=== PATIENT | female | born 1940 | race Caucasian/White ===

== ENCOUNTER 2019-05-20 17:51 | Inpatient (IN) | payer MEDICARE, BC, OTHER ==
--- NOTE | 2019-05-20 18:26 | ED ---
General Adult HPI - General Chief complaint: Arrhythmia/Palpitations Stated complaint: low heart rate Time Seen by Provider: 05/20/19 17:59 Source: EMS Mode of arrival: EMS Limitations: no limitations - History of Present Illness Initial comments: Dictation was produced using [employer] dictation software. please excuse any grammatical, word or spelling errors. Chief Complaint: 78-year-old female presents via transfer from [facility] for bradycardia and EKG and pelvis. History of Present Illness: she was initially seen at [facility] for worsening generalized weakness. Patient was initially evaluated [facility] by ER physician there. She is brought in by EMS from [facility] for worsening weakness. Upon EMS evaluation patient was found have bradycardia in the 40s. She was also found to have low blood pressure. She is given atropine by EMS with improvement of the bradycardia. [facility] physician noted that patient had abnormal EKG. [facility] physician noted that there were abnormal changes found in the lateral precordial leads. She was not started on heparin. Patient denies any chest pain or shortness of breath. Really, she complains of weakness. [facility] physician did discuss EKG with me however she was held at [facility] until results from the labs were completed. She was noted to have findings of acute kidney injury. She did have an elevated troponin measured at 0.05 The ROS documented in this emergency department record has been reviewed and confirmed by me. Those systems with pertinent positive or negative responses have been documented in the HPI. All other systems are other negative and/or noncontributory. PHYSICAL EXAM: General Impression: Alert and oriented x3, not in acute distress HEENT: Normocephalic atraumatic, extra-ocular movements intact, pupils equal and reactive to light bilaterally, mucous membranes moist. Cardiovascular: Heart regular rate and rhythm, S1&S2 audible, no murmurs, rubs or gallops Chest: Lungs clear to auscultation bilaterally, no rhonchi, no wheeze, no rales Abdomen: Bowel sounds present, abdomen soft, non-tender, non-distended, no organomegaly Musculoskeletal: Pulses present and equal in all extremities, no peripheral edema Motor: no focal deficits noted Neurological: CN II-XII grossly intact, no focal motor or sensory deficits noted Skin: Intact with no visualized rashes Psych: Normal affect and mood ED course:78-year-old female presents with generalized weakness. She was seen and evaluated [facility]. She did have a normal low hypomagnesemia. She is normotensive with a heart rate in the 40s. She was sent to our facility for cardiology consultation. Her coffee taster is Dr. Carter. She was given aspirin at [facility]. Patient is hemodynamically stable at this time. She is evaluated at bedside found not to be in any acute distress. Vitals are stable. EKG was obtained. No concerns for ST segment elevation DE at this time. She denies any ACS symptoms. No chest pain shortness of breath.Discussed patient case with Dr. Carter was operations project manager for cardiology. He is very familiar with patient. He will be reviewing patient's EKG.Dr. 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 There doesn't appear to be any significant increase compared to troponin ordered at [facility]. Patient be admitted with cardiology in consultation for bradycardia. Nephrology beating be consulted for acute kidney injury. EKG interpretation: Ventricular rate 45, sinus. Cardiac, CO interval 152, care is 146, QTC 496. No CO prolongation, no QTC prolongation, no ST or T-wave changes noted. - Related Data Home Medications Medication Instructions Recorded Confirmed Cyanocobalamin [Vitamin B-12] 500 mcg PO DAILY 04/23/14 05/20/19 Pravastatin Sodium [Pravachol] 20 mg PO HS 04/23/14 05/20/19 ALPRAZolam [Xanax] 0.25 mg PO BID PRN 05/20/19 05/20/19 Acetaminophen Tab [Tylenol] 650 mg PO Q6H PRN 05/20/19 05/20/19 Albuterol Nebulized [Ventolin 2.5 mg INHALATION RT-Q4H PRN 05/20/19 05/20/19 Nebulized] Amiodarone [Cordarone] 200 mg PO DAILY 05/20/19 05/20/19 Apixaban [Eliquis] 5 mg PO BID 05/20/19 05/20/19 Budesonide 1 mg INHALATION RT-BID 05/20/19 05/20/19 Divalproex Sodium [Depakote 500 mg PO DAILY 05/20/19 05/20/19 Sprinkle] Famotidine [Pepcid] 20 mg PO DAILY 05/20/19 05/20/19 Ferrous Sulfate [Feosol] 325 mg PO BID 05/20/19 05/20/19 Furosemide [Lasix] 20 mg PO BID 05/20/19 05/20/19 Insulin Lispro [humaLOG Kwikpen] 5 unit SQ AC-TID 05/20/19 05/20/19 Levothyroxine Sodium 112 mcg PO DAILY 05/20/19 05/20/19 Lisinopril [Prinivil] 5 mg PO DAILY 05/20/19 05/20/19 Magnesium Oxide 400 mg PO DAILY 05/20/19 05/20/19 Melatonin 10 mg PO HS 05/20/19 05/20/19 Metoprolol Tartrate [Lopressor] 25 mg PO BID 05/20/19 05/20/19 Midodrine [ProAmatine] 5 mg PO TID 05/20/19 05/20/19 [place]-3 Fatty Acids/Fish Oil [Fish 1 cap PO DAILY 05/20/19 05/20/19 Oil 1,000 mg Softgel] Sennosides [Senna] 8.6 mg PO BID 05/20/19 05/20/19 Sertraline [Zoloft] 50 mg PO DAILY 05/20/19 05/20/19 Sucralfate [Carafate] 1 gm PO ACHS 05/20/19 05/20/19 Previous Rx's Medication Instructions Recorded Insulin Glargine [Lantus] 20 unit SQ HS 30 Days vial 04/25/14 Allergies Allergy/AdvReac Type Severity Reaction Status Date / Time doxycycline calcium Allergy Anaphylaxis Verified 05/20/19 18:49 [From Vibramycin] doxycycline hyclate Allergy Anaphylaxis Verified 05/20/19 18:49 [From Vibramycin] doxycycline monohydrate Allergy Anaphylaxis Verified 05/20/19 18:49 [From Vibramycin] Iodinated Contrast- Oral and Allergy Anaphylaxis Verified 05/20/19 18:49 IV Dye [Iodinated Contrast Media - IV Dye] Review of Systems ROS Statement: Those systems with pertinent positive or pertinent negative responses have been documented in the HPI. ROS Other: All systems not noted in ROS Statement are negative. Past Medical History Past Medical History: Heart Failure, CVA/TIA, Diabetes Mellitus, Hypertension, Renal Disease Additional Past Medical History / Comment(s): TIAs 4 with previous TIA 18 months ago. Motor seizures left leg anemic, irregular heart beat History of Any Multi-Drug Resistant Organisms: None Reported Past Surgical History: Appendectomy, Hysterectomy, Orthopedic Surgery Additional Past Surgical History / Comment(s): left knee arthroscopy, cyst removal (pilonidal cyst) Past Anesthesia/Blood Transfusion Reactions: No Reported Reaction Past Psychological History: Anxiety Smoking Status: Never smoker Past Alcohol Use History: None Reported Past Drug Use History: None Reported - Past Family History Father Family Medical History: Congestive Heart Failure (CHF) Mother Family Medical History: Congestive Heart Failure (CHF) Sister(s) Family Medical History: Cancer (Breast cancer) Son(s) Family Medical History: Hypertension General Exam Limitations: no limitations Course Vital Signs 05/20/19 17:58 Temperature 97.6 F Pulse Rate 45 L Respiratory 16 Rate Blood Pressure 144/73 O2 Sat by Pulse 100 Oximetry Medical Decision Making - Lab Data Lab Results 05/20/19 Range/Units 18:36 Troponin I 0.045 H* (0.000-0.034) ng/mL Disposition Clinical Impression: Bradycardia, FREYA (acute kidney injury) Disposition: ADMITTED IP TO THIS [facility] Condition: Fair Referrals: Eleazar Mills MD [Primary Care Provider] - 1-2 days Decision Time: 19:44
[2019-05-20] MEDS ORDERED: HEPARIN SODIUM,PORCINE 5,000 UNIT/ML 1 ML VIAL IV ONE (18:36)
[2019-05-20] MEDS ORDERED: HEPARIN SODIUM,PORCINE 5,000 UNIT/ML 1 ML VIAL IV PRN (18:36)
[2019-05-20] MEDS ORDERED: HEPARIN SOD,PORK IN 0.45% NACL 25,000 UNIT in 0.45% NACL 1 250ML.BAG IV SCH (18:45)
[2019-05-20] MEDS ORDERED: SODIUM CHLORIDE 0.9% 1,000 ML IV SCH (19:45)
[2019-05-20] MEDS ORDERED: ACETAMINOPHEN TAB 325 MG TAB PO PRN ×2 (19:45→22:05)
[2019-05-20] MEDS ORDERED: NALOXONE 0.4 MG/ML 1 ML VIAL IV PRN (19:45)
[2019-05-20] MEDS ORDERED: ONDANSETRON 4 MG/2 ML VIAL IVP PRN (19:45)
[2019-05-20 21:22] LABS: Glucose,Whole Blood 156 mg/dL (75-99)
[2019-05-20] MEDS ORDERED: ALPRAZolam 0.25 MG TAB PO PRN (22:05)
[2019-05-20] MEDS: FERROUS SULFATE 325 MG TAB PO SCH (22:35)
[2019-05-20] MEDS: INSULIN DETEMIR (LEVEMIR) 100 UNIT/ML SYR SQ SCH (22:35)
[2019-05-20] MEDS: APIXABAN 5 MG TAB PO SCH (22:35)
[2019-05-21 06:16] LABS: Glucose,Whole Blood 131 mg/dL (75-99)
[2019-05-21] MEDS: SUCRALFATE 1 GM TAB PO SCH ×4 (06:33→20:29)
[2019-05-21] MEDS: INSULIN ASPART (NovoLOG) 100 UNIT/ML VIAL SQ SCH ×4 (06:33→21:00)
[2019-05-21] MEDS: LEVOTHYROXINE 112 MCG TAB PO SCH (06:33)
[2019-05-21 06:44] LABS: Anisocytosis Slight; Basophils % (A) 1 %; Eosinophils # (A) 0.3 k/uL (0-0.7); Eosinophils % (A) 4 %; HGB 9.6 gm/dL (11.4-16.0); Hypochromasia Slight; Lymphocytes # (A) 1.2 k/uL (1.0-4.8); Lymphocytes % (A) 18 %; MCH 28.2 pg (25.0-35.0); Mean Platelet Volume 6.9; Monocytes # (A) 0.6 k/uL (0-1.0); Monocytes % (A) 9 %; Neutrophils # (A) 4.2 k/uL (1.3-7.7); Neutrophils % (A) 66 %; Platelet Count 177 k/uL (150-450); RBC 3.41 m/uL (3.80-5.40); RDW 17.5 % (11.5-15.5); WBC 6.4 k/uL (3.8-10.6)
[2019-05-21 07:27] LABS: Calcium 9.6 mg/dL (8.4-10.2); Potassium 4.3 mmol/L (3.5-5.1)
[2019-05-21] MEDS: BUDESONIDE 1 MG/2 ML NEBU INHALATION SCH ×2 (08:53→19:57)
[2019-05-21] MEDS ORDERED: LISINOPRIL 5 MG TAB PO SCH (09:00)
[2019-05-21] MEDS ORDERED: NON FORMULARY DRUG (Omega-3 Fatty Acids/Fish Oil [Fish Oil 1,000 Mg Softgel] 1 CAP) PO SCH (09:00)
[2019-05-21] MEDS ORDERED: FUROSEMIDE 20 MG TAB PO SCH (09:00)
[2019-05-21] MEDS ORDERED: AMIODARONE 200 MG TAB PO SCH (09:00)
[2019-05-21] MEDS: DIVALPROEX SPRINKLE 125 MG CAP.SPRINK PO SCH (09:08)
[2019-05-21] MEDS: FAMOTIDINE 20 MG TAB PO SCH (09:08)
[2019-05-21] MEDS: FERROUS SULFATE 325 MG TAB PO SCH ×2 (09:08→20:29)
[2019-05-21] MEDS: APIXABAN 5 MG TAB PO SCH ×2 (09:08→20:29)
[2019-05-21] MEDS: SENNOSIDES 8.6 MG TAB PO SCH ×2 (09:08→20:29)
[2019-05-21] MEDS: SERTRALINE 50 MG TAB PO SCH (09:08)
[2019-05-21] MEDS: CYANOCOBALAMIN 500 MCG TAB PO SCH (09:08)
[2019-05-21] MEDS: MIDODRINE 5 MG TAB PO SCH ×3 (09:08→16:44)
--- NOTE | 2019-05-21 09:58 | P.HPIM ---
History of Present Illness H&P Date: 05/21/19 Chief Complaint: Generalized weakness This is 78 years old female who was discharged from intermediate to her daughter's home recently continued to have weakness at home after she had some improvement at the intermediate patient felt weak and lethargic and went to [facility] where she was bradycardic in the low 40s and patient was sent to [facility] for further evaluation by cardiology. EKG showed bradycardia seems to be sinus without significant AV block patient was found to have acute kidney injury and slight elevation in troponin and admitted for further evaluation. Patient daughter and grandson at the bedside who stated that she's been declining slowly and gradually but patient is alert and oriented 3 able to provide detailed information and stated that she was taking her Lasix everyday along with her cardiac medication including Lopressor and amiodarone and Lessina Prell. Patient on admission stated that her symptoms improved after stopping medication and has more energy today. Patient denied recent fever chills nausea vomiting abdominal pain dizziness lightheadedness or blurry vision stated that oral intake has been minimum since patient was sent to a intermediate. Patient is denying tobacco alcohol or drug abuse Review of Systems All 14 systems reviewed and negative except as above Past Medical History Past Medical History: Heart Failure, CVA/TIA, Diabetes Mellitus, Hypertension, Renal Disease Additional Past Medical History / Comment(s): TIAs 4 with previous TIA 18 months ago. Motor seizures left leg anemic, irregular heart beat; murmur History of Any Multi-Drug Resistant Organisms: None Reported Past Surgical History: Appendectomy, Hysterectomy, Orthopedic Surgery Additional Past Surgical History / Comment(s): left knee arthroscopy, cyst rem oval (pilonidal cyst) Past Anesthesia/Blood Transfusion Reactions: No Reported Reaction Smoking Status: Never smoker - Past Family History Father Family Medical History: Congestive Heart Failure (CHF) Mother Family Medical History: Congestive Heart Failure (CHF) Sister(s) Family Medical History: Cancer Additional Family Medical History / Comment(s): breast CA Son(s) Family Medical History: Hypertension Medications and Allergies Home Medications Medication Instructions Recorded Confirmed Type Cyanocobalamin [Vitamin B-12] 500 mcg PO DAILY 04/23/14 05/20/19 History Pravastatin Sodium [Pravachol] 20 mg PO HS 04/23/14 05/20/19 History ALPRAZolam [Xanax] 0.25 mg PO BID PRN 05/20/19 05/20/19 History Acetaminophen Tab [Tylenol] 650 mg PO Q6H PRN 05/20/19 05/20/19 History Albuterol Nebulized [Ventolin 2.5 mg INHALATION RT-Q4H PRN 05/20/19 05/20/19 History Nebulized] Amiodarone [Cordarone] 200 mg PO DAILY 05/20/19 05/20/19 History Apixaban [Eliquis] 5 mg PO BID 05/20/19 05/20/19 History Budesonide 1 mg INHALATION RT-BID 05/20/19 05/20/19 History Divalproex Sodium [Depakote 500 mg PO DAILY 05/20/19 05/20/19 History Sprinkle] Famotidine [Pepcid] 20 mg PO DAILY 05/20/19 05/20/19 History Ferrous Sulfate [Feosol] 325 mg PO BID 05/20/19 05/20/19 History Furosemide [Lasix] 20 mg PO BID 05/20/19 05/20/19 History Insulin Glargine [Lantus] 12 unit SQ HS 05/20/19 05/20/19 History Insulin Lispro [humaLOG Kwikpen] 5 unit SQ AC-TID 05/20/19 05/20/19 History Levothyroxine Sodium 112 mcg PO DAILY 05/20/19 05/20/19 History Lisinopril [Prinivil] 5 mg PO DAILY 05/20/19 05/20/19 History Magnesium Oxide 400 mg PO DAILY 05/20/19 05/20/19 History Melatonin 10 mg PO HS 05/20/19 05/20/19 History Metoprolol Tartrate [Lopressor] 25 mg PO BID 05/20/19 05/20/19 History Midodrine [ProAmatine] 5 mg PO TID 05/20/19 05/20/19 History [place]-3 Fatty Acids/Fish Oil [Fish 1 cap PO DAILY 05/20/19 05/20/19 History Oil 1,000 mg Softgel] Sennosides [Senna] 8.6 mg PO BID 05/20/19 05/20/19 History Sertraline [Zoloft] 50 mg PO DAILY 05/20/19 05/20/19 History Sucralfate [Carafate] 1 gm PO ACHS 05/20/19 05/20/19 History Allergies Allergy/AdvReac Type Severity Reaction Status Date / Time doxycycline calcium Allergy Anaphylaxis Verified 05/20/19 18:49 [From Vibramycin] doxycycline hyclate Allergy Anaphylaxis Verified 05/20/19 18:49 [From Vibramycin] doxycycline monohydrate Allergy Anaphylaxis Verified 05/20/19 18:49 [From Vibramycin] Iodinated Contrast- Oral and Allergy Anaphylaxis Verified 05/20/19 18:49 IV Dye [Iodinated Contrast Media - IV Dye] Physical Exam Vitals: Vital Signs Temp Pulse Pulse Resp BP BP BP 05/21/19 09:06 56 L 05/21/19 08:57 54 L 05/21/19 08:00 98.1 F 56 L 20 98/43 05/21/19 03:45 98.2 F 48 L 17 115/55 05/21/19 03:16 51 L 17 05/20/19 23:54 51 L 17 103/59 05/20/19 21:17 98.5 F 45 L 17 145/54 05/20/19 17:58 97.6 F 45 L 16 144/73 Pulse Ox 05/21/19 09:06 05/21/19 08:57 05/21/19 08:00 100 05/21/19 03:45 98 05/21/19 03:16 05/20/19 23:54 100 05/20/19 21:17 100 05/20/19 17:58 100 Intake and Output 05/20/19 05/21/19 05/21/19 22:59 06:59 14:59 Intake Total 420 200 Balance 420 200 Intake: Amount of Fluid Infused ( 20 ml) Oral 400 200 Other: Voiding Method Bedside Commode # Voids 3 1 Weight 58.06 kg 59 kg Gen.: in stated age, no acute distress, dehydrated Heart: Normal S1-S2 Lungs: Clear to auscultation bilaterally Abdomen: Soft, no tenderness, positive bowel sounds in all 4 quadrant no guarding or rebound Skin: No new rash Psych: Alert and oriented 3 Neuro: No focal deficit Lower extremity without edema Results CBC & Chem 7: 05/21/19 05:48 05/21/19 05:48 Labs: Abnormal Lab Results - Last 24 Hours (Table) 05/20/19 05/20/19 05/21/19 Range/Units 18:36 21:19 05:48 RBC 3.41 L (3.80-5.40) m/uL Hgb 9.6 L (11.4-16.0) gm/dL Hct 31.0 L (34.0-46.0) % RDW 17.5 H (11.5-15.5) % Carbon Dioxide (22-30) mmol/L BUN (7-17) mg/dL Creatinine (0.52-1.04) mg/dL Glucose (74-99) mg/dL POC Glucose (mg/dL) 156 H (75-99) mg/dL Troponin I 0.045 H* (0.000-0.034) ng/mL 05/21/19 05/21/19 05/21/19 Range/Units 05:48 05:48 06:15 RBC (3.80-5.40) m/uL Hgb (11.4-16.0) gm/dL Hct (34.0-46.0) % RDW (11.5-15.5) % Carbon Dioxide 31 H (22-30) mmol/L BUN 70 H (7-17) mg/dL Creatinine 2.50 H (0.52-1.04) mg/dL Glucose 124 H (74-99) mg/dL POC Glucose (mg/dL) 131 H (75-99) mg/dL Troponin I 0.037 H* (0.000-0.034) ng/mL Thrombosis Risk Factor Assmnt - Choose All That Apply Any of the Below Risk Factors Present?: No Each Risk Factor Represents 3 Points: Age 75 years or older Thrombosis Risk Factor Assessment Total Risk Factor Score: 3 Thrombosis Risk Factor Assessment Level: Moderate Risk Assessment and Plan Assessment: 1. Generalized weakness. 2. Acute kidney injury likely secondary to Lasix and dehydration. 3. Bradycardia. 4. History of atrial fibrillation. 5. Debility and deconditioning. 6. Slight elevation in troponin likely related to acute kidney injury and demand mismatch ischemia. 7. Chronic respiratory failure home oxygen dependent for the last 2 month. 8. Insomnia. 9. Polypharmacy. 10. Chronic nausea. 11. Anxiety and depression. 12. Diabetes mellitus type 2 insulin-dependent Plan discussed with patient and her family at the bedside where I would like to give patient's normal saline at 100 mL/h for 24 hours repeat her electrolytes in the morning and magnesium I would like also to hold any nephrotoxic medication including Lasix and lisinopril. For her bradycardia her heart rate that has improved since yesterday after I held amiodarone and Lopressor I would like to have cardiology evaluated the patient's for necessity of her treatment continue with factor X inhibitors as anticoagulation and heart rate currently seems to be controlled. We'll resume her home medication and insulin sliding scale along with her long-acting insulin. Patient will need evaluation from physical therapy prior to discharge and during the hospital stay
[2019-05-21] MEDS: SODIUM CHLORIDE 0.9% 1,000 ML IV SCH ×2 (10:28→20:28)
[2019-05-21 12:02] LABS: Glucose,Whole Blood 155 mg/dL (75-99)
[2019-05-21] MEDS: MAGNESIUM OXIDE 400 MG TAB PO SCH (13:39)
--- NOTE | 2019-05-21 15:08 | P.CRDCN ---
History of Present Illness History of present illness: This is Lidia Contreras PA-C dictating a consult on this patient The patient was interviewed and examined by me IMPRESSION / ASSESSMENT: Symptomatic sinus bradycardia, likely underlying sick sinus syndrome exacerbated by drug therapy with amiodarone and metoprolol, improving Borderline elevated troponin, trending down, most likely secondary to worsening renal function possibly exacerbated by bradycardia Paroxysmal atrial fibrillation, on anticoagulation acute kidney injury PLAN: Continue holding metoprolol and amiodarone Lasix and lisinopril are on hold now, agree Continue anticoagulation with Eliquis Check TSH and mag HPI Patient is a 78-year-old female with a past medical history of paroxysmal atrial fibrillation who intially presented to [facility] ED with complaints of weakness. She states she has leg weakness at baseline uses a walker but over the last few days and has gotten worse. She also endorses worsening shortness of breath on exertion. Denies chest pain or palpitations, lightheadedness, dizziness, syncope. She was transferred to after being found to have an abnormal EKG. EKG upon admission to [facility] showed sinus bradycardia with a right bundle branch block, biphasic T waves anteriorly, prolonged QT interval. She was also found to have an acute kidney injury with elevated creatinine of 2.5 and BUN 70 as well as elevated troponin at 0.045. Her metoprolol and amiodarone were held. She is seen and examined resting in bed, feeling better, denies any dizziness, shortness of breath, chest pain, palpitations. ROS: No fevers, chills or rigors, no cough, phlegm or expectoration, no nausea, vomiting or diarrhea, no hematuria, dysuria, no strokes or seizures, no skin lesions. EXAMINATION: Temperature 98.1F, pulse 56, blood pressure 98/43, oxygen saturation 100% on 3 L nasal cannula On exam patient is resting comfortably in bed, in no acute distress Breath sounds mildly diminished but clear bilaterally Heart is bradycardic and regular, systolic murmur appreciated No elevated JVD No lower extremity edema REVIEW OF LABS, ECG & MEDICAL DATA Initial EKG showed sinus bradycardia with a right bundle branch block, biphasic T waves anteriorly, prolonged QT interval, she has had deep T wave inversions in the precordial leads on EKGs in prior hospitalizatons Telemetry revealed sinus bradycardia WBC 6.4, hemoglobin 9.6, potassium 4.3, BUN 70, creatinine 2.5, troponin 0.037 from 0.045 Past Medical History Past Medical History: Heart Failure, CVA/TIA, Diabetes Mellitus, Hypertension, Renal Disease Additional Past Medical History / Comment(s): TIAs 4 with previous TIA 18 months ago. Motor seizures left leg anemic, irregular heart beat; murmur History of Any Multi-Drug Resistant Organisms: None Reported Past Surgical History: Appendectomy, Hysterectomy, Orthopedic Surgery Additional Past Surgical History / Comment(s): left knee arthroscopy, cyst removal (pilonidal cyst) Past Anesthesia/Blood Transfusion Reactions: No Reported Reaction Smoking Status: Never smoker - Past Family History Father Family Medical History: Congestive Heart Failure (CHF) Mother Family Medical History: Congestive Heart Failure (CHF) Sister(s) Family Medical History: Cancer Additional Family Medical History / Comment(s): breast CA Son(s) Family Medical History: Hypertension Medications and Allergies Home Medications Medication Instructions Recorded Confirmed Type Cyanocobalamin [Vitamin B-12] 500 mcg PO DAILY 04/23/14 05/20/19 History Pravastatin Sodium [Pravachol] 20 mg PO HS 04/23/14 05/20/19 History ALPRAZolam [Xanax] 0.25 mg PO BID PRN 05/20/19 05/20/19 History Acetaminophen Tab [Tylenol] 650 mg PO Q6H PRN 05/20/19 05/20/19 History Albuterol Nebulized [Ventolin 2.5 mg INHALATION RT-Q4H PRN 05/20/19 05/20/19 History Nebulized] Amiodarone [Cordarone] 200 mg PO DAILY 05/20/19 05/20/19 History Apixaban [Eliquis] 5 mg PO BID 05/20/19 05/20/19 History Budesonide 1 mg INHALATION RT-BID 05/20/19 05/20/19 History Divalproex Sodium [Depakote 500 mg PO DAILY 05/20/19 05/20/19 History Sprinkle] Famotidine [Pepcid] 20 mg PO DAILY 05/20/19 05/20/19 History Ferrous Sulfate [Feosol] 325 mg PO BID 05/20/19 05/20/19 History Furosemide [Lasix] 20 mg PO BID 05/20/19 05/20/19 History Insulin Glargine [Lantus] 12 unit SQ HS 05/20/19 05/20/19 History Insulin Lispro [humaLOG Kwikpen] 5 unit SQ AC-TID 05/20/19 05/20/19 History Levothyroxine Sodium 112 mcg PO DAILY 05/20/19 05/20/19 History Lisinopril [Prinivil] 5 mg PO DAILY 05/20/19 05/20/19 History Magnesium Oxide 400 mg PO DAILY 05/20/19 05/20/19 History Melatonin 10 mg PO HS 05/20/19 05/20/19 History Metoprolol Tartrate [Lopressor] 25 mg PO BID 05/20/19 05/20/19 History Midodrine [ProAmatine] 5 mg PO TID 05/20/19 05/20/19 History [place]-3 Fatty Acids/Fish Oil [Fish 1 cap PO DAILY 05/20/19 05/20/19 History Oil 1,000 mg Softgel] Sennosides [Senna] 8.6 mg PO BID 05/20/19 05/20/19 History Sertraline [Zoloft] 50 mg PO DAILY 05/20/19 05/20/19 History Sucralfate [Carafate] 1 gm PO ACHS 05/20/19 05/20/19 History Allergies Allergy/AdvReac Type Severity Reaction Status Date / Time doxycycline calcium Allergy Anaphylaxis Verified 05/20/19 18:49 [From Vibramycin] doxycycline hyclate Allergy Anaphylaxis Verified 05/20/19 18:49 [From Vibramycin] doxycycline monohydrate Allergy Anaphylaxis Verified 05/20/19 18:49 [From Vibramycin] Iodinated Contrast- Oral and Allergy Anaphylaxis Verified 05/20/19 18:49 IV Dye [Iodinated Contrast Media - IV Dye] Physical Exam Vitals: Vital Signs Temp Pulse Pulse Resp BP BP BP 05/21/19 09:06 56 L 05/21/19 08:57 54 L 05/21/19 08:00 98.1 F 56 L 20 98/43 05/21/19 03:45 98.2 F 48 L 17 115/55 05/21/19 03:16 51 L 17 05/20/19 23:54 51 L 17 103/59 05/20/19 21:17 98.5 F 45 L 17 145/54 05/20/19 17:58 97.6 F 45 L 16 144/73 Pulse Ox 05/21/19 09:06 05/21/19 08:57 05/21/19 08:00 100 05/21/19 03:45 98 05/21/19 03:16 05/20/19 23:54 100 05/20/19 21:17 100 05/20/19 17:58 100 Intake and Output 05/20/19 05/21/19 05/21/19 22:59 06:59 14:59 Intake Total 420 200 120 Balance 420 200 120 Intake: Amount of Fluid Infused ( 20 ml) Oral 400 200 120 Other: Voiding Method Bedside Commode # Voids 3 1 Weight 58.06 kg 59 kg Results 05/21/19 05:48 05/21/19 05:48 Cardiac Enzymes 05/20/19 05/21/19 Range/Units 18:36 05:48 Troponin I 0.045 H* 0.037 H* (0.000-0.034) ng/mL CBC 05/21/19 Range/Units 05:48 WBC 6.4 (3.8-10.6) k/uL RBC 3.41 L (3.80-5.40) m/uL Hgb 9.6 L (11.4-16.0) gm/dL Hct 31.0 L (34.0-46.0) % Plt Count 177 (150-450) k/uL Comprehensive Metabolic Panel 05/21/19 Range/Units 05:48 Sodium 141 (137-145) mmol/L Potassium 4.3 (3.5-5.1) mmol/L Chloride 102 (98-107) mmol/L Carbon Dioxide 31 H (22-30) mmol/L BUN 70 H (7-17) mg/dL Creatinine 2.50 H (0.52-1.04) mg/dL Glucose 124 H (74-99) mg/dL Calcium 9.6 (8.4-10.2) mg/dL Current Medications Generic Name Dose Route Start Last Admin Trade Name Freq PRN Reason Stop Dose Admin Acetaminophen 650 mg 05/20/19 19:45 Tylenol Tab PO Q6HR PRN Mild Pain or Fever > 100.5 Acetaminophen 650 mg 05/20/19 22:05 Tylenol Tab PO Q6H PRN Pain Albuterol Sulfate 2.5 mg 05/20/19 22:05 Ventolin Nebulized INHALATION RT-Q4H PRN Shortness Of Breath Alprazolam 0.25 mg 05/20/19 22:05 Xanax PO BID PRN Anxiety Apixaban 5 mg 05/20/19 22:30 05/21/19 09:08 Eliquis PO 5 mg BID JC Administration Budesonide 1 mg 05/21/19 08:00 05/21/19 08:53 Pulmicort INHALATION 1 mg RT-BID JC Administration Cyanocobalamin 500 mcg 05/21/19 09:00 05/21/19 09:08 Vitamin B-12 PO 500 mcg DAILY JC Administration Divalproex Sodium 500 mg 05/21/19 09:00 05/21/19 09:08 Depakote Sprinkle PO 500 mg DAILY JC Administration Famotidine 20 mg 05/21/19 09:00 05/21/19 09:08 Pepcid PO 20 mg DAILY JC Administration Ferrous Sulfate 325 mg 05/20/19 22:15 05/21/19 09:08 Feosol PO 325 mg BID JC Administration Sodium Chloride 1,000 mls @ 100 mls/hr 05/21/19 09:30 05/21/19 10:28 Saline 0.9% IV 100 mls/hr .Q10H JC Administration Insulin Aspart 0 unit 05/21/19 07:30 05/21/19 12:43 Novolog SQ 1 unit ACHS JC Administration Protocol Insulin Detemir 12 unit 05/20/19 22:30 05/20/19 22:35 Levemir SQ 12 unit HS JC Administration Levothyroxine Sodium 112 mcg 05/21/19 06:30 05/21/19 06:33 Synthroid PO 112 mcg DAILY@0630 JC Administration Magnesium Oxide 400 mg 05/21/19 09:00 Mag-Ox PO DAILY JC Melatonin 10 mg 05/21/19 21:00 Melatonin PO HS JC Midodrine 5 mg 05/21/19 09:00 05/21/19 09:08 Proamatine PO 5 mg TID@0900,1300,1700 JC Administration Naloxone HCl 0.2 mg 05/20/19 19:45 Narcan IV Q2M PRN Opioid Reversal Ondansetron HCl 4 mg 05/20/19 19:45 Zofran IVP Q8HR PRN Nausea And Vomiting Pravastatin Sodium 20 mg 05/21/19 21:00 Pravachol PO HS JC Senna 8.6 mg 05/21/19 09:00 05/21/19 09:08 Senokot PO 8.6 mg BID JC Administration Sertraline HCl 50 mg 05/21/19 09:00 05/21/19 09:08 Zoloft PO 50 mg DAILY JC Administration Sucralfate 1 gm 05/21/19 07:30 05/21/19 06:33 Carafate PO 1 gm ACHS JC Administration Intake and Output 05/20/19 05/21/19 05/21/19 22:59 06:59 14:59 Intake Total 420 200 120 Balance 420 200 120 Intake: Amount of Fluid Infused ( 20 ml) Oral 400 200 120 Other: Voiding Method Bedside Commode # Voids 3 1 Weight 58.06 kg 59 kg 05/21/19 05:48 05/21/19 05:48
[2019-05-21 16:59] LABS: Glucose,Whole Blood 113 mg/dL (75-99)
[2019-05-21] MEDS: PRAVASTATIN SODIUM 20 MG TAB PO SCH (20:29)
[2019-05-21] MEDS: MELATONIN 5 MG TABLET PO SCH (20:29)
[2019-05-21 20:54] LABS: Glucose,Whole Blood 149 mg/dL (75-99)
[2019-05-21] MEDS: INSULIN DETEMIR (LEVEMIR) 100 UNIT/ML SYR SQ SCH (20:59)
[2019-05-22] MEDS: SODIUM CHLORIDE 0.9% 1,000 ML IV SCH (05:25)
[2019-05-22 06:12] LABS: Glucose,Whole Blood 108 mg/dL (75-99)
[2019-05-22] MEDS: INSULIN ASPART (NovoLOG) 100 UNIT/ML VIAL SQ SCH ×4 (06:14→21:06)
[2019-05-22] MEDS: SUCRALFATE 1 GM TAB PO SCH ×4 (06:18→20:30)
[2019-05-22] MEDS: LEVOTHYROXINE 112 MCG TAB PO SCH (06:18)
[2019-05-22 07:05] LABS: ALT <6 U/L (9-52); AST 13 U/L (14-36); African American GFR (CKD) 33 (>60 ml/min/1.73 sqM); Albumin 3.3 g/dL (3.5-5.0); Alkaline Phosphatase 47 U/L (38-126); Anion Gap 10 mmol/L; Blood Urea Nitrogen 58 mg/dL (7-17); Calcium 9.3 mg/dL (8.4-10.2); Carbon Dioxide 24 mmol/L (22-30); Chloride 109 mmol/L (98-107); Glucose 107 mg/dL (74-99); Non-African American GFR(CKD) 28 (>60 ml/min/1.73 sqM); Potassium 4.5 mmol/L (3.5-5.1); Sodium 143 mmol/L (137-145); Total Bilirubin 0.2 mg/dL (0.2-1.3); Total Protein 5.9 g/dL (6.3-8.2)
--- NOTE | 2019-05-22 07:53 | P.NPCON ---
History of Present Illness - Reason for Consult Consult date: 05/22/19 acute renal failure - Chief Complaint Acute kidney injury and chronic kidney disease - History of Present Illness This is a 78-year-old female known to us with chronic kidney disease, was admitted because of bradycardia. On admission her troponin was slightly elevated at 0.045. Creatinine went up to 5 from a baseline of 1.7 She has been in a usp for the last 6 months because of difficulty in walking. Recently went home to live with her daughter. She became weak there and therefore was seen in the emergency room at [facility] found to be bradycardic and transferred here to [facility]. Overnight she was given IV fluids. Her admission creatinine was above her baseline. Creatinine was 2.5 and is down to 1.7 which is approximately her baseline. She does have shortness of breath on walking. Occasionally feels dizzy. No cough no fever no chills. No chest pain. No nausea vomiting or diarrhea. No changes in medications. Not taking any nonsteroidals or antibiotics recently Her chronic kidney disease secondary to nephrosclerosis, chronic kidney disease stage III. She is known with type 2 diabetes hyperlipidemia seizure disorder hypothyroidism and known with any Past surgical history hysterectomy appendectomy. At home she was on Lasix 20 mg twice a day, lisinopril 5 mg. Past Medical History Past Medical History: Heart Failure, CVA/TIA, Diabetes Mellitus, Hypertension, Renal Disease Additional Past Medical History / Comment(s): TIAs 4 with previous TIA 18 months ago. Motor seizures left leg anemic, irregular heart beat; murmur History of Any Multi-Drug Resistant Organisms: None Reported Past Surgical History: Appendectomy, Hysterectomy, Orthopedic Surgery Additional Past Surgical History / Comment(s): left knee arthroscopy, cyst removal (pilonidal cyst) Past Anesthesia/Blood Transfusion Reactions: No Reported Reaction Smoking Status: Never smoker - Past Family History Father Family Medical History: Congestive Heart Failure (CHF) Mother Family Medical History: Congestive Heart Failure (CHF) Sister(s) Family Medical History: Cancer Additional Family Medical History / Comment(s): breast CA Son(s) Family Medical History: Hypertension Medications and Allergies Home Medications Medication Instructions Recorded Confirmed Type Cyanocobalamin [Vitamin B-12] 500 mcg PO DAILY 04/23/14 05/20/19 History Pravastatin Sodium [Pravachol] 20 mg PO HS 04/23/14 05/20/19 History ALPRAZolam [Xanax] 0.25 mg PO BID PRN 05/20/19 05/20/19 History Acetaminophen Tab [Tylenol] 650 mg PO Q6H PRN 05/20/19 05/20/19 History Albuterol Nebulized [Ventolin 2.5 mg INHALATION RT-Q4H PRN 05/20/19 05/20/19 History Nebulized] Amiodarone [Cordarone] 200 mg PO DAILY 05/20/19 05/20/19 History Apixaban [Eliquis] 5 mg PO BID 05/20/19 05/20/19 History Budesonide 1 mg INHALATION RT-BID 05/20/19 05/20/19 History Divalproex Sodium [Depakote 500 mg PO DAILY 05/20/19 05/20/19 History Sprinkle] Famotidine [Pepcid] 20 mg PO DAILY 05/20/19 05/20/19 History Ferrous Sulfate [Feosol] 325 mg PO BID 05/20/19 05/20/19 History Furosemide [Lasix] 20 mg PO BID 05/20/19 05/20/19 History Insulin Glargine [Lantus] 12 unit SQ HS 05/20/19 05/20/19 History Insulin Lispro [humaLOG Kwikpen] 5 unit SQ AC-TID 05/20/19 05/20/19 History Levothyroxine Sodium 112 mcg PO DAILY 05/20/19 05/20/19 History Lisinopril [Prinivil] 5 mg PO DAILY 05/20/19 05/20/19 History Magnesium Oxide 400 mg PO DAILY 05/20/19 05/20/19 History Melatonin 10 mg PO HS 05/20/19 05/20/19 History Metoprolol Tartrate [Lopressor] 25 mg PO BID 05/20/19 05/20/19 History Midodrine [ProAmatine] 5 mg PO TID 05/20/19 05/20/19 History [place]-3 Fatty Acids/Fish Oil [Fish 1 cap PO DAILY 05/20/19 05/20/19 History Oil 1,000 mg Softgel] Sennosides [Senna] 8.6 mg PO BID 05/20/19 05/20/19 History Sertraline [Zoloft] 50 mg PO DAILY 05/20/19 05/20/19 History Sucralfate [Carafate] 1 gm PO ACHS 05/20/19 05/20/19 History Allergies Allergy/AdvReac Type Severity Reaction Status Date / Time doxycycline calcium Allergy Anaphylaxis Verified 05/20/19 18:49 [From Vibramycin] doxycycline hyclate Allergy Anaphylaxis Verified 05/20/19 18:49 [From Vibramycin] doxycycline monohydrate Allergy Anaphylaxis Verified 05/20/19 18:49 [From Vibramycin] Iodinated Contrast- Oral and Allergy Anaphylaxis Verified 05/20/19 18:49 IV Dye [Iodinated Contrast Media - IV Dye] Physical Exam Vitals: Vital Signs Temp Pulse Pulse Resp BP Pulse Ox 05/22/19 03:29 55 L 17 05/22/19 03:28 97.8 F 55 L 17 148/55 97 05/22/19 00:00 98 F 62 20 142/62 100 05/21/19 20:06 56 L 05/21/19 20:00 98.2 F 50 L 20 152/57 100 05/21/19 19:57 53 L 22 98 05/21/19 15:53 97.7 F 52 L 24 131/61 100 05/21/19 12:00 98.1 F 55 L 20 135/65 100 05/21/19 09:06 56 L 05/21/19 08:57 54 L 05/21/19 08:00 98.1 F 56 L 20 98/43 100 Intake and Output 05/21/19 05/22/19 05/22/19 22:59 06:59 14:59 Intake Total 222 1800 Output Total 500 4 Balance -278 1796 Intake: Intake, IV Titration 1200 Amount Sodium Chloride 0.9% 1, 1200 000 ml @ 100 mls/hr IV . Q10H [facility] Rx#:[id number] Oral 222 600 Output: Urine 500 Stool 4 Other: Voiding Method Bedside Commode Bedside Commode # Voids 3 Weight 57.2 kg On examination she is awake alert oriented comfortable HEENT exam no JVP neck is supple no facial asymmetry Lungs exams auscultation good air entry bilaterally. Heart sounds are unremarkable for any murmur rub gallop Abdomen is soft nontender no organomegaly ascites masses Extremity exam reveals trace edema Neurologically awake alert oriented has generalized weakness. Results - Lab Results Most recent lab results Calcium 9.3 mg/dL (8.4-10.2) 05/22/19 05:47 Magnesium 2.0 mg/dL (1.6-2.3) 05/22/19 05:47 05/21/19 05:48 05/22/19 05:47 Assessment and Plan Assessment: Impression 1. Acute kidney injury from prerenal. She was on diuretics and lisinopril., Additionally bradycardia might have caused an element of prerenal state. Creatinine improved from 2.5-1.7 which is her baseline 2. Chronic kidney disease stage III baseline creatinine 1.7, GFR is 28 mL per minute, but as an outpatient she is in the 35-49 range 3. Bradycardia secondary to medications. 4. Diabetes mellitus with no proteinuria. 5. Anemia of chronic kidney disease, hemoglobin is 9.6 nearly at target. 6. Mild degree of metabolic alkalosis on admission, bicarb of 31. Etiology is diuresis improved with normal saline with a bicarb of 24. Recommendation 1. Discontinue IV fluids. 2. Check iron saturation. 3. Resume lisinopril 5 mg a day 4. Monitor labs, blood pressure and heart rate Thank you for this consultation we'll continue to follow
[2019-05-22] MEDS: SERTRALINE 50 MG TAB PO SCH (08:38)
[2019-05-22] MEDS: MIDODRINE 5 MG TAB PO SCH ×2 (08:38→22:51)
[2019-05-22] MEDS: DIVALPROEX SPRINKLE 125 MG CAP.SPRINK PO SCH (08:38)
[2019-05-22] MEDS: SENNOSIDES 8.6 MG TAB PO SCH ×2 (08:38→20:30)
[2019-05-22] MEDS: APIXABAN 5 MG TAB PO SCH ×2 (08:38→20:30)
[2019-05-22] MEDS: FAMOTIDINE 20 MG TAB PO SCH (08:38)
[2019-05-22] MEDS: MAGNESIUM OXIDE 400 MG TAB PO SCH (08:38)
[2019-05-22] MEDS: LISINOPRIL 5 MG TAB PO SCH (08:38)
[2019-05-22] MEDS: CYANOCOBALAMIN 500 MCG TAB PO SCH (08:38)
[2019-05-22] MEDS: FERROUS SULFATE 325 MG TAB PO SCH ×2 (08:39→20:30)
[2019-05-22] MEDS: BUDESONIDE 1 MG/2 ML NEBU INHALATION SCH ×2 (08:52→20:13)
--- NOTE | 2019-05-22 11:04 | P.PN ---
Subjective Progress Note Date: 05/22/19 Principal diagnosis: Bradycardia Patient stated that she is at least 50% improved since admission denying any dizziness lightheadedness or blurry vision. Patient is tolerating diet without difficulty and stated that fluid infusion made her feel much better Objective - Vital Signs Vital signs: Vital Signs Temp 98.4 F 05/22/19 08:00 Pulse 96 05/22/19 09:04 Resp 28 H 05/22/19 08:00 BP 150/69 05/22/19 08:00 Pulse Ox 98 05/22/19 08:54 Intake & Output 05/21/19 05/22/19 05/22/19 18:59 06:59 18:59 Intake Total 342 1800 100 Output Total 500 4 200 Balance -158 1796 -100 Weight 57.2 kg Intake: Intake, IV Titration 1200 Amount Sodium Chloride 0.9% 1, 1200 000 ml @ 100 mls/hr IV . Q10H [facility] Rx#:[id number] Oral 342 600 100 Output: Urine 500 200 Stool 4 Other: Voiding Method Bedside Commode Bedside Commode Bedside Commode # Voids 3 # Bowel Movements 1 - Exam Gen.: in stated age, no acute distress Heart: Normal S1-S2 Lungs: Clear to auscultation bilaterally Abdomen: Soft, no tenderness, positive bowel sounds in all 4 quadrant no guarding or rebound Skin: No new rash Psych: Alert and oriented 3 Neuro: No focal deficit - Labs CBC & Chem 7: 05/21/19 05:48 05/22/19 05:47 Labs: Abnormal Lab Results - Last 24 Hours (Table) 05/21/19 05/21/19 05/21/19 Range/Units 11:58 16:58 20:52 Chloride (98-107) mmol/L BUN (7-17) mg/dL Creatinine (0.52-1.04) mg/dL Glucose (74-99) mg/dL POC Glucose (mg/dL) 155 H 113 H 149 H (75-99) mg/dL AST (14-36) U/L ALT (9-52) U/L Total Protein (6.3-8.2) g/dL Albumin (3.5-5.0) g/dL 05/22/19 05/22/19 Range/Units 05:47 06:11 Chloride 109 H (98-107) mmol/L BUN 58 H (7-17) mg/dL Creatinine 1.72 H (0.52-1.04) mg/dL Glucose 107 H (74-99) mg/dL POC Glucose (mg/dL) 108 H (75-99) mg/dL AST 13 L (14-36) U/L ALT <6 L (9-52) U/L Total Protein 5.9 L (6.3-8.2) g/dL Albumin 3.3 L (3.5-5.0) g/dL Assessment and Plan Assessment: 1. Generalized weakness. 2. Acute kidney injury likely secondary to Lasix and dehydration. 3. Bradycardia. 4. History of atrial fibrillation. 5. Debility and deconditioning. 6. Slight elevation in troponin likely related to acute kidney injury and demand mismatch ischemia. 7. Chronic respiratory failure home oxygen dependent for the last 2 month. 8. Insomnia. 9. Polypharmacy. 10. Chronic nausea. 11. Anxiety and depression. 12. Diabetes mellitus type 2 insulin-dependent Plan discussed with patient and her family at the bedside where I would like to give patient's normal saline at 100 mL/h for 24 hours repeat her electrolytes in the morning and magnesium I would like also to hold any nephrotoxic medication including Lasix and lisinopril. For her bradycardia her heart rate that has improved since yesterday after I held amiodarone and Lopressor I would like to have cardiology evaluated the patient's for necessity of her treatment continue with factor X inhibitors as anticoagulation and heart rate currently seems to be controlled. We'll resume her home medication and insulin sliding scale along with her long-acting insulin. Patient will need evaluation from physical therapy prior to discharge and during the hospital stay Discussed with nursing staff to wean off oxygen as tolerated as patient saturati on is 100% on 2 L nasal cannula and parameters should be no oxygen unless she is below 89%. I would like to discontinue IV fluid, encourage oral intake, repeat kidney function in the morning as currently creatinine is back at baseline around 1.7. Follow up with nephrology recommendation. Cardiology recommendation. Continue holding amiodarone and beta ty as her heart rate is becoming higher and patient is becoming asymptomatic and patient is not candidate for pacemaker at this point and may consider close follow-up with cardiology outpatient for determination of her cardiac medication
[2019-05-22 11:56] LABS: Glucose,Whole Blood 174 mg/dL (75-99)
--- NOTE | 2019-05-22 12:32 | P.PN ---
Subjective Patient is resting comfortably in bed. No dizziness lightheadedness chest discomfort. Heart rates have improved after stopping amiodarone and metoprolol she remained in sinus rhythm No dizziness lightheadedness chest discomfort no orthopnea PND does not appear short of breath Labs are reviewed sodium 143 potassium 4.5 BUN 58 creatinine 1.7 On examination she is afebrile 98.3F pulse rate in the 50s respirations normal Blood pressure 150-68 mmHg That sounds are reduced bilaterally with no rhonchi no crackles Heart sounds are regular no murmurs Abdomen soft Extended is warm Impression History of paroxysmal atrial fibrillation on amiodarone and beta blockers Sick Sinus Syndrome Sinus bradycardia upon admission with prolonged QT interval Improvement in heart rates after stopping amiodarone and beta blockers TSH is 0.9 Elevated blood pressure secondary to midodrine use Suggest Please consider stopping midodrine now Continue anticoagulation with ELIQUIS 5 g twice daily Avoid amiodarone If she continues to have paroxysms of atrial fibrillation then she would need permanent pacing for management of tachybradycardia syndrome, at that point At this point I'm not recommending permanent pacing Objective - Vital Signs Vital signs: Vital Signs Temp 98.3 F 05/22/19 11:27 Pulse 55 L 05/22/19 11:27 Resp 20 05/22/19 11:27 BP 152/68 05/22/19 11:27 Pulse Ox 88 L 05/22/19 11:27 Intake & Output 05/21/19 05/22/19 05/22/19 18:59 06:59 18:59 Intake Total 342 1800 100 Output Total 500 4 200 Balance -158 1796 -100 Weight 57.2 kg Intake: Intake, IV Titration 1200 Amount Sodium Chloride 0.9% 1, 1200 000 ml @ 100 mls/hr IV . Q10H [facility] Rx#:[id number] Oral 342 600 100 Output: Urine 500 200 Stool 4 Other: Voiding Method Bedside Commode Bedside Commode Bedside Commode # Voids 3 1 # Bowel Movements 1 - Labs CBC & Chem 7: 05/21/19 05:48 05/22/19 05:47 Labs: Abnormal Lab Results - Last 24 Hours (Table) 05/21/19 05/21/19 05/22/19 Range/Units 16:58 20:52 05:47 Chloride 109 H (98-107) mmol/L BUN 58 H (7-17) mg/dL Creatinine 1.72 H (0.52-1.04) mg/dL Glucose 107 H (74-99) mg/dL POC Glucose (mg/dL) 113 H 149 H (75-99) mg/dL AST 13 L (14-36) U/L ALT <6 L (9-52) U/L Total Protein 5.9 L (6.3-8.2) g/dL Albumin 3.3 L (3.5-5.0) g/dL 05/22/19 05/22/19 Range/Units 06:11 11:34 Chloride (98-107) mmol/L BUN (7-17) mg/dL Creatinine (0.52-1.04) mg/dL Glucose (74-99) mg/dL POC Glucose (mg/dL) 108 H 174 H (75-99) mg/dL AST (14-36) U/L ALT (9-52) U/L Total Protein (6.3-8.2) g/dL Albumin (3.5-5.0) g/dL
[2019-05-22 16:57] LABS: Glucose,Whole Blood 169 mg/dL (75-99)
[2019-05-22] MEDS: ALBUTEROL NEBULIZED 2.5 MG/3 ML INHALATION PRN (20:13)
[2019-05-22 20:29] LABS: Glucose,Whole Blood 168 mg/dL (75-99)
[2019-05-22] MEDS: PRAVASTATIN SODIUM 20 MG TAB PO SCH (20:30)
[2019-05-22] MEDS: MELATONIN 5 MG TABLET PO SCH (20:30)
[2019-05-22] MEDS: INSULIN DETEMIR (LEVEMIR) 100 UNIT/ML SYR SQ SCH (21:06)
[2019-05-23 06:35] LABS: Glucose,Whole Blood 112 mg/dL (75-99)
[2019-05-23] MEDS: INSULIN ASPART (NovoLOG) 100 UNIT/ML VIAL SQ SCH ×4 (06:36→20:48)
[2019-05-23] MEDS: SUCRALFATE 1 GM TAB PO SCH ×4 (06:51→20:38)
[2019-05-23] MEDS: LEVOTHYROXINE 112 MCG TAB PO SCH (06:51)
[2019-05-23 07:48] LABS: Calcium 9.8 mg/dL (8.4-10.2); Potassium 4.5 mmol/L (3.5-5.1)
[2019-05-23] MEDS: BUDESONIDE 1 MG/2 ML NEBU INHALATION SCH ×2 (07:57→19:29)
[2019-05-23] MEDS: ALBUTEROL NEBULIZED 2.5 MG/3 ML INHALATION PRN (07:57)
[2019-05-23 08:26] LABS: Anisocytosis Slight; Basophils % (A) 1 %; Eosinophils # (A) 0.2 k/uL (0-0.7); Eosinophils % (A) 3 %; Hypochromasia Marked; Lymphocytes # (A) 0.8 k/uL (1.0-4.8); Lymphocytes % (A) 13 %; MCH 28.7 pg (25.0-35.0); MCHC 31.1 g/dL (31.0-37.0); MCV 92.3 fL (80.0-100.0); Mean Platelet Volume 7.5; Monocytes # (A) 0.5 k/uL (0-1.0); Monocytes % (A) 9 %; Neutrophils # (A) 4.2 k/uL (1.3-7.7); Neutrophils % (A) 73 %; Platelet Count 151 k/uL (150-450); RBC 3.14 m/uL (3.80-5.40); RDW 16.7 % (11.5-15.5); WBC 5.8 k/uL (3.8-10.6)
[2019-05-23] MEDS: CYANOCOBALAMIN 500 MCG TAB PO SCH (10:34)
[2019-05-23] MEDS: APIXABAN 5 MG TAB PO SCH ×2 (10:34→20:38)
[2019-05-23] MEDS: FAMOTIDINE 20 MG TAB PO SCH (10:35)
[2019-05-23] MEDS: MAGNESIUM OXIDE 400 MG TAB PO SCH (10:35)
[2019-05-23] MEDS: FERROUS SULFATE 325 MG TAB PO SCH ×2 (10:35→20:38)
[2019-05-23] MEDS: LISINOPRIL 5 MG TAB PO SCH (10:35)
[2019-05-23] MEDS: SENNOSIDES 8.6 MG TAB PO SCH ×2 (10:36→20:38)
[2019-05-23] MEDS: DIVALPROEX SPRINKLE 125 MG CAP.SPRINK PO SCH (10:36)
[2019-05-23] MEDS: SERTRALINE 50 MG TAB PO SCH (10:36)
--- NOTE | 2019-05-23 10:52 | XR ---
EXAMINATION TYPE: XR chest 1V portable DATE OF EXAM: 05/23/2019 COMPARISON: 05/20/2019 HISTORY: Shortness of breath TECHNIQUE: Single frontal view of the chest is obtained. FINDINGS: Rib deformities are noted and there is a approximate 5-10% left apical pneumothorax. Bilat eral consolidation and pleural effusion with interstitial pattern. Heart enlarged and stable. Atheros clerotic change aorta. Report called to the patient's nurse. IMPRESSION: 1. Small left apical pneumothorax measuring 5-10%. 2. Bilateral infiltrate and pleural effusion correlate for mild CHF.
[2019-05-23 12:08] LABS: Glucose,Whole Blood 162 mg/dL (75-99)
--- NOTE | 2019-05-23 12:17 | PN ---
PROGRESS NOTE The patient is seen for followup for acute kidney injury. Her renal function has improved. Creatinine is down from 2.5 to 1.28 today. The patient is currently not on any IV fluids. She is maintained on small dose of NICOLA inhibitors, which she is tolerating well. No Lasix on board as well. PHYSICAL EXAMINATION: On examination, blood pressure is 135/63, heart rate 63 per minute. She is afebrile. EXAMINATION OF THE HEART: S1, S2. EXAMINATION OF THE LUNGS: Bilateral breath sounds are heard. Abdomen is soft, nontender. Examination of the lower extremities shows no significant edema. LABS: Labs show hemoglobin 9.0, sodium 140, potassium 4.5, BUN 39, serum creatinine 1.28. ASSESSMENT: 1. Acute kidney injury, prerenal, improved with holding diuretics. Patient was also bradycardic. 2. Chronic kidney disease stage 3, baseline creatinine 1.7 secondary to nephrosclerosis. 3. Type 2 diabetes. 4. Bradycardia, medication related, currently improving. 5. Anemia of chronic disease. PLAN: Continue off of IV fluids. Continue with the NICOLA inhibitors and repeat labs in a.m.. MMODL / IJN: [id number] /
[2019-05-23 12:57] LABS: Iron Saturation 14.97 (12.00-45.00)
--- NOTE | 2019-05-23 14:34 | P.PN ---
Subjective Progress Note Date: 05/23/19 This is 78 years old female who was [facility] to her daughter's home recently continued to have weakness at home after she had some improvement at the penitentiary patient felt weak and lethargic and went to [facility] where she was bradycardic in the low 40s and patient was sent to [facility] for further evaluation by cardiology. EKG showed bradycardia seems to be sinus without significant AV block patient was found to have acute kidney injury and slight elevation in troponin and admitted for further evaluation. Patient daughter and grandson at the bedside who stated that she's been declining slowly and gradually but patient is alert and oriented 3 able to provide detailed information and stated that she was taking her Lasix everyday along with her cardiac medication including Lopressor and amiodarone and Lessina Prell. Patient on admission stated that her symptoms improved after stopping medication and has more energy today. Patient denied recent fever chills nausea vomiting abdominal pain dizziness lightheadedness or blurry vision stated that oral intake has been minimum since patient was sent to a penitentiary. Patient is denying tobacco alcohol or drug abuse 05/22: Patient stated that she is at least 50% improved since admission denying any dizziness lightheadedness or blurry vision. Patient is tolerating diet without difficulty and stated that fluid infusion made her feel much better 05/23: Patient denies any new complaints. She had a chest x-ray this morning that showed a 10% left pneumothorax and consult added for Dr. Kelley. Cardiology has recommended avoiding amiodarone, continue eliquis 5 g twice daily and stop midodrine. Objective - Vital Signs Vital signs: Vital Signs Temp 98.9 F 05/23/19 03:47 Pulse 92 05/23/19 08:07 Resp 20 05/23/19 03:49 BP 135/63 05/23/19 03:47 Pulse Ox 98 05/23/19 03:47 Intake & Output 05/22/19 05/23/19 05/23/19 18:59 06:59 18:59 Intake Total 220 800 120 Output Total 300 501 Balance -80 800 -381 Weight 57.9 kg Intake: Oral 220 800 120 Output: Urine 300 500 Stool 1 Other: Voiding Method Bedside Commode Bedside Commode # Voids 1 2 # Bowel Movements 1 - Exam Review Of Systems: Constitutional: No fever, no chills, no night sweats. No weight change. Reports weakness EENT: No headache. No blurred vision or double vision, no loss of vision. No loss of Hearing, no ringing in the ears, no dizziness. No nasal drainage or congestion. No epistaxis. No sore throat. Lungs: No shortness of breath, cough, no sputum production. No wheezing. Cardiovascular: No chest pain, no lower extremity edema. No palpitations. No paroxysmal nocturnal dyspnea. No orthopnea. No lightheadedness or dizziness. No syncopal episodes. Abdominal: No abdominal pain. No nausea, vomiting. No diarrhea. No constipation. No bloody or tarry stools.. No loss of appetite. Genitourinary: No dysuria, increased frequency, urgency. No urinary retention. Musculoskeletal: No myalgias. No muscle weakness, no gait dysfunction, no frequent falls. No back pain. No neck pain. Integumentary: No wounds, no lesions. No rash or pruritus. No unusual bruising. No change in hair or nails. Neurologic: No aphasia. No facial droop. No change in mentation. No head injury. No headache. No paralysis. No paresthesia. Psychiatric: No depression. No anxiety. No mood swings. Endocrine: No abnormal blood sugars. No weight change. No excessive sweating or thirst. No cold intolerance. Gen: This is a 78-year-old female. She is resting in bed appears to be comfortable and in no acute distress. No respiratory distress noted. HEENT: Head is atraumatic, normocephalic. Pupils equal, round. Sclerae is anicteric. NECK: Supple. No JVD. No lymphadenopathy. No thyromegaly. LUNGS: Clear to auscultation. No wheezes or rhonchi. No intercostal retractions. HEART: Regular rate and rhythm. No murmur. ABDOMEN: Soft. Bowel sounds are present. No masses. No tenderness. EXTREMITIES: No pedal edema. No calf tenderness. NEUROLOGICAL: Patient is awake, alert and oriented x3. Cranial nerves 2 through 12 are grossly intact. - Labs CBC & Chem 7: 05/23/19 06:46 05/23/19 06:46 Labs: Abnormal Lab Results - Last 24 Hours (Table) 05/22/19 05/22/19 05/23/19 Range/Units 16:53 20:24 06:34 RBC (3.80-5.40) m/uL Hgb (11.4-16.0) gm/dL Hct (34.0-46.0) % RDW (11.5-15.5) % Lymphocytes # (1.0-4.8) k/uL Chloride (98-107) mmol/L BUN (7-17) mg/dL Creatinine (0.52-1.04) mg/dL Glucose (74-99) mg/dL POC Glucose (mg/dL) 169 H 168 H 112 H (75-99) mg/dL 05/23/19 05/23/19 05/23/19 Range/Units 06:46 06:46 11:46 RBC 3.14 L (3.80-5.40) m/uL Hgb 9.0 L (11.4-16.0) gm/dL Hct 29.0 L (34.0-46.0) % RDW 16.7 H (11.5-15.5) % Lymphocytes # 0.8 L (1.0-4.8) k/uL Chloride 109 H (98-107) mmol/L BUN 39 H (7-17) mg/dL Creatinine 1.28 H (0.52-1.04) mg/dL Glucose 104 H (74-99) mg/dL POC Glucose (mg/dL) 162 H (75-99) mg/dL Assessment and Plan Plan: 1. Generalized weakness. 2. Acute kidney injury with chronic kidney disease stage III likely secondary to Lasix and dehydration. Patient is now off IV fluids. Continue NICOLA inhibitor and repeat lab work in the morning. Nephrology consult appreciated. 3. Bradycardia. Cardiology has recommended holding amiodarone, midodrine 4. History of atrial fibrillation. Continue eliquis 5 mg twice daily. 5. Debility and deconditioning. 6. Slight elevation in troponin likely related to acute kidney injury and demand mismatch ischemia. 7. Chronic hypoxic respiratory failure home oxygen dependent for the last 2 month. 8. Insomnia. 9. Polypharmacy. 10. Chronic nausea. 11. Generalized anxiety disorder and recurrent depression. 12. Diabetes mellitus type 2 insulin-dependent 13. 10% left pneumothorax. Consult with Dr. Kelley. 14. Hypertension. Lisinopril 5 mg daily. Discharge plan: To be determined Impression and plan of care have been directed as dictated by the signing ph ysician. Nubia Caruso nurse practitioner acting as scribe for signing physician.
--- NOTE | 2019-05-23 14:36 | P.PN ---
Subjective Progress Note Date: 05/23/19 This is a pleasant 78-year-old female seen and examined this morning, denies any dizziness or lightheadedness. Heart rate remaining in the 60s today. Blood pressure 134/60. White blood cell count 5.8, hemoglobin 9.0, platelet count 151. Sodium 140, potassium or 4.5, BUN 39 and creatinine 1.2. Objective - Vital Signs Vital signs: Vital Signs Temp 98.9 F 05/23/19 03:47 Pulse 92 05/23/19 08:07 Resp 20 05/23/19 03:49 BP 135/63 05/23/19 03:47 Pulse Ox 98 05/23/19 03:47 Intake & Output 05/22/19 05/23/19 05/23/19 18:59 06:59 18:59 Intake Total 220 800 240 Output Total 300 501 Balance -80 800 -261 Weight 57.9 kg Intake: Oral 220 800 240 Output: Urine 300 500 Stool 1 Other: Voiding Method Bedside Commode Bedside Commode # Voids 1 2 1 # Bowel Movements 1 - Exam PHYSICAL EXAMINATION: GENERAL: 78-year-old female in no acute distress at the time of my examination HEENT: Head is atraumatic, normocephalic. Pupils equal, round. Sclera anicteric. Conjunctiva are clear. Mucous membranes of the mouth are moist. Neck is supple. There is no elevated jugular venous pressure. No carotid brui t is heard. HEART EXAMINATION: Heart S1-S2 no murmur or gallop is heard CHEST EXAMINATION: Lungs reveal diminished air entry bilaterally. ABDOMEN: Soft, nontender. Bowel sounds are heard. No organomegaly noted. EXTREMITIES: 2+ peripheral pulses with no evidence of peripheral edema and no calf tenderness noted. NEUROLOGIC patient is awake, alert and oriented 3. . - Labs CBC & Chem 7: 05/23/19 06:46 05/23/19 06:46 Labs: Abnormal Lab Results - Last 24 Hours (Table) 05/22/19 05/22/19 05/23/19 Range/Units 16:53 20:24 06:34 RBC (3.80-5.40) m/uL Hgb (11.4-16.0) gm/dL Hct (34.0-46.0) % RDW (11.5-15.5) % Lymphocytes # (1.0-4.8) k/uL Chloride (98-107) mmol/L BUN (7-17) mg/dL Creatinine (0.52-1.04) mg/dL Glucose (74-99) mg/dL POC Glucose (mg/dL) 169 H 168 H 112 H (75-99) mg/dL 05/23/19 05/23/19 05/23/19 Range/Units 06:46 06:46 11:46 RBC 3.14 L (3.80-5.40) m/uL Hgb 9.0 L (11.4-16.0) gm/dL Hct 29.0 L (34.0-46.0) % RDW 16.7 H (11.5-15.5) % Lymphocytes # 0.8 L (1.0-4.8) k/uL Chloride 109 H (98-107) mmol/L BUN 39 H (7-17) mg/dL Creatinine 1.28 H (0.52-1.04) mg/dL Glucose 104 H (74-99) mg/dL POC Glucose (mg/dL) 162 H (75-99) mg/dL Assessment and Plan Plan: Assessment and plan #1 sinus bradycardia on admission #2 paroxysmal atrial fibrillation #3 sick sinus syndrome #4 hypertension Plan From cardiology's perspective, we'll continue current medications. If patient has paroxysms of atrial fibrillation she may require permanent pacemaker for tachybradycardia syndrome, at this pint pacemaker was not recommended. We will continue with current medications. DNP note has been reviewed, I agree with a documented findings and plan of care. Patient was seen and examined.
[2019-05-23 16:48] LABS: Glucose,Whole Blood 158 mg/dL (75-99)
--- NOTE | 2019-05-23 20:11 | CONS ---
CONSULTATION PULMONARY/CRITICAL CARE CONSULTATION: DATE OF CONSULTATION: 05/23/2019 This is a patient who apparently was transferred from [facility] for bradycardia and EKG changes. The patient was initially seen at [facility] for worsening generalized weakness. She was evaluated by the ER physicians there. She was apparently brought in to the emergency room by EMS from a halfway. At that time, she had profound weakness. She was also found to have bradycardia in the 40s and apparently was told by Cardiology that she might need a pacemaker. Anyway, she was also discovered to have a very low blood pressure at that time. We were consulted for a chest x-ray which showed a very small left-sided apical pneumothorax of about 8% to 10%. She did admit to falling. She maybe did fall on the left chest area. Interestingly, she denies any pain in the left chest area. I even palpated the left chest both anteriorly, laterally and posteriorly and she did not seem to have any issues of pain. Nonetheless, the small left apical pneumothorax could have developed or occurred when she fell on the left side. The patient was admitted here with bradycardia, weakness and a mildly elevated troponin level. Again, I was consulted for the left apical pneumothorax. Specifically, she denied any shortness of breath, difficulty breathing, coughing, wheezing, phlegm production, chest pain, chest discomfort or anything like that. HOME MEDICATIONS: Her home medications included: 1. Vitamin B12. 2. Pravachol. 3. Xanax. 4. Tylenol. 5. Ventolin updrafts. 6. Cordarone. 7. Eliquis. 8. Pulmicort updrafts. 9. Depakote. 10.Pepcid. 11.Iron sulfate. 12.Lasix. 13.Insulin. 14.Levothyroxine. 15.Lisinopril. 16.Magnesium oxide. 17.Melatonin. 18.Lopressor. 19.Midodrine. 20.Fish oil. 21.Senna. 22.Zoloft. 23.Carafate. ALLERGIES: ALLERGIES include: 1. DOXYCYCLINE. 2. IVP DYE. PAST MEDICAL HISTORY: Her past medical history is apparently positive for: 1. CHF. 2. CVA. 3. Diabetes. 4. Hypertension. 5. TIA. 6. Irregular heartbeat. 7. Anemia. 8. Some other minor medical problems. SURGICAL HISTORY: Surgical history includes: 1. Left knee arthroscopy. 2. Pilonidal cyst removal. 3. Some other minor procedures. SOCIAL HISTORY: Positive for never smoking. She denies any alcohol use or illicit drug use. 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 FAMILY HISTORY: Positive for CHF in her father, heart failure in her mother, breast cancer in her sister and a son with hypertension. The rest of the history is not too clear. REVIEW OF SYSTEMS: CONSTITUTIONAL: Weakness. NEUROLOGIC: Negative. HEENT: Negative. CARDIOVASCULAR: Bradycardia. PULMONARY: Negative. GI: Negative. : Negative. RHEUMATOLOGIC: Negative. IMMUNOLOGIC: Negative. ENDOCRINOLOGIC: Negative. DERMATOLOGIC: Negative. PHYSICAL EXAMINATION: VITAL SIGNS: Current vital signs are reviewed. Temperature is 98.9, heart rate 90, respiratory rate 20, blood pressure 135/63, mean 87, two-liter saturation 98%. GENERAL: Appears in no acute distress. HEENT EXAMINATION: Grossly unremarkable. Mucous membranes are moist. Nasal oxygen noted. NECK: Supple. Full range of motion. No adenopathy or thyromegaly. Neck veins are flat. CARDIOVASCULAR: Cardiovascular examination reveals regular rhythm and rate. S1, S2 normal. No S3, S4 or murmur. Heart rate about 60 beats per minute. LUNGS: Lungs reveal clear breath sounds. No wheezes or rhonchi. No crackles. Breath sounds equal bilaterally. ABDOMEN: Soft. Bowel sounds are heard. EXTREMITIES: Intact. No cyanosis, clubbing or edema. SKIN: Without rash. NEUROLOGIC: Neurologic examination is brief but nonfocal. A chest x-ray shows a very tiny left apical pneumothorax. LABS: Reviewed. White count 5.8, hemoglobin 9, hematocrit 29.0, platelet count 151,000. Sodium and potassium were normal. Chloride 109. CO2 23. Anion gap is 8. BUN and creatinine were 39 and 1.28. Troponins were 0.045, 0.037. TSH is 0.914. Again, the chest x-ray shows a very small left apical pneumothorax. There may be some mild changes of CHF. Chest x-ray on admission showed a heart rate of 45 and rhythm consistent with sinus bradycardia. Medications are reviewed. ASSESSMENT: 1. Small left apical pneumothorax, of unclear significance. Not sure how it developed. Nothing to do at this point with it other than observe it with serial chest x-rays. 2. Bradycardia and weakness, currently being evaluated by Cardiology. 3. History of hyperlipidemia. 4. History of hypothyroidism. 5. History of hypertension. 6. History of cerebrovascular accident. 7. History of heart failure. 8. History of diabetes mellitus. 9. History of irregular heartbeat. 10.History of anemia. PLAN: I would repeat a portable daily chest x-ray just to make sure the patient's pneumothorax does not worsen. She clinically is very stable. No intervention is needed at this time. Will continue to see her as needed. MMODL / IJN: [id number] /
[2019-05-23] MEDS: PRAVASTATIN SODIUM 20 MG TAB PO SCH (20:38)
[2019-05-23] MEDS: MELATONIN 5 MG TABLET PO SCH (20:38)
[2019-05-23 20:40] LABS: Glucose,Whole Blood 206 mg/dL (75-99)
[2019-05-23] MEDS: INSULIN DETEMIR (LEVEMIR) 100 UNIT/ML SYR SQ SCH (20:48)
[2019-05-24] MEDS: SUCRALFATE 1 GM TAB PO SCH ×4 (06:13→20:38)
[2019-05-24] MEDS: LEVOTHYROXINE 112 MCG TAB PO SCH (06:13)
[2019-05-24 06:17] LABS: Glucose,Whole Blood 113 mg/dL (75-99)
[2019-05-24] MEDS: INSULIN ASPART (NovoLOG) 100 UNIT/ML VIAL SQ SCH ×4 (06:17→21:38)
[2019-05-24 06:43] LABS: Anisocytosis Slight; Basophils # (A) 0.1 k/uL (0-0.2); Basophils % (A) 1 %; Eosinophils # (A) 0.3 k/uL (0-0.7); Eosinophils % (A) 3 %; HGB 10.2 gm/dL (11.4-16.0); Hypochromasia Slight; Lymphocytes # (A) 1.5 k/uL (1.0-4.8); Lymphocytes % (A) 17 %; MCH 28.6 pg (25.0-35.0); MCV 92.2 fL (80.0-100.0); Mean Platelet Volume 7.1; Monocytes # (A) 0.8 k/uL (0-1.0); Monocytes % (A) 8 %; Neutrophils # (A) 6.3 k/uL (1.3-7.7); Neutrophils % (A) 69 %; Platelet Count 178 k/uL (150-450); RBC 3.58 m/uL (3.80-5.40); RDW 17.5 % (11.5-15.5); WBC 9.1 k/uL (3.8-10.6)
[2019-05-24 07:07] LABS: Calcium 10.4 mg/dL (8.4-10.2); Potassium 4.6 mmol/L (3.5-5.1)
[2019-05-24] MEDS: BUDESONIDE 1 MG/2 ML NEBU INHALATION SCH ×2 (07:34→20:03)
[2019-05-24] MEDS: ALBUTEROL NEBULIZED 2.5 MG/3 ML INHALATION PRN ×2 (07:34→20:03)
[2019-05-24] MEDS: FERROUS SULFATE 325 MG TAB PO SCH ×2 (08:25→20:38)
[2019-05-24] MEDS: FAMOTIDINE 20 MG TAB PO SCH (08:25)
[2019-05-24] MEDS: APIXABAN 5 MG TAB PO SCH ×2 (08:25→20:38)
[2019-05-24] MEDS: CYANOCOBALAMIN 500 MCG TAB PO SCH (08:25)
[2019-05-24] MEDS: SERTRALINE 50 MG TAB PO SCH (08:26)
[2019-05-24] MEDS: LISINOPRIL 5 MG TAB PO SCH (08:26)
[2019-05-24] MEDS: MAGNESIUM OXIDE 400 MG TAB PO SCH (08:26)
[2019-05-24] MEDS: SENNOSIDES 8.6 MG TAB PO SCH ×2 (08:26→20:40)
[2019-05-24] MEDS: DIVALPROEX SPRINKLE 125 MG CAP.SPRINK PO SCH (08:27)
--- NOTE | 2019-05-24 11:07 | XR ---
EXAMINATION TYPE: XR chest 1V portable DATE OF EXAM: 05/24/2019 COMPARISON: Prior chest x-ray 05/23/2019 HISTORY: Hypotension, pneumothorax TECHNIQUE: Single frontal view of the chest is obtained. FINDINGS: Left-sided pneumothorax has decreased somewhat in size. Anterior pleural line is also susp ected medially along the mediastinum. Bibasilar increased density persists. Heart size is likely stab le, rotation may accentuate the size appearance. Aorta is dense. IMPRESSION: Pneumothorax has improved somewhat in the interval. There are likely basilar effusions a nd associated atelectasis, correlate to exclude pneumonia.
[2019-05-24 11:54] LABS: Glucose,Whole Blood 196 mg/dL (75-99)
[2019-05-24] MEDS ORDERED: FUROSEMIDE 10 MG/ML 4 ML VIAL IV STA (12:14)
--- NOTE | 2019-05-24 12:14 | P.PN ---
Subjective Progress Note Date: 05/24/19 Principal diagnosis: Small left apical pneumothorax. This is a very pleasant 78-year-old female patient who was transferred here from [facility] for bradycardia and EKG changes along with weakness. She was bradycardic in the 40s. Cardiology is following her. She did have a chest x-ray that revealed a very small left-sided apical pneumothorax about 8- 10% and we're consulted for the same. She is seen again today in follow-up on the selective care unit. She is currently awake and alert in no acute distress. She is maintaining good O2 saturations in the high 90s on 2 L/m per nasal cannula. She's afebrile. Hemodynamically stable. Based chest x-ray shows improvement in the small left-sided apical pneumothorax. Basilar densities persist. White count 9.1. Hemoglobin 10.2. Creatinine 1.30. Objective - Vital Signs Vital signs: Vital Signs Temp 98.7 F 05/24/19 08:10 Pulse 83 05/24/19 08:10 Resp 16 05/24/19 08:10 BP 122/57 05/24/19 08:10 Pulse Ox 98 05/24/19 08:10 Intake & Output 05/23/19 05/24/19 05/24/19 18:59 06:59 18:59 Intake Total 480 800 120 Output Total 504 1 Balance -24 800 119 Weight 57.6 kg Intake: Oral 480 800 120 Output: Urine 500 Stool 4 1 Other: Voiding Method Bedside Commode Bedside Commode Bedside Commode # Voids 1 3 # Bowel Movements 0 - Exam GENERAL EXAM: Alert, comfortable in no apparent distress. On 2 L nasal cannula. HEAD: Normocephalic. EYES: Normal reaction of pupils, equal size. NOSE: Clear with pink turbinates. THROAT: No erythema or exudates. NECK: No masses, no JVD. CHEST: No chest wall deformity. LUNGS: Equal air entry with faint crackles in the posterior bases. CVS: S1 and S2 normal with no audible murmur, regular rhythm. ABDOMEN: No hepatosplenomegaly, normal bowel sounds, no guarding or rigidity. SPINE: No scoliosis or deformity SKIN: No rashes CENTRAL NERVOUS SYSTEM: No focal deficits, tone is normal in all 4 extremities. EXTREMITIES: There is no peripheral edema. No clubbing, no cyanosis. Peripheral pulses are intact. - Labs CBC & Chem 7: 05/24/19 06:15 05/24/19 06:15 Labs: Abnormal Lab Results - Last 24 Hours (Table) 05/23/19 05/23/19 05/23/19 Range/Units 11:46 16:40 20:39 RBC (3.80-5.40) m/uL Hgb (11.4-16.0) gm/dL Hct (34.0-46.0) % RDW (11.5-15.5) % BUN (7-17) mg/dL Creatinine (0.52-1.04) mg/dL Glucose (74-99) mg/dL POC Glucose (mg/dL) 162 H 158 H 206 H (75-99) mg/dL Calcium (8.4-10.2) mg/dL 05/24/19 05/24/19 05/24/19 Range/Units 06:15 06:15 06:16 RBC 3.58 L (3.80-5.40) m/uL Hgb 10.2 L (11.4-16.0) gm/dL Hct 33.0 L (34.0-46.0) % RDW 17.5 H (11.5-15.5) % BUN 31 H (7-17) mg/dL Creatinine 1.30 H (0.52-1.04) mg/dL Glucose 101 H (74-99) mg/dL POC Glucose (mg/dL) 113 H (75-99) mg/dL Calcium 10.4 H (8.4-10.2) mg/dL 05/24/19 Range/Units 11:41 RBC (3.80-5.40) m/uL Hgb (11.4-16.0) gm/dL Hct (34.0-46.0) % RDW (11.5-15.5) % BUN (7-17) mg/dL Creatinine (0.52-1.04) mg/dL Glucose (74-99) mg/dL POC Glucose (mg/dL) 196 H (75-99) mg/dL Calcium (8.4-10.2) mg/dL Assessment and Plan Assessment: Impression: #1 Bradycardia and weakness. #2 Small left apical pneumothorax, improved on today's chest x-ray was some bilateral atelectasis/fluid overload #3 Hypertension. #4 Hyperlipidemia. #5 Hypothyroidism. #6 History of CVA. #7 History of congestive heart failure. #8 Diabetes mellitus. #9 Anemia. Plan: The patient was seen and evaluated by Dr. Kelley. Chest x-ray and labs reviewed. Possibly some fluid volume overload. Improvement in the small left apical pneumothorax. We'll continue with observation and follow-up chest x-rays. We'll continue to follow and make further recommendations based on her clinical status. I, the cosigning physician, performed a history & physical examination of the patient. Lungs sounds with faint crackles in the posterior bases. Maintaining good O2 saturations in the 90s on 2 L/m per nasal cannula. I discussed the as sessment and plan of care with my nurse practitioner, Nataly Reveles. I attest to the above note as dictated by her.
--- NOTE | 2019-05-24 13:15 | P.PN ---
Subjective Patient is seen in follow-up for acute kidney injury on chronic kidney disease. Patient has chronic kidney disease stage III with baseline creatinine in the range of 1.3-2 outpatient. GFR is currently at baseline. Heart rate is stable. Denies chest pain or shortness of breath. Urine output is good. Vital signs are stable. General: The patient appeared well nourished and normally developed. HEENT: Head exam is unremarkable. Neck is without jugular venous distension. LUNGS: Lungs are clear to auscultation and percussion. Breath sounds decreased. HEART: Rate and Rhythm are regular. First and second heart sounds normal. No murmurs, rubs or gallops. ABDOMEN: Abdominal exam reveals normal bowel sounds. Non-tender and non- distended. No evidence of peritonitis. EXTREMITITES: No clubbing, cyanosis, or edema. Objective - Vital Signs Vital signs: Vital Signs Temp 98.8 F 05/24/19 12:05 Pulse 75 05/24/19 12:05 Resp 16 05/24/19 12:05 BP 117/63 05/24/19 12:05 Pulse Ox 95 05/24/19 12:05 Intake & Output 05/23/19 05/24/19 05/24/19 18:59 06:59 18:59 Intake Total 480 800 360 Output Total 504 2 Balance -24 800 358 Weight 57.6 kg Intake: Oral 480 800 360 Output: Urine 500 Stool 4 2 Other: Voiding Method Bedside Commode Bedside Commode Bedside Commode # Voids 1 3 1 # Bowel Movements 0 1 - Labs CBC & Chem 7: 05/24/19 06:15 05/24/19 06:15 Labs: Abnormal Lab Results - Last 24 Hours (Table) 05/23/19 05/23/19 05/24/19 Range/Units 16:40 20:39 06:15 RBC 3.58 L (3.80-5.40) m/uL Hgb 10.2 L (11.4-16.0) gm/dL Hct 33.0 L (34.0-46.0) % RDW 17.5 H (11.5-15.5) % BUN (7-17) mg/dL Creatinine (0.52-1.04) mg/dL Glucose (74-99) mg/dL POC Glucose (mg/dL) 158 H 206 H (75-99) mg/dL Calcium (8.4-10.2) mg/dL 05/24/19 05/24/19 05/24/19 Range/Units 06:15 06:16 11:41 RBC (3.80-5.40) m/uL Hgb (11.4-16.0) gm/dL Hct (34.0-46.0) % RDW (11.5-15.5) % BUN 31 H (7-17) mg/dL Creatinine 1.30 H (0.52-1.04) mg/dL Glucose 101 H (74-99) mg/dL POC Glucose (mg/dL) 113 H 196 H (75-99) mg/dL Calcium 10.4 H (8.4-10.2) mg/dL Assessment and Plan Plan: Assessment: 1. Acute kidney injury mostly prerenal secondary to bradycardia. Resolved. 2. Chronic kidney disease stage III with baseline creatinine in the range of 1.3-2 outpatient. Etiology is diabetic kidney disease and nephrosclerosis. 3. 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 Outpatient workup has been negative. She could not afford Sensipar. She is maintained on Lasix outpatient. 4. Bradycardia tench related to medications. Resolved. Cardiology following. 5. Diabetes mellitus. 6. Hypertension with chronic kidney disease. Controlled. Plan: Patient received Lasix 40 mg IV this morning. Can resume 20 mg orally twice daily Lasix upon discharge. Follow-up outpatient in the next 1-2 weeks.
--- NOTE | 2019-05-24 14:58 | P.PN ---
Subjective Progress Note Date: 05/24/19 This is a pleasant 78-year-old female seen and examined this morning, denies any dizziness or lightheadedness. Heart rate remaining in the 60s today. Blood pressure 134/60. White blood cell count 5.8, hemoglobin 9.0, platelet count 151. Sodium 140, potassium or 4.5, BUN 39 and creatinine 1.2. 05/24/2019 She was seen and examined this morning sitting up in the chair at bedside, she had just been up ambulating with physical therapy and her heart rate was up in the 1 teens low 120 range. In the afternoon she was reevaluated her heart rate at that time was in the 80 range. She has had no documented orthostatic. Her blood pressure 150/70, 98% on 2 L of oxygen. White blood cell count 7.7, hemoglobin 9.2, platelet count 216, sodium 140, potassium 4.5, BUN 22 and creatinine 0.9. Objective - Vital Signs Vital signs: Vital Signs Temp 98.8 F 05/24/19 12:05 Pulse 75 05/24/19 12:05 Resp 16 05/24/19 12:05 BP 117/63 05/24/19 12:05 Pulse Ox 95 05/24/19 12:05 Intake & Output 05/23/19 05/24/19 05/24/19 18:59 06:59 18:59 Intake Total 480 800 360 Output Total 504 2 Balance -24 800 358 Weight 57.6 kg Intake: Oral 480 800 360 Output: Urine 500 Stool 4 2 Other: Voiding Method Bedside Commode Bedside Commode Bedside Commode # Voids 1 3 1 # Bowel Movements 0 1 - Exam PHYSICAL EXAMINATION: GENERAL: 78-year-old female in no acute distress at the time of my examination HEENT: Head is atraumatic, normocephalic. Pupils equal, round. Sclera anicteric. Conjunctiva are clear. Mucous membranes of the mouth are moist. Neck is supple. There is no elevated jugular venous pressure. No carotid bruit is heard. HEART EXAMINATION: Heart S1-S2 no murmur or gallop is heard CHEST EXAMINATION: Lungs reveal diminished air entry bilaterally. ABDOMEN: Soft, nontender. Bowel sounds are heard. No organomegaly noted. EXTREMITIES: 2+ peripheral pulses with no evidence of peripheral edema and no calf tenderness noted. NEUROLOGIC patient is awake, alert and oriented 3. . - Labs CBC & Chem 7: 05/24/19 06:15 05/24/19 06:15 Labs: Abnormal Lab Results - Last 24 Hours (Table) 05/23/19 05/23/19 05/24/19 Range/Units 16:40 20:39 06:15 RBC 3.58 L (3.80-5.40) m/uL Hgb 10.2 L (11.4-16.0) gm/dL Hct 33.0 L (34.0-46.0) % RDW 17.5 H (11.5-15.5) % BUN (7-17) mg/dL Creatinine (0.52-1.04) mg/dL Glucose (74-99) mg/dL POC Glucose (mg/dL) 158 H 206 H (75-99) mg/dL Calcium (8.4-10.2) mg/dL 05/24/19 05/24/19 05/24/19 Range/Units 06:15 06:16 11:41 RBC (3.80-5.40) m/uL Hgb (11.4-16.0) gm/dL Hct (34.0-46.0) % RDW (11.5-15.5) % BUN 31 H (7-17) mg/dL Creatinine 1.30 H (0.52-1.04) mg/dL Glucose 101 H (74-99) mg/dL POC Glucose (mg/dL) 113 H 196 H (75-99) mg/dL Calcium 10.4 H (8.4-10.2) mg/dL Assessment and Plan Plan: Assessment and plan #1 sinus bradycardia on admission #2 paroxysmal atrial fibrillation #3 sick sinus syndrome #4 hypertension Plan From cardiology's perspective, we'll continue current medications. Repeat EKG this afternoon. DNP note has been reviewed, I agree with a documented findings and plan of care. Patient was seen and examined.
--- NOTE | 2019-05-24 15:18 | P.PN ---
Subjective Progress Note Date: 05/24/19 This is 78 years old female who was discharged from group home to her daughter's home recently continued to have weakness at home after she had some improvement at the group home patient felt weak and lethargic and went to [facility] where she was bradycardic in the low 40s and patient was sent to [facility] for further evaluation by cardiology. EKG showed bradycardia seems to be sinus without significant AV block patient was found to have acute kidney injury and slight elevation in troponin and admitted for further evaluation. Patient daughter and grandson at the bedside who stated that she's been declining slowly and gradually but patient is alert and oriented 3 able to provide detailed information and stated that she was taking her Lasix everyday along with her cardiac medication including Lopressor and amiodarone and Lessina Prell. Patient on admission stated that her symptoms improved after stopping medication and has more energy today. Patient denied recent fever chills nausea vomiting abdominal pain dizziness lightheadedness or blurry vision stated that oral intake has been minimum since patient was sent to a group home. Patient is denying tobacco alcohol or drug abuse 05/22: Patient stated that she is at least 50% improved since admission denying any dizziness lightheadedness or blurry vision. Patient is tolerating diet without difficulty and stated that fluid infusion made her feel much better 05/23: Patient denies any new complaints. She had a chest x-ray this morning that showed a 10% left pneumothorax and consult added for Dr. Kelley. Cardiology has recommended avoiding amiodarone, continue eliquis 5 g twice daily and stop midodrine. 05/24: Repeat chest x-ray shows pneumothorax has improved somewhat in the interval. Likely basilar effusions and associated atelectasis. Correlate to exclude pneumonia. Pulmonary medicine has ordered 1 dose of IV Lasix [address] Bowen is recommending continuing Lasix 20 mg orally twice daily upon discharge. With follow-up in one to 2 weeks. Cardiology is planning to continue current medications and repeat EKG this afternoon. Repeat lab work reveals BUN of 31, creatinine 1.3, hemoglobin 10.2. Capillary blood glucose running between 113 and 206. Calcium 10.4. Physical therapy has recommended either home with homecare or subacute rehab. Case management has made arrangements for [facility] care. Objective - Vital Signs Vital signs: Vital Signs Temp 98.8 F 05/24/19 12:05 Pulse 75 05/24/19 12:05 Resp 16 05/24/19 12:05 BP 117/63 05/24/19 12:05 Pulse Ox 95 05/24/19 12:05 Intake & Output 05/23/19 05/24/19 05/24/19 18:59 06:59 18:59 Intake Total 480 800 360 Output Total 504 2 Balance -24 800 358 Weight 57.6 kg Intake: Oral 480 800 360 Output: Urine 500 Stool 4 2 Other: Voiding Method Bedside Commode Bedside Commode Bedside Commode # Voids 1 3 1 # Bowel Movements 0 1 - Exam Review Of Systems: Constitutional: No fever, no chills, no night sweats. No weight change. Reports weakness EENT: No headache. No blurred vision or double vision, no loss of vision. No loss of Hearing, no ringing in the ears, no dizziness. No nasal drainage or congestion. No epistaxis. No sore throat. Lungs: No shortness of breath, cough, no sputum production. No wheezing. Cardiovascular: No chest pain, no lower extremity edema. No palpitations. No paroxysmal nocturnal dyspnea. No orthopnea. No lightheadedness or dizziness. No syncopal episodes. Abdominal: No abdominal pain. No nausea, vomiting. No diarrhea. No constipation. No bloody or tarry stools.. No loss of appetite. Genitourinary: No dysuria, increased frequency, urgency. No urinary retention. Musculoskeletal: No myalgias. No muscle weakness, no gait dysfunction, no frequent falls. No back pain. Integumentary: No wounds, no lesions. No rash or pruritus. No unusual bruising. No change in hair or nails. Neurologic: No aphasia. No facial droop. No change in mentation. No head injury. No headache. No paralysis. No paresthesia. Psychiatric: No depression. No anxiety. Endocrine: No abnormal blood sugars. No weight change. No excessive sweating or thirst. No cold intolerance. Gen: This is a 78-year-old female. She is resting in chair appears to be comfortable and in no acute distress. HEENT: Head is atraumatic, normocephalic. Pupils equal, round. Sclerae is anicteric. NECK: Supple. No JVD. No lymphadenopathy. No thyromegaly. LUNGS: Clear to auscultation. No wheezes or rhonchi. No intercostal retractions. HEART: Regular rate and rhythm. No murmur. ABDOMEN: Soft. Bowel sounds are present. No masses. No tenderness. EXTREMITIES: No pedal edema. No calf tenderness. NEUROLOGICAL: Patient is awake, alert and oriented x3. Cranial nerves 2 through 12 are grossly intact. - Labs CBC & Chem 7: 05/24/19 06:15 05/24/19 06:15 Labs: Abnormal Lab Results - Last 24 Hours (Table) 05/23/19 05/23/19 05/24/19 Range/Units 16:40 20:39 06:15 RBC 3.58 L (3.80-5.40) m/uL Hgb 10.2 L (11.4-16.0) gm/dL Hct 33.0 L (34.0-46.0) % RDW 17.5 H (11.5-15.5) % BUN (7-17) mg/dL Creatinine (0.52-1.04) mg/dL Glucose (74-99) mg/dL POC Glucose (mg/dL) 158 H 206 H (75-99) mg/dL Calcium (8.4-10.2) mg/dL 05/24/19 05/24/19 05/24/19 Range/Units 06:15 06:16 11:41 RBC (3.80-5.40) m/uL Hgb (11.4-16.0) gm/dL Hct (34.0-46.0) % RDW (11.5-15.5) % BUN 31 H (7-17) mg/dL Creatinine 1.30 H (0.52-1.04) mg/dL Glucose 101 H (74-99) mg/dL POC Glucose (mg/dL) 113 H 196 H (75-99) mg/dL Calcium 10.4 H (8.4-10.2) mg/dL Assessment and Plan Plan: 1. Generalized weakness. 2. Acute kidney injury with chronic kidney disease stage III likely secondary to Lasix and dehydration. Patient is now off IV fluids. Continue NICOLA inhibitor and repeat lab work in the morning. Nephrology consult appreciated. 3. Bradycardia. Cardiology has recommended holding amiodarone, midodrine. Cardiology consult appreciated. 4. History of atrial fibrillation. Continue eliquis 5 mg twice daily. 5. Debility and deconditioning. 6. Slight elevation in troponin likely related to acute kidney injury and demand mismatch ischemia. 7. Chronic hypoxic respiratory failure home oxygen dependent for the last 2 month. 8. Insomnia. 9. Polypharmacy. 10. Chronic nausea. 11. Generalized anxiety disorder and recurrent depression. 12. Diabetes mellitus type 2 insulin-dependent 13. 10% left pneumothorax. Consult with Dr. Kelley. 14. Hypertension. Lisinopril 5 mg daily. 15. Chronic hypercalcemia. Continue Lasix 20 mg orally twice daily per Dr. Bowen. Discharge plan: Home tomorrow with [facility] Impression and plan of care have been directed as dictated by the signing physician. Nubia Caruso nurse practitioner acting as scribe for signing physician.
[2019-05-24 16:48] LABS: Glucose,Whole Blood 168 mg/dL (75-99)
[2019-05-24] MEDS: MELATONIN 5 MG TABLET PO SCH (20:38)
[2019-05-24] MEDS: PRAVASTATIN SODIUM 20 MG TAB PO SCH (20:38)
[2019-05-24 21:37] LABS: Glucose,Whole Blood 157 mg/dL (75-99)
[2019-05-24] MEDS: INSULIN DETEMIR (LEVEMIR) 100 UNIT/ML SYR SQ SCH (21:38)
[2019-05-25] MEDS: LEVOTHYROXINE 112 MCG TAB PO SCH (06:15)
[2019-05-25] MEDS: SUCRALFATE 1 GM TAB PO SCH ×3 (06:54→15:49)
[2019-05-25 06:59] LABS: Glucose,Whole Blood 107 mg/dL (75-99)
[2019-05-25] MEDS: INSULIN ASPART (NovoLOG) 100 UNIT/ML VIAL SQ SCH ×2 (07:00→12:08)
[2019-05-25 07:51] LABS: Calcium 9.9 mg/dL (8.4-10.2); Magnesium 1.9 mg/dL (1.6-2.3); Potassium 4.8 mmol/L (3.5-5.1)
[2019-05-25] MEDS: BUDESONIDE 1 MG/2 ML NEBU INHALATION SCH (07:58)
[2019-05-25 08:07] LABS: Anisocytosis Slight; Basophils % (A) 1 %; Eosinophils # (A) 0.3 k/uL (0-0.7); Eosinophils % (A) 5 %; HCT 27.9 % (34.0-46.0); Hypochromasia Slight; Lymphocytes % (A) 16 %; MCH 28.9 pg (25.0-35.0); MCHC 31.1 g/dL (31.0-37.0); MCV 92.7 fL (80.0-100.0); Mean Platelet Volume 7.4; Monocytes # (A) 0.5 k/uL (0-1.0); Monocytes % (A) 8 %; Neutrophils # (A) 4.1 k/uL (1.3-7.7); Neutrophils % (A) 68 %; Platelet Count 148 k/uL (150-450); RBC 3.01 m/uL (3.80-5.40); RDW 17.5 % (11.5-15.5); WBC 6.1 k/uL (3.8-10.6)
[2019-05-25 08:17] LABS: HGB 8.7 gm/dL (11.4-16.0)
[2019-05-25] MEDS: MAGNESIUM OXIDE 400 MG TAB PO SCH (09:23)
[2019-05-25] MEDS: SERTRALINE 50 MG TAB PO SCH (09:23)
[2019-05-25] MEDS: LISINOPRIL 5 MG TAB PO SCH (09:23)
[2019-05-25] MEDS: FAMOTIDINE 20 MG TAB PO SCH (09:23)
[2019-05-25] MEDS: DIVALPROEX SPRINKLE 125 MG CAP.SPRINK PO SCH (09:23)
[2019-05-25] MEDS: APIXABAN 5 MG TAB PO SCH (09:23)
[2019-05-25] MEDS: SENNOSIDES 8.6 MG TAB PO SCH (09:23)
[2019-05-25] MEDS: CYANOCOBALAMIN 500 MCG TAB PO SCH (09:23)
[2019-05-25] MEDS: FERROUS SULFATE 325 MG TAB PO SCH (09:23)
[2019-05-25 10:59] VITALS: RESP 18
[2019-05-25 11:57] LABS: Glucose,Whole Blood 158 mg/dL (75-99)
[2019-05-25 12:54] VITALS: BP 136/60; PULSE 65; TEMP 98.1
--- NOTE | 2019-05-25 13:48 | P.PN ---
Subjective Patient is seen in follow-up for acute kidney injury on chronic kidney disease. Patient has chronic kidney disease stage III with baseline creatinine in the range of 1.3-2 outpatient. GFR is currently at baseline. Heart rate is stable. Denies chest pain or shortness of breath. Urine output is good. Vital signs are stable. General: The patient appeared well nourished and normally developed. HEENT: Head exam is unremarkable. Neck is without jugular venous distension. LUNGS: Lungs are clear to auscultation and percussion. Breath sounds decreased. HEART: Rate and Rhythm are regular. First and second heart sounds normal. No murmurs, rubs or gallops. ABDOMEN: Abdominal exam reveals normal bowel sounds. Non-tender and non- distended. No evidence of peritonitis. EXTREMITITES: No clubbing, cyanosis, or edema. Objective - Vital Signs Vital signs: Vital Signs Temp 98.1 F 05/25/19 11:50 Pulse 65 05/25/19 11:50 Resp 18 05/25/19 11:50 BP 136/60 05/25/19 11:50 Pulse Ox 100 05/25/19 11:50 Intake & Output 05/24/19 05/25/19 05/25/19 18:59 06:59 18:59 Intake Total 600 800 480 Output Total 3 450 Balance 597 800 30 Weight 57.6 kg Intake: Oral 600 800 480 Output: Urine 450 Stool 3 Other: Voiding Method Bedside Commode Bedside Commode # Voids 2 2 1 # Bowel Movements 1 - Labs CBC & Chem 7: 05/25/19 06:39 05/25/19 06:39 Labs: Abnormal Lab Results - Last 24 Hours (Table) 05/24/19 05/24/19 05/25/19 Range/Units 16:45 21:35 06:39 RBC (3.80-5.40) m/uL Hgb (11.4-16.0) gm/dL Hct (34.0-46.0) % RDW (11.5-15.5) % Plt Count (150-450) k/uL BUN 38 H (7-17) mg/dL Creatinine 1.54 H (0.52-1.04) mg/dL Glucose 106 H (74-99) mg/dL POC Glucose (mg/dL) 168 H 157 H (75-99) mg/dL 05/25/19 05/25/19 05/25/19 Range/Units 06:39 06:58 11:55 RBC 3.01 L (3.80-5.40) m/uL Hgb 8.7 L D (11.4-16.0) gm/dL Hct 27.9 L (34.0-46.0) % RDW 17.5 H (11.5-15.5) % Plt Count 148 L (150-450) k/uL BUN (7-17) mg/dL Creatinine (0.52-1.04) mg/dL Glucose (74-99) mg/dL POC Glucose (mg/dL) 107 H 158 H (75-99) mg/dL Assessment and Plan Plan: Assessment: 1. Acute kidney injury mostly prerenal secondary to bradycardia. Resolved. 2. Chronic kidney disease stage III with baseline creatinine in the range of 1.3-2 outpatient. Etiology is diabetic kidney disease and nephrosclerosis. 3. 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 Outpatient workup has been negative. She could not afford Sensipar. She is maintained on Lasix outpatient. Better. 4. Bradycardia tench related to medications. Resolved. Cardiology following. 5. Diabetes mellitus. 6. Hypertension with chronic kidney disease. Controlled. Plan: Resume 20 mg orally twice daily Lasix. Follow-up outpatient in the next 1-2 weeks.
--- NOTE | 2019-05-25 13:57 | P.DS ---
Providers Date of admission: 05/20/19 19:45 Expected date of discharge: 05/25/19 Attending physician: Nadira Gallardo MD Consults: 05/20/19 19:46 Consult Physician Routine Consulting Provider: Zeny Caraballo Consult Reason/Comments: sugey Do you want consulting provider notified?: Yes 05/20/19 19:49 Consult Physician Routine Consulting Provider: Sánchez Rae Consult Reason/Comments: bradycardia, ekg changes Do you want consulting provider notified?: Yes 05/23/19 12:33 Consult Physician Routine Consulting Provider: Jose Kelley Consult Reason/Comments: small apical pneumo Do you want consulting provider notified?: Yes Primary care physician: [facility] Course: This is 78 years old female who was discharged from [facility] to her daughter's home recently continued to have weakness at home after she had some improvement at the [facility] patient felt weak and lethargic and went to [facility] where she was bradycardic in the low 40s and patient was sent to [facility] for further evaluation by cardiology. EKG showed bradycardia seems to be sinus without significant AV block patient was found to have acute kidney injury and slight elevation in troponin and admitted for further evaluation. Patient daughter and grandson at the bedside who stated that she's been declining slowly and gradually but patient is alert and oriented 3 able to provide detailed information and stated that she was taking her Lasix everyday along with her cardiac medication including Lopressor and amiodarone and Lessina Prell. Patient on admission stated that her symptoms improved after stopping medication and has more energy today. Patient denied recent fever chills nausea vomiting abdominal pain dizziness lightheadedness or blurry vision stated that oral intake has been minimum since patient was sent to a [facility]. Patient is denying tobacco alcohol or drug abuse 05/22: Patient stated that she is at least 50% improved since admission denying any dizziness lightheadedness or blurry vision. Patient is tolerating diet without difficulty and stated that fluid infusion made her feel much better 05/23: Patient denies any new complaints. She had a chest x-ray this morning that showed a 10% left pneumothorax and consult added for Dr. Kelley. Cardiology has recommended avoiding amiodarone, continue eliquis 5 g twice daily and stop midodrine. 05/24: Repeat chest x-ray shows pneumothorax has improved somewhat in the interval. Likely basilar effusions and associated atelectasis. Correlate to exclude pneumonia. Pulmonary medicine has ordered 1 dose of IV Lasix [address] Bowen is recommending continuing Lasix 20 mg orally twice daily upon discharge. With follow-up in one to 2 weeks. Cardiology is planning to continue current medications and repeat EKG this afternoon. Repeat lab work reveals BUN of 31, creatinine 1.3, hemoglobin 10.2. Capillary blood glucose running between 113 and 206. Calcium 10.4. Physical therapy has recommended either home with homecare or subacute rehab. Case management has made arrangements for [facility] care. 05/25: Patient has been afebrile, blood pressure 136/60, pulse ox 90% on 3 L nasal cannula, heart rate 65. insulation power unit tender has been a sinus rhythm. Repeat lab work reveals a CBC 6.1, hemoglobin 8.7, platelet count 148. BUN 38 and cr eatinine 1.54. Currently blood glucose running between 117 158. Case management and social services coordinator following for discharge planning. Sister is not able to help her at discharge and we are now looking at subacute rehab. Patient would like to go to [facility]. If bed is available arrangements can be completed, patient will be discharged to [facility] today in stable condition. Discharge diagnoses: 1. Generalized weakness. 2. Acute kidney injury with chronic kidney disease stage III likely secondary to Lasix and dehydration. 3. Bradycardia. 4. History of atrial fibrillation. Continue eliquis 5 mg twice daily. 5. Debility and deconditioning. 6. Slight elevation in troponin likely related to acute kidney injury and demand mismatch ischemia. 7. Chronic hypoxic respiratory failure home oxygen dependent for the last 2 month. 8. Insomnia. 9. Polypharmacy. 10. Chronic nausea. 11. Generalized anxiety disorder and recurrent depression. 12. Diabetes mellitus type 2 insulin-dependent 13. 10% left pneumothorax. 14. Hypertension. 15. Chronic hypercalcemia. Discharge plan: [facility] under the care of Dr. Mills Impression and plan of care have been directed as dictated by the signing physician. Nubia Carsuo nurse practitioner acting as scribe for signing physician. Patient Condition at Discharge: Good Plan - Discharge Summary Discharge Rx Participant: No New Discharge Prescriptions: Continue Cyanocobalamin [Vitamin B-12] 500 mcg PO DAILY Pravastatin Sodium [Pravachol] 20 mg PO HS Apixaban [Eliquis] 5 mg PO BID Budesonide 1 mg INHALATION RT-BID Divalproex Sodium [Depakote Sprinkle] 500 mg PO DAILY Famotidine [Pepcid] 20 mg PO DAILY Ferrous Sulfate [Iron (65 MG Elemental)] 325 mg PO BID Levothyroxine Sodium 112 mcg PO DAILY Lisinopril [Prinivil] 5 mg PO DAILY Magnesium Oxide 400 mg PO DAILY Melatonin 10 mg PO HS Sennosides [Senna] 8.6 mg PO BID Sertraline [Zoloft] 50 mg PO DAILY Sucralfate [Carafate] 1 gm PO ACHS Albuterol Nebulized [Ventolin Nebulized] 2.5 mg INHALATION RT-Q4H PRN PRN Reason: Shortness Of Breath Acetaminophen Tab [Tylenol] 650 mg PO Q6H PRN PRN Reason: Pain Furosemide [Lasix] 20 mg PO BID Insulin Glargine [Lantus] 12 unit SQ HS Insulin Lispro [humaLOG Kwikpen] 5 unit SQ AC-TID #0 ALPRAZolam [Xanax] 0.25 mg PO BID PRN #6 tab PRN Reason: Anxiety Discontinued Amiodarone [Cordarone] 200 mg PO DAILY Metoprolol Tartrate [Lopressor] 25 mg PO BID Midodrine [ProAmatine] 5 mg PO TID [place]-3 Fatty Acids/Fish Oil [Fish Oil 1,000 mg Softgel] 1 cap PO DAILY Discharge Medication List Cyanocobalamin [Vitamin B-12] 500 mcg PO DAILY 04/23/14 [History] Pravastatin Sodium [Pravachol] 20 mg PO HS 04/23/14 [History] Acetaminophen Tab [Tylenol] 650 mg PO Q6H PRN 05/20/19 [History] Albuterol Nebulized [Ventolin Nebulized] 2.5 mg INHALATION RT-Q4H PRN 05/20/19 [History] Apixaban [Eliquis] 5 mg PO BID 05/20/19 [History] Budesonide 1 mg INHALATION RT-BID 05/20/19 [History] Divalproex Sodium [Depakote Sprinkle] 500 mg PO DAILY 05/20/19 [History] Famotidine [Pepcid] 20 mg PO DAILY 05/20/19 [History] Ferrous Sulfate [Iron (65 MG Elemental)] 325 mg PO BID 05/20/19 [History] Furosemide [Lasix] 20 mg PO BID 05/20/19 [History] Insulin Glargine [Lantus] 12 unit SQ HS 05/20/19 [History] Levothyroxine Sodium 112 mcg PO DAILY 05/20/19 [History] Lisinopril [Prinivil] 5 mg PO DAILY 05/20/19 [History] Magnesium Oxide 400 mg PO DAILY 05/20/19 [History] Melatonin 10 mg PO HS 05/20/19 [History] Sennosides [Senna] 8.6 mg PO BID 05/20/19 [History] Sertraline [Zoloft] 50 mg PO DAILY 05/20/19 [History] Sucralfate [Carafate] 1 gm PO ACHS 05/20/19 [History] ALPRAZolam [Xanax] 0.25 mg PO BID PRN #6 tab 05/25/19 [Rx] Insulin Lispro [humaLOG Kwikpen] 5 unit SQ AC-TID #0 05/25/19 [Rx] Follow up Appointment(s)/Referral(s): Eleazar Mills MD [Primary Care Provider] - 1 Week (Please call to schedule this appointment yourself per office policy) [facility], [NON-STAFF] - Chema Bowen DO [STAFF PHYSICIAN] - 08/15/19 9:40 am ([place] location -previously scheduled appointment. Nothing sooner at [facility]) Discharge Disposition: HOME WITH HOME HEALTH SERVICES
--- NOTE | 2019-05-25 15:06 | P.PN ---
Subjective Progress Note Date: 05/25/19 This is a pleasant 78-year-old female seen and examined this morning, denies any dizziness or lightheadedness. Heart rate remaining in the 60s today. Blood pressure 134/60. White blood cell count 5.8, hemoglobin 9.0, platelet count 151. Sodium 140, potassium or 4.5, BUN 39 and creatinine 1.2. 05/24/2019 She was seen and examined this morning sitting up in the chair at bedside, she had just been up ambulating with physical therapy and her heart rate was up in the 1 teens low 120 range. In the afternoon she was reevaluated her heart rate at that time was in the 80 range. She has had no documented orthostatic. Her blood pressure 150/70, 98% on 2 L of oxygen. White blood cell count 7.7, hemoglobin 9.2, platelet count 216, sodium 140, potassium 4.5, BUN 22 and creatinine 0.9. 05/25/2019 Patient was seen and examined this morning, feels well, heart rate remaining today in the 70s, normal sinus rhythm. She did have one episode to the night where her heart rate briefly went up to the 100 range, other than that she's been maintaining heart rate in the 70s. Objective - Vital Signs Vital signs: Vital Signs Temp 98.1 F 05/25/19 11:50 Pulse 65 05/25/19 11:50 Resp 18 05/25/19 11:50 BP 136/60 05/25/19 11:50 Pulse Ox 100 05/25/19 11:50 Intake & Output 05/24/19 05/25/19 05/25/19 18:59 06:59 18:59 Intake Total 600 800 480 Output Total 3 450 Balance 597 800 30 Weight 57.6 kg Intake: Oral 600 800 480 Output: Urine 450 Stool 3 Other: Voiding Method Bedside Commode Bedside Commode # Voids 2 2 1 # Bowel Movements 1 - Exam PHYSICAL EXAMINATION: GENERAL: 78-year-old female in no acute distress at the time of my examination HEENT: Head is atraumatic, normocephalic. Pupils equal, round. Sclera anicteric. Conjunctiva are clear. Mucous membranes of the mouth are moist. Neck is supple. There is no elevated jugular venous pressure. No carotid bruit is heard. HEART EXAMINATION: Heart S1-S2 no murmur or gallop is heard CHEST EXAMINATION: Lungs reveal diminished air entry bilaterally. ABDOMEN: Soft, nontender. Bowel sounds are heard. No organomegaly noted. EXTREMITIES: 2+ peripheral pulses with no evidence of peripheral edema and no calf tenderness noted. NEUROLOGIC patient is awake, alert and oriented 3. . - Labs CBC & Chem 7: 05/25/19 06:39 05/25/19 06:39 Labs: Abnormal Lab Results - Last 24 Hours (Table) 05/24/19 05/24/19 05/25/19 Range/Units 16:45 21:35 06:39 RBC (3.80-5.40) m/uL Hgb (11.4-16.0) gm/dL Hct (34.0-46.0) % RDW (11.5-15.5) % Plt Count (150-450) k/uL BUN 38 H (7-17) mg/dL Creatinine 1.54 H (0.52-1.04) mg/dL Glucose 106 H (74-99) mg/dL POC Glucose (mg/dL) 168 H 157 H (75-99) mg/dL 05/25/19 05/25/19 05/25/19 Range/Units 06:39 06:58 11:55 RBC 3.01 L (3.80-5.40) m/uL Hgb 8.7 L D (11.4-16.0) gm/dL Hct 27.9 L (34.0-46.0) % RDW 17.5 H (11.5-15.5) % Plt Count 148 L (150-450) k/uL BUN (7-17) mg/dL Creatinine (0.52-1.04) mg/dL Glucose (74-99) mg/dL POC Glucose (mg/dL) 107 H 158 H (75-99) mg/dL Assessment and Plan Plan: Assessment and plan #1 sinus bradycardia on admission #2 paroxysmal atrial fibrillation #3 sick sinus syndrome #4 hypertension Plan From cardiology's perspective, we'll continue current medications. Patient may be discharged home from our perspective, follow-up appointment in the office post discharge DNP note has been reviewed, I agree with a documented findings and plan of care. Patient was seen and examined.
[2019-05-25] MEDS ORDERED: FUROSEMIDE 20 MG TAB PO SCH (16:00)
[2019-05-25 16:33] LABS: Glucose,Whole Blood 134 mg/dL (75-99)
--- NOTE | 2019-05-30 00:13 | CDI ---
Documentation Clarification Form Date:05/30/19 From: Fernando Calzada Phone: call to [phone] Admit Date: 05/20/2019 7:45:00 PM Patient Name: Tammi Schneider Visit Number: [id number] Discharge Date: 05/25/2019 4:58:00 PM ATTENTION: The Clinical Documentation Specialists (CDI) and [facility] Coding Staff appreciate your assistance in clarifying documentation. Please respond to the clarification below the line at the bottom and electronically sign. The CDI & [facility] Coding staff will review the response and follow-up if needed. Please note: Queries are made part of the Legal Health Record. If you have any questions, please contact the author of this message via ITS. Dr. Rosenda Lin, CHF is documented in the 05/23 consult note as Mild CHF. History/Risk Factors: pleural effusion. Clinical Indicators: VS/Pulse OX: 88L,95,98 BNP: Not obtained Echocardiogram Results:Not obtained Chest X Ray: Bilateral infiltrate and pleural effusion correlate for mild CHF Treatment: IV lasix and then lasix orally. In your professional opinion, can you please clarify the acuity and type of CHF if known? Systolic Heart Failure: Acute Chronic Acute on Chronic Diastolic Heart Failure: Acute Chronic Acute on Chronic Systolic & Diastolic Heart Failure: Acute Chronic Acute on Chronic Heart Failure Unable to Determine Other, please specify unable to determine MTDD
== END 2019-05-25 16:58 | DRG 683 ==
LOC: EC 17:51 → 3SCARD 19:45
PROVIDERS: ADMIT Internal Medicine; ATTEND Internal Medicine
DX: N17.9 Acute kidney failure, unspecified (principal); J96.10 Chronic respiratory failure, unspecified whether with hypoxia or hypercapnia; E87.3 Alkalosis; J93.83 Other pneumothorax; J98.11 Atelectasis; I13.0 Hypertensive heart and chronic kidney disease with heart failure and stage 1 through stage 4 chronic kidney disease, or unspecified chronic kidney disease; F33.9 Major depressive disorder, recurrent, unspecified; J96.11 Chronic respiratory failure with hypoxia; I24.8 Other forms of acute ischemic heart disease; I49.5 Sick sinus syndrome; T50.1X5A Adverse effect of loop [high-ceiling] diuretics, initial encounter; I50.9 Heart failure, unspecified; E83.52 Hypercalcemia; E83.42 Hypomagnesemia; E86.0 Dehydration; I48.0 Paroxysmal atrial fibrillation; E11.69 Type 2 diabetes mellitus with other specified complication; E11.22 Type 2 diabetes mellitus with diabetic chronic kidney disease; N18.3 Chronic kidney disease, stage 3 (moderate); D63.1 Anemia in chronic kidney disease; E78.5 Hyperlipidemia, unspecified; G40.909 Epilepsy, unspecified, not intractable, without status epilepticus; R53.81 Other malaise; E03.9 Hypothyroidism, unspecified; G47.00 Insomnia, unspecified; F41.1 Generalized anxiety disorder; Z99.81 Dependence on supplemental oxygen; Z90.710 Acquired absence of both cervix and uterus; Z79.899 Other long term (current) drug therapy; Z79.51 Long term (current) use of inhaled steroids; Z79.01 Long term (current) use of anticoagulants; Z79.4 Long term (current) use of insulin; Z79.890 Hormone replacement therapy; Z86.73 Personal history of transient ischemic attack (TIA), and cerebral infarction without residual deficits; Z80.3 Family history of malignant neoplasm of breast; Z82.49 Family history of ischemic heart disease and other diseases of the circulatory system; Z88.1 Allergy status to other antibiotic agents; Z91.041 Radiographic dye allergy status; Z90.49 Acquired absence of other specified parts of digestive tract; Z98.890 Other specified postprocedural states
CPT/HCPCS: 36415; 71045; 80048; 80053; 83540; 83550; 83735; 84443; 84484; 85025; 93005; 94640; 94760; 99285

== ENCOUNTER 2019-06-05 20:02 | Inpatient (IN) | payer MEDICARE, BC, OTHER ==
--- NOTE | 2019-06-05 20:17 | ED ---
SOB HPI - General Chief Complaint: Shortness of Breath Stated Complaint: Diff Breathing,Neck Pain Time Seen by Provider: 06/05/19 20:05 Source: patient, EMS, RN notes reviewed, Caregiver Mode of arrival: EMS Limitations: no limitations - History of Present Illness Initial Comments: This is a 78-year-old female history of multiple medical issues who has been on Levaquin for the past 6 days due to suspected pneumonia she did come in because of shortness of breath going on for about a week to psych any better has had a fever. She also was taken off of Lasix 2 days ago due to elevated creatinine. Doesn't feel well she does have a cough no chills or sweats reported no overt chest pain or other symptoms reported at this time. MD Complaint: shortness of breath - Related Data Home Medications Medication Instructions Recorded Confirmed Cyanocobalamin [Vitamin B-12] 500 mcg PO DAILY@1700 04/23/14 06/05/19 Pravastatin Sodium [Pravachol] 20 mg PO HS@2100 04/23/14 06/05/19 Acetaminophen Tab [Tylenol] 650 mg PO Q6H PRN 05/20/19 06/05/19 Albuterol Nebulized [Ventolin 2.5 mg INHALATION RT-Q4H PRN 05/20/19 06/05/19 Nebulized] Apixaban [Eliquis] 5 mg PO BID@0800,1700 05/20/19 06/05/19 Budesonide 1 mg INHALATION RT-BID@0800,1700 05/20/19 06/05/19 Divalproex Sodium [Depakote 500 mg PO DAILY@0800 05/20/19 06/05/19 Sprinkle] Famotidine [Pepcid] 20 mg PO DAILY@0800 05/20/19 06/05/19 Ferrous Sulfate [Iron (65 MG 325 mg PO BID@0800,1700 05/20/19 06/05/19 Elemental)] Furosemide [Lasix] 20 mg PO DAILY@0600 05/20/19 06/05/19 Insulin Glargine [Lantus] 12 unit SQ HS@2130 05/20/19 06/05/19 Levothyroxine Sodium 112 mcg PO DAILY@0600 05/20/19 06/05/19 Lisinopril [Prinivil] 5 mg PO DAILY@0800 05/20/19 06/05/19 Magnesium Oxide 400 mg PO DAILY@1700 05/20/19 06/05/19 Melatonin 10 mg PO HS@2100 05/20/19 06/05/19 Sertraline [Zoloft] 50 mg PO DAILY@0800 05/20/19 06/05/19 Sucralfate [Carafate] 1 gm PO ACHS 05/20/19 06/05/19 Bisacodyl [Dulcolax] 10 mg RECTAL DAILY PRN 06/05/19 06/05/19 Glucerna Shake 1 can PO TID@0800,1200,1700 06/05/19 06/05/19 Insulin Lispro [humaLOG Kwikpen] 5 unit SQ TID@0700,1100,1730 06/05/19 06/05/19 Ipratropium-Albuterol Nebulize 3 ml INHALATION RT-QID 06/05/19 06/05/19 [Duoneb 0.5 mg-3 mg/3 ml Soln] Levofloxacin [Levaquin] 250 mg PO DAILY@0800 06/05/19 06/05/19 Magnesium Hydroxide [Milk of 7,200 mg PO DAILY PRN 06/05/19 06/05/19 Magnesia Concentrate] Na Phos,M-B/Na Phos,Di-Ba [Fleet 133 ml RECTAL DAILY PRN 06/05/19 06/05/19 Adult] Sennosides-Docusate Sodium 1 tab PO BID@0800,1700 06/05/19 06/05/19 [Senokot-S] Previous Rx's Medication Instructions Recorded ALPRAZolam [Xanax] 0.25 mg PO BID PRN #6 tab 05/25/19 Allergies Allergy/AdvReac Type Severity Reaction Status Date / Time doxycycline calcium Allergy Anaphylaxis Verified 06/05/19 20:52 [From Vibramycin] doxycycline hyclate Allergy Anaphylaxis Verified 06/05/19 20:52 [From Vibramycin] doxycycline monohydrate Allergy Anaphylaxis Verified 06/05/19 20:52 [From Vibramycin] erythromycin base Allergy Anaphylaxis Verified 06/05/19 20:52 Iodinated Contrast- Oral and Allergy Anaphylaxis Verified 06/05/19 20:52 IV Dye [Iodinated Contrast Media - IV Dye] Review of Systems ROS Statement: Those systems with pertinent positive or pertinent negative responses have been documented in the HPI. ROS Other: All systems not noted in ROS Statement are negative. Past Medical History Past Medical History: Heart Failure, CVA/TIA, Diabetes Mellitus, Hypertension, Renal Disease Additional Past Medical History / Comment(s): TIAs 4 with previous TIA 18 months ago. Motor seizures left leg anemic, irregular heart beat; murmur History of Any Multi-Drug Resistant Organisms: None Reported Past Surgical History: Appendectomy, Hysterectomy, Orthopedic Surgery Additional Past Surgical History / Comment(s): left knee arthroscopy, cyst removal (pilonidal cyst) Past Anesthesia/Blood Transfusion Reactions: No Reported Reaction Past Psychological History: Anxiety Smoking Status: Never smoker - Past Family History Father Family Medical History: Congestive Heart Failure (CHF) Mother Family Medical History: Congestive Heart Failure (CHF) Sister(s) Family Medical History: Cancer Additional Family Medical History / Comment(s): breast CA Son(s) Family Medical History: Hypertension General Exam - General Exam Comments Initial Comments: This is a well-developed well-nourished awake alert oriented x 3 female Limitations: no limitations General appearance: alert, lethargic Head exam: Present: atraumatic, normocephalic, normal inspection Eye exam: Present: normal appearance, PERRL, EOMI. Absent: scleral icterus, conjunctival injection, periorbital swelling ENT exam: Present: normal exam, mucous membranes moist Neck exam: Present: normal inspection. Absent: tenderness, meningismus, lymphadenopathy Respiratory exam: Present: rales, decreased breath sounds, other (Decreased lung sounds on the left was days or crackles.). Absent: respiratory distress, wheezes, rhonchi, stridor Cardiovascular Exam: Present: regular rate, normal rhythm, normal heart sounds. Absent: systolic murmur, diastolic murmur, rubs, gallop, clicks GI/Abdominal exam: Present: soft, normal bowel sounds. Absent: distended, tenderness, guarding, rebound, rigid Rectal exam: Present: normal inspection, heme (-) stool Extremities exam: Present: normal inspection, full ROM, normal capillary refill. Absent: tenderness, pedal edema, joint swelling, calf tenderness Back exam: Present: normal inspection Neurological exam: Present: alert, oriented X3, CN II-XII intact Psychiatric exam: Present: normal affect, normal mood Skin exam: Present: warm, dry, intact, normal color. Absent: rash Course Vital Signs 06/05/19 06/05/19 06/05/19 20:07 20:17 21:42 Temperature 99.2 F 98.8 F Pulse Rate 95 79 Respiratory 22 22 18 Rate Blood Pressure 117/52 117/52 O2 Sat by Pulse 98 99 Oximetry Medical Decision Making - Medical Decision Making I did reevaluate patient several occasions no further worsening of her condition she does have evidence of CHF and pleural effusion. Did discuss case with her and her family. Rectal exam was performed initial finding was no evidence of acute bleed also did discuss case with Dr. Barkley. Patient will be admitted with consultation by Dr. Kelley additionally patient be started on antibiotics in addition to her current medication - Lab Data Result diagrams: 06/05/19 20:30 06/05/19 20:30 Lab Results 06/05/19 06/05/19 06/05/19 Range/Units 20:30 20:30 20:30 WBC 9.1 (3.8-10.6) k/uL RBC 2.72 L (3.80-5.40) m/uL Hgb 7.7 L (11.4-16.0) gm/dL Hct 24.9 L (34.0-46.0) % MCV 91.4 (80.0-100.0) fL MCH 28.3 (25.0-35.0) pg MCHC 31.0 (31.0-37.0) g/dL RDW 17.6 H (11.5-15.5) % Plt Count 327 (150-450) k/uL Neutrophils % 84 % Lymphocytes % 5 % Monocytes % 9 % Eosinophils % 1 % Basophils % 0 % Neutrophils # 7.6 (1.3-7.7) k/uL Lymphocytes # 0.5 L (1.0-4.8) k/uL Monocytes # 0.8 (0-1.0) k/uL Eosinophils # 0.1 (0-0.7) k/uL Basophils # 0.0 (0-0.2) k/uL Hypochromasia Moderate Anisocytosis Slight PT (9.0-12.0) sec INR (<1.2) APTT (22.0-30.0) sec Sodium 138 (137-145) mmol/L Potassium 4.4 (3.5-5.1) mmol/L Chloride 101 (98-107) mmol/L Carbon Dioxide 26 (22-30) mmol/L Anion Gap 11 mmol/L BUN 43 H (7-17) mg/dL Creatinine 1.51 H (0.52-1.04) mg/dL Est GFR (CKD-EPI)AfAm 38 (>60 ml/min/1.73 sqM) Est GFR (CKD-EPI)NonAf 33 (>60 ml/min/1.73 sqM) Glucose 273 H (74-99) mg/dL Plasma Lactic Acid Cam (0.7-2.0) mmol/L Calcium 9.2 (8.4-10.2) mg/dL Magnesium 2.3 (1.6-2.3) mg/dL Total Bilirubin 0.1 L (0.2-1.3) mg/dL AST 13 L (14-36) U/L ALT 17 (9-52) U/L Alkaline Phosphatase 65 (38-126) U/L Troponin I (0.000-0.034) ng/mL NT-Pro-B Natriuret Pep 9790 pg/mL Total Protein 5.5 L (6.3-8.2) g/dL Albumin 2.9 L (3.5-5.0) g/dL Stool Occult Blood (Negative) 06/05/19 06/05/19 06/05/19 Range/Units 20:30 20:30 20:30 WBC (3.8-10.6) k/uL RBC (3.80-5.40) m/uL Hgb (11.4-16.0) gm/dL Hct (34.0-46.0) % MCV (80.0-100.0) fL MCH (25.0-35.0) pg MCHC (31.0-37.0) g/dL RDW (11.5-15.5) % Plt Count (150-450) k/uL Neutrophils % % Lymphocytes % % Monocytes % % Eosinophils % % Basophils % % Neutrophils # (1.3-7.7) k/uL Lymphocytes # (1.0-4.8) k/uL Monocytes # (0-1.0) k/uL Eosinophils # (0-0.7) k/uL Basophils # (0-0.2) k/uL Hypochromasia Anisocytosis PT 10.2 (9.0-12.0) sec INR 0.9 (<1.2) APTT 33.3 H (22.0-30.0) sec Sodium (137-145) mmol/L Potassium (3.5-5.1) mmol/L Chloride (98-107) mmol/L Carbon Dioxide (22-30) mmol/L Anion Gap mmol/L BUN (7-17) mg/dL Creatinine (0.52-1.04) mg/dL Est GFR (CKD-EPI)AfAm (>60 ml/min/1.73 sqM) Est GFR (CKD-EPI)NonAf (>60 ml/min/1.73 sqM) Glucose (74-99) mg/dL Plasma Lactic Acid Cam 2.4 H* (0.7-2.0) mmol/L Calcium (8.4-10.2) mg/dL Magnesium (1.6-2.3) mg/dL Total Bilirubin (0.2-1.3) mg/dL AST (14-36) U/L ALT (9-52) U/L Alkaline Phosphatase (38-126) U/L Troponin I 0.019 (0.000-0.034) ng/mL NT-Pro-B Natriuret Pep pg/mL Total Protein (6.3-8.2) g/dL Albumin (3.5-5.0) g/dL Stool Occult Blood (Negative) 06/05/19 Range/Units 22:27 WBC (3.8-10.6) k/uL RBC (3.80-5.40) m/uL Hgb (11.4-16.0) gm/dL Hct (34.0-46.0) % MCV (80.0-100.0) fL MCH (25.0-35.0) pg MCHC (31.0-37.0) g/dL RDW (11.5-15.5) % Plt Count (150-450) k/uL Neutrophils % % Lymphocytes % % Monocytes % % Eosinophils % % Basophils % % Neutrophils # (1.3-7.7) k/uL Lymphocytes # (1.0-4.8) k/uL Monocytes # (0-1.0) k/uL Eosinophils # (0-0.7) k/uL Basophils # (0-0.2) k/uL Hypochromasia Anisocytosis PT (9.0-12.0) sec INR (<1.2) APTT (22.0-30.0) sec Sodium (137-145) mmol/L Potassium (3.5-5.1) mmol/L Chloride (98-107) mmol/L Carbon Dioxide (22-30) mmol/L Anion Gap mmol/L BUN (7-17) mg/dL Creatinine (0.52-1.04) mg/dL Est GFR (CKD-EPI)AfAm (>60 ml/min/1.73 sqM) Est GFR (CKD-EPI)NonAf (>60 ml/min/1.73 sqM) Glucose (74-99) mg/dL Plasma Lactic Acid Cam (0.7-2.0) mmol/L Calcium (8.4-10.2) mg/dL Magnesium (1.6-2.3) mg/dL Total Bilirubin (0.2-1.3) mg/dL AST (14-36) U/L ALT (9-52) U/L Alkaline Phosphatase (38-126) U/L Troponin I (0.000-0.034) ng/mL NT-Pro-B Natriuret Pep pg/mL Total Protein (6.3-8.2) g/dL Albumin (3.5-5.0) g/dL Stool Occult Blood Negative (Negative) - EKG Data -: EKG Interpreted by Me (EKG done at the time of arrival shows a sinus rhythm of 94. Interval 150 4) - Radiology Data Radiology results: report reviewed (I did review the imaging and report evidence of CHF and pleural effusions more so on the left and right), image reviewed Disposition Clinical Impression: Congestive heart failure, Pleural cavity effusion, Anemia, Renal insufficiency syndrome Disposition: ADMITTED IP TO THIS [facility] Condition: Fair Referrals: Eleazar Mills MD [Primary Care Provider] - 1-2 days
[2019-06-05 21:09] LABS: INR 0.9 (<1.2)
[2019-06-05 21:10] LABS: Anisocytosis Slight; Basophils % (A) 0 %; Eosinophils # (A) 0.1 k/uL (0-0.7); Eosinophils % (A) 1 %; HCT 24.9 % (34.0-46.0); HGB 7.7 gm/dL (11.4-16.0); Hypochromasia Moderate; Lymphocytes # (A) 0.5 k/uL (1.0-4.8); Lymphocytes % (A) 5 %; MCH 28.3 pg (25.0-35.0); MCV 91.4 fL (80.0-100.0); Mean Platelet Volume 7.4; Monocytes # (A) 0.8 k/uL (0-1.0); Monocytes % (A) 9 %; Neutrophils # (A) 7.6 k/uL (1.3-7.7); Neutrophils % (A) 84 %; Partial Thromboplastin Time 33.3 sec (22.0-30.0); Platelet Count 327 k/uL (150-450); Prothrombin Time 10.2 sec (9.0-12.0); RBC 2.72 m/uL (3.80-5.40); RDW 17.6 % (11.5-15.5); WBC 9.1 k/uL (3.8-10.6)
[2019-06-05 21:12] LABS: Albumin 2.9 g/dL (3.5-5.0); Calcium 9.2 mg/dL (8.4-10.2); Magnesium 2.3 mg/dL (1.6-2.3); Potassium 4.4 mmol/L (3.5-5.1); Total Bilirubin 0.1 mg/dL (0.2-1.3); Total Protein 5.5 g/dL (6.3-8.2)
--- NOTE | 2019-06-05 21:35 | XR ---
EXAMINATION TYPE: XR chest 2V DATE OF EXAM: 06/05/2019 COMPARISON: Prior chest x-ray 05/24/2019 HISTORY: Difficulty breathing TECHNIQUE: Frontal and lateral views of the chest are obtained. FINDINGS: Findings are similar to prior exam. Heart is enlarged. No pneumothorax. Bibasilar increase d density persists. IMPRESSION: Cardiomegaly with bilateral pleural effusions and associated atelectasis versus pneumoni a, follow-up to resolution.
[2019-06-05] MEDS ORDERED: LEVOFLOXACIN 750MG-D5W PMX 750 MG in DEXTROSE/WATER 1 150ML.BAG IVPB STA (23:03)
--- NOTE | 2019-06-05 23:03 | ED ---
Medical Decision Making - Medical Decision Making Additionally the findings on x-ray. Her present pneumonia. Initial lactic acid is likely secondary to intravascular viral depletion as well as the renal function. Reevaluation patient finds her to be awake alert oriented 3 no change in her previous status diminished breath sounds in the bases especially on the left compared to the right with basal rales on the right. No change in findings from the original exam. - Lab Data Result diagrams: 06/05/19 20:30 06/05/19 20:30 Lab Results 06/05/19 06/05/19 06/05/19 Range/Units 20:30 20:30 20:30 WBC 9.1 (3.8-10.6) k/uL RBC 2.72 L (3.80-5.40) m/uL Hgb 7.7 L (11.4-16.0) gm/dL Hct 24.9 L (34.0-46.0) % MCV 91.4 (80.0-100.0) fL MCH 28.3 (25.0-35.0) pg MCHC 31.0 (31.0-37.0) g/dL RDW 17.6 H (11.5-15.5) % Plt Count 327 (150-450) k/uL Neutrophils % 84 % Lymphocytes % 5 % Monocytes % 9 % Eosinophils % 1 % Basophils % 0 % Neutrophils # 7.6 (1.3-7.7) k/uL Lymphocytes # 0.5 L (1.0-4.8) k/uL Monocytes # 0.8 (0-1.0) k/uL Eosinophils # 0.1 (0-0.7) k/uL Basophils # 0.0 (0-0.2) k/uL Hypochromasia Moderate Anisocytosis Slight PT (9.0-12.0) sec INR (<1.2) APTT (22.0-30.0) sec Sodium 138 (137-145) mmol/L Potassium 4.4 (3.5-5.1) mmol/L Chloride 101 (98-107) mmol/L Carbon Dioxide 26 (22-30) mmol/L Anion Gap 11 mmol/L BUN 43 H (7-17) mg/dL Creatinine 1.51 H (0.52-1.04) mg/dL Est GFR (CKD-EPI)AfAm 38 (>60 ml/min/1.73 sqM) Est GFR (CKD-EPI)NonAf 33 (>60 ml/min/1.73 sqM) Glucose 273 H (74-99) mg/dL Plasma Lactic Acid Cam (0.7-2.0) mmol/L Calcium 9.2 (8.4-10.2) mg/dL Magnesium 2.3 (1.6-2.3) mg/dL Total Bilirubin 0.1 L (0.2-1.3) mg/dL AST 13 L (14-36) U/L ALT 17 (9-52) U/L Alkaline Phosphatase 65 (38-126) U/L Troponin I (0.000-0.034) ng/mL NT-Pro-B Natriuret Pep 9790 pg/mL Total Protein 5.5 L (6.3-8.2) g/dL Albumin 2.9 L (3.5-5.0) g/dL Stool Occult Blood (Negative) 06/05/19 06/05/19 06/05/19 Range/Units 20:30 20:30 20:30 WBC (3.8-10.6) k/uL RBC (3.80-5.40) m/uL Hgb (11.4-16.0) gm/dL Hct (34.0-46.0) % MCV (80.0-100.0) fL MCH (25.0-35.0) pg MCHC (31.0-37.0) g/dL RDW (11.5-15.5) % Plt Count (150-450) k/uL Neutrophils % % Lymphocytes % % Monocytes % % Eosinophils % % Basophils % % Neutrophils # (1.3-7.7) k/uL Lymphocytes # (1.0-4.8) k/uL Monocytes # (0-1.0) k/uL Eosinophils # (0-0.7) k/uL Basophils # (0-0.2) k/uL Hypochromasia Anisocytosis PT 10.2 (9.0-12.0) sec INR 0.9 (<1.2) APTT 33.3 H (22.0-30.0) sec Sodium (137-145) mmol/L Potassium (3.5-5.1) mmol/L Chloride (98-107) mmol/L Carbon Dioxide (22-30) mmol/L Anion Gap mmol/L BUN (7-17) mg/dL Creatinine (0.52-1.04) mg/dL Est GFR (CKD-EPI)AfAm (>60 ml/min/1.73 sqM) Est GFR (CKD-EPI)NonAf (>60 ml/min/1.73 sqM) Glucose (74-99) mg/dL Plasma Lactic Acid Cam 2.4 H* (0.7-2.0) mmol/L Calcium (8.4-10.2) mg/dL Magnesium (1.6-2.3) mg/dL Total Bilirubin (0.2-1.3) mg/dL AST (14-36) U/L ALT (9-52) U/L Alkaline Phosphatase (38-126) U/L Troponin I 0.019 (0.000-0.034) ng/mL NT-Pro-B Natriuret Pep pg/mL Total Protein (6.3-8.2) g/dL Albumin (3.5-5.0) g/dL Stool Occult Blood (Negative) 06/05/19 Range/Units 22:27 WBC (3.8-10.6) k/uL RBC (3.80-5.40) m/uL Hgb (11.4-16.0) gm/dL Hct (34.0-46.0) % MCV (80.0-100.0) fL MCH (25.0-35.0) pg MCHC (31.0-37.0) g/dL RDW (11.5-15.5) % Plt Count (150-450) k/uL Neutrophils % % Lymphocytes % % Monocytes % % Eosinophils % % Basophils % % Neutrophils # (1.3-7.7) k/uL Lymphocytes # (1.0-4.8) k/uL Monocytes # (0-1.0) k/uL Eosinophils # (0-0.7) k/uL Basophils # (0-0.2) k/uL Hypochromasia Anisocytosis PT (9.0-12.0) sec INR (<1.2) APTT (22.0-30.0) sec Sodium (137-145) mmol/L Potassium (3.5-5.1) mmol/L Chloride (98-107) mmol/L Carbon Dioxide (22-30) mmol/L Anion Gap mmol/L BUN (7-17) mg/dL Creatinine (0.52-1.04) mg/dL Est GFR (CKD-EPI)AfAm (>60 ml/min/1.73 sqM) Est GFR (CKD-EPI)NonAf (>60 ml/min/1.73 sqM) Glucose (74-99) mg/dL Plasma Lactic Acid Cam (0.7-2.0) mmol/L Calcium (8.4-10.2) mg/dL Magnesium (1.6-2.3) mg/dL Total Bilirubin (0.2-1.3) mg/dL AST (14-36) U/L ALT (9-52) U/L Alkaline Phosphatase (38-126) U/L Troponin I (0.000-0.034) ng/mL NT-Pro-B Natriuret Pep pg/mL Total Protein (6.3-8.2) g/dL Albumin (3.5-5.0) g/dL Stool Occult Blood Negative (Negative) Disposition Clinical Impression: Congestive heart failure, Pleural cavity effusion, Anemia, Renal insufficiency syndrome, Pneumonia Disposition: ADMITTED IP TO THIS HOSP Condition: Fair Referrals: Eleazar Mills MD [Primary Care Provider] - 1-2 days
[2019-06-05] MEDS ORDERED: PIPERACILLIN-TAZOBACTAM 3.375 GM in SODIUM CHLORIDE 0.9% 100 ML IVPB STA (23:04)
[2019-06-05] MEDS ORDERED: FUROSEMIDE 10 MG/ML 4 ML VIAL IV STA (23:05)
[2019-06-06] MEDS: FUROSEMIDE 40 MG TAB PO SCH ×4 (00:18→23:05)
[2019-06-06 00:30] LABS: Glucose,Whole Blood 222 mg/dL (75-99)
[2019-06-06] MEDS: LEVOFLOXACIN 750MG-D5W PMX 750 MG in DEXTROSE/WATER 1 150ML.BAG IVPB SCH (00:45)
[2019-06-06] MEDS: ACETAMINOPHEN TAB 325 MG TAB PO PRN (00:46)
[2019-06-06] MEDS ORDERED: MAGNESIUM HYDROXIDE 2,400 MG/10 ML CUP PO PRN (06:00)
[2019-06-06] MEDS ORDERED: NA PHOS,M-B/NA PHOS,DI-BA 133 ML ENEMA RECTAL PRN (06:00)
[2019-06-06] MEDS ORDERED: BISACODYL 10 MG SUPP RECTAL PRN (06:00)
[2019-06-06 06:17] LABS: Glucose,Whole Blood 169 mg/dL (75-99)
[2019-06-06] MEDS: SUCRALFATE 1 GM TAB PO SCH ×4 (06:18→20:31)
[2019-06-06] MEDS: LEVOTHYROXINE 112 MCG TAB PO SCH (06:18)
[2019-06-06] MEDS: BUDESONIDE 1 MG/2 ML NEBU INHALATION SCH ×2 (06:49→19:43)
[2019-06-06] MEDS: IPRATROPIUM-ALBUTEROL 3 ML NEB INHALATION SCH ×4 (06:49→19:43)
[2019-06-06] MEDS ORDERED: NON FORMULARY DRUG (Glucerna Shake 1 CAN) PO SCH (08:00)
[2019-06-06] MEDS ORDERED: BUDESONIDE 1 MG/2 ML NEBU INHALATION SCH (08:00)
[2019-06-06] MEDS: LISINOPRIL 5 MG TAB PO SCH (08:36)
[2019-06-06] MEDS: FERROUS SULFATE 325 MG TAB PO SCH ×2 (08:36→16:45)
[2019-06-06] MEDS: SENNOSIDES-DOCUSATE SODIUM 1 EACH TAB PO SCH ×2 (08:36→16:45)
[2019-06-06] MEDS: PIPERACILLIN-TAZOBACTAM 3.375 GM in SODIUM CHLORIDE 0.9% 100 ML IVPB SCH ×3 (08:36→23:04)
[2019-06-06] MEDS: DIVALPROEX SPRINKLE 125 MG CAP.SPRINK PO SCH (08:36)
[2019-06-06] MEDS: FAMOTIDINE 20 MG TAB PO SCH (08:36)
[2019-06-06] MEDS: APIXABAN 5 MG TAB PO SCH ×2 (08:37→16:45)
[2019-06-06] MEDS: SERTRALINE 50 MG TAB PO SCH (08:37)
[2019-06-06 09:29] LABS: Glucose,Whole Blood 236 mg/dL (75-99)
[2019-06-06 11:56] LABS: Glucose,Whole Blood 220 mg/dL (75-99)
--- NOTE | 2019-06-06 13:38 | CT ---
EXAMINATION TYPE: CT chest wo con DATE OF EXAM: 06/06/2019 COMPARISON: Radiograph 06/05/2019 HISTORY: 78 year-old female shortness of breath, pleural effusions TECHNIQUE: Contiguous axial scanning of the chest without IV contrast. Coronal and sagittal reconstru ctions performed. CT DLP: 250.8 mGycm Automated exposure control for dose reduction was used. FINDINGS: Heart is mildly enlarged with small pericardial effusion. Coronary vessel calcifications are present as well as mitral annular calcifications. Ascending aorta is ectatic at 3.6 cm. Moderate atherosclerotic arch calcifications with conventional arch vessel branching anatomy. Large caliber to the main right and left pulmonary arteries at 2.8 and 2.5 cm, respectively, suggesti ng underlying pulmonary arterial hypertension. Evidence of prior granulomatous disease with calcified lymph nodes in the AP window, subcarinal regio n, and bilateral nancy. Mildly enlarged 1.5 cm right tracheobronchial angle lymph node likely reactive. There are small to moderate bilateral pleural effusions with adjacent atelectasis involving partially half of the right lower lobe and most of the left lower lobe. Scattered small areas of 3 mm smaller nodularity throughout the right lung possibly on the infectious /inflammatory basis. Larger subpleural nodularity overlying the right hemidiaphragm measuring 1 cm, axial image 41. A few calcified granulomas in the left lower lung. Visualized upper abdomen shows calcified granulomas in the spleen. Bones: Mild degenerative disc disease within the thoracic spine. Dextro convex scoliosis of the thora cic spine. IMPRESSION: 1. SMALL TO MODERATE BILATERAL PLEURAL EFFUSIONS. ADJACENT ATELECTATIC COLLAPSE OF MOST OF THE LEFT L OWER LOBE AND INVOLVING APPROXIMATELY HALF OF THE RIGHT LOWER LOBE. 2. PRIOR GRANULOMATOUS DISEASE. NUMEROUS 3 MM NODULES WITHIN THE RIGHT LUNG MAY ALSO REFLECT PRIOR GR ANULOMATOUS DISEASE OR OTHER INFECTIOUS/INFLAMMATORY PROCESS. THREE-MONTH FOLLOW-UP CT RECOMMENDED TO REASSESS. 3. A LARGER 1 CM SUBPLEURAL NODULE ALONG THE RIGHT HEMIDIAPHRAGM COULD REPRESENT AN AREA OF NODULAR A TELECTASIS AND CAN ALSO BE REASSESSED AT FOLLOW-UP. 4. A 1.5 CM ENLARGED RIGHT TRACHEOBRONCHIAL LYMPH NODE MAY BE REACTIVE. ATTENTION ON FOLLOW-UP.
[2019-06-06 14:02] VITALS: BMI 25.4
--- NOTE | 2019-06-06 14:14 | P.HPIM ---
History of Present Illness H&P Date: 06/06/19 This is a 78-year-old female patient of Dr. Mills currently at [facility] with past medical history of chronic kidney disease stage III, atrial fibrillation, chronic hypoxic respiratory failure on home O2, diabetes mellitus type 2, history of TIA, hypertension, seizure disorder without any recent seizure activity, generalized anxiety disorder and recurrent depression. Patient states she developed shortness of breath and difficulty breathing. She states she does not have much cough. No lower extremity edema. She does have pain with deep breathing. When she is flat she has increased shortness of breath. She complains of fever. She denies any sick contacts such as her roommate. She was started on Levaquin for pneumonia 6 days ago without significant improvement. She was also taken off Lasix 2 days ago due to increasing creatinine. Patient came into [facility] emergency center for evaluation. Patient was afebrile, blood pressure 117/52, pulse ox 98% on O2, pulse 95, respiratory rate 22. WBC normal at 9.1, hemoglobin 7.7 and patient seems to run at 9.6, BUN 43 and creatinine 1.51 with baseline of 1.2- 1.3. Blood sugar 273. ProBNP 9790, albumin 2.9. Chest x-ray reveals cardiomegaly with bilateral pleural effusion and associated atelectasis versus p neumonia. Patient was given 1 dose of IV Lasix, started on DuoNeb treatments, Levaquin, Zosyn and consult added for pulmonary medicine, Dr. Abreu. CT of the chest shows small to moderate bilateral pleural effusions. Adjacent atelectatic collapse left lower lobe and involving half of the right lower lobe. Prior granulomatous disease. Numerous 3 mm nodules within the right lung may also reflect prior granulomatous disease or other infectious or inflammatory process. One larger 1 cm subpleural nodule along the right hemidiaphragm could represent nodular atelectasis and should be reassessed. A 1.5 cm large right tracheobronchial lymph node may be reactive. Review of Systems Constitutional: Reports chills, Reports fatigue, Reports fever, Reports poor appetite, Reports weakness Ears, nose, mouth and throat: Denies dysphagia, Denies nasal congestion, Denies nasal discharge, Denies vertigo Cardiovascular: Reports chest pain, Reports decreased exercise tolerance, Reports dyspnea on exertion, Reports shortness of breath, Denies edema, Denies leg edema, Denies lightheadedness Respiratory: Reports cough, Reports dyspnea, Reports respiratory infections, Reports wheezing, Denies cough with sputum, Denies excessive sputum, Denies hemoptysis Gastrointestinal: Denies abdominal pain, Denies constipation, Denies dyspepsia, Denies loss of appetite, Denies nausea, Denies vomiting Genitourinary: Denies dysuria, Denies urgency, Denies urinary frequency Musculoskeletal: Reports gait dysfunction, Reports muscle weakness, Reports myalgias, Denies frequent falls Integumentary: Denies pruritus, Denies rash, Denies wounds Neurological: Reports weakness, Denies aphasia, Denies change in mentation, Denies change in speech, Denies confusion, Denies numbness, Denies seizures, Denies vertigo Psychiatric: Denies anxiety, Denies depression Endocrine: Reports fatigue, Denies weight change Past Medical History Past Medical History: Heart Failure, CVA/TIA, Diabetes Mellitus, Hypertension, Renal Disease Additional Past Medical History / Comment(s): TIAs 4 with previous TIA 18 months ago. Motor seizures left leg anemic, irregular heart beat; murmur History of Any Multi-Drug Resistant Organisms: None Reported Past Surgical History: Appendectomy, Hysterectomy, Orthopedic Surgery Additional Past Surgical History / Comment(s): left knee arthroscopy, cyst removal (pilonidal cyst) Past Anesthesia/Blood Transfusion Reactions: No Reported Reaction Past Psychological History: Anxiety Smoking Status: Never smoker Past Alcohol Use History: None Reported Additional Past Alcohol Use History / Comment(s): Patient is a lifelong nonsmoker, no illicit drug use, no alcohol use. Past Drug Use History: None Reported - Past Family History Father Family Medical History: Congestive Heart Failure (CHF) Additional Family Medical History / Comment(s): Father at age 65 from heart failure. Mother Family Medical History: Congestive Heart Failure (CHF) Additional Family Medical History / Comment(s): Mother at age 92 from heart failure and had previous history of coronary artery disease with several MIs. Sister(s) Family Medical History: Cancer Additional Family Medical History / Comment(s): The patient has 2 sisters. One is stage IV breast cancer survivor and history of diverticulitis. Second sister has many medical problems. Son(s) Family Medical History: Hypertension Brother(s) Additional Family Medical History / Comment(s): The patient has 2 brothers and both are . One from aspiration pneumonia with history of stomach cancer. A second brother from melanoma. Medications and Allergies Home Medications Medication Instructions Recorded Confirmed Type Cyanocobalamin [Vitamin B-12] 500 mcg PO DAILY@1700 04/23/14 06/05/19 History Pravastatin Sodium [Pravachol] 20 mg PO HS@2100 04/23/14 06/05/19 History Acetaminophen Tab [Tylenol] 650 mg PO Q6H PRN 05/20/19 06/05/19 History Albuterol Nebulized [Ventolin 2.5 mg INHALATION RT-Q4H PRN 05/20/19 06/05/19 History Nebulized] Apixaban [Eliquis] 5 mg PO BID@0800,17005/20/19 06/05/19 History Budesonide 1 mg INHALATION RT-BID@0800,17005/20/19 06/05/19 History Divalproex Sodium [Depakote 500 mg PO DAILY@0805/20/19 06/05/19 History Sprinkle] Famotidine [Pepcid] 20 mg PO DAILY@0805/20/19 06/05/19 History Ferrous Sulfate [Iron (65 MG 325 mg PO BID@0800,1700 05/20/19 06/05/19 History Elemental)] Furosemide [Lasix] 20 mg PO DAILY@0605/20/19 06/05/19 History Insulin Glargine [Lantus] 12 unit SQ HS@2130 05/20/19 06/05/19 History Levothyroxine Sodium 112 mcg PO DAILY@0605/20/19 06/05/19 History Lisinopril [Prinivil] 5 mg PO DAILY@0800 05/20/19 06/05/19 History Magnesium Oxide 400 mg PO DAILY@1700 05/20/19 06/05/19 History Melatonin 10 mg PO HS@2100 05/20/19 06/05/19 History Sertraline [Zoloft] 50 mg PO DAILY@0800 05/20/19 06/05/19 History Sucralfate [Carafate] 1 gm PO ACHS 05/20/19 06/05/19 History ALPRAZolam [Xanax] 0.25 mg PO BID PRN #6 tab 05/25/19 06/05/19 Rx Bisacodyl [Dulcolax] 10 mg RECTAL DAILY PRN 06/05/19 06/05/19 History Glucerna Shake 1 can PO TID@0800,1200,1700 06/05/19 06/05/19 History Insulin Lispro [humaLOG Kwikpen] 5 unit SQ TID@0700,1100,1730 06/05/19 06/05/19 History Ipratropium-Albuterol Nebulize 3 ml INHALATION RT-QID 06/05/19 06/05/19 History [Duoneb 0.5 mg-3 mg/3 ml Soln] Levofloxacin [Levaquin] 250 mg PO DAILY@0800 06/05/19 06/05/19 History Magnesium Hydroxide [Milk of 7,200 mg PO DAILY PRN 06/05/19 06/05/19 History Magnesia Concentrate] Na Phos,M-B/Na Phos,Di-Ba [Fleet 133 ml RECTAL DAILY PRN 06/05/19 06/05/19 History Adult] Sennosides-Docusate Sodium 1 tab PO BID@0800,1700 06/05/19 06/05/19 History [Senokot-S] Allergies Allergy/AdvReac Type Severity Reaction Status Date / Time doxycycline calcium Allergy Anaphylaxis Verified 06/05/19 20:52 [From Vibramycin] doxycycline hyclate Allergy Anaphylaxis Verified 06/05/19 20:52 [From Vibramycin] doxycycline monohydrate Allergy Anaphylaxis Verified 06/05/19 20:52 [From Vibramycin] erythromycin base Allergy Anaphylaxis Verified 06/05/19 20:52 Iodinated Contrast- Oral and Allergy Anaphylaxis Verified 06/05/19 20:52 IV Dye [Iodinated Contrast Media - IV Dye] Physical Exam Vitals: Vital Signs Temp Pulse Pulse Resp BP BP Pulse Ox 06/06/19 08:00 98.2 F 83 18 112/64 100 06/06/19 07:03 92 06/06/19 06:51 88 06/06/19 04:00 98.2 F 88 20 142/62 98 06/05/19 23:23 98.6 F 91 22 155/70 100 06/05/19 23:12 78 18 120/64 98 06/05/19 21:42 98.8 F 79 18 117/52 99 06/05/19 20:17 22 06/05/19 20:07 99.2 F 95 22 117/52 98 Intake and Output 06/05/19 06/06/19 06/06/19 22:59 06:59 14:59 Other: # Voids 1 Weight 56.699 kg 65 kg Gen: This is a 78-year-old obese female. HEENT: Head is atraumatic, normocephalic. Pupils equal, round. Sclerae is anicteric. NECK: Supple. No JVD. No lymphadenopathy. No thyromegaly. LUNGS: Diminished bilaterally with rales and scattered rhonchi.. No intercostal retractions. HEART: Regular rate and rhythm. Systolic murmur. ABDOMEN: Soft. Bowel sounds are present. No masses. No tenderness. EXTREMITIES: No pedal edema. No calf tenderness. NEUROLOGICAL: Patient is awake, alert and oriented x3. Cranial nerves 2 through 12 are grossly intact. Results CBC & Chem 7: 06/05/19 20:30 06/05/19 20:30 Labs: Abnormal Lab Results - Last 24 Hours (Table) 06/05/19 06/05/19 06/05/19 Range/Units 20:30 20:30 20:30 RBC 2.72 L (3.80-5.40) m/uL Hgb 7.7 L (11.4-16.0) gm/dL Hct 24.9 L (34.0-46.0) % RDW 17.6 H (11.5-15.5) % Lymphocytes # 0.5 L (1.0-4.8) k/uL APTT 33.3 H (22.0-30.0) sec BUN 43 H (7-17) mg/dL Creatinine 1.51 H (0.52-1.04) mg/dL Glucose 273 H (74-99) mg/dL POC Glucose (mg/dL) (75-99) mg/dL Plasma Lactic Acid Cam (0.7-2.0) mmol/L Total Bilirubin 0.1 L (0.2-1.3) mg/dL AST 13 L (14-36) U/L Total Protein 5.5 L (6.3-8.2) g/dL Albumin 2.9 L (3.5-5.0) g/dL 06/05/19 06/06/19 06/06/19 Range/Units 20:30 00:28 06:16 RBC (3.80-5.40) m/uL Hgb (11.4-16.0) gm/dL Hct (34.0-46.0) % RDW (11.5-15.5) % Lymphocytes # (1.0-4.8) k/uL APTT (22.0-30.0) sec BUN (7-17) mg/dL Creatinine (0.52-1.04) mg/dL Glucose (74-99) mg/dL POC Glucose (mg/dL) 222 H 169 H (75-99) mg/dL Plasma Lactic Acid Cam 2.4 H* (0.7-2.0) mmol/L Total Bilirubin (0.2-1.3) mg/dL AST (14-36) U/L Total Protein (6.3-8.2) g/dL Albumin (3.5-5.0) g/dL Thrombosis Risk Factor Assmnt - DVT/VTE Prophylaxis DVT/VTE Prophylaxis: Pharmacologic Prophylaxis ordered - Choose All That Apply Any of the Below Risk Factors Present?: Yes Each Risk Factor Represents 3 Points: Age 75 years or older Thrombosis Risk Factor Assessment Total Risk Factor Score: 3 Thrombosis Risk Factor Assessment Level: Moderate Risk Assessment and Plan Plan: 1. Acute respiratory distress secondary to pneumonia, failed outpatient treatment, hypersensitivity pneumonitis, and bilateral pleural effusions. Continue DuoNeb treatments 4 times daily, Pulmicort 1 mg twice daily, Lasix 40 mg oral every 8 hours, Levaquin 750 mg daily, Zosyn 3.375 g every 8 hours. Consult with pulmonary medicine appreciated. CT of the chest as above. 2. Chronic hypoxic respiratory failure on home O2. Continue oxygen therapy. 3. Diabetes mellitus type 2, uncontrolled with hyperglycemia. Continue Levemir 12 units at bedtime and NovoLog scale before meals and at bedtime. 4. Hypertension. Continue lisinopril 5 mg daily 5. Atrial fibrillation, paroxysmal. Continue eliquis. 6. Chronic kidney disease stage III. 7. Generalized anxiety disorder and recurrent depression. Continue Xanax 0.25 mg twice daily as needed and Zoloft 50 mg daily. 8. 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 9. Anemia of chronic disease. Monitor hemoglobin. No active bleeding. 10. Hypothyroidism. Continue levothyroxine 112 g daily. 11. Hyperlipidemia. Continue pravastatin 20 mg at bedtime. 12. GI prophylaxis and gastroesophageal reflux disease. Continue Carafate. 13. DVT prophylaxis. Continue eliquis. Patient will be admitted to the hospital for a minimum of 2 night stay. Discharge plan: Return to [facility] under the care of Dr. Mills Impression and plan of care have been directed as dictated by the signing physician. Nubia Caruso nurse practitioner acting as scribe for signing physician.
--- NOTE | 2019-06-06 15:45 | P.CNPUL ---
History of Present Illness Consult date: 06/06/19 Reason for consult: pleural effusion Chief complaint: Shortness of breath History of present illness: This is a 78-year-old female with history of multiple medical problems including chronic kidney disease stage III, chronic hypoxic respiratory failure, on home O2, chronic atrial fibrillation, hypertension, seizure disorder, generalized anxiety disorder, history of recurrent episodes of chronic diastolic congestive heart failure, history of moderate pulmonary hypertension, right-sided pressures in the range of 56, history of concentric left ventricular hypertrophy, good ejection fraction on previous echocardiography, history of paroxysmal atrial fibrillation, patient was admitted to [facility] couple of weeks ago, and she was seen by Dr. Kelley on consultation. At that time she had left apical pneumothorax which was most likely iatrogenic secondary to recent a left sided thoracentesis. Patient was admitted this time with mostly few days history of increased shortness of breath, exacerbated by laying flat. She also had low-grade fever, no chills, no hemoptysis, and no clear-cut evidence of pneumonia on admission. She did have bilateral pleural effusions, hence of this consult was initiated. Patient was placed on Lasix, DuoNeb updrafts, Levaquin and Zosyn, and after reviewing her chest x-ray and CT of the chest, I felt that there is no immediate need for thoracentesis, patient will likely respond to diuretics. Her CBC was basically normal except for a low hemoglobin of 7.7. Electrolytes are normal. BUN is 43 creatinine is 1.51. Review of Systems Constitutional: Patient is complaining mostly of weakness fatigue malaise, no chills, low-grade fever, Ears, nose, mouth and throat: Denies any earache, no sore throat, nasal congestion. Cardiovascular: Complains of shortness of breath possibly which she lays flat, no chest pain, no palpitations. Respiratory: Shortness of breath mostly with any activity and especially when she lays flat. Gastrointestinal: Denies nausea vomiting abdominal pain melena or hematemesis. Genitourinary: Denies dysuria, hematuria, frequency or urgency. Musculoskeletal: Patient complains of gait dysfunction. And generalized muscle weakness. Integumentary: Denies rashes, denies any itching. Neurological: Complains of generalized weakness. Psychiatric: Denies any symptoms of active depression. Endocrine: Denies any heat or cold intolerance. Past Medical History Past Medical History: Heart Failure, CVA/TIA, Diabetes Mellitus, Hypertension, Renal Disease Additional Past Medical History / Comment(s): TIAs 4 with previous TIA 18 months ago. Motor seizures left leg anemic, irregular heart beat; murmur History of Any Multi-Drug Resistant Organisms: None Reported Past Surgical History: Appendectomy, Hysterectomy, Orthopedic Surgery Additional Past Surgical History / Comment(s): left knee arthroscopy, cyst removal (pilonidal cyst) Past Anesthesia/Blood Transfusion Reactions: No Reported Reaction Past Psychological History: Anxiety Smoking Status: Never smoker Past Alcohol Use History: None Reported Additional Past Alcohol Use History / Comment(s): Patient is a lifelong nonsmoker, no illicit drug use, no alcohol use. Past Drug Use History: None Reported - Past Family History Brother(s) Additional Family Medical History / Comment(s): The patient has 2 brothers and both are . One from aspiration pneumonia with history of stomach cancer. A second brother from melanoma. Father Family Medical History: Congestive Heart Failure (CHF) Additional Family Medical History / Comment(s): Father at age 65 from heart failure. Mother Family Medical History: Congestive Heart Failure (CHF) Additional Family Medical History / Comment(s): Mother at age 92 from heart failure and had previous history of coronary artery disease with several MIs. Sister(s) Family Medical History: Cancer Additional Family Medical History / Comment(s): The patient has 2 sisters. One is stage IV breast cancer survivor and history of diverticulitis. Second sister has many medical problems. Son(s) Family Medical History: Hypertension Medications and Allergies Home Medications Medication Instructions Recorded Confirmed Type Cyanocobalamin [Vitamin B-12] 500 mcg PO DAILY@1700 04/23/14 06/05/19 History Pravastatin Sodium [Pravachol] 20 mg PO HS@2100 04/23/14 06/05/19 History Acetaminophen Tab [Tylenol] 650 mg PO Q6H PRN 05/20/19 06/05/19 History Albuterol Nebulized [Ventolin 2.5 mg INHALATION RT-Q4H PRN 05/20/19 06/05/19 History Nebulized] Apixaban [Eliquis] 5 mg PO BID@0800,1700 05/20/19 06/05/19 History Budesonide 1 mg INHALATION RT-BID@0800,1700 05/20/19 06/05/19 History Divalproex Sodium [Depakote 500 mg PO DAILY@0800 05/20/19 06/05/19 History Sprinkle] Famotidine [Pepcid] 20 mg PO DAILY@0800 05/20/19 06/05/19 History Ferrous Sulfate [Iron (65 MG 325 mg PO BID@0800,1700 05/20/19 06/05/19 History Elemental)] Furosemide [Lasix] 20 mg PO DAILY@0600 05/20/19 06/05/19 History Insulin Glargine [Lantus] 12 unit SQ HS@2130 05/20/19 06/05/19 History Levothyroxine Sodium 112 mcg PO DAILY@0605/20/19 06/05/19 History Lisinopril [Prinivil] 5 mg PO DAILY@0800 05/20/19 06/05/19 History Magnesium Oxide 400 mg PO DAILY@1700 05/20/19 06/05/19 History Melatonin 10 mg PO HS@2100 05/20/19 06/05/19 History Sertraline [Zoloft] 50 mg PO DAILY@0800 05/20/19 06/05/19 History Sucralfate [Carafate] 1 gm PO ACHS 05/20/19 06/05/19 History ALPRAZolam [Xanax] 0.25 mg PO BID PRN #6 tab 05/25/19 06/05/19 Rx Bisacodyl [Dulcolax] 10 mg RECTAL DAILY PRN 06/05/19 06/05/19 History Glucerna Shake 1 can PO TID@0800,1200,1700 06/05/19 06/05/19 History Insulin Lispro [humaLOG Kwikpen] 5 unit SQ TID@0700,1100,1730 06/05/19 06/05/19 History Ipratropium-Albuterol Nebulize 3 ml INHALATION RT-QID 06/05/19 06/05/19 History [Duoneb 0.5 mg-3 mg/3 ml Soln] Levofloxacin [Levaquin] 250 mg PO DAILY@0800 06/05/19 06/05/19 History Magnesium Hydroxide [Milk of 7,200 mg PO DAILY PRN 06/05/19 06/05/19 History Magnesia Concentrate] Na Phos,M-B/Na Phos,Di-Ba [Fleet 133 ml RECTAL DAILY PRN 06/05/19 06/05/19 History Adult] Sennosides-Docusate Sodium 1 tab PO BID@0800,1700 06/05/19 06/05/19 History [Senokot-S] Allergies Allergy/AdvReac Type Severity Reaction Status Date / Time doxycycline calcium Allergy Anaphylaxis Verified 06/05/19 20:52 [From Vibramycin] doxycycline hyclate Allergy Anaphylaxis Verified 06/05/19 20:52 [From Vibramycin] doxycycline monohydrate Allergy Anaphylaxis Verified 06/05/19 20:52 [From Vibramycin] erythromycin base Allergy Anaphylaxis Verified 06/05/19 20:52 Iodinated Contrast- Oral and Allergy Anaphylaxis Verified 06/05/19 20:52 IV Dye [Iodinated Contrast Media - IV Dye] Physical Exam Vitals: Vital Signs Temp Pulse Pulse Resp BP BP Pulse Ox 06/06/19 12:00 18 06/06/19 11:38 98.3 F 87 18 122/69 100 06/06/19 10:45 88 06/06/19 10:36 84 06/06/19 08:00 98.2 F 83 18 112/64 100 06/06/19 07:03 92 06/06/19 06:51 88 06/06/19 04:00 98.2 F 88 20 142/62 98 06/05/19 23:23 98.6 F 91 22 155/70 100 06/05/19 23:12 78 18 120/64 98 06/05/19 21:42 98.8 F 79 18 117/52 99 06/05/19 20:17 22 06/05/19 20:07 99.2 F 95 22 117/52 98 Intake and Output 06/06/19 06/06/19 06/06/19 06:59 14:59 22:59 Output Total 750 Balance -750 Output: Urine 750 Other: # Voids 1 Weight 65 kg 65 kg Physical Exam: Revealed a 78-year-old female in no distress. Head: Atraumatic, normocephalic. HEENT:[Neck is supple.] [No neck masses.] [No thyromegaly.] [No JVD.] PERRLA, EOMI, no icterus. Chest: [Symmetrical chest expansion, diminished breath sounds at the bases, dullness at the bases especially on the left side..] Cardiac Exam: [Normal S1 and S2, no S3 gallop, 2/6 systolic murmur thought the precordium. Abdomen: [Soft, nontender, no megaly, no rebound, no guarding, normal bowel sounds.] Extremities: [No clubbing, no edema, no cyanosis.] Neurological Exam: Alert and oriented 3. [No focal neurologic deficit.] Psychiatric: Normal, affect and normal mental status examination. Skin: No rashes. Lymphatics: No lymphadenopathy. Results - Laboratory Findings CBC and BMP: 06/05/19 20:30 06/05/19 20:30 PT/INR, D-dimer PT 10.2 sec (9.0-12.0) 06/05/19 20:30 INR 0.9 (<1.2) 06/05/19 20:30 Abnormal lab findings: Abnormal Labs 06/05/19 06/05/19 06/05/19 20:30 20:30 20:30 RBC 2.72 L Hgb 7.7 L Hct 24.9 L RDW 17.6 H Lymphocytes # 0.5 L APTT 33.3 H BUN 43 H Creatinine 1.51 H Glucose 273 H POC Glucose (mg/dL) Hemoglobin A1c Plasma Lactic Acid Cam Total Bilirubin 0.1 L AST 13 L Total Protein 5.5 L Albumin 2.9 L 06/05/19 06/06/19 06/06/19 20:30 00:28 06:16 RBC Hgb Hct RDW Lymphocytes # APTT BUN Creatinine Glucose POC Glucose (mg/dL) 222 H 169 H Hemoglobin A1c Plasma Lactic Acid Cam 2.4 H* Total Bilirubin AST Total Protein Albumin 06/06/19 06/06/19 06/06/19 07:22 09:26 11:53 RBC Hgb Hct RDW Lymphocytes # APTT BUN Creatinine Glucose POC Glucose (mg/dL) 236 H 220 H Hemoglobin A1c 7.0 H Plasma Lactic Acid Cam Total Bilirubin AST Total Protein Albumin - Diagnostic Findings CT scan - chest: image reviewed (Bilateral pleural effusions noted, adjacent atelectasis, old granulomatous disease is suspected. Nonspecific adenopathy noted. Subpleural nodule noted along the right hemidiaphragm, nonspecific, however may need outpatient follow-up) Assessment and Plan Assessment: Impression: 1 acute on chronic diastolic congestive heart failure, no clear-cut evidence of pneumonia. 2 bilateral pleural effusions secondary to chronic diastolic congestive heart failure 3 acute on chronic hypoxic respiratory failure 4 type 2 diabetes 5 benign essential hypertension 6 paroxysmal atrial fibrillation 7 chronic kidney disease stage III, 8 generalized anxiety disorder 9 anemia of chronic disease 10 hypothyroidism 11 possible underlying COPD hence we will continue bronchodilators for now. Including DuoNeb and Pulmicort. Recommendation: Suggest stopping antibiotics, continue diuretics, follow-up chest x-ray after a good course of diuresis, however if the patient does not improve with diuretics, then I would consider thoracentesis. No need to parekh into thoracentesis at this point, since the patient may respond to diuretics. We'll continue to follow. Again strongly doubt pneumonia. Time with Patient: Greater than 30
[2019-06-06] MEDS: CYANOCOBALAMIN 500 MCG TAB PO SCH (16:45)
[2019-06-06] MEDS: MAGNESIUM OXIDE 400 MG TAB PO SCH (16:45)
[2019-06-06 16:55] LABS: Glucose,Whole Blood 253 mg/dL (75-99)
[2019-06-06] MEDS: INSULIN ASPART (NovoLOG) 100 UNIT/ML VIAL SQ SCH ×2 (16:57→20:51)
[2019-06-06] MEDS: MELATONIN 5 MG TABLET PO SCH (20:31)
[2019-06-06] MEDS: PRAVASTATIN SODIUM 20 MG TAB PO SCH (20:31)
[2019-06-06 20:48] LABS: Glucose,Whole Blood 214 mg/dL (75-99)
[2019-06-06] MEDS: INSULIN DETEMIR (LEVEMIR) 100 UNIT/ML SYR SQ SCH (20:51)
[2019-06-07] MEDS: LEVOFLOXACIN 750MG-D5W PMX 750 MG in DEXTROSE/WATER 1 150ML.BAG IVPB SCH (02:55)
[2019-06-07] MEDS: LEVOTHYROXINE 112 MCG TAB PO SCH (06:07)
[2019-06-07] MEDS: SUCRALFATE 1 GM TAB PO SCH ×4 (06:07→20:31)
[2019-06-07 06:12] LABS: Glucose,Whole Blood 166 mg/dL (75-99)
[2019-06-07] MEDS: INSULIN ASPART (NovoLOG) 100 UNIT/ML VIAL SQ SCH ×4 (06:12→20:31)
--- NOTE | 2019-06-07 07:21 | XR ---
EXAMINATION TYPE: XR chest 1V portable DATE OF EXAM: 06/07/2019 COMPARISON: 06/05/2019 chest x-ray and 06/06/[address] HISTORY: Congestive heart failure and pleural effusions TECHNIQUE: Single frontal view of the chest is obtained. FINDINGS: There is slight improvement in degree of the right pleural effusion and stable left pleura l effusion, small on the right and moderate on the left with associated bibasilar airspace disease, l eft greater than right. There is an enlarged cardiac mediastinal silhouette that appears partially ob scured and overall similar to the prior exam. No new pneumothorax. No acute osseous pathology. 2 mm right midlung nodule is seen peripherally. IMPRESSION: 1. Slightly improved right small pleural effusion and stable moderate left pleural effusion with ass ociated bibasilar airspace disease. 2. Punctate right midlung 2 mm pulmonary nodule as seen on the recent chest CT of 06/06/2019. Three-mo nth follow-up chest CT was recommended for these on the prior CT.
[2019-06-07] MEDS: IPRATROPIUM-ALBUTEROL 3 ML NEB INHALATION SCH ×4 (08:27→20:24)
[2019-06-07] MEDS: BUDESONIDE 1 MG/2 ML NEBU INHALATION SCH ×2 (08:27→20:24)
[2019-06-07] MEDS: APIXABAN 5 MG TAB PO SCH ×2 (09:14→17:20)
[2019-06-07] MEDS: DIVALPROEX SPRINKLE 125 MG CAP.SPRINK PO SCH (09:14)
[2019-06-07] MEDS: FAMOTIDINE 20 MG TAB PO SCH (09:14)
[2019-06-07] MEDS: LISINOPRIL 5 MG TAB PO SCH (09:15)
[2019-06-07] MEDS: FERROUS SULFATE 325 MG TAB PO SCH ×2 (09:15→17:20)
[2019-06-07] MEDS: FUROSEMIDE 40 MG TAB PO SCH (09:15)
[2019-06-07] MEDS: PIPERACILLIN-TAZOBACTAM 3.375 GM in SODIUM CHLORIDE 0.9% 100 ML IVPB SCH (09:15)
[2019-06-07] MEDS: SERTRALINE 50 MG TAB PO SCH (09:15)
[2019-06-07] MEDS: SENNOSIDES-DOCUSATE SODIUM 1 EACH TAB PO SCH ×2 (09:15→17:20)
[2019-06-07] MEDS: ALPRAZolam 0.25 MG TAB PO PRN (10:54)
--- NOTE | 2019-06-07 12:06 | P.PN ---
Subjective Progress Note Date: 06/07/19 Principal diagnosis: Acute on chronic diastolic congestive heart failure, no clear-cut evidence of pneumonia This is a 78-year-old female with history of multiple medical problems including chronic kidney disease stage III, chronic hypoxic respiratory failure, on home O2, chronic atrial fibrillation, hypertension, seizure disorder, generalized anxiety disorder, history of recurrent episodes of chronic diastolic congestive heart failure, history of moderate pulmonary hypertension, right-sided pressures in the range of 56, history of concentric left ventricular hypertrophy, good ejection fraction on previous echocardiography, history of paroxysmal atrial fibrillation, patient was admitted to [facility] couple of weeks ago, and she was seen by Dr. Kelley on consultation. At that time she had left apical pneumothorax which was most likely iatrogenic secondary to recent a left sided thoracentesis. Patient was admitted this time with mostly few days history of increased shortness of breath, exacerbated by laying flat. She also had low-grade fever, no chills, no hemoptysis, and no clear-cut evidence of pneumonia on admission. She did have bilateral pleural effusions, hence of this consult was initiated. Patient was placed on Lasix, DuoNeb updrafts, Levaquin and Zosyn, and after reviewing her chest x-ray and CT of the chest, I felt that there is no immediate need for thoracentesis, patient will likely respond to diuretics. Her CBC was basically normal except for a low hemoglobin of 7.7. Electrolytes are normal. BUN is 43 creatinine is 1.51. On 06/07/2017 patient seen in follow-up on selective care unit, she is awake and alert, in no acute distress, she sits up in the recliner, no shortness of breath, currently on 2 L of oxygen with a pulse ox of 100%, she is afebrile, lung sounds reveal diminished breath sounds bilaterally, left greater than the right, follow-up chest x-ray showed slightly improved right small pleural effusion and stable moderate left pleural effusion with associated bibasilar airspace disease. There is a punctate right midlung 2 mm pulmonary nodule, with a 3 months follow-up recommendation. Otherwise no acute issues overnight, no specific complaints. She remains on diuretics, on Lasix, 40 mg every 8 hours, he is diuresing, she is in -2230 mL or less 24 hours. Objective - Vital Signs Vital signs: Vital Signs Temp 97.6 F 07/30/19 08:00 Pulse 84 06/07/19 11:46 Resp 16 06/07/19 11:32 BP 166/58 06/07/19 08:00 Pulse Ox 100 06/07/19 08:00 Intake & Output 06/06/19 06/07/19 06/07/19 18:59 06:59 18:59 Intake Total 240 180 240 Output Total 750 1900 Balance -510 -1720 240 Weight 65 kg 63.5 kg Intake: IV 80 0.9 80 Intake, IV Titration 100 Amount Piperacillin-Tazobactam 3 100 .375 gm In Sodium Chloride 0.9% 100 ml @ 200 mls/hr IVPB Q8HR [facility] Rx#:[id number] Oral 240 240 Output: Urine 750 1900 Other: # Voids 1 - Exam GENERAL EXAM: Alert, pleasant, 78-year-old white female, comfortable in no apparent distress. HEAD: Normocephalic/atraumatic. EYES: Normal reaction of pupils, equal size. Conjunctiva pink, sclera white. NOSE: Clear with pink turbinates. THROAT: No erythema or exudates. NECK: No masses, no JVD, no thyroid enlargement, no adenopathy. CHEST: No chest wall deformity. Symmetrical expansion. LUNGS: Equal air entry with diminished breath sounds at the bases, with dullness to percussion, left greater than the right CVS: Regular rate and rhythm, normal S1 and S2, no gallops, no murmurs, no rubs ABDOMEN: Soft, nontender. No hepatosplenomegaly, normal bowel sounds, no guarding or rigidity. EXTREMITIES: No clubbing, no edema, no cyanosis, 2+ pulses and upper and lower extremities. MUSCULOSKELETAL: Muscle strength and tone normal. SPINE: No scoliosis or deformity SKIN: No rashes CENTRAL NERVOUS SYSTEM: Alert and oriented -3. No focal deficits, tone is normal in all 4 extremities. PSYCHIATRIC: Alert and oriented -3. Appropriate affect. Intact judgment and insight. - Labs CBC & Chem 7: 06/05/19 20:30 06/05/19 20:30 Labs: Abnormal Lab Results - Last 24 Hours (Table) 06/06/19 06/06/19 06/06/19 Range/Units 07:22 07:22 11:53 POC Glucose (mg/dL) 220 H (75-99) mg/dL Hemoglobin A1c 7.0 H (4.0-6.0) % Procalcitonin 0.18 H (0.02-0.09) ng/mL 06/06/19 06/06/19 06/07/19 Range/Units 16:54 20:45 06:10 POC Glucose (mg/dL) 253 H 214 H 166 H (75-99) mg/dL Hemoglobin A1c (4.0-6.0) % Procalcitonin (0.02-0.09) ng/mL Microbiology - Last 24 Hours (Table) 06/05/19 20:30 Blood Culture - Preliminary Blood No Growth after 24 hours Assessment and Plan Plan: Assessment: 1 acute on chronic diastolic congestive heart failure, no clear-cut evidence of pneumonia. 2 bilateral pleural effusions secondary to chronic diastolic congestive heart failure 3 acute on chronic hypoxic respiratory failure 4 type 2 diabetes 5 benign essential hypertension 6 paroxysmal atrial fibrillation 7 chronic kidney disease stage III, 8 generalized anxiety disorder 9 anemia of chronic disease 10 hypothyroidism 11 possible underlying COPD hence we will continue bronchodilators for now. Including DuoNeb and Pulmicort. Plan: Continue the IV diuretics, today's follow-up chest x-ray has been reviewed, showing slight improvement in the appearance of the right-sided small pleural effusion, and at least size left pleural effusion remains stable, however patient is breathing is improved. Weaning FiO2, encourage deep breathing and coughing, incentive spirometry use. Vital signs are stable. No plans for thoracentesis at this time, unless her breathing worsens. Pro-calcitonin level is low at 0.18, making the likelihood of bacterial infection unlikely, and we will stop the antibiotics. We'll continue to follow I performed a history & physical examination of the patient and discussed their management with my nurse practitioner, Amelia Springer. I reviewed the nurse practitioner's note and agree with the documented findings and plan of care. Lung sounds are positive for diminished breath sounds. The findings and the impression was discussed with the patient. I attest to the documentation by the nurse practitioner. Time with Patient: Less than 30
[2019-06-07 12:09] LABS: Glucose,Whole Blood 199 mg/dL (75-99)
--- NOTE | 2019-06-07 14:53 | P.PN ---
Subjective Progress Note Date: 06/07/19 This is a 78-year-old female patient of Dr. Mills currently at [facility] with past medical history of chronic kidney disease stage III, atrial fibrillation, chronic hypoxic respiratory failure on home O2, diabetes mellitus type 2, history of TIA, hypertension, seizure disorder without any recent s eizure activity, generalized anxiety disorder and recurrent depression. Patient states she developed shortness of breath and difficulty breathing. She states she does not have much cough. No lower extremity edema. She does have pain with deep breathing. When she is flat she has increased shortness of breath. She complains of fever. She denies any sick contacts such as her roommate. She was started on Levaquin for pneumonia 6 days ago without significant improvement. She was also taken off Lasix 2 days ago due to increasing creatinine. Patient came into [facility] emergency center for evaluation. Patient was afebrile, blood pressure 117/52, pulse ox 98% on O2, pulse 95, respiratory rate 22. WBC normal at 9.1, hemoglobin 7.7 and patient seems to run at 9.6, BUN 43 and creatinine 1.51 with baseline of 1.2-1.3. Blood sugar 273. ProBNP 9790, albumin 2.9. Chest x-ray reveals cardiomegaly with bilateral pleural effusion and associated atelectasis versus pneumonia. Patient was given 1 dose of IV Lasix, started on DuoNeb treatments, Levaquin, Zosyn and consult added for pulmonary medicine, Dr. Abreu. CT of the chest shows small to moderate bilateral pleural effusions. Adjacent atelectatic collapse left lower lobe and involving half of the right lower lobe. Prior granulomatous disease. Numerous 3 mm nodules within the right lung may also reflect prior granulomatous disease or other infectious or inflammatory process. One larger 1 cm subpleural nodule along the right hemidiaphragm could represent nodular atelectasis and should be reassessed. A 1.5 cm large right tracheobronchial lymph node may be reactive. 06/07: Repeat chest x-ray reveals slightly improved right small pleural effusion and stable moderate left pleural effusion with associated bibasilar airspace disease. Punctate right midlung 2 mm pulmonary nodule as seen on the recent CAT scan. 3 month follow-up was recommended. Patient will be changed to IV Lasix 40 mg every 8 hours. Patient remains afebrile, heart rate 84, blood pressure 106/57, pulse ox 100% on 2 L nasal cannula. Pro-calcitonin 0.18. Repeat lactic acid 1.8. Stool for occult blood was negative. Patient is found sitting in a chair. She has attempted to work with physical therapy but is limited with generalized weakness. Dr. Abreu and does not plan for thoracentesis. Antibiotics discontinued. Objective - Vital Signs Vital signs: Vital Signs Temp 97.6 F 06/07/19 08:00 Pulse 84 06/07/19 12:00 Resp 16 06/07/19 12:00 BP 106/57 06/07/19 12:00 Pulse Ox 100 06/07/19 12:00 Intake & Output 06/06/19 06/07/19 06/07/19 18:59 06:59 18:59 Intake Total 240 180 240 Output Total 750 1900 Balance -510 -1720 240 Weight 65 kg 63.5 kg Intake: IV 80 0.9 80 Intake, IV Titration 100 Amount Piperacillin-Tazobactam 3 100 .375 gm In Sodium Chloride 0.9% 100 ml @ 200 mls/hr IVPB Q8HR [facility] Rx#:[id number] Oral 240 240 Output: Urine 750 1900 Other: # Voids 1 - Exam Review of Systems Constitutional: Reports chills, Reports continued fatigue, Reports fever, Reports poor appetite, Reports weakness Ears, nose, mouth and throat: Denies dysphagia, Denies nasal congestion, Denies nasal discharge, Denies vertigo Cardiovascular: Reports chest pain, Reports decreased exercise tolerance, Reports dyspnea on exertion, Reports shortness of breath, Denies edema, Denies leg edema, Denies lightheadedness Respiratory: Reports cough, Reports dyspnea, Reports respiratory infections, Reports wheezing, Denies cough with sputum, Denies excessive sputum, Denies hemoptysis Gastrointestinal: Denies abdominal pain, Denies constipation, Denies dyspepsia, Denies loss of appetite, Denies nausea, Denies vomiting Genitourinary: Denies dysuria, Denies urgency, Denies urinary frequency Musculoskeletal: Reports gait dysfunction, Reports muscle weakness, Reports myalgias, Denies frequent falls Integumentary: Denies pruritus, Denies rash, Denies wounds Neurological: Reports weakness, Denies aphasia, Denies change in mentation, Denies change in speech, Denies confusion, Denies numbness, Denies seizures, Denies vertigo Psychiatric: Denies anxiety, Denies depression Endocrine: Reports fatigue, Denies weight change Gen: This is a 78-year-old obese female. Patient is resting comfortably in chair. HEENT: Head is atraumatic, normocephalic. Pupils equal, round. Sclerae is anicteric. NECK: Supple. No JVD. No lymphadenopathy. No thyromegaly. LUNGS: Diminished bilaterally with rales and scattered rhonchi.. No intercostal retractions. HEART: Regular rate and rhythm. Systolic murmur. ABDOMEN: Soft. Bowel sounds are present. No masses. No tenderness. EXTREMITIES: No pedal edema. No calf tenderness. NEUROLOGICAL: Patient is awake, alert and oriented x3. Cranial nerves 2 through 12 are grossly intact. - Labs CBC & Chem 7: 06/05/19 20:30 06/05/19 20:30 Labs: Abnormal Lab Results - Last 24 Hours (Table) 06/06/19 06/06/19 06/06/19 Range/Units 07:22 07:22 16:54 POC Glucose (mg/dL) 253 H (75-99) mg/dL Hemoglobin A1c 7.0 H (4.0-6.0) % Procalcitonin 0.18 H (0.02-0.09) ng/mL 06/06/19 06/07/19 06/07/19 Range/Units 20:45 06:10 12:04 POC Glucose (mg/dL) 214 H 166 H 199 H (75-99) mg/dL Hemoglobin A1c (4.0-6.0) % Procalcitonin (0.02-0.09) ng/mL Microbiology - Last 24 Hours (Table) 06/05/19 20:30 Blood Culture - Preliminary Blood No Growth after 24 hours Assessment and Plan Plan: 1. Acute respiratory distress secondary bilateral pleural effusions. Continue DuoNeb treatments 4 times daily, Pulmicort 1 mg twice daily, Lasix 40 mg IV every 8 hours, antibiotics discontinued. Consult with pulmonary medicine appreciated. CT of the chest as above. Pneumonia ruled out. 2. Chronic hypoxic respiratory failure on home O2. Continue oxygen therapy. 3. Diabetes mellitus type 2, uncontrolled with hyperglycemia. Continue Levemir 12 units at bedtime and NovoLog scale before meals and at bedtime. 4. Hypertension. Continue lisinopril 5 mg daily 5. Atrial fibrillation, paroxysmal. Continue eliquis. 6. Chronic kidney disease stage III. 7. Generalized anxiety disorder and recurrent depression. Continue Xanax 0.25 mg twice daily as needed and Zoloft 50 mg daily. 8. 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 9. Anemia of chronic disease. Monitor hemoglobin. No active bleeding. 10. Hypothyroidism. Continue levothyroxine 112 g daily. 11. Hyperlipidemia. Continue pravastatin 20 mg at bedtime. 12. GI prophylaxis and gastroesophageal reflux disease. Continue Carafate. 13. DVT prophylaxis. Continue eliquis. Discharge plan: Return to [facility] under the care of Dr. Mills Impression and plan of care have been directed as dictated by the signing physician. Nubia Caruso nurse practitioner acting as scribe for signing mary hidalgo.
[2019-06-07 16:56] LABS: Glucose,Whole Blood 157 mg/dL (75-99)
[2019-06-07] MEDS: MAGNESIUM OXIDE 400 MG TAB PO SCH (17:20)
[2019-06-07] MEDS: CYANOCOBALAMIN 500 MCG TAB PO SCH (17:20)
[2019-06-07] MEDS: FUROSEMIDE 10 MG/ML 4 ML VIAL IV SCH ×2 (17:20→22:59)
[2019-06-07 20:22] LABS: Glucose,Whole Blood 158 mg/dL (75-99)
[2019-06-07] MEDS: PRAVASTATIN SODIUM 20 MG TAB PO SCH (20:31)
[2019-06-07] MEDS: MELATONIN 5 MG TABLET PO SCH (20:31)
[2019-06-07] MEDS: POTASSIUM CHLORIDE ER 20 MEQ TAB.ER PO SCH (20:31)
[2019-06-07] MEDS: INSULIN DETEMIR (LEVEMIR) 100 UNIT/ML SYR SQ SCH (20:37)
[2019-06-07] MEDS ORDERED: LEVOFLOXACIN 750 MG TAB PO SCH (22:00)
[2019-06-08] MEDS: ALPRAZolam 0.25 MG TAB PO PRN ×2 (02:20→21:10)
[2019-06-08 05:58] LABS: Glucose,Whole Blood 137 mg/dL (75-99)
[2019-06-08] MEDS: INSULIN ASPART (NovoLOG) 100 UNIT/ML VIAL SQ SCH ×4 (06:04→21:10)
[2019-06-08] MEDS: SUCRALFATE 1 GM TAB PO SCH ×4 (06:05→21:09)
[2019-06-08] MEDS: LEVOTHYROXINE 112 MCG TAB PO SCH (06:06)
[2019-06-08 07:30] LABS: Anisocytosis Slight; HGB 8.2 gm/dL (11.4-16.0); Hypochromasia Marked; MCH 27.5 pg (25.0-35.0); MCHC 29.4 g/dL (31.0-37.0); MCV 93.6 fL (80.0-100.0); Mean Platelet Volume 6.8; Platelet Count 352 k/uL (150-450); RBC 2.99 m/uL (3.80-5.40); RDW 17.5 % (11.5-15.5); WBC 6.6 k/uL (3.8-10.6)
[2019-06-08 07:44] LABS: Calcium 9.3 mg/dL (8.4-10.2)
[2019-06-08] MEDS: IPRATROPIUM-ALBUTEROL 3 ML NEB INHALATION SCH ×4 (09:08→20:26)
[2019-06-08] MEDS: BUDESONIDE 1 MG/2 ML NEBU INHALATION SCH ×2 (09:08→20:26)
[2019-06-08] MEDS: APIXABAN 5 MG TAB PO SCH ×2 (09:34→17:44)
[2019-06-08] MEDS: DIVALPROEX SPRINKLE 125 MG CAP.SPRINK PO SCH (09:34)
[2019-06-08] MEDS: LISINOPRIL 5 MG TAB PO SCH (09:35)
[2019-06-08] MEDS: SENNOSIDES-DOCUSATE SODIUM 1 EACH TAB PO SCH ×2 (09:35→17:44)
[2019-06-08] MEDS: FAMOTIDINE 20 MG TAB PO SCH (09:35)
[2019-06-08] MEDS: SERTRALINE 50 MG TAB PO SCH (09:35)
[2019-06-08] MEDS: FERROUS SULFATE 325 MG TAB PO SCH ×2 (09:35→17:44)
[2019-06-08] MEDS: POTASSIUM CHLORIDE ER 20 MEQ TAB.ER PO SCH ×2 (09:36→21:09)
[2019-06-08] MEDS: FUROSEMIDE 10 MG/ML 4 ML VIAL IV SCH (09:45)
[2019-06-08 12:14] LABS: Glucose,Whole Blood 242 mg/dL (75-99)
--- NOTE | 2019-06-08 12:25 | P.PN ---
Subjective Progress Note Date: 06/08/19 Principal diagnosis: Acute on chronic diastolic congestive heart failure, no clear-cut evidence of pneumonia This is a 78-year-old female with history of multiple medical problems including chronic kidney disease stage III, chronic hypoxic respiratory failure, on home O2, chronic atrial fibrillation, hypertension, seizure disorder, generalized anxiety disorder, history of recurrent episodes of chronic diastolic congestive heart failure, history of moderate pulmonary hypertension, right-sided pressures in the range of 56, history of concentric left ventricular hypertrophy, good ejection fraction on previous echocardiography, history of paroxysmal atrial fibrillation, patient was admitted to [facility] couple of weeks ago, and she was seen by Dr. Kelley on consultation. At that time she had left apical pneumothorax which was most likely iatrogenic secondary to recent a left sided thoracentesis. Patient was admitted this time with mostly few days history of increased shortness of breath, exacerbated by laying flat. She also had low-grade fever, no chills, no hemoptysis, and no clear-cut evidence of pneumonia on admission. She did have bilateral pleural effusions, hence of this consult was initiated. Patient was placed on Lasix, DuoNeb updrafts, Levaquin and Zosyn, and after reviewing her chest x-ray and CT of the chest, I felt that there is no immediate need for thoracentesis, patient will likely respond to diuretics. Her CBC was basically normal except for a low hemoglobin of 7.7. Electrolytes are normal. BUN is 43 creatinine is 1.51. On 06/07/2017 patient seen in follow-up on selective care unit, she is awake and alert, in no acute distress, she sits up in the recliner, no shortness of breath, currently on 2 L of oxygen with a pulse ox of 100%, she is afebrile, lung sounds reveal diminished breath sounds bilaterally, left greater than the right, follow-up chest x-ray showed slightly improved right small pleural effusion and stable moderate left pleural effusion with associated bibasilar airspace disease. There is a punctate right midlung 2 mm pulmonary nodule, with a 3 months follow-up recommendation. Otherwise no acute issues overnight, no specific complaints. She remains on diuretics, on Lasix, 40 mg every 8 hours, he is diuresing, she is in -2230 mL or less 24 hours. On 06/08/2019 patient seen in follow-up on selective care unit, she is to be fatigued, but in no acute distress, her breathing is improving, she states she was up all night going to the bathroom. Weight is down by 4.8 kg in the last 24 hours, she is in negative fluid balance. She is on Lasix 40 mg every 8 hours, and today's labs show worsening renal profile, B1 is 53 and creatinine is 1.7, she is on 2 L of oxygen with pulse ox of 99%, no fever chills, lung sounds reveal bilateral lower bases crackles, no cough or congestion, no new chest x- ray today, we'll switch the patient to oral Lasix today. Objective - Vital Signs Vital signs: Vital Signs Temp 97 F L 06/08/19 03:43 Pulse 68 06/08/19 11:52 Resp 18 06/08/19 03:44 BP 149/64 06/08/19 03:43 Pulse Ox 99 06/08/19 03:43 Intake & Output 06/07/19 06/08/19 06/08/19 18:59 06:59 18:59 Intake Total 700 240 Output Total 225 900 Balance 475 -900 240 Weight 56.7 kg Intake: Intake, IV Titration 100 Amount Piperacillin-Tazobactam 3 100 .375 gm In Sodium Chloride 0.9% 100 ml @ 200 mls/hr IVPB Q8HR [facility] Rx#:[id number] Oral 600 240 Output: Urine 225 900 Other: # Voids 1 1 - Exam GENERAL EXAM: Alert, pleasant, 78-year-old white female, comfortable in no apparent distress. HEAD: Normocephalic/atraumatic. EYES: Normal reaction of pupils, equal size. Conjunctiva pink, sclera white. NOSE: Clear with pink turbinates. THROAT: No erythema or exudates. NECK: No masses, no JVD, no thyroid enlargement, no adenopathy. CHEST: No chest wall deformity. Symmetrical expansion. LUNGS: Equal air entry with diminished breath sounds at the bases, with dullness to percussion, left greater than the right CVS: Regular rate and rhythm, normal S1 and S2, no gallops, no murmurs, no rubs ABDOMEN: Soft, nontender. No hepatosplenomegaly, normal bowel sounds, no guarding or rigidity. EXTREMITIES: No clubbing, no edema, no cyanosis, 2+ pulses and upper and lower extremities. MUSCULOSKELETAL: Muscle strength and tone normal. SPINE: No scoliosis or deformity SKIN: No rashes CENTRAL NERVOUS SYSTEM: Alert and oriented -3. No focal deficits, tone is normal in all 4 extremities. PSYCHIATRIC: Alert and oriented -3. Appropriate affect. Intact judgment and insight. - Labs CBC & Chem 7: 06/08/19 07:04 06/08/19 07:04 Labs: Abnormal Lab Results - Last 24 Hours (Table) 06/07/19 06/07/19 06/08/19 Range/Units 16:54 20:21 05:56 RBC (3.80-5.40) m/uL Hgb (11.4-16.0) gm/dL Hct (34.0-46.0) % MCHC (31.0-37.0) g/dL RDW (11.5-15.5) % Carbon Dioxide (22-30) mmol/L BUN (7-17) mg/dL Creatinine (0.52-1.04) mg/dL Glucose (74-99) mg/dL POC Glucose (mg/dL) 157 H 158 H 137 H (75-99) mg/dL 06/08/19 06/08/19 06/08/19 Range/Units 07:04 07:04 11:55 RBC 2.99 L (3.80-5.40) m/uL Hgb 8.2 L (11.4-16.0) gm/dL Hct 28.0 L (34.0-46.0) % MCHC 29.4 L (31.0-37.0) g/dL RDW 17.5 H (11.5-15.5) % Carbon Dioxide 31 H (22-30) mmol/L BUN 53 H (7-17) mg/dL Creatinine 1.70 H (0.52-1.04) mg/dL Glucose 131 H (74-99) mg/dL POC Glucose (mg/dL) 242 H (75-99) mg/dL Microbiology - Last 24 Hours (Table) 06/05/19 20:30 Blood Culture - Preliminary Blood No Growth after 48 hours Assessment and Plan Plan: Assessment: 1 acute on chronic diastolic congestive heart failure, no clear-cut evidence of pneumonia. 2 bilateral pleural effusions secondary to chronic diastolic congestive heart failure 3 acute on chronic hypoxic respiratory failure 4 type 2 diabetes 5 benign essential hypertension 6 paroxysmal atrial fibrillation 7 chronic kidney disease stage III, 8 generalized anxiety disorder 9 anemia of chronic disease 10 hypothyroidism 11 possible underlying COPD hence we will continue bronchodilators for now. Including DuoNeb and Pulmicort. Plan: Switch the IV Lasix to oral Lasix, fluid volume status is improving, patient is breathing easier, she is on home dose O2 at 2 L, her pulse ox is 99%, afebrile, renal profile slightly worse and on today's labs, we'll switch the patient to oral Lasix 40 mg twice daily. Antibiotics have been stopped yesterday, no fever or chills, from pulmonary perspective patient can be considered for discharge home I performed a history & physical examination of the patient and discussed their management with my nurse practitioner, Amelia Springer. I reviewed the nurse practitioner's note and agree with the documented findings and plan of care. Lung sounds are positive for diminished breath sounds. The findings and the impression was discussed with the patient. I attest to the documentation by the nurse practitioner. Time with Patient: Less than 30
--- NOTE | 2019-06-08 14:41 | P.PN ---
Subjective Progress Note Date: 06/08/19 This is a 78-year-old female patient of Dr. Mills currently at [facility] with past medical history of chronic kidney disease stage III, atrial fibrillation, chronic hypoxic respiratory failure on home O2, diabetes mellitus type 2, history of TIA, hypertension, seizure disorder without any recent s eizure activity, generalized anxiety disorder and recurrent depression. Patient states she developed shortness of breath and difficulty breathing. She states she does not have much cough. No lower extremity edema. She does have pain with deep breathing. When she is flat she has increased shortness of breath. She complains of fever. She denies any sick contacts such as her roommate. She was started on Levaquin for pneumonia 6 days ago without significant improvement. She was also taken off Lasix 2 days ago due to increasing creatinine. Patient came into [facility] emergency center for evaluation. Patient was afebrile, blood pressure 117/52, pulse ox 98% on O2, pulse 95, respiratory rate 22. WBC normal at 9.1, hemoglobin 7.7 and patient seems to run at 9.6, BUN 43 and creatinine 1.51 with baseline of 1.2-1.3. Blood sugar 273. ProBNP 9790, albumin 2.9. Chest x-ray reveals cardiomegaly with bilateral pleural effusion and associated atelectasis versus pneumonia. Patient was given 1 dose of IV Lasix, started on DuoNeb treatments, Levaquin, Zosyn and consult added for pulmonary medicine, Dr. Abreu. CT of the chest shows small to moderate bilateral pleural effusions. Adjacent atelectatic collapse left lower lobe and involving half of the right lower lobe. Prior granulomatous disease. Numerous 3 mm nodules within the right lung may also reflect prior granulomatous disease or other infectious or inflammatory process. One larger 1 cm subpleural nodule along the right hemidiaphragm could represent nodular atelectasis and should be reassessed. A 1.5 cm large right tracheobronchial lymph node may be reactive. 06/07: Repeat chest x-ray reveals slightly improved right small pleural effusion and stable moderate left pleural effusion with associated bibasilar airspace disease. Punctate right midlung 2 mm pulmonary nodule as seen on the recent CAT scan. 3 month follow-up was recommended. Patient will be changed to IV Lasix 40 mg every 8 hours. Patient remains afebrile, heart rate 84, blood pressure 106/57, pulse ox 100% on 2 L nasal cannula. Pro-calcitonin 0.18. Repeat lactic acid 1.8. Stool for occult blood was negative. Patient is found sitting in a chair. She has attempted to work with physical therapy but is limited with generalized weakness. Dr. Abreu and does not plan for thoracentesis. Antibiotics discontinued. 06/08: Patient has been afebrile, heart rate in the 70s, pulse ox 99% on 2 L nasal cannula, blood pressure 149/64. Repeat lab work reveals hemoglobin 8.2, WBC 6.6, BUN 53 and creatinine 1.7, CO2 31. Blood sugars running between 131 and 158. The patient states that her breathing is improved today. She is asking to go home. Patient has been diuresing well and is down 4.8 kg Lasix has been decreased by pulmonary medicine to 40 mg oral twice daily. We have ordered a chest x-ray from morning. Patient has been cleared for discharge by primary medicine. We are planning discharge back to [facility] tomorrow. Objective - Vital Signs Vital signs: Vital Signs Temp 97 F L 06/08/19 03:43 Pulse 74 06/08/19 09:23 Resp 18 06/08/19 03:44 BP 149/64 06/08/19 03:43 Pulse Ox 99 06/08/19 03:43 Intake & Output 06/07/19 06/08/19 06/08/19 18:59 06:59 18:59 Intake Total 700 Output Total 225 900 Balance 475 -900 Weight 56.7 kg Intake: Intake, IV Titration 100 Amount Piperacillin-Tazobactam 3 100 .375 gm In Sodium Chloride 0.9% 100 ml @ 200 mls/hr IVPB Q8HR [facility] Rx#:[id number] Oral 600 Output: Urine 225 900 Other: # Voids 1 1 - Exam Review of Systems Constitutional: Denies chills, Reports continued fatigue, denies fever, Reports poor appetite, Reports weakness Ears, nose, mouth and throat: Denies dysphagia, Denies nasal congestion, Denies nasal discharge, Denies vertigo Cardiovascular: Reports chest pain, Reports decreased exercise tolerance, Reports dyspnea on exertion, denies shortness of breath, Denies edema, Denies leg edema, Denies lightheadedness Respiratory: Reports cough, denies dyspnea, denies wheezing, Denies cough with sputum, Denies excessive sputum, Denies hemoptysis Gastrointestinal: Denies abdominal pain, Denies constipation, Denies dyspepsia, Denies loss of appetite, Denies nausea, Denies vomiting Genitourinary: Denies dysuria, Denies urgency, Denies urinary frequency Musculoskeletal: Reports gait dysfunction, Reports muscle weakness, Reports myalgias, Denies frequent falls Integumentary: Denies pruritus, Denies rash, Denies wounds Neurological: Reports weakness, Denies aphasia, Denies change in mentation, De nies change in speech, Denies confusion, Denies numbness, Denies seizures, Denies vertigo Psychiatric: Denies anxiety, Denies depression Endocrine: Reports fatigue, Denies weight change Gen: This is a 78-year-old obese female. Patient is resting in bed. HEENT: Head is atraumatic, normocephalic. Pupils equal, round. Sclerae is anicteric. NECK: Supple. No JVD. No lymphadenopathy. No thyromegaly. LUNGS: Diminished bilaterally basis No intercostal retractions. HEART: Regular rate and rhythm. Systolic murmur. ABDOMEN: Soft. Bowel sounds are present. No masses. No tenderness. EXTREMITIES: No pedal edema. No calf tenderness. NEUROLOGICAL: Patient is awake, alert and oriented x3. Cranial nerves 2 through 12 are grossly intact. - Labs CBC & Chem 7: 06/08/19 07:04 06/08/19 07:04 Labs: Abnormal Lab Results - Last 24 Hours (Table) 06/07/19 06/07/19 06/07/19 Range/Units 12:04 16:54 20:21 RBC (3.80-5.40) m/uL Hgb (11.4-16.0) gm/dL Hct (34.0-46.0) % MCHC (31.0-37.0) g/dL RDW (11.5-15.5) % Carbon Dioxide (22-30) mmol/L BUN (7-17) mg/dL Creatinine (0.52-1.04) mg/dL Glucose (74-99) mg/dL POC Glucose (mg/dL) 199 H 157 H 158 H (75-99) mg/dL 06/08/19 06/08/19 06/08/19 Range/Units 05:56 07:04 07:04 RBC 2.99 L (3.80-5.40) m/uL Hgb 8.2 L (11.4-16.0) gm/dL Hct 28.0 L (34.0-46.0) % MCHC 29.4 L (31.0-37.0) g/dL RDW 17.5 H (11.5-15.5) % Carbon Dioxide 31 H (22-30) mmol/L BUN 53 H (7-17) mg/dL Creatinine 1.70 H (0.52-1.04) mg/dL Glucose 131 H (74-99) mg/dL POC Glucose (mg/dL) 137 H (75-99) mg/dL Microbiology - Last 24 Hours (Table) 06/05/19 20:30 Blood Culture - Preliminary Blood No Growth after 48 hours Assessment and Plan Plan: 1. Acute respiratory distress secondary bilateral pleural effusions. Continue DuoNeb treatments 4 times daily, Pulmicort 1 mg twice daily, Lasix decreased to 40 mg twice daily oral, antibiotics discontinued. Consult with pulmonary medicine appreciated. CT of the chest as above. Pneumonia ruled out. 2. Chronic hypoxic respiratory failure on home O2. Continue oxygen therapy. 3. Diabetes mellitus type 2, uncontrolled with hyperglycemia. Continue Levemir 12 units at bedtime and NovoLog scale before meals and at bedtime. 4. Hypertension. Continue lisinopril 5 mg daily 5. Atrial fibrillation, paroxysmal. Continue eliquis. 6. Chronic kidney disease stage III. 7. Generalized anxiety disorder and recurrent depression. Continue Xanax 0.25 mg twice daily as needed and Zoloft 50 mg daily. 8. 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 9. Anemia of chronic disease. Monitor hemoglobin. No active bleeding. 10. Hypothyroidism. Continue levothyroxine 112 g daily. 11. Hyperlipidemia. Continue pravastatin 20 mg at bedtime. 12. GI prophylaxis and gastroesophageal reflux disease. Continue Carafate. 13. DVT prophylaxis. Continue eliquis. Discharge plan: Return to [facility] under the care of Dr. Mills on Impression and plan of care have been directed as dictated by the signing physician. Nubia Caruso nurse practitioner acting as scribe for signing physician.
[2019-06-08 16:51] LABS: Glucose,Whole Blood 176 mg/dL (75-99)
[2019-06-08] MEDS: FUROSEMIDE 40 MG TAB PO SCH (17:43)
[2019-06-08] MEDS: CYANOCOBALAMIN 500 MCG TAB PO SCH (17:44)
[2019-06-08] MEDS: MAGNESIUM OXIDE 400 MG TAB PO SCH (17:44)
[2019-06-08 20:24] LABS: Glucose,Whole Blood 180 mg/dL (75-99)
[2019-06-08] MEDS: MELATONIN 5 MG TABLET PO SCH (21:09)
[2019-06-08] MEDS: PRAVASTATIN SODIUM 20 MG TAB PO SCH (21:09)
[2019-06-08] MEDS: INSULIN DETEMIR (LEVEMIR) 100 UNIT/ML SYR SQ SCH (21:10)
[2019-06-09] MEDS: ACETAMINOPHEN TAB 325 MG TAB PO PRN (03:04)
[2019-06-09 06:21] LABS: Glucose,Whole Blood 96 mg/dL (75-99)
[2019-06-09] MEDS: SUCRALFATE 1 GM TAB PO SCH ×2 (06:26→11:53)
[2019-06-09] MEDS: INSULIN ASPART (NovoLOG) 100 UNIT/ML VIAL SQ SCH ×2 (06:26→12:40)
[2019-06-09] MEDS: LEVOTHYROXINE 112 MCG TAB PO SCH (06:28)
--- NOTE | 2019-06-09 07:17 | XR ---
EXAMINATION TYPE: XR chest 2V DATE OF EXAM: 06/09/2019 COMPARISON: 06/07/2019 HISTORY: Pleural effusions TECHNIQUE: Frontal and lateral views of the chest are obtained. FINDINGS: Moderate left pleural effusion and small right pleural effusion remain similar in degree t o the prior of 06/07/2019 with redistribution on the right. Bibasilar airspace disease is also seen pa rtially obscuring the enlarged but stable cardiomegaly mediastinal silhouette. Lung apices remain wel l aerated. The previously seen nodule at the periphery is not visualized on today's exam. No pneumoth orax. Osseous demineralization throughout. IMPRESSION: Similar small right and moderate left pleural effusions with associated bibasilar airspa ce disease in comparison to the prior of 06/07/2019. The previously seen 2 mm pulmonary nodule is not seen on today's exam. Follow-up chest CT or attention on follow-up chest x-rays.
[2019-06-09] MEDS: BUDESONIDE 1 MG/2 ML NEBU INHALATION SCH (07:59)
[2019-06-09] MEDS: IPRATROPIUM-ALBUTEROL 3 ML NEB INHALATION SCH ×2 (07:59→11:22)
[2019-06-09] MEDS: POTASSIUM CHLORIDE ER 20 MEQ TAB.ER PO SCH (09:34)
[2019-06-09] MEDS: APIXABAN 5 MG TAB PO SCH (09:36)
[2019-06-09] MEDS: FERROUS SULFATE 325 MG TAB PO SCH (09:36)
[2019-06-09] MEDS: FAMOTIDINE 20 MG TAB PO SCH (09:36)
[2019-06-09] MEDS: LISINOPRIL 5 MG TAB PO SCH (09:36)
[2019-06-09] MEDS: SERTRALINE 50 MG TAB PO SCH (09:37)
[2019-06-09] MEDS: SENNOSIDES-DOCUSATE SODIUM 1 EACH TAB PO SCH (09:37)
[2019-06-09] MEDS: FUROSEMIDE 40 MG TAB PO SCH (09:37)
[2019-06-09] MEDS: DIVALPROEX SPRINKLE 125 MG CAP.SPRINK PO SCH (09:38)
[2019-06-09 10:55] VITALS: TEMP 98.5
--- NOTE | 2019-06-09 11:53 | P.DS ---
Providers Date of admission: 06/05/19 23:00 Expected date of discharge: 06/09/19 Attending physician: Gilma Barkley Consults: 06/05/19 22:56 Consult Physician Routine Consulting Provider: Jose Kelley Consult Reason/Comments: Pleural effusions Do you want consulting provider notified?: Yes, Notify in am Primary care physician: Eleazar Gene [facility] [employer] [facility] Course: This is a 78-year-old female patient of Dr. Mills currently at [facility] with past medical history of chronic kidney disease stage III, atrial fibrillation, chronic hypoxic respiratory failure on home O2, diabetes mellitus type 2, history of TIA, hypertension, seizure disorder without any recent seizure activity, generalized anxiety disorder and recurrent depression. Patient states she developed shortness of breath and difficulty breathing. She states she does not have much cough. No lower extremity edema. She does have pain with deep breathing. When she is flat she has increased shortness of breath. She complains of fever. She denies any sick contacts such as her roommate. She was started on Levaquin for pneumonia 6 days ago without significant improvement. She was also taken off Lasix 2 days ago due to increasing creatinine. Patient came into [facility] emergency center for evaluation. Patient was afebrile, blood pressure 117/52, pulse ox 98% on O2, pulse 95, respiratory rate 22. WBC normal at 9.1, hemoglobin 7.7 and patient seems to run at 9.6, BUN 43 and creatinine 1.51 with baseline of 1.2- 1.3. Blood sugar 273. ProBNP 9790, albumin 2.9. Chest x-ray reveals cardiomegaly with bilateral pleural effusion and associated atelectasis versus pneumonia. Patient was given 1 dose of IV Lasix, started on DuoNeb treatments, Levaquin, Zosyn and consult added for pulmonary medicine, Dr. Abreu. CT of the chest shows small to moderate bilateral pleural effusions. Adjacent atelectatic collapse left lower lobe and involving half of the right lower lobe. Prior granulomatous disease. Numerous 3 mm nodules within the right lung may also reflect prior granulomatous disease or other infectious or inflammatory process. One larger 1 cm subpleural nodule along the right hemidiaphragm could represent nodular atelectasis and should be reassessed. A 1.5 cm large right tracheobronchial lymph node may be reactive. 06/07: Repeat chest x-ray reveals slightly improved right small pleural effusion and stable moderate left pleural effusion with associated bibasilar airspace disease. Punctate right midlung 2 mm pulmonary nodule as seen on the recent CAT scan. 3 month follow-up was recommended. Patient will be changed to IV Lasix 40 mg every 8 hours. Patient remains afebrile, heart rate 84, blood pressure 106/57, pulse ox 100% on 2 L nasal cannula. Pro-calcitonin 0.18. Repeat lactic acid 1.8. Stool for occult blood was negative. Patient is found sitting in a chair. She has attempted to work with physical therapy but is limited with generalized weakness. Dr. Abreu and does not plan for thoracentesis. Antibiotics discontinued. 06/08: Patient has been afebrile, heart rate in the 70s, pulse ox 99% on 2 L nasal cannula, blood pressure 149/64. Repeat lab work reveals hemoglobin 8.2, WBC 6.6, BUN 53 and creatinine 1.7, CO2 31. Blood sugars running between 131 and 158. The patient states that her breathing is improved today. She is asking to go home. Patient has been diuresing well and is down 4.8 kg Lasix has been decreased by pulmonary medicine to 40 mg oral twice daily. We have ordered a chest x-ray from morning. Patient has been cleared for discharge by primary medicine. We are planning discharge back to [facility] tomorrow. 06/09: Repeat chest x-ray reveals a small right pleural effusion and moderate left pleural effusion. Patient is on oral Lasix which will be continued. She denies any significant shortness of breath. She has ambulating in the room with physical therapy and pulse ox is 99% on 3 L. Patient apparently wears 2 L at the [facility]. Patient is complaining of feeling tired. Vital signs are stable. Patient will be discharged to [facility] today in stable condition. Discharge diagnoses: 1. Acute respiratory distress secondary bilateral pleural effusions. Pneumonia ruled out. 2. Chronic hypoxic respiratory failure on home O2. 3. Diabetes mellitus type 2, uncontrolled with hyperglycemia. 4. Hypertension. 5. Atrial fibrillation, paroxysmal. 6. Chronic kidney disease stage III. 7. Generalized anxiety disorder and recurrent depression. 8. 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 9. Anemia of chronic disease. 10. Hypothyroidism. 11. Hyperlipidemia. . Discharge plan: Return to [facility] under the care of Dr. Mills on Impression and plan of care have been directed as dictated by the signing physician. Nubia Caruso nurse practitioner acting as scribe for signing physician. Patient Condition at Discharge: Good Plan - Discharge Summary Discharge Rx Participant: No New Discharge Prescriptions: New Potassium Chloride ER [K-Dur 20] 20 meq PO BID tab.er.prt Furosemide [Lasix] 40 mg PO BID@0900,1600 tab Continue Cyanocobalamin [Vitamin B-12] 500 mcg PO DAILY@1700 Pravastatin Sodium [Pravachol] 20 mg PO HS@2100 Apixaban [Eliquis] 5 mg PO BID@0800,1700 Budesonide 1 mg INHALATION RT-BID@0800,1700 Divalproex Sodium [Depakote Sprinkle] 500 mg PO DAILY@0800 Famotidine [Pepcid] 20 mg PO DAILY@0800 Ferrous Sulfate [Iron (65 MG Elemental)] 325 mg PO BID@0800,1700 Levothyroxine Sodium 112 mcg PO DAILY@0600 Lisinopril [Prinivil] 5 mg PO DAILY@0800 Magnesium Oxide 400 mg PO DAILY@1700 Melatonin 10 mg PO HS@2100 Sertraline [Zoloft] 50 mg PO DAILY@0800 Sucralfate [Carafate] 1 gm PO ACHS Albuterol Nebulized [Ventolin Nebulized] 2.5 mg INHALATION RT-Q4H PRN PRN Reason: Shortness Of Breath Acetaminophen Tab [Tylenol] 650 mg PO Q6H PRN PRN Reason: Pain Insulin Glargine [Lantus] 12 unit SQ HS@2130 Bisacodyl [Dulcolax] 10 mg RECTAL DAILY PRN PRN Reason: Constipation Glucerna Shake 1 can PO TID@0800,1200,1700 Insulin Lispro [humaLOG Kwikpen] 5 unit SQ TID@0700,1100,1730 Ipratropium-Albuterol Nebulize [Duoneb 0.5 mg-3 mg/3 ml Soln] 3 ml INHALATION RT-QID Magnesium Hydroxide [Milk of Magnesia Concentrate] 7,200 mg PO DAILY PRN PRN Reason: Constipation Na Phos,M-B/Na Phos,Di-Ba [Fleet Adult] 133 ml RECTAL DAILY PRN PRN Reason: Constipation Sennosides-Docusate Sodium [Senokot-S] 1 tab PO BID@0800,1700 ALPRAZolam [Xanax] 0.25 mg PO BID PRN #6 tab PRN Reason: Anxiety Discontinued Furosemide [Lasix] 20 mg PO DAILY@0600 Levofloxacin [Levaquin] 250 mg PO DAILY@0800 Discharge Medication List Cyanocobalamin [Vitamin B-12] 500 mcg PO DAILY@169904/23/14 [History] Pravastatin Sodium [Pravachol] 20 mg PO HS@209904/23/14 [History] Acetaminophen Tab [Tylenol] 650 mg PO Q6H PRN 05/20/19 [History] Albuterol Nebulized [Ventolin Nebulized] 2.5 mg INHALATION RT-Q4H PRN 05/20/19 [History] Apixaban [Eliquis] 5 mg PO BID@0800,17005/20/19 [History] Budesonide 1 mg INHALATION RT-BID@0800,169905/20/19 [History] Divalproex Sodium [Depakote Sprinkle] 500 mg PO DAILY@0805/20/19 [History] Famotidine [Pepcid] 20 mg PO DAILY@79905/20/19 [History] Ferrous Sulfate [Iron (65 MG Elemental)] 325 mg PO BID@0800,17005/20/19 [History] Insulin Glargine [Lantus] 12 unit SQ HS@212905/20/19 [History] Levothyroxine Sodium 112 mcg PO DAILY@0605/20/19 [History] Lisinopril [Prinivil] 5 mg PO DAILY@0805/20/19 [History] Magnesium Oxide 400 mg PO DAILY@169905/20/19 [History] Melatonin 10 mg PO HS@209905/20/19 [History] Sertraline [Zoloft] 50 mg PO DAILY@79905/20/19 [History] Sucralfate [Carafate] 1 gm PO ACHS 05/20/19 [History] Bisacodyl [Dulcolax] 10 mg RECTAL DAILY PRN 06/05/19 [History] Glucerna Shake 1 can PO TID@0800,1200,1700 06/05/19 [History] Insulin Lispro [humaLOG Kwikpen] 5 unit SQ TID@0700,1100,1730 06/05/19 [History] Ipratropium-Albuterol Nebulize [Duoneb 0.5 mg-3 mg/3 ml Soln] 3 ml INHALATION RT-QID 06/05/19 [History] Magnesium Hydroxide [Milk of Magnesia Concentrate] 7,200 mg PO DAILY PRN 06/05/19 [History] Na Phos,M-B/Na Phos,Di-Ba [Fleet Adult] 133 ml RECTAL DAILY PRN 06/05/19 [History] Sennosides-Docusate Sodium [Senokot-S] 1 tab PO BID@0800,1700 06/05/19 [History] ALPRAZolam [Xanax] 0.25 mg PO BID PRN #6 tab 06/09/19 [Rx] Furosemide [Lasix] 40 mg PO BID@0900,1600 tab 06/09/19 [Rx] Potassium Chloride ER [K-Dur 20] 20 meq PO BID tab.er.prt 06/09/19 [Rx] Follow up Appointment(s)/Referral(s): Eleazar Mills MD [Primary Care Provider] - 1 Week (at [facility]) Activity/Diet/Wound Care/Special Instructions: Chest x-ray in 1 week, BMP on Thursday Discharge Disposition: TRANSFER TO SNF/ECF
[2019-06-09 12:17] LABS: Glucose,Whole Blood 172 mg/dL (75-99)
[2019-06-09 12:17] LABS: Glucose,Whole Blood 188 mg/dL (75-99)
[2019-06-09 12:48] VITALS: BP 137/67; PULSE 72; RESP 18
--- NOTE | 2019-06-09 13:42 | P.PN ---
Subjective Progress Note Date: 06/09/19 Principal diagnosis: Acute on chronic diastolic congestive heart failure. This is a 78-year-old female with history of multiple medical problems including chronic kidney disease stage III, chronic hypoxic respiratory failure, on home O2, chronic atrial fibrillation, hypertension, seizure disorder, generalized anxiety disorder, history of recurrent episodes of chronic diastolic congestive heart failure, history of moderate pulmonary hypertension, right-sided pressures in the range of 56, history of concentric left ventricular hypertrophy, good ejection fraction on previous echocardiography, history of paroxysmal atrial fibrillation, patient was admitted to [facility] couple of weeks ago, and she was seen by Dr. Kelley on consultation. At that time she had left apical pneumothorax which was most likely iatrogenic secondary to recent a left sided thoracentesis. Patient was admitted this time with mostly few days history of increased shortness of breath, exacerbated by laying flat. She also had low-grade fever, no chills, no hemoptysis, and no clear-cut evidence of pneumonia on admission. She did have bilateral pleural effusions, hence of this consult was initiated. Patient was placed on Lasix, DuoNeb updrafts, Levaquin and Zosyn, and after reviewing her chest x-ray and CT of the chest, I felt that there is no immediate need for thoracentesis, patient will likely respond to diuretics. Her CBC was basically normal except for a low hemoglobin of 7.7. Electrolytes are normal. BUN is 43 creatinine is 1.51. On 06/07/2017 patient seen in follow-up on selective care unit, she is awake and alert, in no acute distress, she sits up in the recliner, no shortness of breath, currently on 2 L of oxygen with a pulse ox of 100%, she is afebrile, lung sounds reveal diminished breath sounds bilaterally, left greater than the right, follow-up chest x-ray showed slightly improved right small pleural effusion and stable moderate left pleural effusion with associated bibasilar airspace disease. There is a punctate right midlung 2 mm pulmonary nodule, with a 3 months follow-up recommendation. Otherwise no acute issues overnight, no specific complaints. She remains on diuretics, on Lasix, 40 mg every 8 hours, he is diuresing, she is in -2230 mL or less 24 hours. On 06/08/2019 patient seen in follow-up on selective care unit, she is to be fatigued, but in no acute distress, her breathing is improving, she states she was up all night going to the bathroom. Weight is down by 4.8 kg in the last 24 hours, she is in negative fluid balance. She is on Lasix 40 mg every 8 hours, and today's labs show worsening renal profile, B1 is 53 and creatinine is 1.7, she is on 2 L of oxygen with pulse ox of 99%, no fever chills, lung sounds revea l bilateral lower bases crackles, no cough or congestion, no new chest x-ray today, we'll switch the patient to oral Lasix today. The patient is seen today 06/09/2019 in follow-up on the selective care unit. She is currently sitting up in a chair at the bedside. Awake and alert in no acute distress. She denies any worsening shortness of breath, cough or congestion. No chills or night sweats. Chest x-ray stable. 18 in good O2 saturations in the mid 90s on 2 L/m per nasal cannula. She's been afebrile. Hemodynamically stable. Blood culture reveals no growth. She remains on DuoNeb inhalations, Pulmicort inhalations. On oral diuretics. Anticoagulated with Eliquis. Objective - Vital Signs Vital signs: Vital Signs Temp 98.5 F 06/09/19 09:25 Pulse 72 06/09/19 11:50 Resp 18 06/09/19 11:50 BP 137/67 06/09/19 11:50 Pulse Ox 95 06/09/19 11:50 Intake & Output 06/08/19 06/09/19 06/09/19 18:59 06:59 18:59 Intake Total 358 210 360 Output Total 200 Balance 358 10 360 Weight 57 kg Intake: IV 110 0.9 110 Oral 358 100 360 Output: Urine 200 Other: Voiding Method Bedside Commode Bedside Commode Bedside Commode # Voids 3 1 # Bowel Movements 1 1 1 - Exam GENERAL EXAM: Alert, pleasant, 78-year-old female, comfortable in no apparent distress. On 2 L nasal cannula. HEAD: Normocephalic/atraumatic. EYES: Normal reaction of pupils, equal size. Conjunctiva pink, sclera white. NOSE: Clear with pink turbinates. THROAT: No erythema or exudates. NECK: No masses, no JVD, no thyroid enlargement, no adenopathy. CHEST: No chest wall deformity. Symmetrical expansion. LUNGS: Equal air entry with diminished breath sounds at the bases, with dullness to percussion, left greater than the right CVS: Regular rate and rhythm, normal S1 and S2, no gallops, no murmurs, no rubs ABDOMEN: Soft, nontender. No hepatosplenomegaly, normal bowel sounds, no guarding or rigidity. EXTREMITIES: No clubbing, no edema, no cyanosis, 2+ pulses and upper and lower extremities. MUSCULOSKELETAL: Muscle strength and tone normal. SPINE: No scoliosis or deformity SKIN: No rashes CENTRAL NERVOUS SYSTEM: No focal deficits, tone is normal in all 4 extremities. PSYCHIATRIC: Alert and oriented -3. Appropriate affect. Intact judgment and insight. - Labs CBC & Chem 7: 06/08/19 07:04 06/08/19 07:04 Labs: Abnormal Lab Results - Last 24 Hours (Table) 06/08/19 06/08/19 06/09/19 Range/Units 16:48 20:22 11:56 POC Glucose (mg/dL) 176 H 180 H 188 H (75-99) mg/dL 06/09/19 Range/Units 11:57 POC Glucose (mg/dL) 172 H (75-99) mg/dL Microbiology - Last 24 Hours (Table) 06/05/19 20:30 Blood Culture - Preliminary Blood No Growth after 72 hours Assessment and Plan Assessment: Assessment: 1 acute on chronic diastolic congestive heart failure, no clear-cut evidence of pneumonia. 2 bilateral pleural effusions secondary to chronic diastolic congestive heart failure 3 acute on chronic hypoxic respiratory failure 4 type 2 diabetes 5 benign essential hypertension 6 paroxysmal atrial fibrillation 7 chronic kidney disease stage III, 8 generalized anxiety disorder 9 anemia of chronic disease 10 hypothyroidism 11 possible underlying COPD hence we will continue bronchodilators for now. Including DuoNeb and Pulmicort. Plan: The patient was seen and evaluated by Dr. Abreu. She is cleared for transfer to [facility]. Oxygen at 2 L/m per nasal cannula. Continue bronchodilators. We'll see as needed. I, the cosigning physician, performed a history & physical examination of the patient. Lungs sounds with faint crackles in bilateral posterior bases. Maintaining good O2 saturations in the 90s on 2 L/m per nasal cannula. I discussed the assessment and plan of care with my nurse practitioner, Nataly Reveles. I attest to the above note as dictated by her.
--- NOTE | 2019-06-13 16:43 | CDI ---
Documentation Clarification Form Date: 06/13/19 From: Yecenia Brady Phone: If you have a question regarding this query, please contact Elaine Larsen at [phone] between 8am and 5pm. Admit Date: 06/05/2019 11:00:00 PM Patient Name: Tammi Schneider Visit Number: [id number] Discharge Date: 06/09/2019 1:24:00 PM ATTENTION: The Clinical Documentation Specialists (CDI) and [facility] Coding Staff appreciate your assistance in clarifying documentation. Please respond to the clarification below the line at the bottom and electronically sign. The CDI & [facility] Coding staff will review the response and follow-up if needed. Please note: Queries are made part of the Legal Health Record. If you have any questions, please contact the author of this message via ITS. Dr. Gilma Barkley/EDITA Jimenez Conflicting documentation has been found in the medical record: Acute respiratory failure is documented in Dr. Abreu's consult note and progress notes. Acute respiratory distress is documented in the H&P, your progress notes and the discharge summary. History/Risk Factors: Chronic respiratory failure, CHF exacerbation with pleural effusion. Clinical Indicators: Shortness of breath with difficulty breathing, dyspnea on exertion Vital Signs: T. 99.2, P. 95, R. 22, BP 117/52, Home O2: 2 L Pulse Ox. 98% on 3L O2 per nasal cannula Treatment: Duoneb inhalation, Pulmicort inhalation Oxygen: 3 lpm/nasal cannula In your opinion, what is the most clinically appropriate diagnosis for this patient? Acute Respiratory Distress Acute on Chronic Respiratory Failure with hypoxia Other explanation of clinical findings Unable to determine (no explanation for clinical findings) Acute respiratory distress as per my discharge summary. SILVA/INDU PEREA
== END 2019-06-09 13:24 | DRG 291 ==
LOC: EC 20:02 → 3SCARD 23:00
PROVIDERS: ADMIT Family Medicine; ATTEND Family Medicine
DX: I13.0 Hypertensive heart and chronic kidney disease with heart failure and stage 1 through stage 4 chronic kidney disease, or unspecified chronic kidney disease (principal); I50.33 Acute on chronic diastolic (congestive) heart failure; F33.9 Major depressive disorder, recurrent, unspecified; E11.22 Type 2 diabetes mellitus with diabetic chronic kidney disease; E11.65 Type 2 diabetes mellitus with hyperglycemia; I27.20 Pulmonary hypertension, unspecified; R06.03 Acute respiratory distress; D63.8 Anemia in other chronic diseases classified elsewhere; G40.909 Epilepsy, unspecified, not intractable, without status epilepticus; I48.0 Paroxysmal atrial fibrillation; N18.3 Chronic kidney disease, stage 3 (moderate); E03.9 Hypothyroidism, unspecified; E78.5 Hyperlipidemia, unspecified; F41.1 Generalized anxiety disorder; K21.9 Gastro-esophageal reflux disease without esophagitis; R01.1 Cardiac murmur, unspecified; R91.1 Solitary pulmonary nodule; E66.9 Obesity, unspecified; Z68.22 Body mass index [BMI] 22.0-22.9, adult; Z79.01 Long term (current) use of anticoagulants; Z79.4 Long term (current) use of insulin; Z79.890 Hormone replacement therapy; Z79.899 Other long term (current) drug therapy; Z88.1 Allergy status to other antibiotic agents; Z91.041 Radiographic dye allergy status; Z99.81 Dependence on supplemental oxygen; Z90.710 Acquired absence of both cervix and uterus; Z86.73 Personal history of transient ischemic attack (TIA), and cerebral infarction without residual deficits; Z90.49 Acquired absence of other specified parts of digestive tract; Z80.3 Family history of malignant neoplasm of breast; Z80.8 Family history of malignant neoplasm of other organs or systems; Z82.49 Family history of ischemic heart disease and other diseases of the circulatory system
CPT/HCPCS: 36415; 71045; 71046; 71250; 80048; 80053; 82272; 83036; 83605; 83735; 83880; 84145; 84484; 85025; 85027; 85610; 85730; 87040; 93005; 94640; 94760; 96374; 99285

== ENCOUNTER 2019-08-02 17:58 | Emergency (ER) | payer MEDICARE, BC, OTHER ==
[2019-08-02] MEDS ORDERED: ACETAMINOPHEN TAB 500 MG TAB PO STA (18:13)
[2019-08-02] MEDS ORDERED: SODIUM CHLORIDE 0.9% 1,000 ML IV ONE (18:13)
--- NOTE | 2019-08-02 18:15 | ED ---
Fall HPI - General Chief Complaint: Fall Stated Complaint: back pain Time Seen by Provider: 08/02/19 18:03 Source: patient, EMS, RN notes reviewed Mode of arrival: EMS Limitations: no limitations - History of Present Illness Initial Comments: This a 79-year-old female presents emergency Department via EMS with chief complaint of back pain. Patient reports that she fell 2 days ago is trip and fall. Patient denies any head injury she states she fell directly on her buttock. Patient states that she cannot get warm. She states that she's been shivering. She states she does not know why. She denies any urinary symptoms including dysuria, hematuria, diarrhea, constipation, bowel bladder incontinence or retention. No cough no URI symptoms denies any neck pain. She does complain of a mild headache though she states when she took a Tylenol home and alleviate her symptoms. Patient denies any sick contacts - Related Data Home Medications Medication Instructions Recorded Confirmed Cyanocobalamin [Vitamin B-12] 500 mcg PO DAILY@1700 04/23/14 06/05/19 Pravastatin Sodium [Pravachol] 20 mg PO HS@2100 04/23/14 06/05/19 Acetaminophen Tab [Tylenol] 650 mg PO Q6H PRN 05/20/19 06/05/19 Albuterol Nebulized [Ventolin 2.5 mg INHALATION RT-Q4H PRN 05/20/19 06/05/19 Nebulized] Apixaban [Eliquis] 5 mg PO BID@0800,1700 05/20/19 06/05/19 Budesonide 1 mg INHALATION RT-BID@0800,1700 05/20/19 06/05/19 Divalproex Sodium [Depakote 500 mg PO DAILY@0800 05/20/19 06/05/19 Sprinkle] Famotidine [Pepcid] 20 mg PO DAILY@0805/20/19 06/05/19 Ferrous Sulfate [Iron (65 MG 325 mg PO BID@0800,1700 05/20/19 06/05/19 Elemental)] Insulin Glargine [Lantus] 12 unit SQ HS@2130 05/20/19 06/05/19 Levothyroxine Sodium 112 mcg PO DAILY@0600 05/20/19 06/05/19 Lisinopril [Prinivil] 5 mg PO DAILY@0800 05/20/19 06/05/19 Magnesium Oxide 400 mg PO DAILY@1700 05/20/19 06/05/19 Melatonin 10 mg PO HS@2100 05/20/19 06/05/19 Sertraline [Zoloft] 50 mg PO DAILY@0800 05/20/19 06/05/19 Sucralfate [Carafate] 1 gm PO ACHS 05/20/19 06/05/19 Bisacodyl [Dulcolax] 10 mg RECTAL DAILY PRN 06/05/19 06/05/19 Glucerna Shake 1 can PO TID@0800,1200,1700 06/05/19 06/05/19 Insulin Lispro [humaLOG Kwikpen] 5 unit SQ TID@0700,1100,1730 06/05/19 06/05/19 Ipratropium-Albuterol Nebulize 3 ml INHALATION RT-QID 06/05/19 06/05/19 [Duoneb 0.5 mg-3 mg/3 ml Soln] Magnesium Hydroxide [Milk of 7,200 mg PO DAILY PRN 06/05/19 06/05/19 Magnesia Concentrate] Na Phos,M-B/Na Phos,Di-Ba [Fleet 133 ml RECTAL DAILY PRN 06/05/19 06/05/19 Adult] Sennosides-Docusate Sodium 1 tab PO BID@0800,1700 06/05/19 06/05/19 [Senokot-S] Previous Rx's Medication Instructions Recorded ALPRAZolam [Xanax] 0.25 mg PO BID PRN #6 tab 06/09/19 Furosemide [Lasix] 40 mg PO BID@0900,1600 tab 06/09/19 Potassium Chloride ER [K-Dur 20] 20 meq PO BID tab.er.prt 06/09/19 Allergies Allergy/AdvReac Type Severity Reaction Status Date / Time doxycycline calcium Allergy Anaphylaxis Verified 06/05/19 20:52 [From Vibramycin] doxycycline hyclate Allergy Anaphylaxis Verified 06/05/19 20:52 [From Vibramycin] doxycycline monohydrate Allergy Anaphylaxis Verified 06/05/19 20:52 [From Vibramycin] erythromycin base Allergy Anaphylaxis Verified 06/05/19 20:52 Iodinated Contrast Media Allergy Anaphylaxis Verified 06/05/19 20:52 [Iodinated Contrast Media - IV Dye] Review of Systems ROS Statement: Those systems with pertinent positive or pertinent negative responses have been documented in the HPI. ROS Other: All systems not noted in ROS Statement are negative. Past Medical History Past Medical History: Heart Failure, CVA/TIA, Diabetes Mellitus, Hypertension, Renal Disease Additional Past Medical History / Comment(s): TIAs 4 with previous TIA 18 months ago. Motor seizures left leg anemic, irregular heart beat; murmur History of Any Multi-Drug Resistant Organisms: None Reported Past Surgical History: Appendectomy, Hysterectomy, Orthopedic Surgery Additional Past Surgical History / Comment(s): left knee arthroscopy, cyst removal (pilonidal cyst) Past Anesthesia/Blood Transfusion Reactions: No Reported Reaction Past Psychological History: Anxiety Smoking Status: Never smoker Past Alcohol Use History: None Reported Past Drug Use History: None Reported - Past Family History Brother(s) Additional Family Medical History / Comment(s): The patient has 2 brothers and both are . One from aspiration pneumonia with history of stomach cancer. A second brother from melanoma. Father Family Medical History: Congestive Heart Failure (CHF) Additional Family Medical History / Comment(s): Father at age 65 from heart failure. Mother Family Medical History: Congestive Heart Failure (CHF) Additional Family Medical History / Comment(s): Mother at age 92 from heart failure and had previous history of coronary artery disease with several MIs. Sister(s) Family Medical History: Cancer Additional Family Medical History / Comment(s): The patient has 2 sisters. One is stage IV breast cancer survivor and history of diverticulitis. Second sister has many medical problems. Son(s) Family Medical History: Hypertension General Exam Limitations: no limitations General appearance: alert, in no apparent distress Head exam: Present: atraumatic, normocephalic, normal inspection Eye exam: Present: normal appearance, PERRL, EOMI. Absent: scleral icterus, conjunctival injection, periorbital swelling ENT exam: Present: normal exam, normal oropharynx, mucous membranes moist Neck exam: Present: normal inspection, full ROM. Absent: tenderness, meningismus, lymphadenopathy Respiratory exam: Present: normal lung sounds bilaterally. Absent: respiratory distress, wheezes, rales, rhonchi, stridor Cardiovascular Exam: Present: regular rate, normal rhythm, normal heart sounds. Absent: systolic murmur, diastolic murmur, rubs, gallop, clicks GI/Abdominal exam: Present: soft, normal bowel sounds. Absent: distended, tenderness, guarding, rebound, rigid Back exam: Present: normal inspection, tenderness, paraspinal tenderness, v ertebral tenderness (Lumbar). Absent: full ROM Neurological exam: Present: alert, oriented X3, CN II-XII intact, reflexes normal. Absent: motor sensory deficit Skin exam: Present: warm, dry, intact, normal color. Absent: rash Course Vital Signs 08/02/19 08/02/19 08/02/19 18:05 19:27 19:38 Temperature 101.2 F H Pulse Rate 62 68 67 Respiratory 22 Rate Blood Pressure 128/99 O2 Sat by Pulse 98 Oximetry 08/02/19 20:54 Temperature 98.9 F Pulse Rate 77 Respiratory 20 Rate Blood Pressure 136/66 O2 Sat by Pulse 98 Oximetry Medical Decision Making - Medical Decision Making 79-year-old female presented from for a fall. Initial complaint was a fall 2 days ago complaining of back pain no initial exam she was warm, reported fever 101. Patient had complete workup for fever which is negative. This most likely is a viral illness. Patient is here with family who agree to take her home at this time they do feel that she is safe for discharge patient had labs, urinalysis, CT of her chest x-ray and CT shows evidence of constipation. I did discuss that recommend her to follow-up within 24 hours return for any worsening symptoms. - Lab Data Result diagrams: 08/02/19 19:11 08/02/19 19:11 Lab Results 08/02/19 08/02/19 08/02/19 Range/Units 19:11 19:11 19:11 WBC 11.7 H (3.8-10.6) k/uL RBC 4.03 (3.80-5.40) m/uL Hgb 11.3 L D (11.4-16.0) gm/dL Hct 34.7 (34.0-46.0) % MCV 86.1 (80.0-100.0) fL MCH 28.0 (25.0-35.0) pg MCHC 32.5 (31.0-37.0) g/dL RDW 17.2 H (11.5-15.5) % Plt Count 256 (150-450) k/uL Neutrophils % 80 % Lymphocytes % 12 % Monocytes % 5 % Eosinophils % 1 % Basophils % 0 % Neutrophils # 9.4 H (1.3-7.7) k/uL Lymphocytes # 1.4 (1.0-4.8) k/uL Monocytes # 0.6 (0-1.0) k/uL Eosinophils # 0.2 (0-0.7) k/uL Basophils # 0.0 (0-0.2) k/uL Anisocytosis Slight Sodium 138 (137-145) mmol/L Potassium 5.4 H (3.5-5.1) mmol/L Chloride 99 (98-107) mmol/L Carbon Dioxide 24 (22-30) mmol/L Anion Gap 15 mmol/L BUN 76 H (7-17) mg/dL Creatinine 1.98 H (0.52-1.04) mg/dL Est GFR (CKD-EPI)AfAm 27 (>60 ml/min/1.73 sqM) Est GFR (CKD-EPI)NonAf 24 (>60 ml/min/1.73 sqM) Glucose 159 H (74-99) mg/dL Plasma Lactic Acid Cam 2.1 H* (0.7-2.0) mmol/L Calcium 10.7 H (8.4-10.2) mg/dL Total Bilirubin 0.6 (0.2-1.3) mg/dL AST 14 (14-36) U/L ALT 10 (9-52) U/L Alkaline Phosphatase 63 (38-126) U/L Total Protein 7.6 (6.3-8.2) g/dL Albumin 4.2 (3.5-5.0) g/dL Lipase 114 (23-300) U/L Urine Color Urine Appearance (Clear) Urine pH (5.0-8.0) Ur Specific [place] (1.001-1.035) Urine Protein (Negative) Urine Glucose (UA) (Negative) Urine Ketones (Negative) Urine Blood (Negative) Urine Nitrite (Negative) Urine Bilirubin (Negative) Urine Urobilinogen (<2.0) mg/dL Ur Leukocyte Esterase (Negative) Urine RBC (0-5) /hpf Urine WBC (0-5) /hpf Ur Squamous Epith Cells (0-4) /hpf Influenza Type A RNA (Not Detectd) Influenza Type B (PCR) (Not Detectd) 08/02/19 08/02/19 Range/Units 19:28 20:35 WBC (3.8-10.6) k/uL RBC (3.80-5.40) m/uL Hgb (11.4-16.0) gm/dL Hct (34.0-46.0) % MCV (80.0-100.0) fL MCH (25.0-35.0) pg MCHC (31.0-37.0) g/dL RDW (11.5-15.5) % Plt Count (150-450) k/uL Neutrophils % % Lymphocytes % % Monocytes % % Eosinophils % % Basophils % % Neutrophils # (1.3-7.7) k/uL Lymphocytes # (1.0-4.8) k/uL Monocytes # (0-1.0) k/uL Eosinophils # (0-0.7) k/uL Basophils # (0-0.2) k/uL Anisocytosis Sodium (137-145) mmol/L Potassium (3.5-5.1) mmol/L Chloride (98-107) mmol/L Carbon Dioxide (22-30) mmol/L Anion Gap mmol/L BUN (7-17) mg/dL Creatinine (0.52-1.04) mg/dL Est GFR (CKD-EPI)AfAm (>60 ml/min/1.73 sqM) Est GFR (CKD-EPI)NonAf (>60 ml/min/1.73 sqM) Glucose (74-99) mg/dL Plasma Lactic Acid Cam (0.7-2.0) mmol/L Calcium (8.4-10.2) mg/dL Total Bilirubin (0.2-1.3) mg/dL AST (14-36) U/L ALT (9-52) U/L Alkaline Phosphatase (38-126) U/L Total Protein (6.3-8.2) g/dL Albumin (3.5-5.0) g/dL Lipase (23-300) U/L Urine Color Yellow Urine Appearance Clear (Clear) Urine pH 8.0 (5.0-8.0) Ur Specific [place] 1.012 (1.001-1.035) Urine Protein Negative (Negative) Urine Glucose (UA) Negative (Negative) Urine Ketones Trace H (Negative) Urine Blood Negative (Negative) Urine Nitrite Negative (Negative) Urine Bilirubin Negative (Negative) Urine Urobilinogen <2.0 (<2.0) mg/dL Ur Leukocyte Esterase Trace H (Negative) Urine RBC 1 (0-5) /hpf Urine WBC 3 (0-5) /hpf Ur Squamous Epith Cells 1 (0-4) /hpf Influenza Type A RNA Not Detected (Not Detectd) Influenza Type B (PCR) Not Detected (Not Detectd) Disposition Clinical Impression: Fall, Back pain, Viral syndrome Disposition: HOME SELF-CARE Condition: Stable Instructions (If sedation given, give patient instructions): Fall Prevention for Older Adults (ED) Additional Instructions: Please return to the Emergency Department if symptoms worsen or any other concerns. Is patient prescribed a controlled substance at d/c from ED?: No Referrals: Eleazar Mills MD [Primary Care Provider] - 1-2 days Time of Disposition: 22:54
[2019-08-02] MEDS ORDERED: ALBUTEROL NEBULIZED 2.5 MG/3 ML INHALATION STA (19:12)
[2019-08-02 19:31] LABS: Anisocytosis Slight; Basophils % (A) 0 %; Eosinophils # (A) 0.2 k/uL (0-0.7); Eosinophils % (A) 1 %; HCT 34.7 % (34.0-46.0); Lymphocytes # (A) 1.4 k/uL (1.0-4.8); Lymphocytes % (A) 12 %; MCHC 32.5 g/dL (31.0-37.0); MCV 86.1 fL (80.0-100.0); Mean Platelet Volume 7.2; Monocytes # (A) 0.6 k/uL (0-1.0); Monocytes % (A) 5 %; Neutrophils # (A) 9.4 k/uL (1.3-7.7); Neutrophils % (A) 80 %; Platelet Count 256 k/uL (150-450); RBC 4.03 m/uL (3.80-5.40); RDW 17.2 % (11.5-15.5); WBC 11.7 k/uL (3.8-10.6)
[2019-08-02 19:35] LABS: HGB 11.3 gm/dL (11.4-16.0)
[2019-08-02 19:41] LABS: Albumin 4.2 g/dL (3.5-5.0); Calcium 10.7 mg/dL (8.4-10.2); Potassium 5.4 mmol/L (3.5-5.1); Total Bilirubin 0.6 mg/dL (0.2-1.3); Total Protein 7.6 g/dL (6.3-8.2)
--- NOTE | 2019-08-02 20:51 | XR ---
PROCEDURE: XR lumbosacral spine min 5V - 3V DATE AND TIME: 08/02/2019 7:59 PM CLINICAL INDICATION: fall, lumbar pain TECHNIQUE: Department protocol COMPARISON: None FINDINGS: There is no fracture or malalignment. The soft tissues are unremarkable. IMPRESSION: NO ACUTE PROCESS.
--- NOTE | 2019-08-02 20:51 | XR ---
EXAMINATION: XR chest 2V DATE AND TIME: 08/02/2019 7:58 PM CLINICAL INDICATION: pain after fall, fever TECHNIQUE: AP and lateral COMPARISON: 06/09/2019 FINDINGS: Since prior study the pleural effusions have regressed considerably, with associated modera te improvement in the overall lung inflation pattern. There are no abnormal gas collections. Mildly enlarged cardiac silhouette redemonstrated. No acute skeletal or soft tissue findings. IMPRESSION: INTERVAL RADIOGRAPHIC IMPROVEMENT.
[2019-08-02 20:54] VITALS: RESP 20
[2019-08-02 21:25] LABS: Appearance,Urine Clear (Clear); Bilirubin,Urine Negative (Negative); Blood,Urine Negative (Negative); Color,Urine Yellow; Glucose,Urine (UA) Negative (Negative); Ketones,Urine Trace (Negative); Leukocyte Esterase,Urine Trace (Negative); Nitrite,Urine Negative (Negative); Protein,Urine Negative (Negative); RBC,Urine 1 /hpf (0-5); Specific Gravity,Urine 1.012 (1.001-1.035); Squamous Epithelial Cell,Urine 1 /hpf (0-4); Urobilinogen,Urine <2.0 mg/dL (<2.0)
--- NOTE | 2019-08-02 22:08 | CT ---
EXAMINATION TYPE: CT abdomen pelvis wo con DATE OF EXAM: 08/02/2019 COMPARISON: None HISTORY: abdominal/flank pain, fever CT DLP: 517.4 mGycm Automated exposure control for dose reduction was used. TECHNIQUE: Helical acquisition of images was performed from the lung bases through the pelvis. FINDINGS: Within the limitation of noncontrast CT the following observations are made. LUNG BASES: No significant abnormality is appreciated. LIVER/GB: No significant abnormality is appreciated. PANCREAS: No significant abnormality is seen. SPLEEN: No significant abnormality is seen. ADRENALS: No significant abnormality is seen. KIDNEYS: No significant abnormality is seen. PERITONEAL CAVITY: No pneumoperitoneum or peritoneal fluid. RETROPERITONEAL ADENOPATHY: None visualized REPRODUCTIVE ORGANS: No significant abnormality is seen URINARY BLADDER: No significant abnormality is seen. PELVIC ADENOPATHY: None visualized. OSSEOUS STRUCTURES: No significant abnormality is seen. BOWEL: There is an excessive volume of stool throughout the colon. No acute colonic findings. Remain yara of the bowel unremarkable. IMPRESSION: CONSTIPATION PATTERN.
[2019-08-02] MEDS ORDERED: ACET/COD 300 MG/30 MG STARTER PACK 6 TAB BTL PO STA (22:55)
[2019-08-02 23:40] VITALS: BP 122/56; PULSE 72; TEMP 98.8
== END 2019-08-02 23:40 | disposition home or self-care (01) ==
LOC: EC 17:58
DX: B34.9 Viral infection, unspecified (principal); M54.9 Dorsalgia, unspecified; K59.00 Constipation, unspecified; R51 Headache; I11.0 Hypertensive heart disease with heart failure; I50.9 Heart failure, unspecified; E11.9 Type 2 diabetes mellitus without complications; F41.9 Anxiety disorder, unspecified; Z79.01 Long term (current) use of anticoagulants; Z79.4 Long term (current) use of insulin; Z79.899 Other long term (current) drug therapy; Z79.890 Hormone replacement therapy; Z88.1 Allergy status to other antibiotic agents; Z88.8 Allergy status to other drugs, medicaments and biological substances; Z86.73 Personal history of transient ischemic attack (TIA), and cerebral infarction without residual deficits; Z82.49 Family history of ischemic heart disease and other diseases of the circulatory system; W01.0XXA Fall on same level from slipping, tripping and stumbling without subsequent striking against object, initial encounter
CPT/HCPCS: 36415; 71046; 72110; 74176; 80053; 81001; 83605; 83690; 85025; 87040; 87502; 94640; 96360; 99285

== ENCOUNTER 2019-09-23 12:53 | Inpatient (IN) | payer MEDICARE, OTHER ==
[2019-09-23] MEDS ORDERED: KETOROLAC 30 MG/ML 1 ML VIAL IVP STA (13:51)
[2019-09-23] MEDS ORDERED: SODIUM CHLORIDE 0.9% 1,000 ML IV STA (13:56)
--- NOTE | 2019-09-23 13:56 | ED ---
General Adult HPI - General Chief complaint: Abdominal Pain Stated complaint: poss UTI Time Seen by Provider: 09/23/19 13:29 Source: patient Mode of arrival: ambulatory Limitations: no limitations - History of Present Illness Initial comments: Dictation was produced using [employer] dictation software. please excuse any grammatical, word or spelling errors. Chief Complaint: 79-year-old female presents with headache, generalized weakness lower back lump. History of Present Illness: 79-year-old female she lives in a condominium in a area where there is assistance given her age. The last 4 days she's been having development of headache, lower back lump and abdominal pain. She states she's been generally weak. Patient has multiple comorbid is. Her headache she describes as dull. She does not use thunderclap nature of this headache. No vision loss numbness to her paresthesias. States rapid, pain is epigastric dull in nature. The reading symptoms. No changes after eating. She also has a lump on her right lower back she is concerned about and that is painful. When asked what her main complaint for this ER visit is today she states that it is for generalized weakness. The ROS documented in this emergency department record has been reviewed and confirmed by me. Those systems with pertinent positive or negative responses have been documented in the HPI. All other systems are other negative and/or noncontributory. PHYSICAL EXAM: General Impression: Alert and oriented x3, not in acute distress HEENT: Normocephalic atraumatic, extra-ocular movements intact, pupils equal and reactive to light bilaterally, dry mucous membranes Cardiovascular: Heart regular rate and rhythm, S1&S2 audible, no murmurs, rubs or gallops Chest: Lungs clear to auscultation bilaterally, no rhonchi, no wheeze, no rales Abdomen: Bowel sounds present, abdomen soft, non-tender, non-distended, no organomegaly Musculoskeletal: Pulses present and equal in all extremities, no peripheral edema Motor: no focal deficits noted Neurological: CN II-XII grossly intact, no focal motor or sensory deficits noted Skin: Intact with no visualized rashes, soft small 5 mm x 5 mm rubbery mass to the right lower back over the proximal coccyx Psych: Normal affect and mood ED course: 79 y Old female multiple complaints. Her main complaint generalized weakness. As upon arrival shows heart rate 103, blood pressure 87/44, pulse vital signs within acceptable limits. EKG was discussed with Dr. Rae of cardiology. Patient has right bundle branch block seen on her EKG. There is some concern about the lateral precordial leads. Dr. Rae has EKGs from this year that he can compared to today's EKGs. No concern for signs of infarction or ischemia is on the EKG. Patient furthermore does not have any chest or respiratory symptoms. Return evaluation obtained. Leukocytosis of 12.8, hemoglobin of 8.8, coag panel unremarkable. Metabolic panel shows BUN 106 and a creatinine of 2.2. Patient is critically high. Uremia. Her renal markers are higher than her usual. Likely consistent with acute kidney injury. Patient also has elevated ESR and CRP. CRP is 83 and ESR is 110. Patient does not have history of headaches. There is concern objects arteritis. Discussed patient case with neurologist Dr. Jones who recommends temporal artery biopsy. Discussed patient case with Dr. Fam who will be on consult for temporal artery biopsy. Nephrology on consult for acute kidney injury. Patient given prednisone 18H daily. Patient understandable agreeable to disposition. Patient likely dehydrated causing acute kidney injury. Patient given fluids. She has history of heart failure. Patient given gentle hydration. Cardiology consult consult for elevated troponin. EKG interpretation: Ventricular rate 82, normal sinus rhythm, bundle branch block TN interval 1:30, care is 134, QTc 453. No TN prolongation, no QTC prolong ation, no ST or T-wave changes noted. EKG compared to 06/05/2019 showing no changes. Overall, this EKG is unremarkable - Related Data Home Medications Medication Instructions Recorded Confirmed Pravastatin Sodium [Pravachol] 20 mg PO DAILY 04/23/14 09/23/19 Acetaminophen Tab [Tylenol] 650 mg PO Q6H PRN 05/20/19 09/23/19 Albuterol Nebulized [Ventolin 2.5 mg INHALATION RT-Q4H PRN 05/20/19 09/23/19 Nebulized] Apixaban [Eliquis] 5 mg PO BID 05/20/19 09/23/19 Budesonide 1 mg INHALATION RT-BID PRN 05/20/19 09/23/19 Divalproex Sodium [Depakote 500 mg PO DAILY 05/20/19 09/23/19 Sprinkle] Ferrous Sulfate [Iron (65 MG 325 mg PO BID 05/20/19 09/23/19 Elemental)] Insulin Glargine [Lantus] See Protocol SQ HS 05/20/19 09/23/19 Levothyroxine Sodium 112 mcg PO DAILY 05/20/19 09/23/19 Lisinopril [Prinivil] 5 mg PO DAILY 05/20/19 09/23/19 Magnesium Oxide 400 mg PO DAILY 05/20/19 09/23/19 Melatonin 10 mg PO HS 05/20/19 09/23/19 Sertraline [Zoloft] 50 mg PO DAILY 05/20/19 09/23/19 Sucralfate [Carafate] 1 gm PO ACHS PRN 05/20/19 09/23/19 Insulin Lispro [humaLOG Kwikpen] See Protocol SQ AC-TID 06/05/19 09/23/19 Multivitamins, Thera [Multivitamin 1 tab PO DAILY 09/23/19 09/23/19 (formulary)] [place]-3 Fatty Acids [[place]-3] 1,000 mg PO DAILY 09/23/19 09/23/19 Vitamin B Complex 1 cap PO DAILY 09/23/19 09/23/19 hydrALAZINE HCL [Apresoline] 75 mg PO TID 09/23/19 09/23/19 Previous Rx's Medication Instructions Recorded Furosemide [Lasix] 40 mg PO BID@0900,1600 tab 06/09/19 Allergies Allergy/AdvReac Type Severity Reaction Status Date / Time doxycycline calcium Allergy Anaphylaxis Verified 09/23/19 16:16 [From Vibramycin] doxycycline hyclate Allergy Anaphylaxis Verified 09/23/19 16:16 [From Vibramycin] doxycycline monohydrate Allergy Anaphylaxis Verified 09/23/19 16:16 [From Vibramycin] erythromycin base Allergy Anaphylaxis Verified 09/23/19 16:16 Iodinated Contrast Media Allergy Anaphylaxis Verified 09/23/19 16:16 [Iodinated Contrast Media - IV Dye] Review of Systems ROS Statement: Those systems with pertinent positive or pertinent negative responses have been documented in the HPI. ROS Other: All systems not noted in ROS Statement are negative. Past Medical History Past Medical History: Heart Failure, CVA/TIA, Diabetes Mellitus, Hypertension, Renal Disease Additional Past Medical History / Comment(s): TIAs 4 with previous TIA 18 months ago. Motor seizures left leg anemic, irregular heart beat; murmur History of Any Multi-Drug Resistant Organisms: None Reported Past Surgical History: Appendectomy, Hysterectomy, Orthopedic Surgery Additional Past Surgical History / Comment(s): left knee arthroscopy, cyst removal (pilonidal cyst) Past Anesthesia/Blood Transfusion Reactions: No Reported Reaction Past Psychological History: Anxiety Smoking Status: Never smoker Past Alcohol Use History: None Reported Past Drug Use History: None Reported - Past Family History Brother(s) Additional Family Medical History / Comment(s): The patient has 2 brothers and both are . One from aspiration pneumonia with history of stomach cancer. A second brother from melanoma. Father Family Medical History: Congestive Heart Failure (CHF) Additional Family Medical History / Comment(s): Father at age 65 from heart failure. Mother Family Medical History: Congestive Heart Failure (CHF) Additional Family Medical History / Comment(s): Mother at age 92 from heart failure and had previous history of coronary artery disease with several MIs. Sister(s) Family Medical History: Cancer Additional Family Medical History / Comment(s): The patient has 2 sisters. One is stage IV breast cancer survivor and history of diverticulitis. Second sister has many medical problems. Son(s) Family Medical History: Hypertension General Exam Limitations: no limitations Course Vital Signs 09/23/19 09/23/19 09/23/19 13:10 15:50 15:54 Temperature 99.6 F 98.2 F Pulse Rate 103 H 78 Respiratory 20 16 Rate Blood Pressure 87/44 110/64 O2 Sat by Pulse 99 100 Oximetry Medical Decision Making - Lab Data Result diagrams: 09/23/19 14:35 09/23/19 14:35 Lab Results 09/23/19 09/23/19 09/23/19 Range/Units 14:35 14:35 14:35 WBC 12.8 H (3.8-10.6) k/uL RBC 2.93 L (3.80-5.40) m/uL Hgb 8.8 L D (11.4-16.0) gm/dL Hct 25.7 L (34.0-46.0) % MCV 87.6 (80.0-100.0) fL MCH 30.0 (25.0-35.0) pg MCHC 34.2 (31.0-37.0) g/dL RDW 16.8 H (11.5-15.5) % Plt Count 263 (150-450) k/uL Neutrophils % 86 % Lymphocytes % 7 % Monocytes % 5 % Eosinophils % 1 % Basophils % 0 % Neutrophils # 11.0 H (1.3-7.7) k/uL Lymphocytes # 0.9 L (1.0-4.8) k/uL Monocytes # 0.7 (0-1.0) k/uL Eosinophils # 0.1 (0-0.7) k/uL Basophils # 0.1 (0-0.2) k/uL Anisocytosis Slight ESR 110 H (0-20) mm/hr PT (9.0-12.0) sec INR (<1.2) APTT (22.0-30.0) sec Sodium 135 L (137-145) mmol/L Potassium 4.9 (3.5-5.1) mmol/L Chloride 100 (98-107) mmol/L Carbon Dioxide 22 (22-30) mmol/L Anion Gap 13 mmol/L BUN 106 H* (7-17) mg/dL Creatinine 2.22 H (0.52-1.04) mg/dL Est GFR (CKD-EPI)AfAm 24 (>60 ml/min/1.73 sqM) Est GFR (CKD-EPI)NonAf 21 (>60 ml/min/1.73 sqM) Glucose 219 H (74-99) mg/dL Plasma Lactic Acid Cam 1.2 (0.7-2.0) mmol/L Calcium 10.2 (8.4-10.2) mg/dL Phosphorus 4.0 (2.5-4.5) mg/dL Magnesium 2.4 H (1.6-2.3) mg/dL Total Bilirubin 0.4 (0.2-1.3) mg/dL AST 14 (14-36) U/L ALT 10 (9-52) U/L Alkaline Phosphatase 57 (38-126) U/L Troponin I (0.000-0.034) ng/mL C-Reactive Protein 83.1 H (<10.0) mg/L Total Protein 6.6 (6.3-8.2) g/dL Albumin 3.7 (3.5-5.0) g/dL 09/23/19 09/23/19 Range/Units 14:35 14:35 WBC (3.8-10.6) k/uL RBC (3.80-5.40) m/uL Hgb (11.4-16.0) gm/dL Hct (34.0-46.0) % MCV (80.0-100.0) fL MCH (25.0-35.0) pg MCHC (31.0-37.0) g/dL RDW (11.5-15.5) % Plt Count (150-450) k/uL Neutrophils % % Lymphocytes % % Monocytes % % Eosinophils % % Basophils % % Neutrophils # (1.3-7.7) k/uL Lymphocytes # (1.0-4.8) k/uL Monocytes # (0-1.0) k/uL Eosinophils # (0-0.7) k/uL Basophils # (0-0.2) k/uL Anisocytosis ESR (0-20) mm/hr PT 11.1 (9.0-12.0) sec INR 1.0 (<1.2) APTT 29.3 (22.0-30.0) sec Sodium (137-145) mmol/L Potassium (3.5-5.1) mmol/L Chloride (98-107) mmol/L Carbon Dioxide (22-30) mmol/L Anion Gap mmol/L BUN (7-17) mg/dL Creatinine (0.52-1.04) mg/dL Est GFR (CKD-EPI)AfAm (>60 ml/min/1.73 sqM) Est GFR (CKD-EPI)NonAf (>60 ml/min/1.73 sqM) Glucose (74-99) mg/dL Plasma Lactic Acid Cam (0.7-2.0) mmol/L Calcium (8.4-10.2) mg/dL Phosphorus (2.5-4.5) mg/dL Magnesium (1.6-2.3) mg/dL Total Bilirubin (0.2-1.3) mg/dL AST (14-36) U/L ALT (9-52) U/L Alkaline Phosphatase (38-126) U/L Troponin I 0.055 H* (0.000-0.034) ng/mL C-Reactive Protein (<10.0) mg/L Total Protein (6.3-8.2) g/dL Albumin (3.5-5.0) g/dL Disposition Clinical Impression: Headache, Elevated troponin, FREYA (acute kidney injury) Disposition: ADMITTED IP TO THIS HOSP Condition: Fair Referrals: Eleazar Mills MD [Primary Care Provider] - 1-2 days Decision Time: 16:51
[2019-09-23 14:55] LABS: Anisocytosis Slight; Basophils # (A) 0.1 k/uL (0-0.2); Basophils % (A) 0 %; Eosinophils # (A) 0.1 k/uL (0-0.7); Eosinophils % (A) 1 %; HCT 25.7 % (34.0-46.0); Lymphocytes # (A) 0.9 k/uL (1.0-4.8); Lymphocytes % (A) 7 %; MCHC 34.2 g/dL (31.0-37.0); MCV 87.6 fL (80.0-100.0); Mean Platelet Volume 6.2; Monocytes # (A) 0.7 k/uL (0-1.0); Monocytes % (A) 5 %; Neutrophils % (A) 86 %; Platelet Count 263 k/uL (150-450); RBC 2.93 m/uL (3.80-5.40); RDW 16.8 % (11.5-15.5); WBC 12.8 k/uL (3.8-10.6)
[2019-09-23 14:56] LABS: HGB 8.8 gm/dL (11.4-16.0)
[2019-09-23 15:06] LABS: Albumin 3.7 g/dL (3.5-5.0); C Reactive Protein 83.1 mg/L (<10.0); Calcium 10.2 mg/dL (8.4-10.2); Magnesium 2.4 mg/dL (1.6-2.3); Potassium 4.9 mmol/L (3.5-5.1); Total Bilirubin 0.4 mg/dL (0.2-1.3); Total Protein 6.6 g/dL (6.3-8.2)
[2019-09-23 15:27] LABS: Partial Thromboplastin Time 29.3 sec (22.0-30.0); Prothrombin Time 11.1 sec (9.0-12.0)
--- NOTE | 2019-09-23 15:51 | XR ---
EXAMINATION TYPE: XR abdomen acute w cxr DATE OF EXAM: 09/23/2019 COMPARISON: NONE HISTORY: Pain TECHNIQUE: Single view of the chest and 2 views of the abdomen are submitted. FINDINGS: Chronic pleural-parenchymal density left lung base. There is no evidence for pneumoperitoneum. The bowel gas pattern is unremarkable as there is air throughout nondilated small and large bowel. No sizeable air fluid levels.No mass effects are seen. No unusual calcifications. IMPRESSION: 1. Nonspecific nonobstructive bowel gas pattern.
[2019-09-23] MEDS ORDERED: ASPIRIN 81 MG PO STA (15:56)
[2019-09-23 16:06] LABS: Erythrocyte Sedimentation Rate 110 mm/hr (0-20)
[2019-09-23] MEDS ORDERED: cefTRIAXone IN SWFI 1,000 MG/10 ML SYRINGE IVP STA (16:11)
[2019-09-23] MEDS ORDERED: predniSONE 50 MG TAB PO STA (16:16)
[2019-09-23] MEDS ORDERED: ONDANSETRON 4 MG/2 ML VIAL IVP PRN (16:46)
[2019-09-23] MEDS ORDERED: NALOXONE 0.4 MG/ML 1 ML VIAL IV PRN (16:46)
[2019-09-23] MEDS ORDERED: MORPHINE SULFATE 4 MG/ML SYRINGE IV PRN (16:46)
[2019-09-23 16:59] LABS: Appearance,Urine Cloudy (Clear); Bacteria,Urine Occasional /hpf; Bilirubin,Urine Negative (Negative); Blood,Urine Negative (Negative); Color,Urine Yellow; Glucose,Urine (UA) Negative (Negative); Ketones,Urine Negative (Negative); Leukocyte Esterase,Urine Large (Negative); Mucus,Urine Rare /hpf; Nitrite,Urine Negative (Negative); PH, Urine 5.5 (5.0-8.0); Protein,Urine Trace (Negative); Specific Gravity,Urine 1.015 (1.001-1.035); Squamous Epithelial Cell,Urine 1 /hpf (0-4); Urobilinogen,Urine <2.0 mg/dL (<2.0)
[2019-09-23] MEDS: SODIUM CHLORIDE 0.9% 1,000 ML IV SCH (17:19)
--- NOTE | 2019-09-23 17:39 | P.CNNES ---
History of Present Illness Consult date: 09/23/19 Requesting physician: Pa Palmer Reason for Consult: Rule out giant cell arteritis History of Present Illness: Patient is a 79-year-old female with no previous history of headaches, started having new onset headaches about 3-4 days ago. It involves front of the head and goes to the the back, 7/10, comes and goes. It has been getting worse and today it has been present all day long. She takes Tylenol, the headaches gets better, but then it comes back. She describes it as aching headache along with some neck pain. Denies any fever or chills or altered mental status. She also has been having low back pain for the last 4-5 days, but without any radicular features. She does not feel fever although today the temperature was slightly up 99.6 in the ER. Patient denies any jaw claudication. She has lost 10 pounds in the last 3 months. Patient states she has a diagnosis of fibromyalgia. Patient also complains of nocturia almost every hour at night. Patient underwent CBC, in which her WBC is 12.8 hemoglobin 8.8 and platelets are 263. PT/PTT normal. ESR is significantly elevated 110. Sodium 135 potassium 4.9, BUN is 106, creatinine 2.22. CRP is also elevated 83.1. UA shows large amount of leukocyte esterase, WBC 55, occasional bacteria. Patient's hemoglobin A1c was 7.0 on 06/06/2019. Patient has history of fibromyalgia. Denies any history of migraines or any headaches in the past. No head trauma. Review of Systems As mentioned in HPI. Denies diplopia, loss of vision. Denies chest pain, shortness of breath. Denies abdominal pain. Patient feels very fatigued and generalized weakness. All other review of systems unremarkable. Past Medical History Past Medical History: Heart Failure, CVA/TIA, Diabetes Mellitus, Hypertension, Renal Disease Additional Past Medical History / Comment(s): TIAs 4 with previous TIA 18 months ago. Motor seizures left leg anemic, irregular heart beat; murmur History of Any Multi-Drug Resistant Organisms: None Reported Past Surgical History: Appendectomy, Hysterectomy, Orthopedic Surgery Additional Past Surgical History / Comment(s): left knee arthroscopy, cyst removal (pilonidal cyst) Past Anesthesia/Blood Transfusion Reactions: No Reported Reaction Past Psychological History: Anxiety Smoking Status: Never smoker Past Alcohol Use History: None Reported Past Drug Use History: None Reported - Past Family History Brother(s) Additional Family Medical History / Comment(s): The patient has 2 brothers and both are . One from aspiration pneumonia with history of stomach cancer. A second brother from melanoma. Father Family Medical History: Congestive Heart Failure (CHF) Additional Family Medical History / Comment(s): Father at age 65 from heart failure. Mother Family Medical History: Congestive Heart Failure (CHF) Additional Family Medical History / Comment(s): Mother at age 92 from heart failure and had previous history of coronary artery disease with several MIs. Sister(s) Family Medical History: Cancer Additional Family Medical History / Comment(s): The patient has 2 sisters. One is stage IV breast cancer survivor and history of diverticulitis. Second sister has many medical problems. Son(s) Family Medical History: Hypertension Medications and Allergies Home Medications Medication Instructions Recorded Confirmed Type Pravastatin Sodium [Pravachol] 20 mg PO DAILY 04/23/14 09/23/19 History Acetaminophen Tab [Tylenol] 650 mg PO Q6H PRN 05/20/19 09/23/19 History Albuterol Nebulized [Ventolin 2.5 mg INHALATION RT-Q4H PRN 05/20/19 09/23/19 History Nebulized] Apixaban [Eliquis] 5 mg PO BID 05/20/19 09/23/19 History Budesonide 1 mg INHALATION RT-BID PRN 05/20/19 09/23/19 History Divalproex Sodium [Depakote 500 mg PO DAILY 05/20/19 09/23/19 History Sprinkle] Ferrous Sulfate [Iron (65 MG 325 mg PO BID 05/20/19 09/23/19 History Elemental)] Insulin Glargine [Lantus] See Protocol SQ HS 05/20/19 09/23/19 History Levothyroxine Sodium 112 mcg PO DAILY 05/20/19 09/23/19 History Lisinopril [Prinivil] 5 mg PO DAILY 05/20/19 09/23/19 History Magnesium Oxide 400 mg PO DAILY 05/20/19 09/23/19 History Melatonin 10 mg PO HS 05/20/19 09/23/19 History Sertraline [Zoloft] 50 mg PO DAILY 05/20/19 09/23/19 History Sucralfate [Carafate] 1 gm PO ACHS PRN 05/20/19 09/23/19 History Insulin Lispro [humaLOG Kwikpen] See Protocol SQ AC-TID 06/05/19 09/23/19 History Furosemide [Lasix] 40 mg PO BID@0900,1600 tab 06/09/19 09/23/19 Rx Multivitamins, Thera [Multivitamin 1 tab PO DAILY 09/23/19 09/23/19 History (formulary)] [place]-3 Fatty Acids [[place]-3] 1,000 mg PO DAILY 09/23/19 09/23/19 History Vitamin B Complex 1 cap PO DAILY 09/23/19 09/23/19 History hydrALAZINE HCL [Apresoline] 75 mg PO TID 09/23/19 09/23/19 History Allergies Allergy/AdvReac Type Severity Reaction Status Date / Time doxycycline calcium Allergy Anaphylaxis Verified 09/23/19 16:16 [From Vibramycin] doxycycline hyclate Allergy Anaphylaxis Verified 09/23/19 16:16 [From Vibramycin] doxycycline monohydrate Allergy Anaphylaxis Verified 09/23/19 16:16 [From Vibramycin] erythromycin base Allergy Anaphylaxis Verified 09/23/19 16:16 Iodinated Contrast Media Allergy Anaphylaxis Verified 09/23/19 16:16 [Iodinated Contrast Media - IV Dye] Physical Examination - Vital Signs Vital Signs: Vital Signs Temp Pulse Resp BP Pulse Ox 09/23/19 17:07 98.4 F 86 18 96/54 99 09/23/19 17:00 86 22 93/52 100 09/23/19 15:54 98.2 F 09/23/19 15:50 78 16 110/64 100 09/23/19 13:10 99.6 F 103 H 20 87/44 99 Intake and Output 09/23/19 09/23/19 09/23/19 06:59 14:59 22:59 Other: Weight 52.163 kg On examination patient is an elderly female, in no distress. Patient is alert and awake oriented to time place and person. Speech and language functions are normal. Attention and concentration and fund of knowledge is adequate. On cranial nerve examination pupils are round and reactive to light, visual bagley are full on confrontation, extraocular muscles are intact with no nystagmus. Face is symmetric and tongue protrudes to the midline. Palatal elevation and sensation normal. On muscle strength testing there is no pronator drift and the strength is normal in arms and legs distally and proximally. Reflexes are 1+ and plantars downgoing. Sensory touch is equal. No ataxia for [id number] testing. Tone and bulk of muscles normal. Results - Laboratory Findings CBC and BMP: 09/23/19 14:35 09/23/19 14:35 Abnormal Lab Findings: Abnormal Labs 09/23/19 09/23/19 09/23/19 14:35 14:35 14:35 WBC 12.8 H RBC 2.93 L Hgb 8.8 L D Hct 25.7 L RDW 16.8 H Neutrophils # 11.0 H Lymphocytes # 0.9 L ESR 110 H Sodium 135 L BUN 106 H* Creatinine 2.22 H Glucose 219 H Magnesium 2.4 H Troponin I 0.055 H* C-Reactive Protein 83.1 H Urine Appearance Urine Protein Ur Leukocyte Esterase Urine WBC Urine WBC Clumps Urine Bacteria Urine Mucus 09/23/19 16:46 WBC RBC Hgb Hct RDW Neutrophils # Lymphocytes # ESR Sodium BUN Creatinine Glucose Magnesium Troponin I C-Reactive Protein Urine Appearance Cloudy H Urine Protein Trace H Ur Leukocyte Esterase Large H Urine WBC 55 H Urine WBC Clumps Many H Urine Bacteria Occasional H Urine Mucus Rare H Assessment and Plan Assessment: * 79-year-old female admitted with new onset headaches of 4 days duration. Exact cause is uncertain. ESR and CRP are significantly elevated, therefore need to rule out temporal arteritis. Patient denies jaw claudication, although has weight loss in the last few months. Rule out other causes or intracranial process. * Acute on chronic renal failure. * Anemia Plan: * Patient has been started on prednisone 50 mg daily. * Agree with vascular surgical consultation for temporal artery biopsy. * May consider ophthalmology consult to rule out evidence of the GCA. * We will check computed tomography scan of the head without contrast to rule out any intracranial process. * Dr. Rodriguez will cover me over the weekend.
[2019-09-23 17:52] LABS: Glucose,Whole Blood 232 mg/dL (75-99)
--- NOTE | 2019-09-23 18:25 | CT ---
EXAMINATION TYPE: CT brain wo con DATE OF EXAM: 09/23/2019 COMPARISON: None HISTORY: [facility] CT DLP: 1011.4 mGycm Automated exposure control for dose reduction was used. FINDINGS: There is cerebral cortical atrophy. There is no mass effect nor midline shift. There is no sign of in tracranial hemorrhage. There is old right parietal 3 x 1.5 cm cortical infarct. There is patchy hypod ensity in the periventricular white matter. Calvarium is intact. 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
[2019-09-23] MEDS ORDERED: ALBUTEROL NEBULIZED 2.5 MG/3 ML INHALATION PRN (19:10)
[2019-09-23] MEDS ORDERED: SUCRALFATE 1 GM TAB PO PRN (19:10)
[2019-09-23] MEDS ORDERED: BUDESONIDE 1 MG/2 ML NEBU INHALATION PRN (19:10)
[2019-09-23 19:28] LABS: Glucose,Whole Blood 267 mg/dL (75-99)
[2019-09-23 21:21] LABS: Glucose,Whole Blood 297 mg/dL (75-99)
[2019-09-23] MEDS: hydrALAZINE HCL 25 MG TAB PO SCH (21:29)
[2019-09-23] MEDS: INSULIN ASPART (NovoLOG) 100 UNIT/ML VIAL SQ SCH (21:32)
[2019-09-23] MEDS: INSULIN DETEMIR (LEVEMIR) 100 UNIT/ML SYR SQ SCH (21:32)
[2019-09-23] MEDS: MELATONIN 5 MG TABLET PO SCH (21:33)
[2019-09-23] MEDS: FERROUS SULFATE 325 MG TAB PO SCH (21:33)
[2019-09-23] MEDS: APIXABAN 5 MG TAB PO SCH (21:33)
[2019-09-24 06:30] LABS: Glucose,Whole Blood 235 mg/dL (75-99)
[2019-09-24] MEDS: LEVOTHYROXINE 112 MCG TAB PO SCH (07:01)
[2019-09-24] MEDS: INSULIN ASPART (NovoLOG) 100 UNIT/ML VIAL SQ SCH ×4 (07:01→21:11)
[2019-09-24] MEDS: SODIUM CHLORIDE 0.9% 1,000 ML IV SCH ×2 (07:02→21:13)
[2019-09-24] MEDS ORDERED: NON FORMULARY DRUG (Omega-3 Fatty Acids [Omega-3] 1,000 MG) PO SCH (09:00)
[2019-09-24] MEDS ORDERED: NON FORMULARY DRUG (Vitamin B Complex [Vitamin B Complex] 1 CAP) PO SCH (09:00)
[2019-09-24] MEDS: DIVALPROEX SPRINKLE 125 MG CAP.SPRINK PO SCH (09:14)
[2019-09-24] MEDS: MULTIVITAMINS, THERA 1 EACH TAB PO SCH (09:15)
[2019-09-24] MEDS: FERROUS SULFATE 325 MG TAB PO SCH ×2 (09:15→21:11)
[2019-09-24] MEDS: PRAVASTATIN SODIUM 20 MG TAB PO SCH (09:15)
[2019-09-24] MEDS: SERTRALINE 50 MG TAB PO SCH (09:15)
[2019-09-24] MEDS: APIXABAN 5 MG TAB PO SCH (09:15)
--- NOTE | 2019-09-24 10:12 | P.GSCN ---
History of Present Illness Consult date: 09/24/19 Reason for Consult: Headaches, elevated ESR/CRP History of present illness: The patient is a 79-year-old female with a past medical history including diabetes, hypertension, heart failure, previous TIA, fibromyalgia we are asked to see for headaches, along with elevated CRP and sed rate for possible temporal artery biopsy. She states she started having this headache earlier this week. She's never had this in the past. It has not seemed to go away although at this time in the hospital she states is getting somewhat better. She has been taking Tylenol for this. She denies a fevers, chills, change in mentation. She denies any chest pains or shortness of breath this time. She was having some abdominal pain but notes that is feeling better. She denies any pain with urination. Review of Systems 14 point review of systems performed, pertinent positives and negatives per the HPI Past Medical History Past Medical History: Heart Failure, CVA/TIA, Diabetes Mellitus, Hypertension, Renal Disease Additional Past Medical History / Comment(s): TIAs 4 with previous TIA 18 months ago. Motor seizures left leg anemic, irregular heart beat; murmur, pneum History of Any Multi-Drug Resistant Organisms: None Reported Past Surgical History: Appendectomy, Hysterectomy, Orthopedic Surgery Additional Past Surgical History / Comment(s): left knee arthroscopy, cyst removal (pilonidal cyst) Past Anesthesia/Blood Transfusion Reactions: No Reported Reaction Past Psychological History: Anxiety Smoking Status: Never smoker Past Alcohol Use History: None Reported Additional Past Alcohol Use History / Comment(s): Patient is a lifelong nonsmoker, no illicit drug use, no alcohol use. Past Drug Use History: None Reported - Past Family History Brother(s) Additional Family Medical History / Comment(s): The patient has 2 brothers and both are . One from aspiration pneumonia with history of stomach cancer. A second brother from melanoma. Father Family Medical History: Congestive Heart Failure (CHF) Additional Family Medical History / Comment(s): Father at age 65 from heart failure. Mother Family Medical History: Congestive Heart Failure (CHF) Additional Family Medical History / Comment(s): Mother at age 92 from heart failure and had previous history of coronary artery disease with several MIs. Sister(s) Family Medical History: Cancer Additional Family Medical History / Comment(s): The patient has 2 sisters. One is stage IV breast cancer survivor and history of diverticulitis. Second sister has many medical problems. Son(s) Family Medical History: Hypertension Medications and Allergies Home Medications Medication Instructions Recorded Confirmed Type Pravastatin Sodium [Pravachol] 20 mg PO DAILY 04/23/14 09/23/19 History Acetaminophen Tab [Tylenol] 650 mg PO Q6H PRN 05/20/19 09/23/19 History Albuterol Nebulized [Ventolin 2.5 mg INHALATION RT-Q4H PRN 05/20/19 09/23/19 History Nebulized] Apixaban [Eliquis] 5 mg PO BID 05/20/19 09/23/19 History Budesonide 1 mg INHALATION RT-BID PRN 05/20/19 09/23/19 History Divalproex Sodium [Depakote 500 mg PO DAILY 05/20/19 09/23/19 History Sprinkle] Ferrous Sulfate [Iron (65 MG 325 mg PO BID 05/20/19 09/23/19 History Elemental)] Insulin Glargine [Lantus] See Protocol SQ HS 05/20/19 09/23/19 History Levothyroxine Sodium 112 mcg PO DAILY 05/20/19 09/23/19 History Lisinopril [Prinivil] 5 mg PO DAILY 05/20/19 09/23/19 History Magnesium Oxide 400 mg PO DAILY 05/20/19 09/23/19 History Melatonin 10 mg PO HS 05/20/19 09/23/19 History Sertraline [Zoloft] 50 mg PO DAILY 05/20/19 09/23/19 History Sucralfate [Carafate] 1 gm PO ACHS PRN 05/20/19 09/23/19 History Insulin Lispro [humaLOG Kwikpen] See Protocol SQ AC-TID 06/05/19 09/23/19 History Furosemide [Lasix] 40 mg PO BID@0900,1600 tab 06/09/19 09/23/19 Rx Multivitamins, Thera [Multivitamin 1 tab PO DAILY 09/23/19 09/23/19 History (formulary)] [place]-3 Fatty Acids [[place]-3] 1,000 mg PO DAILY 09/23/19 09/23/19 History Vitamin B Complex 1 cap PO DAILY 09/23/19 09/23/19 History hydrALAZINE HCL [Apresoline] 75 mg PO TID 09/23/19 09/23/19 History Allergies Allergy/AdvReac Type Severity Reaction Status Date / Time doxycycline calcium Allergy Anaphylaxis Verified 09/23/19 16:16 [From Vibramycin] doxycycline hyclate Allergy Anaphylaxis Verified 09/23/19 16:16 [From Vibramycin] doxycycline monohydrate Allergy Anaphylaxis Verified 09/23/19 16:16 [From Vibramycin] erythromycin base Allergy Anaphylaxis Verified 09/23/19 16:16 Iodinated Contrast Media Allergy Anaphylaxis Verified 09/23/19 16:16 [Iodinated Contrast Media - IV Dye] Surgical - Exam Vital Signs Temp Pulse Resp BP Pulse Ox 99.6 F 103 H 20 87/44 99 09/23/19 13:10 09/23/19 13:10 09/23/19 13:10 09/23/19 13:10 09/23/19 13:10 Gen. pleasant cooperative female in no acute distress. HEENT is no cephalic, atraumatic, excellent motion intact. Palpable temporal arteries bilaterally. Neck is supple, trachea is midline. Heart is regular at this time. Lungs are clear although diminished breath sounds. Abdomen is soft, minimal suprapubic tenderness, nondistended stented. Extremities show no clubbing, cyanosis or edema. Normal mood and affect. Cranial nerves II through XII grossly intact. Results Labs and CT brain reviewed - Labs 09/23/19 14:35 09/23/19 14:35 Abnormal Lab Results - Last 24 Hours (Table) 09/23/19 09/23/19 09/23/19 Range/Units 14:35 14:35 14:35 WBC 12.8 H (3.8-10.6) k/uL RBC 2.93 L (3.80-5.40) m/uL Hgb 8.8 L D (11.4-16.0) gm/dL Hct 25.7 L (34.0-46.0) % RDW 16.8 H (11.5-15.5) % Neutrophils # 11.0 H (1.3-7.7) k/uL Lymphocytes # 0.9 L (1.0-4.8) k/uL ESR 110 H (0-20) mm/hr Sodium 135 L (137-145) mmol/L BUN 106 H* (7-17) mg/dL Creatinine 2.22 H (0.52-1.04) mg/dL Glucose 219 H (74-99) mg/dL POC Glucose (mg/dL) (75-99) mg/dL Magnesium 2.4 H (1.6-2.3) mg/dL Troponin I 0.055 H* (0.000-0.034) ng/mL C-Reactive Protein 83.1 H (<10.0) mg/L Urine Appearance (Clear) Urine Protein (Negative) Ur Leukocyte Esterase (Negative) Urine WBC (0-5) /hpf Urine WBC Clumps (None) /hpf Urine Bacteria (None) /hpf Urine Mucus (None) /hpf 09/23/19 09/23/19 09/23/19 Range/Units 16:46 17:50 19:27 WBC (3.8-10.6) k/uL RBC (3.80-5.40) m/uL Hgb (11.4-16.0) gm/dL Hct (34.0-46.0) % RDW (11.5-15.5) % Neutrophils # (1.3-7.7) k/uL Lymphocytes # (1.0-4.8) k/uL ESR (0-20) mm/hr Sodium (137-145) mmol/L BUN (7-17) mg/dL Creatinine (0.52-1.04) mg/dL Glucose (74-99) mg/dL POC Glucose (mg/dL) 232 H 267 H (75-99) mg/dL Magnesium (1.6-2.3) mg/dL Troponin I (0.000-0.034) ng/mL C-Reactive Protein (<10.0) mg/L Urine Appearance Cloudy H (Clear) Urine Protein Trace H (Negative) Ur Leukocyte Esterase Large H (Negative) Urine WBC 55 H (0-5) /hpf Urine WBC Clumps Many H (None) /hpf Urine Bacteria Occasional H (None) /hpf Urine Mucus Rare H (None) /hpf 09/23/19 09/24/19 Range/Units 21:20 06:29 WBC (3.8-10.6) k/uL RBC (3.80-5.40) m/uL Hgb (11.4-16.0) gm/dL Hct (34.0-46.0) % RDW (11.5-15.5) % Neutrophils # (1.3-7.7) k/uL Lymphocytes # (1.0-4.8) k/uL ESR (0-20) mm/hr Sodium (137-145) mmol/L BUN (7-17) mg/dL Creatinine (0.52-1.04) mg/dL Glucose (74-99) mg/dL POC Glucose (mg/dL) 297 H 235 H (75-99) mg/dL Magnesium (1.6-2.3) mg/dL Troponin I (0.000-0.034) ng/mL C-Reactive Protein (<10.0) mg/L Urine Appearance (Clear) Urine Protein (Negative) Ur Leukocyte Esterase (Negative) Urine WBC (0-5) /hpf Urine WBC Clumps (None) /hpf Urine Bacteria (None) /hpf Urine Mucus (None) /hpf Microbiology - Last 24 Hours (Table) 09/23/19 16:46 Urine Culture - Preliminary Urine,Catheterized Diabetes panel 09/23/19 Range/Units 14:35 Sodium 135 L (137-145) mmol/L Potassium 4.9 (3.5-5.1) mmol/L Chloride 100 (98-107) mmol/L Carbon Dioxide 22 (22-30) mmol/L BUN 106 H* (7-17) mg/dL Creatinine 2.22 H (0.52-1.04) mg/dL Glucose 219 H (74-99) mg/dL Calcium 10.2 (8.4-10.2) mg/dL AST 14 (14-36) U/L ALT 10 (9-52) U/L Alkaline Phosphatase 57 (38-126) U/L Total Protein 6.6 (6.3-8.2) g/dL Albumin 3.7 (3.5-5.0) g/dL Calcium panel 09/23/19 Range/Units 14:35 Calcium 10.2 (8.4-10.2) mg/dL Phosphorus 4.0 (2.5-4.5) mg/dL Albumin 3.7 (3.5-5.0) g/dL Pituitary panel 09/23/19 Range/Units 14:35 Sodium 135 L (137-145) mmol/L Potassium 4.9 (3.5-5.1) mmol/L Chloride 100 (98-107) mmol/L Carbon Dioxide 22 (22-30) mmol/L BUN 106 H* (7-17) mg/dL Creatinine 2.22 H (0.52-1.04) mg/dL Glucose 219 H (74-99) mg/dL Calcium 10.2 (8.4-10.2) mg/dL Adrenal panel 09/23/19 Range/Units 14:35 Sodium 135 L (137-145) mmol/L Potassium 4.9 (3.5-5.1) mmol/L Chloride 100 (98-107) mmol/L Carbon Dioxide 22 (22-30) mmol/L BUN 106 H* (7-17) mg/dL Creatinine 2.22 H (0.52-1.04) mg/dL Glucose 219 H (74-99) mg/dL Calcium 10.2 (8.4-10.2) mg/dL Total Bilirubin 0.4 (0.2-1.3) mg/dL AST 14 (14-36) U/L ALT 10 (9-52) U/L Alkaline Phosphatase 57 (38-126) U/L Total Protein 6.6 (6.3-8.2) g/dL Albumin 3.7 (3.5-5.0) g/dL Assessment and Plan Assessment: #1 new-onset headache #2 elevated CRP/sed rate #3 type 2 diabetes, insulin-dependent #4 urinary frequency #5 atrial fibrillation on anticoagulation #6 fibromyalgia #7 congestive heart failure #8 acute on chronic kidney disease Plan: At this time will allow the patient medical stabilization and further workup and evaluation for her FREYA and possible UTI. We will plan to proceed with the temporal artery biopsy, likely on the if all other issues stabilized. Continue steroids per Neuro recs. Discussed plan with patient and nursing. Patient seemingly understands and is willing to proceed with the plan. D/W Nephro.
--- NOTE | 2019-09-24 10:27 | P.NPCON ---
History of Present Illness - Reason for Consult Consult date: 09/24/19 acute renal failure - Chief Complaint Acute kidney injury - History of Present Illness This is a 79-year-old female known to us with chronic kidney disease. She came in because of headache for about 4 days. Possibility of temporal arteritis is being considered by the neurology service. She is seen because of an element of acute kidney injury. Supposedly just before this episodes of headache she went to see her primary physician and her blood pressure was slightly high she is unaware of the number. Her medications were increased but no new medications are added details are not available. She denies any mastication pain, she has low neck pain but no shoulder pain or any other arthritis. Denies any rash. No chest pain no change in her vision she is able to walk with a walker which is unchanged. No chest pain no cough no epistaxis hemoptysis. No dysuria, she does have nocturnal frequency for some time now Her C-reactive protein is elevated at 83 mg/L normal being less than 10. Patient is known with chronic kidney disease secondary to nephrosclerosis stage III, she is also known with type 2 diabetes hyperlipidemia seizure disorder hypothyroidism and multiple TIAs. Past Medical History Past Medical History: Heart Failure, CVA/TIA, Diabetes Mellitus, Hypertension, Renal Disease Additional Past Medical History / Comment(s): TIAs 4 with previous TIA 18 months ago. Motor seizures left leg anemic, irregular heart beat; murmur, pneum History of Any Multi-Drug Resistant Organisms: None Reported Past Surgical History: Appendectomy, Hysterectomy, Orthopedic Surgery Additional Past Surgical History / Comment(s): left knee arthroscopy, cyst removal (pilonidal cyst) Past Anesthesia/Blood Transfusion Reactions: No Reported Reaction Past Psychological History: Anxiety Smoking Status: Never smoker Past Alcohol Use History: None Reported Additional Past Alcohol Use History / Comment(s): Patient is a lifelong nonsmoker, no illicit drug use, no alcohol use. Past Drug Use History: None Reported - Past Family History Brother(s) Additional Family Medical History / Comment(s): The patient has 2 brothers and both are . One from aspiration pneumonia with history of stomach cancer. A second brother from melanoma. Father Family Medical History: Congestive Heart Failure (CHF) Additional Family Medical History / Comment(s): Father at age 65 from heart failure. Mother Family Medical History: Congestive Heart Failure (CHF) Additional Family Medical History / Comment(s): Mother at age 92 from heart failure and had previous history of coronary artery disease with several MIs. Sister(s) Family Medical History: Cancer Additional Family Medical History / Comment(s): The patient has 2 sisters. One is stage IV breast cancer survivor and history of diverticulitis. Second sister has many medical problems. Son(s) Family Medical History: Hypertension Medications and Allergies Home Medications Medication Instructions Recorded Confirmed Type Pravastatin Sodium [Pravachol] 20 mg PO DAILY 04/23/14 09/23/19 History Acetaminophen Tab [Tylenol] 650 mg PO Q6H PRN 05/20/19 09/23/19 History Albuterol Nebulized [Ventolin 2.5 mg INHALATION RT-Q4H PRN 05/20/19 09/23/19 History Nebulized] Apixaban [Eliquis] 5 mg PO BID 05/20/19 09/23/19 History Budesonide 1 mg INHALATION RT-BID PRN 05/20/19 09/23/19 History Divalproex Sodium [Depakote 500 mg PO DAILY 05/20/19 09/23/19 History Sprinkle] Ferrous Sulfate [Iron (65 MG 325 mg PO BID 05/20/19 09/23/19 History Elemental)] Insulin Glargine [Lantus] See Protocol SQ HS 05/20/19 09/23/19 History Levothyroxine Sodium 112 mcg PO DAILY 05/20/19 09/23/19 History Lisinopril [Prinivil] 5 mg PO DAILY 05/20/19 09/23/19 History Magnesium Oxide 400 mg PO DAILY 05/20/19 09/23/19 History Melatonin 10 mg PO HS 05/20/19 09/23/19 History Sertraline [Zoloft] 50 mg PO DAILY 05/20/19 09/23/19 History Sucralfate [Carafate] 1 gm PO ACHS PRN 05/20/19 09/23/19 History Insulin Lispro [humaLOG Kwikpen] See Protocol SQ AC-TID 06/05/19 09/23/19 History Furosemide [Lasix] 40 mg PO BID@0900,1600 tab 06/09/19 09/23/19 Rx Multivitamins, Thera [Multivitamin 1 tab PO DAILY 09/23/19 09/23/19 History (formulary)] [place]-3 Fatty Acids [[place]-3] 1,000 mg PO DAILY 09/23/19 09/23/19 History Vitamin B Complex 1 cap PO DAILY 09/23/19 09/23/19 History hydrALAZINE HCL [Apresoline] 75 mg PO TID 09/23/19 09/23/19 History Allergies Allergy/AdvReac Type Severity Reaction Status Date / Time doxycycline calcium Allergy Anaphylaxis Verified 09/23/19 16:16 [From Vibramycin] doxycycline hyclate Allergy Anaphylaxis Verified 09/23/19 16:16 [From Vibramycin] doxycycline monohydrate Allergy Anaphylaxis Verified 09/23/19 16:16 [From Vibramycin] erythromycin base Allergy Anaphylaxis Verified 09/23/19 16:16 Iodinated Contrast Media Allergy Anaphylaxis Verified 09/23/19 16:16 [Iodinated Contrast Media - IV Dye] Physical Exam Vitals: Vital Signs Temp Pulse Pulse Resp BP BP BP 09/24/19 08:00 97.4 F L 67 16 99/54 09/24/19 04:00 96.9 F L 70 18 99/58 09/24/19 00:00 96.4 F L 69 18 92/52 09/23/19 20:00 96.7 F L 76 18 92/44 97/55 09/23/19 18:00 97.0 F L 95 18 107/53 09/23/19 17:07 98.4 F 86 18 96/54 09/23/19 17:00 86 22 93/52 09/23/19 15:54 98.2 F 09/23/19 15:50 78 16 110/64 09/23/19 13:10 99.6 F 103 H 20 87/44 Pulse Ox 09/24/19 08:00 98 09/24/19 04:00 98 09/24/19 00:00 96 09/23/19 20:00 98 09/23/19 18:00 96 09/23/19 17:07 99 09/23/19 17:00 100 09/23/19 15:54 09/23/19 15:50 100 09/23/19 13:10 99 Intake and Output 09/23/19 09/24/19 09/24/19 22:59 06:59 14:59 Intake Total 360 360 Output Total 200 Balance 360 -200 360 Intake: Oral 360 360 Output: Urine 200 Other: Voiding Method Bedpan Bedside Commode Weight 55 kg On examination is awake alert oriented comfortable HEENT exam no JVP neck is supple no facial asymmetry. Temporal arteries R arteries are not tender. Lungs are clear to auscultation good air entry bilaterally Heart sounds are unremarkable for any murmur rub gallop Abdomen soft nontender no masses felt Extremity exam was no edema No rash noted Neurologically awake alert oriented. No focal motor deficit Results - Lab Results Most recent lab results Calcium 10.2 mg/dL (8.4-10.2) 09/23/19 14:35 Phosphorus 4.0 mg/dL (2.5-4.5) 09/23/19 14:35 Magnesium 2.4 mg/dL (1.6-2.3) H 09/23/19 14:35 09/23/19 14:35 09/23/19 14:35 Assessment and Plan Assessment: Impression 1. Acute kidney injury from low blood pressure, subsequent to recent increased blood pressure medications. Blood pressure in the 80s to 90s. Creatinine came up to be 2.2 on admission yesterday. 2. Chronic kidney disease stage III secondary to nephrosclerosis, baseline creatinine 1.17 as of 05/30/2019 and fluctuates between 0.89 dated 11/08/2018 which is the lowest to 1.7 dated 06/08/2019 when she was admitted with acute kidney injury. 3. Diabetes mellitus, with trace proteinuria, possible early diabetic nephropathy. Proteinuria has not been quantified 4. Admitted with headache and possible temporal arteritis although very atypical presentation. Short history of headache off about 4 days. High C- reactive protein. 5. Mild hyponatremia from acute kidney injury sodium is 135. 6. Anemia of chronic kidney disease, rule out in this deficiency Recommendation 1. Normal saline 75 2. Hold lisinopril if pressure is less than 100. 3. Check iron saturation. 4. Target blood pressure is 110 to 1:30 5. Check urine protein to creatinine ratio. 6. If creatinine does not improve with hydration and improvement in blood pressure would consider further workup of the pyuria. 7. Avoid any nephrotoxic medication including Toradol
[2019-09-24] MEDS: LISINOPRIL 5 MG TAB PO SCH (10:54)
--- NOTE | 2019-09-24 10:56 | P.CRDCN ---
History of Present Illness Consult date: 09/24/19 History of present illness: This is a 79-year-old female with history of paroxysmal atrial fibrillation, chronic renal failure and anemia who was admitted to the hospital with complaints of increasing weakness and headache. Patient is seen by nephrology and also neurology. The possibility of temporal arteritis is being considered. It appears that patient may be volume depleted and patient is being given IV normal saline. Apparently she was hypotensive and lisinopril has been on hold. We are consulted because of abnormal troponin. Patient did not have any chest pain and denies any shortness of breath. At the time of my examination patient is lying flat in bed and doesn't seem to have and orthopnea. Most probably her troponin elevation is related to her renal failure. Her EKG showed sinus rhythm with intraventricular conduction delay but no acute changes. Will get another troponin value. If that doesn't show any 10 suggestive of acute coronary synd liudmila, no further cardiac workup at this time. Review of Systems As per the chart Past Medical History Past Medical History: Heart Failure, CVA/TIA, Diabetes Mellitus, Hypertension, Renal Disease Additional Past Medical History / Comment(s): TIAs 4 with previous TIA 18 months ago. Motor seizures left leg anemic, irregular heart beat; murmur, pneum History of Any Multi-Drug Resistant Organisms: None Reported Past Surgical History: Appendectomy, Hysterectomy, Orthopedic Surgery Additional Past Surgical History / Comment(s): left knee arthroscopy, cyst removal (pilonidal cyst) Past Anesthesia/Blood Transfusion Reactions: No Reported Reaction Past Psychological History: Anxiety Smoking Status: Never smoker Past Alcohol Use History: None Reported Additional Past Alcohol Use History / Comment(s): Patient is a lifelong nonsmoker, no illicit drug use, no alcohol use. Past Drug Use History: None Reported - Past Family History Brother(s) Additional Family Medical History / Comment(s): The patient has 2 brothers and both are . One from aspiration pneumonia with history of stomach cancer. A second brother from melanoma. Father Family Medical History: Congestive Heart Failure (CHF) Additional Family Medical History / Comment(s): Father at age 65 from heart failure. Mother Family Medical History: Congestive Heart Failure (CHF) Additional Family Medical History / Comment(s): Mother at age 92 from heart failure and had previous history of coronary artery disease with several MIs. Sister(s) Family Medical History: Cancer Additional Family Medical History / Comment(s): The patient has 2 sisters. One is stage IV breast cancer survivor and history of diverticulitis. Second sister has many medical problems. Son(s) Family Medical History: Hypertension Medications and Allergies Home Medications Medication Instructions Recorded Confirmed Type Pravastatin Sodium [Pravachol] 20 mg PO DAILY 04/23/14 09/23/19 History Acetaminophen Tab [Tylenol] 650 mg PO Q6H PRN 05/20/19 09/23/19 History Albuterol Nebulized [Ventolin 2.5 mg INHALATION RT-Q4H PRN 05/20/19 09/23/19 History Nebulized] Apixaban [Eliquis] 5 mg PO BID 05/20/19 09/23/19 History Budesonide 1 mg INHALATION RT-BID PRN 05/20/19 09/23/19 History Divalproex Sodium [Depakote 500 mg PO DAILY 05/20/19 09/23/19 History Sprinkle] Ferrous Sulfate [Iron (65 MG 325 mg PO BID 05/20/19 09/23/19 History Elemental)] Insulin Glargine [Lantus] See Protocol SQ HS 05/20/19 09/23/19 History Levothyroxine Sodium 112 mcg PO DAILY 05/20/19 09/23/19 History Lisinopril [Prinivil] 5 mg PO DAILY 05/20/19 09/23/19 History Magnesium Oxide 400 mg PO DAILY 05/20/19 09/23/19 History Melatonin 10 mg PO HS 05/20/19 09/23/19 History Sertraline [Zoloft] 50 mg PO DAILY 05/20/19 09/23/19 History Sucralfate [Carafate] 1 gm PO ACHS PRN 05/20/19 09/23/19 History Insulin Lispro [humaLOG Kwikpen] See Protocol SQ AC-TID 06/05/19 09/23/19 History Furosemide [Lasix] 40 mg PO BID@0900,1600 tab 06/09/19 09/23/19 Rx Multivitamins, Thera [Multivitamin 1 tab PO DAILY 09/23/19 09/23/19 History (formulary)] [place]-3 Fatty Acids [[place]-3] 1,000 mg PO DAILY 09/23/19 09/23/19 History Vitamin B Complex 1 cap PO DAILY 09/23/19 09/23/19 History hydrALAZINE HCL [Apresoline] 75 mg PO TID 09/23/19 09/23/19 History Allergies Allergy/AdvReac Type Severity Reaction Status Date / Time doxycycline calcium Allergy Anaphylaxis Verified 09/23/19 16:16 [From Vibramycin] doxycycline hyclate Allergy Anaphylaxis Verified 09/23/19 16:16 [From Vibramycin] doxycycline monohydrate Allergy Anaphylaxis Verified 09/23/19 16:16 [From Vibramycin] erythromycin base Allergy Anaphylaxis Verified 09/23/19 16:16 Iodinated Contrast Media Allergy Anaphylaxis Verified 09/23/19 16:16 [Iodinated Contrast Media - IV Dye] Physical Exam Vitals: Vital Signs Temp Pulse Pulse Resp BP BP BP 09/24/19 08:00 97.4 F L 67 16 99/54 09/24/19 04:00 96.9 F L 70 18 99/58 09/24/19 00:00 96.4 F L 69 18 92/52 09/23/19 20:00 96.7 F L 76 18 92/44 97/55 09/23/19 18:00 97.0 F L 95 18 107/53 09/23/19 17:07 98.4 F 86 18 96/54 09/23/19 17:00 86 22 93/52 09/23/19 15:54 98.2 F 09/23/19 15:50 78 16 110/64 09/23/19 13:10 99.6 F 103 H 20 87/44 Pulse Ox 09/24/19 08:00 98 09/24/19 04:00 98 09/24/19 00:00 96 09/23/19 20:00 98 09/23/19 18:00 96 09/23/19 17:07 99 09/23/19 17:00 100 09/23/19 15:54 09/23/19 15:50 100 09/23/19 13:10 99 Intake and Output 09/23/19 09/24/19 09/24/19 22:59 06:59 14:59 Intake Total 360 360 Output Total 200 100 Balance 360 -200 260 Intake: Oral 360 360 Output: Urine 200 100 Other: Voiding Method Bedpan Bedside Commode Weight 55 kg GENERAL EXAM: Patient is alert and oriented and doesn't appear to be in any acute distress HEENT: Normocephalic. Normal reaction of pupils, equal size, normal range of extraocular motion. No erythema or exudates in the throat. NECK: No masses, no nuchal rigidity. CHEST: No chest wall deformity. LUNGS: Equal air entry with no crackles or wheeze. HEART: S1 and S2 normal. Soft systolic murmur in the aortic area ABDOMEN: No hepatosplenomegaly, normal bowel sounds, no guarding or rigidity. SKIN: No rashes CENTRAL NERVOUS SYSTEM: No focal deficits. EXTREMITIES: No cyanosis, clubbing or edema. Results 09/23/19 14:35 09/23/19 14:35 Cardiac Enzymes 09/23/19 09/23/19 Range/Units 14:35 14:35 AST 14 (14-36) U/L Troponin I 0.055 H* (0.000-0.034) ng/mL Coagulation 09/23/19 Range/Units 14:35 PT 11.1 (9.0-12.0) sec APTT 29.3 (22.0-30.0) sec CBC 09/23/19 Range/Units 14:35 WBC 12.8 H (3.8-10.6) k/uL RBC 2.93 L (3.80-5.40) m/uL Hgb 8.8 L D (11.4-16.0) gm/dL Hct 25.7 L (34.0-46.0) % Plt Count 263 (150-450) k/uL Comprehensive Metabolic Panel 09/23/19 Range/Units 14:35 Sodium 135 L (137-145) mmol/L Potassium 4.9 (3.5-5.1) mmol/L Chloride 100 (98-107) mmol/L Carbon Dioxide 22 (22-30) mmol/L BUN 106 H* (7-17) mg/dL Creatinine 2.22 H (0.52-1.04) mg/dL Glucose 219 H (74-99) mg/dL Calcium 10.2 (8.4-10.2) mg/dL AST 14 (14-36) U/L ALT 10 (9-52) U/L Alkaline Phosphatase 57 (38-126) U/L Total Protein 6.6 (6.3-8.2) g/dL Albumin 3.7 (3.5-5.0) g/dL Current Medications Generic Name Dose Route Start Last Admin Trade Name Freq PRN Reason Stop Dose Admin Acetaminophen 650 mg 09/23/19 16:46 Tylenol Tab PO Q6HR PRN Mild Pain or Fever > 100.5 Albuterol Sulfate 2.5 mg 09/23/19 19:10 Ventolin Nebulized INHALATION RT-Q4H PRN Shortness Of Breath Apixaban 5 mg 09/23/19 21:00 09/24/19 09:15 Eliquis PO 5 mg BID JC Administration Budesonide 1 mg 09/23/19 19:10 Pulmicort INHALATION RT-BID PRN Shortness Of Breath Divalproex Sodium 500 mg 09/24/19 09:00 09/24/19 09:14 Depakote Sprinkle PO 500 mg DAILY JC Administration Ferrous Sulfate 325 mg 09/23/19 21:00 09/24/19 09:15 Feosol PO 325 mg BID JC Administration Hydralazine HCl 75 mg 09/23/19 22:00 09/23/19 21:29 Apresoline PO Not Given TID JC Sodium Chloride 1,000 mls @ 80 mls/hr 09/23/19 17:00 09/24/19 07:02 Saline 0.9% IV 80 mls/hr .[id number] JC Administration Insulin Aspart 0 unit 09/23/19 21:00 09/24/19 07:01 Novolog SQ 3 unit ACHS JC Administration Protocol Insulin Detemir 10 unit 09/23/19 21:00 09/23/19 21:32 Levemir SQ 10 unit HS JC Administration Levothyroxine Sodium 112 mcg 09/24/19 06:30 09/24/19 07:01 Synthroid PO 112 mcg DAILY@0630 JC Administration Lisinopril 5 mg 09/24/19 09:00 Zestril PO DAILY JC Melatonin 10 mg 09/23/19 21:00 09/23/19 21:33 Melatonin PO 10 mg HS JC Administration Morphine Sulfate 4 mg 09/23/19 16:46 Morphine Sulfate (Inj) IV Q4HR PRN Severe Pain Multivitamins 1 each 09/24/19 09:00 09/24/19 09:15 Theragran PO 1 each DAILY JC Administration Naloxone HCl 0.2 mg 09/23/19 16:46 Narcan IV Q2M PRN Opioid Reversal Ondansetron HCl 4 mg 09/23/19 16:46 Zofran IVP Q8HR PRN Nausea And Vomiting Pravastatin Sodium 20 mg 09/24/19 09:00 09/24/19 09:15 Pravachol PO 20 mg DAILY JC Administration Sertraline HCl 50 mg 09/24/19 09:00 09/24/19 09:15 Zoloft PO 50 mg DAILY JC Administration Sucralfate 1 gm 09/23/19 19:10 Carafate PO ACHS PRN GI Upset Intake and Output 09/23/19 09/24/19 09/24/19 22:59 06:59 14:59 Intake Total 360 360 Output Total 200 100 Balance 360 -200 260 Intake: Oral 360 360 Output: Urine 200 100 Other: Voiding Method Bedpan Bedside Commode Weight 55 kg 09/23/19 14:35 09/23/19 14:35 EKG Interpretations (text) Sinus rhythm with a right bundle branch block Assessment and Plan (1) Elevated troponin Current Visit: Yes Status: Acute Code(s): R79.89 - OTHER SPECIFIED ABNORMAL FINDINGS OF BLOOD CHEMISTRY SNOMED Code(s): 156651044 (2) Congestive heart failure Current Visit: No Status: Acute Code(s): I50.9 - HEART FAILURE, UNSPECIFIED SNOMED Code(s): 81080401 (3) HTN (hypertension) Current Visit: No Status: Acute Code(s): I10 - ESSENTIAL (PRIMARY) HYPERTENSION SNOMED Code(s): 61624920 (4) Renal insufficiency syndrome Current Visit: No Status: Acute Code(s): N28.9 - DISORDER OF KIDNEY AND URETER, UNSPECIFIED SNOMED Code(s): 802613598 (5) Paroxysmal atrial fibrillation Current Visit: Yes Status: Acute Code(s): I48.0 - PAROXYSMAL ATRIAL FIBRILLATION SNOMED Code(s): 796919033 Plan: We'll follow the trend of the troponins. We'll get an echocardiogram. Continue the current management. Further examination depend upon the clinical course
[2019-09-24] MEDS ORDERED: SENNOSIDES-DOCUSATE SODIUM 1 EACH TAB PO PRN (11:11)
[2019-09-24] MEDS: hydrALAZINE HCL 25 MG TAB PO SCH (11:20)
[2019-09-24] MEDS: PANTOPRAZOLE 40 MG/10 ML VIAL IVP SCH ×2 (11:28→21:10)
[2019-09-24 11:33] LABS: Anisocytosis Slight; HCT 24.5 % (34.0-46.0); MCH 29.4 pg (25.0-35.0); MCHC 32.6 g/dL (31.0-37.0); Mean Platelet Volume 7.3; Platelet Count 214 k/uL (150-450); RBC 2.72 m/uL (3.80-5.40); WBC 5.9 k/uL (3.8-10.6)
[2019-09-24 11:52] LABS: Glucose,Whole Blood 297 mg/dL (75-99)
[2019-09-24] MEDS: predniSONE 20 MG TAB PO SCH (12:54)
--- NOTE | 2019-09-24 14:54 | P.PN ---
Subjective Progress Note Date: 09/24/19 The patient reports 2 weeks of headaches, involving her entire head and neck. She occasionally has neck pain however has never had a headache like this before. She denies visual changes. She denies fever. She denies numbness, tingling and weakness in her extremities. This morning, reports improvement in her headache. Objective - Vital Signs Vital signs: Vital Signs Temp 97.5 F L 09/24/19 11:51 Pulse 68 09/24/19 11:51 Resp 16 09/24/19 11:51 BP 106/55 09/24/19 11:51 Pulse Ox 99 09/24/19 11:51 Intake & Output 09/23/19 09/24/19 09/24/19 18:59 06:59 18:59 Intake Total 360 720 Output Total 200 100 Balance 360 -200 620 Weight 52.163 kg 55 kg Intake: Oral 360 720 Output: Urine 200 100 Other: Voiding Method Bedside Commode Bedside Commode - Exam The patient is reclining in the bed. She is in no acute distress. The patient denies tenderness to palpation of her temporal arteries. She does report tenderness to palpation of the occipital notches bilaterally. There is nuchal rigidity. There is mild neck pain with flexion of the right hip. There is no pain with flexion of the left hip. Pupils are equal, round and reactive to light. Visual bagley are full to confrontation. Extraocular muscles are intact. There is no nystagmus. Heart: Regular rate and rhythm - Labs CBC & Chem 7: 09/24/19 11:18 09/23/19 14:35 Labs: Abnormal Lab Results - Last 24 Hours (Table) 09/23/19 09/23/19 09/23/19 Range/Units 14:35 14:35 14:35 WBC 12.8 H (3.8-10.6) k/uL RBC 2.93 L (3.80-5.40) m/uL Hgb 8.8 L D (11.4-16.0) gm/dL Hct 25.7 L (34.0-46.0) % RDW 16.8 H (11.5-15.5) % Neutrophils # 11.0 H (1.3-7.7) k/uL Lymphocytes # 0.9 L (1.0-4.8) k/uL ESR 110 H (0-20) mm/hr Sodium 135 L (137-145) mmol/L BUN 106 H* (7-17) mg/dL Creatinine 2.22 H (0.52-1.04) mg/dL Glucose 219 H (74-99) mg/dL POC Glucose (mg/dL) (75-99) mg/dL Magnesium 2.4 H (1.6-2.3) mg/dL Troponin I 0.055 H* (0.000-0.034) ng/mL C-Reactive Protein 83.1 H (<10.0) mg/L Urine Appearance (Clear) Urine Protein (Negative) Ur Leukocyte Esterase (Negative) Urine WBC (0-5) /hpf Urine WBC Clumps (None) /hpf Urine Bacteria (None) /hpf Urine Mucus (None) /hpf 09/23/19 09/23/19 09/23/19 Range/Units 16:46 17:50 19:27 WBC (3.8-10.6) k/uL RBC (3.80-5.40) m/uL Hgb (11.4-16.0) gm/dL Hct (34.0-46.0) % RDW (11.5-15.5) % Neutrophils # (1.3-7.7) k/uL Lymphocytes # (1.0-4.8) k/uL ESR (0-20) mm/hr Sodium (137-145) mmol/L BUN (7-17) mg/dL Creatinine (0.52-1.04) mg/dL Glucose (74-99) mg/dL POC Glucose (mg/dL) 232 H 267 H (75-99) mg/dL Magnesium (1.6-2.3) mg/dL Troponin I (0.000-0.034) ng/mL C-Reactive Protein (<10.0) mg/L Urine Appearance Cloudy H (Clear) Urine Protein Trace H (Negative) Ur Leukocyte Esterase Large H (Negative) Urine WBC 55 H (0-5) /hpf Urine WBC Clumps Many H (None) /hpf Urine Bacteria Occasional H (None) /hpf Urine Mucus Rare H (None) /hpf 09/23/19 09/24/19 09/24/19 Range/Units 21:20 06:29 11:18 WBC (3.8-10.6) k/uL RBC 2.72 L (3.80-5.40) m/uL Hgb 8.0 L (11.4-16.0) gm/dL Hct 24.5 L (34.0-46.0) % RDW 17.0 H (11.5-15.5) % Neutrophils # (1.3-7.7) k/uL Lymphocytes # (1.0-4.8) k/uL ESR (0-20) mm/hr Sodium (137-145) mmol/L BUN (7-17) mg/dL Creatinine (0.52-1.04) mg/dL Glucose (74-99) mg/dL POC Glucose (mg/dL) 297 H 235 H (75-99) mg/dL Magnesium (1.6-2.3) mg/dL Troponin I (0.000-0.034) ng/mL C-Reactive Protein (<10.0) mg/L Urine Appearance (Clear) Urine Protein (Negative) Ur Leukocyte Esterase (Negative) Urine WBC (0-5) /hpf Urine WBC Clumps (None) /hpf Urine Bacteria (None) /hpf Urine Mucus (None) /hpf 09/24/19 Range/Units 11:49 WBC (3.8-10.6) k/uL RBC (3.80-5.40) m/uL Hgb (11.4-16.0) gm/dL Hct (34.0-46.0) % RDW (11.5-15.5) % Neutrophils # (1.3-7.7) k/uL Lymphocytes # (1.0-4.8) k/uL ESR (0-20) mm/hr Sodium (137-145) mmol/L BUN (7-17) mg/dL Creatinine (0.52-1.04) mg/dL Glucose (74-99) mg/dL POC Glucose (mg/dL) 297 H (75-99) mg/dL Magnesium (1.6-2.3) mg/dL Troponin I (0.000-0.034) ng/mL C-Reactive Protein (<10.0) mg/L Urine Appearance (Clear) Urine Protein (Negative) Ur Leukocyte Esterase (Negative) Urine WBC (0-5) /hpf Urine WBC Clumps (None) /hpf Urine Bacteria (None) /hpf Urine Mucus (None) /hpf Microbiology - Last 24 Hours (Table) 09/23/19 16:46 Urine Culture - Preliminary Urine,Catheterized Assessment and Plan Assessment: 1) Headache in a 79-year-old female with markedly elevated sed rate and C- reactive protein is certainly consistent with temporal arteritis. I am somewhat concerned about her nuchal rigidity and questionable Kernig's sign. 2) anemia, this can cause elevation in sed rate however not to this severity Plan: 1) continue prednisone at 60 mg daily 2) vascular surgery consultation for diagnosis 3) MRA of the brain looking for signs of inflammation Time with Patient: Less than 30 (20 minutes spent with this pt)
--- NOTE | 2019-09-24 16:00 | ECHOF ---
Referral Reason:Chest pain and cardiomyopathy MEASUREMENTS -------- HEIGHT: 162.6 cm WEIGHT: 54.9 kg BP: 99/54 RVIDd: 2.7 cm (< 3.3) IVSd: 1.3 cm (0.6 - 1.1) LVIDd: 3.7 cm (3.9 - 5.3) LVPWd: 1.3 cm (0.6 - 1.1) IVSs: 1.5 cm LVIDs: 2.6 cm LVPWs: 1.4 cm LA Diam: 4.0 cm (2.7 - 3.8) LAESV Index (A-L): 29.99 ml/m Ao Diam: 2.8 cm (2.0 - 3.7) AV Cusp: 1.7 cm (1.5 - 2.6) MV EXCURSION: 12.865 mm (> 18.000) MV EF SLOPE: 20 mm/s (70 - 150) EPSS: 0.6 cm MV E Eddi: 1.24 m/s MV DecT: 314 ms MV A Eddi: 0.75 m/s MV E/A Ratio: 1.66 AV maxP.66 mmHg AV meanP.42 mmHg RAP: 5.00 mmHg RVSP: 51.32 mmHg TAPSE: 16.85 mm FINDINGS -------- Sinus rhythm. This was a technically adequate study. The left ventricular size is normal. There is mild concentric left ventricular hypertrophy. Overa ll left ventricular systolic function is mildly impaired with, an EF between 45 - 50 %. The diastol ic filling pattern indicates impaired relaxation 34.23. [place] Hypokinesis. The right ventricle is normal in size. LA is midly dilated 29-33ml/m2. The right atrium is normal in size. Interatrial and interventricular septum intact. There is mild aortic valve sclerosis. Trace to mild aortic regurgitation. The mitral valve leaflets are mildly thickened. Mild mitral annular calcification present. Mild m itral regurgitation is present. Mild tricuspid regurgitation present. There is moderate pulmonary hypertension. The right ventric ular systolic pressure, as measured by Doppler, is 51.32mmHg. Trace/mild (physiologic) pulmonic regurgitation. The aortic root size is normal. Normal inferior vena cava with normal inspiratory collapse consistent with estimated right atrial pre ssure of 5 mmHg. There is no pericardial effusion. CONCLUSIONS -------- 1. Sinus rhythm. 2. This was a technically adequate study. 3. The left ventricular size is normal. 4. There is mild concentric left ventricular hypertrophy. 5. The diastolic filling pattern indicates impaired relaxation 34.23.. 6. [place] Hypokinesis. 7. The right ventricle is normal in size. 8. LA is midly dilated 29-33ml/m2. 9. The right atrium is normal in size. 10. Interatrial and interventricular septum intact. 11. There is mild aortic valve sclerosis. 12. Trace to mild aortic regurgitation. 13. The mitral valve leaflets are mildly thickened. 14. Mild mitral annular calcification present. 15. Mild mitral regurgitation is present. 16. Mild tricuspid regurgitation present. 17. There is moderate pulmonary hypertension. 18. The right ventricular systolic pressure, as measured by Doppler, is 51.32mmHg. 19. Trace/mild (physiologic) pulmonic regurgitation. 20. The aortic root size is normal. 21. Normal inferior vena cava with normal inspiratory collapse consistent with estimated right atrial pressure of 5 mmHg. 22. There is no pericardial effusion. [employer] PROFESSOR: TUSHAR Contreras
--- NOTE | 2019-09-24 16:08 | P.HPIM ---
History of Present Illness H&P Date: 09/24/19 This is a 79-year-old female patient of Dr. Mills with past medical history of chronic kidney disease stage III, atrial fibrillation, chronic hypoxic respiratory failure on home O2, diabetes mellitus type 2, history of TIA, hypertension, seizure disorder without any recent seizure activity, generalized anxiety disorder and recurrent depression. Patient complains of sudden onset of weakness to the point that she could hardly walk. She also had pain on the right side of her face mandaen area in the back of her head. She denies any black stools, nausea vomiting. Her last hemoglobin the office was 10.6. Patient came into [facility] emergency center for evaluation. Patient was afebrile, blood pressure 87/44, pulse ox 99% on O2, pulse 95, respiratory rate 20, heart rate 103. WBC 12.8, hemoglobin 8.8, BUN 106 and creatinine 2.2 to with baseline of 1.2-1.3. Blood sugar 2193. Lactic acid 1.2 C-reactive protein 83.1, sed rate 110, blood sugar 219, troponin 0.055. Abdominal x-rays showed nonspecific nonobstructive bowel gas pattern. Patient has been seen by neurology with concern for giant cell arteritis and subsequently consult with vascular surgeon with plan for biopsy on Thursday. Patient is also been seen by nephrology for acute kidney injury. Cardiology is following for elevated troponins and echocardiogram has been ordered. Review of Systems Constitutional: Denies chills, denies fatigue, denies fever, Reports poor appetite, Reports weakness, reports headache Ears, nose, mouth and throat: Denies dysphagia, Denies nasal congestion, Denies nasal discharge, Denies vertigo Cardiovascular: Denies chest pain, denies dyspnea on exertion, denies shortness of breath, Denies edema, Denies leg edema, Denies lightheadedness Respiratory: Denies cough, denies dyspnea, denies respiratory infections, denies wheezing, Denies cough with sputum, Denies excessive sputum, Denies hemoptysis Gastrointestinal: Denies abdominal pain, Denies constipation, Denies dyspepsia, Denies loss of appetite, Denies nausea, Denies vomiting Genitourinary: Denies dysuria, Denies urgency, Denies urinary frequency Musculoskeletal: Reports gait dysfunction, Reports muscle weakness, Reports myalgias, Denies frequent falls Integumentary: Denies pruritus, Denies rash, Denies wounds Neurological: Reports weakness, Denies aphasia, Denies change in mentation, Denies change in speech, Denies confusion, Denies numbness, Denies seizures, Denies vertigo Psychiatric: Denies anxiety, Denies depression Endocrine: Reports fatigue, Denies weight change Past Medical History Past Medical History: Heart Failure, CVA/TIA, Diabetes Mellitus, Hypertension, Renal Disease Additional Past Medical History / Comment(s): TIAs 4 with previous TIA 18 months ago. Motor seizures left leg anemic, irregular heart beat; murmur, pneum History of Any Multi-Drug Resistant Organisms: None Reported Past Surgical History: Appendectomy, Hysterectomy, Orthopedic Surgery Additional Past Surgical History / Comment(s): left knee arthroscopy, cyst removal (pilonidal cyst) Past Anesthesia/Blood Transfusion Reactions: No Reported Reaction Past Psychological History: Anxiety Smoking Status: Never smoker Past Alcohol Use History: None Reported Additional Past Alcohol Use History / Comment(s): Patient is a lifelong nonsmoker, no illicit drug use, no alcohol use. Past Drug Use History: None Reported - Past Family History Brother(s) Additional Family Medical History / Comment(s): The patient has 2 brothers and both are . One from aspiration pneumonia with history of stomach cancer. A second brother from melanoma. Father Family Medical History: Congestive Heart Failure (CHF) Additional Family Medical History / Comment(s): Father at age 65 from heart failure. Mother Family Medical History: Congestive Heart Failure (CHF) Additional Family Medical History / Comment(s): Mother at age 92 from heart failure and had previous history of coronary artery disease with several MIs. Sister(s) Family Medical History: Cancer Additional Family Medical History / Comment(s): The patient has 2 sisters. One is stage IV breast cancer survivor and history of diverticulitis. Second sister has many medical problems. Son(s) Family Medical History: Hypertension Medications and Allergies Home Medications Medication Instructions Recorded Confirmed Type Pravastatin Sodium [Pravachol] 20 mg PO DAILY 04/23/14 09/23/19 History Acetaminophen Tab [Tylenol] 650 mg PO Q6H PRN 05/20/19 09/23/19 History Albuterol Nebulized [Ventolin 2.5 mg INHALATION RT-Q4H PRN 05/20/19 09/23/19 History Nebulized] Apixaban [Eliquis] 5 mg PO BID 05/20/19 09/23/19 History Budesonide 1 mg INHALATION RT-BID PRN 05/20/19 09/23/19 History Divalproex Sodium [Depakote 500 mg PO DAILY 05/20/19 09/23/19 History Sprinkle] Ferrous Sulfate [Iron (65 MG 325 mg PO BID 05/20/19 09/23/19 History Elemental)] Insulin Glargine [Lantus] See Protocol SQ HS 05/20/19 09/23/19 History Levothyroxine Sodium 112 mcg PO DAILY 05/20/19 09/23/19 History Lisinopril [Prinivil] 5 mg PO DAILY 05/20/19 09/23/19 History Magnesium Oxide 400 mg PO DAILY 05/20/19 09/23/19 History Melatonin 10 mg PO HS 05/20/19 09/23/19 History Sertraline [Zoloft] 50 mg PO DAILY 05/20/19 09/23/19 History Sucralfate [Carafate] 1 gm PO ACHS PRN 05/20/19 09/23/19 History Insulin Lispro [humaLOG Kwikpen] See Protocol SQ AC-TID 06/05/19 09/23/19 History Furosemide [Lasix] 40 mg PO BID@0900,1600 tab 06/09/19 09/23/19 Rx Multivitamins, Thera [Multivitamin 1 tab PO DAILY 09/23/19 09/23/19 History (formulary)] [place]-3 Fatty Acids [[place]-3] 1,000 mg PO DAILY 09/23/19 09/23/19 History Vitamin B Complex 1 cap PO DAILY 09/23/19 09/23/19 History hydrALAZINE HCL [Apresoline] 75 mg PO TID 09/23/19 09/23/19 History Allergies Allergy/AdvReac Type Severity Reaction Status Date / Time doxycycline calcium Allergy Anaphylaxis Verified 09/23/19 16:16 [From Vibramycin] doxycycline hyclate Allergy Anaphylaxis Verified 09/23/19 16:16 [From Vibramycin] doxycycline monohydrate Allergy Anaphylaxis Verified 09/23/19 16:16 [From Vibramycin] erythromycin base Allergy Anaphylaxis Verified 09/23/19 16:16 Iodinated Contrast Media Allergy Anaphylaxis Verified 09/23/19 16:16 [Iodinated Contrast Media - IV Dye] Physical Exam Vitals: Vital Signs Temp Pulse Pulse Resp BP BP BP 09/24/19 09:10 67 16 09/24/19 08:00 97.4 F L 67 16 99/54 09/24/19 04:00 96.9 F L 70 18 99/58 09/24/19 00:00 96.4 F L 69 18 92/52 09/23/19 20:00 96.7 F L 76 18 92/44 97/55 09/23/19 18:00 97.0 F L 95 18 107/53 09/23/19 17:07 98.4 F 86 18 96/54 09/23/19 17:00 86 22 93/52 09/23/19 15:54 98.2 F 09/23/19 15:50 78 16 110/64 09/23/19 13:10 99.6 F 103 H 20 87/44 Pulse Ox 09/24/19 09:10 09/24/19 08:00 98 09/24/19 04:00 98 09/24/19 00:00 96 09/23/19 20:00 98 09/23/19 18:00 96 09/23/19 17:07 99 09/23/19 17:00 100 09/23/19 15:54 09/23/19 15:50 100 09/23/19 13:10 99 Intake and Output 09/23/19 09/24/19 09/24/19 22:59 06:59 14:59 Intake Total 360 360 Output Total 200 100 Balance 360 -200 260 Intake: Oral 360 360 Output: Urine 200 100 Other: Voiding Method Bedpan Bedside Commode Bedside Commode Weight 55 kg Gen: This is a 79-year-old obese female. Patient is resting in bed and appears to be comfortable and in no acute distress. HEENT: Head is atraumatic, normocephalic. Pupils equal, round. Sclerae is anicteric. NECK: Supple. No JVD. No lymphadenopathy. No thyromegaly. LUNGS: Diminished bilaterally with rales and scattered rhonchi.. No intercostal retractions. HEART: Regular rate and rhythm. Systolic murmur. ABDOMEN: Soft. Bowel sounds are present. No masses. No tenderness. EXTREMITIES: No pedal edema. No calf tenderness. NEUROLOGICAL: Patient is awake, alert and oriented x3. Cranial nerves 2 through 12 are grossly intact. Results CBC & Chem 7: 09/24/19 11:18 09/23/19 14:35 Labs: Abnormal Lab Results - Last 24 Hours (Table) 09/23/19 09/23/19 09/23/19 Range/Units 14:35 14:35 14:35 WBC 12.8 H (3.8-10.6) k/uL RBC 2.93 L (3.80-5.40) m/uL Hgb 8.8 L D (11.4-16.0) gm/dL Hct 25.7 L (34.0-46.0) % RDW 16.8 H (11.5-15.5) % Neutrophils # 11.0 H (1.3-7.7) k/uL Lymphocytes # 0.9 L (1.0-4.8) k/uL ESR 110 H (0-20) mm/hr Sodium 135 L (137-145) mmol/L BUN 106 H* (7-17) mg/dL Creatinine 2.22 H (0.52-1.04) mg/dL Glucose 219 H (74-99) mg/dL POC Glucose (mg/dL) (75-99) mg/dL Magnesium 2.4 H (1.6-2.3) mg/dL Troponin I 0.055 H* (0.000-0.034) ng/mL C-Reactive Protein 83.1 H (<10.0) mg/L Urine Appearance (Clear) Urine Protein (Negative) Ur Leukocyte Esterase (Negative) Urine WBC (0-5) /hpf Urine WBC Clumps (None) /hpf Urine Bacteria (None) /hpf Urine Mucus (None) /hpf 09/23/19 09/23/19 09/23/19 Range/Units 16:46 17:50 19:27 WBC (3.8-10.6) k/uL RBC (3.80-5.40) m/uL Hgb (11.4-16.0) gm/dL Hct (34.0-46.0) % RDW (11.5-15.5) % Neutrophils # (1.3-7.7) k/uL Lymphocytes # (1.0-4.8) k/uL ESR (0-20) mm/hr Sodium (137-145) mmol/L BUN (7-17) mg/dL Creatinine (0.52-1.04) mg/dL Glucose (74-99) mg/dL POC Glucose (mg/dL) 232 H 267 H (75-99) mg/dL Magnesium (1.6-2.3) mg/dL Troponin I (0.000-0.034) ng/mL C-Reactive Protein (<10.0) mg/L Urine Appearance Cloudy H (Clear) Urine Protein Trace H (Negative) Ur Leukocyte Esterase Large H (Negative) Urine WBC 55 H (0-5) /hpf Urine WBC Clumps Many H (None) /hpf Urine Bacteria Occasional H (None) /hpf Urine Mucus Rare H (None) /hpf 09/23/19 09/24/19 Range/Units 21:20 06:29 WBC (3.8-10.6) k/uL RBC (3.80-5.40) m/uL Hgb (11.4-16.0) gm/dL Hct (34.0-46.0) % RDW (11.5-15.5) % Neutrophils # (1.3-7.7) k/uL Lymphocytes # (1.0-4.8) k/uL ESR (0-20) mm/hr Sodium (137-145) mmol/L BUN (7-17) mg/dL Creatinine (0.52-1.04) mg/dL Glucose (74-99) mg/dL POC Glucose (mg/dL) 297 H 235 H (75-99) mg/dL Magnesium (1.6-2.3) mg/dL Troponin I (0.000-0.034) ng/mL C-Reactive Protein (<10.0) mg/L Urine Appearance (Clear) Urine Protein (Negative) Ur Leukocyte Esterase (Negative) Urine WBC (0-5) /hpf Urine WBC Clumps (None) /hpf Urine Bacteria (None) /hpf Urine Mucus (None) /hpf Microbiology - Last 24 Hours (Table) 09/23/19 16:46 Urine Culture - Preliminary Urine,Catheterized Assessment and Plan Plan: 1. Headache rule out temporal arteritis. Consult with neurology appreciated patient has been started on prednisone 60 mg daily. Vascular surgery has evaluated with plan for biopsy on Thursday. Eliquis has been placed on hold until after biopsy. 2. Elevated troponins. Cardiology on consult. Echocardiogram has been ordered. 3. Acute on chronic anemia with possible GI bleed. Stool to be checked for occult blood. Recheck hemoglobin every 12 hours. 4. Generalized weakness secondary to acute urinary tract infection. Await urine culture. Continue ceftriaxone. 5. Diabetes mellitus type 2. Continue Levemir 10 units at bedtime and NovoLog scale before meals and at bedtime. 6. Hypertension. Continue lisinopril 5 mg daily. Hold hydralazine and Lasix due to hypotension 7. Atrial fibrillation, paroxysmal. Hold eliquis. 8. Acute kidney injury with Chronic kidney disease stage III. Consult with nephrology appreciated. 9. Generalized anxiety disorder and recurrent depression. Continue Xanax 0.25 mg twice daily as needed and Zoloft 50 mg daily. 10. 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 11. Anemia of chronic disease. Monitor hemoglobin. 12. Hypothyroidism. Continue levothyroxine 112 g daily. 13. Hyperlipidemia. Continue pravastatin 20 mg at bedtime. 14. GI prophylaxis and gastroesophageal reflux disease. Protonix twice daily and Carafate. 15. DVT prophylaxis. Hold eliquis. Patient will be admitted to the hospital for a minimum of 2 night stay. Discharge plan: To be determined. Patient has been at [facility] under the care of Dr. Mills in the past Impression and plan of care have been directed as dictated by the signing physician. Nubia Caruso nurse practitioner acting as scribe for signing marianna elizondo.
[2019-09-24 16:53] LABS: Glucose,Whole Blood 264 mg/dL (75-99)
[2019-09-24] MEDS: ACETAMINOPHEN TAB 325 MG TAB PO PRN (19:07)
[2019-09-24 21:04] LABS: Glucose,Whole Blood 371 mg/dL (75-99)
[2019-09-24] MEDS: MELATONIN 5 MG TABLET PO SCH (21:11)
[2019-09-24] MEDS: INSULIN DETEMIR (LEVEMIR) 100 UNIT/ML SYR SQ SCH (21:11)
[2019-09-24 22:33] LABS: Protein/Creatinine Ratio,Urine 0.1
[2019-09-25 00:34] LABS: Anisocytosis Slight; HCT 26.3 % (34.0-46.0); HGB 8.3 gm/dL (11.4-16.0); Hypochromasia Slight; MCH 29.1 pg (25.0-35.0); MCHC 31.4 g/dL (31.0-37.0); MCV 92.4 fL (80.0-100.0); Mean Platelet Volume 6.5; Platelet Count 233 k/uL (150-450); RBC 2.84 m/uL (3.80-5.40); RDW 16.9 % (11.5-15.5); WBC 5.7 k/uL (3.8-10.6)
[2019-09-25 06:40] LABS: Glucose,Whole Blood 300 mg/dL (75-99)
[2019-09-25] MEDS: LEVOTHYROXINE 112 MCG TAB PO SCH (07:32)
[2019-09-25] MEDS: INSULIN ASPART (NovoLOG) 100 UNIT/ML VIAL SQ SCH ×5 (07:33→21:53)
[2019-09-25] MEDS: SODIUM CHLORIDE 0.9% 1,000 ML IV SCH ×2 (07:35→11:19)
[2019-09-25] MEDS: ACETAMINOPHEN TAB 325 MG TAB PO PRN ×2 (08:59→18:33)
[2019-09-25] MEDS: PANTOPRAZOLE 40 MG/10 ML VIAL IVP SCH ×2 (09:00→21:53)
[2019-09-25] MEDS: SERTRALINE 50 MG TAB PO SCH (09:01)
[2019-09-25] MEDS: FERROUS SULFATE 325 MG TAB PO SCH ×2 (09:01→21:52)
[2019-09-25] MEDS: LISINOPRIL 5 MG TAB PO SCH (09:01)
[2019-09-25] MEDS: MULTIVITAMINS, THERA 1 EACH TAB PO SCH (09:01)
[2019-09-25] MEDS: PRAVASTATIN SODIUM 20 MG TAB PO SCH (09:01)
[2019-09-25] MEDS: DIVALPROEX SPRINKLE 125 MG CAP.SPRINK PO SCH (09:01)
[2019-09-25] MEDS: predniSONE 20 MG TAB PO SCH (09:01)
--- NOTE | 2019-09-25 10:28 | P.PN ---
Subjective Progress Note Date: 09/25/19 Principal diagnosis: This is a 79 year old female seen in consultation because of Acute kidney injury from low blood pressure, running in the 90s, subsequent to recent increased b lood pressure medications. Blood pressure in the 80s to 90s. Creatinine came up to be 2.2 on admission yesterday. Additionally because of headache which started 4-5 days prior to this admission she is being prepared for a temporal artery biopsy. So far workup has shown a urinalysis with trace proteinuria, large leukocyte Estrace WBC clumps. Urine protein to creatinine ratio is 0.1. Her anemia workup shows stable hemoglobin at 8.3 iron saturation is pending. MCV is in the range of 87-92, RDW is high at 16.8, suggestive of iron deficiency. She was started on IV normal saline at 75 mL an hour, urine output is not documented. Blood pressures in the 159-166 systolic range now. Denies any shortness of breath. She was somewhat constipated but had a bowel movement last night with some difficulty and now feels relieved. The headache is continuing though although she is on prednisone History of present illness; This is a 79-year-old female known to us with chronic kidney disease. She came in because of headache for about 4 days. Possibility of temporal arteritis is being considered by the neurology service. She is seen because of an element of acute kidney injury. Supposedly just before this episodes of headache she went to see her primary physician and her blood pressure was slightly high she is unaware of the number. Her medications were increased but no new medications are added details are not available. She denies any mastication pain, she has low neck pain but no shoulder pain or any other arthritis. Denies any rash. No chest pain no change in her vision sh e is able to walk with a walker which is unchanged. No chest pain no cough no epistaxis hemoptysis. No dysuria, she does have nocturnal frequency for some time now Her C-reactive protein is elevated at 83 mg/L normal being less than 10. 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 Objective - Vital Signs Vital signs: Vital Signs Temp 97.6 F 09/25/19 09:00 Pulse 89 09/25/19 09:00 Resp 18 09/25/19 09:00 BP 166/71 09/25/19 09:00 Pulse Ox 94 L 09/25/19 04:00 Intake & Output 09/24/19 09/25/19 09/25/19 18:59 06:59 18:59 Intake Total 1080 930 840 Output Total 100 650 Balance 980 280 840 Weight 55 kg 57.2 kg Intake: Intake, IV Titration 930 Amount Sodium Chloride 0.9% 1, 880 000 ml @ 80 mls/hr IV . [id number] J[facility] Rx#:[id number] cefTRIAXone 1 gm In 50 Sodium Chloride 0.9% 50 ml @ 100 mls/hr IVPB Q24HR J[facility] Rx#:[id number] Oral 1080 840 Output: Urine 100 650 Other: Voiding Method Bedside Commode Toilet Toilet # Voids 5 1 # Bowel Movements 1 On examination she is awake alert oriented comfortable HEENT exam no JVP neck is supple no facial asymmetry Lungs are clear to auscultation with occasional coarse crackles Heart sounds are unremarkable for any murmur rub gallop Abdomen soft nontender no organomegaly ascites masses Extremity exam was no edema Theskin rash Neuro logically awake alert oriented but generalized weakness. No focal motor deficit - Labs CBC & Chem 7: 09/25/19 00:11 09/23/19 14:35 Labs: Abnormal Lab Results - Last 24 Hours (Table) 09/24/19 09/24/19 09/24/19 Range/Units 11:18 11:49 16:46 RBC 2.72 L (3.80-5.40) m/uL Hgb 8.0 L (11.4-16.0) gm/dL Hct 24.5 L (34.0-46.0) % RDW 17.0 H (11.5-15.5) % POC Glucose (mg/dL) 297 H 264 H (75-99) mg/dL 09/24/19 09/25/19 09/25/19 Range/Units 21:04 00:11 06:39 RBC 2.84 L (3.80-5.40) m/uL Hgb 8.3 L (11.4-16.0) gm/dL Hct 26.3 L (34.0-46.0) % RDW 16.9 H (11.5-15.5) % POC Glucose (mg/dL) 371 H 300 H (75-99) mg/dL Microbiology - Last 24 Hours (Table) 09/23/19 16:46 Urine Culture - Preliminary Urine,Catheterized Gram Neg Bacilli Assessment and Plan Assessment: Impression 1. Acute kidney injury from low blood pressure, subsequent to recent increased blood pressure medications. Blood pressure in the 80s to 90s. Creatinine came up to be 2.2 on admission. Today's labs are pending she was started on IV fluids blood pressure is in the 150-160 systolic range. 2. Chronic kidney disease stage III secondary to nephrosclerosis, baseline creatinine 1.17 as of 05/30/2019 and fluctuates between 0.89 dated 11/08/2018 which is the lowest to 1.7 dated 06/08/2019 when she was admitted with acute kidney injury. 3. Diabetes mellitus, with trace proteinuria, unlikely diabetic nephropathy. Protein to creatinine ratio as of yesterday 09/24/2019 is 0.1 4. Admitted with headache and possible temporal arteritis although very atypical presentation. Short history of headache off about 4 days. High C- reactive protein. 5. Mild hyponatremia from acute kidney injury sodium is 135. 6. Anemia of chronic kidney disease, rule out in this deficiency Recommendation 1. ContinueNormal saline 80, 2. Hold lisinopril if pressure is less than 100. 3. Check iron saturation. 4. Target blood pressure is 110 to 1:30 5. Repeat blood test today if not done 6. If creatinine does not improve with hydration and improvement in blood pressure would consider further workup of the pyuria. 7. Avoid any nephrotoxic medication including Toradol
--- NOTE | 2019-09-25 10:48 | P.PN ---
Subjective Progress Note Date: 09/25/19 This is a 79-year-old female patient of Dr. Mills with past medical history of chronic kidney disease stage III, atrial fibrillation, chronic hypoxic respiratory failure on home O2, diabetes mellitus type 2, history of TIA, hypertension, seizure disorder without any recent seizure activity, gene ralized anxiety disorder and recurrent depression. Patient complains of sudden onset of weakness to the point that she could hardly walk. She also had pain on the right side of her face congregation area in the back of her head. She denies any black stools, nausea vomiting. Her last hemoglobin the office was 10.6. Patient came into [facility] emergency center for evaluation. Patient was afebrile, blood pressure 87/44, pulse ox 99% on O2, pulse 95, respiratory rate 20, heart rate 103. WBC 12.8, hemoglobin 8.8, BUN 106 and creatinine 2.2 to with baseline of 1.2-1.3. Blood sugar 2193. Lactic acid 1.2 C-reactive protein 83.1, sed rate 110, blood sugar 219, troponin 0.055. Abdominal x-rays showed nonspecific nonobstructive bowel gas pattern. Patient has been seen by neurology with concern for giant cell arteritis and subsequently consult with vascular surgeon with plan for biopsy on Thursday. Patient is also been seen by nephrology for acute kidney injury. Cardiology is following for elevated troponins and echocardiogram has been ordered. 09/25: Nephrology continues to follow the patient with recommendations to continue IV fluids at 80 mL per hour. Hold lisinopril if blood pressures less than 100, check iron saturation, target blood pressure is 110 to 130 and avoid nephrotoxic agents. Echocardiogram reveals EF of 45-50% with mild concentric left ventricular hypertrophy, mild aortic valve sclerosis, mild aortic regurgitation, mild mitral regurgitation, mild tricuspid regurgitation, moderate pulmonary hypertension. Patient continues on prednisone 60 mg oral daily with plan for biopsy on Thursday with vascular surgery. Neurology has ordered MRA of the brain which is been scheduled. Patient is complaining of a dull headache this morning. She is requesting massage therapist which may be able to be arranged on Thursday. Blood pressure readings are now high at 166/71, heart rate 71, she is afebrile, pulse ox 94% on room air. Patient will be resumed on the lower dose of hydralazine 25 mg twice daily. Yesterday, we had discontinued hydralazine 75 mg 3 times daily. Patient has had a bowel movement and occult blood was negative. Hemoglobin is stable at 8.3 and CBC will be rechecked tomorrow. Urine culture is showing gram-negative bacilli. Discussed discharge planning and patient would like to go to [facility] which we will plan to arrange for Thursday. Social work consult added. PT and OT are following. Review of Systems Constitutional: Denies chills, denies fatigue, denies fever, Reports poor appetite, Reports weakness, reports headache-dull ache Ears, nose, mouth and throat: Denies dysphagia, Denies nasal congestion, Denies nasal discharge, Denies vertigo Cardiovascular: Denies chest pain, denies dyspnea on exertion, denies shortness of breath, Denies edema, Denies leg edema, Denies lightheadedness Respiratory: Denies cough, denies dyspnea, denies respiratory infections, denies wheezing, Denies cough with sputum, Denies excessive sputum, Denies hemoptysis Gastrointestinal: Denies abdominal pain, Denies constipation, Denies dyspepsia, Denies loss of appetite, Denies nausea, Denies vomiting Genitourinary: Denies dysuria, Denies urgency, Denies urinary frequency Musculoskeletal: Reports gait dysfunction, Reports muscle weakness, Reports myalgias, Denies frequent falls Integumentary: Denies pruritus, Denies rash, Denies wounds Neurological: Reports weakness, Denies aphasia, Denies change in mentation, Denies change in speech, Denies confusion, Denies numbness, Denies seizures, Denies vertigo Psychiatric: Denies anxiety, Denies depression Endocrine: Reports fatigue, Denies weight change Objective - Vital Signs Vital signs: Vital Signs Temp 97.8 F 09/25/19 04:00 Pulse 81 09/25/19 04:00 Resp 19 09/25/19 04:00 BP 159/78 09/25/19 04:00 Pulse Ox 94 L 09/25/19 04:00 Intake & Output 09/24/19 09/25/19 09/25/19 18:59 06:59 18:59 Intake Total 1080 930 Output Total 100 650 Balance 980 280 Weight 55 kg 57.2 kg Intake: Intake, IV Titration 930 Amount Sodium Chloride 0.9% 1, 880 000 ml @ 80 mls/hr IV . [id number] JC Rx#:[id number] cefTRIAXone 1 gm In 50 Sodium Chloride 0.9% 50 ml @ 100 mls/hr IVPB Q24HR JC Rx#:[id number] Oral 1080 Output: Urine 100 650 Other: Voiding Method Bedside Commode Toilet # Voids 5 # Bowel Movements 1 - Exam Gen: This is a 79-year-old obese female. Patient is resting in bed and appears to be comfortable and in no acute distress. HEENT: Head is atraumatic, normocephalic. Pupils equal, round. Sclerae is anicteric. NECK: Supple. No nuchal rigidity. No JVD. No lymphadenopathy. No thyromegaly. LUNGS: Diminished bilaterally with rales and scattered rhonchi.. No intercostal retractions. HEART: Regular rate and rhythm. Systolic murmur. ABDOMEN: Soft. Bowel sounds are present. No masses. No tenderness. EXTREMITIES: No pedal edema. No calf tenderness. Dorsalis pedis +2 bilaterally. NEUROLOGICAL: Patient is awake, alert and oriented x3. Cranial nerves 2 through 12 are grossly intact. - Labs CBC & Chem 7: 09/25/19 00:11 09/23/19 14:35 Labs: Abnormal Lab Results - Last 24 Hours (Table) 09/24/19 09/24/19 09/24/19 Range/Units 11:18 11:49 16:46 RBC 2.72 L (3.80-5.40) m/uL Hgb 8.0 L (11.4-16.0) gm/dL Hct 24.5 L (34.0-46.0) % RDW 17.0 H (11.5-15.5) % POC Glucose (mg/dL) 297 H 264 H (75-99) mg/dL 09/24/19 09/25/19 09/25/19 Range/Units 21:04 00:11 06:39 RBC 2.84 L (3.80-5.40) m/uL Hgb 8.3 L (11.4-16.0) gm/dL Hct 26.3 L (34.0-46.0) % RDW 16.9 H (11.5-15.5) % POC Glucose (mg/dL) 371 H 300 H (75-99) mg/dL Microbiology - Last 24 Hours (Table) 09/23/19 16:46 Urine Culture - Preliminary Urine,Catheterized Gram Neg Bacilli Assessment and Plan Plan: 1. Headache rule out temporal arteritis. Consult with neurology appreciated patient has been started on prednisone 60 mg daily. Vascular surgery has evaluated with plan for biopsy on Thursday. Eliquis has been placed on hold until after biopsy. MRA of the brain ordered by neurology. 2. Elevated troponins. Cardiology on consult. Echocardiogram as above. 3. Chronic anemia with possible GI bleed. Stool for occult blood was negative. Hemoglobin has been stable. 4. Generalized weakness secondary to acute urinary tract infection. Await urine culture. Continue ceftriaxone. 5. Diabetes mellitus type 2. Continue Levemir 10 units at bedtime and NovoLog scale before meals and at bedtime. 6. Hypertension. Continue lisinopril 5 mg daily with parameters. Added and the lower dose of hydralazine at 25 mg twice daily and continue to hold Lasix. 7. Atrial fibrillation, paroxysmal. Hold eliquis. 8. Acute kidney injury secondary to hypotension due to recent blood pressure medication increase with Chronic kidney disease stage III. Consult with nephrology appreciated. Continue IV fluids, avoid nephrotoxic agents, hold lisinopril for blood pressure less than 110 and goal systolic blood pressure 110- 130. 9. Generalized anxiety disorder and recurrent depression. Continue Xanax 0.25 mg twice daily as needed and Zoloft 50 mg daily. 10. 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 11. Anemia of chronic disease. Monitor hemoglobin. 12. Hypothyroidism. Continue levothyroxine 112 g daily. 13. Hyperlipidemia. Continue pravastatin 20 mg at bedtime. 14. GI prophylaxis and gastroesophageal reflux disease. Protonix twice daily and Carafate. 15. DVT prophylaxis. Hold eliquis. Discharge plan: [place] under the care of Dr. Mills on Thursday Impression and plan of care have been directed as dictated by the signing physician. Nubia Caruso nurse practitioner acting as scribe for signing physician.
--- NOTE | 2019-09-25 10:59 | XR ---
EXAMINATION TYPE: XR chest 2V DATE OF EXAM: 09/25/2019 HISTORY: sob. REFERENCE: Previous study dated 08/02/2019. FINDINGS: Lung volumes are prominent. The heart is mildly prominent. There are chronic pleural parenc hymal changes at the right lung base and also the left lung base. There is mild vascular congestion a nd subtle interstitial change. There are small, bilateral effusions. There is a dextroscoliosis present in the thoracic spine. IMPRESSION: 1. COPD. 2. FINDINGS CONSISTENT WITH MILD HEART FAILURE. 3. SMALL, BILATERAL EFFUSIONS.
[2019-09-25] MEDS: hydrALAZINE HCL 25 MG TAB PO SCH ×2 (11:19→21:52)
[2019-09-25 11:50] LABS: Potassium 4.4 mmol/L (3.5-5.1)
--- NOTE | 2019-09-25 12:04 | P.PN ---
Subjective Progress Note Date: 09/25/19 Ms. Tammi Schneider is seen in neurologic follow-up on 09/25/2019. She tells me today her headache is worse than yesterday. She is receiving a bit of relief with the Tylenol. She says the Tylenol "takes the edge off". Patient has not noticed any visual changes or loss of vision. She denies nausea and vomiting. The patient denies abdominal pain. MRA has not been performed at this point. Today's labs are reviewed. Objective - Vital Signs Vital signs: Vital Signs Temp 97.7 F 09/25/19 11:13 Pulse 80 09/25/19 11:13 Resp 22 09/25/19 11:13 BP 127/70 09/25/19 11:13 Pulse Ox 100 09/25/19 11:13 Intake & Output 09/24/19 09/25/19 09/25/19 18:59 06:59 18:59 Intake Total 1080 930 840 Output Total 100 650 Balance 980 280 840 Weight 55 kg 57.2 kg Intake: Intake, IV Titration 930 Amount Sodium Chloride 0.9% 1, 880 000 ml @ 80 mls/hr IV . [id number] JC Rx#:[id number] cefTRIAXone 1 gm In 50 Sodium Chloride 0.9% 50 ml @ 100 mls/hr IVPB Q24HR JC Rx#:[id number] Oral 1080 840 Output: Urine 100 650 Other: Voiding Method Bedside Commode Toilet Toilet # Voids 5 1 # Bowel Movements 1 - Exam The patient is reclining in the bed she is in mild distress. Pupils are equal, round and reactive to light. Visual bagley are full to confrontation. Extraocular muscles are intact. Funduscopic examination is difficult secondary to cataracts. There is no tenderness to palpation of the temporal arteries. Occipital notch tenderness remains. Neck tenderness remains. The neck is more supple today. Heart: Regular rate and rhythm - Labs CBC & Chem 7: 09/25/19 00:11 09/25/19 11:13 Labs: Abnormal Lab Results - Last 24 Hours (Table) 09/24/19 09/24/19 09/25/19 Range/Units 16:46 21:04 00:11 RBC 2.84 L (3.80-5.40) m/uL Hgb 8.3 L (11.4-16.0) gm/dL Hct 26.3 L (34.0-46.0) % RDW 16.9 H (11.5-15.5) % Carbon Dioxide (22-30) mmol/L BUN (7-17) mg/dL Creatinine (0.52-1.04) mg/dL Glucose (74-99) mg/dL POC Glucose (mg/dL) 264 H 371 H (75-99) mg/dL 09/25/19 09/25/19 Range/Units 06:39 11:13 RBC (3.80-5.40) m/uL Hgb (11.4-16.0) gm/dL Hct (34.0-46.0) % RDW (11.5-15.5) % Carbon Dioxide 19 L (22-30) mmol/L BUN 96 H (7-17) mg/dL Creatinine 2.07 H (0.52-1.04) mg/dL Glucose 302 H (74-99) mg/dL POC Glucose (mg/dL) 300 H (75-99) mg/dL Microbiology - Last 24 Hours (Table) 09/23/19 16:46 Urine Culture - Preliminary Urine,Catheterized Gram Neg Bacilli Assessment and Plan Assessment: Impressions 1. Markedly elevated sed rate and C-reactive protein with associated severe headache, these findings are consistent with a diagnosis of temporal arteritis 2. Anemia 3. Multiple other medical problems Plan: Plan 1. Await MRA results 2. Await biopsy results 3. Continue Tylenol for pain 4. Continue Protonix 5. Discussed diagnostic options, treatment and prognosis with patient Time with Patient: Less than 30 (I spent 20 minutes providing care for this pt)
[2019-09-25 12:15] LABS: Glucose,Whole Blood 310 mg/dL (75-99)
--- NOTE | 2019-09-25 12:20 | P.PN ---
Subjective Progress Note Date: 09/25/19 This is a 79-year-old female with history of chronic kidney disease, atrial fibrillation, chronic hypoxic respiratory failure on home O2, diabetes, history of TIA, hypertension, seizure disorder, anxiety disorder and depression who presented to the hospital with sudden onset of weakness and inability to walk because of the weakness. In consultation by Dr. dallin Chance yesterday. Blood pressure 128/70 with a heart rate in the 80s, 100% on 2 L of oxygen. Sodium 137, potassium 4.4, BUN 96 and creatinine 2.0. An echocardiogram with Doppler study was performed which revealed an ejection fraction of 45-50% with apical hypokinesia noted. Tomorrow we will attempt to get an echo from the off ice to compare. It does appear that the patient's troponin abnormality was likely very to abnormal renal function. Objective - Vital Signs Vital signs: Vital Signs Temp 97.7 F 09/25/19 11:13 Pulse 80 09/25/19 11:13 Resp 22 09/25/19 11:13 BP 127/70 09/25/19 11:13 Pulse Ox 100 09/25/19 11:13 Intake & Output 09/24/19 09/25/19 09/25/19 18:59 06:59 18:59 Intake Total 1080 930 840 Output Total 100 650 Balance 980 280 840 Weight 55 kg 57.2 kg Intake: Intake, IV Titration 930 Amount Sodium Chloride 0.9% 1, 880 000 ml @ 80 mls/hr IV . [id number] JC Rx#:[id number] cefTRIAXone 1 gm In 50 Sodium Chloride 0.9% 50 ml @ 100 mls/hr IVPB Q24HR JC Rx#:[id number] Oral 1080 840 Output: Urine 100 650 Other: Voiding Method Bedside Commode Toilet Toilet # Voids 5 1 # Bowel Movements 1 - Exam Gen: This is a 79-year-old obese female. Patient is resting in bed and appears to be comfortable and in no acute distress. HEENT: Head is atraumatic, normocephalic. Pupils equal, round. Sclerae is anicteric. NECK: Supple. No nuchal rigidity. No JVD. No lymphadenopathy. No thyromegaly. LUNGS: Diminished bilaterally with rales and scattered rhonchi.. No intercostal retractions. HEART: Regular rate and rhythm. Systolic murmur. ABDOMEN: Soft. Bowel sounds are present. No masses. No tenderness. EXTREMITIES: No pedal edema. No calf tenderness. Dorsalis pedis +2 bilaterally. NEUROLOGICAL: Patient is awake, alert and oriented x3. Cranial nerves 2 through 12 are grossly intact. - Labs CBC & Chem 7: 09/25/19 00:11 09/25/19 11:13 Labs: Abnormal Lab Results - Last 24 Hours (Table) 09/24/19 09/24/19 09/25/19 Range/Units 16:46 21:04 00:11 RBC 2.84 L (3.80-5.40) m/uL Hgb 8.3 L (11.4-16.0) gm/dL Hct 26.3 L (34.0-46.0) % RDW 16.9 H (11.5-15.5) % Carbon Dioxide (22-30) mmol/L BUN (7-17) mg/dL Creatinine (0.52-1.04) mg/dL Glucose (74-99) mg/dL POC Glucose (mg/dL) 264 H 371 H (75-99) mg/dL 09/25/19 09/25/19 Range/Units 06:39 11:13 RBC (3.80-5.40) m/uL Hgb (11.4-16.0) gm/dL Hct (34.0-46.0) % RDW (11.5-15.5) % Carbon Dioxide 19 L (22-30) mmol/L BUN 96 H (7-17) mg/dL Creatinine 2.07 H (0.52-1.04) mg/dL Glucose 302 H (74-99) mg/dL POC Glucose (mg/dL) 300 H (75-99) mg/dL Microbiology - Last 24 Hours (Table) 09/23/19 16:46 Urine Culture - Preliminary Urine,Catheterized Gram Neg Bacilli Assessment and Plan Plan: Assessment and Plan: 1. Headache rule out temporal arteritis. 2. Elevated troponins. Likely secondary to abnormal renal function 3. Chronic anemia with possible GI bleed. Stool for occult blood was negative. Hemoglobin has been stable. 4. Generalized weakness secondary to acute urinary tract infection. 5. Diabetes mellitus type 2. 6. Hypertension. 7. Atrial fibrillation, paroxysmal. 8. Acute kidney injury secondary to hypotension due to recent blood pressure medication increase with Chronic kidney disease stage III. 9. Generalized anxiety disorder and recurrent depression. 10. Hypercalcemia 11. Anemia of chronic disease. 12. Hypothyroidism. 13. Hyperlipidemia. 14. GI prophylaxis and gastroesophageal reflux disease. 15. DVT prophylaxis. Plan From cardiology's perspective, we'll continue this patient on her current medications. We will obtain recent echo from the office to compare to this echo. DNP note has been reviewed, I agree with a documented findings and plan of care. Patient was seen and examined.
[2019-09-25] MEDS: FUROSEMIDE 20 MG TAB PO SCH (16:05)
[2019-09-25 17:27] LABS: Glucose,Whole Blood 328 mg/dL (75-99)
[2019-09-25 20:43] LABS: Glucose,Whole Blood 402 mg/dL (75-99)
[2019-09-25] MEDS: MELATONIN 5 MG TABLET PO SCH (21:52)
[2019-09-25] MEDS: INSULIN DETEMIR (LEVEMIR) 100 UNIT/ML SYR SQ SCH (21:53)
[2019-09-26] MEDS: ACETAMINOPHEN TAB 325 MG TAB PO PRN ×4 (00:49→23:56)
[2019-09-26 06:32] LABS: Anisocytosis Slight; HCT 27.9 % (34.0-46.0); HGB 9.2 gm/dL (11.4-16.0); Hypochromasia Slight; MCHC 32.8 g/dL (31.0-37.0); MCV 91.6 fL (80.0-100.0); Mean Platelet Volume 5.8; Platelet Count 367 k/uL (150-450); RBC 3.05 m/uL (3.80-5.40); RDW 16.4 % (11.5-15.5); WBC 11.9 k/uL (3.8-10.6)
[2019-09-26 06:45] LABS: Calcium 10.4 mg/dL (8.4-10.2); Potassium 4.4 mmol/L (3.5-5.1)
[2019-09-26 07:16] LABS: Glucose,Whole Blood 128 mg/dL (75-99)
[2019-09-26] MEDS: INSULIN ASPART (NovoLOG) 100 UNIT/ML VIAL SQ SCH ×7 (07:37→21:29)
[2019-09-26] MEDS: SODIUM CHLORIDE 0.9% 1,000 ML IV SCH (07:49)
[2019-09-26] MEDS: LEVOTHYROXINE 112 MCG TAB PO SCH (07:50)
[2019-09-26] MEDS: SERTRALINE 50 MG TAB PO SCH (08:33)
[2019-09-26] MEDS: MULTIVITAMINS, THERA 1 EACH TAB PO SCH (08:33)
[2019-09-26] MEDS: predniSONE 20 MG TAB PO SCH (08:33)
[2019-09-26] MEDS: DIVALPROEX SPRINKLE 125 MG CAP.SPRINK PO SCH (08:33)
[2019-09-26] MEDS: LISINOPRIL 5 MG TAB PO SCH (08:34)
[2019-09-26] MEDS: POTASSIUM CHLORIDE ER 10 MEQ TAB.ER.PRT PO SCH (08:34)
[2019-09-26] MEDS: FERROUS SULFATE 325 MG TAB PO SCH ×2 (08:34→21:18)
[2019-09-26] MEDS: FUROSEMIDE 20 MG TAB PO SCH ×2 (08:34→16:26)
[2019-09-26] MEDS: PRAVASTATIN SODIUM 20 MG TAB PO SCH (08:34)
[2019-09-26] MEDS: hydrALAZINE HCL 25 MG TAB PO SCH ×2 (08:34→21:31)
[2019-09-26] MEDS ORDERED: DIAZEPAM 5 MG TAB PO STA (08:37)
--- NOTE | 2019-09-26 10:28 | P.PN ---
Subjective Patient is seen in follow-up for acute kidney injury on chronic kidney disease. Patient is chronic kidney disease stage III with baseline creatinine in the range of 1.3-2. Currently resting in bed. Scheduled for MRI of the brain today. Admits to good urine output. No vomiting or diarrhea. Vital signs are stable. General: The patient appeared well nourished and normally developed. HEENT: Head exam is unremarkable. Neck is without jugular venous distension. LUNGS: Lungs are clear to auscultation and percussion. Breath sounds decreased. HEART: Rate and Rhythm are regular. First and second heart sounds normal. No murmurs, rubs or gallops. ABDOMEN: Abdominal exam reveals normal bowel sounds. Non-tender and non- distended. No evidence of peritonitis. EXTREMITITES: No clubbing, cyanosis, or edema. Objective - Vital Signs Vital signs: Vital Signs Temp 97.8 F 09/26/19 08:00 Pulse 112 H 09/26/19 08:00 Resp 20 09/26/19 08:00 BP 132/74 09/26/19 08:00 Pulse Ox 100 09/26/19 08:00 Intake & Output 09/25/19 09/26/19 09/26/19 18:59 06:59 18:59 Intake Total 1560 520 650 Balance 1560 520 650 Weight 58 kg Intake: Intake, IV Titration 400 Amount Sodium Chloride 0.9% 1, 400 000 ml @ 80 mls/hr IV . [id number] JC Rx#:[id number] Oral 1560 120 650 Other: Voiding Method Toilet Toilet # Voids 1 3 1 - Labs CBC & Chem 7: 09/26/19 05:16 09/26/19 05:16 Labs: Abnormal Lab Results - Last 24 Hours (Table) 09/25/19 09/25/19 09/25/19 Range/Units 11:13 12:09 17:16 WBC (3.8-10.6) k/uL RBC (3.80-5.40) m/uL Hgb (11.4-16.0) gm/dL Hct (34.0-46.0) % RDW (11.5-15.5) % Chloride (98-107) mmol/L Carbon Dioxide 19 L (22-30) mmol/L BUN 96 H (7-17) mg/dL Creatinine 2.07 H (0.52-1.04) mg/dL Glucose 302 H (74-99) mg/dL POC Glucose (mg/dL) 310 H 328 H (75-99) mg/dL Calcium (8.4-10.2) mg/dL 09/25/19 09/26/19 09/26/19 Range/Units 20:42 05:16 05:16 WBC 11.9 H (3.8-10.6) k/uL RBC 3.05 L (3.80-5.40) m/uL Hgb 9.2 L (11.4-16.0) gm/dL Hct 27.9 L (34.0-46.0) % RDW 16.4 H (11.5-15.5) % Chloride 110 H (98-107) mmol/L Carbon Dioxide 19 L (22-30) mmol/L BUN 85 H (7-17) mg/dL Creatinine 1.83 H (0.52-1.04) mg/dL Glucose 156 H (74-99) mg/dL POC Glucose (mg/dL) 402 H (75-99) mg/dL Calcium 10.4 H (8.4-10.2) mg/dL 09/26/19 Range/Units 07:15 WBC (3.8-10.6) k/uL RBC (3.80-5.40) m/uL Hgb (11.4-16.0) gm/dL Hct (34.0-46.0) % RDW (11.5-15.5) % Chloride (98-107) mmol/L Carbon Dioxide (22-30) mmol/L BUN (7-17) mg/dL Creatinine (0.52-1.04) mg/dL Glucose (74-99) mg/dL POC Glucose (mg/dL) 128 H (75-99) mg/dL Calcium (8.4-10.2) mg/dL Microbiology - Last 24 Hours (Table) 09/23/19 16:46 Urine Culture - Final Urine,Catheterized Escherichia coli Assessment and Plan Plan: Assessment: 1. Acute kidney injury mostly prerenal secondary to hypotension. Creatinine was 2.2 on admission and is down to 1.83 today. 2. Chronic kidney disease stage III secondary to nephrosclerosis/diabetic kidney disease with baseline creatinine in the range of 1.3-2. 3. History of hypercalcemia. 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 Parathyroid nuclear scan revealed no adenoma. She was unable to afford Sensipar. Maintained loop diuretic. 4. Diabetes mellitus. 5. Headache. Concern for temporal arteritis. Scheduled for temporal artery biopsy tomorrow. MRI today. 6. Anemia of chronic kidney disease. Rule out iron deficiency. 7. Hypertension with chronic kidney disease. Controlled. 8. Metabolic acidosis secondary to acute kidney injury. Plan: Hep-Lock IV fluids. Maintain Lasix 20 mg twice daily. Check PTH, vitamin D and 1,25 D3 level. Check electrophoresis studies. Check iron studies. Add oral sodium bicarbonate. Repeat electrolytes in the morning.
[2019-09-26] MEDS: PANTOPRAZOLE 40 MG/10 ML VIAL IVP SCH ×2 (10:40→21:19)
--- NOTE | 2019-09-26 12:28 | CDI ---
Documentation Clarification Form Date: 09/26/2019 12:02:39 PM From: Tara Ramirez RN, CCDS Admit Date: 09/23/2019 4:46:00 PM Patient Name: Tammi Schneider Visit Number: [id number] ATTENTION: The Clinical Documentation Specialists (CDI) and [facility] Coding Staff appreciate your assistance in clarifying documentation. Please respond to the clarification below the line at the bottom and electronically sign. The CDI & [facility] Coding staff will review the response and follow-up if needed. Please note: Queries are made part of the Legal Health Record. If you have any questions, please contact the author of this message via ITS. Dr. Cirilo Mccrary CHF is documented in the in the PMH, H&P, and progress notes and requires further specificity. History/Risk Factors: CHF, CVA, DM, HTN, acute on chronic renal failure stage 3 Clinical Indicators: VS/Pulse OX: Temp 99.6, hr 103, RR 20, B/P 87/44, spo2 99% ra BNP: not checked Echocardiogram Results: EF 45-50% with moderate pulmonary HTN 09/25/19 Chest X Ray: COPD, mild CHF, small bilateral pleural effusions T Treatment: Lasix 20 mg PO BID 1 L IVF Bolus In your professional opinion, can you please clarify the acuity and type of CHF if known? Systolic Heart Failure: Acute Chronic Acute on Chronic Diastolic Heart Failure: Acute Chronic Acute on Chronic Systolic & Diastolic Heart Failure: Acute Chronic Acute on Chronic Heart Failure Unable to Determine Other, please specify (Last Revision: February 2018) Chronic systolic heart failure MTDD
--- NOTE | 2019-09-26 12:38 | P.PN ---
Subjective Progress Note Date: 09/26/19 Patient continues to have headache, rates it 7/10 at baseline, but after Tylenol has come down to 4/10. It involves the neck, shoulder and hold head hurts. Patient does not believe prednisone has helped with her headache so far. No new focal symptoms. Denies fever or chills. Patient is scheduled for an MRA of the brain also. Patient's WBC count has gone up to 11.9 but that is likely from high-dose steroids. Patient is afebrile temperature 97.8. Objective - Vital Signs Vital signs: Vital Signs Temp 97.8 F 09/26/19 08:00 Pulse 112 H 09/26/19 08:00 Resp 20 09/26/19 08:00 BP 132/74 09/26/19 08:00 Pulse Ox 100 09/26/19 08:00 Intake & Output 09/25/19 09/26/19 09/26/19 18:59 06:59 18:59 Intake Total 1560 520 650 Balance 1560 520 650 Weight 58 kg Intake: Intake, IV Titration 400 Amount Sodium Chloride 0.9% 1, 400 000 ml @ 80 mls/hr IV . [id number] [facility] Rx#:[id number] Oral 1560 120 650 Other: Voiding Method Toilet Toilet # Voids 1 3 1 - Exam Patient's mental status, speech and language functions are normal. Muscle strength appears normal. - Labs CBC & Chem 7: 09/26/19 05:16 09/26/19 05:16 Labs: Abnormal Lab Results - Last 24 Hours (Table) 09/25/19 09/25/19 09/26/19 Range/Units 17:16 20:42 05:16 WBC 11.9 H (3.8-10.6) k/uL RBC 3.05 L (3.80-5.40) m/uL Hgb 9.2 L (11.4-16.0) gm/dL Hct 27.9 L (34.0-46.0) % RDW 16.4 H (11.5-15.5) % Chloride (98-107) mmol/L Carbon Dioxide (22-30) mmol/L BUN (7-17) mg/dL Creatinine (0.52-1.04) mg/dL Glucose (74-99) mg/dL POC Glucose (mg/dL) 328 H 402 H (75-99) mg/dL Calcium (8.4-10.2) mg/dL C-Reactive Protein (<10.0) mg/L 09/26/19 09/26/19 09/26/19 Range/Units 05:16 05:16 07:15 WBC (3.8-10.6) k/uL RBC (3.80-5.40) m/uL Hgb (11.4-16.0) gm/dL Hct (34.0-46.0) % RDW (11.5-15.5) % Chloride 110 H (98-107) mmol/L Carbon Dioxide 19 L (22-30) mmol/L BUN 85 H (7-17) mg/dL Creatinine 1.83 H (0.52-1.04) mg/dL Glucose 156 H (74-99) mg/dL POC Glucose (mg/dL) 128 H (75-99) mg/dL Calcium 10.4 H (8.4-10.2) mg/dL C-Reactive Protein 42.5 H (<10.0) mg/L Microbiology - Last 24 Hours (Table) 09/23/19 16:46 Urine Culture - Final Urine,Catheterized Escherichia coli Assessment and Plan Assessment: * 79-year-old female admitted with new onset headaches, neck and shoulder pain of 4 days duration. Exact cause is uncertain. ESR and CRP are significantly elevated, therefore need to rule out temporal arteritis. Patient's headaches so far has not resolved since being on high-dose steroids, which is unusual with GCA. * Acute on chronic renal failure. * Anemia Plan: * Patient has been started on prednisone 60 mg daily. So far her headaches have not resolved or improved, which is unusual, as headaches related to temporal arteritis improves rapidly with high-dose steroids. * Patient to undergo temporal artery biopsy on 09/27/2019. * May consider ophthalmology consult to rule out evidence of the GCA. * Computed tomography scan of the head without contrast showed cerebral atrophy and chronic small vessel ischemia. Old right parietal cortical infarct. We will check carotid Doppler. * Repeated ESR and CRP today. CRP has improved from 83.1 to 42.5. ESR has improved to 54 from 110. * MRA of the brain showed possibility of cerebrovascular disease versus vasculitis. No evidence of aneurysm. * We will start patient on aspirin 81 mg daily for stroke prevention. * If symptoms do not improve, may need lumbar puncture.
[2019-09-26 12:39] LABS: Glucose,Whole Blood 195 mg/dL (75-99)
[2019-09-26] MEDS: SODIUM BICARBONATE TAB 650 MG TAB PO SCH ×2 (12:50→21:19)
--- NOTE | 2019-09-26 12:57 | P.PN ---
Subjective Progress Note Date: 09/26/19 This is a 79-year-old female patient of Dr. Mills with past medical history of chronic kidney disease stage III, atrial fibrillation, chronic hypoxic respiratory failure on home O2, diabetes mellitus type 2, history of TIA, hypertension, seizure disorder without any recent seizure activity, gene ralized anxiety disorder and recurrent depression. Patient complains of sudden onset of weakness to the point that she could hardly walk. She also had pain on the right side of her face mandaen area in the back of her head. She denies any black stools, nausea vomiting. Her last hemoglobin the office was 10.6. Patient came into [facility] emergency center for evaluation. Patient was afebrile, blood pressure 87/44, pulse ox 99% on O2, pulse 95, respiratory rate 20, heart rate 103. WBC 12.8, hemoglobin 8.8, BUN 106 and creatinine 2.2 to with baseline of 1.2-1.3. Blood sugar 2193. Lactic acid 1.2 C-reactive protein 83.1, sed rate 110, blood sugar 219, troponin 0.055. Abdominal x-rays showed nonspecific nonobstructive bowel gas pattern. Patient has been seen by neurology with concern for giant cell arteritis and subsequently consult with vascular surgeon with plan for biopsy on Thursday. Patient is also been seen by nephrology for acute kidney injury. Cardiology is following for elevated troponins and echocardiogram has been ordered. 09/25: Nephrology continues to follow the patient with recommendations to continue IV fluids at 80 mL per hour. Hold lisinopril if blood pressures less than 100, check iron saturation, target blood pressure is 110 to 130 and avoid nephrotoxic agents. Echocardiogram reveals EF of 45-50% with mild concentric left ventricular hypertrophy, mild aortic valve sclerosis, mild aortic regurgitation, mild mitral regurgitation, mild tricuspid regurgitation, moderate pulmonary hypertension. Patient continues on prednisone 60 mg oral daily with plan for biopsy on Thursday with vascular surgery. Neurology has ordered MRA of the brain which is been scheduled. Patient is complaining of a dull headache this morning. She is requesting massage therapist which may be able to be arranged on Thursday. Blood pressure readings are now high at 166/71, heart rate 71, she is afebrile, pulse ox 94% on room air. Patient will be resumed on the lower dose of hydralazine 25 mg twice daily. Yesterday, we had discontinued hydralazine 75 mg 3 times daily. Patient has had a bowel movement and occult blood was negative. Hemoglobin is stable at 8.3 and CBC will be rechecked tomorrow. Urine culture is showing gram-negative bacilli. Discussed discharge planning and patient would like to go to [facility] which we will plan to arrange for Thursday. Social work consult added. PT and OT are following. 09/26: Patient has been afebrile, heart rate has been running in the 70s, blood pressure 132/74, pulse ox 100% on 2 L nasal cannula. Patient had one heart rate recorded as 112. Patient is scheduled for MRA of the brain this morning. Valium will be ordered as patient states she is claustrophobic. She continues to have headache and Inderal added. Urine culture is positive for pansensitive E. coli, ceftriaxone will be discontinued and start Keflex. Nephrology is recommending discontinuing IV fluids, continue Lasix 20 mg twice daily oral, sodium bicarb added, check parathyroid hormone, vitamin D, electrophoresis and iron studies. Review of Systems Constitutional: Denies chills, denies fatigue, denies fever, Reports poor appetite, Reports weakness, reports headache-dull ache Ears, nose, mouth and throat: Denies dysphagia, Denies nasal congestion, Denies nasal discharge, Denies vertigo Cardiovascular: Denies chest pain, denies dyspnea on exertion, denies shortness of breath, Denies leg edema, Denies lightheadedness Respiratory: Denies cough, denies dyspnea, denies respiratory infections, denies wheezing, Denies cough with sputum, Denies excessive sputum, Denies hemoptysis Gastrointestinal: Denies abdominal pain, Denies constipation, Denies dyspepsia, Denies loss of appetite, Denies nausea, Denies vomiting Genitourinary: Denies dysuria, Denies urgency, Denies urinary frequency Musculoskeletal: Reports gait dysfunction, Reports muscle weakness, Reports myalgias, Denies frequent falls Integumentary: Denies pruritus, Denies rash, Denies wounds Neurological: Reports weakness, Denies aphasia, Denies change in mentation, Denies change in speech, Denies confusion, Denies numbness, Denies seizures, Denies vertigo Psychiatric: Denies anxiety, Denies depression Endocrine: Reports fatigue, Denies weight change Objective - Vital Signs Vital signs: Vital Signs Temp 97.8 F 09/26/19 08:00 Pulse 112 H 09/26/19 08:00 Resp 20 09/26/19 08:00 BP 132/74 09/26/19 08:00 Pulse Ox 100 09/26/19 08:00 Intake & Output 09/25/19 09/26/19 09/26/19 18:59 06:59 18:59 Intake Total 1560 520 650 Balance 1560 520 650 Weight 58 kg Intake: Intake, IV Titration 400 Amount Sodium Chloride 0.9% 1, 400 000 ml @ 80 mls/hr IV . [id number] [facility] Rx#:[id number] Oral 1560 120 650 Other: Voiding Method Toilet Toilet # Voids 1 3 1 - Exam Gen: This is a 79-year-old obese female. Patient is resting in bed. HEENT: Head is atraumatic, normocephalic. Pupils equal, round. Sclerae is anicteric. NECK: Supple. No nuchal rigidity. No JVD. No lymphadenopathy. No thyromegaly. LUNGS: Diminished bilaterally with rales and scattered rhonchi.. No intercostal retractions. HEART: Regular rate and rhythm. Systolic murmur. ABDOMEN: Soft. Bowel sounds are present. No masses. No tenderness. EXTREMITIES: No pedal edema. No calf tenderness. Dorsalis pedis +2 bilaterally. NEUROLOGICAL: Patient is awake, alert and oriented x3. Cranial nerves 2 through 12 are grossly intact. - Labs CBC & Chem 7: 09/26/19 05:16 09/26/19 05:16 Labs: Abnormal Lab Results - Last 24 Hours (Table) 09/25/19 09/25/19 09/25/19 Range/Units 11:13 12:09 17:16 WBC (3.8-10.6) k/uL RBC (3.80-5.40) m/uL Hgb (11.4-16.0) gm/dL Hct (34.0-46.0) % RDW (11.5-15.5) % Chloride (98-107) mmol/L Carbon Dioxide 19 L (22-30) mmol/L BUN 96 H (7-17) mg/dL Creatinine 2.07 H (0.52-1.04) mg/dL Glucose 302 H (74-99) mg/dL POC Glucose (mg/dL) 310 H 328 H (75-99) mg/dL Calcium (8.4-10.2) mg/dL 09/25/19 09/26/19 09/26/19 Range/Units 20:42 05:16 05:16 WBC 11.9 H (3.8-10.6) k/uL RBC 3.05 L (3.80-5.40) m/uL Hgb 9.2 L (11.4-16.0) gm/dL Hct 27.9 L (34.0-46.0) % RDW 16.4 H (11.5-15.5) % Chloride 110 H (98-107) mmol/L Carbon Dioxide 19 L (22-30) mmol/L BUN 85 H (7-17) mg/dL Creatinine 1.83 H (0.52-1.04) mg/dL Glucose 156 H (74-99) mg/dL POC Glucose (mg/dL) 402 H (75-99) mg/dL Calcium 10.4 H (8.4-10.2) mg/dL 09/26/19 Range/Units 07:15 WBC (3.8-10.6) k/uL RBC (3.80-5.40) m/uL Hgb (11.4-16.0) gm/dL Hct (34.0-46.0) % RDW (11.5-15.5) % Chloride (98-107) mmol/L Carbon Dioxide (22-30) mmol/L BUN (7-17) mg/dL Creatinine (0.52-1.04) mg/dL Glucose (74-99) mg/dL POC Glucose (mg/dL) 128 H (75-99) mg/dL Calcium (8.4-10.2) mg/dL Microbiology - Last 24 Hours (Table) 09/23/19 16:46 Urine Culture - Final Urine,Catheterized Escherichia coli Assessment and Plan Plan: 1. Headache rule out temporal arteritis. Consult with neurology appreciated patient has been started on prednisone 60 mg daily. Vascular surgery has evaluated with plan for biopsy on Thursday. Eliquis has been placed on hold until after biopsy. MRA of the brain today. 2. Elevated troponins. Cardiology on consult. Echocardiogram as above. 3. Chronic anemia with possible GI bleed. Stool for occult blood was negative. Hemoglobin has been stable. 4. Generalized weakness secondary to acute E. coli urinary tract infection. Discontinue ceftriaxone and start Keflex. 5. Diabetes mellitus type 2. Continue Levemir 10 units at bedtime and NovoLog scale before meals and at bedtime. 6. Hypertension. Continue lisinopril 5 mg daily with parameters. Added and the lower dose of hydralazine at 25 mg twice daily and continue to hold Lasix. 7. Atrial fibrillation, paroxysmal. Hold eliquis. 8. Acute kidney injury secondary to hypotension due to recent blood pressure medication increase with Chronic kidney disease stage III. Consult with nephrology appreciated. Discontinue IV fluids, avoid nephrotoxic agents, hold lisinopril for blood pressure less than 110 and goal systolic blood pressure 110- 130. Continue Lasix 20 mg twice daily, sodium bicarb added. Parathyroid hormone, vitamin D level, electrophoresis and iron studies have been ordered by nephrology. 9. Generalized anxiety disorder and recurrent depression. Continue Xanax 0.25 mg twice daily as needed and Zoloft 50 mg daily. 10. 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 11. Anemia of chronic disease. Monitor hemoglobin. 12. Hypothyroidism. Continue levothyroxine 112 g daily. 13. Hyperlipidemia. Continue pravastatin 20 mg at bedtime. 14. GI prophylaxis and gastroesophageal reflux disease. Protonix twice daily and Carafate. 15. DVT prophylaxis. Hold eliquis. 16. Chronic diastolic heart failure. Discharge plan: [place] under the care of Dr. Mills on Thursday Impression and plan of care have been directed as dictated by the signing physician. Nubia Caruso nurse practitioner acting as scribe for signing physician.
[2019-09-26] MEDS: PROPRANOLOL LA 60 MG CAP.SA.24H PO SCH (13:49)
--- NOTE | 2019-09-26 14:12 | MR ---
EXAMINATION TYPE: MR angio head wo con DATE OF EXAM: 09/26/2019 COMPARISON: CT brain 09/26/2019 and MR brain 06/15/2012 HISTORY: Headache TECHNIQUE: Time of flight images focusing on the [place] were performed without contrast. Th ree-dimensional reconstructions performed on an alternate workstation. FINDINGS: The basilar artery shows tandem areas of relative narrowing and dilation possibly due to at heroma or developmental or vasculitic change rather than fusiform aneurysm. Mild wall irregularity al micki the internal carotid arteries is likely atheromatous or due to vasculitis. There is no evident an eurysm, dissection, or embolus. Persistent origin of the left posterior cerebral artery noted. Internal carotid arteries, basilar artery are patent. Left vertebral artery terminates along the infe rior cerebellar artery. IMPRESSION: There may be underlying cerebral vascular disease versus vasculitis. No evident aneurysm. Additional findings above.
--- NOTE | 2019-09-26 15:38 | P.PN ---
Subjective Progress Note Date: 09/26/19 This is a 79-year-old female with history of chronic kidney disease, atrial fibrillation, chronic hypoxic respiratory failure on home O2, diabetes, history of TIA, hypertension, seizure disorder, anxiety disorder and depression who presented to the hospital with sudden onset of weakness and inability to walk because of the weakness. In consultation by Dr. dallin Chance yesterday. Blood pressure 128/70 with a heart rate in the 80s, 100% on 2 L of oxygen. Sodium 137, potassium 4.4, BUN 96 and creatinine 2.0. An echocardiogram with Doppler study was performed which revealed an ejection fraction of 45-50% with apical hypokinesia noted. Tomorrow we will attempt to get an echo from the off ice to compare. It does appear that the patient's troponin abnormality was likely very to abnormal renal function. 09/26/2019 Patient seen and examined this morning, blood pressure 130/70 with a heart rate in the 70s, 100% on room air. Scheduled for an MRI of the brain this morning. Urine culture positive for pansensitive E. coli, ceftriaxone was discontinued and the patient was started on Keflex. Objective - Vital Signs Vital signs: Vital Signs Temp 97.8 F 09/26/19 08:00 Pulse 112 H 09/26/19 08:00 Resp 20 09/26/19 08:00 BP 132/74 09/26/19 08:00 Pulse Ox 100 09/26/19 08:00 Intake & Output 09/25/19 09/26/19 09/26/19 18:59 06:59 18:59 Intake Total 1560 520 650 Balance 1560 520 650 Weight 58 kg Intake: Intake, IV Titration 400 Amount Sodium Chloride 0.9% 1, 400 000 ml @ 80 mls/hr IV . [id number] [facility] Rx#:[id number] Oral 1560 120 650 Other: Voiding Method Toilet Toilet # Voids 1 3 1 - Exam Gen: This is a 79-year-old obese female. Patient is resting in bed and appears to be comfortable and in no acute distress. HEENT: Head is atraumatic, normocephalic. Pupils equal, round. Sclerae is anicteric. NECK: Supple. No nuchal rigidity. No JVD. No lymphadenopathy. No thyromegaly. LUNGS: Diminished bilaterally with rales and scattered rhonchi.. No intercostal retractions. HEART: Regular rate and rhythm. Systolic murmur. ABDOMEN: Soft. Bowel sounds are present. No masses. No tenderness. EXTREMITIES: No pedal edema. No calf tenderness. Dorsalis pedis +2 bilaterally. NEUROLOGICAL: Patient is awake, alert and oriented x3. Cranial nerves 2 through 12 are grossly intact. - Labs CBC & Chem 7: 09/26/19 05:16 09/26/19 05:16 Labs: Abnormal Lab Results - Last 24 Hours (Table) 09/25/19 09/25/19 09/26/19 Range/Units 17:16 20:42 05:16 WBC 11.9 H (3.8-10.6) k/uL RBC 3.05 L (3.80-5.40) m/uL Hgb 9.2 L (11.4-16.0) gm/dL Hct 27.9 L (34.0-46.0) % RDW 16.4 H (11.5-15.5) % ESR (0-20) mm/hr Chloride (98-107) mmol/L Carbon Dioxide (22-30) mmol/L BUN (7-17) mg/dL Creatinine (0.52-1.04) mg/dL Glucose (74-99) mg/dL POC Glucose (mg/dL) 328 H 402 H (75-99) mg/dL Calcium (8.4-10.2) mg/dL C-Reactive Protein (<10.0) mg/L 09/26/19 09/26/19 09/26/19 Range/Units 05:16 05:16 05:16 WBC (3.8-10.6) k/uL RBC (3.80-5.40) m/uL Hgb (11.4-16.0) gm/dL Hct (34.0-46.0) % RDW (11.5-15.5) % ESR 54 H (0-20) mm/hr Chloride 110 H (98-107) mmol/L Carbon Dioxide 19 L (22-30) mmol/L BUN 85 H (7-17) mg/dL Creatinine 1.83 H (0.52-1.04) mg/dL Glucose 156 H (74-99) mg/dL POC Glucose (mg/dL) (75-99) mg/dL Calcium 10.4 H (8.4-10.2) mg/dL C-Reactive Protein 42.5 H (<10.0) mg/L 09/26/19 09/26/19 Range/Units 07:15 12:37 WBC (3.8-10.6) k/uL RBC (3.80-5.40) m/uL Hgb (11.4-16.0) gm/dL Hct (34.0-46.0) % RDW (11.5-15.5) % ESR (0-20) mm/hr Chloride (98-107) mmol/L Carbon Dioxide (22-30) mmol/L BUN (7-17) mg/dL Creatinine (0.52-1.04) mg/dL Glucose (74-99) mg/dL POC Glucose (mg/dL) 128 H 195 H (75-99) mg/dL Calcium (8.4-10.2) mg/dL C-Reactive Protein (<10.0) mg/L Microbiology - Last 24 Hours (Table) 09/23/19 16:46 Urine Culture - Final Urine,Catheterized Escherichia coli Assessment and Plan Plan: Assessment and Plan: 1. Headache rule out temporal arteritis. 2. Elevated troponins. Likely secondary to abnormal renal function 3. Chronic anemia with possible GI bleed. Stool for occult blood was negative. Hemoglobin has been stable. 4. Generalized weakness secondary to acute urinary tract infection. 5. Diabetes mellitus type 2. 6. Hypertension. 7. Atrial fibrillation, paroxysmal. 8. Acute kidney injury secondary to hypotension due to recent blood pressure medication increase with Chronic kidney disease stage III. 9. Generalized anxiety disorder and recurrent depression. 10. Hypercalcemia 11. Anemia of chronic disease. 12. Hypothyroidism. 13. Hyperlipidemia. 14. GI prophylaxis and gastroesophageal reflux disease. 15. DVT prophylaxis. Plan From cardiology's perspective, we'll continue this patient on her current medications. DNP note has been reviewed, I agree with a documented findings and plan of care. Patient was seen and examined.
[2019-09-26] MEDS: CEPHALEXIN 500 MG CAP PO SCH ×2 (16:26→21:19)
[2019-09-26 17:01] LABS: % Iron Saturation 26.56 (12.00-45.00)
[2019-09-26 17:11] LABS: Ferritin 269.2 ng/mL (10.0-291.0)
[2019-09-26 17:45] LABS: Glucose,Whole Blood 322 mg/dL (75-99)
[2019-09-26] MEDS: ASPIRIN 81 MG PO SCH (18:07)
[2019-09-26] MEDS: MELATONIN 5 MG TABLET PO SCH (21:18)
[2019-09-26 21:26] LABS: Glucose,Whole Blood 358 mg/dL (75-99)
[2019-09-26] MEDS: INSULIN DETEMIR (LEVEMIR) 100 UNIT/ML SYR SQ SCH (21:30)
[2019-09-27 06:02] LABS: Calcium 10.4 mg/dL (8.4-10.2); Magnesium 2.2 mg/dL (1.6-2.3); Potassium 4.9 mmol/L (3.5-5.1)
[2019-09-27 06:27] LABS: Glucose,Whole Blood 206 mg/dL (75-99)
[2019-09-27] MEDS: INSULIN ASPART (NovoLOG) 100 UNIT/ML VIAL SQ SCH ×7 (06:29→21:36)
[2019-09-27] MEDS: LEVOTHYROXINE 112 MCG TAB PO SCH (06:30)
--- NOTE | 2019-09-27 06:45 | US ---
EXAMINATION TYPE: US carotid duplex BILAT DATE OF EXAM: 09/26/2019 COMPARISON: NONE CLINICAL HISTORY: Headache, possible stenosis, previous stroke. EXAM MEASUREMENTS: RIGHT: Peak Systolic Velocity (PSV) cm/sec ----- Right CCA: 45.3 ----- Right ICA: 46.0 ----- Right ECA: 50.3 ICA/CCA ratio: 1.0 RIGHT: End Diastole cm/sec ----- Right CCA: 11.8 ----- Right ICA: 12.5 ----- Right ECA: 6.1 LEFT: Peak Systolic Velocity (PSV) cm/sec ----- Left CCA: 50.4 ----- Left ICA: 64.4 ----- Left ECA: 54.3 ICA/CCA ratio: 1.3 LEFT: End Diastole cm/sec ----- Left CCA: 12.8 ----- Left ICA: 13.7 ----- Left ECA: 16.4 VERTEBRALS (direction of flow): Right Vertebral: Antegrade Left Vertebral: Antegrade Rhythm: Normal Mild atherosclerotic changes with no significant velocity increases seen bilaterally. IMPRESSION: There is antegrade flow in the vertebral arteries. The images and measurements suggest up to 30% sten osis in both internal carotid arteries. Criteria for Assigning % of Stenosis / Diameter reduction (Estimation based on the indirect measurements of the internal carotid artery velocities (ICA PSV). 1. Normal (no stenosis)=ICA PSV < 125 cm/s: ratio < 2.0: ICA EDV<40 cm/s. 2. Less than 50% stenosis=ICA PSV < 125 cm/s: ratio < 2.0: ICA EDV<40 cm/s. 3. 50 to 69% stenosis=ICA PSV of 125 to 230 cm/s: ration 2.0 ? 4.0: ICA EDV 40-100 cm/s. 4. Greater than 70% stenosis to near occlusion= ICA PSV > 230 cm/s: ratio > 4.0: ICA EDV > 100 cm/s. 5. Near occlusion= ICA PSV velocities may be low or undetectable: variable ratio and ICA EDV. 6. Total occlusion=unable to detect flow.
--- NOTE | 2019-09-27 09:02 | P.PN ---
Subjective Patient is seen in follow-up for acute kidney injury on chronic kidney disease. Patient is chronic kidney disease stage III with baseline creatinine in the range of 1.3-2. Currently resting in bed. Scheduled for temporal artery biopsy today. Admits to good urine output. No vomiting or diarrhea. Vital signs are stable. General: The patient appeared well nourished and normally developed. HEENT: Head exam is unremarkable. Neck is without jugular venous distension. LUNGS: Lungs are clear to auscultation and percussion. Breath sounds decreased. HEART: Rate and Rhythm are regular. First and second heart sounds normal. No murmurs, rubs or gallops. ABDOMEN: Abdominal exam reveals normal bowel sounds. Non-tender and non- distended. No evidence of peritonitis. EXTREMITITES: No clubbing, cyanosis, or edema. Objective - Vital Signs Vital signs: Vital Signs Temp 97.7 F 09/27/19 04:00 Pulse 63 09/27/19 04:00 Resp 18 09/27/19 04:00 BP 108/62 09/27/19 04:00 Pulse Ox 100 09/27/19 04:00 Intake & Output 09/26/19 09/27/19 09/27/19 18:59 06:59 18:59 Intake Total 1050 Output Total 300 Balance 750 Weight 58.2 kg Intake: Oral 1050 Output: Urine 300 Other: Voiding Method Toilet # Voids 1 1 - Labs CBC & Chem 7: 09/26/19 05:16 09/27/19 05:36 Labs: Abnormal Lab Results - Last 24 Hours (Table) 09/26/19 09/26/19 09/26/19 Range/Units 05:16 05:16 12:37 ESR 54 H (0-20) mm/hr Chloride (98-107) mmol/L BUN (7-17) mg/dL Creatinine (0.52-1.04) mg/dL Glucose (74-99) mg/dL POC Glucose (mg/dL) 195 H (75-99) mg/dL Calcium (8.4-10.2) mg/dL C-Reactive Protein 42.5 H (<10.0) mg/L 09/26/19 09/26/19 09/27/19 Range/Units 17:44 21:25 05:36 ESR (0-20) mm/hr Chloride 110 H (98-107) mmol/L BUN 82 H (7-17) mg/dL Creatinine 1.81 H (0.52-1.04) mg/dL Glucose 190 H (74-99) mg/dL POC Glucose (mg/dL) 322 H 358 H (75-99) mg/dL Calcium 10.4 H (8.4-10.2) mg/dL C-Reactive Protein (<10.0) mg/L 09/27/19 Range/Units 06:26 ESR (0-20) mm/hr Chloride (98-107) mmol/L BUN (7-17) mg/dL Creatinine (0.52-1.04) mg/dL Glucose (74-99) mg/dL POC Glucose (mg/dL) 206 H (75-99) mg/dL Calcium (8.4-10.2) mg/dL C-Reactive Protein (<10.0) mg/L Assessment and Plan Plan: Assessment: 1. Acute kidney injury mostly prerenal secondary to hypotension. Creatinine was 2.2 on admission and is down to 1.81 today. 2. Chronic kidney disease stage III secondary to nephrosclerosis/diabetic kidney disease with baseline creatinine in the range of 1.3-2. 3. History of hypercalcemia. 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 Parathyroid nuclear scan revealed no adenoma. She was unable to afford Sensipar. Maintained on loop diuretic. Calcium level stable at 10.4. Vitamin D level 57.2. 4. Diabetes mellitus. 5. Headache. Concern for temporal arteritis. Scheduled for temporal artery biopsy today. 6. Anemia of chronic kidney disease. Iron replete. 7. Hypertension with chronic kidney disease. Controlled. 8. Metabolic acidosis secondary to acute kidney injury. Maintained on oral sodium bicarbonate. Better. Plan: Maintain Lasix 20 mg twice daily. Follow-up pending workup for hypercalcemia. Add Aranesp. Zometa 4 mg IV once today. Repeat electrolytes in the morning. Hold antihypertensives for systolic blood pressure less than 120.
[2019-09-27] MEDS ORDERED: DARBEPOETIN ALFA 40 MCG/0.4 ML SYRINGE SQ SCH (09:15)
[2019-09-27] MEDS ORDERED: ZOLEDRONIC ACID 4 MG in SODIUM CHLORIDE 0.9% 100 ML IV ONE (09:15)
[2019-09-27] MEDS ORDERED: LACTATED RINGERS 1,000 ML IV ONE (11:35)
[2019-09-27] MEDS ORDERED: MIDAZOLAM 2 MG/2 ML VIAL ONE (12:05)
[2019-09-27] MEDS ORDERED: fentaNYL (PF) 50 MCG/ML 2 ML AMP ONE (12:05)
[2019-09-27] MEDS ORDERED: LIDOCAINE 1% INJ 10MG/ML (20 ML MDV) SQ ONE ×2 (12:35)
--- NOTE | 2019-09-27 12:48 | P.OP ---
Date of Procedure: 09/27/19 Description of Procedure: Preoperative diagnosis: New onset severe headache, elevated sed rate, rule out temporal arteritis Postoperative diagnosis: Same Procedure: Right temporal artery biopsy Surgeon: Soumya Fam D.O. EBL: 5cc IV fluids: []See anesthesia records Urine output: not measured Drains: none Complications: none immediately apparent Condition: stable to PACU Operative indication and findings: the patient is a 79-year-old female with new onset of severe headaches. She presented to the hospital for this. It was non-remitting. Upon laboratory workup she was found to have elevated sed rate and CRP. We are asked to see the patient regarding a temporal artery biopsy. Risks and benefits were discussed with the patient in the family. They seemingly understood and were willing to proceed as planned Procedure in detail: [ The patient was taken to the operative suite and placed in supine position. The right temporal area was prepped after surgical clips hair. It was draped in usual sterile fashion. A preprocedure timeout was performed, all parties are in agreement. The area of the palpable temporal pulse was marked. The skin was anesthetized 1% lidocaine plain. An incision was made and deepened through the subcutaneous tissues to the level of the temporal artery. It was dissected free circumferentially actually and distally for a length of 2 cm. It was ligated proximally and distally with 4-0 ties. The area was irrigated with saline. The deep dermal tissues were reapproximated with interrupted sutures of 3-0 Vicryl. The skin was reapproximated with running 4-0 Monocryl in subcuticular fashion. A antibiotic ointment was placed over the incision. The patient was allowed awaken from anesthesia and transported to PACU in stable condition having tolerated the procedure well.]
[2019-09-27] MEDS ORDERED: BACITRACIN OINT 1 EACH PACKET TOPICAL ONE (12:54)
--- NOTE | 2019-09-27 13:36 | P.PN ---
Subjective Progress Note Date: 09/27/19 This is a 79-year-old female patient of Dr. Mills with past medical history of chronic kidney disease stage III, atrial fibrillation, chronic hypoxic respiratory failure on home O2, diabetes mellitus type 2, history of TIA, hypertension, seizure disorder without any recent seizure activity, gene ralized anxiety disorder and recurrent depression. Patient complains of sudden onset of weakness to the point that she could hardly walk. She also had pain on the right side of her face zoroastrian area in the back of her head. She denies any black stools, nausea vomiting. Her last hemoglobin the office was 10.6. Patient came into [facility] for evaluation. Patient was afebrile, blood pressure 87/44, pulse ox 99% on O2, pulse 95, respiratory rate 20, heart rate 103. WBC 12.8, hemoglobin 8.8, BUN 106 and creatinine 2.2 to with baseline of 1.2-1.3. Blood sugar 2193. Lactic acid 1.2 C-reactive protein 83.1, sed rate 110, blood sugar 219, troponin 0.055. Abdominal x-rays showed nonspecific nonobstructive bowel gas pattern. Patient has been seen by neurology with concern for giant cell arteritis and subsequently consult with vascular surgeon with plan for biopsy on Thursday. Patient is also been seen by nephrology for acute kidney injury. Cardiology is following for elevated troponins and echocardiogram has been ordered. 09/25: Nephrology continues to follow the patient with recommendations to continue IV fluids at 80 mL per hour. Hold lisinopril if blood pressures less than 100, check iron saturation, target blood pressure is 110 to 130 and avoid nephrotoxic agents. Echocardiogram reveals EF of 45-50% with mild concentric left ventricular hypertrophy, mild aortic valve sclerosis, mild aortic regurgitation, mild mitral regurgitation, mild tricuspid regurgitation, moderate pulmonary hypertension. Patient continues on prednisone 60 mg oral daily with plan for biopsy on Thursday with vascular surgery. Neurology has ordered MRA of the brain which is been scheduled. Patient is complaining of a dull headache this morning. She is requesting massage therapist which may be able to be arranged on Thursday. Blood pressure readings are now high at 166/71, heart rate 71, she is afebrile, pulse ox 94% on room air. Patient will be resumed on the lower dose of hydralazine 25 mg twice daily. Yesterday, we had discontinued hydralazine 75 mg 3 times daily. Patient has had a bowel movement and occult blood was negative. Hemoglobin is stable at 8.3 and CBC will be rechecked tomorrow. Urine culture is showing gram-negative bacilli. Discussed discharge planning and patient would like to go to [facility] which we will plan to arrange for Thursday. Social work consult added. PT and OT are following. 09/26: Patient has been afebrile, heart rate has been running in the 70s, blood pressure 132/74, pulse ox 100% on 2 L nasal cannula. Patient had one heart rate recorded as 112. Patient is scheduled for MRA of the brain this morning. Valium will be ordered as patient states she is claustrophobic. She continues to have headache and Inderal added. Urine culture is positive for pansensitive E. coli, ceftriaxone will be discontinued and start Keflex. Nephrology is recommending discontinuing IV fluids, continue Lasix 20 mg twice daily oral, sodium bicarb added, check parathyroid hormone, vitamin D, electrophoresis and iron studies. 09/27: Patient is scheduled for temporary artery biopsy today. She will be resumed back on eliquis 5 mg twice daily starting tonight. Repeat lab work reveals chloride 110, CO2 22, BUN 82 and creatinine 1.81. Blood sugars were 300s during the night and this morning 190. Insulins will be adjusted. Patient has been afebrile, blood pressure 108/62, heart rate in the 60s, pulse ox 100% on 2 L nasal cannula. MRA of the brain revealed underlying cerebral vascular disease versus vasculitis. No evident aneurysm. Dr. Bowen has ordered 1 dose of Zometa 4 mg IV today, Aranesp added. Continue Lasix 20 mg twice daily. Angiotensin I converting enzyme, immunofixation, parathyroid hormone intact pending. Vitamin D 25 is 57.2. Review of Systems Constitutional: Denies chills, denies fatigue, denies fever, Reports poor appetite, Reports weakness, reports headache-dull ache Ears, nose, mouth and throat: Denies dysphagia, Denies nasal congestion, Denies nasal discharge, Denies vertigo Cardiovascular: Denies chest pain, denies dyspnea on exertion, denies shortness of breath, Denies leg edema, Denies lightheadedness Respiratory: Denies cough, denies dyspnea, denies respiratory infections, denies wheezing, Denies cough with sputum, Denies excessive sputum, Denies h emoptysis Gastrointestinal: Denies abdominal pain, Denies constipation, Denies dyspepsia, Denies loss of appetite, Denies nausea, Denies vomiting Genitourinary: Denies dysuria, Denies urgency, Denies urinary frequency Musculoskeletal: Reports gait dysfunction, Reports muscle weakness, Reports myalgias, Denies frequent falls Integumentary: Denies pruritus, Denies rash, Denies wounds Neurological: Reports weakness, Denies aphasia, Denies change in mentation, Denies change in speech, Denies confusion, Denies numbness, Denies seizures, Denies vertigo Psychiatric: Denies anxiety, Denies depression Endocrine: Reports fatigue, Denies weight change Objective - Vital Signs Vital signs: Vital Signs Temp 97.7 F 09/27/19 04:00 Pulse 63 09/27/19 04:00 Resp 18 09/27/19 04:00 BP 108/62 09/27/19 04:00 Pulse Ox 100 09/27/19 04:00 Intake & Output 09/26/19 09/27/19 09/27/19 18:59 06:59 18:59 Intake Total 1050 Output Total 300 Balance 750 Weight 58.2 kg Intake: Oral 1050 Output: Urine 300 Other: Voiding Method Toilet # Voids 1 1 - Exam Gen: This is a 79-year-old obese female. Patient is resting in bed. HEENT: Head is atraumatic, normocephalic. Pupils equal, round. Sclerae is anicteric. NECK: Supple. No nuchal rigidity. No JVD. No lymphadenopathy. No thyromegaly. LUNGS: Diminished bilaterally with rales and scattered rhonchi.. No intercostal retractions. HEART: Regular rate and rhythm. Systolic murmur. ABDOMEN: Soft. Bowel sounds are present. No masses. No tenderness. EXTREMITIES: No pedal edema. No calf tenderness. Dorsalis pedis +2 bilaterally. NEUROLOGICAL: Patient is awake, alert and oriented x3. Cranial nerves 2 through 12 are grossly intact. - Labs CBC & Chem 7: 09/26/19 05:16 09/27/19 05:36 Labs: Abnormal Lab Results - Last 24 Hours (Table) 09/26/19 09/26/19 09/26/19 Range/Units 05:16 05:16 12:37 ESR 54 H (0-20) mm/hr Chloride (98-107) mmol/L BUN (7-17) mg/dL Creatinine (0.52-1.04) mg/dL Glucose (74-99) mg/dL POC Glucose (mg/dL) 195 H (75-99) mg/dL Calcium (8.4-10.2) mg/dL C-Reactive Protein 42.5 H (<10.0) mg/L 09/26/19 09/26/19 09/27/19 Range/Units 17:44 21:25 05:36 ESR (0-20) mm/hr Chloride 110 H (98-107) mmol/L BUN 82 H (7-17) mg/dL Creatinine 1.81 H (0.52-1.04) mg/dL Glucose 190 H (74-99) mg/dL POC Glucose (mg/dL) 322 H 358 H (75-99) mg/dL Calcium 10.4 H (8.4-10.2) mg/dL C-Reactive Protein (<10.0) mg/L 09/27/19 Range/Units 06:26 ESR (0-20) mm/hr Chloride (98-107) mmol/L BUN (7-17) mg/dL Creatinine (0.52-1.04) mg/dL Glucose (74-99) mg/dL POC Glucose (mg/dL) 206 H (75-99) mg/dL Calcium (8.4-10.2) mg/dL C-Reactive Protein (<10.0) mg/L Assessment and Plan Plan: 1. Headache rule out temporal arteritis. Consult with neurology appreciated patient has been started on prednisone 60 mg daily. Vascular surgery has evaluated with plan for biopsy on Thursday. Eliquis has been placed on hold until after biopsy. MRA of the brain today. 2. Elevated troponins. Cardiology on consult. Echocardiogram as above. 3. Chronic anemia with possible GI bleed. Stool for occult blood was negative. Hemoglobin has been stable. 4. Generalized weakness secondary to acute E. coli urinary tract infection. Discontinue ceftriaxone and start Keflex. 5. Diabetes mellitus type 2 uncontrolled with hyperglycemia secondary to steroids. Increase Levemir to 18 units at bedtime, increase NovoLog 8 units with breakfast and lunch and 5 units with supper, continue NovoLog scale before meals and at bedtime. 6. Hypertension. Continue lisinopril 5 mg daily with parameters. Added and the lower dose of hydralazine at 25 mg twice daily and continue to hold Lasix. Inderal has been added 7. Atrial fibrillation, paroxysmal. Hold eliquis. 8. Acute kidney injury secondary to hypotension due to recent blood pressure medication increase with Chronic kidney disease stage III. Consult with nephrology appreciated. Discontinue IV fluids, avoid nephrotoxic agents, hold lisinopril for blood pressure less than 110 and goal systolic blood pressure 110- 130. Continue Lasix 20 mg twice daily, sodium bicarb added. Parathyroid hormone, vitamin D level, electrophoresis and iron studies have been ordered by nephrology. 9. Generalized anxiety disorder and recurrent depression. Continue Xanax 0.25 mg twice daily as needed and Zoloft 50 mg daily. 10. 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 11. Anemia of chronic disease. Monitor hemoglobin. 12. Hypothyroidism. Continue levothyroxine 112 g daily. 13. Hyperlipidemia. Continue pravastatin 20 mg at bedtime. 14. GI prophylaxis and gastroesophageal reflux disease. Protonix twice daily and Carafate. 15. DVT prophylaxis. Hold eliquis. 16. Chronic diastolic heart failure. Discharge plan: [place] under the care of Dr. Mills on Thursday Impression and plan of care have been directed as dictated by the signing physician. Nubia Caruso nurse practitioner acting as scribe for signing dereck reinoso.
--- NOTE | 2019-09-27 17:11 | P.PN ---
Subjective Progress Note Date: 09/27/19 Patient essentially unchanged. Patient continues to have headache, rates it 7/10 at baseline, but after Tylenol has come down to 4-5/10. It involves the neck, shoulder and the whole head hurts. Patient does not believe prednisone has helped with her headache so far. No new focal symptoms. Denies fever or chills. Patient had undergone right temporal artery biopsy today. Patient's WBC count has gone up to 11.9 but that is likely from high-dose steroids. Patient is afebrile temperature 97.8. Objective - Vital Signs Vital signs: Vital Signs Temp 97.5 F L 09/27/19 12:55 Pulse 74 09/27/19 13:30 Resp 16 09/27/19 13:30 BP 122/74 09/27/19 13:30 Pulse Ox 95 09/27/19 13:30 Intake & Output 09/26/19 09/27/19 09/27/19 18:59 06:59 18:59 Intake Total 1050 500 Output Total 300 3 Balance 750 497 Weight 58.2 kg Intake: IV 500 Oral 1050 Output: Urine 300 Estimated Blood Loss 3 Other: Voiding Method Toilet # Voids 1 1 - Exam Patient's mental status, speech and language functions are normal. Muscle strength appears normal. Face is symmetric and tongue protrudes the midline. - Labs CBC & Chem 7: 09/26/19 05:16 09/27/19 05:36 Labs: Abnormal Lab Results - Last 24 Hours (Table) 09/26/19 09/26/19 09/27/19 Range/Units 17:44 21:25 05:36 Chloride 110 H (98-107) mmol/L BUN 82 H (7-17) mg/dL Creatinine 1.81 H (0.52-1.04) mg/dL Glucose 190 H (74-99) mg/dL POC Glucose (mg/dL) 322 H 358 H (75-99) mg/dL Calcium 10.4 H (8.4-10.2) mg/dL 09/27/19 Range/Units 06:26 Chloride (98-107) mmol/L BUN (7-17) mg/dL Creatinine (0.52-1.04) mg/dL Glucose (74-99) mg/dL POC Glucose (mg/dL) 206 H (75-99) mg/dL Calcium (8.4-10.2) mg/dL Assessment and Plan Assessment: * 79-year-old female admitted with new onset headaches, neck and shoulder pain of 4 days duration. Exact cause is uncertain. ESR and CRP are significantly elevated, therefore need to rule out temporal arteritis. Patient's headaches so far has not resolved since being on high-dose steroids, which is unusual with GCA. Patient is status post right temporal artery biopsy. * Acute on chronic renal failure. * Anemia Plan: * Patient currently on prednisone 60 mg daily. So far her headaches have not resolved or improved, which is unusual, as headaches related to temporal arteritis improves rapidly with high-dose steroids. * Patient is status post right temporal artery biopsy today on 09/27/2019. * Computed tomography scan of the head without contrast showed cerebral atrophy and chronic small vessel ischemia. Old right parietal cortical infarct. We will check carotid Doppler. * Repeated CRP has improved from 83.1 to 42.5. ESR has improved to 54 from 110. * MRA of the brain showed possibility of cerebrovascular disease versus vasculitis. No evidence of aneurysm. * Continue aspirin 81 mg daily for stroke prevention. * Await results of temporal artery biopsy. * Consider lumbar puncture if the headache persists by tomorrow morning.
[2019-09-27 17:12] LABS: Glucose,Whole Blood 93 mg/dL (75-99)
[2019-09-27] MEDS: CEPHALEXIN 500 MG CAP PO SCH ×3 (17:18→22:44)
[2019-09-27] MEDS: FERROUS SULFATE 325 MG TAB PO SCH ×2 (17:18→22:36)
[2019-09-27] MEDS: FUROSEMIDE 20 MG TAB PO SCH ×2 (17:18→18:06)
[2019-09-27] MEDS: hydrALAZINE HCL 25 MG TAB PO SCH ×2 (17:19→21:36)
[2019-09-27] MEDS: MULTIVITAMINS, THERA 1 EACH TAB PO SCH (17:19)
[2019-09-27] MEDS: PANTOPRAZOLE 40 MG/10 ML VIAL IVP SCH ×2 (17:19→22:37)
[2019-09-27] MEDS: SODIUM BICARBONATE TAB 650 MG TAB PO SCH ×2 (17:33→22:37)
[2019-09-27] MEDS: predniSONE 20 MG TAB PO SCH (18:06)
[2019-09-27] MEDS: ASPIRIN 81 MG PO SCH (18:06)
[2019-09-27] MEDS: SERTRALINE 50 MG TAB PO SCH (18:06)
[2019-09-27] MEDS: LISINOPRIL 5 MG TAB PO SCH (18:06)
[2019-09-27] MEDS: POTASSIUM CHLORIDE ER 10 MEQ TAB.ER.PRT PO SCH (18:07)
[2019-09-27] MEDS: PRAVASTATIN SODIUM 20 MG TAB PO SCH (18:07)
[2019-09-27] MEDS: PROPRANOLOL LA 60 MG CAP.SA.24H PO SCH (18:07)
[2019-09-27] MEDS: DIVALPROEX SPRINKLE 125 MG CAP.SPRINK PO SCH (18:07)
[2019-09-27] MEDS: ACETAMINOPHEN TAB 325 MG TAB PO PRN (18:16)
[2019-09-27 20:26] LABS: Glucose,Whole Blood 212 mg/dL (75-99)
[2019-09-27] MEDS: INSULIN DETEMIR (LEVEMIR) 100 UNIT/ML SYR SQ SCH (21:36)
[2019-09-27] MEDS: APIXABAN 5 MG TAB PO SCH (22:36)
[2019-09-27] MEDS: MELATONIN 5 MG TABLET PO SCH (22:36)
[2019-09-28] MEDS: LEVOTHYROXINE 112 MCG TAB PO SCH (05:51)
[2019-09-28] MEDS: ACETAMINOPHEN TAB 325 MG TAB PO PRN ×2 (05:51→17:54)
[2019-09-28 06:53] LABS: Calcium 9.7 mg/dL (8.4-10.2); Magnesium 2.1 mg/dL (1.6-2.3); Potassium 5.3 mmol/L (3.5-5.1)
[2019-09-28 07:12] LABS: Glucose,Whole Blood 160 mg/dL (75-99)
[2019-09-28] MEDS: INSULIN ASPART (NovoLOG) 100 UNIT/ML VIAL SQ SCH ×7 (07:12→21:27)
[2019-09-28 09:07] LABS: Angiotensin-1 Converting Enz. 10 U/L (8-52)
--- NOTE | 2019-09-28 09:14 | P.PN ---
Subjective Patient is seen in follow-up for acute kidney injury on chronic kidney disease. Patient is chronic kidney disease stage III with baseline creatinine in the range of 1.3-2. Renal function is improving. Creatinine 1.5 today. Currently resting in bed. Underwent temporal artery biopsy yesterday. Admits to good urine output. No vomiting or diarrhea. Vital signs are stable. General: The patient appeared well nourished and normally developed. HEENT: Head exam is unremarkable. Neck is without jugular venous distension. LUNGS: Lungs are clear to auscultation and percussion. Breath sounds decreased. HEART: Rate and Rhythm are regular. First and second heart sounds normal. No murmurs, rubs or gallops. ABDOMEN: Abdominal exam reveals normal bowel sounds. Non-tender and non- distended. No evidence of peritonitis. EXTREMITITES: No clubbing, cyanosis, or edema. Objective - Vital Signs Vital signs: Vital Signs Temp 97.7 F 09/28/19 04:00 Pulse 58 L 09/28/19 04:00 Resp 18 09/28/19 04:00 BP 117/67 09/28/19 04:00 Pulse Ox 97 09/28/19 04:00 Intake & Output 09/27/19 09/28/19 09/28/19 18:59 06:59 18:59 Intake Total 860 Output Total 3 Balance 857 Weight 58.1 kg Intake: IV 500 Oral 360 Output: Estimated Blood Loss 3 Other: Voiding Method Toilet # Voids 2 1 - Labs CBC & Chem 7: 09/26/19 05:16 09/28/19 06:23 Labs: Abnormal Lab Results - Last 24 Hours (Table) 09/27/19 09/27/19 09/28/19 Range/Units 05:39 20:24 06:23 Potassium 5.3 H (3.5-5.1) mmol/L Chloride 112 H (98-107) mmol/L BUN 81 H (7-17) mg/dL Creatinine 1.50 H (0.52-1.04) mg/dL Glucose 158 H (74-99) mg/dL POC Glucose (mg/dL) 212 H (75-99) mg/dL PTH Intact 153.9 H (14.0-72.0) pg/mL 09/28/19 Range/Units 07:09 Potassium (3.5-5.1) mmol/L Chloride (98-107) mmol/L BUN (7-17) mg/dL Creatinine (0.52-1.04) mg/dL Glucose (74-99) mg/dL POC Glucose (mg/dL) 160 H (75-99) mg/dL PTH Intact (14.0-72.0) pg/mL Assessment and Plan Plan: Assessment: 1. Acute kidney injury mostly prerenal secondary to hypotension. Creatinine was 2.2 on admission and is down to 1.5 today. 2. Chronic kidney disease stage III secondary to nephrosclerosis/diabetic kidney disease with baseline creatinine in the range of 1.3-2. 3. History of hypercalcemia. 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 Parathyroid nuclear scan revealed no adenoma. She was unable to afford Sensipar. Maintained on loop diuretic. Calcium level better at 9.7 today. Vitamin D level 57.2. PTH elevated at 153.9. NICOLA 10. 4. Diabetes mellitus. 5. Headache. Concern for temporal arteritis. Status post temporal artery biopsy on September 27. 6. Anemia of chronic kidney disease. Iron replete. Maintained on Aranesp. 7. Hypertension with chronic kidney disease. Controlled. 8. Metabolic acidosis secondary to acute kidney injury. Maintained on oral sodium bicarbonate. Better. Plan: Decrease Lasix to 20 mg once daily. Status post Zometa on September 27. Follow-up urine immunofixation. Repeat electrolytes in the morning. Hold antihypertensives for systolic blood pressure less than 120. Discontinue potassium supplementation. Monitor potassium level.
[2019-09-28] MEDS: APIXABAN 5 MG TAB PO SCH ×2 (09:31→21:27)
[2019-09-28] MEDS: ASPIRIN 81 MG PO SCH (09:31)
[2019-09-28] MEDS: DIVALPROEX SPRINKLE 125 MG CAP.SPRINK PO SCH (09:32)
[2019-09-28] MEDS: PANTOPRAZOLE 40 MG/10 ML VIAL IVP SCH ×2 (09:33→21:26)
[2019-09-28] MEDS: hydrALAZINE HCL 25 MG TAB PO SCH ×3 (09:33→21:38)
[2019-09-28] MEDS: LISINOPRIL 5 MG TAB PO SCH (09:33)
[2019-09-28] MEDS: FERROUS SULFATE 325 MG TAB PO SCH ×2 (09:34→21:27)
[2019-09-28] MEDS: CEPHALEXIN 500 MG CAP PO SCH ×3 (09:34→21:28)
[2019-09-28] MEDS: SODIUM BICARBONATE TAB 650 MG TAB PO SCH ×2 (09:34→21:27)
[2019-09-28] MEDS: predniSONE 20 MG TAB PO SCH (09:34)
[2019-09-28] MEDS: SERTRALINE 50 MG TAB PO SCH (09:34)
[2019-09-28] MEDS: MULTIVITAMINS, THERA 1 EACH TAB PO SCH ×2 (09:34→12:55)
[2019-09-28] MEDS: PRAVASTATIN SODIUM 20 MG TAB PO SCH (09:34)
[2019-09-28] MEDS: PROPRANOLOL LA 60 MG CAP.SA.24H PO SCH (09:34)
[2019-09-28 11:32] VITALS: BMI 21.9
--- NOTE | 2019-09-28 12:31 | P.PN ---
Subjective Progress Note Date: 09/28/19 Patient was seen for a follow-up. Patient initially stated that her headache has resolved at this time. When I asked her if she has any headache when she woke up, states it was 05/18. I asked if she has a headache now, she said yes. Patient keeps unchanging statement. She appears slightly confused. The headache involves the back of the head and the neck, but then also involves the whole head. Patient does not believe prednisone has helped with her headache so far. No new focal symptoms. Denies fever or chills. Patient had undergone right temporal artery biopsy yesterday, results pending. Patient's WBC count has gone up to 11.9 but that is likely from high-dose steroids. Patient is afebrile temperature 97.8. Objective - Vital Signs Vital signs: Vital Signs Temp 97.7 F 09/28/19 09:05 Pulse 55 L 09/28/19 09:05 Resp 16 09/28/19 09:05 BP 101/57 09/28/19 09:05 Pulse Ox 100 09/28/19 09:05 Intake & Output 09/27/19 09/28/19 09/28/19 18:59 06:59 18:59 Intake Total 860 240 Output Total 3 50 Balance 857 190 Weight 58.1 kg 58.1 kg Intake: IV 500 Oral 360 240 Output: Urine 50 Estimated Blood Loss 3 Other: Voiding Method Toilet Toilet # Voids 2 1 - Exam Patient's mental status, speech and language functions are normal. Neck appears supple, with no definitive rigidity. Muscle strength appears normal. Face is symmetric and tongue protrudes the midline. - Labs CBC & Chem 7: 09/26/19 05:16 09/28/19 06:23 Labs: Abnormal Lab Results - Last 24 Hours (Table) 09/27/19 09/27/19 09/28/19 Range/Units 05:39 20:24 06:23 Potassium 5.3 H (3.5-5.1) mmol/L Chloride 112 H (98-107) mmol/L BUN 81 H (7-17) mg/dL Creatinine 1.50 H (0.52-1.04) mg/dL Glucose 158 H (74-99) mg/dL POC Glucose (mg/dL) 212 H (75-99) mg/dL PTH Intact 153.9 H (14.0-72.0) pg/mL 09/28/19 Range/Units 07:09 Potassium (3.5-5.1) mmol/L Chloride (98-107) mmol/L BUN (7-17) mg/dL Creatinine (0.52-1.04) mg/dL Glucose (74-99) mg/dL POC Glucose (mg/dL) 160 H (75-99) mg/dL PTH Intact (14.0-72.0) pg/mL Assessment and Plan Assessment: * 79-year-old female admitted with new onset headaches, neck and shoulder pain of 4 days duration. Exact cause is uncertain. ESR and CRP are significantly elevated, therefore need to rule out temporal arteritis. Patient's headaches so far has not resolved since being on high-dose steroids, which is unusual with GCA. Patient is status post right temporal artery biopsy. * Acute on chronic renal failure. * Anemia Plan: * Patient currently on prednisone 60 mg daily. So far her headaches have not resolved, which is unusual, as headaches related to temporal arteritis improves rapidly with high-dose steroids. * Patient is status post right temporal artery biopsy on 09/27/2019. Results are pending * Computed tomography scan of the head without contrast showed cerebral atrophy and chronic small vessel ischemia. Old right parietal cortical infarct. We will check carotid Doppler. * Repeated CRP has improved from 83.1 to 42.5. ESR has improved to 54 from 110. * MRA of the brain showed possibility of cerebrovascular disease versus vasculitis. No evidence of aneurysm. * Continue aspirin 81 mg daily for stroke prevention. * Await results of temporal artery biopsy. * Due to persistent headache, we will check spinal fluid to rule out viral meningitis.
[2019-09-28 12:42] LABS: Glucose,Whole Blood 224 mg/dL (75-99)
--- NOTE | 2019-09-28 13:10 | P.PN ---
Subjective Progress Note Date: 09/28/19 Patient seen and examined. Overall doing well. No complaints. Pain is controlled. She still does have a slight headache although it is somewhat improved. No chest pains or shortness of breath Right temporal incision clean, dry and intact. No hematoma. #1 new onset headaches #2 elevated CRP and sed rate, improving #3 rule out temporal arteritis, status post temporal artery biopsy No further intervention per vascular surgery. Patient to continue with medications as ordered by other consultants. We will follow-up with her in the office in about 2 weeks to evaluate her incision and healing. She may shower starting tomorrow. Objective - Vital Signs Vital signs: Vital Signs Temp 97.7 F 09/28/19 09:05 Pulse 54 L 09/28/19 11:30 Resp 16 09/28/19 11:30 BP 129/64 09/28/19 11:30 Pulse Ox 100 09/28/19 11:30 Intake & Output 09/27/19 09/28/19 09/28/19 18:59 06:59 18:59 Intake Total 860 240 Output Total 3 50 Balance 857 190 Weight 58.1 kg 58.1 kg Intake: IV 500 Oral 360 240 Output: Urine 50 Estimated Blood Loss 3 Other: Voiding Method Toilet Toilet # Voids 2 1 - Labs CBC & Chem 7: 09/26/19 05:16 09/28/19 06:23 Labs: Abnormal Lab Results - Last 24 Hours (Table) 09/27/19 09/27/19 09/28/19 Range/Units 05:39 20:24 06:23 Potassium 5.3 H (3.5-5.1) mmol/L Chloride 112 H (98-107) mmol/L BUN 81 H (7-17) mg/dL Creatinine 1.50 H (0.52-1.04) mg/dL Glucose 158 H (74-99) mg/dL POC Glucose (mg/dL) 212 H (75-99) mg/dL PTH Intact 153.9 H (14.0-72.0) pg/mL 09/28/19 09/28/19 Range/Units 07:09 12:41 Potassium (3.5-5.1) mmol/L Chloride (98-107) mmol/L BUN (7-17) mg/dL Creatinine (0.52-1.04) mg/dL Glucose (74-99) mg/dL POC Glucose (mg/dL) 160 H 224 H (75-99) mg/dL PTH Intact (14.0-72.0) pg/mL
--- NOTE | 2019-09-28 14:25 | P.PN ---
Subjective Progress Note Date: 09/28/19 This is a 79-year-old female patient of Dr. Mills with past medical history of chronic kidney disease stage III, atrial fibrillation, chronic hypoxic respiratory failure on home O2, diabetes mellitus type 2, history of TIA, hypertension, seizure disorder without any recent seizure activity, gene ralized anxiety disorder and recurrent depression. Patient complains of sudden onset of weakness to the point that she could hardly walk. She also had pain on the right side of her face congregational area in the back of her head. She denies any black stools, nausea vomiting. Her last hemoglobin the office was 10.6. Patient came into [facility] emergency center for evaluation. Patient was afebrile, blood pressure 87/44, pulse ox 99% on O2, pulse 95, respiratory rate 20, heart rate 103. WBC 12.8, hemoglobin 8.8, BUN 106 and creatinine 2.2 to with baseline of 1.2-1.3. Blood sugar 2193. Lactic acid 1.2 C-reactive protein 83.1, sed rate 110, blood sugar 219, troponin 0.055. Abdominal x-rays showed nonspecific nonobstructive bowel gas pattern. Patient has been seen by neurology with concern for giant cell arteritis and subsequently consult with vascular surgeon with plan for biopsy on Thursday. Patient is also been seen by nephrology for acute kidney injury. Cardiology is following for elevated troponins and echocardiogram has been ordered. 09/25: Nephrology continues to follow the patient with recommendations to continue IV fluids at 80 mL per hour. Hold lisinopril if blood pressures less than 100, check iron saturation, target blood pressure is 110 to 130 and avoid nephrotoxic agents. Echocardiogram reveals EF of 45-50% with mild concentric left ventricular hypertrophy, mild aortic valve sclerosis, mild aortic regurgitation, mild mitral regurgitation, mild tricuspid regurgitation, moderate pulmonary hypertension. Patient continues on prednisone 60 mg oral daily with plan for biopsy on Thursday with vascular surgery. Neurology has ordered MRA of the brain which is been scheduled. Patient is complaining of a dull headache this morning. She is requesting massage therapist which may be able to be arranged on Thursday. Blood pressure readings are now high at 166/71, heart rate 71, she is afebrile, pulse ox 94% on room air. Patient will be resumed on the lower dose of hydralazine 25 mg twice daily. Yesterday, we had discontinued hydralazine 75 mg 3 times daily. Patient has had a bowel movement and occult blood was negative. Hemoglobin is stable at 8.3 and CBC will be rechecked tomorrow. Urine culture is showing gram-negative bacilli. Discussed discharge planning and patient would like to go to [facility] which we will plan to arrange for Thursday. Social work consult added. PT and OT are following. 09/26: Patient has been afebrile, heart rate has been running in the 70s, blood pressure 132/74, pulse ox 100% on 2 L nasal cannula. Patient had one heart rate recorded as 112. Patient is scheduled for MRA of the brain this morning. Valium will be ordered as patient states she is claustrophobic. She continues to have headache and Inderal added. Urine culture is positive for pansensitive E. coli, ceftriaxone will be discontinued and start Keflex. Nephrology is recommending discontinuing IV fluids, continue Lasix 20 mg twice daily oral, sodium bicarb added, check parathyroid hormone, vitamin D, electrophoresis and iron studies. 09/27: Patient is scheduled for temporary artery biopsy today. She will be resumed back on eliquis 5 mg twice daily starting tonight. Repeat lab work reveals chloride 110, CO2 22, BUN 82 and creatinine 1.81. Blood sugars were 300s during the night and this morning 190. Insulins will be adjusted. Patient has been afebrile, blood pressure 108/62, heart rate in the 60s, pulse ox 100% on 2 L nasal cannula. MRA of the brain revealed underlying cerebral vascular disease versus vasculitis. No evident aneurysm. Dr. Bowen has ordered 1 dose of Zometa 4 mg IV today, Aranesp added. Continue Lasix 20 mg twice daily. Angiotensin I converting enzyme, immunofixation, parathyroid hormone intact pending. Vitamin D 25 is 57.2. 09/28: Yesterday, patient underwent right temporal artery biopsy with Dr. Fam. Dr. Bowen has decreased Lasix to once daily, awaiting urine immunofixation. Potassium was discontinued. Repeat lab work this morning his potassium 5.3, chloride 112, BUN 81 and creatinine 1.50. Parathyroid intact is 153.9, angiotensin-converting enzyme 10. Dr. Jones recommends holding on lumbar puncture. Patient is vague regarding complaints of headache. She has been resumed on eliquis as of last evening following the biopsy. [facility] be [facility] floor without telemetry. Anticipate discharge to [facility] tomorrow. Review of Systems Constitutional: Denies chills, denies fatigue, denies fever, Reports poor appetite, Reports weakness, reports headache-dull ache Ears, nose, mouth and throat: Denies dysphagia, Denies nasal congestion, Denies nasal discharge, Denies vertigo Cardiovascular: Denies chest pain, denies dyspnea on exertion, denies shortness of breath, Denies leg edema, Denies lightheadedness Respiratory: Denies cough, denies dyspnea, denies respiratory infections, denies wheezing, Denies cough with sputum, Denies excessive sputum, Denies hemoptysis Gastrointestinal: Denies abdominal pain, Denies constipation, Denies dyspepsia, Denies loss of appetite, Denies nausea, Denies vomiting Genitourinary: Denies dysuria, Denies urgency, Denies urinary frequency Musculoskeletal: Reports gait dysfunction, Reports muscle weakness, Reports myalgias, Denies frequent falls Integumentary: Denies pruritus, Denies rash, Denies wounds Neurological: Reports weakness, Denies aphasia, Denies change in mentation, Denies change in speech, Denies confusion, Denies numbness, Denies seizures, Denies vertigo Psychiatric: Denies anxiety, Denies depression Endocrine: Reports fatigue Objective - Vital Signs Vital signs: Vital Signs Temp 97.7 F 09/28/19 09:05 Pulse 55 L 09/28/19 09:05 Resp 16 09/28/19 09:05 BP 101/57 09/28/19 09:05 Pulse Ox 100 09/28/19 09:05 Intake & Output 09/27/19 09/28/19 09/28/19 18:59 06:59 18:59 Intake Total 860 240 Output Total 3 50 Balance 857 190 Weight 58.1 kg Intake: IV 500 Oral 360 240 Output: Urine 50 Estimated Blood Loss 3 Other: Voiding Method Toilet # Voids 2 1 - Exam Gen: This is a 79-year-old obese female. Patient is resting on the edge of the bed. Friend is at bedside. HEENT: Head is atraumatic, normocephalic. Pupils equal, round. Sclerae is anicteric. NECK: Supple. No nuchal rigidity. No JVD. No lymphadenopathy. No thyromegaly. LUNGS: Diminished bilaterally with rales and scattered rhonchi.. No intercostal retractions. HEART: Regular rate and rhythm. Systolic murmur. ABDOMEN: Soft. Bowel sounds are present. No masses. No tenderness. EXTREMITIES: No pedal edema. No calf tenderness. Dorsalis pedis +2 bilaterally. NEUROLOGICAL: Patient is awake, alert and oriented x3. Cranial nerves 2 through 12 are grossly intact. - Labs CBC & Chem 7: 09/26/19 05:16 09/28/19 06:23 Labs: Abnormal Lab Results - Last 24 Hours (Table) 09/27/19 09/27/19 09/28/19 Range/Units 05:39 20:24 06:23 Potassium 5.3 H (3.5-5.1) mmol/L Chloride 112 H (98-107) mmol/L BUN 81 H (7-17) mg/dL Creatinine 1.50 H (0.52-1.04) mg/dL Glucose 158 H (74-99) mg/dL POC Glucose (mg/dL) 212 H (75-99) mg/dL PTH Intact 153.9 H (14.0-72.0) pg/mL 09/28/19 Range/Units 07:09 Potassium (3.5-5.1) mmol/L Chloride (98-107) mmol/L BUN (7-17) mg/dL Creatinine (0.52-1.04) mg/dL Glucose (74-99) mg/dL POC Glucose (mg/dL) 160 H (75-99) mg/dL PTH Intact (14.0-72.0) pg/mL Assessment and Plan Plan: 1. Headache rule out temporal arteritis. Consult with neurology appreciated patient has been started on prednisone 60 mg daily. Status post biopsy. 2. Elevated troponins. Cardiology on consult. Echocardiogram as above. 3. Chronic anemia of chronic disease with possible GI bleed. Stool for occult blood was negative. Hemoglobin has been stable. 4. Generalized weakness secondary to acute E. coli urinary tract infection. Discontinue ceftriaxone and start Keflex. 5. Diabetes mellitus type 2 uncontrolled with hyperglycemia secondary to steroids. Increase Levemir to 18 units at bedtime, increase NovoLog 8 units with breakfast and lunch and 5 units with supper, continue NovoLog scale before meals and at bedtime. 6. Hypertension. Continue lisinopril 5 mg daily with parameters. Added and lower dose of hydralazine at 25 mg twice daily and continue to hold Lasix. Inderal has been added 7. Atrial fibrillation, paroxysmal. Resume eliquis. 8. Acute kidney injury secondary to hypotension due to recent blood pressure medication increase with Chronic kidney disease stage III. Consult with nephrology appreciated. Discontinue IV fluids, avoid nephrotoxic agents, hold lisinopril for blood pressure less than 120 and goal systolic blood pressure 110- 130. Continue Lasix 20 mg reduce frequency to daily, sodium bicarb added. Electrophoresis and iron studies have been ordered by nephrology. 9. Generalized anxiety disorder and recurrent depression. Continue Xanax 0.25 mg twice daily as needed and Zoloft 50 mg daily. 10. 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 11. Anemia of chronic disease. Monitor hemoglobin. 12. Hypothyroidism. Continue levothyroxine 112 g daily. 13. Hyperlipidemia. Continue pravastatin 20 mg at bedtime. 14. GI prophylaxis and gastroesophageal reflux disease. Protonix twice daily and Carafate. 15. DVT prophylaxis. Hold eliquis. 16. Chronic diastolic heart failure. Discharge plan: [place] under the care of Dr. Mills on Impression and plan of care have been directed as dictated by the signing physician. Nubia Caruso nurse practitioner acting as scribe for signing physician.
[2019-09-28 17:31] LABS: Glucose,Whole Blood 202 mg/dL (75-99)
[2019-09-28] MEDS: DICLOFENAC SODIUM GEL 100 GM TUBE TOPICAL SCH ×3 (17:33→22:33)
[2019-09-28 19:07] LABS: Vitamin D, 1, 25-Dihydroxy 23 pg/mL (20 - 79)
[2019-09-28] MEDS: POTASSIUM CHLORIDE ER 10 MEQ TAB.ER.PRT PO SCH (19:46)
[2019-09-28] MEDS: FUROSEMIDE 20 MG TAB PO SCH (19:46)
[2019-09-28 20:17] LABS: Glucose,Whole Blood 279 mg/dL (75-99)
[2019-09-28] MEDS: MELATONIN 5 MG TABLET PO SCH (21:27)
[2019-09-28] MEDS: INSULIN DETEMIR (LEVEMIR) 100 UNIT/ML SYR SQ SCH (22:34)
[2019-09-29] MEDS: ACETAMINOPHEN TAB 325 MG TAB PO PRN ×2 (05:46→12:55)
[2019-09-29] MEDS: LEVOTHYROXINE 112 MCG TAB PO SCH (05:46)
[2019-09-29 07:09] LABS: Glucose,Whole Blood 120 mg/dL (75-99)
[2019-09-29] MEDS: INSULIN ASPART (NovoLOG) 100 UNIT/ML VIAL SQ SCH ×4 (07:12→12:58)
[2019-09-29] MEDS: DIVALPROEX SPRINKLE 125 MG CAP.SPRINK PO SCH (07:27)
[2019-09-29] MEDS: ASPIRIN 81 MG PO SCH (07:27)
[2019-09-29] MEDS: FERROUS SULFATE 325 MG TAB PO SCH (07:27)
[2019-09-29] MEDS: SODIUM BICARBONATE TAB 650 MG TAB PO SCH (07:27)
[2019-09-29] MEDS: CEPHALEXIN 500 MG CAP PO SCH (07:28)
[2019-09-29] MEDS: predniSONE 20 MG TAB PO SCH (07:28)
[2019-09-29] MEDS: MULTIVITAMINS, THERA 1 EACH TAB PO SCH (07:28)
[2019-09-29] MEDS: hydrALAZINE HCL 25 MG TAB PO SCH (07:28)
[2019-09-29] MEDS: PRAVASTATIN SODIUM 20 MG TAB PO SCH (07:28)
[2019-09-29] MEDS: SERTRALINE 50 MG TAB PO SCH (07:28)
[2019-09-29] MEDS: APIXABAN 5 MG TAB PO SCH (07:28)
[2019-09-29] MEDS: PANTOPRAZOLE 40 MG/10 ML VIAL IVP SCH (07:29)
[2019-09-29] MEDS: PROPRANOLOL LA 60 MG CAP.SA.24H PO SCH (07:29)
[2019-09-29] MEDS: LISINOPRIL 5 MG TAB PO SCH (07:29)
[2019-09-29] MEDS: DICLOFENAC SODIUM GEL 100 GM TUBE TOPICAL SCH ×2 (07:30→13:42)
[2019-09-29 08:45] LABS: Anisocytosis Slight; HCT 27.5 % (34.0-46.0); HGB 8.7 gm/dL (11.4-16.0); Hypochromasia Moderate; MCH 29.7 pg (25.0-35.0); MCHC 31.5 g/dL (31.0-37.0); MCV 94.3 fL (80.0-100.0); Mean Platelet Volume 6.3; Platelet Count 315 k/uL (150-450); RBC 2.92 m/uL (3.80-5.40); RDW 17.5 % (11.5-15.5); WBC 10.1 k/uL (3.8-10.6)
[2019-09-29 08:58] LABS: Calcium 9.5 mg/dL (8.4-10.2); Magnesium 2.2 mg/dL (1.6-2.3); Potassium 4.9 mmol/L (3.5-5.1)
[2019-09-29] MEDS ORDERED: FUROSEMIDE 20 MG TAB PO SCH (09:00)
[2019-09-29 09:18] VITALS: PULSE 54
[2019-09-29 09:30] VITALS: RESP 15
--- NOTE | 2019-09-29 09:40 | P.DS ---
Providers Date of admission: 09/23/19 16:46 Expected date of discharge: 09/29/19 Attending physician: Cirilo Mccrary Consults: 09/23/19 14:43 Consult Physician Routine Consulting Provider: Sánchez Rae Consult Reason/Comments: abnormal ekg Do you want consulting provider notified?: Already Contacted 09/23/19 16:18 Consult Physician Routine Consulting Provider: Juan José Wan Consult Reason/Comments: ro giant cell arteritis Do you want consulting provider notified?: Yes 09/23/19 16:29 Consult Physician Routine Consulting Provider: Soumya Fam Consult Reason/Comments: temporal artery biopsy Do you want consulting provider notified?: Already Contacted 09/23/19 16:38 Consult Physician Routine Consulting Provider: Zeny Caraballo Consult Reason/Comments: sugey Do you want consulting provider notified?: Yes [facility] Course: This is a 79-year-old female patient of Dr. Mills with past medical history of chronic kidney disease stage III, atrial fibrillation, chronic hypoxic respiratory failure on home O2, diabetes mellitus type 2, history of TIA, hypertension, seizure disorder without any recent seizure activity, genera lized anxiety disorder and recurrent depression. Patient complains of sudden onset of weakness to the point that she could hardly walk. She also had pain on the right side of her face buddhism area in the back of her head. She denies any black stools, nausea vomiting. Her last hemoglobin the office was 10.6. Patient came into [facility] emergency center for evaluation. Patient was afebrile, blood pressure 87/44, pulse ox 99% on O2, pulse 95, respiratory rate 20, heart rate 103. WBC 12.8, hemoglobin 8.8, BUN 106 and creatinine 2.2 to with baseline of 1.2-1.3. Blood sugar 2193. Lactic acid 1.2 C-reactive protein 83.1, sed rate 110, blood sugar 219, troponin 0.055. Abdominal x-rays showed nonspecific nonobstructive bowel gas pattern. Patient has been seen by neurology with concern for giant cell arteritis and subsequently consult with vascular surgeon with plan for biopsy on Thursday. Patient is also been seen by nephrology for acute kidney injury. Cardiology is following for elevated troponins and echocardiogram has been ordered. 09/25: Nephrology continues to follow the patient with recommendations to continue IV fluids at 80 mL per hour. Hold lisinopril if blood pressures less than 100, check iron saturation, target blood pressure is 110 to 130 and avoid nephrotoxic agents. Echocardiogram reveals EF of 45-50% with mild concentric left ventricular hypertrophy, mild aortic valve sclerosis, mild aortic regurgitation, mild mitral regurgitation, mild tricuspid regurgitation, moderate pulmonary hypertension. Patient continues on prednisone 60 mg oral daily with plan for biopsy on Thursday with vascular surgery. Neurology has ordered MRA of the brain which is been scheduled. Patient is complaining of a dull headache this morning. She is requesting massage therapist which may be able to be arranged on Thursday. Blood pressure readings are now high at 166/71, heart rate 71, she is afebrile, pulse ox 94% on room air. Patient will be resumed on the lower dose of hydralazine 25 mg twice daily. Yesterday, we had discontinued hydralazine 75 mg 3 times daily. Patient has had a bowel movement and occult blood was negative. Hemoglobin is stable at 8.3 and CBC will be rechecked tomorrow. Urine culture is showing gram-negative bacilli. Discussed discharge planning and patient would like to go to [facility] which we will plan to arrange for Thursday. Social work consult added. PT and OT are following. 09/26: Patient has been afebrile, heart rate has been running in the 70s, blood pressure 132/74, pulse ox 100% on 2 L nasal cannula. Patient had one heart rate recorded as 112. Patient is scheduled for MRA of the brain this morning. Valium will be ordered as patient states she is claustrophobic. She continues to have headache and Inderal added. Urine culture is positive for pansensitive E. coli, ceftriaxone will be discontinued and start Keflex. Nephrology is recommending discontinuing IV fluids, continue Lasix 20 mg twice daily oral, sodium bicarb added, check parathyroid hormone, vitamin D, electrophoresis and iron studies. 09/27: Patient is scheduled for temporary artery biopsy today. She will be resumed back on eliquis 5 mg twice daily starting tonight. Repeat lab work reveals chloride 110, CO2 22, BUN 82 and creatinine 1.81. Blood sugars were 300s during the night and this morning 190. Insulins will be adjusted. Patient has been afebrile, blood pressure 108/62, heart rate in the 60s, pulse ox 100% on 2 L nasal cannula. MRA of the brain revealed underlying cerebral vascular disease versus vasculitis. No evident aneurysm. Dr. Bowen has ordered 1 dose of Zometa 4 mg IV today, Aranesp added. Continue Lasix 20 mg twice daily. Angiotensin I converting enzyme, immunofixation, parathyroid hormone intact pending. Vitamin D 25 is 57.2. 09/28: Yesterday, patient underwent right temporal artery biopsy with Dr. Fam. Dr. Bowen has decreased Lasix to once daily, awaiting urine immunofixation. Potassium was discontinued. Repeat lab work this morning his potassium 5.3, chloride 112, BUN 81 and creatinine 1.50. Parathyroid intact is 153.9, angiotensin-converting enzyme 10. Dr. Jones recommends holding on lumbar puncture. Patient is vague regarding complaints of headache. She has been resumed on eliquis as of last evening following the biopsy. Patient will be transferred to the [facility] floor without telemetry. Anticipate discharge to [facility] tomorrow. 09/29: Patient has been afebrile, blood pressure 120/67, heart rate 54, pulse ox 100% on 2 L nasal cannula. Repeat lab work this morning reveals hemoglobin of 8.7, BUN 77 and creatinine 1.6, potassium 4.9. Dr. Bowen's recommended continuing Lasix at 20 mg daily. Biopsy is negative for arteritis and prednisone will be tapered for occipital neuralgia. Discussed with family at the bedside in over the phone and they are very adamant the patient will need to be discharged by next Thursday for [facility]. Patient will be discharged to [facility] today in stable condition. Discharge diagnoses: 1. Headache secondary to occipital neuralgia, temporal arteritis ruled out. 2. Elevated troponins, acute coronary syndrome ruled out. 3. Chronic anemia of chronic disease. 4. Generalized weakness secondary to acute E. coli urinary tract infection. 5. Diabetes mellitus type 2 uncontrolled with hyperglycemia secondary to steroids. 6. Hypertension. 7. Atrial fibrillation, paroxysmal. 8. Acute kidney injury secondary to hypotension due to recent blood pressure medication increase with Chronic kidney disease stage III. 9. Generalized anxiety disorder and recurrent depression. 10. 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 11. Anemia of chronic disease. 12. Hypothyroidism. 13. Hyperlipidemia. 14. Chronic diastolic heart failure. Discharge plan: [place] under the care of Dr. Mills Impression and plan of care have been directed as dictated by the signing physician. Nubia Caruso nurse practitioner acting as scribe for signing physician. Patient Condition at Discharge: Good Plan - Discharge Summary Discharge Rx Participant: No New Discharge Prescriptions: New hydrALAZINE HCL [Apresoline] 25 mg PO BID #0 tab Aspirin 81 mg PO DAILY chew Propranolol LA [Inderal LA] 60 mg PO DAILY #0 cap.sa.24h Furosemide [Lasix] 20 mg PO DAILY tab Insulin Detemir (Levemir) [Levemir] 18 unit SQ HS syr INSULIN ASPART (NovoLOG) [NovoLOG (formulary)] 8 unit SQ 0730,1230 vial INSULIN ASPART (NovoLOG) [NovoLOG (formulary)] 5 unit SQ AC-SUPPER vial INSULIN ASPART (NovoLOG) [NovoLOG (formulary)] 0 unit SQ ACHS vial Sennosides-Docusate Sodium [Senokot-S] 2 each PO DAILY PRN tab PRN Reason: Constipation Sodium Bicarbonate Tab 650 mg PO BID tab Diclofenac Sodium Gel [Voltaren Gel] 4 gm TOPICAL QID tube predniSONE 20 mg PO DAILY #30 tab busPIRone HCl [Buspar] 10 mg PO BID #60 tab Epoetin Stevan [Procrit] 10,000 unit IM Q7D #1 vial Continue Pravastatin Sodium [Pravachol] 20 mg PO DAILY Apixaban [Eliquis] 5 mg PO BID Budesonide 1 mg INHALATION RT-BID PRN PRN Reason: Shortness Of Breath Divalproex Sodium [Depakote Sprinkle] 500 mg PO DAILY Ferrous Sulfate [Iron (65 MG Elemental)] 325 mg PO BID Levothyroxine Sodium 112 mcg PO DAILY Lisinopril [Prinivil] 5 mg PO DAILY Magnesium Oxide 400 mg PO DAILY Melatonin 10 mg PO HS Sertraline [Zoloft] 50 mg PO DAILY Sucralfate [Carafate] 1 gm PO ACHS PRN PRN Reason: Gi Upset Albuterol Nebulized [Ventolin Nebulized] 2.5 mg INHALATION RT-Q4H PRN PRN Reason: Shortness Of Breath Acetaminophen Tab [Tylenol] 650 mg PO Q6H PRN PRN Reason: Pain Multivitamins, Thera [Multivitamin (formulary)] 1 tab PO DAILY [place]-3 Fatty Acids [[place]-3] 1,000 mg PO DAILY Cyanocobalamin (Vitamin B-12) [Vitamin B-12] 1,000 mcg PO DAILY Discontinued Insulin Glargine [Lantus] See Protocol SQ HS Insulin Lispro [humaLOG Kwikpen] See Protocol SQ AC-TID Furosemide [Lasix] 20 mg PO BID@0900,1600 Discharge Medication List Pravastatin Sodium [Pravachol] 20 mg PO DAILY 04/23/14 [History] Acetaminophen Tab [Tylenol] 650 mg PO Q6H PRN 05/20/19 [History] Albuterol Nebulized [Ventolin Nebulized] 2.5 mg INHALATION RT-Q4H PRN 05/20/19 [History] Apixaban [Eliquis] 5 mg PO BID 05/20/19 [History] Budesonide 1 mg INHALATION RT-BID PRN 05/20/19 [History] Divalproex Sodium [Depakote Sprinkle] 500 mg PO DAILY 05/20/19 [History] Ferrous Sulfate [Iron (65 MG Elemental)] 325 mg PO BID 05/20/19 [History] Levothyroxine Sodium 112 mcg PO DAILY 05/20/19 [History] Lisinopril [Prinivil] 5 mg PO DAILY 05/20/19 [History] Magnesium Oxide 400 mg PO DAILY 05/20/19 [History] Melatonin 10 mg PO HS 05/20/19 [History] Sertraline [Zoloft] 50 mg PO DAILY 05/20/19 [History] Sucralfate [Carafate] 1 gm PO ACHS PRN 05/20/19 [History] Multivitamins, Thera [Multivitamin (formulary)] 1 tab PO DAILY 09/23/19 [History] [place]-3 Fatty Acids [[place]-3] 1,000 mg PO DAILY 09/23/19 [History] Cyanocobalamin (Vitamin B-12) [Vitamin B-12] 1,000 mcg PO DAILY 09/26/19 [History] Aspirin 81 mg PO DAILY chew 09/29/19 [Rx] Diclofenac Sodium Gel [Voltaren Gel] 4 gm TOPICAL QID tube 09/29/19 [Rx] Epoetin Stevan [Procrit] 10,000 unit IM Q7D #1 vial 09/29/19 [Rx] Furosemide [Lasix] 20 mg PO DAILY tab 09/29/19 [Rx] INSULIN ASPART (NovoLOG) [NovoLOG (formulary)] 0 unit SQ ACHS vial 09/29/19 [Rx] INSULIN ASPART (NovoLOG) [NovoLOG (formulary)] 5 unit SQ AC-SUPPER vial 09/29/19 [Rx] INSULIN ASPART (NovoLOG) [NovoLOG (formulary)] 8 unit SQ 0730,1230 vial 09/29/19 [Rx] Insulin Detemir (Levemir) [Levemir] 18 unit SQ HS syr 09/29/19 [Rx] Propranolol LA [Inderal LA] 60 mg PO DAILY #0 cap.sa.24h 09/29/19 [Rx] Sennosides-Docusate Sodium [Senokot-S] 2 each PO DAILY PRN tab 09/29/19 [Rx] Sodium Bicarbonate Tab 650 mg PO BID tab 09/29/19 [Rx] busPIRone HCl [Buspar] 10 mg PO BID #60 tab 09/29/19 [Rx] hydrALAZINE HCL [Apresoline] 25 mg PO BID #0 tab 09/29/19 [Rx] predniSONE 20 mg PO DAILY #30 tab 09/29/19 [Rx] Follow up Appointment(s)/Referral(s): Eleazar Mills MD [Primary Care Provider] - 1 Week (at [facility]) Chema Bowen DO [STAFF PHYSICIAN] - 1 Week Patient Instructions/Handouts: Heart Failure (DC), Acute Kidney Injury (DC), Type 2 Diabetes in Adults: New Diagnosis (DC), Temporal Arteritis (DC) Activity/Diet/Wound Care/Special Instructions: [facility]
--- NOTE | 2019-09-29 10:56 | P.PN ---
Subjective Patient is seen in follow-up for acute kidney injury on chronic kidney disease. Patient is chronic kidney disease stage III with baseline creatinine in the range of 1.3-2. Renal function is fairly stable. Creatinine 1.6 today. Currently resting in bed. Underwent temporal artery biopsy on September 27. Admits to good urine output. No vomiting or diarrhea. Vital signs are stable. General: The patient appeared well nourished and normally developed. HEENT: Head exam is unremarkable. Neck is without jugular venous distension. LUNGS: Lungs are clear to auscultation and percussion. Breath sounds decreased. HEART: Rate and Rhythm are regular. First and second heart sounds normal. No murmurs, rubs or gallops. ABDOMEN: Abdominal exam reveals normal bowel sounds. Non-tender and non- distended. No evidence of peritonitis. EXTREMITITES: No clubbing, cyanosis, or edema. Objective - Vital Signs Vital signs: Vital Signs Temp 97.5 F L 09/29/19 04:45 Pulse 54 L 09/29/19 09:16 Resp 15 09/29/19 09:18 BP 128/67 09/29/19 09:16 Pulse Ox 100 09/29/19 09:16 Intake & Output 09/28/19 09/29/19 09/29/19 18:59 06:59 18:59 Intake Total 240 200 Output Total 250 Balance -10 200 Weight 58.1 kg Intake: Oral 240 200 Output: Urine 250 Other: Voiding Method Toilet Toilet Toilet # Voids 1 - Labs CBC & Chem 7: 09/29/19 08:12 09/29/19 08:12 Labs: Abnormal Lab Results - Last 24 Hours (Table) 09/28/19 09/28/19 09/28/19 Range/Units 12:41 17:20 20:12 RBC (3.80-5.40) m/uL Hgb (11.4-16.0) gm/dL Hct (34.0-46.0) % RDW (11.5-15.5) % Chloride (98-107) mmol/L BUN (7-17) mg/dL Creatinine (0.52-1.04) mg/dL Glucose (74-99) mg/dL POC Glucose (mg/dL) 224 H 202 H 279 H (75-99) mg/dL 09/29/19 09/29/19 09/29/19 Range/Units 06:59 08:12 08:12 RBC 2.92 L (3.80-5.40) m/uL Hgb 8.7 L (11.4-16.0) gm/dL Hct 27.5 L (34.0-46.0) % RDW 17.5 H (11.5-15.5) % Chloride 111 H (98-107) mmol/L BUN 77 H (7-17) mg/dL Creatinine 1.60 H (0.52-1.04) mg/dL Glucose 132 H (74-99) mg/dL POC Glucose (mg/dL) 120 H (75-99) mg/dL Assessment and Plan Plan: Assessment: 1. Acute kidney injury mostly prerenal secondary to hypotension. Creatinine was 2.2 on admission and is fairly stable at1.6 today. 2. Chronic kidney disease stage III secondary to nephrosclerosis/diabetic kidn ey disease with baseline creatinine in the range of 1.3-2. 3. History of hypercalcemia. 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 Parathyroid nuclear scan revealed no adenoma. She was unable to afford Sensipar. Maintained on loop diuretic. Calcium level better at 9.5 today. Vitamin D level 57.2. PTH elevated at 153.9. NICOLA 10. 4. Diabetes mellitus. 5. Headache. Concern for temporal arteritis. Status post temporal artery biopsy on September 27. 6. Anemia of chronic kidney disease. Iron replete. Maintained on Aranesp. 7. Hypertension with chronic kidney disease. Controlled. 8. Metabolic acidosis secondary to acute kidney injury. Maintained on oral sodium bicarbonate. Better. Plan: Maintain Lasix 20 mg once daily. Status post Zometa on September 27. Follow-up urine immunofixation. Repeat electrolytes in the morning. Hold antihypertensives for systolic blood pressure less than 120. Discontinued potassium supplementation.
[2019-09-29 12:28] LABS: Glucose,Whole Blood 148 mg/dL (75-99)
[2019-09-29 13:11] VITALS: BP 112/58; TEMP 96.4
== END 2019-09-29 14:31 | DRG 516 ==
LOC: EC 12:53 → 3SCARD 16:46 → 4MS4W 09-28 20:20
PROVIDERS: ADMIT Internal Medicine; ATTEND Internal Medicine
PROC: 03BS0ZX Excision of Right Temporal Artery, Open Approach, Diagnostic (ICD-10-PCS; principal; 2019-09-27 10:30)
DX: M54.81 Occipital neuralgia (principal); E87.1 Hypo-osmolality and hyponatremia; E87.2 Acidosis; F33.9 Major depressive disorder, recurrent, unspecified; I13.0 Hypertensive heart and chronic kidney disease with heart failure and stage 1 through stage 4 chronic kidney disease, or unspecified chronic kidney disease; I50.32 Chronic diastolic (congestive) heart failure; J96.11 Chronic respiratory failure with hypoxia; N17.9 Acute kidney failure, unspecified; N39.0 Urinary tract infection, site not specified; B96.20 Unspecified Escherichia coli [E. coli] as the cause of diseases classified elsewhere; D63.1 Anemia in chronic kidney disease; E03.9 Hypothyroidism, unspecified; E11.22 Type 2 diabetes mellitus with diabetic chronic kidney disease; E11.65 Type 2 diabetes mellitus with hyperglycemia; T38.0X5A Adverse effect of glucocorticoids and synthetic analogues, initial encounter; E78.5 Hyperlipidemia, unspecified; E83.52 Hypercalcemia; E86.0 Dehydration; F40.240 Claustrophobia; F41.1 Generalized anxiety disorder; G40.909 Epilepsy, unspecified, not intractable, without status epilepticus; I45.10 Unspecified right bundle-branch block; I48.0 Paroxysmal atrial fibrillation; I27.20 Pulmonary hypertension, unspecified; K21.9 Gastro-esophageal reflux disease without esophagitis; K59.00 Constipation, unspecified; M79.7 Fibromyalgia; N18.3 Chronic kidney disease, stage 3 (moderate); Z79.01 Long term (current) use of anticoagulants; Z79.4 Long term (current) use of insulin; Z79.890 Hormone replacement therapy; Z79.899 Other long term (current) drug therapy; Z80.8 Family history of malignant neoplasm of other organs or systems; Z82.49 Family history of ischemic heart disease and other diseases of the circulatory system; Z86.73 Personal history of transient ischemic attack (TIA), and cerebral infarction without residual deficits; Z90.710 Acquired absence of both cervix and uterus; Z99.81 Dependence on supplemental oxygen; I95.2 Hypotension due to drugs; T46.5X5A Adverse effect of other antihypertensive drugs, initial encounter; I08.3 Combined rheumatic disorders of mitral, aortic and tricuspid valves
CPT/HCPCS: 36415; 70450; 70544; 71046; 74022; 80048; 80053; 81001; 82164; 82272; 82306; 82570; 82652; 82728; 83540; 83550; 83605; 83735; 83970; 84100; 84156; 84484; 85025; 85027; 85610; 85652; 85730; 86140; 86335; 87077; 87086; 87186; 88305; 93005; 93306; 93880; 96361; 96374; 99285

== ENCOUNTER 2019-10-24 11:02 | Inpatient (IN) | payer MEDICARE, OTHER ==
--- NOTE | 2019-10-24 12:09 | ED ---
General Adult HPI - General Chief complaint: Recheck/Abnormal Lab/Rx Stated complaint: Abd Pain Time Seen by Provider: 10/24/19 11:15 Source: EMS, RN notes reviewed, old records reviewed Limitations: physical limitation - History of Present Illness Initial comments: This is a 79-year-old female who comes in from home because Dr. Mills his been trying to take the fluid off of her for her quite a while and it is not been working so he wanted to come in to get IV Lasix. Patient states when she is at home she has been short of breath but currently lying in bed she is not. Pat ient denies any chest pain or palpitations. Patient does complain of her abdomen being much more distended than normal and she believes this is where all the fluid is. Patient denies any leg swelling. Patient denies any recent fever chills or cough. Patient denies any palpitations. Patient denies any headache patient denies any numbness weakness. Patient denies any lightheadedness or dizziness. - Related Data Home Medications Medication Instructions Recorded Confirmed Pravastatin Sodium [Pravachol] 20 mg PO DAILY@1700 04/23/14 10/24/19 Acetaminophen Tab [Tylenol] 650 mg PO Q6H PRN 05/20/19 10/24/19 Albuterol Nebulized [Ventolin 2.5 mg INHALATION RT-Q4H PRN 05/20/19 10/24/19 Nebulized] Apixaban [Eliquis] 5 mg PO BID@0800,1700 05/20/19 10/24/19 Budesonide 1 mg INHALATION RT-BID PRN 05/20/19 10/24/19 Divalproex Sodium [Depakote 500 mg PO DAILY@0805/20/19 10/24/19 Sprinkle] Ferrous Sulfate [Iron (65 MG 325 mg PO BID@0800,1700 05/20/19 10/24/19 Elemental)] Levothyroxine Sodium 112 mcg PO DAILY@0600 05/20/19 10/24/19 Lisinopril [Prinivil] 5 mg PO DAILY@0800 05/20/19 10/24/19 Magnesium Oxide 400 mg PO DAILY@1700 05/20/19 10/24/19 Melatonin 10 mg PO HS@2100 05/20/19 10/24/19 Sertraline [Zoloft] 50 mg PO DAILY@0800 05/20/19 10/24/19 Sucralfate [Carafate] 1 gm PO ACHS PRN 05/20/19 10/24/19 Multivitamins, Thera [Multivitamin 1 tab PO DAILY@1700 09/23/19 10/24/19 (formulary)] Cyanocobalamin (Vitamin B-12) 1,000 mcg PO DAILY@1700 09/26/19 10/24/19 [Vitamin B-12] Aspirin 81 mg PO DAILY@1700 10/24/19 10/24/19 Epoetin Stevan [Procrit] 10,000 unit IM FR 10/24/19 10/24/19 Fludrocortisone Acetate 0.1 mg PO BID@0800,1700 10/24/19 10/24/19 Furosemide [Lasix] 40 mg PO BID@0600,1400 10/24/19 10/24/19 Gabapentin [Neurontin] 100 mg PO BID@0800,2100 10/24/19 10/24/19 Hydrocortisone 10 mg PO DAILY@0800 10/24/19 10/24/19 Hydrocortisone [Cortef] 5 mg PO HS@2130 10/24/19 10/24/19 INSULIN ASPART (NovoLOG) [NovoLOG 8 unit SQ BID@0700,1100 10/24/19 10/24/19 (formulary)] INSULIN ASPART (NovoLOG) [NovoLOG See Protocol SQ ACHS 10/24/19 10/24/19 (formulary)] Insulin Detemir (Levemir) [Levemir] 18 unit SQ HS@2100 10/24/19 10/24/19 Metolazone [Zaroxolyn] 2.5 mg PO DAILY@1400 10/24/19 10/24/19 Propranolol LA [Inderal LA] 60 mg PO DAILY@0800 10/24/19 10/24/19 Sennosides-Docusate Sodium 2 tab PO DAILY PRN 10/24/19 10/24/19 [Senokot-S] Sodium Bicarbonate Tab 650 mg PO BID@0800,1700 10/24/19 10/24/19 Spironolactone [Aldactone] 25 mg PO DAILY@0800 10/24/19 10/24/19 busPIRone HCl [Buspar] 10 mg PO BID@0800,1700 10/24/19 10/24/19 hydrALAZINE HCL [Apresoline] 25 mg PO BID@0800,1700 10/24/19 10/24/19 Previous Rx's Medication Instructions Recorded Diclofenac Sodium Gel [Voltaren 4 gm TOPICAL QID tube 09/29/19 Gel] INSULIN ASPART (NovoLOG) [NovoLOG 5 unit SQ AC-SUPPER vial 09/29/19 (formulary)] Allergies Allergy/AdvReac Type Severity Reaction Status Date / Time doxycycline calcium Allergy Anaphylaxis Verified 10/24/19 13:20 [From Vibramycin] doxycycline hyclate Allergy Anaphylaxis Verified 10/24/19 13:20 [From Vibramycin] doxycycline monohydrate Allergy Anaphylaxis Verified 10/24/19 13:20 [From Vibramycin] erythromycin base Allergy Anaphylaxis Verified 10/24/19 13:20 Iodinated Contrast Media Allergy Anaphylaxis Verified 10/24/19 13:20 [Iodinated Contrast Media - IV Dye] Review of Systems ROS Statement: Those systems with pertinent positive or pertinent negative responses have been documented in the HPI. ROS Other: All systems not noted in ROS Statement are negative. Past Medical History Past Medical History: Heart Failure, CVA/TIA, Diabetes Mellitus, Hypertension, Renal Disease Additional Past Medical History / Comment(s): TIAs 4 with previous TIA 18 months ago. Motor seizures left leg anemic, irregular heart beat; murmur, pneum History of Any Multi-Drug Resistant Organisms: None Reported Past Surgical History: Appendectomy, Hysterectomy, Orthopedic Surgery Additional Past Surgical History / Comment(s): left knee arthroscopy, cyst removal (pilonidal cyst) Past Anesthesia/Blood Transfusion Reactions: No Reported Reaction Past Psychological History: Anxiety Smoking Status: Never smoker Past Alcohol Use History: None Reported Past Drug Use History: None Reported - Past Family History Brother(s) Additional Family Medical History / Comment(s): The patient has 2 brothers and both are . One from aspiration pneumonia with history of stomach cancer. A second brother from melanoma. Father Family Medical History: Congestive Heart Failure (CHF) Additional Family Medical History / Comment(s): Father at age 65 from heart failure. Mother Family Medical History: Congestive Heart Failure (CHF) Additional Family Medical History / Comment(s): Mother at age 92 from heart failure and had previous history of coronary artery disease with several MIs. Sister(s) Family Medical History: Cancer Additional Family Medical History / Comment(s): The patient has 2 sisters. One is stage IV breast cancer survivor and history of diverticulitis. Second sister has many medical problems. Son(s) Family Medical History: Hypertension General Exam - General Exam Comments Initial Comments: GENERAL: Patient is well-developed and well-nourished. Patient is nontoxic and well- hydrated and is in mild distress. ENT: Neck is soft and supple. No significant lymphadenopathy is noted. Oropharynx is clear. Moist mucous membranes. Neck has full range of motion without eliciting any pain. EYES: The sclera were anicteric and conjunctiva were pink and moist. Extraocular movements were intact and pupils were equal round and reactive to light. Eyelids were unremarkable. PULMONARY: Bilateral bases were diminished with slight crackles. CARDIOVASCULAR: There is a regular rate and rhythm without any murmurs gallops or rubs. ABDOMEN: Soft and nontender with normal bowel sounds. SKIN: Skin is clear with no lesions or rashes and otherwise unremarkable. NEUROLOGIC: Patient is alert and oriented x3. Cranial nerves II through XII are grossly intact. Motor and sensory are also intact. Normal speech, volume and content. Symmetrical smile. MUSCULOSKELETAL: Normal extremities with adequate strength and full range of motion. LYMPHATICS: No significant lymphadenopathy is noted PSYCHIATRIC: Normal psychiatric evaluation. Limitations: physical limitation Course Vital Signs 10/24/19 10/24/19 10/24/19 11:12 13:43 14:37 Temperature 97.5 F L Pulse Rate 61 66 68 Respiratory 19 18 18 Rate Blood Pressure 155/89 110/65 85/65 O2 Sat by Pulse 97 90 L 99 Oximetry 10/24/19 10/24/19 14:41 15:05 Temperature Pulse Rate 66 65 Respiratory 18 18 Rate Blood Pressure 113/62 115/59 O2 Sat by Pulse 98 98 Oximetry Medical Decision Making - Medical Decision Making EKG shows sinus bradycardia 55 bpm [place] interval is 134 QRS 138 QT interval is 526 QTC is 503. Patient's EKG shows a right bundle branch block. T-wave inversions in leads V1 and V2 V3 as well as biphasic T waves in V4 through V6 and T-wave inversions in 1 and aVL. X-ray of the chest shows bilateral pleural effusions and signs of congestive heart failure. I started the patient on a Lasix drip per Dr. Sheets's directions. I spoke with Dr. Gallardo she agreed to admit the patient admitted the patient and wrote admitting orders. I also spoke with Dr. Mills prior to this patient's arrival. Patient has short episode of hypotension in the emergency department a repeat EKG was done that time it shows a normal sinus rhythm at 65 bpm [place] interval is on a 36 dresses under 44 Q-T intervals 474 QTC is 492. Patient's EKG shows no ST segment elevation or depression. Patient has the same T-wave abnormality she did on the previous EKG. - Lab Data Result diagrams: 10/24/19 12:10/24/19 12: Lab Results 10/24/19 10/24/19 10/24/19 Range/Units 12:19 12: 12: WBC 4.4 (3.8-10.6) k/uL RBC 3.45 L (3.80-5.40) m/uL Hgb 10.4 L (11.4-16.0) gm/dL Hct 35.3 (34.0-46.0) % MCV 102.5 H (80.0-100.0) fL MCH 30.2 (25.0-35.0) pg MCHC 29.5 L (31.0-37.0) g/dL RDW 19.3 H (11.5-15.5) % Plt Count 238 (150-450) k/uL Neutrophils % 75 % Lymphocytes % 12 % Monocytes % 8 % Eosinophils % 4 % Basophils % 0 % Neutrophils # 3.3 (1.3-7.7) k/uL Lymphocytes # 0.5 L (1.0-4.8) k/uL Monocytes # 0.4 (0-1.0) k/uL Eosinophils # 0.2 (0-0.7) k/uL Basophils # 0.0 (0-0.2) k/uL Hypochromasia Marked Anisocytosis Slight Macrocytosis Moderate PT (9.0-12.0) sec INR (<1.2) APTT (22.0-30.0) sec Sodium 144 (137-145) mmol/L Potassium 4.4 (3.5-5.1) mmol/L Chloride 94 L (98-107) mmol/L Carbon Dioxide 40 H (22-30) mmol/L Anion Gap 10 mmol/L BUN 71 H (7-17) mg/dL Creatinine 1.38 H (0.52-1.04) mg/dL Est GFR (CKD-EPI)AfAm 42 (>60 ml/min/1.73 sqM) Est GFR (CKD-EPI)NonAf 37 (>60 ml/min/1.73 sqM) Glucose 122 H (74-99) mg/dL Calcium 9.4 (8.4-10.2) mg/dL Magnesium 2.8 H (1.6-2.3) mg/dL Total Bilirubin 0.8 (0.2-1.3) mg/dL AST 24 (14-36) U/L ALT 10 (4-34) U/L Alkaline Phosphatase 52 (38-126) U/L Troponin I (0.000-0.034) ng/mL NT-Pro-B Natriuret Pep 87031 pg/mL Total Protein 6.7 (6.3-8.2) g/dL Albumin 4.0 (3.5-5.0) g/dL Urine Color Urine Appearance (Clear) Urine pH (5.0-8.0) Ur Specific [place] (1.001-1.035) Urine Protein (Negative) Urine Glucose (UA) (Negative) Urine Ketones (Negative) Urine Blood (Negative) Urine Nitrite (Negative) Urine Bilirubin (Negative) Urine Urobilinogen (<2.0) mg/dL Ur Leukocyte Esterase (Negative) Urine RBC (0-5) /hpf Urine WBC (0-5) /hpf Ur Squamous Epith Cells (0-4) /hpf Hyaline Casts (0-2) /lpf 10/24/19 10/24/19 10/24/19 Range/Units 12:19 12: 12:19 WBC (3.8-10.6) k/uL RBC (3.80-5.40) m/uL Hgb (11.4-16.0) gm/dL Hct (34.0-46.0) % MCV (80.0-100.0) fL MCH (25.0-35.0) pg MCHC (31.0-37.0) g/dL RDW (11.5-15.5) % Plt Count (150-450) k/uL Neutrophils % % Lymphocytes % % Monocytes % % Eosinophils % % Basophils % % Neutrophils # (1.3-7.7) k/uL Lymphocytes # (1.0-4.8) k/uL Monocytes # (0-1.0) k/uL Eosinophils # (0-0.7) k/uL Basophils # (0-0.2) k/uL Hypochromasia Anisocytosis Macrocytosis PT 10.6 (9.0-12.0) sec INR 1.0 (<1.2) APTT 24.8 (22.0-30.0) sec Sodium (137-145) mmol/L Potassium (3.5-5.1) mmol/L Chloride (98-107) mmol/L Carbon Dioxide (22-30) mmol/L Anion Gap mmol/L BUN (7-17) mg/dL Creatinine (0.52-1.04) mg/dL Est GFR (CKD-EPI)AfAm (>60 ml/min/1.73 sqM) Est GFR (CKD-EPI)NonAf (>60 ml/min/1.73 sqM) Glucose (74-99) mg/dL Calcium (8.4-10.2) mg/dL Magnesium (1.6-2.3) mg/dL Total Bilirubin (0.2-1.3) mg/dL AST (14-36) U/L ALT (4-34) U/L Alkaline Phosphatase (38-126) U/L Troponin I 0.056 H* (0.000-0.034) ng/mL NT-Pro-B Natriuret Pep pg/mL Total Protein (6.3-8.2) g/dL Albumin (3.5-5.0) g/dL Urine Color Light Yellow Urine Appearance Clear (Clear) Urine pH 7.5 (5.0-8.0) Ur Specific [place] 1.009 (1.001-1.035) Urine Protein Negative (Negative) Urine Glucose (UA) Negative (Negative) Urine Ketones Negative (Negative) Urine Blood Negative (Negative) Urine Nitrite Negative (Negative) Urine Bilirubin Negative (Negative) Urine Urobilinogen <2.0 (<2.0) mg/dL Ur Leukocyte Esterase Trace H (Negative) Urine RBC 1 (0-5) /hpf Urine WBC 3 (0-5) /hpf Ur Squamous Epith Cells <1 (0-4) /hpf Hyaline Casts 1 (0-2) /lpf Disposition Clinical Impression: Acute pulmonary edema Disposition: ADMITTED IP TO THIS HOSP Time of Disposition: 12:55
[2019-10-24] MEDS ORDERED: FUROSEMIDE 100 MG in SODIUM CHLORIDE 0.9% 90 ML IV SCH (12:15)
[2019-10-24] MEDS ORDERED: ONDANSETRON 4 MG/2 ML VIAL IVP STA (12:27)
[2019-10-24 12:44] LABS: Anisocytosis Slight; Basophils % (A) 0 %; Eosinophils # (A) 0.2 k/uL (0-0.7); Eosinophils % (A) 4 %; HCT 35.3 % (34.0-46.0); HGB 10.4 gm/dL (11.4-16.0); Hypochromasia Marked; Lymphocytes # (A) 0.5 k/uL (1.0-4.8); Lymphocytes % (A) 12 %; MCH 30.2 pg (25.0-35.0); MCHC 29.5 g/dL (31.0-37.0); MCV 102.5 fL (80.0-100.0); Macrocytosis Moderate; Mean Platelet Volume 8.1; Monocytes # (A) 0.4 k/uL (0-1.0); Monocytes % (A) 8 %; Neutrophils # (A) 3.3 k/uL (1.3-7.7); Neutrophils % (A) 75 %; Platelet Count 238 k/uL (150-450); RBC 3.45 m/uL (3.80-5.40); RDW 19.3 % (11.5-15.5); WBC 4.4 k/uL (3.8-10.6)
[2019-10-24 12:46] LABS: Partial Thromboplastin Time 24.8 sec (22.0-30.0); Prothrombin Time 10.6 sec (9.0-12.0)
--- NOTE | 2019-10-24 12:46 | XR ---
EXAMINATION TYPE: XR chest 2V DATE OF EXAM: 10/24/2019 COMPARISON: 09/25/2019 HISTORY: Difficulty breathing TECHNIQUE: Frontal and lateral views of the chest are obtained. FINDINGS: There are increasing pleural effusions, small to moderate on the right and small on the le ft with associated bibasilar airspace disease. Cardiomediastinal silhouette is partially obscured but appears enlarged. No cephalization. Right minor fissural fluid is seen. Diffuse osseous demineraliza tion. Suboptimal evaluation of the thoracic spine. IMPRESSION: Worsening bilateral pleural effusions (moderate on the right and small on the left) cons ider congestive heart failure.
[2019-10-24 12:50] LABS: Appearance,Urine Clear (Clear); Bilirubin,Urine Negative (Negative); Blood,Urine Negative (Negative); Color,Urine Light Yellow; Glucose,Urine (UA) Negative (Negative); Hyaline Casts,Urine 1 /lpf (0-2); Ketones,Urine Negative (Negative); Leukocyte Esterase,Urine Trace (Negative); Nitrite,Urine Negative (Negative); PH, Urine 7.5 (5.0-8.0); Protein,Urine Negative (Negative); RBC,Urine 1 /hpf (0-5); Specific Gravity,Urine 1.009 (1.001-1.035); Squamous Epithelial Cell,Urine <1 /hpf (0-4); Urobilinogen,Urine <2.0 mg/dL (<2.0); WBC,Urine 3 /hpf (0-5)
[2019-10-24 13:08] LABS: Calcium 9.4 mg/dL (8.4-10.2); Magnesium 2.8 mg/dL (1.6-2.3); Potassium 4.4 mmol/L (3.5-5.1); Total Bilirubin 0.8 mg/dL (0.2-1.3); Total Protein 6.7 g/dL (6.3-8.2)
--- NOTE | 2019-10-24 13:28 | P.HPIM ---
History of Present Illness H&P Date: 10/24/19 This is a 79-year-old female patient of Dr. Mills with past medical history of chronic kidney disease stage III, atrial fibrillation, chronic hypoxic respiratory failure on 2 L home O2, diabetes mellitus type 2, history of TIA, hypertension, seizure disorder without any recent seizure activity, generalized anxiety disorder and recurrent depressionlast admitted 09/26/2019 for Hospital neuralgia, elevated troponin I ACS was ruled out, chronic anemia of chronic disease and generalized weakness secondary to E. coli UTI patient was sent in by the primary care physician for concern of shortness of breath that has worsened in the past few days. According to patient she has gained 30 stephie ndsin the past month patient discharge rate is 58 kg and patient is currently 65 kg according to the ER rate. Chest x-ray was done that suggested bilateral pleural effusion worse on the on the right as compared to the left with bilateral basilar airspace disease. evaluation the lab patient had a hemoglobin of 10 and MCV 102, chloride 94 carbon dioxide 42, BUN 71 and creatinine 1.38, patient's baseline. Patient was started on Lasix drip and cardiology was consulted. Patient is currently on 4 L of oxygen saturating well. Does complain of shortness of breath associated with weakness but denies any chest pain palpitations. She has abdominal pain and bloating but denies any nausea or vomiting. Review of Systems Constitutional: Denies chills, Denies fever, Denies lethargy, Denies malaise, Denies poor appetite, endorses weakness, endorses weight gain Eyes: denies decreased vision, denies diplopia, denies discharge, denies pain Ears: deny: decreased hearing Ears, nose, mouth and throat: Denies dental pain, Denies headache, Denies nasal discharge, Denies nose pain Cardiovascular: Denies chest pain,endorsesdecreased exercise tolerance, Denies edema, Denies high blood pressure, Denies irregular heart beat, Denies palpitations, Denies paroxysmal nocturnal dyspnea, Denies rapid heart beat,end orses shortness of breath Respiratory: Denies congestion, Denies cough, Denies cough with sputum, Denies dyspnea, Denies home oxygen, Denies wheezing Gastrointestinal: Denies abdominal pain, Denies change in bowel habits, Denies coffee ground emesis, Denies early satiety, Denies excessive gas, Denies heartburn, Denies hematemesis, Denies hematochezia, Denies loss of appetite, Denies nausea, Denies vomiting Genitourinary: Denies dysuria, Denies flank pain, Denies kidney stones, Denies menorrhagia, Denies urgency, Denies urinary frequency Musculoskeletal: Denies gait dysfunction, Denies limitation of motion, Denies morning stiffness, Denies muscle cramps Integumentary: Denies rash, Denies wounds, Denies brittle nails, Denies change in hair/nails, Denies darkening of skin Neurological: Denies balance difficulties, Denies change in speech, Denies double vision, Denies gait dysfunction, Denies loss of vision, Denies motor disturbance, Denies numbness, Denies paralysis, Denies paresthesias, Denies seizures Psychiatric: Denies anxiety, Denies depression Endocrine: Denies excessive sweating, Denies excessive thirst, Denies high blood sugars, Denies palpitations Hematologic/Lymphatic: Denies easy bruising, Denies lymphadenopathy Past Medical History Past Medical History: Heart Failure, CVA/TIA, Diabetes Mellitus, Hypertension, Renal Disease Additional Past Medical History / Comment(s): TIAs 4 with previous TIA 18 months ago. Motor seizures left leg anemic, irregular heart beat; murmur, pneum History of Any Multi-Drug Resistant Organisms: None Reported Past Surgical History: Appendectomy, Hysterectomy, Orthopedic Surgery Additional Past Surgical History / Comment(s): left knee arthroscopy, cyst removal (pilonidal cyst) Past Anesthesia/Blood Transfusion Reactions: No Reported Reaction Past Psychological History: Anxiety Smoking Status: Never smoker Past Alcohol Use History: None Reported Past Drug Use History: None Reported - Past Family History Brother(s) Additional Family Medical History / Comment(s): The patient has 2 brothers and both are . One from aspiration pneumonia with history of stomach cancer. A second brother from melanoma. Father Family Medical History: Congestive Heart Failure (CHF) Additional Family Medical History / Comment(s): Father at age 65 from heart failure. Mother Family Medical History: Congestive Heart Failure (CHF) Additional Family Medical History / Comment(s): Mother at age 92 from heart failure and had previous history of coronary artery disease with several MIs. Sister(s) Family Medical History: Cancer Additional Family Medical History / Comment(s): The patient has 2 sisters. One is stage IV breast cancer survivor and history of diverticulitis. Second sister has many medical problems. Son(s) Family Medical History: Hypertension Medications and Allergies Home Medications Medication Instructions Recorded Confirmed Type Pravastatin Sodium [Pravachol] 20 mg PO DAILY 04/23/14 09/23/19 History Acetaminophen Tab [Tylenol] 650 mg PO Q6H PRN 05/20/19 09/23/19 History Albuterol Nebulized [Ventolin 2.5 mg INHALATION RT-Q4H PRN 05/20/19 09/23/19 History Nebulized] Apixaban [Eliquis] 5 mg PO BID 05/20/19 09/23/19 History Budesonide 1 mg INHALATION RT-BID PRN 05/20/19 09/23/19 History Divalproex Sodium [Depakote 500 mg PO DAILY 05/20/19 09/23/19 History Sprinkle] Ferrous Sulfate [Iron (65 MG 325 mg PO BID 05/20/19 09/23/19 History Elemental)] Levothyroxine Sodium 112 mcg PO DAILY 05/20/19 09/23/19 History Lisinopril [Prinivil] 5 mg PO DAILY 05/20/19 09/23/19 History Magnesium Oxide 400 mg PO DAILY 05/20/19 09/23/19 History Melatonin 10 mg PO HS 05/20/19 09/23/19 History Sertraline [Zoloft] 50 mg PO DAILY 05/20/19 09/23/19 History Sucralfate [Carafate] 1 gm PO ACHS PRN 05/20/19 09/23/19 History Multivitamins, Thera [Multivitamin 1 tab PO DAILY 09/23/19 09/23/19 History (formulary)] Trivoli-3 Fatty Acids [Trivoli-3] 1,000 mg PO DAILY 09/23/19 09/23/19 History Cyanocobalamin (Vitamin B-12) 1,000 mcg PO DAILY 09/26/19 09/26/19 History [Vitamin B-12] Aspirin 81 mg PO DAILY chew 09/29/19 Rx Diclofenac Sodium Gel [Voltaren 4 gm TOPICAL QID tube 09/29/19 Rx Gel] Epoetin Stevan [Procrit] 10,000 unit IM Q7D #1 vial 09/29/19 Rx Furosemide [Lasix] 20 mg PO DAILY tab 09/29/19 Rx INSULIN ASPART (NovoLOG) [NovoLOG 0 unit SQ ACHS vial 09/29/19 Rx (formulary)] INSULIN ASPART (NovoLOG) [NovoLOG 5 unit SQ AC-SUPPER vial 09/29/19 Rx (formulary)] INSULIN ASPART (NovoLOG) [NovoLOG 8 unit SQ 0730,1230 vial 09/29/19 Rx (formulary)] Insulin Detemir (Levemir) [Levemir] 18 unit SQ HS syr 09/29/19 Rx Propranolol LA [Inderal LA] 60 mg PO DAILY #0 cap.sa.24h 09/29/19 Rx Sennosides-Docusate Sodium 2 each PO DAILY PRN tab 09/29/19 Rx [Senokot-S] Sodium Bicarbonate Tab 650 mg PO BID tab 09/29/19 Rx busPIRone HCl [Buspar] 10 mg PO BID #60 tab 09/29/19 Rx hydrALAZINE HCL [Apresoline] 25 mg PO BID #0 tab 09/29/19 Rx predniSONE 20 mg PO DAILY #30 tab 09/29/19 Rx Allergies Allergy/AdvReac Type Severity Reaction Status Date / Time doxycycline calcium Allergy Anaphylaxis Verified 09/27/19 11:22 [From Vibramycin] doxycycline hyclate Allergy Anaphylaxis Verified 09/27/19 11:22 [From Vibramycin] doxycycline monohydrate Allergy Anaphylaxis Verified 09/27/19 11:22 [From Vibramycin] erythromycin base Allergy Anaphylaxis Verified 09/27/19 11:22 Iodinated Contrast Media Allergy Anaphylaxis Verified 09/27/19 11:22 [Iodinated Contrast Media - IV Dye] Physical Exam Vitals: Vital Signs Temp Pulse Resp BP Pulse Ox 10/24/19 11:12 97.5 F L 61 19 155/89 97 Intake and Output 10/23/19 10/24/19 10/24/19 22:59 06:59 14:59 Other: Weight 65.317 kg - Constitutional General appearance: cooperative, no acute distress,appropriate for age - EENT Eyes: anicteric sclerae, PERRLA, normal appearance ENT: hearing grossly normal - Neck Neck: no lymphadenopathy, normal ROM, no other, no rigidity, no stridor, no thyromegaly - Respiratory Respiratory: bilateral: decreased air entry bilaterally with crackles at the bases no wheezing heard - Cardiovascular Rhythm: regular Heart sounds: normal: S1, S2 Abnormal Heart Sounds: no systolic murmur, no diastolic murmur, no rub, no S3 Gallop, no S4 Gallop, no click, no other - Gastrointestinal General gastrointestinal: normal bowel sounds, softtender in the epigastric area appears bloated - Integumentary Integumentary: no rash - Neurologic Neurologic: CNII-XII intact - Musculoskeletal Musculoskeletal: 1. Could not be assessed, strength equal bilaterally - Psychiatric Psychiatric: A&O x's 3, appropriate affect Results CBC & Chem 7: 10/24/19 12:19 12 12:19 Labs: Abnormal Lab Results - Last 24 Hours (Table) 10/24/19 10/24/19 10/24/19 Range/Units 12: 12: 12:19 RBC 3.45 L (3.80-5.40) m/uL Hgb 10.4 L (11.4-16.0) gm/dL MCV 102.5 H (80.0-100.0) fL MCHC 29.5 L (31.0-37.0) g/dL RDW 19.3 H (11.5-15.5) % Lymphocytes # 0.5 L (1.0-4.8) k/uL Chloride 94 L (98-107) mmol/L Carbon Dioxide 42 H* (22-30) mmol/L BUN 71 H (7-17) mg/dL Creatinine 1.38 H (0.52-1.04) mg/dL Glucose 122 H (74-99) mg/dL Magnesium 2.8 H (1.6-2.3) mg/dL Ur Leukocyte Esterase Trace H (Negative) Thrombosis Risk Factor Assmnt - DVT/VTE Prophylaxis DVT/VTE Prophylaxis: Pharmacologic Prophylaxis ordered Assessment and Plan Plan: 1 acute hypoxic hypercarbic respiratory failure patient required increased amount of oxygen with shortness of breath. Chest x-ray concerning for bilateral pleural effusions with pulmonary edema currently patient on Lasix chest wall and cardiology consulted monitor RAZA was on daily weight. echo ordered 2 abdominal pain likely secondary to constipation no masses no 50 dysfunction s een on the labs. Bowel sounds normal 3. Chronic anemia of chronic disease Stool for occult blood was negative in the last admission. Hemoglobin has been stable. 4. Generalized weakness , completed t/t for E. coli urinary tract infection. 5. Diabetes mellitus type 2 uncontrolled with hyperglycemia . continue Levemir 18 units at bedtime, Continue NovoLog 8 units with breakfast and lunch and 5 units with supper, continue NovoLog scale before meals and at bedtime. 6. Hypertension. Continue lisinopril 5 mg daily with parameters. Continue hydralazine at 25 mg twice daily and continue to hold Lasix. Inderal 60 mg po dialy 7. Atrial fibrillation, paroxysmal. Resume eliquis 5 mg po BID 8. Chronic kidney disease stage III. Avoid nephrotoxic agents, hold lisinopril for blood pressure less than 120 and goal systolic blood pressure 110- 130. Continue sodium bicarb , baseline creatinine 1.5 - 1.8 9. Generalized anxiety disorder and recurrent depression. Continue Xanax 0.25 mg twice daily as needed and Zoloft 50 mg daily. 10. 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 11. COnstipation - continue senna- docuaste as need for cosntipation 12. Hypothyroidism. Continue levothyroxine 112 g daily. 13. Hyperlipidemia. Continue pravastatin 20 mg at bedtime. 14. GI prophylaxis and gastroesophageal reflux disease. Protonix twice daily and Carafate. 15. DVT prophylaxis. continue eliquis. Discharge plan: she needs to be in the hospital at least one to 2 inpatient plan to discharge to [facility] when stable
[2019-10-24] MEDS ORDERED: SUCRALFATE 1 GM TAB PO PRN (14:54)
[2019-10-24] MEDS ORDERED: SENNOSIDES-DOCUSATE SODIUM 1 EACH TAB PO PRN (14:54)
[2019-10-24] MEDS ORDERED: FUROSEMIDE 10 MG/ML 2 ML VIAL IV ONE (15:01)
[2019-10-24] MEDS ORDERED: SODIUM CHLORIDE 0.9% 500 ML 500 ML IV ONE (16:07)
--- NOTE | 2019-10-24 16:50 | US ---
EXAMINATION TYPE: US chest DATE OF EXAM: 10/24/2019 COMPARISON: NONE CLINICAL HISTORY: assess for pleural effusion, poss thoracentesis.. Bilateral pleural effusions TECHNIQUE: Targeted ultrasound of the posterior lower bilateral hemithoraces EXAM MEASUREMENTS: Right Pleural Effusion pocket size: 7.7 cm Right skin surface to fluid distance: 3.2 cm Left Pleural Effusion pocket size: 1.6 cm Left skin surface to fluid distance: 2.3 cm Right side MARKED for possible thoracentesis outside the dept, loculated fluid pocket. Left side NOT MARKED for possible thoracentesis outside the dept. Pulmonologists are able to review the images in the patient?s EMR. IMPRESSIONS: There is demonstrated loculated right pleural effusion.
[2019-10-24] MEDS ORDERED: ASPIRIN 81 MG PO SCH (17:00)
[2019-10-24] MEDS: FERROUS SULFATE 325 MG TAB PO SCH (19:23)
--- NOTE | 2019-10-24 19:37 | ECHOF ---
Referral Reason:CHF MEASUREMENTS -------- HEIGHT: 160.0 cm WEIGHT: 65.3 kg BP: RVIDd: 4.2 cm (< 3.3) IVSd: 2.3 cm (0.6 - 1.1) LVIDd: 2.3 cm (3.9 - 5.3) LVPWd: 2.3 cm (0.6 - 1.1) IVSs: 2.7 cm LVIDs: 1.3 cm LVPWs: 2.2 cm LAESV Index (A-L): 29.53 ml/m Ao Diam: 3.1 cm (2.0 - 3.7) AV Cusp: 0.9 cm (1.5 - 2.6) LA Diam: 4.4 cm (2.7 - 3.8) MV EXCURSION: 13.536 mm (> 18.000) MV EF SLOPE: 72 mm/s (70 - 150) EPSS: 0.6 cm MV E Eddi: 0.50 m/s MV DecT: 308 ms MV A Eddi: 0.68 m/s MV E/A Ratio: 0.74 AV maxP.91 mmHg AV meanP.90 mmHg AR PHT: 926 ms RAP: 5.00 mmHg RVSP: 42.54 mmHg FINDINGS -------- Sinus rhythm. This was a technically difficult study with suboptimal views. The cavity size is decreased. There is severe concentric left ventricular hypertrophy. There is n ormal global left ventricular contractility. Overall left ventricular systolic function is normal w ith, an EF between 65 - 70 %. Increased LAP Grade 2 Diastolic Dysfunction. Apical hypertrophic ca rdiomyopathy. The right ventricle is severely enlarged. LA is midly dilated 29-33ml/m2. RA appears enlarged. Lumason used Aortic valve is trileaflet and is mildly thickened. Trace amount of aortic regurgitation. Cannot rule out vegetation on Aortic valve leaflet. The mitral valve is normal. The mitral valve leaflets are mildly thickened. Mild mitral regurgita tion is present. The tricuspid valve appears structurally normal. Severe tricuspid regurgitation present. There is mild pulmonary hypertension. The right ventricular systolic pressure, as measured by Doppler, is 4 2.54mmHg. Trace/mild (physiologic) pulmonic regurgitation. The aortic root size is normal. IVC Not well visulized. There is no pericardial effusion. CONCLUSIONS -------- 1. Sinus rhythm. 2. This was a technically difficult study with suboptimal views. 3. The cavity size is decreased. 4. There is severe concentric left ventricular hypertrophy. 5. There is normal global left ventricular contractility. 6. Increased LAP Grade 2 Diastolic Dysfunction. 7. Apical hypertrophic cardiomyopathy. 8. The right ventricle is severely enlarged. 9. LA is midly dilated 29-33ml/m2. 10. RA appears enlarged. 11. Lumason used 12. Aortic valve is trileaflet and is mildly thickened. 13. Trace amount of aortic regurgitation. 14. Cannot rule out vegetation on Aortic valve leaflet. 15. The mitral valve is normal. 16. The mitral valve leaflets are mildly thickened. 17. Mild mitral regurgitation is present. 18. The tricuspid valve appears structurally normal. 19. Severe tricuspid regurgitation present. 20. There is mild pulmonary hypertension. 21. The right ventricular systolic pressure, as measured by Doppler, is 42.54mmHg. 22. Trace/mild (physiologic) pulmonic regurgitation. 23. The aortic root size is normal. 24. IVC Not well visulized. 25. There is no pericardial effusion. [employer]: Lily Rivera RDCS
[2019-10-24] MEDS: INSULIN ASPART (NovoLOG) 100 UNIT/ML VIAL SQ SCH ×3 (19:44→22:28)
[2019-10-24] MEDS: DICLOFENAC SODIUM GEL 100 GM TUBE TOPICAL SCH ×2 (19:48→22:29)
[2019-10-24] MEDS: APIXABAN 5 MG TAB PO SCH (19:50)
[2019-10-24] MEDS: SODIUM BICARBONATE TAB 650 MG TAB PO SCH (19:50)
[2019-10-24] MEDS: busPIRone HCl 10 MG TAB PO SCH (19:50)
[2019-10-24] MEDS: MAGNESIUM OXIDE 400 MG TAB PO SCH (19:50)
[2019-10-24 21:20] LABS: Glucose,Whole Blood 296 mg/dL (75-99)
[2019-10-24] MEDS ORDERED: HYDROCORTISONE 10 MG TAB PO SCH (21:30)
[2019-10-24] MEDS: FUROSEMIDE 10 MG/ML 4 ML VIAL IV SCH (22:28)
[2019-10-24] MEDS: INSULIN DETEMIR (LEVEMIR) 100 UNIT/ML SYR SQ SCH (22:28)
[2019-10-24] MEDS: FLUDROCORTISONE 0.1 MG TAB PO SCH (22:29)
[2019-10-24] MEDS: hydrALAZINE HCL 25 MG TAB PO SCH (22:29)
[2019-10-24] MEDS: MELATONIN 5 MG TABLET PO SCH (23:30)
[2019-10-24] MEDS: HYDROCORTISONE SUCCINATE 100 MG/2 ML VIAL IV SCH (23:34)
[2019-10-25] MEDS: GABAPENTIN 100 MG CAP PO SCH ×3 (04:36→21:54)
[2019-10-25 06:30] LABS: Anisocytosis Slight; Basophils % (A) 1 %; Eosinophils % (A) 0 %; HGB 9.4 gm/dL (11.4-16.0); Hypochromasia Marked; Lymphocytes # (A) 0.3 k/uL (1.0-4.8); Lymphocytes % (A) 7 %; MCH 30.8 pg (25.0-35.0); MCHC 29.4 g/dL (31.0-37.0); MCV 104.8 fL (80.0-100.0); Mean Platelet Volume 8.1; Monocytes # (A) 0.2 k/uL (0-1.0); Monocytes % (A) 4 %; Neutrophils # (A) 3.5 k/uL (1.3-7.7); Neutrophils % (A) 87 %; Platelet Count 206 k/uL (150-450); RBC 3.06 m/uL (3.80-5.40); RDW 19.2 % (11.5-15.5); WBC 4.1 k/uL (3.8-10.6)
[2019-10-25 06:34] LABS: Macrocytosis Marked
[2019-10-25 06:41] LABS: Albumin 3.2 g/dL (3.5-5.0); Calcium 8.6 mg/dL (8.4-10.2); Potassium 4.7 mmol/L (3.5-5.1); Total Bilirubin 0.6 mg/dL (0.2-1.3); Total Protein 5.6 g/dL (6.3-8.2)
[2019-10-25 06:50] LABS: Glucose,Whole Blood 102 mg/dL (75-99)
[2019-10-25] MEDS: LEVOTHYROXINE 112 MCG TAB PO SCH (06:51)
[2019-10-25] MEDS: INSULIN ASPART (NovoLOG) 100 UNIT/ML VIAL SQ SCH ×7 (06:52→21:53)
[2019-10-25] MEDS: ALBUTEROL NEBULIZED 2.5 MG/3 ML INHALATION PRN ×3 (07:56→19:00)
[2019-10-25] MEDS: BUDESONIDE 1 MG/2 ML NEBU INHALATION PRN ×2 (07:56→19:00)
[2019-10-25] MEDS ORDERED: SPIRONOLACTONE 25 MG TAB PO SCH (08:00)
[2019-10-25] MEDS ORDERED: PROPRANOLOL LA 60 MG CAP.SA.24H PO SCH (08:00)
[2019-10-25] MEDS ORDERED: FUROSEMIDE 10 MG/ML 2 ML VIAL IV ONE (08:41)
[2019-10-25] MEDS: DIVALPROEX SPRINKLE 125 MG CAP.SPRINK PO SCH (10:05)
[2019-10-25] MEDS: hydrALAZINE HCL 25 MG TAB PO SCH (10:06)
[2019-10-25] MEDS: SERTRALINE 50 MG TAB PO SCH (10:06)
[2019-10-25] MEDS: FERROUS SULFATE 325 MG TAB PO SCH ×2 (10:06→17:18)
[2019-10-25] MEDS: busPIRone HCl 10 MG TAB PO SCH ×2 (10:06→17:18)
[2019-10-25] MEDS: FUROSEMIDE 10 MG/ML 4 ML VIAL IV SCH (10:07)
[2019-10-25] MEDS: APIXABAN 5 MG TAB PO SCH (10:07)
[2019-10-25] MEDS: SODIUM BICARBONATE TAB 650 MG TAB PO SCH ×2 (10:07→17:18)
[2019-10-25] MEDS: HYDROCORTISONE SUCCINATE 100 MG/2 ML VIAL IV SCH ×3 (10:08→23:29)
[2019-10-25] MEDS: DICLOFENAC SODIUM GEL 100 GM TUBE TOPICAL SCH ×4 (10:19→21:56)
[2019-10-25] MEDS: FLUDROCORTISONE 0.1 MG TAB PO SCH (10:20)
[2019-10-25] MEDS ORDERED: METOLAZONE 5 MG TAB PO STA (11:28)
--- NOTE | 2019-10-25 11:56 | P.CNPUL ---
History of Present Illness Consult date: 10/25/19 Requesting physician: Nadira Gallardo Reason for consult: dyspnea, hypoxemia (acute hypoxic respiratory failure), pleural effusion, abnormal CXR/CT Chief complaint: Dyspnea, History of present illness: This is 79-year-old white female patient of Dr. Mills, with past medical history of chronic congestive heart failure with diastolic dysfunction, hypertension, diabetes mellitus type 2, chronic kidney disease stage III, previous history of TIA/CVA, anxiety disorder, chronic atrial fibrillation on Eliquis, patient had been on home oxygen previously, currently not requiring home oxygen. Patient also has moderately severe pulmonary hypertension, PA systolic of 56 monos of mercury as seen on previous echocardiogram. We had previously seen the patient in consultation back in May for acute exacerbation of diastolic CHF, and earlier in the month in May for small left apical pneumothorax. Patient's sister gives history of previous thoracentesis at [facility], but she is unsure of the dates, and the results of of the fluid analysis. On 10/25/2019 patient was brought into the emergency department per EMS from her home for evaluation of increasing shortness of breath. Patient was being treated on an outpatient basis for fluid on her lungs, with no improvement. Patient denied any chest pain, denied any palpitations, denied any fever or chills, no cough or congestion, no hemoptysis. Chest x-ray showed worsening bilateral pleural effusions moderate size pocket on the right and small pocket on the left. EKG showed sinus bradycardia, with right bundle branch block with T-wave inversion in inferolateral leads. Echocardiogram showed left ventricular systolic function preserved with an EF of 65-70%. Right ventricle was severely enlarged, trace amount of aortic regurgitation however could not rule out aortic valve leaflet. Mild mitral regurg and severe tricuspid regurg with mild pulmonary hypertension with right-sided pressures of 42 mmHg. Patient was sta rted on IV diuretics, however she has been borderline hypotensive, and hydrocortisone and Florinef were added per attending physician. She has been on BiPAP support with pressures of 14/6 and FiO2 of 50%. Labs were reviewed showing white blood cell count of 4.4, hemoglobin 10.4, B1 of 71 and creatinine is 1.38, proBNP was 70,009 100, troponin 0.056. Urinalysis was negative for signs of infection. Review of Systems All systems: negative Constitutional: Denies chills, Denies fever Eyes: denies blurred vision, denies pain Ears, nose, mouth and throat: Denies headache, Denies sore throat Cardiovascular: Denies chest pain, Denies shortness of breath Respiratory: Reports dyspnea, Denies cough Gastrointestinal: Denies abdominal pain, Denies diarrhea, Denies nausea, Denies vomiting Genitourinary: Denies dysuria, Denies hematuria Musculoskeletal: Denies myalgias Integumentary: Denies pruritus, Denies rash Neurological: Denies numbness, Denies weakness Psychiatric: Denies anxiety, Denies depression Endocrine: Denies fatigue, Denies weight change Past Medical History Past Medical History: Heart Failure, CVA/TIA, Diabetes Mellitus, Hypertension, Renal Disease Additional Past Medical History / Comment(s): TIAs 4 with previous TIA 18 months ago. Motor seizures left leg anemic, irregular heart beat; murmur, pneum History of Any Multi-Drug Resistant Organisms: None Reported Past Surgical History: Appendectomy, Hysterectomy, Orthopedic Surgery Additional Past Surgical History / Comment(s): left knee arthroscopy, cyst removal (pilonidal cyst) Past Anesthesia/Blood Transfusion Reactions: No Reported Reaction Past Psychological History: Anxiety Smoking Status: Never smoker Past Alcohol Use History: None Reported Past Drug Use History: None Reported - Past Family History Brother(s) Additional Family Medical History / Comment(s): The patient has 2 brothers and both are . One from aspiration pneumonia with history of stomach cancer. A second brother from melanoma. Father Family Medical History: Congestive Heart Failure (CHF) Additional Family Medical History / Comment(s): Father at age 65 from heart failure. Mother Family Medical History: Congestive Heart Failure (CHF) Additional Family Medical History / Comment(s): Mother at age 92 from heart failure and had previous history of coronary artery disease with several MIs. Sister(s) Family Medical History: Cancer Additional Family Medical History / Comment(s): The patient has 2 sisters. One is stage IV breast cancer survivor and history of diverticulitis. Second sister has many medical problems. Son(s) Family Medical History: Hypertension Medications and Allergies Home Medications Medication Instructions Recorded Confirmed Type Pravastatin Sodium [Pravachol] 20 mg PO DAILY@1700 04/23/14 10/24/19 History Acetaminophen Tab [Tylenol] 650 mg PO Q6H PRN 05/20/19 10/24/19 History Albuterol Nebulized [Ventolin 2.5 mg INHALATION RT-Q4H PRN 05/20/19 10/24/19 History Nebulized] Apixaban [Eliquis] 5 mg PO BID@0800,1700 05/20/19 10/24/19 History Budesonide 1 mg INHALATION RT-BID PRN 05/20/19 10/24/19 History Divalproex Sodium [Depakote 500 mg PO DAILY@0800 05/20/19 10/24/19 History Sprinkle] Ferrous Sulfate [Iron (65 MG 325 mg PO BID@0800,1700 05/20/19 10/24/19 History Elemental)] Levothyroxine Sodium 112 mcg PO DAILY@0600 05/20/19 10/24/19 History Lisinopril [Prinivil] 5 mg PO DAILY@0800 05/20/19 10/24/19 History Magnesium Oxide 400 mg PO DAILY@1700 05/20/19 10/24/19 History Melatonin 10 mg PO HS@2100 05/20/19 10/24/19 History Sertraline [Zoloft] 50 mg PO DAILY@0800 05/20/19 10/24/19 History Sucralfate [Carafate] 1 gm PO ACHS PRN 05/20/19 10/24/19 History Multivitamins, Thera [Multivitamin 1 tab PO DAILY@1700 09/23/19 10/24/19 History (formulary)] Cyanocobalamin (Vitamin B-12) 1,000 mcg PO DAILY@1700 09/26/19 10/24/19 History [Vitamin B-12] Diclofenac Sodium Gel [Voltaren 4 gm TOPICAL QID tube 09/29/19 10/24/19 Rx Gel] INSULIN ASPART (NovoLOG) [NovoLOG 5 unit SQ AC-SUPPER vial 09/29/19 10/24/19 Rx (formulary)] Aspirin 81 mg PO DAILY@1700 10/24/19 10/24/19 History Epoetin Stevan [Procrit] 10,000 unit IM FR 10/24/19 10/24/19 History Fludrocortisone Acetate 0.1 mg PO BID@0800,1700 10/24/19 10/24/19 History Furosemide [Lasix] 40 mg PO BID@0600,1400 10/24/19 10/24/19 History Gabapentin [Neurontin] 100 mg PO BID@0800,2100 10/24/19 10/24/19 History Hydrocortisone 10 mg PO DAILY@0800 10/24/19 10/24/19 History Hydrocortisone [Cortef] 5 mg PO HS@2130 10/24/19 10/24/19 History INSULIN ASPART (NovoLOG) [NovoLOG 8 unit SQ BID@0700,1100 10/24/19 10/24/19 History (formulary)] INSULIN ASPART (NovoLOG) [NovoLOG See Protocol SQ ACHS 10/24/19 10/24/19 History (formulary)] Insulin Detemir (Levemir) [Levemir] 18 unit SQ HS@2100 10/24/19 10/24/19 History Metolazone [Zaroxolyn] 2.5 mg PO DAILY@1400 10/24/19 10/24/19 History Propranolol LA [Inderal LA] 60 mg PO DAILY@0800 10/24/19 10/24/19 History Sennosides-Docusate Sodium 2 tab PO DAILY PRN 10/24/19 10/24/19 History [Senokot-S] Sodium Bicarbonate Tab 650 mg PO BID@0800,1700 10/24/19 10/24/19 History Spironolactone [Aldactone] 25 mg PO DAILY@0800 10/24/19 10/24/19 History busPIRone HCl [Buspar] 10 mg PO BID@0800,1700 10/24/19 10/24/19 History hydrALAZINE HCL [Apresoline] 25 mg PO BID@0800,1700 10/24/19 10/24/19 History Allergies Allergy/AdvReac Type Severity Reaction Status Date / Time doxycycline calcium Allergy Anaphylaxis Verified 10/24/19 13:20 [From Vibramycin] doxycycline hyclate Allergy Anaphylaxis Verified 10/24/19 13:20 [From Vibramycin] doxycycline monohydrate Allergy Anaphylaxis Verified 10/24/19 13:20 [From Vibramycin] erythromycin base Allergy Anaphylaxis Verified 10/24/19 13:20 Iodinated Contrast Media Allergy Anaphylaxis Verified 10/24/19 13:20 [Iodinated Contrast Media - IV Dye] Physical Exam Vitals: Vital Signs Temp Pulse Pulse Resp BP BP Pulse Ox 10/25/19 11:38 60 10/25/19 11:26 62 10/25/19 08:11 60 10/25/19 08:00 97.3 F L 67 20 94/64 100 10/25/19 07:59 56 L 10/25/19 04:00 98.8 F 58 L 22 122/71 100 10/25/19 00:00 98.4 F 56 L 22 94/59 100 10/24/19 20:00 97.5 F L 71 20 95/53 100 10/24/19 16:40 118/59 10/24/19 16:25 61 18 124/58 100 10/24/19 16:00 60 18 81/58 84 L 10/24/19 15:22 97.5 F L 65 18 115/59 98 10/24/19 15:05 65 18 115/59 98 10/24/19 14:41 66 18 113/62 98 10/24/19 14:37 68 18 85/65 99 10/24/19 13:43 66 18 110/65 90 L Intake and Output 10/24/19 10/25/19 10/25/19 22:59 06:59 14:59 Intake Total 10 Output Total 350 Balance -340 Intake: IV 10 .9 10 Output: Urine 350 Uretheral (Fam) 350 Other: Voiding Method Indwelling Catheter Indwelling Catheter Weight 65 kg 65 kg GENERAL EXAM: Alert, very pleasant, 79-year-old white female patient, on BiPAP support, with pressures of 14/6 and FiO2 of 50%, and we switched the patient over to nasal cannula, and so far she is tolerating it well at 6 L., comfortable in no apparent distress. HEAD: Normocephalic/atraumatic. EYES: Normal reaction of pupils, equal size. Conjunctiva pink, sclera white. NOSE: Clear with pink turbinates. THROAT: No erythema or exudates. NECK: No masses, no JVD, no thyroid enlargement, no adenopathy. CHEST: No chest wall deformity. Symmetrical expansion. LUNGS: Equal air entry with bibasilar crackles, dementia breath sounds at the bases. wheeze, rhonchi or dullness. CVS: Regular rate and rhythm, normal S1 and S2, no gallops, no murmurs, no rubs ABDOMEN: Soft, nontender. No hepatosplenomegaly, normal bowel sounds, no guarding or rigidity. EXTREMITIES: No clubbing, mild pretibial edema, no cyanosis, 2+ pulses and upper and lower extremities. MUSCULOSKELETAL: Muscle strength and tone normal. SPINE: No scoliosis or deformity SKIN: No rashes CENTRAL NERVOUS SYSTEM: Alert and oriented -3. No focal deficits, tone is normal in all 4 extremities. PSYCHIATRIC: Alert and oriented -3. Appropriate affect. Intact judgment and insight. Results - Laboratory Findings CBC and BMP: 10/25/19 05:51 10/25/19 05:51 PT/INR, D-dimer PT 10.6 sec (9.0-12.0) 10/24/19 12: INR 1.0 (<1.2) 10/24/19 12:19 Abnormal lab findings: Abnormal Labs 10/24/19 10/24/19 10/24/19 12:19 12:19 12:19 RBC 3.45 L Hgb 10.4 L Hct MCV 102.5 H MCHC 29.5 L RDW 19.3 H Lymphocytes # 0.5 L Macrocytosis Chloride 94 L Carbon Dioxide 40 H BUN 71 H Creatinine 1.38 H Glucose 122 H POC Glucose (mg/dL) Magnesium 2.8 H Troponin I 0.056 H* Total Protein Albumin Ur Leukocyte Esterase 10/24/19 10/24/19 10/25/19 12:19 21:18 05:51 RBC 3.06 L Hgb 9.4 L Hct 32.0 L MCV 104.8 H MCHC 29.4 L RDW 19.2 H Lymphocytes # 0.3 L Macrocytosis Marked A Chloride Carbon Dioxide BUN Creatinine Glucose POC Glucose (mg/dL) 296 H Magnesium Troponin I Total Protein Albumin Ur Leukocyte Esterase Trace H 10/25/19 10/25/19 05:51 06:49 RBC Hgb Hct MCV MCHC RDW Lymphocytes # Macrocytosis Chloride 94 L Carbon Dioxide 44 H* BUN 74 H Creatinine 1.65 H Glucose 102 H POC Glucose (mg/dL) 102 H Magnesium Troponin I Total Protein 5.6 L Albumin 3.2 L Ur Leukocyte Esterase - Diagnostic Findings Chest x-ray: report reviewed, image reviewed Additional studies: Ultrasound the chest reviewed Assessment and Plan Plan: Assessment: #1. Acute on chronic hypoxic respiratory failure secondary to acute exa cerbation of diastolic congestive heart failure #2. Bilateral pleural effusions, right greater than left, related to acute CHF exacerbation #3. History of paroxysmal atrial fibrillation on Eliquis #4. Chronic kidney disease stage III #5. History of TIA #'s. Hypertension #7. Seizure disorder #9. Generalized anxiety disorder Plan: Continue the diuretic therapy, patient may need BiPAP intermittently, she tolerated nasal cannula so far, we'll put Eliquis on hold for possibility of r ight-sided thoracentesis if her shortness of breath should worsen or if we're not able to diurese her any further, case was discussed with cardiology, we'll continue to follow I performed a history & physical examination of the patient and discussed their management with my nurse practitioner, Amelia Springer. I reviewed the nurse practitioner's note and agree with the documented findings and plan of care. Lung sounds are positive for crackles at the bases. The findings and the impression was discussed with the patient. I attest to the documentation by the nurse practitioner. Time with Patient: Greater than 30
[2019-10-25 12:00] LABS: Glucose,Whole Blood 172 mg/dL (75-99)
--- NOTE | 2019-10-25 12:03 | CONS ---
CONSULTATION DATE OF SERVICE: 10/24/2019 This patient's medical records reviewed. The patient was brought from [facility] with the complaint of increasing shortness of breath. The patient has gained about 20 pounds of weight and is short of breath. She says her abdomen was distended. This patient has repeated admissions with chronic hypoxic respiratory failure. She has been using oxygen at home. She has a history of paroxysmal atrial fibrillation. There is no definite prior history of myocardial infarction. She has a history of CVA and TIA. She has a history of hypertension in the past, but it has not been documented to very severe uncontrolled hypertension. The patient denies any fever, chills, or cough. PAST MEDICAL HISTORY: Past medical history includes history of CVA, TIA, chronic renal failure, diabetes, history of appendicectomy, hysterectomy and orthopedic surgery. HOME MEDICATIONS: Patient's home medications included Pravachol, Depakote, Prinivil, Zoloft, insulin, Inderal LA once a day, BuSpar and Apresoline 25 mg twice a day. PHYSICAL EXAMINATION: Physical examination at present reveals a 79-year-old female who is comfortable, is not in any acute respiratory distress. Patient's blood pressure is 100/64 mmHg, heart rate is 60 per minute. Head/ENT examination is negative. Neck is supple. Jugular venous pressure is elevated up to the angle of jaw. Both the carotid pulses are felt. There is no bruit. Chest is symmetrical. HEART: The PMI is not felt. First and second heart sounds are heard. LUNGS: Examination reveals bilateral diminished air entry. Abdomen is soft. EXTREMITIES: There is a trace leg edema Patient's chest x-ray shows bilateral pleural effusion more on the right side. Patient did had previous thoracenteses. Creatinine is 1.38. BNP level is 70,000. The patient's echocardiogram reviewed. It shows evidence of severe degree of left ventricular hypertrophy and pulmonary hypertension. FINAL IMPRESSION: This patient is admitted with congestive cardiac failure. Patient predominantly has a right-sided heart failure. She has a evidence of severe degree of left ventricular hypertrophy, which is difficult to explain, underlying restrictive cardiomyopathy cannot be entirely excluded. RECOMMENDATIONS: We will aggressively diurese the patient. We will discontinue hydralazine as well as Inderal and start her on Lasix drip, Zaroxolyn 5 mg daily would be given. We will obtain the chest ultrasound to consider thoracentesis. MISAEL / IJN: [id number] /
--- NOTE | 2019-10-25 12:06 | PN ---
PROGRESS NOTE DATE OF SERVICE: 10/25/2019 This patient was admitted with congestive cardiac failure. She remains comfortable. Her urine output remains borderline. Heart rate is 60 per minute, blood pressure is 100/65 mmHg. Jugular venous pressure remains elevated. First and second heart sounds are normal. Lungs reveal bilateral diminished air entry. ASSESSMENT AND PLAN: This patient has a predominantly severe degree of right-sided heart failure. We will start on the Lasix drip and give Zaroxolyn 5 mg daily, add Aldactone 25 mg b.i.d. Patient's overall prognosis is quite poor. MMODL / IJN: [id number] /
[2019-10-25] MEDS: FUROSEMIDE 100 MG in SODIUM CHLORIDE 0.9% 90 ML IV SCH ×2 (12:51→21:54)
--- NOTE | 2019-10-25 13:34 | P.PN ---
Subjective Progress Note Date: 10/25/19 This is a 79-year-old female patient of Dr. Mills with past medical history of chronic kidney disease stage III, atrial fibrillation, chronic hypoxic respiratory failure on 2 L home O2, diabetes mellitus type 2, history of TIA, hypertension, seizure disorder without any recent seizure activity, generalized anxiety disorder and recurrent depressionlast admitted 09/26/2019 for Hospital neuralgia, elevated troponin I ACS was ruled out, chronic anemia of chronic disease and generalized weakness secondary to E. coli UTI patient was sent in by the primary care physician for concern of shortness of breath that has worsened in the past few days. According to patient she has gained 30 poundsin the past month patient discharge rate is 58 kg and patient is currently 65 kg according to the ER rate. Chest x-ray was done that suggested bilateral pleural effusion worse on the on the right as compared to the left with bilateral basilar airspace disease. evaluation the lab patient had a hemoglobin of 10 and MCV 102, chloride 94 carbon dioxide 42, BUN 71 and creatinine 1.38, patient's baseline. Patient was started on Lasix drip and cardiology was consulted. Patient is currently on 4 L of oxygen saturating well. Does complain of shortness of breath associated with weakness but denies any chest pain palpitations. She has abdominal pain and bloating but denies any nausea or vomiting. 10/25: patient has been seen in the office and treated recently for anasarca for the past 3 weeks on Lasix and metolazone. She is also been treated for adrenal insufficiency and was started on Cortef. Patient denies any chest pain or shortness of breath, no dizziness at the time of this evaluation. Patient does not recall seen Dr. Gallardo yesterday in the emergency center. She has had a Fam catheter placed. Patient required nonrebreather is currently on high flow nasal cannula. Echocardiogram reveals EF 65-70%, severe concentric left ventricular hypertrophy, apical hypertrophic cardiomyopathy trace aortic regurgitation, cannot rule out vegetation on aortic valve, mild mitral regurgita tion, severe tricuspid regurgitation, mild pulmonary hypertension. Patient has been seen by cardiology and patient started on Lasix drip and zaroxolyn and aldactone. Chest ultrasound was done finding a right pleural effusion 7.7 cm and a left pleural effusion 1.6 cm. Pulmonary medicine is continuing diuretic therapy. Eliquis on hold for possible right-sided thoracentesis if shortness of breath worsens. Review of Systems Constitutional: Denies chills, Denies fever, Denies lethargy, Denies malaise, Denies poor appetite, endorses weakness, endorses weight gain Eyes: denies decreased vision, denies diplopia, denies discharge, denies pain Ears: deny: decreased hearing Ears, nose, mouth and throat: Denies dental pain, Denies headache, Denies nasal discharge, Denies nose pain Cardiovascular: Denies chest pain,endorses decreased exercise tolerance, Denies edema, Denies high blood pressure, Denies irregular heart beat, Denies palpitations, Denies paroxysmal nocturnal dyspnea, Denies rapid heart beat, denies shortness of breath Respiratory: Denies congestion, Denies cough, Denies cough with sputum, Denies dyspnea, Denies home oxygen, Denies wheezing Gastrointestinal: Denies abdominal pain, Denies change in bowel habits, Denies coffee ground emesis, Denies early satiety, Denies excessive gas, Denies heartburn, Denies hematemesis, Denies hematochezia, Denies loss of appetite, Denies nausea, Denies vomiting Genitourinary: Denies dysuria, Denies flank pain, Denies kidney stones, Denies menorrhagia, Denies urgency, Denies urinary frequency Musculoskeletal: Denies gait dysfunction, Denies limitation of motion, Denies morning stiffness, Denies muscle cramps Integumentary: Denies rash, Denies wounds, Denies brittle nails, Denies change in hair/nails, Denies darkening of skin Neurological: Denies balance difficulties, Denies change in speech, Denies double vision, Denies gait dysfunction, Denies loss of vision, Denies motor di sturbance, Denies numbness, Denies paralysis, Denies paresthesias, Denies seizures Psychiatric: Denies anxiety, Denies depression Endocrine: Denies excessive sweating, Denies excessive thirst, Denies high blood sugars, Denies palpitations Hematologic/Lymphatic: Denies easy bruising, Denies lymphadenopathy Objective - Vital Signs Vital signs: Vital Signs Temp 98.8 F 10/25/19 04:00 Pulse 58 L 10/25/19 04:00 Resp 22 10/25/19 04:00 BP 122/71 10/25/19 04:00 Pulse Ox 100 10/25/19 04:00 Intake & Output 10/24/19 10/25/19 10/25/19 18:59 06:59 18:59 Intake Total 200 10 Output Total 350 Balance 200 -340 Weight 65.317 kg 65 kg Intake: IV 10 .9 10 Oral 200 Output: Urine 350 Uretheral (Fam) 350 Other: Voiding Method Indwelling Catheter - Exam - Constitutional General appearance: cooperative, no acute distress, appropriate for age, sister at bedside - EENT Eyes: anicteric sclerae, PERRLA, normal appearance ENT: hearing grossly normal - Neck Neck: no lymphadenopathy, normal ROM, no other, no rigidity, no stridor, no thyromegaly - Respiratory Respiratory: bilateral: decreased air entry bilaterally with crackles at the bases no wheezing heard - Cardiovascular Rhythm: regular Heart sounds: normal: S1, S2 Abnormal Heart Sounds: no systolic murmur, no diastolic murmur, no rub, no S3 Gallop, no S4 Gallop, no click, no other - Gastrointestinal General gastrointestinal: normal bowel sounds, soft mild tender in the epigastric area appears bloated - Integumentary Integumentary: no rash - Neurologic Neurologic: CNII-XII intact - Musculoskeletal Musculoskeletal: strength equal bilaterally - Psychiatric Psychiatric: A&O x's 3, appropriate affect - Labs CBC & Chem 7: 10/25/19 05:51 10/25/19 05:51 Labs: Abnormal Lab Results - Last 24 Hours (Table) 10/24/19 10/24/19 10/24/19 Range/Units 12:19 12:19 12:19 RBC 3.45 L (3.80-5.40) m/uL Hgb 10.4 L (11.4-16.0) gm/dL Hct (34.0-46.0) % MCV 102.5 H (80.0-100.0) fL MCHC 29.5 L (31.0-37.0) g/dL RDW 19.3 H (11.5-15.5) % Lymphocytes # 0.5 L (1.0-4.8) k/uL Macrocytosis Chloride 94 L (98-107) mmol/L Carbon Dioxide 40 H (22-30) mmol/L BUN 71 H (7-17) mg/dL Creatinine 1.38 H (0.52-1.04) mg/dL Glucose 122 H (74-99) mg/dL POC Glucose (mg/dL) (75-99) mg/dL Magnesium 2.8 H (1.6-2.3) mg/dL Troponin I 0.056 H* (0.000-0.034) ng/mL Total Protein (6.3-8.2) g/dL Albumin (3.5-5.0) g/dL Ur Leukocyte Esterase (Negative) 10/24/19 10/24/19 10/25/19 Range/Units : 21:18 05:51 RBC 3.06 L (3.80-5.40) m/uL Hgb 9.4 L (11.4-16.0) gm/dL Hct 32.0 L (34.0-46.0) % MCV 104.8 H (80.0-100.0) fL MCHC 29.4 L (31.0-37.0) g/dL RDW 19.2 H (11.5-15.5) % Lymphocytes # 0.3 L (1.0-4.8) k/uL Macrocytosis Marked A Chloride (98-107) mmol/L Carbon Dioxide (22-30) mmol/L BUN (7-17) mg/dL Creatinine (0.52-1.04) mg/dL Glucose (74-99) mg/dL POC Glucose (mg/dL) 296 H (75-99) mg/dL Magnesium (1.6-2.3) mg/dL Troponin I (0.000-0.034) ng/mL Total Protein (6.3-8.2) g/dL Albumin (3.5-5.0) g/dL Ur Leukocyte Esterase Trace H (Negative) 10/25/19 10/25/19 Range/Units 05:51 06:49 RBC (3.80-5.40) m/uL Hgb (11.4-16.0) gm/dL Hct (34.0-46.0) % MCV (80.0-100.0) fL MCHC (31.0-37.0) g/dL RDW (11.5-15.5) % Lymphocytes # (1.0-4.8) k/uL Macrocytosis Chloride 94 L (98-107) mmol/L Carbon Dioxide 44 H* (22-30) mmol/L BUN 74 H (7-17) mg/dL Creatinine 1.65 H (0.52-1.04) mg/dL Glucose 102 H (74-99) mg/dL POC Glucose (mg/dL) 102 H (75-99) mg/dL Magnesium (1.6-2.3) mg/dL Troponin I (0.000-0.034) ng/mL Total Protein 5.6 L (6.3-8.2) g/dL Albumin 3.2 L (3.5-5.0) g/dL Ur Leukocyte Esterase (Negative) Assessment and Plan Plan: 1. Acute on chronic hypoxic hypercarbic respiratory failuresecondary to bilateral pleural effusions and pulmonary edema, acute on chronic diastolic heart failure. Patient's been started on Lasix tract, Zaroxolyn1 dose, Aldactone. cardiology and pulmonary medicine on consult. Echocardiogram as above. continue to monitor I&O and daily weights. 2. Abdominal pain secondary to constipation. 3. Anemia of chronic disease Stool for occult blood was negative in the last admission. Hemoglobin has been stable. Continue ferrous sulfate 325 mg twice daily. 4. Generalized weakness. PT and OT on consult. Plan for subacute rehab at discharge. 5. Diabetes mellitus type 2 uncontrolled with hyperglycemia. Continue Levemir 18 units at bedtime, NovoLog 8 units with breakfast and lunch and 5 units with supper, continue NovoLog scale before meals and at bedtime. 6. Hypertension. Continue Lasix drip, Aldactone. 7. Atrial fibrillation, paroxysmal. Eliquis 5 mg po BID on hold for possible thoracentesis. 8. Chronic kidney disease stage III. Avoid nephrotoxic agents, hold lisinopril, baseline creatinine 1.5 - 1.8. Continue sodium bicarb 651 g twice daily. 9. Generalized anxiety disorder and recurrent depression. Continue Xanax 0.25 mg twice daily as needed and Zoloft 50 mg daily. 10. 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 11. Constipation - continue senna- docuaste as need for cosntipation 12. Hypothyroidism. Continue levothyroxine 112 g daily. 13. Hyperlipidemia. Continue pravastatin 20 mg at bedtime. 14. Adrenal insufficiency. Discontinue Florinef andCortef. Patient placed on Solu-Cortef 50 milligrams IV every 8 hours. 15. GI prophylaxis and gastroesophageal reflux disease. Protonix twice daily and Carafate. 16. DVT prophylaxis. Eliquis currently on hold for possible thoracentesis. Discharge plan: [place] under the care of Dr. Mills Impression and plan of care have been directed as dictated by the signing physician. Nubia Caruso nurse practitioner acting as scribe for signing physician.
[2019-10-25 16:42] LABS: Glucose,Whole Blood 299 mg/dL (75-99)
[2019-10-25] MEDS: MAGNESIUM OXIDE 400 MG TAB PO SCH (17:18)
[2019-10-25] MEDS: PRAVASTATIN SODIUM 20 MG TAB PO SCH (17:18)
[2019-10-25 21:49] LABS: Glucose,Whole Blood 344 mg/dL (75-99)
[2019-10-25] MEDS: INSULIN DETEMIR (LEVEMIR) 100 UNIT/ML SYR SQ SCH (21:53)
[2019-10-25] MEDS: SPIRONOLACTONE 25 MG TAB PO SCH (21:54)
[2019-10-25] MEDS: MELATONIN 5 MG TABLET PO SCH (21:55)
[2019-10-26 06:54] LABS: Anisocytosis Slight; Basophils # (A) 0.1 k/uL (0-0.2); Basophils % (A) 2 %; Eosinophils % (A) 0 %; HCT 28.5 % (34.0-46.0); HGB 8.6 gm/dL (11.4-16.0); Hypochromasia Marked; Lymphocytes # (A) 0.3 k/uL (1.0-4.8); Lymphocytes % (A) 7 %; MCH 31.1 pg (25.0-35.0); MCHC 30.4 g/dL (31.0-37.0); MCV 102.3 fL (80.0-100.0); Macrocytosis Moderate; Mean Platelet Volume 8.4; Monocytes # (A) 0.2 k/uL (0-1.0); Monocytes % (A) 5 %; Neutrophils # (A) 3.2 k/uL (1.3-7.7); Neutrophils % (A) 85 %; Platelet Count 182 k/uL (150-450); RBC 2.78 m/uL (3.80-5.40); RDW 19.5 % (11.5-15.5); WBC 3.8 k/uL (3.8-10.6)
[2019-10-26 06:56] LABS: Glucose,Whole Blood 199 mg/dL (75-99)
[2019-10-26] MEDS: INSULIN ASPART (NovoLOG) 100 UNIT/ML VIAL SQ SCH ×7 (06:59→21:18)
[2019-10-26] MEDS: LEVOTHYROXINE 112 MCG TAB PO SCH (07:02)
[2019-10-26 07:12] LABS: Calcium 8.1 mg/dL (8.4-10.2); Potassium 4.7 mmol/L (3.5-5.1); Total Bilirubin 0.4 mg/dL (0.2-1.3); Total Protein 5.2 g/dL (6.3-8.2)
[2019-10-26] MEDS: ALBUTEROL NEBULIZED 2.5 MG/3 ML INHALATION PRN ×4 (07:40→20:00)
[2019-10-26] MEDS: BUDESONIDE 1 MG/2 ML NEBU INHALATION PRN ×2 (07:40→20:00)
[2019-10-26] MEDS: GABAPENTIN 100 MG CAP PO SCH ×2 (08:46→21:19)
[2019-10-26] MEDS: FERROUS SULFATE 325 MG TAB PO SCH ×2 (08:46→17:11)
[2019-10-26] MEDS: SERTRALINE 50 MG TAB PO SCH (08:46)
[2019-10-26] MEDS: DIVALPROEX SPRINKLE 125 MG CAP.SPRINK PO SCH (08:46)
[2019-10-26] MEDS: busPIRone HCl 10 MG TAB PO SCH ×2 (08:46→17:11)
[2019-10-26] MEDS: SPIRONOLACTONE 25 MG TAB PO SCH ×2 (08:46→21:19)
[2019-10-26] MEDS: SODIUM BICARBONATE TAB 650 MG TAB PO SCH ×2 (08:46→17:11)
[2019-10-26] MEDS: HYDROCORTISONE SUCCINATE 100 MG/2 ML VIAL IV SCH ×3 (08:47→23:24)
[2019-10-26] MEDS: DICLOFENAC SODIUM GEL 100 GM TUBE TOPICAL SCH ×4 (09:00→21:21)
[2019-10-26] MEDS: FUROSEMIDE 100 MG in SODIUM CHLORIDE 0.9% 90 ML IV SCH ×2 (10:34→12:04)
--- NOTE | 2019-10-26 10:35 | XR ---
EXAMINATION TYPE: XR chest 1V portable DATE OF EXAM: 10/26/2019 CLINICAL HISTORY: Difficulty breathing progress study. TECHNIQUE: Single AP portable frontal view of the chest is obtained. COMPARISON: Chest x-ray from 2 days earlier FINDINGS: Cardiomegaly with atherosclerotic thoracic aorta and persistent small to moderate size rig ht and small left pleural effusions with associated bibasilar atelectasis and/or infiltrate are all r edemonstrated. Osseous structures are demineralized with underlying scoliosis redemonstrated. IMPRESSION: Overall stable findings from most recent x-ray, cardiomegaly with small to moderate righ t greater than left pleural effusions and associated bibasilar atelectasis and/or infiltrate are all redemonstrated.
[2019-10-26 11:47] LABS: Glucose,Whole Blood 342 mg/dL (75-99)
--- NOTE | 2019-10-26 12:47 | P.PN ---
Subjective Progress Note Date: 10/26/19 Principal diagnosis: , Acute hypoxic rest or a failure related to diastolic CHF exacerbation This is 79-year-old white female patient of Dr. Mills, with past medical history of chronic congestive heart failure with diastolic dysfunction, hypertension, diabetes mellitus type 2, chronic kidney disease stage III, previous history of TIA/CVA, anxiety disorder, chronic atrial fibrillation on Eliquis, patient had been on home oxygen previously, currently not requiring home oxygen. Patient also has moderately severe pulmonary hypertension, PA systolic of 56 monos of mercury as seen on previous echocardiogram. We had previously seen the patient in consultation back in May for acute exacerbation of diastolic CHF, and earlier in the month in May for small left apical pneumothorax. Patient's sister gives history of previous thoracentesis at [facility], but she is unsure of the dates, and the results of of the fluid analysis. On 10/25/2019 patient was brought into the emergency department per EMS from her home for evaluation of increasing shortness of breath. Patient was being treated on an outpatient basis for fluid on her lungs, with no improvement. Patient denied any chest pain, denied any palpitations, denied any fever or chills, no cough or congestion, no hemoptysis. Chest x-ray showed worsening bilateral pleural effusions moderate size pocket on the right and small pocket on the left. EKG showed sinus bradycardia, with right bundle branch block with T-wave inversion in inferolateral leads. Echocardiogram showed left ventricular systolic function preserved with an EF of 65-70%. Right ventricle was severely enlarged, trace amount of aortic regurgitation however could not rule out aortic valve leaflet. Mild mitral regurg and severe tricuspid regurg with mild pulmonary hypertension with right-sided pressures of 42 mmHg. Patient was started on IV diuretics, however she has been borderline hypotensive, and hydrocortisone and Florinef were added per attending physician. She has been on BiPAP support with pressures of 14/6 and FiO2 of 50%. Labs were reviewed showing white blood cell count of 4.4, hemoglobin 10.4, B1 of 71 and creatinine is 1.38, proBNP was 70,009 100, troponin 0.056. Urinalysis was negative for signs of infection. On 10/26/2019 patient seen in follow-up in the intensive care unit, she is off BiPAP currently, she did wear through the night, currently on 4 L of oxygen, she states her breathing continues to improve, feeling better, no worsening dyspnea, she continues on Lasix infusion at 10 mg per hour, she is only very -279 mL fluid balance, his labs have been reviewed, and there has been worsening of her renal function, with B1 up to 80 and creatinine of 2.11, white blood cell count is 3.8, hemoglobin is 8.6. but clinically she states she is breathing easier today, Eliquis has been on hold. lung sounds reveal bibasilar crackles. repeat chest x-ray showed stable findings cardiomegaly with small to moderate right greater than left pleural effusions. Objective - Vital Signs Vital signs: Vital Signs Temp 98.1 F 10/25/19 20:00 Pulse 50 L 10/26/19 07:55 Resp 16 10/26/19 03:40 BP 122/74 10/26/19 03:40 Pulse Ox 100 10/26/19 03:40 Intake & Output 10/25/19 10/26/19 10/26/19 18:59 06:59 18:59 Intake Total 180 90.5 Output Total 550 Balance 180 -459.5 Weight 65 kg 68.5 kg Intake: Intake, IV Titration 90.5 Amount Furosemide 100 mg In 90.5 Sodium Chloride 0.9% 90 ml @ 10 MG/HR 10 mls/hr IV .Q10H [facility] Rx#: [id number] Oral 180 Output: Urine 550 Other: Voiding Method Indwelling Catheter Indwelling Catheter - Exam GENERAL EXAM: Alert, very pleasant, 79-year-old white female patient, on 4 L., comfortable in no apparent distress. HEAD: Normocephalic/atraumatic. EYES: Normal reaction of pupils, equal size. Conjunctiva pink, sclera white. NOSE: Clear with pink turbinates. THROAT: No erythema or exudates. NECK: No masses, no JVD, no thyroid enlargement, no adenopathy. CHEST: No chest wall deformity. Symmetrical expansion. LUNGS: Equal air entry with bibasilar crackles, dementia breath sounds at the bases. wheeze, rhonchi or dullness. CVS: Regular rate and rhythm, normal S1 and S2, no gallops, no murmurs, no rubs ABDOMEN: Soft, nontender. No hepatosplenomegaly, normal bowel sounds, no guarding or rigidity. EXTREMITIES: No clubbing, mild pretibial edema, no cyanosis, 2+ pulses and upper and lower extremities. MUSCULOSKELETAL: Muscle strength and tone normal. SPINE: No scoliosis or deformity SKIN: No rashes CENTRAL NERVOUS SYSTEM: Alert and oriented -3. No focal deficits, tone is normal in all 4 extremities. PSYCHIATRIC: Alert and oriented -3. Appropriate affect. Intact judgment and insight. - Labs CBC & Chem 7: 10/26/19 06:21 10/26/19 06:21 Labs: Abnormal Lab Results - Last 24 Hours (Table) 10/25/19 10/25/19 10/25/19 Range/Units 11:59 16:41 21:48 RBC (3.80-5.40) m/uL Hgb (11.4-16.0) gm/dL Hct (34.0-46.0) % MCV (80.0-100.0) fL MCHC (31.0-37.0) g/dL RDW (11.5-15.5) % Lymphocytes # (1.0-4.8) k/uL Chloride (98-107) mmol/L Carbon Dioxide (22-30) mmol/L BUN (7-17) mg/dL Creatinine (0.52-1.04) mg/dL Glucose (74-99) mg/dL POC Glucose (mg/dL) 172 H 299 H 344 H (75-99) mg/dL Calcium (8.4-10.2) mg/dL Total Protein (6.3-8.2) g/dL Albumin (3.5-5.0) g/dL 10/26/19 10/26/19 10/26/19 Range/Units 06:21 06:21 06:55 RBC 2.78 L (3.80-5.40) m/uL Hgb 8.6 L (11.4-16.0) gm/dL Hct 28.5 L (34.0-46.0) % MCV 102.3 H (80.0-100.0) fL MCHC 30.4 L (31.0-37.0) g/dL RDW 19.5 H (11.5-15.5) % Lymphocytes # 0.3 L (1.0-4.8) k/uL Chloride 93 L (98-107) mmol/L Carbon Dioxide 39 H (22-30) mmol/L BUN 80 H (7-17) mg/dL Creatinine 2.11 H (0.52-1.04) mg/dL Glucose 189 H (74-99) mg/dL POC Glucose (mg/dL) 199 H (75-99) mg/dL Calcium 8.1 L (8.4-10.2) mg/dL Total Protein 5.2 L (6.3-8.2) g/dL Albumin 3.0 L (3.5-5.0) g/dL Assessment and Plan Plan: Assessment: #1. Acute on chronic hypoxic respiratory failure secondary to acute exacerbation of diastolic congestive heart failure #2. Bilateral pleural effusions, right greater than left, related to acute CHF exacerbation #3. History of paroxysmal atrial fibrillation on Eliquis #4. Chronic kidney disease stage III #5. History of TIA #'s. Hypertension #7. Seizure disorder #9. Generalized anxiety disorder Plan: Continue current medical treatment, patient remains on infusion of Lasix, she is been diuresing very modestly, although clinically she is states she is feeling better. The chest x-ray shows stable findings with right greater than left pleural effusions and adjacent atelectasis, Eliquis remains on hold, we will proceed with right-sided thoracentesis tomorrow. I performed a history & physical examination of the patient and discussed their management with my nurse practitioner, Amelia Springer. I reviewed the nurse practitioner's note and agree with the documented findings and plan of care. Lung sounds are positive for crackles at the bases. The findings and the impression was discussed with the patient. I attest to the documentation by the nurse practitioner. Time with Patient: Less than 30
--- NOTE | 2019-10-26 13:58 | P.PN ---
Subjective Progress Note Date: 10/26/19 This is a 79-year-old female patient of Dr. Mills with past medical history of chronic kidney disease stage III, atrial fibrillation, chronic hypoxic respiratory failure on 2 L home O2, diabetes mellitus type 2, history of TIA, hypertension, seizure disorder without any recent seizure activity, generalized anxiety disorder and recurrent depressionlast admitted 09/26/2019 for Hospital neuralgia, elevated troponin I ACS was ruled out, chronic anemia of chronic disease and generalized weakness secondary to E. coli UTI patient was sent in by the primary care physician for concern of shortness of breath that has worsened in the past few days. According to patient she has gained 30 poundsin the past month patient discharge rate is 58 kg and patient is currently 65 kg according to the ER rate. Chest x-ray was done that suggested bilateral pleural effusion worse on the on the right as compared to the left with bilateral basilar airspace disease. evaluation the lab patient had a hemoglobin of 10 and MCV 102, chloride 94 carbon dioxide 42, BUN 71 and creatinine 1.38, patient's baseline. Patient was started on Lasix drip and cardiology was consulted. Patient is currently on 4 L of oxygen saturating well. Does complain of shortness of breath associated with weakness but denies any chest pain palpitations. She has abdominal pain and bloating but denies any nausea or vomiting. 10/25: patient has been seen in the office and treated recently for anasarca for the past 3 weeks on Lasix and metolazone. She is also been treated for adrenal insufficiency and was started on Cortef. Patient denies any chest pain or shortness of breath, no dizziness at the time of this evaluation. Patient does not recall seen Dr. Gallardo yesterday in the emergency center. She has had a Fam catheter placed. Patient required nonrebreather is currently on high flow nasal cannula. Echocardiogram reveals EF 65-70%, severe concentric left ventricular hypertrophy, apical hypertrophic cardiomyopathy trace aortic regurgitation, cannot rule out vegetation on aortic valve, mild mitral regurgita tion, severe tricuspid regurgitation, mild pulmonary hypertension. Patient has been seen by cardiology and patient started on Lasix drip and zaroxolyn and aldactone. Chest ultrasound was done finding a right pleural effusion 7.7 cm and a left pleural effusion 1.6 cm. Pulmonary medicine is continuing diuretic therapy. Eliquis on hold for possible right-sided thoracentesis if shortness of breath worsens. 10/26 patient did have worsening shortness of breath overnight and has to be placed on BiPAP currently on 4 L of oxygen saturating at 100%. Patient is breathing better clinically. Urine output is still limited at 250 mL in 8 hours. ContinueLasix drip at 10. Aldactone continued at 25 mg twice a day Zaroxolyn discontinued yesterday. Continue with the high-dose hydrocortisone to 50 mg IV every 8 hours. Plan for possible thoracentesis tomorrow.labs reviewed hemoglobin stable at 8.6 slight increase in creatinine from 1.65-2.1 and increasing B UN 80. Glucose uncontrolled will increase Lantus to 22 units at bedtime Review of Systems Constitutional: Denies chills, Denies fever, Denies lethargy, Denies malaise, Denies poor appetite, endorses weakness, endorses weight gain Eyes: denies decreased vision, denies diplopia, denies discharge, denies pain Ears: deny: decreased hearing Ears, nose, mouth and throat: Denies dental pain, Denies headache, Denies nasal discharge, Denies nose pain Cardiovascular: Denies chest pain,endorses decreased exercise tolerance, Denies edema, Denies high blood pressure, Denies irregular heart beat, Denies palpitations, Denies paroxysmal nocturnal dyspnea, Denies rapid heart beat, endorsesshortness of breath Respiratory: Denies congestion, Denies cough, Denies cough with sputum, endorsesdyspnea, Denies home oxygen, Denies wheezing Gastrointestinal: Denies abdominal pain, Denies change in bowel habits, Denies coffee ground emesis, Denies early satiety, Denies excessive gas, Denies heartburn, Denies hematemesis, Denies hematochezia, Denies loss of appetite, Denies nausea, Denies vomiting Genitourinary: Denies dysuria, Denies flank pain, Denies kidney stones, Denies menorrhagia, Denies urgency, Denies urinary frequency Musculoskeletal: Denies gait dysfunction, Denies limitation of motion, Denies morning stiffness, Denies muscle cramps Integumentary: Denies rash, Denies wounds, Denies brittle nails, Denies change in hair/nails, Denies darkening of skin Neurological: Denies balance difficulties, Denies change in speech, Denies do uble vision, Denies gait dysfunction, Denies loss of vision, Denies motor disturbance, Denies numbness, Denies paralysis, Denies paresthesias, Denies seizures Psychiatric: Denies anxiety, Denies depression Endocrine: Denies excessive sweating, Denies excessive thirst, Denies high blood sugars, Denies palpitations Hematologic/Lymphatic: Denies easy bruising, Denies lymphadenopathy Objective - Vital Signs Vital signs: Vital Signs Temp 97.9 F 10/26/19 11:33 Pulse 56 L 10/26/19 11:33 Resp 16 10/26/19 11:33 BP 95/52 10/26/19 11:33 Pulse Ox 100 10/26/19 11:33 Intake & Output 10/25/19 10/26/19 10/26/19 18:59 06:59 18:59 Intake Total 180 90.5 817 Output Total 550 Balance 180 -459.5 817 Weight 65 kg 68.5 kg Intake: IV 15 .9 15 Intake, IV Titration 90.5 100 Amount Furosemide 100 mg In 90.5 100 Sodium Chloride 0.9% 90 ml @ 10 MG/HR 10 mls/hr IV .Q10H [facility] Rx#: [id number] Oral 180 702 Output: Urine 550 Other: Voiding Method Indwelling Catheter Indwelling Catheter Indwelling Catheter - Exam - Exam - Constitutional General appearance: cooperative, no acute distress, appropriate for age, sister at bedside - EENT Eyes: anicteric sclerae, PERRLA, normal appearance ENT: hearing grossly normal - Neck Neck: no lymphadenopathy, normal ROM, no other, no rigidity, no stridor, no thyromegaly - Respiratory Respiratory: bilateral: decreased air entry bilaterally with crackles at the bases no wheezing heard - Cardiovascular Rhythm: regular Heart sounds: normal: S1, S2 Abnormal Heart Sounds: 3/6 systolic murmur, no diastolic murmur, no rub, no S3 Gallop, no S4 Gallop, no click, no other - Gastrointestinal General gastrointestinal: normal bowel sounds, soft mild tender in the epigastric area bloating reduced, catheter in place - Integumentary Integumentary: no rash - Neurologic Neurologic: CNII-XII intact - Musculoskeletal Musculoskeletal: strength equal bilaterally - Psychiatric Psychiatric: A&O x's 3, appropriate affect - Labs CBC & Chem 7: 10/26/19 06:21 10/26/19 06:21 Labs: Abnormal Lab Results - Last 24 Hours (Table) 10/25/19 10/25/19 10/26/19 Range/Units 16:41 21:48 06:21 RBC 2.78 L (3.80-5.40) m/uL Hgb 8.6 L (11.4-16.0) gm/dL Hct 28.5 L (34.0-46.0) % MCV 102.3 H (80.0-100.0) fL MCHC 30.4 L (31.0-37.0) g/dL RDW 19.5 H (11.5-15.5) % Lymphocytes # 0.3 L (1.0-4.8) k/uL Chloride (98-107) mmol/L Carbon Dioxide (22-30) mmol/L BUN (7-17) mg/dL Creatinine (0.52-1.04) mg/dL Glucose (74-99) mg/dL POC Glucose (mg/dL) 299 H 344 H (75-99) mg/dL Calcium (8.4-10.2) mg/dL Total Protein (6.3-8.2) g/dL Albumin (3.5-5.0) g/dL 10/26/19 10/26/19 10/26/19 Range/Units 06:21 06:55 11:46 RBC (3.80-5.40) m/uL Hgb (11.4-16.0) gm/dL Hct (34.0-46.0) % MCV (80.0-100.0) fL MCHC (31.0-37.0) g/dL RDW (11.5-15.5) % Lymphocytes # (1.0-4.8) k/uL Chloride 93 L (98-107) mmol/L Carbon Dioxide 39 H (22-30) mmol/L BUN 80 H (7-17) mg/dL Creatinine 2.11 H (0.52-1.04) mg/dL Glucose 189 H (74-99) mg/dL POC Glucose (mg/dL) 199 H 342 H (75-99) mg/dL Calcium 8.1 L (8.4-10.2) mg/dL Total Protein 5.2 L (6.3-8.2) g/dL Albumin 3.0 L (3.5-5.0) g/dL Assessment and Plan Plan: 1. Acute on chronic hypoxic hypercarbic respiratory failuresecondary to bilateral pleural effusions and pulmonary edema, acute on chronic diastolic heart failure. Patient's been started on Lasix drip Zaroxolyn1 dose, Aldactone. cardiology and pulmonary medicine on consult. Echocardiogram as above. continue to monitor I&O and daily weights. 2. Abdominal pain secondary to constipation. 3. Anemia of chronic disease Stool for occult blood was negative in the last admission. Hemoglobin has been stable. Continue ferrous sulfate 325 mg twice daily. 4. Generalized weakness. PT and OT on consult. Plan for subacute rehab at discharge. 5. Diabetes mellitus type 2 uncontrolled with hyperglycemia. Continue Levemir 18 units at bedtime, NovoLog 8 units with breakfast and lunch and 5 units with supper, continue NovoLog scale before meals and at bedtime. 6. Hypertension. Continue Lasix drip, Aldactone. 7. Atrial fibrillation, paroxysmal. Eliquis 5 mg po BID on hold for possible thoracentesis. 8. Chronic kidney disease stage III. Avoid nephrotoxic agents, hold lisinopril, baseline creatinine 1.5 - 1.8. Continue sodium bicarb 651 g twice daily. 9. Generalized anxiety disorder and recurrent depression. Continue Xanax 0.25 mg twice daily as needed and Zoloft 50 mg daily. 10. 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 11. Constipation - continue senna- docuaste as need for cosntipation 12. Hypothyroidism. Continue levothyroxine 112 g daily. 13. Hyperlipidemia. Continue pravastatin 20 mg at bedtime. 14. Adrenal insufficiency. Discontinue Florinef andCortef. Patient placed on Solu-Cortef 50 milligrams IV every 8 hours. 15. GI prophylaxis and gastroesophageal reflux disease. Protonix twice daily and Carafate. 16. DVT prophylaxis. Eliquis currently on hold for possible thoracentesis. Discharge plan: [place] under the care of Dr. Mills
--- NOTE | 2019-10-26 14:36 | P.PN ---
Subjective Progress Note Date: 10/26/19 This is 79-year-old female with history of diastolic congestive heart failure, hypertension, diabetes, chronic kidney disease, prior TIA, anxiety disorder, chronic persistent atrial fibrillation with moderately severe pulmonary hypertension who presented to the hospital with difficulty in breathi ng.she was initiated on IV Lasix drip yesterday, she diuresed well through the night last night. patient seen and examined this morning, she is off the BiPAP, on 4 L of oxygen, states overall that she's feeling better.hemoglobin today 8.6, platelet count 182. Sodium 139, potassium 4.7, BUN 80, and creatinine 2.1.Crystal is currently on hold for possible thoracentesis. Objective - Vital Signs Vital signs: Vital Signs Temp 97.9 F 10/26/19 11:33 Pulse 56 L 10/26/19 11:33 Resp 16 10/26/19 11:33 BP 95/52 10/26/19 11:33 Pulse Ox 100 10/26/19 11:33 Intake & Output 10/25/19 10/26/19 10/26/19 18:59 06:59 18:59 Intake Total 180 90.5 817 Output Total 550 Balance 180 -459.5 817 Weight 65 kg 68.5 kg Intake: IV 15 .9 15 Intake, IV Titration 90.5 100 Amount Furosemide 100 mg In 90.5 100 Sodium Chloride 0.9% 90 ml @ 10 MG/HR 10 mls/hr IV .Q10H [facility] Rx#: [id number] Oral 180 702 Output: Urine 550 Other: Voiding Method Indwelling Catheter Indwelling Catheter Indwelling Catheter - Exam GENERAL EXAM: Alert, very pleasant, 79-year-old white female patient, on 4 L., comfortable in no apparent distress. HEAD: Normocephalic/atraumatic. EYES: Normal reaction of pupils, equal size. Conjunctiva pink, sclera white. NOSE: Clear with pink turbinates. THROAT: No erythema or exudates. NECK: No masses, no JVD, no thyroid enlargement, no adenopathy. CHEST: No chest wall deformity. Symmetrical expansion. LUNGS: Equal air entry with bibasilar crackles, dementia breath sounds at the bases. wheeze, rhonchi or dullness. CVS: Regular rate and rhythm, normal S1 and S2, no gallops, no murmurs, no rubs ABDOMEN: Soft, nontender. No hepatosplenomegaly, normal bowel sounds, no guarding or rigidity. EXTREMITIES: No clubbing, mild pretibial edema, no cyanosis, 2+ pulses and upper and lower extremities. MUSCULOSKELETAL: Muscle strength and tone normal. SPINE: No scoliosis or deformity SKIN: No rashes CENTRAL NERVOUS SYSTEM: Alert and oriented -3. No focal deficits, tone is normal in all 4 extremities. PSYCHIATRIC: Alert and oriented -3. Appropriate affect. Intact judgment and insight. - Labs CBC & Chem 7: 10/26/19 06:21 10/26/19 06:21 Labs: Abnormal Lab Results - Last 24 Hours (Table) 10/25/19 10/25/19 10/26/19 Range/Units 16:41 21:48 06:21 RBC 2.78 L (3.80-5.40) m/uL Hgb 8.6 L (11.4-16.0) gm/dL Hct 28.5 L (34.0-46.0) % MCV 102.3 H (80.0-100.0) fL MCHC 30.4 L (31.0-37.0) g/dL RDW 19.5 H (11.5-15.5) % Lymphocytes # 0.3 L (1.0-4.8) k/uL Chloride (98-107) mmol/L Carbon Dioxide (22-30) mmol/L BUN (7-17) mg/dL Creatinine (0.52-1.04) mg/dL Glucose (74-99) mg/dL POC Glucose (mg/dL) 299 H 344 H (75-99) mg/dL Calcium (8.4-10.2) mg/dL Total Protein (6.3-8.2) g/dL Albumin (3.5-5.0) g/dL 10/26/19 10/26/19 10/26/19 Range/Units 06:21 06:55 11:46 RBC (3.80-5.40) m/uL Hgb (11.4-16.0) gm/dL Hct (34.0-46.0) % MCV (80.0-100.0) fL MCHC (31.0-37.0) g/dL RDW (11.5-15.5) % Lymphocytes # (1.0-4.8) k/uL Chloride 93 L (98-107) mmol/L Carbon Dioxide 39 H (22-30) mmol/L BUN 80 H (7-17) mg/dL Creatinine 2.11 H (0.52-1.04) mg/dL Glucose 189 H (74-99) mg/dL POC Glucose (mg/dL) 199 H 342 H (75-99) mg/dL Calcium 8.1 L (8.4-10.2) mg/dL Total Protein 5.2 L (6.3-8.2) g/dL Albumin 3.0 L (3.5-5.0) g/dL Assessment and Plan Plan: Assessment: #1. Acute on chronic hypoxic respiratory failure secondary to acute exacerbation of diastolic congestive heart failure #2. Bilateral pleural effusions, right greater than left, related to acute CHF exacerbation #3. History of paroxysmal atrial fibrillation on Eliquis #4. Chronic kidney disease stage III #5. History of TIA #'s. Hypertension #7. Seizure disorder #9. Generalized anxiety disorder Plan We will decrease the Lasix drip to 5 mg per hour today. Continue to monitor intake and output along with daily weights and daily lytes BUN and creatinine. DNP note has been reviewed, I agree with a documented findings and plan of care. Patient was seen and examined.
[2019-10-26] MEDS: ACETAMINOPHEN TAB 325 MG TAB PO PRN ×2 (15:56→21:19)
[2019-10-26 17:01] LABS: Glucose,Whole Blood 423 mg/dL (75-99)
[2019-10-26] MEDS: PRAVASTATIN SODIUM 20 MG TAB PO SCH (17:11)
[2019-10-26] MEDS: MAGNESIUM OXIDE 400 MG TAB PO SCH (17:11)
[2019-10-26 20:36] LABS: Glucose,Whole Blood 594 mg/dL (75-99)
[2019-10-26] MEDS ORDERED: INSULIN DETEMIR (LEVEMIR) 100 UNIT/ML SYR SQ SCH (21:00)
[2019-10-26] MEDS: MELATONIN 5 MG TABLET PO SCH (21:19)
[2019-10-26 23:23] LABS: Glucose,Whole Blood 406 mg/dL (75-99)
[2019-10-27 06:19] LABS: Anisocytosis Slight; Basophils % (A) 0 %; Eosinophils % (A) 0 %; HCT 29.4 % (34.0-46.0); HGB 8.8 gm/dL (11.4-16.0); Hypochromasia Marked; Lymphocytes # (A) 0.3 k/uL (1.0-4.8); Lymphocytes % (A) 8 %; MCH 31.3 pg (25.0-35.0); MCHC 29.8 g/dL (31.0-37.0); MCV 105.3 fL (80.0-100.0); Mean Platelet Volume 8.5; Monocytes # (A) 0.2 k/uL (0-1.0); Monocytes % (A) 4 %; Neutrophils # (A) 3.6 k/uL (1.3-7.7); Neutrophils % (A) 86 %; Platelet Count 186 k/uL (150-450); WBC 4.2 k/uL (3.8-10.6)
[2019-10-27 06:22] LABS: Macrocytosis Marked
[2019-10-27 06:32] LABS: Albumin 3.1 g/dL (3.5-5.0); Calcium 8.2 mg/dL (8.4-10.2); Potassium 4.5 mmol/L (3.5-5.1); Total Bilirubin 0.4 mg/dL (0.2-1.3); Total Protein 5.5 g/dL (6.3-8.2)
[2019-10-27 06:35] LABS: Glucose,Whole Blood 252 mg/dL (75-99)
[2019-10-27] MEDS: LEVOTHYROXINE 112 MCG TAB PO SCH (06:51)
[2019-10-27] MEDS: INSULIN ASPART (NovoLOG) 100 UNIT/ML VIAL SQ SCH ×7 (06:52→21:13)
[2019-10-27] MEDS: FUROSEMIDE 100 MG in SODIUM CHLORIDE 0.9% 90 ML IV SCH ×2 (06:52→18:27)
[2019-10-27] MEDS: busPIRone HCl 10 MG TAB PO SCH ×2 (08:20→18:28)
[2019-10-27] MEDS: SERTRALINE 50 MG TAB PO SCH (08:20)
[2019-10-27] MEDS: GABAPENTIN 100 MG CAP PO SCH ×2 (08:20→21:13)
[2019-10-27] MEDS: HYDROCORTISONE SUCCINATE 100 MG/2 ML VIAL IV SCH ×3 (08:20→21:13)
[2019-10-27] MEDS: DIVALPROEX SPRINKLE 125 MG CAP.SPRINK PO SCH (08:20)
[2019-10-27] MEDS: FERROUS SULFATE 325 MG TAB PO SCH ×2 (08:21→18:28)
[2019-10-27] MEDS: SODIUM BICARBONATE TAB 650 MG TAB PO SCH ×2 (08:21→18:28)
[2019-10-27] MEDS: SPIRONOLACTONE 25 MG TAB PO SCH ×2 (08:21→21:13)
[2019-10-27] MEDS: DICLOFENAC SODIUM GEL 100 GM TUBE TOPICAL SCH ×4 (08:21→21:15)
[2019-10-27] MEDS: ALBUTEROL NEBULIZED 2.5 MG/3 ML INHALATION PRN ×3 (09:00→19:48)
[2019-10-27] MEDS: BUDESONIDE 1 MG/2 ML NEBU INHALATION PRN ×2 (09:00→19:48)
[2019-10-27] MEDS ORDERED: METOLAZONE 5 MG TAB PO STA (11:27)
[2019-10-27 11:47] LABS: Glucose,Whole Blood 307 mg/dL (75-99)
[2019-10-27] MEDS ORDERED: MORPHINE SULFATE 2 MG/ML SYRINGE IVP PRN (12:42)
--- NOTE | 2019-10-27 12:45 | PN ---
PROGRESS NOTE This patient is admitted with congestive cardiac failure. The patient has a bilateral pleural effusion. The patient has not been responding to the IV diuretics. Her creatinine keeps on going up. The patient has a severe degree of left ventricular hypertrophy and diastolic dysfunction. Urine output is only 300-400 mL per shift. Creatinine is 2.57. We will have a Nephrology consultation. I will increase the Lasix drip to 10 mg/hour and give her Zaroxolyn 5 mg today. MMODL / IJN: [id number] /
[2019-10-27] MEDS: ACETAMINOPHEN TAB 325 MG TAB PO PRN (12:47)
[2019-10-27] MEDS ORDERED: HEPARIN SODIUM,PORCINE 5,000 UNIT/ML 1 ML VIAL IV PRN (16:26)
[2019-10-27] MEDS ORDERED: HEPARIN SODIUM,PORCINE 5,000 UNIT/ML 1 ML VIAL IV ONE (16:26)
--- NOTE | 2019-10-27 16:26 | P.PN ---
Subjective Progress Note Date: 10/27/19 This is a 79-year-old female patient of Dr. Mills with past medical history of chronic kidney disease stage III, atrial fibrillation, chronic hypoxic respiratory failure on 2 L home O2, diabetes mellitus type 2, history of TIA, hypertension, seizure disorder without any recent seizure activity, generalized anxiety disorder and recurrent depressionlast admitted 09/26/2019 for Hospital neuralgia, elevated troponin I ACS was ruled out, chronic anemia of chronic disease and generalized weakness secondary to E. coli UTI patient was sent in by the primary care physician for concern of shortness of breath that has worsened in the past few days. According to patient she has gained 30 poundsin the past month patient discharge rate is 58 kg and patient is currently 65 kg according to the ER rate. Chest x-ray was done that suggested bilateral pleural effusion worse on the on the right as compared to the left with bilateral basilar airspace disease. evaluation the lab patient had a hemoglobin of 10 and MCV 102, chloride 94 carbon dioxide 42, BUN 71 and creatinine 1.38, patient's baseline. Patient was started on Lasix drip and cardiology was consulted. Patient is currently on 4 L of oxygen saturating well. Does complain of shortness of breath associated with weakness but denies any chest pain palpitations. She has abdominal pain and bloating but denies any nausea or vomiting. 10/25: patient has been seen in the office and treated recently for anasarca for the past 3 weeks on Lasix and metolazone. She is also been treated for adrenal insufficiency and was started on Cortef. Patient denies any chest pain or shortness of breath, no dizziness at the time of this evaluation. Patient does not recall seen Dr. Gallardo yesterday in the emergency center. She has had a Fam catheter placed. Patient required nonrebreather is currently on high flow nasal cannula. Echocardiogram reveals EF 65-70%, severe concentric left ventricular hypertrophy, apical hypertrophic cardiomyopathy trace aortic regurgitation, cannot rule out vegetation on aortic valve, mild mitral regurgita tion, severe tricuspid regurgitation, mild pulmonary hypertension. Patient has been seen by cardiology and patient started on Lasix drip and zaroxolyn and aldactone. Chest ultrasound was done finding a right pleural effusion 7.7 cm and a left pleural effusion 1.6 cm. Pulmonary medicine is continuing diuretic therapy. Eliquis on hold for possible right-sided thoracentesis if shortness of breath worsens. 10/26 patient did have worsening shortness of breath overnight and has to be placed on BiPAP currently on 4 L of oxygen saturating at 100%. Patient is breathing better clinically. Urine output is still limited at 250 mL in 8 hours. ContinueLasix drip at 10. Aldactone continued at 25 mg twice a day Zaroxolyn discontinued yesterday. Continue with the high-dose hydrocortisone to 50 mg IV every 8 hours. Plan for possible thoracentesis tomorrow.labs reviewed hemoglobin stable at 8.6 slight increase in creatinine from 1.65-2.1 and increasing B UN 80. Glucose uncontrolled will increase Lantus to 22 units at bedtime 10/27 patient is stable currently resting in her bed. Endorses shortness of breath and neck pain. Patient complains of significant neck pain and started on morphine 2 mg every 6 hours. Currently on Lasix 10 mg/h with plan to do thoracentesis.vitals are stable with temp of 97.9 blood pressure 136/71 currently on 4 L of high flow nasal cannula.creatinine stable at 2.4 with BUN 86 which showed blood sugars has been reading high from 2:30 to 594 patient has been eating cookies brought in by the family. Will increase Levemir to 30 units and increase (lispro with meals. We will decrease hydrocortisone to 50 twice a day Review of Systems Constitutional: Denies chills, Denies fever, Denies lethargy, Denies malaise, Denies poor appetite, endorses weakness, endorses weight gain Eyes: denies decreased vision, denies diplopia, denies discharge, denies pain Ears: deny: decreased hearing Ears, nose, mouth and throat: Denies dental pain, Denies headache, Denies nasal discharge, Denies nose pain Cardiovascular: Denies chest pain,endorses decreased exercise tolerance, Denies edema, Denies high blood pressure, Denies irregular heart beat, Denies palpitations, Denies paroxysmal nocturnal dyspnea, Denies rapid heart beat, endorsesshortness of breath Respiratory: Denies congestion, Denies cough, Denies cough with sputum, endorsesdyspnea, Denies home oxygen, Denies wheezing Gastrointestinal: Denies abdominal pain, Denies change in bowel habits, Denies coffee ground emesis, Denies early satiety, Denies excessive gas, Denies heartburn, Denies hematemesis, Denies hematochezia, Denies loss of appetite, Denies nausea, Denies vomiting Genitourinary: Denies dysuria, Denies flank pain, Denies kidney stones, Denies menorrhagia, Denies urgency, Denies urinary frequency Musculoskeletal: Denies gait dysfunction, Denies limitation of motion, Denies morning stiffness, Denies muscle crampsendorses neck pain Integumentary: Denies rash, Denies wounds, Denies brittle nails, Denies change in hair/nails, Denies darkening of skin Neurological: Denies balance difficulties, Denies change in speech, Denies double vision, Denies gait dysfunction, Denies loss of vision, Denies motor disturbance, Denies numbness, Denies paralysis, Denies paresthesias, Denies seizures Psychiatric: Denies anxiety, Denies depression Endocrine: Denies excessive sweating, Denies excessive thirst, Denies high blood sugars, Denies palpitations Hematologic/Lymphatic: Denies easy bruising, Denies lymphadenopathy Objective - Vital Signs Vital signs: Vital Signs Temp 97.9 F 10/27/19 11:10 Pulse 58 L 10/27/19 13:11 Resp 18 10/27/19 11:10 BP 136/71 10/27/19 11:10 Pulse Ox 100 10/27/19 11:10 Intake & Output 10/26/19 10/27/19 10/27/19 18:59 06:59 18:59 Intake Total 1039 100.833 238 Output Total 125 200 Balance 914 -99.167 238 Weight 68 kg Intake: IV 15 .9 15 Intake, IV Titration 100 100.833 Amount Furosemide 100 mg In 100 100.833 Sodium Chloride 0.9% 90 ml @ 5 MG/HR 5 mls/hr IV .Q20H [facility] Rx#:[id number] Oral 924 238 Output: Urine 125 200 Other: Voiding Method Indwelling Catheter Indwelling Catheter Indwelling Catheter - Exam - Exam - Constitutional General appearance: cooperative, no acute distress, appropriate for age, sister at bedside - EENT Eyes: anicteric sclerae, PERRLA, normal appearance ENT: hearing grossly normal - Neck Neck: no lymphadenopathy, normal ROM, no other, no rigidity, no stridor, no thyromegaly - Respiratory Respiratory: bilateral: decreased air entry bilaterally with crackles at the bases no wheezing heard - Cardiovascular Rhythm: regular Heart sounds: normal: S1, S2 Abnormal Heart Sounds: 3/6 systolic murmur, no diastolic murmur, no rub, no S3 Gallop, no S4 Gallop, no click, no other - Gastrointestinal General gastrointestinal: normal bowel sounds, soft mild tender in the epigastric area bloating reduced, catheter in place - Integumentary Integumentary: no rash - Neurologic Neurologic: CNII-XII intact - Musculoskeletal Musculoskeletal: strength equal bilaterally - Psychiatric Psychiatric: A&O x's 3, appropriate affect - Labs CBC & Chem 7: 10/27/19 05:45 10/27/19 05:45 Labs: Abnormal Lab Results - Last 24 Hours (Table) 10/26/19 10/26/19 10/26/19 Range/Units 17:00 20:34 23:21 RBC (3.80-5.40) m/uL Hgb (11.4-16.0) gm/dL Hct (34.0-46.0) % MCV (80.0-100.0) fL MCHC (31.0-37.0) g/dL RDW (11.5-15.5) % Lymphocytes # (1.0-4.8) k/uL Macrocytosis Chloride (98-107) mmol/L Carbon Dioxide (22-30) mmol/L BUN (7-17) mg/dL Creatinine (0.52-1.04) mg/dL Glucose (74-99) mg/dL POC Glucose (mg/dL) 423 H 594 H 406 H (75-99) mg/dL Calcium (8.4-10.2) mg/dL Total Protein (6.3-8.2) g/dL Albumin (3.5-5.0) g/dL 10/27/19 10/27/19 10/27/19 Range/Units 05:45 05:45 06:33 RBC 2.80 L (3.80-5.40) m/uL Hgb 8.8 L (11.4-16.0) gm/dL Hct 29.4 L (34.0-46.0) % MCV 105.3 H (80.0-100.0) fL MCHC 29.8 L (31.0-37.0) g/dL RDW 19.0 H (11.5-15.5) % Lymphocytes # 0.3 L (1.0-4.8) k/uL Macrocytosis Marked A Chloride 93 L (98-107) mmol/L Carbon Dioxide 38 H (22-30) mmol/L BUN 86 H (7-17) mg/dL Creatinine 2.40 H (0.52-1.04) mg/dL Glucose 232 H (74-99) mg/dL POC Glucose (mg/dL) 252 H (75-99) mg/dL Calcium 8.2 L (8.4-10.2) mg/dL Total Protein 5.5 L (6.3-8.2) g/dL Albumin 3.1 L (3.5-5.0) g/dL 10/27/19 Range/Units 11:45 RBC (3.80-5.40) m/uL Hgb (11.4-16.0) gm/dL Hct (34.0-46.0) % MCV (80.0-100.0) fL MCHC (31.0-37.0) g/dL RDW (11.5-15.5) % Lymphocytes # (1.0-4.8) k/uL Macrocytosis Chloride (98-107) mmol/L Carbon Dioxide (22-30) mmol/L BUN (7-17) mg/dL Creatinine (0.52-1.04) mg/dL Glucose (74-99) mg/dL POC Glucose (mg/dL) 307 H (75-99) mg/dL Calcium (8.4-10.2) mg/dL Total Protein (6.3-8.2) g/dL Albumin (3.5-5.0) g/dL Assessment and Plan Plan: 1. Acute on chronic hypoxic hypercarbic respiratory failuresecondary to bilateral pleural effusions and pulmonary edema, acute on chronic diastolic heart failure. on Lasix drip 10 mg/h, Zaroxolyn1 dose, Aldactone. cardiology and pulmonary medicine on consult. Echocardiogram as above. continue to monitor I&O and daily weights. 2. Abdominal pain secondary to constipation. 3. Anemia of chronic disease Stool for occult blood was negative in the last admission. Hemoglobin has been stable. Continue ferrous sulfate 325 mg twice daily. 4. Generalized weakness. PT and OT on consult. Plan for subacute rehab at discharge. 5. Diabetes mellitus type 2 uncontrolled with hyperglycemia. Continue Levemir 30 units at bedtime, NovoLog 15 units with breakfast and lunch and 10 units with supper, continue NovoLog scale before meals and at bedtime. 6. Hypertension. Continue Lasix drip, Aldactone. 7. Atrial fibrillation, paroxysmal. Eliquis 5 mg po BID on hold for possible thoracentesis. 8. Chronic kidney disease stage III. Avoid nephrotoxic agents, hold lisinopril, baseline creatinine 1.5 - 1.8. Continue sodium bicarb 651 g twice daily. 9. Generalized anxiety disorder and recurrent depression. Continue Xanax 0.25 mg twice daily as needed and Zoloft 50 mg daily. 10. 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 11. Constipation - continue senna- docuaste as need for constipation 12. Hypothyroidism. Continue levothyroxine 112 g daily. 13. Hyperlipidemia. Continue pravastatin 20 mg at bedtime. 14. Adrenal insufficiency. Discontinue Florinef andCortef. Patient placed on hydrocortisone 50 milligrams IV every 12 hours. 15. GI prophylaxis and gastroesophageal reflux disease. Protonix twice daily and Carafate. 16. DVT prophylaxis. Eliquis currently on hold for possible thoracentesis.start patient on heparin drip Discharge plan: [place] under the care of Dr. Mills
[2019-10-27] MEDS ORDERED: HEPARIN SOD,PORK IN 0.45% NACL 25,000 UNIT in 0.45% NACL 1 250ML.BAG IV SCH (16:30)
[2019-10-27 16:49] LABS: Glucose,Whole Blood 338 mg/dL (75-99)
[2019-10-27 17:28] LABS: Partial Thromboplastin Time 22.7 sec (22.0-30.0); Prothrombin Time 10.7 sec (9.0-12.0)
--- NOTE | 2019-10-27 17:48 | P.PN ---
Subjective Progress Note Date: 10/27/19 This is 79-year-old white female patient of Dr. Mills, with past medical history of chronic congestive heart failure with diastolic dysfunction, hypertension, diabetes mellitus type 2, chronic kidney disease stage III, previous history of TIA/CVA, anxiety disorder, chronic atrial fibrillation on Eliquis, patient had been on home oxygen previously, currently not requiring home oxygen. Patient also has moderately severe pulmonary hypertension, PA systolic of 56 monos of mercury as seen on previous echocardiogram. We had previously seen the patient in consultation back in May for acute exacerbation of diastolic CHF, and earlier in the month in May for small left apical pneumothorax. Patient's s ister gives history of previous thoracentesis at [facility], but she is unsure of the dates, and the results of of the fluid analysis. On 10/25/2019 patient was brought into the emergency department per EMS from her home for evaluation of increasing shortness of breath. Patient was being treated on an outpatient basis for fluid on her lungs, with no improvement. Patient denied any chest pain, denied any palpitations, denied any fever or chills, no cough or congestion, no hemoptysis. Chest x-ray showed worsening bilateral pleural effusions moderate size pocket on the right and small pocket on the left. EKG showed sinus bradycardia, with right bundle branch block with T-wave inversion in inferolateral leads. Echocardiogram showed left ventricular systolic function preserved with an EF of 65-70%. Right ventricle was severely enlarged, trace amount of aortic regurgitation however could not rule out aortic valve leaflet. Mild mitral regurg and severe tricuspid regurg with mild pulmonary hypertension with right-sided pressures of 42 mmHg. Patient was started on IV diuretics, however she has been borderline hypotensive, and hydrocortisone and Florinef were added per attending physician. She has been on BiPAP support with pressures of 14/6 and FiO2 of 50%. Labs were reviewed showing white blood cell count of 4.4, hemoglobin 10.4, B1 of 71 and creatinine is 1.38, proBNP was 70,009 100, troponin 0.056. Urinalysis was negative for signs of infection. On 10/26/2019 patient seen in follow-up in the intensive care unit, she is off BiPAP currently, she did wear through the night, currently on 4 L of oxygen, she states her breathing continues to improve, feeling better, no worsening dyspnea, she continues on Lasix infusion at 10 mg per hour, she is only very -279 mL fluid balance, his labs have been reviewed, and there has been worsening of her renal function, with B1 up to 80 and creatinine of 2.11, white blood cell count is 3.8, hemoglobin is 8.6. but clinically she states she is breathing easier today, Eliquis has been on hold. lung sounds reveal bibasilar crackles. repeat chest x-ray showed stable findings cardiomegaly with small to moderate right greater than left pleural effusions. on 10/27/2019 I'm seeing the patient for a follow-up. The patient is feeling well. She is on oxygen at 3 L per minute nasal cannula. She is off the BiPAP. She is producing urine output. I the patient was placed on a Lasix drip. Her creatinine is on the rise in soft to2.4 on today's evaluation. Based on that, I discontinuedthe Eliquis for 24 hours and I performed a bedside thoracentesis during which a total of 4 50 mL of turbid dark yellowish pleural fluid was aspirated from the right lung without any complications. The patient did well and the chest x-rays to follow. Otherwise, no new complaints. She has a Fam catheter in place patient remains negative fluid balance for now. No angina. No palpitations. Objective - Vital Signs Vital signs: Vital Signs Temp 97.3 F L 10/27/19 15:45 Pulse 58 L 10/27/19 15:45 Resp 18 10/27/19 15:45 BP 136/71 10/27/19 15:45 Pulse Ox 100 10/27/19 15:45 Intake & Output 10/26/19 10/27/19 10/27/19 18:59 06:59 18:59 Intake Total 1039 100.833 838 Output Total 125 200 Balance 914 -99.167 838 Weight 68 kg Intake: IV 15 .9 15 Intake, IV Titration 100 100.833 Amount Furosemide 100 mg In 100 100.833 Sodium Chloride 0.9% 90 ml @ 10 MG/HR 10 mls/hr IV .Q10H [facility] Rx#: [id number] Oral 924 838 Output: Urine 125 200 Other: Voiding Method Indwelling Catheter Indwelling Catheter Indwelling Catheter - Exam GENERAL EXAM: Alert, very pleasant, 79-year-old white female patient, on 3 L., comfortable in no apparent distress. HEAD: Normocephalic/atraumatic. EYES: Normal reaction of pupils, equal size. Conjunctiva pink, sclera white. NOSE: Clear with pink turbinates. THROAT: No erythema or exudates. NECK: No masses, no JVD, no thyroid enlargement, no adenopathy. CHEST: No chest wall deformity. Symmetrical expansion. LUNGS: Equal air entry with bibasilar crackles, dementia breath sounds at the bases. wheeze, rhonchi or dullness. CVS: Regular rate and rhythm, normal S1 and S2, no gallops, no murmurs, no rubs ABDOMEN: Soft, nontender. No hepatosplenomegaly, normal bowel sounds, no guarding or rigidity. EXTREMITIES: No clubbing, mild pretibial edema, no cyanosis, 2+ pulses and upper and lower extremities. MUSCULOSKELETAL: Muscle strength and tone normal. SPINE: No scoliosis or deformity SKIN: No rashes CENTRAL NERVOUS SYSTEM: Alert and oriented -3. No focal deficits, tone is normal in all 4 extremities. PSYCHIATRIC: Alert and oriented -3. Appropriate affect. Intact judgment and insight. - Labs CBC & Chem 7: 10/27/19 05:45 10/27/19 05:45 Labs: Abnormal Lab Results - Last 24 Hours (Table) 10/26/19 10/26/19 10/27/19 Range/Units 20:34 23:21 05:45 RBC 2.80 L (3.80-5.40) m/uL Hgb 8.8 L (11.4-16.0) gm/dL Hct 29.4 L (34.0-46.0) % MCV 105.3 H (80.0-100.0) fL MCHC 29.8 L (31.0-37.0) g/dL RDW 19.0 H (11.5-15.5) % Lymphocytes # 0.3 L (1.0-4.8) k/uL Macrocytosis Marked A Chloride (98-107) mmol/L Carbon Dioxide (22-30) mmol/L BUN (7-17) mg/dL Creatinine (0.52-1.04) mg/dL Glucose (74-99) mg/dL POC Glucose (mg/dL) 594 H 406 H (75-99) mg/dL Calcium (8.4-10.2) mg/dL Total Protein (6.3-8.2) g/dL Albumin (3.5-5.0) g/dL 10/27/19 10/27/19 10/27/19 Range/Units 05:45 06:33 11:45 RBC (3.80-5.40) m/uL Hgb (11.4-16.0) gm/dL Hct (34.0-46.0) % MCV (80.0-100.0) fL MCHC (31.0-37.0) g/dL RDW (11.5-15.5) % Lymphocytes # (1.0-4.8) k/uL Macrocytosis Chloride 93 L (98-107) mmol/L Carbon Dioxide 38 H (22-30) mmol/L BUN 86 H (7-17) mg/dL Creatinine 2.40 H (0.52-1.04) mg/dL Glucose 232 H (74-99) mg/dL POC Glucose (mg/dL) 252 H 307 H (75-99) mg/dL Calcium 8.2 L (8.4-10.2) mg/dL Total Protein 5.5 L (6.3-8.2) g/dL Albumin 3.1 L (3.5-5.0) g/dL 10/27/19 Range/Units 16:48 RBC (3.80-5.40) m/uL Hgb (11.4-16.0) gm/dL Hct (34.0-46.0) % MCV (80.0-100.0) fL MCHC (31.0-37.0) g/dL RDW (11.5-15.5) % Lymphocytes # (1.0-4.8) k/uL Macrocytosis Chloride (98-107) mmol/L Carbon Dioxide (22-30) mmol/L BUN (7-17) mg/dL Creatinine (0.52-1.04) mg/dL Glucose (74-99) mg/dL POC Glucose (mg/dL) 338 H (75-99) mg/dL Calcium (8.4-10.2) mg/dL Total Protein (6.3-8.2) g/dL Albumin (3.5-5.0) g/dL Assessment and Plan Plan: #1. Acute on chronic hypoxic respiratory failure secondary to acute exacerbation of diastolic congestive heart failure #2. Bilateral pleural effusions, right greater than left, related to acute CHF exacerbation, the patient is currently on a Lasix drip. The patient also had a thoracentesis of the bedside and the patient had a total of 4 50 mL of pleural fluid aspirated from the right lung. #3. History of paroxysmal atrial fibrillation on Eliquis #4. Chronic kidney disease stage IIIi wth a component of acute kidney injury above her chronic kidney disease in the creatinine is up to 2.4 #5. History of TIA #'s. Hypertension #7. Seizure disorder #9. Generalized anxiety disorder Plan: hold Lasix drip. Monitor renal function. Chest x-ray postthoracentesis. Send the pleural fluid for analysis. Clinically improving. I suggested getting the electrolytes tomorrow and decide on further diuretic treatment. Hold Lasix for tonight. Restart Eliquis Postthoracentesis. we'll continue to follow.
[2019-10-27] MEDS: MAGNESIUM OXIDE 400 MG TAB PO SCH (18:28)
[2019-10-27] MEDS: PRAVASTATIN SODIUM 20 MG TAB PO SCH (18:28)
--- NOTE | 2019-10-27 18:31 | XR ---
EXAMINATION TYPE: XR chest 1V portable DATE OF EXAM: 10/27/2019 COMPARISON: Yesterday HISTORY: Thoracentesis TECHNIQUE: Single view FINDINGS: Heart is enlarged. There is blunting of both costophrenic angles. There is no pneumothorax. There are chest leads. There is no gross heart failure. There is some mild atelectasis at the lung b ases. IMPRESSION: There is decrease in the right pleural effusion compared to yesterday. No change in the s mall left pleural effusion.
--- NOTE | 2019-10-27 19:43 | PCN ---
PROCEDURE NOTE PREOPERATIVE DIAGNOSIS: Right-sided pleural effusion. POSTOPERATIVE DIAGNOSIS: Right-sided pleural effusion. PROCEDURE: Thoracentesis. PROCEDURE DESCRIPTION: Time-out was completed verifying correct patient, procedure, site, positioning , and implant (s) or special equipment if applicable. Ultrasound guidance was used and appropriate fluid pocket was identified and marked. Patient was positioned, prepped and draped in usual sterile fashion. Lidocaine was used to anesthetize the area. A thoracentesis catheter was introduced into the pleural space and fluid was removed. Blood loss was none. No bedside complications or bleeding. No evidence of pneumothorax. A chest x-ray was ordered to evaluate for pneumothorax. Total Fluid Removed: 460 mL Color of Fluid: Dark, turbid, yellowish. MMODL / IJN: [id number] /
[2019-10-27 20:37] LABS: Glucose,Whole Blood 335 mg/dL (75-99)
[2019-10-27] MEDS ORDERED: INSULIN DETEMIR (LEVEMIR) 100 UNIT/ML SYR SQ SCH (21:00)
[2019-10-27] MEDS: APIXABAN 5 MG TAB PO SCH (21:13)
[2019-10-27] MEDS: MELATONIN 5 MG TABLET PO SCH (21:13)
[2019-10-28] MEDS: FUROSEMIDE 100 MG in SODIUM CHLORIDE 0.9% 90 ML IV SCH (00:20)
[2019-10-28 01:25] LABS: Appearance,BF Cloudy; Color,BF Yellow; Nucleated Cells, Body Fluid 7 /uL; RBC, Body Fluid 4500 /uL
[2019-10-28 06:37] LABS: Glucose,Whole Blood 180 mg/dL (75-99)
[2019-10-28] MEDS: INSULIN ASPART (NovoLOG) 100 UNIT/ML VIAL SQ SCH ×7 (06:54→20:54)
[2019-10-28] MEDS: LEVOTHYROXINE 112 MCG TAB PO SCH (06:54)
[2019-10-28] MEDS: ALBUTEROL NEBULIZED 2.5 MG/3 ML INHALATION PRN ×2 (08:01→15:31)
[2019-10-28 08:07] LABS: Calcium 8.3 mg/dL (8.4-10.2); Potassium 4.2 mmol/L (3.5-5.1)
[2019-10-28] MEDS: SODIUM BICARBONATE TAB 650 MG TAB PO SCH (08:29)
[2019-10-28] MEDS: FERROUS SULFATE 325 MG TAB PO SCH ×2 (08:29→16:32)
[2019-10-28] MEDS: SPIRONOLACTONE 25 MG TAB PO SCH ×2 (08:29→20:01)
[2019-10-28] MEDS: APIXABAN 5 MG TAB PO SCH ×2 (08:29→20:01)
[2019-10-28] MEDS: SERTRALINE 50 MG TAB PO SCH (08:29)
[2019-10-28] MEDS: busPIRone HCl 10 MG TAB PO SCH ×2 (08:29→16:32)
[2019-10-28] MEDS: GABAPENTIN 100 MG CAP PO SCH ×2 (08:29→20:01)
[2019-10-28] MEDS: DIVALPROEX SPRINKLE 125 MG CAP.SPRINK PO SCH (08:29)
[2019-10-28] MEDS: HYDROCORTISONE SUCCINATE 100 MG/2 ML VIAL IV SCH ×2 (08:30→20:02)
[2019-10-28 11:43] LABS: Glucose,Whole Blood 280 mg/dL (75-99)
[2019-10-28] MEDS: FUROSEMIDE 10 MG/ML 4 ML VIAL IV SCH ×2 (12:46→20:01)
--- NOTE | 2019-10-28 12:51 | P.NPCON ---
History of Present Illness - Reason for Consult acute renal failure, chronic renal failure - History of Present Illness Reason for consultation: Acute kidney injury on chronic kidney disease History of present illness: Patient is a 79-year-old female seen in consultation for acute kidney injury on chronic kidney disease. Patient has chronic kidney disease stage III with baseline creatinine fluctuating in the range of 1.3-2. Patient presented to the hospital on October 24 with dyspnea. She was noted to have pleural effusions. She was started on Lasix drip. Patient also underwent right-sided thoracentesis on October 27 with 460 mL removed. Patient's echocardiogram done this admission revealed ejection fraction of 65-70% with severe tricuspid regurgitation. overall her symptoms have improved. She denies any active chest pain or shortness of breath.patient has a Fam catheter in place. Urine output documented is 1.1 L in the last 24 hours. Bicarb is up to 41 today. Hemodynamically the patient is fairly stable. Patient has long-standing history of diabetes mellitus. No proteinuria noted on UA. Vital signs are stable. General: The patient appeared well nourished and normally developed. HEENT: Head exam is unremarkable. Neck is without jugular venous distension. LUNGS: Breath sounds decreased. HEART: Rate and Rhythm are regular. First and second heart sounds normal. No murmurs, rubs or gallops. ABDOMEN: Abdominal exam reveals normal bowel sounds. Non-tender and non-distended. No evidence of peritonitis. EXTREMITITES: 1+ edema in ankles. Past Medical History Past Medical History: Heart Failure, CVA/TIA, Diabetes Mellitus, Hypertension, Renal Disease Additional Past Medical History / Comment(s): TIAs 4 with previous TIA 18 months ago. Motor seizures left leg anemic, irregular heart beat; murmur, pneum History of Any Multi-Drug Resistant Organisms: None Reported Past Surgical History: Appendectomy, Hysterectomy, Orthopedic Surgery Additional Past Surgical History / Comment(s): left knee arthroscopy, cyst removal (pilonidal cyst) Past Anesthesia/Blood Transfusion Reactions: No Reported Reaction Past Psychological History: Anxiety Smoking Status: Never smoker Past Alcohol Use History: None Reported Past Drug Use History: None Reported - Past Family History Brother(s) Additional Family Medical History / Comment(s): The patient has 2 brothers and both are . One from aspiration pneumonia with history of stomach cancer. A second brother from melanoma. Father Family Medical History: Congestive Heart Failure (CHF) Additional Family Medical History / Comment(s): Father at age 65 from heart failure. Mother Family Medical History: Congestive Heart Failure (CHF) Additional Family Medical History / Comment(s): Mother at age 92 from heart failure and had previous history of coronary artery disease with several MIs. Sister(s) Family Medical History: Cancer Additional Family Medical History / Comment(s): The patient has 2 sisters. One is stage IV breast cancer survivor and history of diverticulitis. Second sister has many medical problems. Son(s) Family Medical History: Hypertension Medications and Allergies Home Medications Medication Instructions Recorded Confirmed Type Pravastatin Sodium [Pravachol] 20 mg PO DAILY@1700 04/23/14 10/24/19 History Acetaminophen Tab [Tylenol] 650 mg PO Q6H PRN 05/20/19 10/24/19 History Albuterol Nebulized [Ventolin 2.5 mg INHALATION RT-Q4H PRN 05/20/19 10/24/19 History Nebulized] Apixaban [Eliquis] 5 mg PO BID@0800,1700 05/20/19 10/24/19 History Budesonide 1 mg INHALATION RT-BID PRN 05/20/19 10/24/19 History Divalproex Sodium [Depakote 500 mg PO DAILY@0800 05/20/19 10/24/19 History Sprinkle] Ferrous Sulfate [Iron (65 MG 325 mg PO BID@0800,1700 05/20/19 10/24/19 History Elemental)] Levothyroxine Sodium 112 mcg PO DAILY@0600 05/20/19 10/24/19 History Lisinopril [Prinivil] 5 mg PO DAILY@0800 05/20/19 10/24/19 History Magnesium Oxide 400 mg PO DAILY@1700 05/20/19 10/24/19 History Melatonin 10 mg PO HS@2100 05/20/19 10/24/19 History Sertraline [Zoloft] 50 mg PO DAILY@0800 05/20/19 10/24/19 History Sucralfate [Carafate] 1 gm PO ACHS PRN 05/20/19 10/24/19 History Multivitamins, Thera [Multivitamin 1 tab PO DAILY@1700 09/23/19 10/24/19 History (formulary)] Cyanocobalamin (Vitamin B-12) 1,000 mcg PO DAILY@1700 09/26/19 10/24/19 History [Vitamin B-12] Diclofenac Sodium Gel [Voltaren 4 gm TOPICAL QID tube 09/29/19 10/24/19 Rx Gel] INSULIN ASPART (NovoLOG) [NovoLOG 5 unit SQ AC-SUPPER vial 09/29/19 10/24/19 Rx (formulary)] Aspirin 81 mg PO DAILY@1700 10/24/19 10/24/19 History Epoetin Stevan [Procrit] 10,000 unit IM FR 10/24/19 10/24/19 History Fludrocortisone Acetate 0.1 mg PO BID@0800,1700 10/24/19 10/24/19 History Furosemide [Lasix] 40 mg PO BID@0600,1400 10/24/19 10/24/19 History Gabapentin [Neurontin] 100 mg PO BID@0800,2100 10/24/19 10/24/19 History Hydrocortisone 10 mg PO DAILY@0800 10/24/19 10/24/19 History Hydrocortisone [Cortef] 5 mg PO HS@2130 10/24/19 10/24/19 History INSULIN ASPART (NovoLOG) [NovoLOG 8 unit SQ BID@0700,1100 10/24/19 10/24/19 History (formulary)] INSULIN ASPART (NovoLOG) [NovoLOG See Protocol SQ ACHS 10/24/19 10/24/19 History (formulary)] Insulin Detemir (Levemir) [Levemir] 18 unit SQ HS@2100 10/24/19 10/24/19 History Metolazone [Zaroxolyn] 2.5 mg PO DAILY@1400 10/24/19 10/24/19 History Propranolol LA [Inderal LA] 60 mg PO DAILY@0800 10/24/19 10/24/19 History Sennosides-Docusate Sodium 2 tab PO DAILY PRN 10/24/19 10/24/19 History [Senokot-S] Sodium Bicarbonate Tab 650 mg PO BID@0800,1700 10/24/19 10/24/19 History Spironolactone [Aldactone] 25 mg PO DAILY@0800 10/24/19 10/24/19 History busPIRone HCl [Buspar] 10 mg PO BID@0800,1700 10/24/19 10/24/19 History hydrALAZINE HCL [Apresoline] 25 mg PO BID@0800,1700 10/24/19 10/24/19 History Allergies Allergy/AdvReac Type Severity Reaction Status Date / Time doxycycline calcium Allergy Anaphylaxis Verified 10/24/19 13:20 [From Vibramycin] doxycycline hyclate Allergy Anaphylaxis Verified 10/24/19 13:20 [From Vibramycin] doxycycline monohydrate Allergy Anaphylaxis Verified 10/24/19 13:20 [From Vibramycin] erythromycin base Allergy Anaphylaxis Verified 10/24/19 13:20 Iodinated Contrast Media Allergy Anaphylaxis Verified 10/24/19 13:20 [Iodinated Contrast Media - IV Dye] Physical Exam Vitals: Vital Signs Temp Pulse Pulse Resp BP BP Pulse Ox 10/28/19 12:00 97.7 F 61 20 126/67 96 10/28/19 08:13 58 L 10/28/19 08:03 60 10/28/19 08:00 97.6 F 61 20 95/40 104/56 100 10/28/19 03:46 97.4 F L 57 L 18 162/87 100 10/27/19 23:39 98 F 68 18 104/53 99 10/27/19 21:15 97.7 F 64 18 117/58 100 10/27/19 20:08 56 L 10/27/19 19:49 56 L 10/27/19 15:45 97.3 F L 58 L 18 136/71 100 10/27/19 13:11 58 L 10/27/19 12:59 58 L Intake and Output 10/27/19 10/28/19 10/28/19 22:59 06:59 14:59 Intake Total 657.5 Output Total 600 525 Balance 57.5 -525 Intake: Intake, IV Titration 57.5 Amount Furosemide 100 mg In 57.5 Sodium Chloride 0.9% 90 ml @ 10 MG/HR 10 mls/hr IV .Q10H [facility] Rx#: [id number] Oral 600 Output: Urine 600 525 Other: Voiding Method Indwelling Catheter Indwelling Catheter Indwelling Catheter # Bowel Movements 1 1 Weight 68 kg Results - Lab Results Most recent lab results Calcium 8.3 mg/dL (8.4-10.2) L 10/28/19 07:13 Magnesium 2.8 mg/dL (1.6-2.3) H 10/24/19 12:19 10/27/19 05:45 10/28/19 07:13 Assessment and Plan Plan: assessment: 1. Acute kidney injury mostly prerenal secondary to cardiorenal syndrome.creatinine peaked at 2.4 this admission and is 2.01 today. 2. Chronic kidney disease stage III with baseline creatinine fluctuating in the range of 1.3-2. 3. Volume overload. Improving with diuresis. 4. Acute on chronic diastolic CHF with severe tricuspid regurgitation. 5. History of hypercalcemia. Currently stable. Patient could not afford Sensipar. 6. Metabolic alkalosis secondary to diuresis. 7. Insulin-dependent diabetes mellitus. Plan: Discontinue Lasix drip. Start IV Lasix 40 mg twice daily. Add Diamox 250 mg IV 2 doses. Discontinue oral sodium bicarbonate. Avoid nephrotoxins. Continue to monitor renal function and urine output. Repeat electrolytes in the morning. Thank you for the consultation. I will continue to follow the patient with you during her hospital stay.
--- NOTE | 2019-10-28 14:23 | P.PN ---
Subjective Progress Note Date: 10/28/19 This is 79-year-old white female patient of Dr. Mills, with past medical history of chronic congestive heart failure with diastolic dysfunction, hypertension, diabetes mellitus type 2, chronic kidney disease stage III, previous history of TIA/CVA, anxiety disorder, chronic atrial fibrillation on Eliquis, patient had been on home oxygen previously, currently not requiring home oxygen. Patient also has moderately severe pulmonary hypertension, PA systolic of 56 monos of mercury as seen on previous echocardiogram. We had previously seen the patient in consultation back in May for acute exacerbation of diastolic CHF, and earlier in the month in May for small left apical pneumothorax. Patient's s ister gives history of previous thoracentesis at [facility], but she is unsure of the dates, and the results of of the fluid analysis. On 10/25/2019 patient was brought into the emergency department per EMS from her home for evaluation of increasing shortness of breath. Patient was being treated on an outpatient basis for fluid on her lungs, with no improvement. Patient denied any chest pain, denied any palpitations, denied any fever or chills, no cough or congestion, no hemoptysis. Chest x-ray showed worsening bilateral pleural effusions moderate size pocket on the right and small pocket on the left. EKG showed sinus bradycardia, with right bundle branch block with T-wave inversion in inferolateral leads. Echocardiogram showed left ventricular systolic function preserved with an EF of 65-70%. Right ventricle was severely enlarged, trace amount of aortic regurgitation however could not rule out aortic valve leaflet. Mild mitral regurg and severe tricuspid regurg with mild pulmonary hypertension with right-sided pressures of 42 mmHg. Patient was started on IV diuretics, however she has been borderline hypotensive, and hydrocortisone and Florinef were added per attending physician. She has been on BiPAP support with pressures of 14/6 and FiO2 of 50%. Labs were reviewed showing white blood cell count of 4.4, hemoglobin 10.4, B1 of 71 and creatinine is 1.38, proBNP was 70,009 100, troponin 0.056. Urinalysis was negative for signs of infection. On 10/26/2019 patient seen in follow-up in the intensive care unit, she is off BiPAP currently, she did wear through the night, currently on 4 L of oxygen, she states her breathing continues to improve, feeling better, no worsening dyspnea, she continues on Lasix infusion at 10 mg per hour, she is only very -279 mL fluid balance, his labs have been reviewed, and there has been worsening of her renal function, with B1 up to 80 and creatinine of 2.11, white blood cell count is 3.8, hemoglobin is 8.6. but clinically she states she is breathing easier today, Eliquis has been on hold. lung sounds reveal bibasilar crackles. repeat chest x-ray showed stable findings cardiomegaly with small to moderate right greater than left pleural effusions. on 10/27/2019 I'm seeing the patient for a follow-up. The patient is feeling well. She is on oxygen at 3 L per minute nasal cannula. She is off the BiPAP. She is producing urine output. I the patient was placed on a Lasix drip. Her creatinine is on the rise in soft to2.4 on today's evaluation. Based on that, I discontinuedthe Eliquis for 24 hours and I performed a bedside thoracentesis during which a total of 4 50 mL of turbid dark yellowish pleural fluid was aspirated from the right lung without any complications. The patient did well and the chest x-rays to follow. Otherwise, no new complaints. She has a Fam catheter in place patient remains negative fluid balance for now. No angina. No palpitations. on 10/28/2019, the patient is post thoracentesis and I removed a total of 450 mL of pleural fluid from the right lung.the patient is feeling well. No new complaints. I took her off the IV Lasix knowing that the patient's creatinine was on the rise. Creatinine was up to 2. She was restarted back on Lasix 40 mg IV push every 12 hours patient was restarted also back on Eliquis. The procedure was done without any complication. Final fluid characteristics still pending for now in terms of transudate versus exudate patient on fluids. Fam catheter is in place. She is in a negative fluid balance. He is producing urine output. Renal function is improved compared to yesterday. No chest pain. No other complaints otherwise. She is off the BiPAP. She has no major edema in lower extremities at this point in time. Objective - Vital Signs Vital signs: Vital Signs Temp 97.7 F 10/28/19 12:00 Pulse 61 10/28/19 12:00 Resp 20 10/28/19 12:00 BP 126/67 10/28/19 12:00 Pulse Ox 96 10/28/19 12:00 Intake & Output 10/27/19 10/28/19 10/28/19 18:59 06:59 18:59 Intake Total 895.5 Output Total 1125 Balance 895.5 -1125 Weight 68 kg Intake: Intake, IV Titration 57.5 Amount Furosemide 100 mg In 57.5 Sodium Chloride 0.9% 90 ml @ 10 MG/HR 10 mls/hr IV .Q10H [facility] Rx#: [id number] Oral 838 Output: Urine 1125 Other: Voiding Method Indwelling Catheter Indwelling Catheter Indwelling Catheter # Bowel Movements 1 1 - Exam GENERAL EXAM: Alert, very pleasant, 79-year-old white female patient, on 3 L., comfortable in no apparent distress. HEAD: Normocephalic/atraumatic. EYES: Normal reaction of pupils, equal size. Conjunctiva pink, sclera white. NOSE: Clear with pink turbinates. THROAT: No erythema or exudates. NECK: No masses, no JVD, no thyroid enlargement, no adenopathy. CHEST: No chest wall deformity. Symmetrical expansion. LUNGS: Equal air entry with bibasilar crackles, dementia breath sounds at the bases. wheeze, rhonchi or dullness. CVS: Regular rate and rhythm, normal S1 and S2, no gallops, no murmurs, no rubs ABDOMEN: Soft, nontender. No hepatosplenomegaly, normal bowel sounds, no guarding or rigidity. EXTREMITIES: No clubbing, mild pretibial edema, no cyanosis, 2+ pulses and upper and lower extremities. MUSCULOSKELETAL: Muscle strength and tone normal. SPINE: No scoliosis or deformity SKIN: No rashes CENTRAL NERVOUS SYSTEM: Alert and oriented -3. No focal deficits, tone is normal in all 4 extremities. PSYCHIATRIC: Alert and oriented -3. Appropriate affect. Intact judgment and insight. - Labs CBC & Chem 7: 10/27/19 05:45 10/28/19 07:13 Labs: Abnormal Lab Results - Last 24 Hours (Table) 10/27/19 10/27/19 10/27/19 Range/Units 16:32 16:48 20:35 Chloride (98-107) mmol/L Carbon Dioxide (22-30) mmol/L BUN (7-17) mg/dL Creatinine (0.52-1.04) mg/dL Glucose (74-99) mg/dL POC Glucose (mg/dL) 338 H 335 H (75-99) mg/dL Calcium (8.4-10.2) mg/dL Vitamin B12 1102.0 H (200.0-944.0) pg/mL 10/28/19 10/28/19 10/28/19 Range/Units 06:36 07:13 11:42 Chloride 91 L (98-107) mmol/L Carbon Dioxide 41 H* (22-30) mmol/L BUN 85 H (7-17) mg/dL Creatinine 2.01 H (0.52-1.04) mg/dL Glucose 191 H (74-99) mg/dL POC Glucose (mg/dL) 180 H 280 H (75-99) mg/dL Calcium 8.3 L (8.4-10.2) mg/dL Vitamin B12 (200.0-944.0) pg/mL Microbiology - Last 24 Hours (Table) 10/27/19 17:45 Gram Stain - Preliminary Pleural Fluid Body Fluid Culture - Preliminary Assessment and Plan Plan: #1. Acute on chronic hypoxic respiratory failure secondary to acute exacerbation of diastolic congestive heart failure, still on IV Lasix and the patient underwent a thoracentesis of the right lung #2. Bilateral pleural effusions, right greater than left, related to acute CHF exacerbation, the patient is currently on a Lasix drip. The patient also had a thoracentesis of the bedside and the patient had a total of 4 50 mL of pleural fluid aspirated from the right lung. the final nature of the fluid in terms of transudate versus exudate is not back yet and this will be available hopefully within next 24-48 hours. The procedure was done without any complications. The patient is back on anticoagulation. #3. History of paroxysmal atrial fibrillation on Eliquis #4. Chronic kidney disease stage IIIi wth a component of acute kidney injury above her chronic kidney disease in the creatinine today is down to 2.0 and she was restarted back on Lasix. #5. History of TIA #'s. Hypertension #7. Seizure disorder #9. Generalized anxiety disorder Plan: Monitor renal function. . Send the pleural fluid for analysis. Clinically improving. Lasix was restarted by nephrology. Terms of her chest x-ray, x-ray findings are stable for now. There is no evidence of any significant pleural e ffusion on the right there is minimal on the left. I will suggest backing off on the diuretics. We'll continue to follow.
[2019-10-28] MEDS ORDERED: METOLAZONE 5 MG TAB PO ONE (14:45)
[2019-10-28 14:48] LABS: Anisocytosis Slight; HCT 31.3 % (34.0-46.0); HGB 9.5 gm/dL (11.4-16.0); Hypochromasia Marked; MCH 32.3 pg (25.0-35.0); MCHC 30.4 g/dL (31.0-37.0); MCV 106.1 fL (80.0-100.0); Macrocytosis Marked; Mean Platelet Volume 9.5; Platelet Count 194 k/uL (150-450); RBC 2.95 m/uL (3.80-5.40); RDW 18.7 % (11.5-15.5); WBC 5.5 k/uL (3.8-10.6)
[2019-10-28 15:01] LABS: Lymphocytes # (M) 0.33 k/uL (1.0-4.8); Monocytes # (M) 0.22 k/uL (0-1.0); Neutrophils # (M) 4.95 k/uL (1.3-7.7); Neutrophils % (M) 90 %; Nucleated Red Blood Cells 0 /100 WBC (0-0); Total Cells Counted 200
[2019-10-28 15:02] LABS: Poikilocytosis (M) Present; Polychromasia Present
--- NOTE | 2019-10-28 15:11 | P.PN ---
Subjective Progress Note Date: 10/28/19 This is a 79-year-old female patient of Dr. Mills with past medical history of chronic kidney disease stage III, atrial fibrillation, chronic hypoxic respiratory failure on 2 L home O2, diabetes mellitus type 2, history of TIA, hypertension, seizure disorder without any recent seizure activity, generalized anxiety disorder and recurrent depressionlast admitted 09/26/2019 for Hospital neuralgia, elevated troponin I ACS was ruled out, chronic anemia of chronic disease and generalized weakness secondary to E. coli UTI patient was sent in by the primary care physician for concern of shortness of breath that has worsened in the past few days. According to patient she has gained 30 poundsin the past month patient discharge rate is 58 kg and patient is currently 65 kg according to the ER rate. Chest x-ray was done that suggested bilateral pleural effusion worse on the on the right as compared to the left with bilateral basilar airspace disease. evaluation the lab patient had a hemoglobin of 10 and MCV 102, chloride 94 carbon dioxide 42, BUN 71 and creatinine 1.38, patient's baseline. Patient was started on Lasix drip and cardiology was consulted. Patient is currently on 4 L of oxygen saturating well. Does complain of shortness of breath associated with weakness but denies any chest pain palpitations. She has abdominal pain and bloating but denies any nausea or vomiting. 10/25: patient has been seen in the office and treated recently for anasarca for the past 3 weeks on Lasix and metolazone. She is also been treated for adrenal insufficiency and was started on Cortef. Patient denies any chest pain or shortness of breath, no dizziness at the time of this evaluation. Patient does not recall seen Dr. Gallardo yesterday in the emergency center. She has had a Fam catheter placed. Patient required nonrebreather is currently on high flow nasal cannula. Echocardiogram reveals EF 65-70%, severe concentric left ventricular hypertrophy, apical hypertrophic cardiomyopathy trace aortic regurgitation, cannot rule out vegetation on aortic valve, mild mitral regurgita tion, severe tricuspid regurgitation, mild pulmonary hypertension. Patient has been seen by cardiology and patient started on Lasix drip and zaroxolyn and aldactone. Chest ultrasound was done finding a right pleural effusion 7.7 cm and a left pleural effusion 1.6 cm. Pulmonary medicine is continuing diuretic therapy. Eliquis on hold for possible right-sided thoracentesis if shortness of breath worsens. 10/26 patient did have worsening shortness of breath overnight and has to be placed on BiPAP currently on 4 L of oxygen saturating at 100%. Patient is breathing better clinically. Urine output is still limited at 250 mL in 8 hours. ContinueLasix drip at 10. Aldactone continued at 25 mg twice a day Zaroxolyn discontinued yesterday. Continue with the high-dose hydrocortisone to 50 mg IV every 8 hours. Plan for possible thoracentesis tomorrow.labs reviewed hemoglobin stable at 8.6 slight increase in creatinine from 1.65-2.1 and increasing B UN 80. Glucose uncontrolled will increase Lantus to 22 units at bedtime 10/27 patient is stable currently resting in her bed. Endorses shortness of breath and neck pain. Patient complains of significant neck pain and started on morphine 2 mg every 6 hours. Currently on Lasix 10 mg/h with plan to do thoracentesis.vitals are stable with temp of 97.9 blood pressure 136/71 currently on 4 L of high flow nasal cannula.creatinine stable at 2.4 with BUN 86 which showed blood sugars has been reading high from 2:30 to 594 patient has been eating cookies brought in by the family. Will increase Levemir to 30 units and increase (lispro with meals. We will decrease hydrocortisone to 50 twice a day 10/28 patient examined bedside. Is comfortabledate of nasal cannula saturating well at 96%. Patient's vitals otherwise stable. She did underwent thoracentesis yesterday [id number] mL were removed. Pleural fluid analysis pending whether it is transudate or exudate. Pleural fluid was found to be loculated. Patient's Lasixdrip wasswitch to 40 IV twice a day. Blood sugars are still under control will have liver masses to 35 units and increase lispro with meals. Continue hydrocortisone 50 twice a day as patient's blood pressure is on the softer side.we will start patient on [id number] mg IV twice a day as patient continues to require diuresis. Possible plan to [facility] on Thursday Review of Systems Constitutional: Denies chills, Denies fever, Denies lethargy, Denies malaise, Denies poor appetite, endorses weakness, endorses weight gain Eyes: denies decreased vision, denies diplopia, denies discharge, denies pain Ears: deny: decreased hearing Ears, nose, mouth and throat: Denies dental pain, Denies headache, Denies nasal discharge, Denies nose pain Cardiovascular: Denies chest pain,endorses decreased exercise tolerance, Denies edema, Denies high blood pressure, Denies irregular heart beat, Denies palpitations, Denies paroxysmal nocturnal dyspnea, Denies rapid heart beat, endorsesshortness of breath Respiratory: Denies congestion, Denies cough, Denies cough with sputum, endorses dyspnea, Denies home oxygen, Denies wheezing Gastrointestinal: Denies abdominal pain, Denies change in bowel habits, Denies coffee ground emesis, Denies early satiety, Denies excessive gas, Denies heartburn, Denies hematemesis, Denies hematochezia, Denies loss of appetite, Denies nausea, Denies vomiting Genitourinary: Denies dysuria, Denies flank pain, Denies kidney stones, Denies menorrhagia, Denies urgency, Denies urinary frequency Musculoskeletal: Denies gait dysfunction, Denies limitation of motion, Denies morning stiffness, Denies muscle crampsendorses neck pain Integumentary: Denies rash, Denies wounds, Denies brittle nails, Denies change in hair/nails, Denies darkening of skin Neurological: Denies balance difficulties, Denies change in speech, Denies double vision, Denies gait dysfunction, Denies loss of vision, Denies motor disturbance, Denies numbness, Denies paralysis, Denies paresthesias, Denies seizures Psychiatric: Denies anxiety, Denies depression Endocrine: Denies excessive sweating, Denies excessive thirst, Denies high blood sugars, Denies palpitations Hematologic/Lymphatic: Denies easy bruising, Denies lymphadenopathy Objective - Vital Signs Vital signs: Vital Signs Temp 97.7 F 10/28/19 12:00 Pulse 61 10/28/19 12:00 Resp 20 10/28/19 12:00 BP 126/67 10/28/19 12:00 Pulse Ox 96 10/28/19 12:00 Intake & Output 10/27/19 10/28/19 10/28/19 18:59 06:59 18:59 Intake Total 895.5 200 Output Total 1125 Balance 895.5 -1125 200 Weight 68 kg Intake: Intake, IV Titration 57.5 Amount Furosemide 100 mg In 57.5 Sodium Chloride 0.9% 90 ml @ 10 MG/HR 10 mls/hr IV .Q10H [facility] Rx#: [id number] Oral 838 200 Output: Urine 1125 Other: Voiding Method Indwelling Catheter Indwelling Catheter Indwelling Catheter # Bowel Movements 1 1 - Exam - Exam - Constitutional General appearance: cooperative, no acute distress, appropriate for age, sister at bedside - EENT Eyes: anicteric sclerae, PERRLA, normal appearance ENT: hearing grossly normal - Neck Neck: no lymphadenopathy, normal ROM, no other, no rigidity, no stridor, no thyromegaly - Respiratory Respiratory: bilateral: decreased air entry bilaterally with crackles at the b ases no wheezing heard - Cardiovascular Rhythm: regular Heart sounds: normal: S1, S2 Abnormal Heart Sounds: 3/6 systolic murmur, no diastolic murmur, no rub, no S3 Gallop, no S4 Gallop, no click, no other - Gastrointestinal General gastrointestinal: normal bowel sounds, soft mild tender in the epi gastric area bloating reduced, catheter in place - Integumentary Integumentary: no rash - Neurologic Neurologic: CNII-XII intact - Musculoskeletal Musculoskeletal: strength equal bilaterally - Psychiatric Psychiatric: A&O x's 3, appropriate affect - Labs CBC & Chem 7: 10/28/19 10:29 10/28/19 07:13 Labs: Abnormal Lab Results - Last 24 Hours (Table) 10/27/19 10/27/19 10/27/19 Range/Units 16:32 16:48 20:35 RBC (3.80-5.40) m/uL Hgb (11.4-16.0) gm/dL Hct (34.0-46.0) % MCV (80.0-100.0) fL MCHC (31.0-37.0) g/dL RDW (11.5-15.5) % Macrocytosis Chloride (98-107) mmol/L Carbon Dioxide (22-30) mmol/L BUN (7-17) mg/dL Creatinine (0.52-1.04) mg/dL Glucose (74-99) mg/dL POC Glucose (mg/dL) 338 H 335 H (75-99) mg/dL Calcium (8.4-10.2) mg/dL Vitamin B12 1102.0 H (200.0-944.0) pg/mL 10/28/19 10/28/19 10/28/19 Range/Units 06:36 07:13 10:29 RBC 2.95 L (3.80-5.40) m/uL Hgb 9.5 L (11.4-16.0) gm/dL Hct 31.3 L (34.0-46.0) % MCV 106.1 H (80.0-100.0) fL MCHC 30.4 L (31.0-37.0) g/dL RDW 18.7 H (11.5-15.5) % Macrocytosis Marked A Chloride 91 L (98-107) mmol/L Carbon Dioxide 41 H* (22-30) mmol/L BUN 85 H (7-17) mg/dL Creatinine 2.01 H (0.52-1.04) mg/dL Glucose 191 H (74-99) mg/dL POC Glucose (mg/dL) 180 H (75-99) mg/dL Calcium 8.3 L (8.4-10.2) mg/dL Vitamin B12 (200.0-944.0) pg/mL 10/28/19 Range/Units 11:42 RBC (3.80-5.40) m/uL Hgb (11.4-16.0) gm/dL Hct (34.0-46.0) % MCV (80.0-100.0) fL MCHC (31.0-37.0) g/dL RDW (11.5-15.5) % Macrocytosis Chloride (98-107) mmol/L Carbon Dioxide (22-30) mmol/L BUN (7-17) mg/dL Creatinine (0.52-1.04) mg/dL Glucose (74-99) mg/dL POC Glucose (mg/dL) 280 H (75-99) mg/dL Calcium (8.4-10.2) mg/dL Vitamin B12 (200.0-944.0) pg/mL Microbiology - Last 24 Hours (Table) 10/27/19 17:45 Gram Stain - Preliminary Pleural Fluid Body Fluid Culture - Preliminary Assessment and Plan Plan: 1. Acute on chronic hypoxic hypercarbic respiratory failuresecondary to bilateral pleural effusions and pulmonary edema, acute on chronic diastolic heart failure. onLasix 40 IV twice a day Lasix drip discontinued, Zaroxolyn1 dose, Aldactone. cardiology and pulmonary medicine on consult. Echocardiogram as above. continue to monitor I&O and daily weights. status post thoracentesis on 10/27 with removal of 450 mL of fluid. Pleural fluid analysis pending 2. Abdominal pain secondary to constipation. 3. Anemia of chronic disease Stool for occult blood was negative in the last admission. Hemoglobin has been stable. Continue ferrous sulfate 325 mg twice daily. 4. Generalized weakness. PT and OT on consult. Plan for subacute rehab at discharge. 5. Diabetes mellitus type 2 uncontrolled with hyperglycemia. Continue Levemir 30 units at bedtime, NovoLog 15 units with breakfast and lunch and 10 units with supper, continue NovoLog scale before meals and at bedtime. 6. Hypertension. Lasix 40 IV twice a day, Aldactone. 7. Atrial fibrillation, paroxysmal. Eliquis 5 mg po BID resumed 8. Chronic kidney disease stage III. Avoid nephrotoxic agents, hold lisinopril, baseline creatinine 1.5 - 1.8. Continue sodium bicarb 651 g twice daily. 9. Generalized anxiety disorder and recurrent depression. Continue Xanax 0.25 mg twice daily as needed and Zoloft 50 mg daily. 10. 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 11. Constipation - continue senna- docuaste as need for constipation 12. Hypothyroidism. Continue levothyroxine 112 g daily. 13. Hyperlipidemia. Continue pravastatin 20 mg at bedtime. 14. Adrenal insufficiency. Discontinue Florinef andCortef. Patient placed on hydrocortisone 50 milligrams IV every 12 hours. 15. GI prophylaxis and gastroesophageal reflux disease. Protonix twice daily and Carafate. 16. DVT prophylaxis. resume liquids 17 metabolic alkalosis secondary to diuresis acetazolamide started at 250 IV twice a day Discharge plan: [place] under the care of Dr. Mills
--- NOTE | 2019-10-28 16:02 | PN ---
PROGRESS NOTE This patient is an admitted with congestive cardiac failure. The patient received one dose of Zaroxolyn yesterday. She had good urine output. She is feeling better. The patient had about 500 mL of fluid removed from the pleural cavity. She is comfortable. Blood pressure is 126/67 mmHg. Heart rate is 60 per minute. First and second heart sounds are heard. Lungs reveal bilateral diminished air entry. Patient's creatinine is 2.10. We will give her Zaroxolyn 5 mg today and continue Lasix 40 mg IV q.12 hourly. Patient's overall long-term prognosis is guarded. MMODL / IJN: [id number] /
[2019-10-28] MEDS: DICLOFENAC SODIUM GEL 100 GM TUBE TOPICAL SCH ×4 (16:31→20:56)
[2019-10-28] MEDS: PRAVASTATIN SODIUM 20 MG TAB PO SCH (16:32)
[2019-10-28] MEDS: MAGNESIUM OXIDE 400 MG TAB PO SCH (16:32)
[2019-10-28 17:11] LABS: Glucose,Whole Blood 198 mg/dL (75-99)
[2019-10-28] MEDS: BUDESONIDE 1 MG/2 ML NEBU INHALATION PRN (19:30)
[2019-10-28] MEDS: MELATONIN 5 MG TABLET PO SCH (20:01)
[2019-10-28 20:24] LABS: Glucose,Whole Blood 322 mg/dL (75-99)
[2019-10-28] MEDS: ACETAMINOPHEN TAB 325 MG TAB PO PRN (20:45)
[2019-10-28] MEDS: INSULIN DETEMIR (LEVEMIR) 100 UNIT/ML SYR SQ SCH (20:51)
[2019-10-29] MEDS: LEVOTHYROXINE 112 MCG TAB PO SCH (05:39)
[2019-10-29 06:21] LABS: Glucose,Whole Blood 215 mg/dL (75-99)
[2019-10-29 06:53] LABS: Glucose,Whole Blood 198 mg/dL (75-99)
[2019-10-29 06:55] LABS: Calcium 8.3 mg/dL (8.4-10.2); Potassium 3.5 mmol/L (3.5-5.1)
[2019-10-29] MEDS: INSULIN ASPART (NovoLOG) 100 UNIT/ML VIAL SQ SCH ×7 (07:08→20:47)
[2019-10-29] MEDS: ALBUTEROL NEBULIZED 2.5 MG/3 ML INHALATION PRN (07:53)
[2019-10-29] MEDS: BUDESONIDE 1 MG/2 ML NEBU INHALATION PRN (07:53)
[2019-10-29] MEDS: SERTRALINE 50 MG TAB PO SCH (08:09)
[2019-10-29] MEDS: DIVALPROEX SPRINKLE 125 MG CAP.SPRINK PO SCH (08:09)
[2019-10-29] MEDS: APIXABAN 5 MG TAB PO SCH ×2 (08:09→20:48)
[2019-10-29] MEDS: SPIRONOLACTONE 25 MG TAB PO SCH (08:09)
[2019-10-29] MEDS: GABAPENTIN 100 MG CAP PO SCH ×2 (08:09→20:48)
[2019-10-29] MEDS: busPIRone HCl 10 MG TAB PO SCH ×2 (08:09→16:34)
[2019-10-29] MEDS: FERROUS SULFATE 325 MG TAB PO SCH ×2 (08:09→16:34)
[2019-10-29] MEDS: HYDROCORTISONE SUCCINATE 100 MG/2 ML VIAL IV SCH ×2 (08:10→20:48)
[2019-10-29] MEDS: DICLOFENAC SODIUM GEL 100 GM TUBE TOPICAL SCH ×4 (08:10→20:49)
[2019-10-29] MEDS: FUROSEMIDE 10 MG/ML 4 ML VIAL IV SCH (08:13)
--- NOTE | 2019-10-29 08:26 | P.PN ---
Subjective Progress Note Date: 10/29/19 Principal diagnosis: Tammi is feeling better since admission. She was being diuresed vigorously but because of metabolic alkalosis and acute kidney injury Lasix was reduced. She has responded with improvement in creatinine. Complains of postural dizziness she has a good appetite denies any chest pain fever chills no cough. She is able to walk with physiotherapy. Currently she is on Lasix 40 twice a day intravenously. She was also started on Diamox because of the metabolic alkalosis. She has anemia and looks somewhat pale History of present illness: Patient is a 79-year-old female seen in consultation for acute kidney injury on chronic kidney disease. Patient has chronic kidney disease stage III with baseline creatinine fluctuating in the range of 1.3-2. Patient presented to the hospital on October 24 with dyspnea. She was noted to have pleural effusions. She was started on Lasix drip. Patient also underwent right-sided thoracentesis on October 27 with 460 mL removed. Patient's echocardiogram done this admission revealed ejection fraction of 65-70% with severe tricuspid regurgitation. overall her symptoms have improved. She denies any active chest pain or shortness of breath.patient has a Fam catheter in place. Urine output documented is 1.1 L in the last 24 hours. Bicarb is up to 41 today. Hemodynamically the patient is fairly stable. Patient has long-standing history of diabetes mellitus. No proteinuria noted on UA. Objective - Vital Signs Vital signs: Vital Signs Temp 97.4 F L 10/29/19 08:00 Pulse 64 10/29/19 08:08 Resp 20 10/29/19 08:00 BP 129/60 10/29/19 08:00 Pulse Ox 100 10/29/19 08:00 Intake & Output 10/28/19 10/29/19 10/29/19 18:59 06:59 18:59 Intake Total 422 Output Total 540 300 Balance 422 -540 -300 Weight 68.2 kg Intake: Oral 422 Output: Urine 540 300 Other: Voiding Method Indwelling Catheter Indwelling Catheter # Bowel Movements 1 Vital signs are stable. General: The patient appeared well nourished and normally developed. HEENT: Head exam is unremarkable. 8 cm jugular venous distension. LUNGS: Occasional crackles more on the right than on the left. Good air entry, no wheezing HEART: Rate and Rhythm are regular. First and second heart sounds normal. No mu rmurs, rubs or gallops. ABDOMEN: Abdominal exam reveals normal bowel sounds. Non-tender and non-dis tended. No evidence of peritonitis. EXTREMITITES: 1+ edema in ankles. Neurologically awake alert and oriented but generalized weakness - Labs CBC & Chem 7: 10/28/19 10:29 10/29/19 06:30 Labs: Abnormal Lab Results - Last 24 Hours (Table) 10/28/19 10/28/19 10/28/19 Range/Units 07:13 10:29 11:42 RBC 2.95 L (3.80-5.40) m/uL Hgb 9.5 L (11.4-16.0) gm/dL Hct 31.3 L (34.0-46.0) % MCV 106.1 H (80.0-100.0) fL MCHC 30.4 L (31.0-37.0) g/dL RDW 18.7 H (11.5-15.5) % Lymphocytes # (Manual) 0.33 L (1.0-4.8) k/uL Macrocytosis Marked A Chloride 91 L (98-107) mmol/L Carbon Dioxide 41 H* (22-30) mmol/L BUN 85 H (7-17) mg/dL Creatinine 2.01 H (0.52-1.04) mg/dL Glucose 191 H (74-99) mg/dL POC Glucose (mg/dL) 280 H (75-99) mg/dL Calcium 8.3 L (8.4-10.2) mg/dL Magnesium (1.6-2.3) mg/dL 10/28/19 10/28/19 10/29/19 Range/Units 17:10 20:23 06:17 RBC (3.80-5.40) m/uL Hgb (11.4-16.0) gm/dL Hct (34.0-46.0) % MCV (80.0-100.0) fL MCHC (31.0-37.0) g/dL RDW (11.5-15.5) % Lymphocytes # (Manual) (1.0-4.8) k/uL Macrocytosis Chloride (98-107) mmol/L Carbon Dioxide (22-30) mmol/L BUN (7-17) mg/dL Creatinine (0.52-1.04) mg/dL Glucose (74-99) mg/dL POC Glucose (mg/dL) 198 H 322 H 215 H (75-99) mg/dL Calcium (8.4-10.2) mg/dL Magnesium (1.6-2.3) mg/dL 10/29/19 10/29/19 Range/Units 06:30 06:51 RBC (3.80-5.40) m/uL Hgb (11.4-16.0) gm/dL Hct (34.0-46.0) % MCV (80.0-100.0) fL MCHC (31.0-37.0) g/dL RDW (11.5-15.5) % Lymphocytes # (Manual) (1.0-4.8) k/uL Macrocytosis Chloride 91 L (98-107) mmol/L Carbon Dioxide 42 H* (22-30) mmol/L BUN 82 H (7-17) mg/dL Creatinine 1.95 H (0.52-1.04) mg/dL Glucose 200 H (74-99) mg/dL POC Glucose (mg/dL) 198 H (75-99) mg/dL Calcium 8.3 L (8.4-10.2) mg/dL Magnesium 3.0 H (1.6-2.3) mg/dL Microbiology - Last 24 Hours (Table) 10/27/19 17:45 Gram Stain - Preliminary Pleural Fluid Body Fluid Culture - Preliminary Assessment and Plan Assessment: assessment: 1. Acute kidney injury mostly prerenal secondary to cardiorenal syndrome.creatinine peaked at 2.4 this admission and is 1.95 as of today 2. Chronic kidney disease stage III secondary to nephrosclerosis with baseline creatinine fluctuating in the range of 1.3-2. 3. Volume overload. Improving with diuresis. Chest x-ray shows improvement no pulmonary edema, decreased right pleural effusion and tiny left effusion. Orthostatic changes 4. Acute on chronic diastolic CHF with severe tricuspid regurgitation. 5. History of hypercalcemia. Currently stable. Patient could not afford Sensipar. 6. Metabolic alkalosis secondary to diuresis. On Diamox bicarb continues to go up from 41-42 7. Insulin-dependent diabetes mellitus. Not controlled well Recommendation 1. Hold Lasix. Hold metolazone. Hold spironolactone. We will resume tomorrow at Lasix 20 by mouth twice a day 2. Check iron saturation 3. orthostatic changes being checked 4. Check labs tomorrow
[2019-10-29 12:17] LABS: Glucose,Whole Blood 212 mg/dL (75-99)
--- NOTE | 2019-10-29 12:55 | P.PN ---
Subjective This is a pleasant 79-year-old female past medical history significant for chronic diastolic heart failure, paroxysmal atrial fibrillation, diabetes mellitus, chronic kidney disease, TIA, hypertension and history of TIA. She is seen and examined sitting up in bed in no acute distress. Diuretic therapy currently on hold per nephrology. She denies chest pain, dizziness or palpitations. Blood pressure 118/50 564 afebrile maintaining oxygen saturation on nasal cannula. A battery data reviewed, WBC 140, potassium 3.5, carbon dioxide 42, creatinine 1.95, magnesium 3. GENERAL: Well-appearing, well-nourished and in no acute distress. NECK: Supple without JVD or thyromegaly. LUNGS: Bibasilar rales, diminished, no wheezes or rhonchi. Respirations equal and unlabored. HEART: Regular rate and rhythm without murmurs, rubs or gallops. S1 and S2 heard. EXTREMITIES: Normal range of motion, no edema. No clubbing or cyanosis. Peripheral pulses intact. ASSESSMENT Acute on chronic diastolic heart failure Bilateral pleural effusions status post thoracentesis Chronic kidney disease Paroxysmal atrial fibrillation Diabetes mellitus Hypertension Hypermagnesemia Tricuspid regurgitation Pulmonary hypertension PLAN Hold oral magnesium. Diuretic management per nephrology. Nurse Practitioner note has been reviewed, I agree with a documented findings and plan of care. Patient was seen and examined. Objective - Vital Signs Vital signs: Vital Signs Temp 97.4 F L 10/29/19 08:00 Pulse 91 10/29/19 08:28 Resp 20 10/29/19 08:00 BP 120/58 10/29/19 08:28 Pulse Ox 100 10/29/19 08:00 Intake & Output 10/28/19 10/29/19 10/29/19 18:59 06:59 18:59 Intake Total 422 150 Output Total 540 300 Balance 422 -540 -150 Weight 68.2 kg Intake: Oral 422 150 Output: Urine 540 300 Other: Voiding Method Indwelling Catheter Indwelling Catheter Indwelling Catheter # Bowel Movements 1 1 - Labs CBC & Chem 7: 10/28/19 10:29 10/29/19 06:30 Labs: Abnormal Lab Results - Last 24 Hours (Table) 10/28/19 10/28/19 10/28/19 Range/Units 10:29 11:42 17:10 RBC 2.95 L (3.80-5.40) m/uL Hgb 9.5 L (11.4-16.0) gm/dL Hct 31.3 L (34.0-46.0) % MCV 106.1 H (80.0-100.0) fL MCHC 30.4 L (31.0-37.0) g/dL RDW 18.7 H (11.5-15.5) % Lymphocytes # (Manual) 0.33 L (1.0-4.8) k/uL Macrocytosis Marked A Chloride (98-107) mmol/L Carbon Dioxide (22-30) mmol/L BUN (7-17) mg/dL Creatinine (0.52-1.04) mg/dL Glucose (74-99) mg/dL POC Glucose (mg/dL) 280 H 198 H (75-99) mg/dL Calcium (8.4-10.2) mg/dL Magnesium (1.6-2.3) mg/dL 10/28/19 10/29/19 10/29/19 Range/Units 20:23 06:17 06:30 RBC (3.80-5.40) m/uL Hgb (11.4-16.0) gm/dL Hct (34.0-46.0) % MCV (80.0-100.0) fL MCHC (31.0-37.0) g/dL RDW (11.5-15.5) % Lymphocytes # (Manual) (1.0-4.8) k/uL Macrocytosis Chloride 91 L (98-107) mmol/L Carbon Dioxide 42 H* (22-30) mmol/L BUN 82 H (7-17) mg/dL Creatinine 1.95 H (0.52-1.04) mg/dL Glucose 200 H (74-99) mg/dL POC Glucose (mg/dL) 322 H 215 H (75-99) mg/dL Calcium 8.3 L (8.4-10.2) mg/dL Magnesium 3.0 H (1.6-2.3) mg/dL 10/29/19 Range/Units 06:51 RBC (3.80-5.40) m/uL Hgb (11.4-16.0) gm/dL Hct (34.0-46.0) % MCV (80.0-100.0) fL MCHC (31.0-37.0) g/dL RDW (11.5-15.5) % Lymphocytes # (Manual) (1.0-4.8) k/uL Macrocytosis Chloride (98-107) mmol/L Carbon Dioxide (22-30) mmol/L BUN (7-17) mg/dL Creatinine (0.52-1.04) mg/dL Glucose (74-99) mg/dL POC Glucose (mg/dL) 198 H (75-99) mg/dL Calcium (8.4-10.2) mg/dL Magnesium (1.6-2.3) mg/dL Microbiology - Last 24 Hours (Table) 10/27/19 17:45 Gram Stain - Preliminary Pleural Fluid Body Fluid Culture - Preliminary
--- NOTE | 2019-10-29 13:18 | P.PN ---
Subjective Progress Note Date: 10/29/19 Principal diagnosis: dyspnea patient feels improving but still short of breath with ablation today is her first day work with physical therapy Objective - Vital Signs Vital signs: Vital Signs Temp 97.5 F L 10/29/19 12:00 Pulse 64 10/29/19 12:00 Resp 20 10/29/19 12:00 BP 118/55 10/29/19 12:00 Pulse Ox 100 10/29/19 12:00 Intake & Output 10/28/19 10/29/19 10/29/19 18:59 06:59 18:59 Intake Total 422 150 Output Total 540 300 Balance 422 -540 -150 Weight 68.2 kg Intake: Oral 422 150 Output: Urine 540 300 Other: Voiding Method Indwelling Catheter Indwelling Catheter Indwelling Catheter # Bowel Movements 1 1 - Exam Gen.: in stated age, no acute distress Heart: Normal S1-S2 Lungs: diminished bilaterally Abdomen: Soft, no tenderness, positive bowel sounds in all 4 quadrant no guard ing or rebound Skin: No new rash Psych: Alert and oriented 3 Neuro: No focal deficit - Labs CBC & Chem 7: 10/28/19 10:29 10/29/19 06:30 Labs: Abnormal Lab Results - Last 24 Hours (Table) 10/28/19 10/28/19 10/28/19 Range/Units 10:29 17:10 20:23 RBC 2.95 L (3.80-5.40) m/uL Hgb 9.5 L (11.4-16.0) gm/dL Hct 31.3 L (34.0-46.0) % MCV 106.1 H (80.0-100.0) fL MCHC 30.4 L (31.0-37.0) g/dL RDW 18.7 H (11.5-15.5) % Lymphocytes # (Manual) 0.33 L (1.0-4.8) k/uL Macrocytosis Marked A Chloride (98-107) mmol/L Carbon Dioxide (22-30) mmol/L BUN (7-17) mg/dL Creatinine (0.52-1.04) mg/dL Glucose (74-99) mg/dL POC Glucose (mg/dL) 198 H 322 H (75-99) mg/dL Calcium (8.4-10.2) mg/dL Magnesium (1.6-2.3) mg/dL 10/29/19 10/29/19 10/29/19 Range/Units 06:17 06:30 06:51 RBC (3.80-5.40) m/uL Hgb (11.4-16.0) gm/dL Hct (34.0-46.0) % MCV (80.0-100.0) fL MCHC (31.0-37.0) g/dL RDW (11.5-15.5) % Lymphocytes # (Manual) (1.0-4.8) k/uL Macrocytosis Chloride 91 L (98-107) mmol/L Carbon Dioxide 42 H* (22-30) mmol/L BUN 82 H (7-17) mg/dL Creatinine 1.95 H (0.52-1.04) mg/dL Glucose 200 H (74-99) mg/dL POC Glucose (mg/dL) 215 H 198 H (75-99) mg/dL Calcium 8.3 L (8.4-10.2) mg/dL Magnesium 3.0 H (1.6-2.3) mg/dL 10/29/19 Range/Units 11:49 RBC (3.80-5.40) m/uL Hgb (11.4-16.0) gm/dL Hct (34.0-46.0) % MCV (80.0-100.0) fL MCHC (31.0-37.0) g/dL RDW (11.5-15.5) % Lymphocytes # (Manual) (1.0-4.8) k/uL Macrocytosis Chloride (98-107) mmol/L Carbon Dioxide (22-30) mmol/L BUN (7-17) mg/dL Creatinine (0.52-1.04) mg/dL Glucose (74-99) mg/dL POC Glucose (mg/dL) 212 H (75-99) mg/dL Calcium (8.4-10.2) mg/dL Magnesium (1.6-2.3) mg/dL Microbiology - Last 24 Hours (Table) 10/27/19 17:45 Gram Stain - Preliminary Pleural Fluid Body Fluid Culture - Preliminary Assessment and Plan Assessment: 1. Acute on chronic respiratory failure with hypoxia. 2. CHF with exacerbation. 3. Acute kidney injury on chronic kidney disease. 4. Elevated carbon dioxide. 5. Atrial fibrillation. 6. Congestive heart failure exacerbation. Plan discussed with nephrology to hold all diuretics today monitor kidney function closely monitor urine output consider resuming oral diuretics versus IV diuretics in the morning based on clinical progress we'll repeat blood work in the morning continue monitoring vital signs encourage oral intake and continue with physical therapy on daily basis
--- NOTE | 2019-10-29 15:20 | P.PN ---
Subjective Progress Note Date: 10/29/19 This is 79-year-old white female patient of Dr. Mills, with past medical history of chronic congestive heart failure with diastolic dysfunction, hypertension, diabetes mellitus type 2, chronic kidney disease stage III, previous history of TIA/CVA, anxiety disorder, chronic atrial fibrillation on Eliquis, patient had been on home oxygen previously, currently not requiring home oxygen. Patient also has moderately severe pulmonary hypertension, PA systolic of 56 monos of mercury as seen on previous echocardiogram. We had previously seen the patient in consultation back in May for acute exacerbation of diastolic CHF, and earlier in the month in May for small left apical pneumothorax. Patient's si ster gives history of previous thoracentesis at [facility], but she is unsure of the dates, and the results of of the fluid analysis. On 10/25/2019 patient was brought into the emergency department per EMS from her home for evaluation of increasing shortness of breath. Patient was being treated on an outpatient basis for fluid on her lungs, with no improvement. Patient denied any chest pain, denied any palpitations, denied any fever or chills, no cough or congestion, no hemoptysis. Chest x-ray showed worsening bilateral pleural effusions moderate size pocket on the right and small pocket on the left. EKG showed sinus bradycardia, with right bundle branch block with T-wave inversion in inferolateral leads. Echocardiogram showed left ventricular systolic function preserved with an EF of 65-70%. Right ventricle was severely enlarged, trace amount of aortic regurgitation however could not rule out aortic valve leaflet. Mild mitral regurg and severe tricuspid regurg with mild pulmonary hypertension with right-sided pressures of 42 mmHg. Patient was started on IV diuretics, however she has been borderline hypotensive, and hydrocortisone and Florinef were added per attending physician. She has been on BiPAP support with pressures of 14/6 and FiO2 of 50%. Labs were reviewed showing white blood cell count of 4.4, hemoglobin 10.4, B1 of 71 and creatinine is 1.38, proBNP was 70,009 100, troponin 0.056. Urinalysis was negative for signs of infection. On 10/26/2019 patient seen in follow-up in the intensive care unit, she is off BiPAP currently, she did wear through the night, currently on 4 L of oxygen, she states her breathing continues to improve, feeling better, no worsening dyspnea, she continues on Lasix infusion at 10 mg per hour, she is only very -279 mL fluid balance, his labs have been reviewed, and there has been worsening of her renal function, with B1 up to 80 and creatinine of 2.11, white blood cell count is 3.8, hemoglobin is 8.6. but clinically she states she is breathing easier today, Eliquis has been on hold. lung sounds reveal bibasilar crackles. repeat chest x-ray showed stable findings cardiomegaly with small to moderate right greater than left pleural effusions. on 10/27/2019 I'm seeing the patient for a follow-up. The patient is feeling well. She is on oxygen at 3 L per minute nasal cannula. She is off the BiPAP. She is producing urine output. I the patient was placed on a Lasix drip. Her creatinine is on the rise in soft to2.4 on today's evaluation. Based on that, I discontinuedthe Eliquis for 24 hours and I performed a bedside thoracentesis during which a total of 4 50 mL of turbid dark yellowish pleural fluid was aspirated from the right lung without any complications. The patient did well and the chest x-rays to follow. Otherwise, no new complaints. She has a Fam catheter in place patient remains negative fluid balance for now. No angina. No palpitations. on 10/28/2019, the patient is post thoracentesis and I removed a total of 450 mL of pleural fluid from the right lung.the patient is feeling well. No new complaints. I took her off the IV Lasix knowing that the patient's creatinine was on the rise. Creatinine was up to 2. She was restarted back on Lasix 40 mg IV push every 12 hours patient was restarted also back on Eliquis. The procedure was done without any complication. Final fluid characteristics still pending for now in terms of transudate versus exudate patient on fluids. Fam catheter is in place. She is in a negative fluid balance. He is producing urine output. Renal function is improved compared to yesterday. No chest pain. No other complaints otherwise. She is off the BiPAP. She has no major edema in lower extremities at this point in time. The patient is seen today 10/29/2019 in follow-up on the selective care unit. She is currently resting comfortably in bed. Awake and alert in no acute distress. She denies any worsening shortness of breath, cough or congestion. No chills or night sweats. Pleural fluid results are still pending. Creatinine 1.95.diuretics and diuretics have been discontinued. She does not utilize the BiPAP in 24 hours or more. Maintaining good O2 saturations up to 100% on 1 L/m per nasal cannula. Objective - Vital Signs Vital signs: Vital Signs Temp 97.5 F L 10/29/19 12:00 Pulse 64 10/29/19 12:00 Resp 20 10/29/19 12:00 BP 118/55 10/29/19 12:00 Pulse Ox 100 10/29/19 12:00 Intake & Output 10/28/19 10/29/19 10/29/19 18:59 06:59 18:59 Intake Total 422 390 Output Total 540 300 Balance 422 -540 90 Weight 68.2 kg Intake: Oral 422 390 Output: Urine 540 300 Other: Voiding Method Indwelling Catheter Indwelling Catheter Indwelling Catheter # Bowel Movements 1 1 - Exam GENERAL EXAM: Alert, very pleasant, 79-year-old white female patient, on 1 L, comfortable in no apparent distress. HEAD: Normocephalic/atraumatic. EYES: Normal reaction of pupils, equal size. Conjunctiva pink, sclera white. NOSE: Clear with pink turbinates. THROAT: No erythema or exudates. NECK: No masses, no JVD, no thyroid enlargement, no adenopathy. CHEST: No chest wall deformity. Symmetrical expansion. LUNGS: Equal air entry with bibasilar crackles, diminished breath sounds at the bases. No wheeze, rhonchi or dullness. CVS: Regular rate and rhythm, normal S1 and S2, no gallops, no murmurs, no rubs ABDOMEN: Soft, nontender. No hepatosplenomegaly, normal bowel sounds, no guarding or rigidity. EXTREMITIES: No clubbing, mild pretibial edema, no cyanosis, 2+ pulses and upper and lower extremities. MUSCULOSKELETAL: Muscle strength and tone normal. SPINE: No scoliosis or deformity SKIN: No rashes CENTRAL NERVOUS SYSTEM: No focal deficits, tone is normal in all 4 extremities. PSYCHIATRIC: Alert and oriented -3. Appropriate affect. Intact judgment and insight. - Labs CBC & Chem 7: 10/28/19 10:29 10/29/19 06:30 Labs: Abnormal Lab Results - Last 24 Hours (Table) 10/28/19 10/28/19 10/29/19 Range/Units 17:10 20:23 06:17 Chloride (98-107) mmol/L Carbon Dioxide (22-30) mmol/L BUN (7-17) mg/dL Creatinine (0.52-1.04) mg/dL Glucose (74-99) mg/dL POC Glucose (mg/dL) 198 H 322 H 215 H (75-99) mg/dL Calcium (8.4-10.2) mg/dL Magnesium (1.6-2.3) mg/dL 10/29/19 10/29/19 10/29/19 Range/Units 06:30 06:51 11:49 Chloride 91 L (98-107) mmol/L Carbon Dioxide 42 H* (22-30) mmol/L BUN 82 H (7-17) mg/dL Creatinine 1.95 H (0.52-1.04) mg/dL Glucose 200 H (74-99) mg/dL POC Glucose (mg/dL) 198 H 212 H (75-99) mg/dL Calcium 8.3 L (8.4-10.2) mg/dL Magnesium 3.0 H (1.6-2.3) mg/dL Microbiology - Last 24 Hours (Table) 10/27/19 17:45 Gram Stain - Preliminary Pleural Fluid Body Fluid Culture - Preliminary Assessment and Plan Assessment: #1. Acute on chronic hypoxic respiratory failure secondary to acute exacerbation of diastolic congestive heart failure, the patient underwent a thoracentesis of the right lung #2. Bilateral pleural effusions, right greater than left, related to acute CHF exacerbation. The patient also had a thoracentesis of the bedside and the patient had a total of 450 mL of pleural fluid aspirated from the right lung. the final nature of the fluid in terms of transudate versus exudate is not back yet and this will be available hopefully within next 24-48 hours. The procedure was done without any complications. The patient is back on anticoagulation. #3. History of paroxysmal atrial fibrillation on Eliquis #4. Chronic kidney disease stage IIIi wth a component of acute kidney injury above her chronic kidney disease in the creatinine today is down to 2.0 and she was restarted back on Lasix. #5. History of TIA #'s. Hypertension #7. Seizure disorder #9. Generalized anxiety disorder plan: The patient was seen and evaluated by Dr. Munoz. She is currently stable from the pulmonary standpoint. Titrate off the FiO2 as tolerated as patient is up to 100% O2 saturation 1 L. No pulmonary complaints today. Awaiting thoracentesis fluid analysis and cytology results. I, the cosigning physician, performed a history & physical examination of the patient. Lungs sounds A crackles in the posterior basesr. Maintaining good O2 saturations in the 90s on 1 L/m per nasal cannular. I discussed the assessment and plan of care with my nurse practitioner, Nataly Reveles. I attest to the above note as dictated by her.
[2019-10-29] MEDS: PRAVASTATIN SODIUM 20 MG TAB PO SCH (16:34)
[2019-10-29 17:05] LABS: Glucose,Whole Blood 339 mg/dL (75-99)
[2019-10-29 17:32] LABS: % Iron Saturation 10.71 (12.00-45.00)
[2019-10-29 20:30] LABS: Glucose,Whole Blood 282 mg/dL (75-99)
[2019-10-29] MEDS: INSULIN DETEMIR (LEVEMIR) 100 UNIT/ML SYR SQ SCH (20:47)
[2019-10-29] MEDS: MELATONIN 5 MG TABLET PO SCH (20:48)
[2019-10-30] MEDS: LEVOTHYROXINE 112 MCG TAB PO SCH (06:05)
[2019-10-30 06:25] LABS: Calcium 8.2 mg/dL (8.4-10.2); Potassium 3.2 mmol/L (3.5-5.1)
[2019-10-30 06:54] LABS: Glucose,Whole Blood 166 mg/dL (75-99)
[2019-10-30] MEDS: INSULIN ASPART (NovoLOG) 100 UNIT/ML VIAL SQ SCH ×7 (07:14→21:53)
[2019-10-30] MEDS: busPIRone HCl 10 MG TAB PO SCH ×2 (07:50→17:07)
[2019-10-30] MEDS: GABAPENTIN 100 MG CAP PO SCH ×2 (07:50→21:52)
[2019-10-30] MEDS: DIVALPROEX SPRINKLE 125 MG CAP.SPRINK PO SCH (07:50)
[2019-10-30] MEDS: FERROUS SULFATE 325 MG TAB PO SCH ×2 (07:50→17:08)
[2019-10-30] MEDS: APIXABAN 5 MG TAB PO SCH ×2 (07:50→21:52)
[2019-10-30] MEDS: SERTRALINE 50 MG TAB PO SCH (07:50)
[2019-10-30] MEDS: DICLOFENAC SODIUM GEL 100 GM TUBE TOPICAL SCH ×4 (07:51→21:54)
[2019-10-30] MEDS: HYDROCORTISONE SUCCINATE 100 MG/2 ML VIAL IV SCH ×2 (07:51→21:52)
[2019-10-30] MEDS: BUDESONIDE 1 MG/2 ML NEBU INHALATION PRN (08:37)
[2019-10-30] MEDS: ALBUTEROL NEBULIZED 2.5 MG/3 ML INHALATION PRN (08:37)
[2019-10-30] MEDS ORDERED: Potassium Replacement Protocol 1 EACH MISC MISCELLANE PRN (10:21)
--- NOTE | 2019-10-30 10:21 | P.PN ---
Subjective This is a pleasant 79-year-old female past medical history significant for chronic diastolic heart failure, paroxysmal atrial fibrillation, diabetes mellitus, chronic kidney disease, TIA, hypertension and history of TIA. She is seen and examined sitting up in bed in no acute distress. Diuretic therapy currently on hold per nephrology. She denies chest pain, dizziness or palpitations. Blood pressure 118/50 564 afebrile maintaining oxygen saturation on nasal cannula. A battery data reviewed, WBC 140, potassium 3.5, carbon dioxide 42, creatinine 1.95, magnesium 3. 10/30/2019 Patient seen and examined sitting up in the chair in no acute distress. She continues to have dyspnea at rest. She denies chest pain, dizziness or palp itations. Blood pressure 124/91 heart rate 70 afebrile maintaining oxygen saturation on nasal cannula. Laboratory data reviewed, sodium 144, potassium 3.2, creatinine 1.64, magnesium 3. GENERAL: Well-appearing, well-nourished and in no acute distress. NECK: Supple without JVD or thyromegaly. LUNGS: Bibasilar rales, diminished, no wheezes or rhonchi. Respirations equal and unlabored. HEART: Regular rate and rhythm without murmurs, rubs or gallops. S1 and S2 heard. EXTREMITIES: Normal range of motion, trace left lower extremity pitting edema, no edema on the right. No clubbing or cyanosis. Peripheral pulses intact. ASSESSMENT Acute on chronic diastolic heart failure Bilateral pleural effusions status post thoracentesis Chronic kidney disease Paroxysmal atrial fibrillation Diabetes mellitus Hypertension Hypermagnesemia Tricuspid regurgitation Pulmonary hypertension Hypokalemia PLAN Continue current medical regimen. Diuretics per nephrology. Replace potassium per protocol. Nurse Practitioner note has been reviewed, I agree with a documented findings and plan of care. Patient was seen and examined. Objective - Vital Signs Vital signs: Vital Signs Temp 97.4 F L 10/30/19 07:44 Pulse 70 10/30/19 08:52 Resp 20 10/30/19 08:00 BP 124/91 10/30/19 07:44 Pulse Ox 95 10/30/19 07:44 Intake & Output 10/29/19 10/30/19 10/30/19 18:59 06:59 18:59 Intake Total 750 90 Output Total 940 450 Balance -190 -450 90 Weight 67 kg Intake: IV 120 .9 120 Oral 630 90 Output: Urine 940 450 Other: Voiding Method Indwelling Catheter Indwelling Catheter Indwelling Catheter # Bowel Movements 1 - Labs CBC & Chem 7: 10/28/19 10:29 10/30/19 05:50 Labs: Abnormal Lab Results - Last 24 Hours (Table) 10/29/19 10/29/19 10/29/19 Range/Units 06:30 11:49 16:56 Potassium (3.5-5.1) mmol/L Chloride (98-107) mmol/L Carbon Dioxide (22-30) mmol/L BUN (7-17) mg/dL Creatinine (0.52-1.04) mg/dL Glucose (74-99) mg/dL POC Glucose (mg/dL) 212 H 339 H (75-99) mg/dL Calcium (8.4-10.2) mg/dL Magnesium (1.6-2.3) mg/dL Iron 36 L (50-170) ug/dL % Saturation 10.71 L (12.00-45.00) 10/29/19 10/30/19 10/30/19 Range/Units 20:29 05:50 06:53 Potassium 3.2 L (3.5-5.1) mmol/L Chloride 95 L (98-107) mmol/L Carbon Dioxide 44 H* (22-30) mmol/L BUN 78 H (7-17) mg/dL Creatinine 1.64 H (0.52-1.04) mg/dL Glucose 146 H (74-99) mg/dL POC Glucose (mg/dL) 282 H 166 H (75-99) mg/dL Calcium 8.2 L (8.4-10.2) mg/dL Magnesium 3.0 H (1.6-2.3) mg/dL Iron (50-170) ug/dL % Saturation (12.00-45.00) Microbiology - Last 24 Hours (Table) 10/27/19 17:45 Gram Stain - Preliminary Pleural Fluid Body Fluid Culture - Preliminary
--- NOTE | 2019-10-30 10:27 | P.PN ---
Subjective Progress Note Date: 10/30/19 Principal diagnosis: Tammi is feeling better since admission. She was being diuresed vigorously but because of metabolic alkalosis and acute kidney injury Lasix was reduced. She has responded with improvement in creatinine. Today she is denying any complaints. No chest pain shortness of breath cough. Yesterday she had minimal changes orthostatics. he was also started on Diamox because of the metabolic alkalosis. She has anemia and looks somewhat pale. In spite of being off of Lasix her bicarbonate continues to go up. History of present illness: Patient is a 79-year-old female seen in consultation for acute kidney injury on chronic kidney disease. Patient has chronic kidney disease stage III with baseline creatinine fluctuating in the range of 1.3-2. Patient presented to the hospital on October 24 with dyspnea. She was noted to have pleural effusions. She was started on Lasix drip. Patient also underwent right-sided thoracentesis on October 27 with 460 mL removed. Patient's echocardiogram done this admission revealed ejection fraction of 65-70% with severe tricuspid regurgitation. overall her symptoms have improved. She denies any active chest pain or shortness of breath.patient has a Fam catheter in place. Urine output documented is 1.1 L in the last 24 hours. Bicarb is up to 41 today. Hemodynamically the patient is fairly stable. Patient has long-standing history of diabetes mellitus. No proteinuria noted on UA. Objective - Vital Signs Vital signs: Vital Signs Temp 97.4 F L 10/30/19 07:44 Pulse 70 10/30/19 08:52 Resp 20 10/30/19 08:00 BP 124/91 10/30/19 07:44 Pulse Ox 95 10/30/19 07:44 Intake & Output 10/29/19 10/30/19 10/30/19 18:59 06:59 18:59 Intake Total 750 90 Output Total 940 450 Balance -190 -450 90 Weight 67 kg Intake: IV 120 .9 120 Oral 630 90 Output: Urine 940 450 Other: Voiding Method Indwelling Catheter Indwelling Catheter Indwelling Catheter # Bowel Movements 1 On examination she is awake alert oriented comfortable although pale and ill looking. HEENT exam no JVP neck is supple no facial asymmetry Lungs are clear to auscultation although air entry is less than optimal Heart sounds are unremarkable for any murmur rub gallop Abdomen soft nontender Extremity exam was trace edema. Neurologically awake alert oriented but profoundly weak - Labs CBC & Chem 7: 10/28/19 10:29 10/30/19 05:50 Labs: Abnormal Lab Results - Last 24 Hours (Table) 10/29/19 10/29/19 10/29/19 Range/Units 06:30 11:49 16:56 Potassium (3.5-5.1) mmol/L Chloride (98-107) mmol/L Carbon Dioxide (22-30) mmol/L BUN (7-17) mg/dL Creatinine (0.52-1.04) mg/dL Glucose (74-99) mg/dL POC Glucose (mg/dL) 212 H 339 H (75-99) mg/dL Calcium (8.4-10.2) mg/dL Magnesium (1.6-2.3) mg/dL Iron 36 L (50-170) ug/dL % Saturation 10.71 L (12.00-45.00) 10/29/19 10/30/19 10/30/19 Range/Units 20:29 05:50 06:53 Potassium 3.2 L (3.5-5.1) mmol/L Chloride 95 L (98-107) mmol/L Carbon Dioxide 44 H* (22-30) mmol/L BUN 78 H (7-17) mg/dL Creatinine 1.64 H (0.52-1.04) mg/dL Glucose 146 H (74-99) mg/dL POC Glucose (mg/dL) 282 H 166 H (75-99) mg/dL Calcium 8.2 L (8.4-10.2) mg/dL Magnesium 3.0 H (1.6-2.3) mg/dL Iron (50-170) ug/dL % Saturation (12.00-45.00) Microbiology - Last 24 Hours (Table) 10/27/19 17:45 Gram Stain - Preliminary Pleural Fluid Body Fluid Culture - Preliminary Assessment and Plan Assessment: assessment: 1. Acute kidney injury mostly prerenal secondary to cardiorenal syndrome.creatinine peaked at 2.4 this admission and is 1.64 as of today, warner nuing to improve 2. Chronic kidney disease stage III secondary to nephrosclerosis with baseline creatinine fluctuating in the range of 1.3-2. 3. Volume overload. Improving with diuresis. Chest x-ray shows improvement no pulmonary edema, decreased right pleural effusion and tiny left effusion. 4. Orthostatic changes, mild on 10/29/2019 4. Acute on chronic diastolic CHF with severe tricuspid regurgitation. 5. History of hypercalcemia. Currently stable. Patient could not afford Sensipar. 6. Metabolic alkalosis secondary to diuresis. Continues to go up to 44 7. Insulin-dependent diabetes mellitus. Not controlled well. 8. Anemia with iron saturation 10% on 10/29/2019, hemoglobin is 9.5 on 10/28/2019 Recommendation 1. Continue to hold Lasix, metolazone and spironolactone. These were discontinued on 10/29/2019. 2. Resume Diamox 250 3 times a day for 3 days. 3. orthostatic changes being checked 4. Check labs tomorrow
[2019-10-30 11:48] LABS: Glucose,Whole Blood 153 mg/dL (75-99)
[2019-10-30] MEDS: POTASSIUM CHLORIDE ER 20 MEQ TAB.ER PO SCH ×2 (11:54→17:08)
--- NOTE | 2019-10-30 12:19 | P.DS ---
Providers Date of admission: 10/24/19 12:58 Attending physician: Nadira Gallardo MD Consults: 10/24/19 12:58 Consult Physician Routine Consulting Provider: [facility] Consult Reason/Comments: Acute pulmonary edema Do you want consulting provider notified?: Yes 10/24/19 16:08 Consult Physician Routine Consulting Provider: Mp Munoz Consult Reason/Comments: pulmonary edema Do you want consulting provider notified?: Yes 10/27/19 18:11 Consult Physician Routine Consulting Provider: Zeny Caraballo Consult Reason/Comments: increased creatnine with lasix gtt Do you want consulting provider notified?: Yes, Notify in am Primary care physician: [facility] Course: this is 52 years old female with past medical history significant for coronary artery disease presents to the emergency department with abdominal pain. Patient was taken to the surgical suite by general surgery for acute appendicitis tolerated procedure well and was transferred to observation unit after surgery where I was consulted for evaluation. Patient had significant episodes of minor bleeding from umbilical site insertion and that was resolved by simple compression as was instructed by general surgery. Patient this morning is alert awake and oriented ambulating in the room on her own tolerating clear liquid diet denying chest pain shortness breath nausea vomiting dumping dizziness lightheadedness or blurry vision still complaining of abdominal bloating which I expect to the patient that it's expected after laparoscopic cholecystectomy. Patient felt stable from the medical standpoint as her bradycardia recovered this morning which felt to be related to sedation obstructive sleep apnea and anesthetics. Patient was started on her cardiac medication again by freight adjuster who evaluated the patient during hospital stay and patient asked to follow-up with her primary care physician within 7 days and with cardiology unscheduled appointment. Discharge is pending surgery evaluation regarding management of her pain medication and evaluation for her abdominal incisions after that patient can be discharged. Plan - Discharge Summary New Discharge Prescriptions: No Action Pravastatin Sodium [Pravachol] 20 mg PO DAILY@1700 Apixaban [Eliquis] 5 mg PO BID@0800,1700 Budesonide 1 mg INHALATION RT-BID PRN PRN Reason: Shortness Of Breath Divalproex Sodium [Depakote Sprinkle] 500 mg PO DAILY@0800 Ferrous Sulfate [Iron (65 MG Elemental)] 325 mg PO BID@0800,1700 Levothyroxine Sodium 112 mcg PO DAILY@0600 Lisinopril [Prinivil] 5 mg PO DAILY@0800 Magnesium Oxide 400 mg PO DAILY@1700 Melatonin 10 mg PO HS@2100 Sertraline [Zoloft] 50 mg PO DAILY@0800 Sucralfate [Carafate] 1 gm PO ACHS PRN PRN Reason: Gi Upset Albuterol Nebulized [Ventolin Nebulized] 2.5 mg INHALATION RT-Q4H PRN PRN Reason: Shortness Of Breath Acetaminophen Tab [Tylenol] 650 mg PO Q6H PRN PRN Reason: Pain Multivitamins, Thera [Multivitamin (formulary)] 1 tab PO DAILY@1700 Cyanocobalamin (Vitamin B-12) [Vitamin B-12] 1,000 mcg PO DAILY@1700 INSULIN ASPART (NovoLOG) [NovoLOG (formulary)] 5 unit SQ AC-SUPPER vial Diclofenac Sodium Gel [Voltaren Gel] 4 gm TOPICAL QID tube Sennosides-Docusate Sodium [Senokot-S] 2 tab PO DAILY PRN PRN Reason: Constipation INSULIN ASPART (NovoLOG) [NovoLOG (formulary)] See Protocol SQ ACHS Sodium Bicarbonate Tab 650 mg PO BID@0800,1700 INSULIN ASPART (NovoLOG) [NovoLOG (formulary)] 8 unit SQ BID@0700,1100 hydrALAZINE HCL [Apresoline] 25 mg PO BID@0800,1700 busPIRone HCl [Buspar] 10 mg PO BID@0800,1700 Furosemide [Lasix] 40 mg PO BID@0600,1400 Gabapentin [Neurontin] 100 mg PO BID@0800,2100 Fludrocortisone Acetate 0.1 mg PO BID@0800,1700 Propranolol LA [Inderal LA] 60 mg PO DAILY@0800 Epoetin Stevan [Procrit] 10,000 unit IM FR Metolazone [Zaroxolyn] 2.5 mg PO DAILY@1400 Insulin Detemir (Levemir) [Levemir] 18 unit SQ HS@2100 Hydrocortisone [Cortef] 5 mg PO HS@2130 Hydrocortisone 10 mg PO DAILY@0800 Aspirin 81 mg PO DAILY@1700 Spironolactone [Aldactone] 25 mg PO DAILY@0800 Discharge Medication List Pravastatin Sodium [Pravachol] 20 mg PO DAILY@169904/23/14 [History] Acetaminophen Tab [Tylenol] 650 mg PO Q6H PRN 05/20/19 [History] Albuterol Nebulized [Ventolin Nebulized] 2.5 mg INHALATION RT-Q4H PRN 05/20/19 [History] Apixaban [Eliquis] 5 mg PO BID@0800,169905/20/19 [History] Budesonide 1 mg INHALATION RT-BID PRN 05/20/19 [History] Divalproex Sodium [Depakote Sprinkle] 500 mg PO DAILY@79905/20/19 [History] Ferrous Sulfate [Iron (65 MG Elemental)] 325 mg PO BID@0800,169905/20/19 [History] Levothyroxine Sodium 112 mcg PO DAILY@59905/20/19 [History] Lisinopril [Prinivil] 5 mg PO DAILY@79905/20/19 [History] Magnesium Oxide 400 mg PO DAILY@169905/20/19 [History] Melatonin 10 mg PO HS@209905/20/19 [History] Sertraline [Zoloft] 50 mg PO DAILY@79905/20/19 [History] Sucralfate [Carafate] 1 gm PO ACHS PRN 05/20/19 [History] Multivitamins, Thera [Multivitamin (formulary)] 1 tab PO DAILY@169909/23/19 [History] Cyanocobalamin (Vitamin B-12) [Vitamin B-12] 1,000 mcg PO DAILY@169909/26/19 [History] Diclofenac Sodium Gel [Voltaren Gel] 4 gm TOPICAL QID tube 09/29/19 [Rx] INSULIN ASPART (NovoLOG) [NovoLOG (formulary)] 5 unit SQ AC-SUPPER vial 09/29/19 [Rx] Aspirin 81 mg PO DAILY@169910/24/19 [History] Epoetin Stevan [Procrit] 10,000 unit IM FR 10/24/19 [History] Fludrocortisone Acetate 0.1 mg PO BID@0800,1700 10/24/19 [History] Furosemide [Lasix] 40 mg PO BID@0600,1400 10/24/19 [History] Gabapentin [Neurontin] 100 mg PO BID@0800,2100 10/24/19 [History] Hydrocortisone 10 mg PO DAILY@0800 10/24/19 [History] Hydrocortisone [Cortef] 5 mg PO HS@21310/24/19 [History] INSULIN ASPART (NovoLOG) [NovoLOG (formulary)] 8 unit SQ BID@0700,1100 10/24/19 [History] INSULIN ASPART (NovoLOG) [NovoLOG (formulary)] See Protocol SQ ACHS 10/24/19 [History] Insulin Detemir (Levemir) [Levemir] 18 unit SQ HS@2100 10/24/19 [History] Metolazone [Zaroxolyn] 2.5 mg PO DAILY@1400 10/24/19 [History] Propranolol LA [Inderal LA] 60 mg PO DAILY@0800 10/24/19 [History] Sennosides-Docusate Sodium [Senokot-S] 2 tab PO DAILY PRN 10/24/19 [History] Sodium Bicarbonate Tab 650 mg PO BID@0800,1700 10/24/19 [History] Spironolactone [Aldactone] 25 mg PO DAILY@0800 10/24/19 [History] busPIRone HCl [Buspar] 10 mg PO BID@0800,1700 10/24/19 [History] hydrALAZINE HCL [Apresoline] 25 mg PO BID@0800,1700 10/24/19 [History] Follow up Appointment(s)/Referral(s): Eleazar Mills MD [Primary Care Provider] - 1-2 days
--- NOTE | 2019-10-30 12:31 | P.PN ---
Subjective Progress Note Date: 10/30/19 Principal diagnosis: dyspnea patient continued to be hemodynamic a stable no major events reported by nursing staff patient seems to be improving overall and no acute distress Objective - Vital Signs Vital signs: Vital Signs Temp 97.4 F L 10/30/19 07:44 Pulse 70 10/30/19 08:52 Resp 20 10/30/19 08:00 BP 124/91 10/30/19 07:44 Pulse Ox 95 10/30/19 07:44 Intake & Output 10/29/19 10/30/19 10/30/19 18:59 06:59 18:59 Intake Total 750 90 Output Total 940 450 Balance -190 -450 90 Weight 67 kg Intake: IV 120 .9 120 Oral 630 90 Output: Urine 940 450 Other: Voiding Method Indwelling Catheter Indwelling Catheter Indwelling Catheter # Bowel Movements 1 - Exam Gen.: in stated age, no acute distress Heart: Normal S1-S2 Lungs: diminished bilaterally Abdomen: Soft, no tenderness, positive bowel sounds in all 4 quadrant no guarding or rebound Skin: No new rash Psych: Alert and oriented 3 Neuro: No focal deficit - Labs CBC & Chem 7: 10/28/19 10:29 10/30/19 05:50 Labs: Abnormal Lab Results - Last 24 Hours (Table) 10/29/19 10/29/19 10/29/19 Range/Units 06:30 16:56 20:29 Potassium (3.5-5.1) mmol/L Chloride (98-107) mmol/L Carbon Dioxide (22-30) mmol/L BUN (7-17) mg/dL Creatinine (0.52-1.04) mg/dL Glucose (74-99) mg/dL POC Glucose (mg/dL) 339 H 282 H (75-99) mg/dL Calcium (8.4-10.2) mg/dL Magnesium (1.6-2.3) mg/dL Iron 36 L (50-170) ug/dL % Saturation 10.71 L (12.00-45.00) 10/30/19 10/30/19 10/30/19 Range/Units 05:50 06:53 11:44 Potassium 3.2 L (3.5-5.1) mmol/L Chloride 95 L (98-107) mmol/L Carbon Dioxide 44 H* (22-30) mmol/L BUN 78 H (7-17) mg/dL Creatinine 1.64 H (0.52-1.04) mg/dL Glucose 146 H (74-99) mg/dL POC Glucose (mg/dL) 166 H 153 H (75-99) mg/dL Calcium 8.2 L (8.4-10.2) mg/dL Magnesium 3.0 H (1.6-2.3) mg/dL Iron (50-170) ug/dL % Saturation (12.00-45.00) Microbiology - Last 24 Hours (Table) 10/27/19 17:45 Gram Stain - Preliminary Pleural Fluid Body Fluid Culture - Preliminary Assessment and Plan Assessment: 1. Acute on chronic respiratory failure with hypoxia. 2. CHF with exacerbation. 3. Acute kidney injury on chronic kidney disease. 4. Elevated carbon dioxide. 5. Atrial fibrillation. 6. Congestive heart failure exacerbation. plan discussed with nephrology to hold furosemide or any loop diuretics due to elevated carbon dioxide and consider starting Diamox. Patient seems to be improving overall without significant crackles or lower extremity edema and I would like to continue close monitoring for her vital signs repeat her electrolytes in the morning continue cardioprotective medication and encourage oral intake. Continue monitoring I's and O's and consider removing Fam catheter based on clinical progress
--- NOTE | 2019-10-30 14:31 | P.PN ---
Subjective Progress Note Date: 10/30/19 This is 79-year-old white female patient of Dr. Mills, with past medical history of chronic congestive heart failure with diastolic dysfunction, hypertension, diabetes mellitus type 2, chronic kidney disease stage III, previous history of TIA/CVA, anxiety disorder, chronic atrial fibrillation on Eliquis, patient had been on home oxygen previously, currently not requiring home oxygen. Patient also has moderately severe pulmonary hypertension, PA systolic of 56 monos of mercury as seen on previous echocardiogram. We had previously seen the patient in consultation back in May for acute exacerbation of diastolic CHF, and earlier in the month in May for small left apical pneumothorax. Patient's s ister gives history of previous thoracentesis at [facility], but she is unsure of the dates, and the results of of the fluid analysis. On 10/25/2019 patient was brought into the emergency department per EMS from her home for evaluation of increasing shortness of breath. Patient was being treated on an outpatient basis for fluid on her lungs, with no improvement. Patient denied any chest pain, denied any palpitations, denied any fever or chills, no cough or congestion, no hemoptysis. Chest x-ray showed worsening bilateral pleural effusions moderate size pocket on the right and small pocket on the left. EKG showed sinus bradycardia, with right bundle branch block with T-wave inversion in inferolateral leads. Echocardiogram showed left ventricular systolic function preserved with an EF of 65-70%. Right ventricle was severely enlarged, trace amount of aortic regurgitation however could not rule out aortic valve leaflet. Mild mitral regurg and severe tricuspid regurg with mild pulmonary hypertension with right-sided pressures of 42 mmHg. Patient was started on IV diuretics, however she has been borderline hypotensive, and hydrocortisone and Florinef were added per attending physician. She has been on BiPAP support with pressures of 14/6 and FiO2 of 50%. Labs were reviewed showing white blood cell count of 4.4, hemoglobin 10.4, B1 of 71 and creatinine is 1.38, proBNP was 70,009 100, troponin 0.056. Urinalysis was negative for signs of infection. On 10/26/2019 patient seen in follow-up in the intensive care unit, she is off BiPAP currently, she did wear through the night, currently on 4 L of oxygen, she states her breathing continues to improve, feeling better, no worsening dyspnea, she continues on Lasix infusion at 10 mg per hour, she is only very -279 mL fluid balance, his labs have been reviewed, and there has been worsening of her renal function, with B1 up to 80 and creatinine of 2.11, white blood cell count is 3.8, hemoglobin is 8.6. but clinically she states she is breathing easier today, Eliquis has been on hold. lung sounds reveal bibasilar crackles. repeat chest x-ray showed stable findings cardiomegaly with small to moderate right greater than left pleural effusions. on 10/27/2019 I'm seeing the patient for a follow-up. The patient is feeling well. She is on oxygen at 3 L per minute nasal cannula. She is off the BiPAP. She is producing urine output. I the patient was placed on a Lasix drip. Her creatinine is on the rise in soft to2.4 on today's evaluation. Based on that, I discontinuedthe Eliquis for 24 hours and I performed a bedside thoracentesis during which a total of 4 50 mL of turbid dark yellowish pleural fluid was aspirated from the right lung without any complications. The patient did well and the chest x-rays to follow. Otherwise, no new complaints. She has a Fam catheter in place patient remains negative fluid balance for now. No angina. No palpitations. on 10/28/2019, the patient is post thoracentesis and I removed a total of 450 mL of pleural fluid from the right lung.the patient is feeling well. No new complaints. I took her off the IV Lasix knowing that the patient's creatinine was on the rise. Creatinine was up to 2. She was restarted back on Lasix 40 mg IV push every 12 hours patient was restarted also back on Eliquis. The procedure was done without any complication. Final fluid characteristics still pending for now in terms of transudate versus exudate patient on fluids. Fam catheter is in place. She is in a negative fluid balance. He is producing urine output. Renal function is improved compared to yesterday. No chest pain. No other complaints otherwise. She is off the BiPAP. She has no major edema in lower extremities at this point in time. The patient is seen today 10/29/2019 in follow-up on the selective care unit. She is currently resting comfortably in bed. Awake and alert in no acute distress. She denies any worsening shortness of breath, cough or congestion. No chills or night sweats. Pleural fluid results are still pending. Creatinine 1.95.diuretics and diuretics have been discontinued. She does not utilize the BiPAP in 24 hours or more. Maintaining good O2 saturations up to 100% on 1 L/m per nasal cannula. Objective - Vital Signs Vital signs: Vital Signs Temp 97.6 F 10/30/19 12:00 Pulse 68 10/30/19 12:00 Resp 20 10/30/19 12:00 BP 148/65 10/30/19 12:00 Pulse Ox 98 10/30/19 12:00 Intake & Output 10/29/19 10/30/19 10/30/19 18:59 06:59 18:59 Intake Total 750 210 Output Total 940 450 800 Balance -190 -450 -590 Weight 67 kg Intake: IV 120 .9 120 Oral 630 210 Output: Urine 940 450 800 Other: Voiding Method Indwelling Catheter Indwelling Catheter Indwelling Catheter # Voids 0 # Bowel Movements 1 - Exam GENERAL EXAM: Alert, very pleasant, 79-year-old white female patient, on 2L., comfortable in no apparent distress.pulse ox in the order of 98% HEAD: Normocephalic/atraumatic. EYES: Normal reaction of pupils, equal size. Conjunctiva pink, sclera white. NOSE: Clear with pink turbinates. THROAT: No erythema or exudates. NECK: No masses, no JVD, no thyroid enlargement, no adenopathy. CHEST: No chest wall deformity. Symmetrical expansion. LUNGS: Equal air entry with bibasilar crackles, dementia breath sounds at the bases. wheeze, rhonchi or dullness. CVS: Regular rate and rhythm, normal S1 and S2, no gallops, no murmurs, no rubs ABDOMEN: Soft, nontender. No hepatosplenomegaly, normal bowel sounds, no guarding or rigidity. EXTREMITIES: No clubbing, mild pretibial edema, no cyanosis, 2+ pulses and upper and lower extremities. MUSCULOSKELETAL: Muscle strength and tone normal. SPINE: No scoliosis or deformity SKIN: No rashes CENTRAL NERVOUS SYSTEM: Alert and oriented -3. No focal deficits, tone is normal in all 4 extremities. PSYCHIATRIC: Alert and oriented -3. Appropriate affect. Intact judgment and insight. - Labs CBC & Chem 7: 12/20/19 10:29 10/30/19 05:50 Labs: Abnormal Lab Results - Last 24 Hours (Table) 10/29/19 10/29/19 10/29/19 Range/Units 06:30 16:56 20:29 Potassium (3.5-5.1) mmol/L Chloride (98-107) mmol/L Carbon Dioxide (22-30) mmol/L BUN (7-17) mg/dL Creatinine (0.52-1.04) mg/dL Glucose (74-99) mg/dL POC Glucose (mg/dL) 339 H 282 H (75-99) mg/dL Calcium (8.4-10.2) mg/dL Magnesium (1.6-2.3) mg/dL Iron 36 L (50-170) ug/dL % Saturation 10.71 L (12.00-45.00) 10/30/19 10/30/19 10/30/19 Range/Units 05:50 06:53 11:44 Potassium 3.2 L (3.5-5.1) mmol/L Chloride 95 L (98-107) mmol/L Carbon Dioxide 44 H* (22-30) mmol/L BUN 78 H (7-17) mg/dL Creatinine 1.64 H (0.52-1.04) mg/dL Glucose 146 H (74-99) mg/dL POC Glucose (mg/dL) 166 H 153 H (75-99) mg/dL Calcium 8.2 L (8.4-10.2) mg/dL Magnesium 3.0 H (1.6-2.3) mg/dL Iron (50-170) ug/dL % Saturation (12.00-45.00) Microbiology - Last 24 Hours (Table) 10/27/19 17:45 Gram Stain - Preliminary Pleural Fluid Body Fluid Culture - Preliminary Assessment and Plan Plan: #1. Acute on chronic hypoxic respiratory failure secondary to acute exacerbation of diastolic congestive heart failure, treated with IV Lasix and the patient underwent a thoracentesis of the right lung. Still awaiting the final fluid analysis to decide if this is a transudate or exudates. The patient was taken off IV Lasix to 2 metabolic alkalosis and acute kidney injury. Currently she is receiving Diamox. #2. Bilateral pleural effusions, right greater than left, related to acute CHF exacerbation, the patient is currently on a Lasix drip. The patient also had a thoracentesis of the bedside and the patient had a total of 4 50 mL of pleural fluid aspirated from the right lung. the final nature of the fluid in terms of transudate versus exudate is not back yet and this will be available hopefully within next 24-48 hours. The procedure was done without any complications. The patient is back on anticoagulation. #3. History of paroxysmal atrial fibrillation on Eliquis #4. Chronic kidney disease stage IIIi wth a component of acute kidney injury above her chronic kidney disease in the creatinine today is down to 2.0 and she was restarted back on Lasix. #5. History of TIA #'s. Hypertension #7. Seizure disorder #9. Generalized anxiety disorder Plan: agree on holding Lasix Renal function is improved Agree on Diamox awaiting the results of the fluid chemistry. Clinically stable on 2 L of oxygen by nasal cannula Creatinine is improving To follow.
[2019-10-30 17:00] LABS: Glucose,Whole Blood 215 mg/dL (75-99)
[2019-10-30] MEDS: PRAVASTATIN SODIUM 20 MG TAB PO SCH (17:08)
[2019-10-30 20:51] LABS: Glucose,Whole Blood 188 mg/dL (75-99)
[2019-10-30] MEDS: MELATONIN 5 MG TABLET PO SCH (21:52)
[2019-10-30] MEDS: INSULIN DETEMIR (LEVEMIR) 100 UNIT/ML SYR SQ SCH (21:52)
[2019-10-30] MEDS: acetaZOLAMIDE 250 MG TAB PO SCH (21:53)
[2019-10-31] MEDS: ALBUTEROL NEBULIZED 2.5 MG/3 ML INHALATION PRN ×3 (00:29→12:39)
[2019-10-31] MEDS ORDERED: Potassium Replacement Protocol 1 EACH MISC MISCELLANE PRN (05:54)
[2019-10-31] MEDS: POTASSIUM CHLORIDE ER 20 MEQ TAB.ER PO SCH ×2 (06:38→08:53)
[2019-10-31] MEDS: LEVOTHYROXINE 112 MCG TAB PO SCH (06:38)
[2019-10-31 06:55] LABS: Glucose,Whole Blood 129 mg/dL (75-99)
[2019-10-31] MEDS: INSULIN ASPART (NovoLOG) 100 UNIT/ML VIAL SQ SCH ×7 (07:00→20:39)
[2019-10-31] MEDS: BUDESONIDE 1 MG/2 ML NEBU INHALATION PRN (08:40)
[2019-10-31] MEDS: SERTRALINE 50 MG TAB PO SCH (08:52)
[2019-10-31] MEDS: APIXABAN 5 MG TAB PO SCH ×2 (08:52→20:38)
[2019-10-31] MEDS: acetaZOLAMIDE 250 MG TAB PO SCH ×2 (08:52→20:38)
[2019-10-31] MEDS: FERROUS SULFATE 325 MG TAB PO SCH ×2 (08:52→17:44)
[2019-10-31] MEDS: GABAPENTIN 100 MG CAP PO SCH ×2 (08:52→20:25)
[2019-10-31] MEDS: busPIRone HCl 10 MG TAB PO SCH ×2 (08:52→17:44)
[2019-10-31] MEDS: HYDROCORTISONE SUCCINATE 100 MG/2 ML VIAL IV SCH ×2 (08:53→20:38)
[2019-10-31] MEDS: DIVALPROEX SPRINKLE 125 MG CAP.SPRINK PO SCH (08:53)
[2019-10-31] MEDS: DICLOFENAC SODIUM GEL 100 GM TUBE TOPICAL SCH ×4 (08:54→22:00)
--- NOTE | 2019-10-31 11:45 | XR ---
EXAMINATION TYPE: XR chest 1V portable DATE OF EXAM: 10/31/2019 Comparison: 10/27/2019 Clinical History: 79 year-old female follow-up CHF Findings: Heart is mildly enlarged atherosclerotic arch calcifications. Increased interstitial density, similar to slightly increased. Small right greater than left pleural effusions with bibasilar opacities also able to slightly increased. Impression: 1. CHF with pulmonary vascular congestion, stable to slightly worsened. 2. Small right greater than left pleural effusions with adjacent atelectasis and/or consolidation, sl ightly worsened in the interval.
[2019-10-31 11:58] LABS: Glucose,Whole Blood 190 mg/dL (75-99)
--- NOTE | 2019-10-31 12:20 | P.PN ---
Subjective Progress Note Date: 10/31/19 Principal diagnosis: , Acute hypoxic rest or a failure related to diastolic CHF exacerbation This is 79-year-old white female patient of Dr. Mills, with past medical history of chronic congestive heart failure with diastolic dysfunction, hypertension, diabetes mellitus type 2, chronic kidney disease stage III, previous history of TIA/CVA, anxiety disorder, chronic atrial fibrillation on Eliquis, patient had been on home oxygen previously, currently not requiring home oxygen. Patient also has moderately severe pulmonary hypertension, PA systolic of 56 monos of mercury as seen on previous echocardiogram. We had previously seen the patient in consultation back in May for acute exacerbation of diastolic CHF, and earlier in the month in May for small left apical pneumothorax. Patient's sister gives history of previous thoracentesis at [facility], but she is unsure of the dates, and the results of of the fluid analysis. On 10/25/2019 patient was brought into the emergency department per EMS from her home for evaluation of increasing shortness of breath. Patient was being treated on an outpatient basis for fluid on her lungs, with no improvement. Patient denied any chest pain, denied any palpitations, denied any fever or chills, no cough or congestion, no hemoptysis. Chest x-ray showed worsening bilateral pleural effusions moderate size pocket on the right and small pocket on the left. EKG showed sinus bradycardia, with right bundle branch block with T-wave inversion in inferolateral leads. Echocardiogram showed left ventricular systolic function preserved with an EF of 65-70%. Right ventricle was severely enlarged, trace amount of aortic regurgitation however could not rule out aortic valve leaflet. Mild mitral regurg and severe tricuspid regurg with mild pulmonary hypertension with right-sided pressures of 42 mmHg. Patient was started on IV diuretics, however she has been borderline hypotensive, and hydrocortisone and Florinef were added per attending physician. She has been on BiPAP support with pressures of 14/6 and FiO2 of 50%. Labs were reviewed showing white blood cell count of 4.4, hemoglobin 10.4, B1 of 71 and creatinine is 1.38, proBNP was 70,009 100, troponin 0.056. Urinalysis was negative for signs of infection. On 10/26/2019 patient seen in follow-up in the intensive care unit, she is off BiPAP currently, she did wear through the night, currently on 4 L of oxygen, she states her breathing continues to improve, feeling better, no worsening dyspnea, she continues on Lasix infusion at 10 mg per hour, she is only very -279 mL fluid balance, his labs have been reviewed, and there has been worsening of her renal function, with B1 up to 80 and creatinine of 2.11, white blood cell count is 3.8, hemoglobin is 8.6. but clinically she states she is breathing easier today, Eliquis has been on hold. lung sounds reveal bibasilar crackles. repeat chest x-ray showed stable findings cardiomegaly with small to moderate right greater than left pleural effusions. On 10/31/2019 patient seen in follow-up on selective care unit, resting comfortably in bed, did not require BiPAP support last night, currently on 1 L of oxygen per nasal cannula, with a pulse ox of 91%, hemodynamically stable, no acute events overnight, follow-up chest x-ray was reviewed, still showing pulmonary vessel congestion, appears to be stable to slightly worsened, and small right greater than left pleural effusions with adjacent atelectasis. oxygenation has improved, FiO2 is down to 1 L. remains on Diamox at 250 mg twice daily, Lasix remains on hold. discharge planning is in progress for possible discharge to subacute rehab at [facility] rehab Objective - Vital Signs Vital signs: Vital Signs Temp 97.7 F 10/31/19 08:00 Pulse 66 10/31/19 08:53 Resp 20 10/31/19 08:00 BP 111/43 10/31/19 08:00 Pulse Ox 91 L 10/31/19 08:00 Intake & Output 10/30/19 10/31/19 10/31/19 18:59 06:59 18:59 Intake Total 450 135 Output Total 1000 600 Balance -550 -600 135 Weight 68.5 kg Intake: IV 120 15 .9 120 15 Oral 330 120 Output: Urine 1000 600 Other: Voiding Method Indwelling Catheter Indwelling Catheter Indwelling Catheter # Voids 0 # Bowel Movements 1 - Exam GENERAL EXAM: Alert, very pleasant, 79-year-old white female patient, on 1 L, the pulse ox of 91%, comfortable in no apparent distress. HEAD: Normocephalic/atraumatic. EYES: Normal reaction of pupils, equal size. Conjunctiva pink, sclera white. NOSE: Clear with pink turbinates. THROAT: No erythema or exudates. NECK: No masses, no JVD, no thyroid enlargement, no adenopathy. CHEST: No chest wall deformity. Symmetrical expansion. LUNGS: Equal air entry with bibasilar crackles, no wheeze, rhonchi or dullness. CVS: Regular rate and rhythm, normal S1 and S2, no gallops, no murmurs, no rubs ABDOMEN: Soft, nontender. No hepatosplenomegaly, normal bowel sounds, no gu arding or rigidity. EXTREMITIES: No clubbing, mild pretibial edema, no cyanosis, 2+ pulses and upper and lower extremities. MUSCULOSKELETAL: Muscle strength and tone normal. SPINE: No scoliosis or deformity SKIN: No rashes CENTRAL NERVOUS SYSTEM: Alert and oriented -3. No focal deficits, tone is n ormal in all 4 extremities. PSYCHIATRIC: Alert and oriented -3. Appropriate affect. Intact judgment and insight. - Labs CBC & Chem 7: 10/28/19 10:29 10/30/19 05:50 Labs: Abnormal Lab Results - Last 24 Hours (Table) 10/30/19 10/30/19 10/31/19 Range/Units 16:55 20:49 06:50 POC Glucose (mg/dL) 215 H 188 H 129 H (75-99) mg/dL 10/31/19 Range/Units 11:57 POC Glucose (mg/dL) 190 H (75-99) mg/dL Microbiology - Last 24 Hours (Table) 10/27/19 17:45 Gram Stain - Preliminary Pleural Fluid Body Fluid Culture - Preliminary Assessment and Plan Plan: Assessment: #1. Acute on chronic hypoxic respiratory failure secondary to acute exacerbation of diastolic congestive heart failure #2. Bilateral pleural effusions, right greater than left, related to acute CHF exacerbation #3. History of paroxysmal atrial fibrillation on Eliquis #4. Chronic kidney disease stage III #5. History of TIA #'s. Hypertension #7. Seizure disorder #9. Generalized anxiety disorder Plan: Cinically patient is stable, FiO2 is down to 1 L/m, no worsening dyspnea, did not require BiPAP support, Lasix remains on hold, patient continues on Diamox, no fever or chills, follow-up chest x-ray was reviewed showing CHF with pulmonary vessel congestion, stable to slightly worsened. Clinically remains stable, discharge planning in progress for possible discharge to subacute rehab at [facility]. I performed a history & physical examination of the patient and discussed their management with my nurse practitioner, Amelia Springer. I reviewed the nurse practitioner's note and agree with the documented findings and plan of care. Lung sounds are positive for crackles at the bases. The findings and the impression was discussed with the patient. I attest to the documentation by the nurse practitioner. Time with Patient: Less than 30
[2019-10-31 12:31] LABS: Calcium 8.6 mg/dL (8.4-10.2); Potassium 3.8 mmol/L (3.5-5.1)
--- NOTE | 2019-10-31 12:46 | P.PN ---
Subjective Progress Note Date: 10/31/19 This is 79-year-old female with history of diastolic congestive heart failure, hypertension, diabetes, chronic kidney disease, prior TIA, anxiety disorder, chronic persistent atrial fibrillation with moderately severe pulmonary hypertension who presented to the hospital with difficulty in breathi ng.she was initiated on IV Lasix drip yesterday, she diuresed well through the night last night. patient seen and examined this morning, she is off the BiPAP, on 4 L of oxygen, states overall that she's feeling better.hemoglobin today 8.6, platelet count 182. Sodium 139, potassium 4.7, BUN 80, and creatinine 2.1.Crystal is currently on hold for possible thoracentesis. 10/31/2019 Patient seen and examined this morning, sitting up in the chair at bedside, she did just ambulate with physical therapy but is complaining of feeling quite short of breath.her blood pressure 152/70 with a heart rate in the 60s, temperature 98.3 she is 97% on 2 L of oxygen.she is not currently on any diuretics. Her lungs reveal rales bilaterally, diminished air entry bilaterally, right greater than the left. Objective - Vital Signs Vital signs: Vital Signs Temp 98.3 F 10/31/19 12:00 Pulse 64 10/31/19 12:39 Resp 20 10/31/19 12:00 BP 153/70 10/31/19 12:00 Pulse Ox 97 10/31/19 12:00 Intake & Output 10/30/19 10/31/19 10/31/19 18:59 06:59 18:59 Intake Total 450 135 Output Total 1000 600 Balance -550 -600 135 Weight 68.5 kg Intake: IV 120 15 .9 120 15 Oral 330 120 Output: Urine 1000 600 Other: Voiding Method Indwelling Catheter Indwelling Catheter Indwelling Catheter # Voids 0 # Bowel Movements 1 - Exam GENERAL EXAM: Alert, very pleasant, 79-year-old white female patient, on 4 L., comfortable in no apparent distress. HEAD: Normocephalic/atraumatic. EYES: Normal reaction of pupils, equal size. Conjunctiva pink, sclera white. NOSE: Clear with pink turbinates. THROAT: No erythema or exudates. NECK: No masses, no JVD, no thyroid enlargement, no adenopathy. CHEST: No chest wall deformity. Symmetrical expansion. LUNGS: lungs reveal diminished air entry bilaterally to the bases, right greater than left, rales bilaterally. CVS: Regular rate and rhythm, normal S1 and S2, no gallops, no murmurs, no rubs ABDOMEN: Soft, nontender. No hepatosplenomegaly, normal bowel sounds, no guarding or rigidity. EXTREMITIES: No clubbing, mild pretibial edema, no cyanosis, 2+ pulses and upper and lower extremities. MUSCULOSKELETAL: Muscle strength and tone normal. SPINE: No scoliosis or deformity SKIN: No rashes CENTRAL NERVOUS SYSTEM: Alert and oriented -3. No focal deficits, tone is normal in all 4 extremities. PSYCHIATRIC: Alert and oriented -3. Appropriate affect. Intact judgment and insight. - Labs CBC & Chem 7: 10/28/19 10:29 10/31/19 11:27 Labs: Abnormal Lab Results - Last 24 Hours (Table) 10/30/19 10/30/19 10/31/19 Range/Units 16:55 20:49 06:50 Chloride (98-107) mmol/L Carbon Dioxide (22-30) mmol/L BUN (7-17) mg/dL Creatinine (0.52-1.04) mg/dL Glucose (74-99) mg/dL POC Glucose (mg/dL) 215 H 188 H 129 H (75-99) mg/dL 10/31/19 10/31/19 Range/Units 11:27 11:57 Chloride 97 L (98-107) mmol/L Carbon Dioxide 39 H (22-30) mmol/L BUN 65 H (7-17) mg/dL Creatinine 1.40 H (0.52-1.04) mg/dL Glucose 171 H (74-99) mg/dL POC Glucose (mg/dL) 190 H (75-99) mg/dL Microbiology - Last 24 Hours (Table) 10/27/19 17:45 Gram Stain - Preliminary Pleural Fluid Body Fluid Culture - Preliminary Assessment and Plan Plan: Assessment: #1. Acute on chronic hypoxic respiratory failure secondary to acute exacerbation of diastolic congestive heart failure #2. Bilateral pleural effusions, right greater than left, related to acute CHF exacerbation #3. History of paroxysmal atrial fibrillation on Eliquis #4. Chronic kidney disease stage III #5. History of TIA #'s. Hypertension #7. Seizure disorder #9. Generalized anxiety disorder Plan patient is currently not on any diuretics, we will discuss further with nephrology, it appears that she is more short of breath today, and will need some more IV diuresis. DNP note has been reviewed, I agree with a documented findings and plan of care. Patient was seen and examined.
[2019-10-31] MEDS ORDERED: FUROSEMIDE 10 MG/ML 4 ML VIAL IV STA (13:07)
--- NOTE | 2019-10-31 14:15 | PN ---
PROGRESS NOTE Patient is seen for followup for acute kidney injury. She is comfortable. Patient denies any significant complaints. Renal function has improved. No labs available from today. Lasix was decreased. Patient is currently on no diuretics. PHYSICAL EXAMINATION: On examination today, blood pressure was 111/43, heart rate 74 per minute, she is afebrile. Examination of the heart S1, S2. Examination of the lungs, decreased breath sounds at bases. Abdomen is soft, nontender. Examination of lower extremities shows trace edema. [employer] exam grossly intact. LABS: Labs are not available from today. Serum creatinine was 1.64 yesterday with CO2 of 44, sodium 144 and potassium 3.2. ASSESSMENT: 1. Acute kidney injury, mostly cardiorenal. Renal function stable. Creatinine has improved as of yesterday. Check labs today. 2. Metabolic alkalosis secondary to diuresis. Check labs today. Lasix is currently on hold. Basically all diuretics remain on hold. 3. Acute on chronic diastolic congestive heart failure with severe tricuspid regurgitation. 4. History of hypercalcemia. PLAN: Check labs today. Continue to hold off on diuretics for now. Continue with Diamox for the metabolic alkalosis. Repeat labs in a.m. MMODL / IJN: [id number] /
[2019-10-31 16:55] LABS: Glucose,Whole Blood 268 mg/dL (75-99)
[2019-10-31] MEDS: PRAVASTATIN SODIUM 20 MG TAB PO SCH (17:44)
--- NOTE | 2019-10-31 19:02 | P.PN ---
Subjective Progress Note Date: 10/31/19 This is a 79-year-old female patient of Dr. Mills with past medical history of chronic kidney disease stage III, atrial fibrillation, chronic hypoxic respiratory failure on 2 L home O2, diabetes mellitus type 2, history of TIA, hypertension, seizure disorder without any recent seizure activity, generalized anxiety disorder and recurrent depressionlast admitted 09/26/2019 for Hospital neuralgia, elevated troponin I ACS was ruled out, chronic anemia of chronic disease and generalized weakness secondary to E. coli UTI patient was sent in by the primary care physician for concern of shortness of breath that has worsened in the past few days. According to patient she has gained 30 poundsin the past month patient discharge rate is 58 kg and patient is currently 65 kg according to the ER rate. Chest x-ray was done that suggested bilateral pleural effusion worse on the on the right as compared to the left with bilateral basilar airspace disease. evaluation the lab patient had a hemoglobin of 10 and MCV 102, chloride 94 carbon dioxide 42, BUN 71 and creatinine 1.38, patient's baseline. Patient was started on Lasix drip and cardiology was consulted. Patient is currently on 4 L of oxygen saturating well. Does complain of shortness of breath associated with weakness but denies any chest pain palpitations. She has abdominal pain and bloating but denies any nausea or vomiting. 10/25: patient has been seen in the office and treated recently for anasarca for the past 3 weeks on Lasix and metolazone. She is also been treated for adrenal insufficiency and was started on Cortef. Patient denies any chest pain or shortness of breath, no dizziness at the time of this evaluation. Patient does not recall seen Dr. Gallardo yesterday in the emergency center. She has had a Fam catheter placed. Patient required nonrebreather is currently on high flow nasal cannula. Echocardiogram reveals EF 65-70%, severe concentric left ventricular hypertrophy, apical hypertrophic cardiomyopathy trace aortic regurgitation, cannot rule out vegetation on aortic valve, mild mitral regurgita tion, severe tricuspid regurgitation, mild pulmonary hypertension. Patient has been seen by cardiology and patient started on Lasix drip and zaroxolyn and aldactone. Chest ultrasound was done finding a right pleural effusion 7.7 cm and a left pleural effusion 1.6 cm. Pulmonary medicine is continuing diuretic therapy. Eliquis on hold for possible right-sided thoracentesis if shortness of breath worsens. 10/26 patient did have worsening shortness of breath overnight and has to be placed on BiPAP currently on 4 L of oxygen saturating at 100%. Patient is breathing better clinically. Urine output is still limited at 250 mL in 8 hours. ContinueLasix drip at 10. Aldactone continued at 25 mg twice a day Zaroxolyn discontinued yesterday. Continue with the high-dose hydrocortisone to 50 mg IV every 8 hours. Plan for possible thoracentesis tomorrow.labs reviewed hemoglobin stable at 8.6 slight increase in creatinine from 1.65-2.1 and increasing B UN 80. Glucose uncontrolled will increase Lantus to 22 units at bedtime 10/27 patient is stable currently resting in her bed. Endorses shortness of breath and neck pain. Patient complains of significant neck pain and started on morphine 2 mg every 6 hours. Currently on Lasix 10 mg/h with plan to do thoracentesis.vitals are stable with temp of 97.9 blood pressure 136/71 currently on 4 L of high flow nasal cannula.creatinine stable at 2.4 with BUN 86 which showed blood sugars has been reading high from 2:30 to 594 patient has been eating cookies brought in by the family. Will increase Levemir to 30 units and increase (lispro with meals. We will decrease hydrocortisone to 50 twice a day 10/28 patient examined bedside. Is comfortabledate of nasal cannula saturating well at 96%. Patient's vitals otherwise stable. She did underwent thoracentesis yesterday [id number] mL were removed. Pleural fluid analysis pending whether it is transudate or exudate. Pleural fluid was found to be loculated. Patient's Lasixdrip wasswitch to 40 IV twice a day. Blood sugars are still under control will have liver masses to 35 units and increase lispro with meals. Continue hydrocortisone 50 twice a day as patient's blood pressure is on the softer side.we will start patient on [id number] mg IV twice a day as patient continues to require diuresis. Possible plan to [facility] on Wednesday 10/31, patient hadimprovement of shortness of breath, however she still has dyspnea on exertion, nephrology is still actively diuresing herno plans for transfer to [facility], she is 97% on 2 L is a cannula, Lasix 40 mg given today by nephrology1 dose, all other diuretics are on hold. creatinine at 1.4, BUN 65hemoglobin from 3 days ago was 9.5,still has metabolic alkalosisappetite is marginal, no os predictive events, no chest pain palpitations, no leg edema that is new. Patient is on Diamox for metabolic alkalosis, chest x-ray showssmall ri ght greater than left pleural effusion, with atelectasis, slightly worsened in the interval, CHF with pulmonary vascular congestion slightly worsen, incentive spirometry added to treatment Objective - Vital Signs Vital signs: Vital Signs Temp 96.5 F L 10/31/19 16:00 Pulse 67 10/31/19 16:00 Resp 20 10/31/19 16:00 BP 170/83 10/31/19 16:00 Pulse Ox 97 10/31/19 16:00 Intake & Output 10/30/19 10/31/19 10/31/19 18:59 06:59 18:59 Intake Total 450 1155 Output Total 1000 600 900 Balance -550 -600 255 Weight 68.5 kg Intake: IV 120 15 .9 120 15 Oral 330 1140 Output: Urine 1000 600 900 Other: Voiding Method Indwelling Catheter Indwelling Catheter Indwelling Catheter # Voids 0 # Bowel Movements 1 - Constitutional General appearance: Present: cooperative, no acute distress - EENT Eyes: Present: anicteric sclerae, EOMI, PERRLA, dentition normal ENT: Present: hard of hearing, NA/AT, normal oropharynx - Neck Neck: Present: normal ROM - Respiratory Respiratory: bilateral: CTA - Gastrointestinal General gastrointestinal: Present: normal bowel sounds, soft - Integumentary Integumentary: Present: normal, normal turgor - Neurologic Neurologic: Present: CNII-XII intact - Musculoskeletal Musculoskeletal: Present: gait normal, strength equal bilaterally - Psychiatric Psychiatric: Present: A&O x's 3, appropriate affect - Labs CBC & Chem 7: 10/28/19 10:29 10/31/19 11:27 Labs: Abnormal Lab Results - Last 24 Hours (Table) 10/30/19 10/31/19 10/31/19 Range/Units 20:49 06:50 11:27 Chloride 97 L (98-107) mmol/L Carbon Dioxide 39 H (22-30) mmol/L BUN 65 H (7-17) mg/dL Creatinine 1.40 H (0.52-1.04) mg/dL Glucose 171 H (74-99) mg/dL POC Glucose (mg/dL) 188 H 129 H (75-99) mg/dL 10/31/19 10/31/19 Range/Units 11:57 16:54 Chloride (98-107) mmol/L Carbon Dioxide (22-30) mmol/L BUN (7-17) mg/dL Creatinine (0.52-1.04) mg/dL Glucose (74-99) mg/dL POC Glucose (mg/dL) 190 H 268 H (75-99) mg/dL Microbiology - Last 24 Hours (Table) 10/27/19 17:45 Gram Stain - Preliminary Pleural Fluid Body Fluid Culture - Preliminary Assessment and Plan Plan: Assessment and Plan Plan: 1. Acute on chronic hypoxic hypercarbic respiratory failuresecondary to bilateral pleural effusions and pulmonary edema, acute on chronic diastolic heart failure. onLasix 40 IV twice a day Lasix drip discontinued, Zaroxolyn1 dose, Aldactone. cardiology and pulmonary medicine on consult. Echocardiogram as above. continue to monitor I&O and daily weights. status post thoracentesis on 10/27 with removal of 450 mL of fluid. Pleural fluid analysis pending 2. metabolic alkalosis secondary to diuretics, diuretics are on hold, management of electrolytes by nephrology, on Diamox 3. Anemia of chronic disease Stool for occult blood was negative in the last admission. Hemoglobin has been stable. Continue ferrous sulfate 325 mg twice daily. 4. Generalized weakness. PT and OT on consult. Plan for subacute rehab at discharge. 5. Diabetes mellitus type 2 uncontrolled with hyperglycemia. Continue Levemir 30 units at bedtime, NovoLog 15 units with breakfast and lunch and 10 units with supper, continue NovoLog scale before meals and at bedtime. 6. Hypertension. Lasix 40 IV twice a day, Aldactone. 7. Atrial fibrillation, paroxysmal. Eliquis 5 mg po BID resumed 8. Chronic kidney disease stage III. Avoid nephrotoxic agents, hold lisinopril, baseline creatinine 1.5 - 1.8. Continue sodium bicarb 651 g twice daily. 9. Generalized anxiety disorder and recurrent depression. Continue Xanax 0.25 mg twice daily as needed and Zoloft 50 mg daily. 10. 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 11. Constipation - continue senna- docuaste as need for constipation 12. Hypothyroidism. Continue levothyroxine 112 g daily. 13. Hyperlipidemia. Continue pravastatin 20 mg at bedtime. 14. Adrenal insufficiency. Discontinue Florinef andCortef. Patient placed on hydrocortisone 50 milligrams IV every 12 hours. 15. GI prophylaxis and gastroesophageal reflux disease. Protonix twice daily and Carafate. 16. DVT prophylaxis. resume liquids Discharge plan: [place] under the care of Dr. Mills
[2019-10-31 20:14] LABS: Glucose,Whole Blood 221 mg/dL (75-99)
[2019-10-31] MEDS: INSULIN DETEMIR (LEVEMIR) 100 UNIT/ML SYR SQ SCH (20:39)
[2019-10-31] MEDS: MELATONIN 5 MG TABLET PO SCH (20:39)
[2019-11-01 06:34] LABS: Glucose,Whole Blood 153 mg/dL (75-99)
[2019-11-01] MEDS: LEVOTHYROXINE 112 MCG TAB PO SCH (07:01)
[2019-11-01] MEDS: INSULIN ASPART (NovoLOG) 100 UNIT/ML VIAL SQ SCH ×7 (07:01→21:19)
[2019-11-01 07:14] LABS: Calcium 8.5 mg/dL (8.4-10.2); Potassium 3.4 mmol/L (3.5-5.1)
[2019-11-01] MEDS ORDERED: Potassium Replacement Protocol 1 EACH MISC MISCELLANE PRN (07:35)
[2019-11-01] MEDS: ALBUTEROL NEBULIZED 2.5 MG/3 ML INHALATION PRN ×2 (09:13→20:25)
[2019-11-01] MEDS: BUDESONIDE 1 MG/2 ML NEBU INHALATION PRN ×2 (09:13→20:26)
[2019-11-01] MEDS: GABAPENTIN 100 MG CAP PO SCH ×2 (09:29→21:19)
[2019-11-01] MEDS: SERTRALINE 50 MG TAB PO SCH (09:30)
[2019-11-01] MEDS: busPIRone HCl 10 MG TAB PO SCH ×2 (09:30→17:27)
[2019-11-01] MEDS: APIXABAN 5 MG TAB PO SCH ×2 (09:30→21:19)
[2019-11-01] MEDS: POTASSIUM CHLORIDE ER 20 MEQ TAB.ER PO SCH ×2 (09:30→11:39)
[2019-11-01] MEDS: FERROUS SULFATE 325 MG TAB PO SCH ×2 (09:30→17:28)
[2019-11-01] MEDS: DIVALPROEX SPRINKLE 125 MG CAP.SPRINK PO SCH (09:30)
[2019-11-01] MEDS: acetaZOLAMIDE 250 MG TAB PO SCH ×2 (09:30→21:19)
[2019-11-01] MEDS: HYDROCORTISONE SUCCINATE 100 MG/2 ML VIAL IV SCH ×2 (09:31→21:18)
[2019-11-01] MEDS: DICLOFENAC SODIUM GEL 100 GM TUBE TOPICAL SCH ×4 (09:32→22:00)
[2019-11-01 11:32] LABS: Glucose,Whole Blood 130 mg/dL (75-99)
[2019-11-01] MEDS: ACETAMINOPHEN TAB 325 MG TAB PO PRN (11:39)
[2019-11-01 12:49] VITALS: BMI 26.4
[2019-11-01] MEDS ORDERED: POTASSIUM CHLORIDE ER 20 MEQ TAB.ER PO STA (13:34)
--- NOTE | 2019-11-01 13:37 | P.PN ---
Subjective Progress Note Date: 11/01/19 This is a 79-year-old female patient of Dr. Mills with past medical history of chronic kidney disease stage III, atrial fibrillation, chronic hypoxic respiratory failure on 2 L home O2, diabetes mellitus type 2, history of TIA, hypertension, seizure disorder without any recent seizure activity, generalized anxiety disorder and recurrent depressionlast admitted 09/26/2019 for Hospital neuralgia, elevated troponin I ACS was ruled out, chronic anemia of chronic disease and generalized weakness secondary to E. coli UTI patient was sent in by the primary care physician for concern of shortness of breath that has worsened in the past few days. According to patient she has gained 30 poundsin the past month patient discharge rate is 58 kg and patient is currently 65 kg according to the ER rate. Chest x-ray was done that suggested bilateral pleural effusion worse on the on the right as compared to the left with bilateral basilar airspace disease. evaluation the lab patient had a hemoglobin of 10 and MCV 102, chloride 94 carbon dioxide 42, BUN 71 and creatinine 1.38, patient's baseline. Patient was started on Lasix drip and cardiology was consulted. Patient is currently on 4 L of oxygen saturating well. Does complain of shortness of breath associated with weakness but denies any chest pain palpitations. She has abdominal pain and bloating but denies any nausea or vomiting. 10/25: patient has been seen in the office and treated recently for anasarca for the past 3 weeks on Lasix and metolazone. She is also been treated for adrenal insufficiency and was started on Cortef. Patient denies any chest pain or shortness of breath, no dizziness at the time of this evaluation. Patient does not recall seen Dr. Gallardo yesterday in the emergency center. She has had a Fam catheter placed. Patient required nonrebreather is currently on high flow nasal cannula. Echocardiogram reveals EF 65-70%, severe concentric left ventricular hypertrophy, apical hypertrophic cardiomyopathy trace aortic regurgitation, cannot rule out vegetation on aortic valve, mild mitral regurgita tion, severe tricuspid regurgitation, mild pulmonary hypertension. Patient has been seen by cardiology and patient started on Lasix drip and zaroxolyn and aldactone. Chest ultrasound was done finding a right pleural effusion 7.7 cm and a left pleural effusion 1.6 cm. Pulmonary medicine is continuing diuretic therapy. Eliquis on hold for possible right-sided thoracentesis if shortness of breath worsens. 10/26 patient did have worsening shortness of breath overnight and has to be placed on BiPAP currently on 4 L of oxygen saturating at 100%. Patient is breathing better clinically. Urine output is still limited at 250 mL in 8 hours. ContinueLasix drip at 10. Aldactone continued at 25 mg twice a day Zaroxolyn discontinued yesterday. Continue with the high-dose hydrocortisone to 50 mg IV every 8 hours. Plan for possible thoracentesis tomorrow.labs reviewed hemoglobin stable at 8.6 slight increase in creatinine from 1.65-2.1 and increasing B UN 80. Glucose uncontrolled will increase Lantus to 22 units at bedtime 10/27 patient is stable currently resting in her bed. Endorses shortness of breath and neck pain. Patient complains of significant neck pain and started on morphine 2 mg every 6 hours. Currently on Lasix 10 mg/h with plan to do thoracentesis.vitals are stable with temp of 97.9 blood pressure 136/71 currently on 4 L of high flow nasal cannula.creatinine stable at 2.4 with BUN 86 which showed blood sugars has been reading high from 2:30 to 594 patient has been eating cookies brought in by the family. Will increase Levemir to 30 units and increase (lispro with meals. We will decrease hydrocortisone to 50 twice a day 10/28 patient examined bedside. Is comfortabledate of nasal cannula saturating well at 96%. Patient's vitals otherwise stable. She did underwent thoracentesis yesterday [id number] mL were removed. Pleural fluid analysis pending whether it is transudate or exudate. Pleural fluid was found to be loculated. Patient's Lasixdrip wasswitch to 40 IV twice a day. Blood sugars are still under control will have liver masses to 35 units and increase lispro with meals. Continue hydrocortisone 50 twice a day as patient's blood pressure is on the softer side.we will start patient on [id number] mg IV twice a day as patient continues to require diuresis. Possible plan to [facility] on Wednesday 10/31, patient hadimprovement of shortness of breath, however she still has dyspnea on exertion, nephrology is still actively diuresing herno plans for transfer to [facility], she is 97% on 2 L is a cannula, Lasix 40 mg given today by nephrology1 dose, all other diuretics are on hold. creatinine at 1.4, BUN 65hemoglobin from 3 days ago was 9.5,still has metabolic alkalosisappetite is marginal, no os predictive events, no chest pain palpitations, no leg edema that is new. Patient is on Diamox for metabolic alkalosis, chest x-ray showssmall ri ght greater than left pleural effusion, with atelectasis, slightly worsened in the interval, CHF with pulmonary vascular congestion slightly worsen, incentive spirometry added to treatment 11/01:, Patient continues to improve, no chest x-rays are available for review today, discharge planning is in progress, once cleared by nephrology and cardiology creatinine are not 1.3, potassium 3.4, potassium will be replaced, and repeat chest x-ray in the morning, metabolic alkalosis is improving, patient is still not on any maintenance diuretics except for Diamox no fever no chills noaspirative events no chest pain, denies PND no lower extremity edema, Fam catheter is in place, which we will discontinue the morning blood sugars between 113 268 Review of Systems Constitutional: Denies chills, Denies fever, Denies lethargy, Denies malaise, Denies poor appetite, endorses weakness, endorses weight gain Eyes: denies decreased vision, denies diplopia, denies discharge, denies pain Ears: deny: decreased hearing Ears, nose, mouth and throat: Denies dental pain, Denies headache, Denies nasal discharge, Denies nose pain Cardiovascular: Denies chest pain,endorses decreased exercise tolerance, Denies edema, Denies high blood pressure, Denies irregular heart beat, Denies palpitations, Denies paroxysmal nocturnal dyspnea, Denies rapid heart beat, endorsesshortness of breath Respiratory: Denies congestion, Denies cough, Denies cough with sputum, endorses dyspnea, Denies home oxygen, Denies wheezing Gastrointestinal: Denies abdominal pain, Denies change in bowel habits, Denies coffee ground emesis, Denies early satiety, Denies excessive gas, Denies heartburn, Denies hematemesis, Denies hematochezia, Denies loss of appetite, Denies nausea, Denies vomiting Genitourinary: Denies dysuria, Denies flank pain, Denies kidney stones, Denies menorrhagia, Denies urgency, Denies urinary frequency Musculoskeletal: Denies gait dysfunction, Denies limitation of motion, Denies morning stiffness, Denies muscle crampsendorses neck pain Integumentary: Denies rash, Denies wounds, Denies brittle nails, Denies change in hair/nails, Denies darkening of skin Neurological: Denies balance difficulties, Denies change in speech, Denies double vision, Denies gait dysfunction, Denies loss of vision, Denies motor disturbance, Denies numbness, Denies paralysis, Denies paresthesias, Denies seizures Psychiatric: Denies anxiety, Denies depression Endocrine: Denies excessive sweating, Denies excessive thirst, Denies high blood sugars, Denies palpitations Hematologic/Lymphatic: Denies easy bruising, Denies lymphadenopathy Objective - Vital Signs Vital signs: Vital Signs Temp 97.6 F 11/01/19 11:46 Pulse 60 11/01/19 11:46 Resp 16 11/01/19 11:46 BP 163/70 11/01/19 11:46 Pulse Ox 100 11/01/19 11:46 Intake & Output 10/31/19 11/01/19 11/01/19 18:59 06:59 18:59 Intake Total 1155 305 Output Total 900 350 500 Balance 255 -350 -195 Weight 67.7 kg 67.7 kg Intake: IV 15 .9 15 Oral 1140 305 Output: Urine 900 350 500 Uretheral (Fam) 500 Other: Voiding Method Indwelling Catheter Indwelling Catheter Indwelling Catheter # Bowel Movements 1 1 - Constitutional General appearance: Present: cooperative, no acute distress - EENT Eyes: Present: anicteric sclerae, PERRLA, dentition normal, normal appearance ENT: Present: NA/AT, normal oropharynx - Neck Neck: Present: normal ROM - Respiratory Respiratory: bilateral: CTA, negative: diminished, dullness, rales, rhonchi - Cardiovascular Rhythm: regular Heart sounds: normal: S1, S2 Abnormal Heart Sounds: Absent: systolic murmur, diastolic murmur, rub, S3 Gallop, S4 Gallop, click, other - Gastrointestinal General gastrointestinal: Present: normal bowel sounds - Integumentary Integumentary: Present: decreased turgor, normal - Neurologic Neurologic: Present: CNII-XII intact - Musculoskeletal Musculoskeletal: Present: gait normal, generalized weakness, strength equal bilaterally - Labs CBC & Chem 7: 10/28/19 10:29 11/01/19 05:58 Labs: Abnormal Lab Results - Last 24 Hours (Table) 10/31/19 10/31/19 11/01/19 Range/Units 16:54 20:13 05:58 Potassium 3.4 L (3.5-5.1) mmol/L Carbon Dioxide 39 H (22-30) mmol/L BUN 62 H (7-17) mg/dL Creatinine 1.30 H (0.52-1.04) mg/dL Glucose 101 H (74-99) mg/dL POC Glucose (mg/dL) 268 H 221 H (75-99) mg/dL 11/01/19 11/01/19 Range/Units 06:32 11:30 Potassium (3.5-5.1) mmol/L Carbon Dioxide (22-30) mmol/L BUN (7-17) mg/dL Creatinine (0.52-1.04) mg/dL Glucose (74-99) mg/dL POC Glucose (mg/dL) 153 H 130 H (75-99) mg/dL Microbiology - Last 24 Hours (Table) 10/27/19 17:45 Gram Stain - Final Pleural Fluid Body Fluid Culture - Final Assessment and Plan Plan: Assessment and Plan Plan: 1. Acute on chronic hypoxic hypercarbic respiratory failuresecondary to bilateral pleural effusions and pulmonary edema, acute on chronic diastolic heart failure. onLasix 40 IV twice a day Lasix drip discontinued, Zaroxolyn1 dose, Aldactone. cardiology and pulmonary medicine on consult. Echocardiogram as above. continue to monitor I&O and daily weights. status post thoracentesis on 10/27 with removal of 450 mL of fluid. Pleural fluid analysis pending, repeat chest x-ray November 02, 2. metabolic alkalosis secondary to diuretics, diuretics are on hold, management of electrolytes by nephrology, on Diamox 250 twice a day 3. Anemia of chronic disease Stool for occult blood was negative in the last admission. Hemoglobin has been stable. Continue ferrous sulfate 325 mg twice daily. 4. Generalized weakness. PT and OT on consult. Plan for subacute rehab at discharge. 5. Diabetes mellitus type 2 uncontrolled with hyperglycemia. Continue Levemir 30 units at bedtime, NovoLog 15 units with breakfast and lunch and 10 units with supper, continue NovoLog scale before meals and at bedtime. 6. Hypertension. Lasix 40 IV twice a day, Aldactone. 7. Atrial fibrillation, paroxysmal. Eliquis 5 mg po BID resumed 8. Chronic kidney disease stage III. Avoid nephrotoxic agents, hold lisinopril, baseline creatinine 1.5 - 1.8. Continue sodium bicarb 651 g twice daily. 9. Generalized anxiety disorder and recurrent depression. Continue Xanax 0.25 mg twice daily as needed and Zoloft 50 mg daily. 10. 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 11. Constipation - continue senna- docuaste as need for constipation 12. Hypothyroidism. Continue levothyroxine 112 g daily. 13. Hyperlipidemia. Continue pravastatin 20 mg at bedtime. 14. Adrenal insufficiency. Discontinue Florinef andCortef. Patient placed on hydrocortisone 50 milligrams IV every 12 hours. 15. GI prophylaxis and gastroesophageal reflux disease. Protonix twice daily and Carafate. 16. DVT prophylaxis. resume liquids Discharge plan: [place] under the care of Dr. Mills
--- NOTE | 2019-11-01 14:20 | P.PN ---
Subjective Progress Note Date: 11/01/19 Principal diagnosis: Pt is seen for f/u for FREYA, cardiorenal and sec to volume depletion. S/p IVF, then developed volume overload last couple of daus. S/p IV lasix yesterday. Doing well. Cr down to 1.3/ Plans for possible discharge today. Objective - Vital Signs Vital signs: Vital Signs Temp 97.6 F 11/01/19 11:46 Pulse 60 11/01/19 11:46 Resp 16 11/01/19 11:46 BP 163/70 11/01/19 11:46 Pulse Ox 100 11/01/19 11:46 Intake & Output 10/31/19 11/01/19 11/01/19 18:59 06:59 18:59 Intake Total 1155 305 Output Total 900 350 500 Balance 255 -350 -195 Weight 67.7 kg 67.7 kg Intake: IV 15 .9 15 Oral 1140 305 Output: Urine 900 350 500 Uretheral (Fam) 500 Other: Voiding Method Indwelling Catheter Indwelling Catheter Indwelling Catheter # Bowel Movements 1 1 - Constitutional General appearance: Present: average body habitus, cooperative, no acute distress - EENT Eyes: Present: PERRLA, normal appearance - Neck Neck: Present: normal ROM - Respiratory Respiratory: bilateral: CTA - Cardiovascular Heart sounds: normal: S1, S2 - Peripheral edema leg Peripheral Edema: bilateral: None - Gastrointestinal General gastrointestinal: Present: normal bowel sounds, soft - Integumentary Integumentary Comment(s): chronic skin changes in legs. Integumentary: Present: normal - Neurologic Neurologic Comment(s): [employer]MENT[employer] grossly intact - Labs CBC & Chem 7: 10/28/19 10:29 11/01/19 05:58 Labs: Abnormal Lab Results - Last 24 Hours (Table) 10/31/19 10/31/19 11/01/19 Range/Units 16:54 20:13 05:58 Potassium 3.4 L (3.5-5.1) mmol/L Carbon Dioxide 39 H (22-30) mmol/L BUN 62 H (7-17) mg/dL Creatinine 1.30 H (0.52-1.04) mg/dL Glucose 101 H (74-99) mg/dL POC Glucose (mg/dL) 268 H 221 H (75-99) mg/dL 11/01/19 11/01/19 Range/Units 06:32 11:30 Potassium (3.5-5.1) mmol/L Carbon Dioxide (22-30) mmol/L BUN (7-17) mg/dL Creatinine (0.52-1.04) mg/dL Glucose (74-99) mg/dL POC Glucose (mg/dL) 153 H 130 H (75-99) mg/dL Microbiology - Last 24 Hours (Table) 10/27/19 17:45 Gram Stain - Final Pleural Fluid Body Fluid Culture - Final Assessment and Plan Assessment: 1. FREYA, Pre renal, resolved. S/p IVF Can resume home diuretics. 2. Volume overload, s/p IV lasix yesterday. Resume po loop diuretics. 4. Metabolic alkalosis, on diamox, improved. 5. Hypokalemia, s/p replacement. 6. CKD sec to nephrosclerosis, base line cr 1.5-1.7mg/dL. PLAN Resume home dose of loop diuretics. OK for discharge from nephro stand point.
[2019-11-01] MEDS: FUROSEMIDE 40 MG TAB PO SCH (15:23)
[2019-11-01 16:51] LABS: Glucose,Whole Blood 200 mg/dL (75-99)
[2019-11-01] MEDS: PRAVASTATIN SODIUM 20 MG TAB PO SCH (17:27)
--- NOTE | 2019-11-01 18:42 | P.PN ---
Subjective Progress Note Date: 11/01/19 This is a 79-year-old female who was admitted with the and diastolic congestive heart failure, hypertension, diabetes, chronic kidney disease. Patient complains of exertional shortness of breath. Patient was seen by Dr. Caraballo and wanted to resume his oral Lasix. Doesn't appear to be in acute distress. Lungs show diminished breath sounds bilaterally. Heart rate is in the 60s. Blood pressure is fluctuating between 160-120. Her saturation about 98% on room air. Patient will continue current medical therapy. Possible discharge within next 24-48 hours Objective - Vital Signs Vital signs: Vital Signs Temp 97.7 F 11/01/19 15:32 Pulse 70 11/01/19 15:32 Resp 18 11/01/19 15:32 BP 125/60 11/01/19 15:32 Pulse Ox 98 11/01/19 15:32 Intake & Output 10/31/19 11/01/19 11/01/19 18:59 06:59 18:59 Intake Total 1155 325 Output Total 900 350 600 Balance 255 -350 -275 Weight 67.7 kg 67.7 kg Intake: IV 15 .9 15 Oral 1140 325 Output: Urine 900 350 600 Uretheral (Fam) 500 Other: Voiding Method Indwelling Catheter Indwelling Catheter Indwelling Catheter # Bowel Movements 1 2 - Exam GENERAL EXAM: Patient is alert and oriented and doesn't appear to be in any acute distress HEENT: Normocephalic. Normal reaction of pupils, equal size, normal range of extraocular motion. No erythema or exudates in the throat. NECK: No masses, no nuchal rigidity. CHEST: No chest wall deformity. LUNGS: Diminished breath sounds HEART: S1 and S2 normal with no audible mumurs or gallops. Regular rhythm, femorals equal on both sides.. ABDOMEN: No hepatosplenomegaly, normal bowel sounds, no guarding or rigidity. SKIN: No rashes CENTRAL NERVOUS SYSTEM: No focal deficits. EXTREMITIES: No cyanosis, clubbing or edema. - Labs CBC & Chem 7: 10/28/19 10:29 11/01/19 05:58 Labs: Abnormal Lab Results - Last 24 Hours (Table) 10/31/19 11/01/19 11/01/19 Range/Units 20:13 05:58 06:32 Potassium 3.4 L (3.5-5.1) mmol/L Carbon Dioxide 39 H (22-30) mmol/L BUN 62 H (7-17) mg/dL Creatinine 1.30 H (0.52-1.04) mg/dL Glucose 101 H (74-99) mg/dL POC Glucose (mg/dL) 221 H 153 H (75-99) mg/dL 11/01/19 11/01/19 Range/Units 11:30 16:49 Potassium (3.5-5.1) mmol/L Carbon Dioxide (22-30) mmol/L BUN (7-17) mg/dL Creatinine (0.52-1.04) mg/dL Glucose (74-99) mg/dL POC Glucose (mg/dL) 130 H 200 H (75-99) mg/dL Microbiology - Last 24 Hours (Table) 10/27/19 17:45 Gram Stain - Final Pleural Fluid Body Fluid Culture - Final Assessment and Plan (1) FREYA (acute kidney injury) Current Visit: No Status: Acute Code(s): N17.9 - ACUTE KIDNEY FAILURE, UNSPECIFIED SNOMED Code(s): 36851069 (2) Anemia Current Visit: No Status: Acute Code(s): D64.9 - ANEMIA, UNSPECIFIED SNOMED Code(s): 843318123 (3) Congestive heart failure Current Visit: No Status: Acute Code(s): I50.9 - HEART FAILURE, UNSPECIFIED SNOMED Code(s): 10298608 (4) HTN (hypertension) Current Visit: No Status: Acute Code(s): I10 - ESSENTIAL (PRIMARY) HYPERTENSION SNOMED Code(s): 79039764 Plan: Resume by mouth diuretics as for nephrology. Continue rest of the medication. Increase activity as tolerated. Possible discharge within next 24-48 hours
[2019-11-01 21:06] LABS: Glucose,Whole Blood 198 mg/dL (75-99)
[2019-11-01] MEDS: MELATONIN 5 MG TABLET PO SCH (21:19)
[2019-11-01] MEDS: INSULIN DETEMIR (LEVEMIR) 100 UNIT/ML SYR SQ SCH (21:19)
[2019-11-02 06:37] LABS: Glucose,Whole Blood 171 mg/dL (75-99)
[2019-11-02 06:56] LABS: Calcium 8.5 mg/dL (8.4-10.2); Potassium 3.6 mmol/L (3.5-5.1)
[2019-11-02] MEDS: ALBUTEROL NEBULIZED 2.5 MG/3 ML INHALATION PRN (07:01)
[2019-11-02] MEDS: BUDESONIDE 1 MG/2 ML NEBU INHALATION PRN (07:01)
[2019-11-02] MEDS: INSULIN ASPART (NovoLOG) 100 UNIT/ML VIAL SQ SCH ×7 (07:05→21:46)
[2019-11-02] MEDS: LEVOTHYROXINE 112 MCG TAB PO SCH (07:06)
--- NOTE | 2019-11-02 07:15 | XR ---
EXAMINATION TYPE: XR chest 2V DATE OF EXAM: 11/02/2019 COMPARISON: [id number] HISTORY: Shortness of breath TECHNIQUE: Frontal and lateral views of the chest are obtained. FINDINGS: Scattered senescent parenchymal changes noted. Hyperinflation compatible with COPD. Bilateral pleural effusions, cardiomegaly and pulmonary venous congestion persists without significan t interval change. Mediastinal structures are stable and grossly unremarkable. No evidence for hilar prominence. Degenerative changes dorsal spine. IMPRESSION: 1. Bilateral pleural effusions, cardiomegaly and pulmonary venous congestion persists without signifi cant interval change.
[2019-11-02] MEDS ORDERED: POTASSIUM CHLORIDE ER 20 MEQ TAB.ER PO SCH (08:00)
[2019-11-02] MEDS: DIVALPROEX SPRINKLE 125 MG CAP.SPRINK PO SCH (08:53)
[2019-11-02] MEDS: acetaZOLAMIDE 250 MG TAB PO SCH ×2 (08:53→23:09)
[2019-11-02] MEDS: FERROUS SULFATE 325 MG TAB PO SCH ×2 (08:53→15:22)
[2019-11-02] MEDS: busPIRone HCl 10 MG TAB PO SCH ×2 (08:53→15:22)
[2019-11-02] MEDS: GABAPENTIN 100 MG CAP PO SCH ×2 (08:53→21:45)
[2019-11-02] MEDS: APIXABAN 5 MG TAB PO SCH ×2 (08:53→21:45)
[2019-11-02] MEDS: SERTRALINE 50 MG TAB PO SCH (08:53)
[2019-11-02] MEDS: FUROSEMIDE 40 MG TAB PO SCH ×2 (08:53→15:22)
[2019-11-02] MEDS: HYDROCORTISONE SUCCINATE 100 MG/2 ML VIAL IV SCH (08:53)
[2019-11-02] MEDS: DICLOFENAC SODIUM GEL 100 GM TUBE TOPICAL SCH ×4 (08:54→21:46)
[2019-11-02] MEDS ORDERED: FUROSEMIDE 10 MG/ML 4 ML VIAL IV STA (09:52)
[2019-11-02 12:29] LABS: Glucose,Whole Blood 108 mg/dL (75-99)
--- NOTE | 2019-11-02 13:18 | P.PN ---
Subjective Progress Note Date: 11/02/19 This is a 79-year-old female patient of Dr. Mills with past medical history of chronic kidney disease stage III, atrial fibrillation, chronic hypoxic respiratory failure on 2 L home O2, diabetes mellitus type 2, history of TIA, hypertension, seizure disorder without any recent seizure activity, generalized anxiety disorder and recurrent depressionlast admitted 09/26/2019 for Hospital neuralgia, elevated troponin I ACS was ruled out, chronic anemia of chronic disease and generalized weakness secondary to E. coli UTI patient was sent in by the primary care physician for concern of shortness of breath that has worsened in the past few days. According to patient she has gained 30 poundsin the past month patient discharge rate is 58 kg and patient is currently 65 kg according to the ER rate. Chest x-ray was done that suggested bilateral pleural effusion worse on the on the right as compared to the left with bilateral basilar airspace disease. evaluation the lab patient had a hemoglobin of 10 and MCV 102, chloride 94 carbon dioxide 42, BUN 71 and creatinine 1.38, patient's baseline. Patient was started on Lasix drip and cardiology was consulted. Patient is currently on 4 L of oxygen saturating well. Does complain of shortness of breath associated with weakness but denies any chest pain palpitations. She has abdominal pain and bloating but denies any nausea or vomiting. 10/25: patient has been seen in the office and treated recently for anasarca for the past 3 weeks on Lasix and metolazone. She is also been treated for adrenal insufficiency and was started on Cortef. Patient denies any chest pain or shortness of breath, no dizziness at the time of this evaluation. Patient does not recall seen Dr. Gallardo yesterday in the emergency center. She has had a Fam catheter placed. Patient required nonrebreather is currently on high flow nasal cannula. Echocardiogram reveals EF 65-70%, severe concentric left ventricular hypertrophy, apical hypertrophic cardiomyopathy trace aortic regurgitation, cannot rule out vegetation on aortic valve, mild mitral regurgita tion, severe tricuspid regurgitation, mild pulmonary hypertension. Patient has been seen by cardiology and patient started on Lasix drip and zaroxolyn and aldactone. Chest ultrasound was done finding a right pleural effusion 7.7 cm and a left pleural effusion 1.6 cm. Pulmonary medicine is continuing diuretic therapy. Eliquis on hold for possible right-sided thoracentesis if shortness of breath worsens. 10/26 patient did have worsening shortness of breath overnight and has to be placed on BiPAP currently on 4 L of oxygen saturating at 100%. Patient is breathing better clinically. Urine output is still limited at 250 mL in 8 hours. ContinueLasix drip at 10. Aldactone continued at 25 mg twice a day Zaroxolyn discontinued yesterday. Continue with the high-dose hydrocortisone to 50 mg IV every 8 hours. Plan for possible thoracentesis tomorrow.labs reviewed hemoglobin stable at 8.6 slight increase in creatinine from 1.65-2.1 and increasing B UN 80. Glucose uncontrolled will increase Lantus to 22 units at bedtime 10/27 patient is stable currently resting in her bed. Endorses shortness of breath and neck pain. Patient complains of significant neck pain and started on morphine 2 mg every 6 hours. Currently on Lasix 10 mg/h with plan to do thoracentesis.vitals are stable with temp of 97.9 blood pressure 136/71 currently on 4 L of high flow nasal cannula.creatinine stable at 2.4 with BUN 86 which showed blood sugars has been reading high from 2:30 to 594 patient has been eating cookies brought in by the family. Will increase Levemir to 30 units and increase (lispro with meals. We will decrease hydrocortisone to 50 twice a day 10/28 patient examined bedside. Is comfortabledate of nasal cannula saturating well at 96%. Patient's vitals otherwise stable. She did underwent thoracentesis yesterday [id number] mL were removed. Pleural fluid analysis pending whether it is transudate or exudate. Pleural fluid was found to be loculated. Patient's Lasixdrip wasswitch to 40 IV twice a day. Blood sugars are still under control will have liver masses to 35 units and increase lispro with meals. Continue hydrocortisone 50 twice a day as patient's blood pressure is on the softer side.we will start patient on mg IV twice a day as patient continues to require diuresis. Possible plan to [facility] on Wednesday 10/31, patient hadimprovement of shortness of breath, however she still has dyspnea on exertion, nephrology is still actively diuresing herno plans for transfer to [facility], she is 97% on 2 L is a cannula, Lasix 40 mg given today by nephrology1 dose, all other diuretics are on hold. creatinine at 1.4, BUN 65hemoglobin from 3 days ago was 9.5,still has metabolic alkalosisappetite is marginal, no os predictive events, no chest pain palpitations, no leg edema that is new. Patient is on Diamox for metabolic alkalosis, chest x-ray showssmall ri ght greater than left pleural effusion, with atelectasis, slightly worsened in the interval, CHF with pulmonary vascular congestion slightly worsen, incentive spirometry added to treatment 11/01:, Patient continues to improve, no chest x-rays are available for review today, discharge planning is in progress, once cleared by nephrology and cardiology creatinine are not 1.3, potassium 3.4, potassium will be replaced, and repeat chest x-ray in the morning, metabolic alkalosis is improving, patient is still not on any maintenance diuretics except for Diamox no fever no chills noaspirative events no chest pain, denies PND no lower extremity edema, Fam catheter is in place, which we will discontinue the morning blood sugars between 113 268 11/01: Patient is followed by Dr. Caraballo from nephrology, and requested that the Lasix be restarted at 40 mg twice a day, patient is off Diamox, patient is cleared by cardiology also, was anticipating her discharge to [facility] in the morning, [facility] creatinine today 1.26, pCO2 of 34, has been drowsy on my evaluation today however she had breakfast, she answers to questions appropriately, no missed pills specially her antiseizure medication no narcotics given within the past 24 hours, blood sugars are stable 11/02, patient is drowsy today but she was able to get breakfst, no new dyspnea, or chest pain, no palpitation, therapeis on gpoing, lasix given today, nephrology releasing her for dischage with her own home dose diuretic, c02 better along with improving Review of Systems Constitutional: Denies chills, Denies fever, Denies lethargy, Denies malaise, Denies poor appetite, endorses weakness, endorses weight gain Eyes: denies decreased vision, denies diplopia, denies discharge, denies pain Ears: deny: decreased hearing Ears, nose, mouth and throat: Denies dental pain, Denies headache, Denies nasal discharge, Denies nose pain Cardiovascular: Denies chest pain,endorses decreased exercise tolerance, Denies edema, Denies high blood pressure, Denies irregular heart beat, Denies palpitations, Denies paroxysmal nocturnal dyspnea, Denies rapid heart beat, endorsesshortness of breath Respiratory: Denies congestion, Denies cough, Denies cough with sputum, endorses dyspnea, Denies home oxygen, Denies wheezing Gastrointestinal: Denies abdominal pain, Denies change in bowel habits, Denies coffee ground emesis, Denies early satiety, Denies excessive gas, Denies heartburn, Denies hematemesis, Denies hematochezia, Denies loss of appetite, Denies nausea, Denies vomiting Genitourinary: Denies dysuria, Denies flank pain, Denies kidney stones, Denies menorrhagia, Denies urgency, Denies urinary frequency Musculoskeletal: Denies gait dysfunction, Denies limitation of motion, Denies morning stiffness, Denies muscle crampsendorses neck pain Integumentary: Denies rash, Denies wounds, Denies brittle nails, Denies change in hair/nails, Denies darkening of skin Neurological: Denies balance difficulties, Denies change in speech, Denies double vision, Denies gait dysfunction, Denies loss of vision, Denies motor disturbance, Denies numbness, Denies paralysis, Denies paresthesias, Denies seizures Psychiatric: Denies anxiety, Denies depression Endocrine: Denies excessive sweating, Denies excessive thirst, Denies high blood sugars, Denies palpitations Hematologic/Lymphatic: Denies easy bruising, Denies lymphadenopathy Objective - Vital Signs Vital signs: Vital Signs Temp 97.8 F 11/02/19 08:10 Pulse 70 11/02/19 11:00 Resp 16 11/02/19 11:00 BP 128/64 11/02/19 11:00 Pulse Ox 97 11/02/19 11:00 Intake & Output 11/01/19 11/02/19 11/02/19 18:59 06:59 18:59 Intake Total 325 120 Output Total 600 350 800 Balance -275 -350 -680 Weight 67.7 kg 71 kg Intake: Oral 325 120 Output: Urine 600 350 800 Uretheral (Fam) 500 Other: Voiding Method Indwelling Catheter Indwelling Catheter Indwelling Catheter # Bowel Movements 2 - Constitutional General appearance: Present: cooperative, no acute distress - EENT Eyes: Present: EOMI, PERRLA, normal appearance ENT: Present: NA/AT, normal oropharynx - Neck Neck: Present: normal ROM - Respiratory Respiratory: bilateral: CTA, negative: diminished, dullness - Cardiovascular Rhythm: regular Heart sounds: normal: S1, S2 Abnormal Heart Sounds: Absent: systolic murmur, diastolic murmur, rub, S3 Gallop, S4 Gallop, click, other - Gastrointestinal General gastrointestinal: Present: normal bowel sounds, soft - Integumentary Integumentary: Present: normal - Musculoskeletal Musculoskeletal: Present: generalized weakness, strength equal bilaterally - Psychiatric Psychiatric: Present: appropriate affect - Labs CBC & Chem 7: 10/28/19 10:29 11/03/19 06:43 Labs: Abnormal Lab Results - Last 24 Hours (Table) 11/01/19 11/01/19 11/02/19 Range/Units 16:49 21:04 06:06 Carbon Dioxide 34 H (22-30) mmol/L BUN 55 H (7-17) mg/dL Creatinine 1.26 H (0.52-1.04) mg/dL Glucose 177 H (74-99) mg/dL POC Glucose (mg/dL) 200 H 198 H (75-99) mg/dL 11/02/19 11/02/19 Range/Units 06:36 12:05 Carbon Dioxide (22-30) mmol/L BUN (7-17) mg/dL Creatinine (0.52-1.04) mg/dL Glucose (74-99) mg/dL POC Glucose (mg/dL) 171 H 108 H (75-99) mg/dL Microbiology - Last 24 Hours (Table) 10/27/19 17:45 Gram Stain - Final Pleural Fluid Body Fluid Culture - Final Assessment and Plan Plan: Assessment and Plan Plan: 1. Acute on chronic hypoxic hypercarbic respiratory failuresecondary to bilateral pleural effusions and pulmonary edema, acute on chronic diastolic heart failure. onLasix 40 IV twice a day Lasix drip discontinued, Zaroxolyn1 dose, Aldactone. cardiology and pulmonary medicine on consult. Echocardiogram as above. continue to monitor I&O and daily weights. status post thoracentesis on 10/27 with removal of 450 mL of fluid. Pleural fluid analysis pending, repeat chest x-ray November 02, bilateral pleural effusion with pulmonary venous congestion without any significant interval change Lasix restarted 40 twice a day 2. metabolic alkalosis secondary to diuretics, diuretics are on hold, management of electrolytes by nephrology, on Diamox 250 twice a day 3. Anemia of chronic disease Stool for occult blood was negative in the last admission. Hemoglobin has been stable. Continue ferrous sulfate 325 mg twice daily. 4. Generalized weakness. PT and OT on consult. Plan for subacute rehab at discharge. 5. Diabetes mellitus type 2 uncontrolled with hyperglycemia. Continue Levemir 30 units at bedtime, NovoLog 15 units with breakfast and lunch and 10 units with supper, continue NovoLog scale before meals and at bedtime. 6. Hypertension. Lasix 40 IV twice a day, Aldactone. 7. Atrial fibrillation, paroxysmal. Eliquis 5 mg po BID resumed 8. Chronic kidney disease stage III. Avoid nephrotoxic agents, hold lisinopril, baseline creatinine 1.5 - 1.8. Continue sodium bicarb 651 g twice daily. 9. Generalized anxiety disorder and recurrent depression. Continue Xanax 0.25 mg twice daily as needed and Zoloft 50 mg daily. 10. 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 11. Constipation - continue senna- docuaste as need for constipation 12. Hypothyroidism. Continue levothyroxine 112 g daily. 13. Hyperlipidemia. Continue pravastatin 20 mg at bedtime. 14. Adrenal insufficiency. Discontinue Florinef andCortef. Patient placed on hydrocortisone 50 milligrams IV every 12 hours., We will switch to hydrocortisone 20 mg morning and 10 in the evening 15. GI prophylaxis and gastroesophageal reflux disease. Protonix twice daily and Carafate. 16. DVT prophylaxis. resume liquids Discharge plan: [place] under the care of Dr. Mills on November 03
--- NOTE | 2019-11-02 13:54 | PN ---
PROGRESS NOTE Patient is seen for followup for acute kidney injury and chronic kidney disease. She was started back on her home dose of oral diuretics. Patient denies any significant complaints. PHYSICAL EXAMINATION: This morning blood pressure is 103/55, heart rate 70 per minute, she is afebrile. Examination of the heart S1, S2. Examination of the lungs, bilateral breath sounds are heard. Abdomen is soft, nontender. Examination lower extremities shows edema 1+ bilaterally. [employer] exam grossly intact. LABS: Sodium of 144, potassium 3.6, chloride 102, CO2 is 34, BUN 55, creatinine 1.26. ASSESSMENT: 1. Acute kidney injury, prerenal on admission, currently improved. The patient did get IV fluids for a short period time. However, she was hypervolemic and therefore fluids were discontinued and she is back on her diuretics. This morning patient is a little bit more short of breath than yesterday. I will give her an extra dose of IV Lasix. 2. Congestive heart failure, acute on top of chronic, mainly diastolic. 3. Chronic kidney disease, NKF stage 3, secondary to nephrosclerosis. Baseline creatinine 1.5-1.7. 4. Hypokalemia, status post replacement. 5. Metabolic alkalosis on Diamox, now improved. PLAN: Extra dose of IV Lasix today. Continue with the home dose of oral diuretics. Patient is stable for discharge from Nephrology standpoint. MMODL / IJN: [id number] /
[2019-11-02] MEDS: PRAVASTATIN SODIUM 20 MG TAB PO SCH (15:22)
[2019-11-02 17:02] LABS: Glucose,Whole Blood 268 mg/dL (75-99)
[2019-11-02] MEDS: HYDROCORTISONE 10 MG TAB PO SCH (17:03)
[2019-11-02 20:26] LABS: Glucose,Whole Blood 295 mg/dL (75-99)
[2019-11-02] MEDS: MELATONIN 5 MG TABLET PO SCH (21:45)
[2019-11-02] MEDS: INSULIN DETEMIR (LEVEMIR) 100 UNIT/ML SYR SQ SCH (21:46)
[2019-11-03 06:47] LABS: Glucose,Whole Blood 75 mg/dL (75-99)
[2019-11-03] MEDS: INSULIN ASPART (NovoLOG) 100 UNIT/ML VIAL SQ SCH ×6 (06:54→17:21)
[2019-11-03] MEDS: LEVOTHYROXINE 112 MCG TAB PO SCH (07:12)
[2019-11-03 07:50] LABS: Calcium 8.2 mg/dL (8.4-10.2); Potassium 3.5 mmol/L (3.5-5.1)
[2019-11-03] MEDS: BUDESONIDE 1 MG/2 ML NEBU INHALATION PRN (08:19)
[2019-11-03] MEDS: ALBUTEROL NEBULIZED 2.5 MG/3 ML INHALATION PRN (08:19)
[2019-11-03] MEDS ORDERED: HYDROCORTISONE 20 MG TAB PO SCH (09:00)
[2019-11-03 09:44] VITALS: RESP 16
[2019-11-03] MEDS: FERROUS SULFATE 325 MG TAB PO SCH ×2 (10:29→17:46)
[2019-11-03] MEDS: DIVALPROEX SPRINKLE 125 MG CAP.SPRINK PO SCH (10:29)
[2019-11-03] MEDS: acetaZOLAMIDE 250 MG TAB PO SCH (10:30)
[2019-11-03] MEDS: DICLOFENAC SODIUM GEL 100 GM TUBE TOPICAL SCH ×3 (10:30→17:46)
[2019-11-03] MEDS: SERTRALINE 50 MG TAB PO SCH (10:30)
[2019-11-03] MEDS: busPIRone HCl 10 MG TAB PO SCH ×2 (10:30→17:46)
[2019-11-03] MEDS: APIXABAN 5 MG TAB PO SCH (10:30)
[2019-11-03] MEDS: GABAPENTIN 100 MG CAP PO SCH (10:30)
[2019-11-03] MEDS: FUROSEMIDE 40 MG TAB PO SCH ×2 (10:30→17:46)
[2019-11-03 12:04] LABS: Glucose,Whole Blood 89 mg/dL (75-99)
--- NOTE | 2019-11-03 14:51 | P.DS ---
Providers Date of admission: 10/24/19 12:58 Expected date of discharge: 11/03/19 Attending physician: Nadira Gallardo MD Consults: 10/24/19 12:58 Consult Physician Routine Consulting Provider: [facility] Consult Reason/Comments: Acute pulmonary edema Do you want consulting provider notified?: Yes 10/24/19 16:08 Consult Physician Routine Consulting Provider: Mp Munoz Consult Reason/Comments: pulmonary edema Do you want consulting provider notified?: Yes 10/27/19 18:11 Consult Physician Routine Consulting Provider: Zeny Caraballo Consult Reason/Comments: increased creatnine with lasix gtt Do you want consulting provider notified?: Yes, Notify in am Primary care physician: [facility] Course: This is a 79-year-old female patient of Dr. Mills with past medical history of chronic kidney disease stage III, atrial fibrillation, chronic hypoxic respiratory failure on 2 L home O2, diabetes mellitus type 2, history of TIA, hypertension, seizure disorder without any recent seizure activity, generalized anxiety disorder and recurrent depressionlast admitted 09/26/2019 for Hospital neuralgia, elevated troponin I ACS was ruled out, chronic anemia of chronic disease and generalized weakness secondary to E. coli UTI patient was sent in by the primary care physician for concern of shortness of breath that has worsened in the past few days. According to patient she has gained 30 poundsin the past month patient discharge rate is 58 kg and patient is currently 65 kg according to the ER rate. Chest x-ray was done that suggested bilateral pleural effusion worse on the on the right as compared to the left with bilateral basilar airspace disease. evaluation the lab patient had a hemoglobin of 10 and MCV 102, chloride 94 carbon dioxide 42, BUN 71 and creatinine 1.38, patient's baseline. Patient was started on Lasix drip and cardiology was consulted. Patient is currently on 4 L of oxygen saturating well. Does complain of shortness of breath associated with weakness but denies any chest pain palpitations. She has abdominal pain and bloating but denies any nausea or vomiting. 10/25: patient has been seen in the office and treated recently for anasarca for the past 3 weeks on Lasix and metolazone. She is also been treated for adrenal insufficiency and was started on Cortef. Patient denies any chest pain or sh ortness of breath, no dizziness at the time of this evaluation. Patient does not recall seen Dr. Gallardo yesterday in the emergency center. She has had a Fam catheter placed. Patient required nonrebreather is currently on high flow nasal cannula. Echocardiogram reveals EF 65-70%, severe concentric left ventricular hypertrophy, apical hypertrophic cardiomyopathy trace aortic regurgitation, cannot rule out vegetation on aortic valve, mild mitral regurgitation, severe tricuspid regurgitation, mild pulmonary hypertension. Patient has been seen by cardiology and patient started on Lasix drip and zaroxolyn and aldactone. Chest ultrasound was done finding a right pleural effusion 7.7 cm and a left pleural effusion 1.6 cm. Pulmonary medicine is continuing diuretic therapy. Eliquis on hold for possible right-sided thoracentesis if shortness of breath worsens. 10/26 patient did have worsening shortness of breath overnight and has to be placed on BiPAP currently on 4 L of oxygen saturating at 100%. Patient is breathing better clinically. Urine output is still limited at 250 mL in 8 hours. ContinueLasix drip at 10. Aldactone continued at 25 mg twice a day Zaroxolyn discontinued yesterday. Continue with the high-dose hydrocortisone to 50 mg IV every 8 hours. Plan for possible thoracentesis tomorrow.labs reviewed hemoglobin stable at 8.6 slight increase in creatinine from 1.65-2.1 and increasing B UN 80. Glucose uncontrolled will increase Lantus to 22 units at bedtime 10/27 patient is stable currently resting in her bed. Endorses shortness of breath and neck pain. Patient complains of significant neck pain and started on morphine 2 mg every 6 hours. Currently on Lasix 10 mg/h with plan to do thoracentesis.vitals are stable with temp of 97.9 blood pressure 136/71 c urrently on 4 L of high flow nasal cannula.creatinine stable at 2.4 with BUN 86 which showed blood sugars has been reading high from 2:30 to 594 patient has been eating cookies brought in by the family. Will increase Levemir to 30 units and increase (lispro with meals. We will decrease hydrocortisone to 50 twice a day 10/28 patient examined bedside. Is comfortabledate of nasal cannula saturating well at 96%. Patient's vitals otherwise stable. She did underwent thoracentesis yesterday [id number] mL were removed. Pleural fluid analysis pending whether it is transudate or exudate. Pleural fluid was found to be loculated. Patient's Lasixdrip wasswitch to 40 IV twice a day. Blood sugars are still under control will have liver masses to 35 units and increase lispro with meals. Continue hydrocortisone 50 twice a day as patient's blood pressure is on the softer side.we will start patient on [id number] mg IV twice a day as patient continues to require diuresis. Possible plan to [facility] on Wednesday 10/31, patient hadimprovement of shortness of breath, however she still has dyspnea on exertion, nephrology is still actively diuresing herno plans for transfer to ECF, she is 97% on 2 L is a cannula, Lasix 40 mg given today by nephrology1 dose, all other diuretics are on hold. creatinine at 1.4, BUN 65hemoglobin from 3 days ago was 9.5,still has metabolic alkalosisappetite is marginal, no os predictive events, no chest pain palpitations, no leg edema that is new. Patient is on Diamox for metabolic alkalosis, chest x-ray showssmall right greater than left pleural effusion, with atelectasis, slightly worsened in the interval, CHF with pulmonary vascular congestion slightly worsen, incentive spirometry added to treatment 11/01:, Patient continues to improve, no chest x-rays are available for review today, discharge planning is in progress, once cleared by nephrology and cardiology creatinine are not 1.3, potassium 3.4, potassium will be replaced, and repeat chest x-ray in the morning, metabolic alkalosis is improving, patient is still not on any maintenance diuretics except for Diamox no fever no chills noaspirative events no chest pain, denies PND no lower extremity edema, Fam catheter is in place, which we will discontinue the morning blood sugars between 113 268 11/01: Patient is followed by Dr. Caraballo from nephrology, and requested that the Lasix be restarted at 40 mg twice a day, patient is off Diamox, patient is cleared by cardiology also, was anticipating her discharge to skilled ECF in the morning, [facility] creatinine today 1.26, pCO2 of 34, has been drowsy on my evaluation today however she had breakfast, she answers to questions appropriately, no missed pills specially her antiseizure medication no narcotics given within the past 24 hours, blood sugars are stable 11/02, patient is drowsy today but she was able to get breakfst, no new dyspnea, or chest pain, no palpitation, therapeis on gpoing, lasix given today, nephrology releasing her for dischage with her own home dose diuretic, c02 better along with improving reat 11/03, alert and coherent, feels well, no new edema o dyspahgia, shortness of breath none, has no fever, will transfer to [facility] to continue on skilled therpies. no seizure activity while here. but depakote dose need to be reviewed at [facility] according to her previous dosing schedule. depakote and lab cbc cmp to be done in [address] Harris pcp. at [facility] FINAL DIAGNOSIS 1. Acute on chronic hypoxic hypercarbic respiratory failuresecondary to bilateral pleural effusions and pulmonary edema, acute on chronic diastolic heart failure. onLasix 40 IV twice a day Lasix drip discontinued, Zaroxolyn1 dose, Aldactone. cardiology and pulmonary medicine on consult. Echocardiogram as above. continue to monitor I&O and daily weights. status post thoracentesis on 10/27 with removal of 450 mL of fluid. Pleural fluid analysis pending, repeat chest x-ray November 02, bilateral pleural effusion with pulmonary venous congestion without any significant interval change Lasix restarted 40 twice a day, diamox continue, 2. metabolic alkalosis secondary to diuretics, improved management of electrolytes by nephrology, on Diamox 250 twice a day, will need eval sleep study as OP 3. Anemia of chronic disease Stool for occult blood was negative in the last admission. Hemoglobin has been stable. Continue ferrous sulfate 325 mg twice daily. 4. Generalized weakness. PT and OT on consult. Plan for subacute rehab at discharge. 5. Diabetes mellitus type 2 uncontrolled with hyperglycemia. Continue Levemir 30 units at bedtime, NovoLog 15 units with breakfast and lunch and 10 units with supper, continue NovoLog scale before meals and at bedtime. 6. Hypertension. Lasix 40 IV twice a day, Aldactone. 7. Atrial fibrillation, paroxysmal. Eliquis 5 mg po BID resumed 8. Chronic kidney disease stage III. Avoid nephrotoxic agents, hold lisinopril, baseline creatinine 1.5 - 1.8. Continue sodium bicarb 651 g twice daily. 9. Generalized anxiety disorder and recurrent depression. Continue Xanax 0.25 mg twice daily as needed and Zoloft 50 mg daily. 10. 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 11. Constipation - continue senna- docuaste as need for constipation 12. Hypothyroidism. Continue levothyroxine 112 g daily. 13. Hyperlipidemia. Continue pravastatin 20 mg at bedtime. 14. Adrenal insufficiency. Discontinue Florinef andCortef. Patient placed on hydrocortisone 50 milligrams IV every 12 hours., We will switch to hydroc ortisone 20 mg morning and 10 in the evening 15. GI prophylaxis and gastroesophageal reflux disease. Protonix twice daily and Carafate. 16. DVT prophylaxis. resume liquids Discharge plan: [place] under the care of Dr. Mills on November 03 Plan - Discharge Summary New Discharge Prescriptions: New Hydrocortisone [Cortef] 10 mg PO 1800 tab Hydrocortisone [Cortef] 20 mg PO DAILY tab acetaZOLAMIDE [Diamox] 250 mg PO BID tab Continue Pravastatin Sodium [Pravachol] 20 mg PO DAILY@1700 Apixaban [Eliquis] 5 mg PO BID@0800,1700 Budesonide 1 mg INHALATION RT-BID PRN PRN Reason: Shortness Of Breath Divalproex Sodium [Depakote Sprinkle] 500 mg PO DAILY@0800 Ferrous Sulfate [Iron (65 MG Elemental)] 325 mg PO BID@0800,1700 Levothyroxine Sodium 112 mcg PO DAILY@0600 Lisinopril [Prinivil] 5 mg PO DAILY@0800 Magnesium Oxide 400 mg PO DAILY@1700 Melatonin 10 mg PO HS@2100 Sertraline [Zoloft] 50 mg PO DAILY@0800 Sucralfate [Carafate] 1 gm PO ACHS PRN PRN Reason: Gi Upset Albuterol Nebulized [Ventolin Nebulized] 2.5 mg INHALATION RT-Q4H PRN PRN Reason: Shortness Of Breath Acetaminophen Tab [Tylenol] 650 mg PO Q6H PRN PRN Reason: Pain Multivitamins, Thera [Multivitamin (formulary)] 1 tab PO DAILY@1700 Cyanocobalamin (Vitamin B-12) [Vitamin B-12] 1,000 mcg PO DAILY@1700 INSULIN ASPART (NovoLOG) [NovoLOG (formulary)] 5 unit SQ AC-SUPPER vial Diclofenac Sodium Gel [Voltaren Gel] 4 gm TOPICAL QID tube Sennosides-Docusate Sodium [Senokot-S] 2 tab PO DAILY PRN PRN Reason: Constipation INSULIN ASPART (NovoLOG) [NovoLOG (formulary)] See Protocol SQ ACHS Sodium Bicarbonate Tab 650 mg PO BID@0800,1700 INSULIN ASPART (NovoLOG) [NovoLOG (formulary)] 8 unit SQ BID@0700,1100 hydrALAZINE HCL [Apresoline] 25 mg PO BID@0800,1700 busPIRone HCl [Buspar] 10 mg PO BID@0800,1700 Furosemide [Lasix] 40 mg PO BID@0600,1400 Gabapentin [Neurontin] 100 mg PO BID@0800,2100 Fludrocortisone Acetate 0.1 mg PO BID@0800,1700 Propranolol LA [Inderal LA] 60 mg PO DAILY@0800 Epoetin Stevan [Procrit] 10,000 unit IM FR Metolazone [Zaroxolyn] 2.5 mg PO DAILY@1400 Insulin Detemir (Levemir) [Levemir] 18 unit SQ HS@2100 Aspirin 81 mg PO DAILY@1700 Spironolactone [Aldactone] 25 mg PO DAILY@0800 Discontinued Hydrocortisone [Cortef] 5 mg PO HS@2130 Hydrocortisone 10 mg PO DAILY@0800 Discharge Medication List Pravastatin Sodium [Pravachol] 20 mg PO DAILY@1700 04/23/14 [History] Acetaminophen Tab [Tylenol] 650 mg PO Q6H PRN 05/20/19 [History] Albuterol Nebulized [Ventolin Nebulized] 2.5 mg INHALATION RT-Q4H PRN 05/20/19 [History] Apixaban [Eliquis] 5 mg PO BID@0800,1700 05/20/19 [History] Budesonide 1 mg INHALATION RT-BID PRN 05/20/19 [History] Divalproex Sodium [Depakote Sprinkle] 500 mg PO DAILY@0800 05/20/19 [History] Ferrous Sulfate [Iron (65 MG Elemental)] 325 mg PO BID@0800,1700 05/20/19 [History] Levothyroxine Sodium 112 mcg PO DAILY@0600 05/20/19 [History] Lisinopril [Prinivil] 5 mg PO DAILY@0800 05/20/19 [History] Magnesium Oxide 400 mg PO DAILY@1700 05/20/19 [History] Melatonin 10 mg PO HS@209905/20/19 [History] Sertraline [Zoloft] 50 mg PO DAILY@0800 05/20/19 [History] Sucralfate [Carafate] 1 gm PO ACHS PRN 05/20/19 [History] Multivitamins, Thera [Multivitamin (formulary)] 1 tab PO DAILY@17009/23/19 [History] Cyanocobalamin (Vitamin B-12) [Vitamin B-12] 1,000 mcg PO DAILY@1700 09/26/19 [History] Diclofenac Sodium Gel [Voltaren Gel] 4 gm TOPICAL QID tube 09/29/19 [Rx] INSULIN ASPART (NovoLOG) [NovoLOG (formulary)] 5 unit SQ AC-SUPPER vial 09/29/19 [Rx] Aspirin 81 mg PO DAILY@169910/24/19 [History] Epoetin Stevan [Procrit] 10,000 unit IM FR 10/24/19 [History] Fludrocortisone Acetate 0.1 mg PO BID@0800,1700 10/24/19 [History] Furosemide [Lasix] 40 mg PO BID@0600,1400 10/24/19 [History] Gabapentin [Neurontin] 100 mg PO BID@0800,209910/24/19 [History] INSULIN ASPART (NovoLOG) [NovoLOG (formulary)] 8 unit SQ BID@0700,1100 10/24/19 [History] INSULIN ASPART (NovoLOG) [NovoLOG (formulary)] See Protocol SQ ACHS 10/24/19 [ History] Insulin Detemir (Levemir) [Levemir] 18 unit SQ HS@209910/24/19 [History] Metolazone [Zaroxolyn] 2.5 mg PO DAILY@1400 10/24/19 [History] Propranolol LA [Inderal LA] 60 mg PO DAILY@0800 10/24/19 [History] Sennosides-Docusate Sodium [Senokot-S] 2 tab PO DAILY PRN 10/24/19 [History] Sodium Bicarbonate Tab 650 mg PO BID@0800,1700 10/24/19 [History] Spironolactone [Aldactone] 25 mg PO DAILY@0800 10/24/19 [History] busPIRone HCl [Buspar] 10 mg PO BID@0800,1700 10/24/19 [History] hydrALAZINE HCL [Apresoline] 25 mg PO BID@0800,1700 10/24/19 [History] Hydrocortisone [Cortef] 10 mg PO 1800 tab 11/03/19 [Rx] Hydrocortisone [Cortef] 20 mg PO DAILY tab 11/03/19 [Rx] acetaZOLAMIDE [Diamox] 250 mg PO BID tab 11/03/19 [Rx] Follow up Appointment(s)/Referral(s): Zeny Caraballo MD [STAFF PHYSICIAN] - 2 Weeks Sánchez Rae MD [STAFF PHYSICIAN] - 11/10/19 1:45 pm () Eleazar Mills MD [Primary Care Provider] - 1-2 days (Post ECF) Mp Munoz MD [STAFF PHYSICIAN] - 10 Days Discharge Disposition: TRANSFER TO SNF/ECF
[2019-11-03 17:00] LABS: Glucose,Whole Blood 139 mg/dL (75-99)
[2019-11-03 17:19] VITALS: BP 135/71; PULSE 65; TEMP 97.6
--- NOTE | 2019-11-03 17:23 | PN ---
PROGRESS NOTE Patient is seen for followup for CKD and CHF. She is currently doing well. Patient's renal function has improved since admission. She is comfortable. Blood pressure is 127/66, heart rate 67 per minute. She is afebrile. EXAMINATION OF THE HEART: S1 and S2. EXAMINATION OF LUNGS: Bilateral breath sounds are heard. ABDOMEN: Soft, non-tender. Examination of lower extremities shows edema 1+ bilaterally. [employer] exam is grossly intact. LABS: Sodium 147, potassium 3.5, chloride 104. Co2 is 39. BUN 57, creatinine 1.35. ASSESSMENT: 1. Acute kidney injury, initially prerenal, now improved. Diuretics were held. Patient received IV fluids. Currently she is back on her diuretics. Renal function is stable, creatinine staying at about 1.3 mg/dL. 2. Congestive heart failure; diastolic dysfunction, ejection fraction 65% to 70%. Hypertrophic cardiomyopathy. 3. Chronic kidney disease, stage III, secondary to nephrosclerosis. Baseline creatinine about 1.7 to 1.5 mg/dL. 4. Hypokalemia. 5. Metabolic alkalosis, status post Diamox. PLAN: Patient is stable for discharge. Continue current dose of diuretics. Monitor labs as outpatient. We can likely discontinue the Diamox in a week's time post discharge. MMODL / IJN: [id number] /
[2019-11-03] MEDS: HYDROCORTISONE 10 MG TAB PO SCH (17:46)
[2019-11-03] MEDS: PRAVASTATIN SODIUM 20 MG TAB PO SCH (17:46)
== END 2019-11-03 21:50 | DRG 291 ==
LOC: EC 11:02 → 3SCARD 12:58
PROVIDERS: ADMIT Internal Medicine; ATTEND Internal Medicine
PROC: 0W993ZZ Drainage of Right Pleural Cavity, Percutaneous Approach (ICD-10-PCS; principal; 2019-10-27)
PROC: 5A09357 Assistance with Respiratory Ventilation, Less than 24 Consecutive Hours, Continuous Positive Airway Pressure (ICD-10-PCS; 2019-10-28)
DX: I13.0 Hypertensive heart and chronic kidney disease with heart failure and stage 1 through stage 4 chronic kidney disease, or unspecified chronic kidney disease (principal); I50.33 Acute on chronic diastolic (congestive) heart failure; J96.22 Acute and chronic respiratory failure with hypercapnia; J96.21 Acute and chronic respiratory failure with hypoxia; E87.3 Alkalosis; F33.9 Major depressive disorder, recurrent, unspecified; J91.8 Pleural effusion in other conditions classified elsewhere; N17.9 Acute kidney failure, unspecified; N39.0 Urinary tract infection, site not specified; J98.11 Atelectasis; E27.40 Unspecified adrenocortical insufficiency; I48.19 Other persistent atrial fibrillation; I27.29 Other secondary pulmonary hypertension; I25.10 Atherosclerotic heart disease of native coronary artery without angina pectoris; I08.1 Rheumatic disorders of both mitral and tricuspid valves; I42.2 Other hypertrophic cardiomyopathy; E11.65 Type 2 diabetes mellitus with hyperglycemia; E11.22 Type 2 diabetes mellitus with diabetic chronic kidney disease; E03.9 Hypothyroidism, unspecified; B96.20 Unspecified Escherichia coli [E. coli] as the cause of diseases classified elsewhere; D63.8 Anemia in other chronic diseases classified elsewhere; E78.5 Hyperlipidemia, unspecified; E83.41 Hypermagnesemia; E83.52 Hypercalcemia; E87.6 Hypokalemia; F41.1 Generalized anxiety disorder; G40.909 Epilepsy, unspecified, not intractable, without status epilepticus; G47.33 Obstructive sleep apnea (adult) (pediatric); K59.00 Constipation, unspecified; K21.9 Gastro-esophageal reflux disease without esophagitis; N18.3 Chronic kidney disease, stage 3 (moderate); E86.9 Volume depletion, unspecified; I42.5 Other restrictive cardiomyopathy; I45.10 Unspecified right bundle-branch block; T50.2X5A Adverse effect of carbonic-anhydrase inhibitors, benzothiadiazides and other diuretics, initial encounter; Z79.4 Long term (current) use of insulin; Z79.01 Long term (current) use of anticoagulants; Z79.82 Long term (current) use of aspirin; Z79.890 Hormone replacement therapy; Z79.899 Other long term (current) drug therapy; Z80.8 Family history of malignant neoplasm of other organs or systems; Z82.49 Family history of ischemic heart disease and other diseases of the circulatory system; Z86.73 Personal history of transient ischemic attack (TIA), and cerebral infarction without residual deficits; Z90.710 Acquired absence of both cervix and uterus; Z99.81 Dependence on supplemental oxygen
CPT/HCPCS: 36415; 71045; 71046; 76604; 80048; 80053; 81001; 82607; 82746; 83540; 83550; 83735; 83880; 84484; 85025; 85610; 85730; 86850; 86900; 86901; 87070; 87205; 89050; 93306; 94640; 94660; 94760; 96365; 96375; 99285

== ENCOUNTER 2019-11-08 14:13 | Emergency (ER) | payer MEDICARE, OTHER ==
[2019-11-08 14:23] LABS: Glucose,Whole Blood 180 mg/dL (75-99)
[2019-11-08] MEDS ORDERED: FAMOTIDINE 20 MG/2 ML VIAL IV STA (14:23)
[2019-11-08] MEDS ORDERED: diphenhydrAMINE 50 MG/ML 1 ML VIAL IVP STA (14:23)
[2019-11-08] MEDS ORDERED: methylPREDNISolone SOD SUCCI 125 MG/2 ML VIAL IV STA (14:23)
--- NOTE | 2019-11-08 14:28 | ED ---
General Adult HPI - General Stated complaint: CVA Time Seen by Provider: 11/08/19 14:16 Source: patient, EMS, RN notes reviewed Mode of arrival: EMS Limitations: no limitations - History of Present Illness Initial comments: Patient is a pleasant 79-year-old female presenting to the emergency Department with left-sided weakness. Patient does have history of stroke years ago with some chronic left-sided weakness. Patient states weakness is worse today. Last known well was around 8:00 when she went to bed last night. Patient woke up around 9 this morning and weakness was present at that time. Weakness has been persistent. Patient does not feel confused. Weakness is left arm and left leg. Blood sugar was somewhat low in the 50s prior to arrival. - Related Data Home Medications Medication Instructions Recorded Confirmed Pravastatin Sodium [Pravachol] 20 mg PO DAILY@1700 04/23/14 10/24/19 Acetaminophen Tab [Tylenol] 650 mg PO Q6H PRN 05/20/19 10/24/19 Albuterol Nebulized [Ventolin 2.5 mg INHALATION RT-Q4H PRN 05/20/19 10/24/19 Nebulized] Apixaban [Eliquis] 5 mg PO BID@0800,1700 05/20/19 10/24/19 Budesonide 1 mg INHALATION RT-BID PRN 05/20/19 10/24/19 Divalproex Sodium [Depakote 500 mg PO DAILY@0800 05/20/19 10/24/19 Sprinkle] Ferrous Sulfate [Iron (65 MG 325 mg PO BID@0800,1700 05/20/19 10/24/19 Elemental)] Levothyroxine Sodium 112 mcg PO DAILY@0600 05/20/19 10/24/19 Lisinopril [Prinivil] 5 mg PO DAILY@0800 05/20/19 10/24/19 Magnesium Oxide 400 mg PO DAILY@1700 05/20/19 10/24/19 Melatonin 10 mg PO HS@2100 05/20/19 10/24/19 Sertraline [Zoloft] 50 mg PO DAILY@0800 05/20/19 10/24/19 Sucralfate [Carafate] 1 gm PO ACHS PRN 05/20/19 10/24/19 Multivitamins, Thera [Multivitamin 1 tab PO DAILY@1700 09/23/19 10/24/19 (formulary)] Cyanocobalamin (Vitamin B-12) 1,000 mcg PO DAILY@1700 09/26/19 10/24/19 [Vitamin B-12] Aspirin 81 mg PO DAILY@1700 10/24/19 10/24/19 Epoetin Stevan [Procrit] 10,000 unit IM FR 10/24/19 10/24/19 Fludrocortisone Acetate 0.1 mg PO BID@0800,1700 10/24/19 10/24/19 Furosemide [Lasix] 40 mg PO BID@0600,1400 10/24/19 10/24/19 Gabapentin [Neurontin] 100 mg PO BID@0800,2100 10/24/19 10/24/19 INSULIN ASPART (NovoLOG) [NovoLOG 8 unit SQ BID@0700,1100 10/24/19 10/24/19 (formulary)] INSULIN ASPART (NovoLOG) [NovoLOG See Protocol SQ ACHS 10/24/19 10/24/19 (formulary)] Insulin Detemir (Levemir) [Levemir] 18 unit SQ HS@2100 10/24/19 10/24/19 Metolazone [Zaroxolyn] 2.5 mg PO DAILY@1400 10/24/19 10/24/19 Propranolol LA [Inderal LA] 60 mg PO DAILY@0800 10/24/19 10/24/19 Sennosides-Docusate Sodium 2 tab PO DAILY PRN 10/24/19 10/24/19 [Senokot-S] Sodium Bicarbonate Tab 650 mg PO BID@0800,1700 10/24/19 10/24/19 Spironolactone [Aldactone] 25 mg PO DAILY@0800 10/24/19 10/24/19 busPIRone HCl [Buspar] 10 mg PO BID@0800,1700 10/24/19 10/24/19 hydrALAZINE HCL [Apresoline] 25 mg PO BID@0800,1700 10/24/19 10/24/19 Previous Rx's Medication Instructions Recorded Diclofenac Sodium Gel [Voltaren 4 gm TOPICAL QID tube 09/29/19 Gel] INSULIN ASPART (NovoLOG) [NovoLOG 5 unit SQ AC-SUPPER vial 09/29/19 (formulary)] Hydrocortisone [Cortef] 10 mg PO 1800 tab 11/03/19 Hydrocortisone [Cortef] 20 mg PO DAILY tab 11/03/19 acetaZOLAMIDE [Diamox] 250 mg PO BID tab 11/03/19 Allergies Allergy/AdvReac Type Severity Reaction Status Date / Time doxycycline calcium Allergy Anaphylaxis Verified 11/08/19 15:14 [From Vibramycin] doxycycline hyclate Allergy Anaphylaxis Verified 11/08/19 15:14 [From Vibramycin] doxycycline monohydrate Allergy Anaphylaxis Verified 11/08/19 15:14 [From Vibramycin] erythromycin base Allergy Anaphylaxis Verified 11/08/19 15:14 Iodinated Contrast Media Allergy Anaphylaxis Verified 11/08/19 15:14 [Iodinated Contrast Media - IV Dye] Review of Systems ROS Statement: Those systems with pertinent positive or pertinent negative responses have been documented in the HPI. ROS Other: All systems not noted in ROS Statement are negative. Constitutional: Denies: fever Eyes: Denies: eye pain ENT: Denies: ear pain Respiratory: Denies: cough Cardiovascular: Denies: chest pain Endocrine: Denies: fatigue Gastrointestinal: Denies: abdominal pain Genitourinary: Denies: dysuria Musculoskeletal: Denies: back pain Skin: Denies: rash Neurological: Reports: as per HPI, weakness Past Medical History Past Medical History: Heart Failure, CVA/TIA, Diabetes Mellitus, Hypertension, Renal Disease Additional Past Medical History / Comment(s): TIAs 4 with previous TIA 18 maye hs ago. Motor seizures left leg anemic, irregular heart beat; murmur, pneum History of Any Multi-Drug Resistant Organisms: None Reported Past Surgical History: Appendectomy, Hysterectomy, Orthopedic Surgery Additional Past Surgical History / Comment(s): left knee arthroscopy, cyst removal (pilonidal cyst) Past Anesthesia/Blood Transfusion Reactions: No Reported Reaction Past Psychological History: Anxiety Smoking Status: Never smoker Past Alcohol Use History: None Reported Past Drug Use History: None Reported - Past Family History Brother(s) Additional Family Medical History / Comment(s): The patient has 2 brothers and both are . One from aspiration pneumonia with history of stomach cancer. A second brother from melanoma. Father Family Medical History: Congestive Heart Failure (CHF) Additional Family Medical History / Comment(s): Father at age 65 from heart failure. Mother Family Medical History: Congestive Heart Failure (CHF) Additional Family Medical History / Comment(s): Mother at age 92 from heart failure and had previous history of coronary artery disease with several MIs. Sister(s) Family Medical History: Cancer Additional Family Medical History / Comment(s): The patient has 2 sisters. One is stage IV breast cancer survivor and history of diverticulitis. Second sister has many medical problems. Son(s) Family Medical History: Hypertension General Exam Limitations: no limitations General appearance: alert, in no apparent distress Head exam: Present: normocephalic Eye exam: Present: normal appearance, PERRL, EOMI. Absent: nystagmus ENT exam: Present: normal oropharynx Neck exam: Present: normal inspection Respiratory exam: Present: normal lung sounds bilaterally Cardiovascular Exam: Present: regular rate, normal rhythm GI/Abdominal exam: Present: soft. Absent: tenderness Extremities exam: Present: normal inspection Neurological exam: Present: alert, oriented X3, CN II-XII intact Expanded Neurological exam: Present: protecting the airway Patient oriented to: Present: person, place, time Speech: Present: fluid speech Cranial nerves: EOM's Intact: Normal, Facial Sensation: Normal Sensory exam: Upper Extremity Light Touch: Normal, Lower Extremity Light Touch: Normal Motor strength exam: RUE: 5, LUE: 4, RLE: 4, LLE: 2/1 Eye Response: (4) open spontaneously Motor Response: (6) obeys commands Verbal Response: (5) oriented Psychiatric exam: Present: normal affect, normal mood Skin exam: Present: normal color Course Vital Signs 11/08/19 11/08/19 11/08/19 14:15 14:16 14:30 Temperature 98.7 F 98.7 F Pulse Rate 58 L 58 L 59 L Respiratory 18 14 18 Rate Blood Pressure 105/50 105/50 94/74 O2 Sat by Pulse 97 99 98 Oximetry 11/08/19 11/08/19 11/08/19 14:44 14:45 15:00 Temperature Pulse Rate 58 L 59 L 57 L Respiratory 18 18 18 Rate Blood Pressure 94/58 94/58 134/75 O2 Sat by Pulse 100 98 100 Oximetry EKG Findings - EKG Comments: EKG Findings:: Sinus bradycardia 55. NJ 126. QRS 140. QTc 502. QTC 480. Normal axis. Right bundle branch block. Prominent T waves. Medical Decision Making - Medical Decision Making Case discussed twice with Dr. Nunez. He agrees patient is not a TPA candidate. He recommends holding Eliquis, Plavix 300 mg and aspirin 325 mg. He states patient will need MRI. He does agree with transfer to [facility]. Neurology is not present here at this time. He states basilar artery did show some basilar artery threadiness. Patient and family are both updated. Case was discussed in detail with Dr. Mckinnon, who will accept transfer. - Lab Data Result diagrams: 11/08/19 14:54 11/08/19 14:54 Lab Results 11/08/19 11/08/19 11/08/19 Range/Units 14:21 14:54 14:54 WBC 7.3 (3.8-10.6) k/uL RBC 3.41 L (3.80-5.40) m/uL Hgb 10.6 L (11.4-16.0) gm/dL Hct 35.7 (34.0-46.0) % MCV 104.8 H (80.0-100.0) fL MCH 31.2 (25.0-35.0) pg MCHC 29.8 L (31.0-37.0) g/dL RDW 17.0 H (11.5-15.5) % Plt Count 115 L (150-450) k/uL Neutrophils % 82 % Lymphocytes % 9 % Monocytes % 6 % Eosinophils % 2 % Basophils % 0 % Neutrophils # 6.0 (1.3-7.7) k/uL Lymphocytes # 0.7 L (1.0-4.8) k/uL Monocytes # 0.4 (0-1.0) k/uL Eosinophils # 0.1 (0-0.7) k/uL Basophils # 0.0 (0-0.2) k/uL Hypochromasia Marked Anisocytosis Slight Macrocytosis Moderate PT (9.0-12.0) sec INR (<1.2) APTT (22.0-30.0) sec Sodium 145 (137-145) mmol/L Potassium 4.0 (3.5-5.1) mmol/L Chloride 103 (98-107) mmol/L Carbon Dioxide 36 H (22-30) mmol/L Anion Gap 6 mmol/L BUN 59 H (7-17) mg/dL Creatinine 1.54 H (0.52-1.04) mg/dL Est GFR (CKD-EPI)AfAm 37 (>60 ml/min/1.73 sqM) Est GFR (CKD-EPI)NonAf 32 (>60 ml/min/1.73 sqM) Glucose 176 H (74-99) mg/dL POC Glucose (mg/dL) 180 H (75-99) mg/dL POC Glu Chest Painting Leader ID Calcium 8.6 (8.4-10.2) mg/dL Total Bilirubin 0.7 (0.2-1.3) mg/dL AST 22 (14-36) U/L ALT 11 (4-34) U/L Alkaline Phosphatase 44 (38-126) U/L Total Creatine Kinase (30-135) U/L Total Protein 5.4 L (6.3-8.2) g/dL Albumin 3.3 L (3.5-5.0) g/dL 11/08/19 11/08/19 Range/Units 14:54 14:54 WBC (3.8-10.6) k/uL RBC (3.80-5.40) m/uL Hgb (11.4-16.0) gm/dL Hct (34.0-46.0) % MCV (80.0-100.0) fL MCH (25.0-35.0) pg MCHC (31.0-37.0) g/dL RDW (11.5-15.5) % Plt Count (150-450) k/uL Neutrophils % % Lymphocytes % % Monocytes % % Eosinophils % % Basophils % % Neutrophils # (1.3-7.7) k/uL Lymphocytes # (1.0-4.8) k/uL Monocytes # (0-1.0) k/uL Eosinophils # (0-0.7) k/uL Basophils # (0-0.2) k/uL Hypochromasia Anisocytosis Macrocytosis PT 11.1 (9.0-12.0) sec INR 1.0 (<1.2) APTT 24.3 (22.0-30.0) sec Sodium (137-145) mmol/L Potassium (3.5-5.1) mmol/L Chloride (98-107) mmol/L Carbon Dioxide (22-30) mmol/L Anion Gap mmol/L BUN (7-17) mg/dL Creatinine (0.52-1.04) mg/dL Est GFR (CKD-EPI)AfAm (>60 ml/min/1.73 sqM) Est GFR (CKD-EPI)NonAf (>60 ml/min/1.73 sqM) Glucose (74-99) mg/dL POC Glucose (mg/dL) (75-99) mg/dL POC Glu Chest Painting Leader ID Calcium (8.4-10.2) mg/dL Total Bilirubin (0.2-1.3) mg/dL AST (14-36) U/L ALT (4-34) U/L Alkaline Phosphatase (38-126) U/L Total Creatine Kinase 21 L (30-135) U/L Total Protein (6.3-8.2) g/dL Albumin (3.5-5.0) g/dL - Radiology Data Radiology results: report reviewed (Computed tomography scan of the brain shows atrophy and chronic small vessel ischemia. No acute intercranial abnormality. No change.) Disposition Clinical Impression: Cerebrovascular accident (CVA) Disposition: OTHER INSTITUTION NOT DEFINED Is patient prescribed a controlled substance at d/c from ED?: No Referrals: Eleazar Mills MD [Primary Care Provider] - 1-2 days Time of Disposition: 15:02 - Out of Hospital Transfer - Req. Specs Out of Hospital Transfer - Requested Specifics: Other Emergency Center
--- NOTE | 2019-11-08 14:42 | CT ---
EXAMINATION TYPE: CT brain wo con for TPA DATE OF EXAM: 11/08/2019 COMPARISON: 09/23/2019 HISTORY: Neuro deficits. CT DLP: 1102.8 mGycm Automated exposure control for dose reduction was used. CT brain without contrast. There is diffuse cerebral atrophy. There is no mass effect nor midline shift. There is no sign of int racranial hemorrhage. There are hypodense foci in the periventricular white matter. There is 5 mm lac unar infarct left caudate nucleus. Calvarium is intact. IMPRESSION: Cerebral atrophy and chronic small vessel ischemia. No acute intracranial abnormality. No change.
[2019-11-08 14:59] LABS: Anisocytosis Slight; Basophils % (A) 0 %; Eosinophils # (A) 0.1 k/uL (0-0.7); Eosinophils % (A) 2 %; HCT 35.7 % (34.0-46.0); HGB 10.6 gm/dL (11.4-16.0); Hypochromasia Marked; Lymphocytes # (A) 0.7 k/uL (1.0-4.8); Lymphocytes % (A) 9 %; MCH 31.2 pg (25.0-35.0); MCHC 29.8 g/dL (31.0-37.0); MCV 104.8 fL (80.0-100.0); Macrocytosis Moderate; Mean Platelet Volume 8.8; Monocytes # (A) 0.4 k/uL (0-1.0); Monocytes % (A) 6 %; Neutrophils % (A) 82 %; Platelet Count 115 k/uL (150-450); RBC 3.41 m/uL (3.80-5.40); WBC 7.3 k/uL (3.8-10.6)
[2019-11-08] MEDS ORDERED: CLOPIDOGREL 75 MG TAB PO STA (15:03)
[2019-11-08] MEDS ORDERED: ASPIRIN 81 MG PO STA (15:03)
[2019-11-08 15:06] LABS: Albumin 3.3 g/dL (3.5-5.0); Calcium 8.6 mg/dL (8.4-10.2); Total Bilirubin 0.7 mg/dL (0.2-1.3); Total Protein 5.4 g/dL (6.3-8.2)
[2019-11-08 15:16] LABS: Partial Thromboplastin Time 24.3 sec (22.0-30.0); Prothrombin Time 11.1 sec (9.0-12.0)
--- NOTE | 2019-11-08 15:16 | CT ---
EXAMINATION TYPE: CT angio head neck DATE OF EXAM: 11/08/2019 COMPARISON: None HISTORY: Neuro deficits. CT DLP: 394.3 mGycm Automated exposure control for dose reduction was used. CONTRAST: Performed with IV Contrast, patient injected with 65ml mL of Isovue 370. Multiple axial sections were obtained from the aortic arch to the vertex of the brain with intravenou s contrast. There are 3-D post processed images. There is normal branching pattern of the great vessels on the aortic arch. There is tortuosity of the great vessels. There is bilateral arterial flow in the subclavian arteries. There is arterial flow in the common internal and external carotid arteries bilaterally. There is art erial flow in both vertebral arteries. There is no evidence of carotid or vertebral artery aneurysm o r dissection. Left vertebral artery smaller than the right. The basilar artery appears to fill entire ly from the right side. There is mild plaque at the carotid artery bifurcations and lumen narrowing l ess than 10%. There is arterial flow in the anterior middle and posterior cerebral arteries. There is arterial flow in the vertebrobasilar artery system. There is diminutive basilar artery. The posterior cerebral art eries appear to fill mostly through the posterior communicating arteries. I see no evidence of intrac ranial arterial stenosis. There is no mass effect. There is no evidence of intracranial aneurysm or n eovascularity. There is normal contrast opacification of the venous sinuses. IMPRESSION: Mild atherosclerotic plaque formation. No evidence of hemodynamic stenosis. Tortuous great vessels.
[2019-11-08 15:30] LABS: Creatine Kinase MB 2.5 ng/mL (0.0-2.4)
[2019-11-08 15:33] LABS: Troponin I 0.176 ng/mL (0.000-0.034)
[2019-11-08 15:53] VITALS: PULSE 55; RESP 18
[2019-11-08 16:15] VITALS: BP 134/61; TEMP 97.5
== END 2019-11-08 16:34 | disposition other institution (70) ==
LOC: EC 14:13
DX: I63.9 Cerebral infarction, unspecified (principal); I11.0 Hypertensive heart disease with heart failure; I50.9 Heart failure, unspecified; E11.9 Type 2 diabetes mellitus without complications; F41.9 Anxiety disorder, unspecified; Z79.4 Long term (current) use of insulin; Z79.01 Long term (current) use of anticoagulants; Z79.890 Hormone replacement therapy; Z79.82 Long term (current) use of aspirin; Z79.899 Other long term (current) drug therapy; Z88.1 Allergy status to other antibiotic agents; Z91.041 Radiographic dye allergy status; Z86.73 Personal history of transient ischemic attack (TIA), and cerebral infarction without residual deficits
CPT/HCPCS: 36415; 93005; 80053; 82550; 82553; 84484; 85025; 85610; 85730; 70496; 70450; 70498; 99285; 96374; 96375 ×2; J1200; J2930; Q9967

== ENCOUNTER 2020-04-14 11:53 | Inpatient (IN) | payer MEDICARE, OTHER ==
[2020-04-14] MEDS ORDERED: ONDANSETRON 4 MG/2 ML VIAL IVP STA (12:21)
--- NOTE | 2020-04-14 12:38 | ED ---
General Adult HPI - General Chief complaint: Shortness of Breath Stated complaint: Vomiting,Stomach Pains Time Seen by Provider: 04/14/20 11:55 Source: patient, RN notes reviewed, old records reviewed Mode of arrival: ambulatory Limitations: no limitations - History of Present Illness Initial comments: This is a 79-year-old female who presents emergency department stating that she was having some nausea for the last week and she has vomited 4 times in the last week. Patient states she is nauseous today but has not vomited. Patient also states she has been having difficulty breathing over the last 4 days. Patient states she has history of congestive heart failure. Patient states she is oxygen dependent and had to move her oxygen 2 L to 4 L. Patient denies any recent fever chills or cough. Patient states she has a little abdominal discomfort in the epigastric region. Patient denies any dysuria hematuria urinary frequency. Patient denies any back pain. - Related Data Home Medications Medication Instructions Recorded Confirmed Pravastatin Sodium [Pravachol] 20 mg PO DAILY@1700 04/23/14 11/08/19 Acetaminophen Tab [Tylenol] 650 mg PO Q6H PRN 05/20/19 11/08/19 Albuterol Nebulized [Ventolin 2.5 mg INHALATION RT-Q4H PRN 05/20/19 11/08/19 Nebulized] Apixaban [Eliquis] 5 mg PO BID@0800,1700 05/20/19 11/08/19 Budesonide 1 mg INHALATION RT-BID PRN 05/20/19 11/08/19 Divalproex Sodium [Depakote 500 mg PO DAILY@0800 05/20/19 11/08/19 Sprinkle] Ferrous Sulfate [Iron (65 MG 325 mg PO BID@0800,1700 05/20/19 11/08/19 Elemental)] Levothyroxine Sodium 112 mcg PO DAILY@0600 05/20/19 11/08/19 Lisinopril [Prinivil] 5 mg PO DAILY@0800 05/20/19 11/08/19 Magnesium Oxide 400 mg PO DAILY@1700 05/20/19 11/08/19 Melatonin 10 mg PO HS@2100 05/20/19 11/08/19 Sertraline [Zoloft] 50 mg PO DAILY@0800 05/20/19 11/08/19 Sucralfate [Carafate] 1 gm PO ACHS PRN 05/20/19 11/08/19 Multivitamins, Thera [Multivitamin 1 tab PO DAILY@1700 09/23/19 11/08/19 (formulary)] Cyanocobalamin (Vitamin B-12) 1,000 mcg PO DAILY@1700 09/26/19 11/08/19 [Vitamin B-12] Aspirin 81 mg PO DAILY@1700 10/24/19 11/08/19 Epoetin Stevna [Procrit] 10,000 unit IM FR 10/24/19 11/08/19 Fludrocortisone Acetate 0.1 mg PO BID@0800,1700 10/24/19 11/08/19 Furosemide [Lasix] 40 mg PO BID@0600,1400 10/24/19 11/08/19 Gabapentin [Neurontin] 100 mg PO BID@0800,2100 10/24/19 11/08/19 INSULIN ASPART (NovoLOG) [NovoLOG 8 unit SQ BID@0700,1100 10/24/19 11/08/19 (formulary)] INSULIN ASPART (NovoLOG) [NovoLOG See Protocol SQ ACHS 10/24/19 11/08/19 (formulary)] Insulin Detemir (Levemir) [Levemir] 18 unit SQ HS@209910/24/19 11/08/19 Metolazone [Zaroxolyn] 2.5 mg PO DAILY@1400 10/24/19 11/08/19 Propranolol LA [Inderal LA] 60 mg PO DAILY@0800 10/24/19 11/08/19 Sennosides-Docusate Sodium 2 tab PO DAILY PRN 10/24/19 11/08/19 [Senokot-S] Sodium Bicarbonate Tab 650 mg PO BID@0800,1700 10/24/19 11/08/19 Spironolactone [Aldactone] 25 mg PO DAILY@0800 10/24/19 11/08/19 busPIRone HCl [Buspar] 10 mg PO BID@0800,1700 10/24/19 11/08/19 hydrALAZINE HCL [Apresoline] 25 mg PO BID@0800,1700 10/24/19 11/08/19 Bisacodyl [Dulcolax] 10 mg RECTAL DAILY PRN 11/08/19 11/08/19 Hydrocortisone [Cortef] 10 mg PO DAILY@1800 11/08/19 11/08/19 Hydrocortisone [Cortef] 20 mg PO DAILY@0800 11/08/19 11/08/19 INSULIN ASPART (NovoLOG) [NovoLOG 5 unit SQ AC-SUPPER@1630 11/08/19 11/08/19 (formulary)] Magnesium Hydroxide [Milk of 2,400 mg PO DAILY PRN 11/08/19 11/08/19 Magnesia] Na Phos,M-B/Na Phos,Di-Ba [Fleet 133 ml RECTAL DAILY PRN 11/08/19 11/08/19 Adult] Potassium Chloride ER [K-Dur 20] 20 meq PO BID@0800,1700 11/08/19 11/08/19 acetaZOLAMIDE [Diamox] 250 mg PO BID@0800,1700 11/08/19 11/08/19 Previous Rx's Medication Instructions Recorded Diclofenac Sodium Gel [Voltaren 4 gm TOPICAL QID tube 09/29/19 Gel] Allergies Allergy/AdvReac Type Severity Reaction Status Date / Time doxycycline calcium Allergy Anaphylaxis Verified 04/14/20 14:06 [From Vibramycin] doxycycline hyclate Allergy Anaphylaxis Verified 04/14/20 14:06 [From Vibramycin] doxycycline monohydrate Allergy Anaphylaxis Verified 04/14/20 14:06 [From Vibramycin] erythromycin base Allergy Anaphylaxis Verified 04/14/20 14:06 Iodinated Contrast Media Allergy Anaphylaxis Verified 04/14/20 14:06 [Iodinated Contrast Media - IV Dye] Review of Systems ROS Statement: Those systems with pertinent positive or pertinent negative responses have been documented in the HPI. ROS Other: All systems not noted in ROS Statement are negative. Past Medical History Past Medical History: Heart Failure, CVA/TIA, Diabetes Mellitus, Hypertension, Renal Disease Additional Past Medical History / Comment(s): TIAs 4 with previous TIA 18 months ago. Motor seizures left leg anemic, irregular heart beat; murmur, pneum History of Any Multi-Drug Resistant Organisms: None Reported Past Surgical History: Appendectomy, Hysterectomy, Orthopedic Surgery Additional Past Surgical History / Comment(s): left knee arthroscopy, cyst removal (pilonidal cyst) Past Anesthesia/Blood Transfusion Reactions: No Reported Reaction Past Psychological History: Anxiety Smoking Status: Never smoker Past Alcohol Use History: None Reported Past Drug Use History: None Reported - Past Family History Brother(s) Additional Family Medical History / Comment(s): The patient has 2 brothers and both are . One from aspiration pneumonia with history of stomach cancer. A second brother from melanoma. Father Family Medical History: Congestive Heart Failure (CHF) Additional Family Medical History / Comment(s): Father at age 65 from heart failure. Mother Family Medical History: Congestive Heart Failure (CHF) Additional Family Medical History / Comment(s): Mother at age 92 from heart failure and had previous history of coronary artery disease with several MIs. Sister(s) Family Medical History: Cancer Additional Family Medical History / Comment(s): The patient has 2 sisters. One is stage IV breast cancer survivor and history of diverticulitis. Second sister has many medical problems. Son(s) Family Medical History: Hypertension General Exam - General Exam Comments Initial Comments: GENERAL: Patient is well-developed and well-nourished. Patient is nontoxic and well- hydrated and is in mild distress. ENT: Neck is soft and supple. No significant lymphadenopathy is noted. Oropharynx is clear. Moist mucous membranes. Neck has full range of motion without eliciting any pain. EYES: The sclera were anicteric and conjunctiva were pink and moist. Extraocular movements were intact and pupils were equal round and reactive to light. Eyelids were unremarkable. PULMONARY: Unlabored respirations. Good breath sounds bilaterally. No audible rales rhonchi or wheezing was noted. CARDIOVASCULAR: There is a regular rate and rhythm without any murmurs gallops or rubs. ABDOMEN: Mild epigastric abdominal pain SKIN: Skin is clear with no lesions or rashes and otherwise unremarkable. NEUROLOGIC: Patient is alert and oriented x3. Cranial nerves II through XII are grossly intact. Motor and sensory are also intact. Normal speech, volume and content. Symmetrical smile. MUSCULOSKELETAL: Normal extremities with adequate strength and full range of motion. No lower extremity swelling or edema. No calf tenderness. LYMPHATICS: No significant lymphadenopathy is noted PSYCHIATRIC: Normal psychiatric evaluation. Limitations: no limitations Course Vital Signs 04/14/20 04/14/20 11:55 14:06 Temperature 97.9 F 98.0 F Pulse Rate 58 L 54 L Respiratory 20 18 Rate Blood Pressure 133/65 130/60 O2 Sat by Pulse 91 L 97 Oximetry Medical Decision Making - Medical Decision Making EKG shows sinus bradycardia 53 bpm HI interval is 144 QRS is 140 QT interval 470 QTC is 441. Patient's EKG shows a right bundle branch block. Patient's EKG shows some T-wave inversions in the precordial leads V1 through the 4. Some biphasic T waves in V5 and V6 however she is seen her previous EKG Chest x-ray shows no acute abnormality I spoke with Dr. Calzada wanted the patient admitted admitted the patient wrote admitting orders - Lab Data Result diagrams: 04/14/20 12:32 04/14/20 12:32 Lab Results 04/14/20 04/14/20 04/14/20 Range/Units 12:32 12:32 12:32 WBC 8.7 (3.8-10.6) k/uL RBC 3.80 (3.80-5.40) m/uL Hgb 11.8 (11.4-16.0) gm/dL Hct 37.4 (34.0-46.0) % MCV 98.6 (80.0-100.0) fL MCH 31.1 (25.0-35.0) pg MCHC 31.5 (31.0-37.0) g/dL RDW 16.2 H (11.5-15.5) % Plt Count 275 (150-450) k/uL Neutrophils % 81 % Lymphocytes % 11 % Monocytes % 5 % Eosinophils % 2 % Basophils % 1 % Neutrophils # 7.0 (1.3-7.7) k/uL Lymphocytes # 0.9 L (1.0-4.8) k/uL Monocytes # 0.5 (0-1.0) k/uL Eosinophils # 0.2 (0-0.7) k/uL Basophils # 0.1 (0-0.2) k/uL Hypochromasia Slight Anisocytosis Slight Macrocytosis Slight PT 10.6 (9.0-12.0) sec INR 1.0 (<1.2) APTT 24.3 (22.0-30.0) sec Sodium 141 (137-145) mmol/L Potassium 4.3 (3.5-5.1) mmol/L Chloride 99 (98-107) mmol/L Carbon Dioxide 28 (22-30) mmol/L Anion Gap 14 mmol/L BUN 38 H (7-17) mg/dL Creatinine 1.20 H (0.52-1.04) mg/dL Est GFR (CKD-EPI)AfAm 50 (>60 ml/min/1.73 sqM) Est GFR (CKD-EPI)NonAf 44 (>60 ml/min/1.73 sqM) Glucose 210 H (74-99) mg/dL Plasma Lactic Acid Cam (0.7-2.0) mmol/L Calcium 10.4 H (8.4-10.2) mg/dL Magnesium 1.9 (1.6-2.3) mg/dL Total Bilirubin 0.9 (0.2-1.3) mg/dL AST 21 (14-36) U/L ALT 11 (4-34) U/L Alkaline Phosphatase 54 (38-126) U/L Troponin I (0.000-0.034) ng/mL NT-Pro-B Natriuret Pep pg/mL Total Protein 7.1 (6.3-8.2) g/dL Albumin 4.4 (3.5-5.0) g/dL Lipase (23-300) U/L 04/14/20 04/14/20 04/14/20 Range/Units 12:32 12:32 12:32 WBC (3.8-10.6) k/uL RBC (3.80-5.40) m/uL Hgb (11.4-16.0) gm/dL Hct (34.0-46.0) % MCV (80.0-100.0) fL MCH (25.0-35.0) pg MCHC (31.0-37.0) g/dL RDW (11.5-15.5) % Plt Count (150-450) k/uL Neutrophils % % Lymphocytes % % Monocytes % % Eosinophils % % Basophils % % Neutrophils # (1.3-7.7) k/uL Lymphocytes # (1.0-4.8) k/uL Monocytes # (0-1.0) k/uL Eosinophils # (0-0.7) k/uL Basophils # (0-0.2) k/uL Hypochromasia Anisocytosis Macrocytosis PT (9.0-12.0) sec INR (<1.2) APTT (22.0-30.0) sec Sodium (137-145) mmol/L Potassium (3.5-5.1) mmol/L Chloride (98-107) mmol/L Carbon Dioxide (22-30) mmol/L Anion Gap mmol/L BUN (7-17) mg/dL Creatinine (0.52-1.04) mg/dL Est GFR (CKD-EPI)AfAm (>60 ml/min/1.73 sqM) Est GFR (CKD-EPI)NonAf (>60 ml/min/1.73 sqM) Glucose (74-99) mg/dL Plasma Lactic Acid Acm 2.9 H* (0.7-2.0) mmol/L Calcium (8.4-10.2) mg/dL Magnesium (1.6-2.3) mg/dL Total Bilirubin (0.2-1.3) mg/dL AST (14-36) U/L ALT (4-34) U/L Alkaline Phosphatase (38-126) U/L Troponin I <0.012 (0.000-0.034) ng/mL NT-Pro-B Natriuret Pep 64544 pg/mL Total Protein (6.3-8.2) g/dL Albumin (3.5-5.0) g/dL Lipase (23-300) U/L 04/14/20 Range/Units 12:32 WBC (3.8-10.6) k/uL RBC (3.80-5.40) m/uL Hgb (11.4-16.0) gm/dL Hct (34.0-46.0) % MCV (80.0-100.0) fL MCH (25.0-35.0) pg MCHC (31.0-37.0) g/dL RDW (11.5-15.5) % Plt Count (150-450) k/uL Neutrophils % % Lymphocytes % % Monocytes % % Eosinophils % % Basophils % % Neutrophils # (1.3-7.7) k/uL Lymphocytes # (1.0-4.8) k/uL Monocytes # (0-1.0) k/uL Eosinophils # (0-0.7) k/uL Basophils # (0-0.2) k/uL Hypochromasia Anisocytosis Macrocytosis PT (9.0-12.0) sec INR (<1.2) APTT (22.0-30.0) sec Sodium (137-145) mmol/L Potassium (3.5-5.1) mmol/L Chloride (98-107) mmol/L Carbon Dioxide (22-30) mmol/L Anion Gap mmol/L BUN (7-17) mg/dL Creatinine (0.52-1.04) mg/dL Est GFR (CKD-EPI)AfAm (>60 ml/min/1.73 sqM) Est GFR (CKD-EPI)NonAf (>60 ml/min/1.73 sqM) Glucose (74-99) mg/dL Plasma Lactic Acid Cam (0.7-2.0) mmol/L Calcium (8.4-10.2) mg/dL Magnesium (1.6-2.3) mg/dL Total Bilirubin (0.2-1.3) mg/dL AST (14-36) U/L ALT (4-34) U/L Alkaline Phosphatase (38-126) U/L Troponin I (0.000-0.034) ng/mL NT-Pro-B Natriuret Pep pg/mL Total Protein (6.3-8.2) g/dL Albumin (3.5-5.0) g/dL Lipase 135 (23-300) U/L Disposition Clinical Impression: Gastritis, Dyspnea, Congestive heart failure Disposition: ADMITTED IP TO THIS HOSP Referrals: Eleazar Mills MD [Primary Care Provider] - 1-2 days Time of Disposition: 13:59
[2020-04-14 12:43] LABS: Anisocytosis Slight; Basophils # (A) 0.1 k/uL (0-0.2); Basophils % (A) 1 %; Eosinophils # (A) 0.2 k/uL (0-0.7); Eosinophils % (A) 2 %; HCT 37.4 % (34.0-46.0); HGB 11.8 gm/dL (11.4-16.0); Hypochromasia Slight; Lymphocytes # (A) 0.9 k/uL (1.0-4.8); Lymphocytes % (A) 11 %; MCH 31.1 pg (25.0-35.0); MCHC 31.5 g/dL (31.0-37.0); MCV 98.6 fL (80.0-100.0); Macrocytosis Slight; Mean Platelet Volume 7.5; Monocytes # (A) 0.5 k/uL (0-1.0); Monocytes % (A) 5 %; Neutrophils % (A) 81 %; Platelet Count 275 k/uL (150-450); RDW 16.2 % (11.5-15.5); WBC 8.7 k/uL (3.8-10.6)
[2020-04-14 12:51] LABS: Albumin 4.4 g/dL (3.5-5.0); Calcium 10.4 mg/dL (8.4-10.2); Magnesium 1.9 mg/dL (1.6-2.3); Potassium 4.3 mmol/L (3.5-5.1); Total Bilirubin 0.9 mg/dL (0.2-1.3); Total Protein 7.1 g/dL (6.3-8.2)
[2020-04-14 12:54] LABS: Partial Thromboplastin Time 24.3 sec (22.0-30.0); Prothrombin Time 10.6 sec (9.0-12.0)
--- NOTE | 2020-04-14 12:57 | XR ---
EXAMINATION TYPE: XR chest 2V DATE OF EXAM: 04/14/2020 HISTORY: difficulty breathing. REFERENCE: Previous study dated 11/02/2019. FINDINGS: The lungs are overinflated. The heart is enlarged. There are bilateral pleural effusions pr esent. There is pleural parenchymal change present at the right lung base which is improved slightly from previous. I do not see definite superimposed pneumonia or edema. IMPRESSION: 1. COPD. 2. CARDIOMEGALY. 3. CHRONIC PLEURAL PARENCHYMAL CHANGES. I COULD NOT EXCLUDE SMALL, BILATERAL EFFUSIONS.
[2020-04-14] MEDS ORDERED: SODIUM CHLORIDE 0.9% 1,000 ML IV ONE (13:59)
[2020-04-14 15:38] LABS: Appearance,Urine Clear (Clear); Bilirubin,Urine Negative (Negative); Blood,Urine Negative (Negative); Color,Urine Light Yellow; Glucose,Urine (UA) Negative (Negative); Ketones,Urine Negative (Negative); Leukocyte Esterase,Urine Negative (Negative); Nitrite,Urine Negative (Negative); Protein,Urine Trace (Negative); Specific Gravity,Urine 1.008 (1.001-1.035); Urobilinogen,Urine <2.0 mg/dL (<2.0)
[2020-04-14] MEDS ORDERED: SENNOSIDES 8.6 MG TAB PO PRN (16:15)
[2020-04-14] MEDS ORDERED: ALBUTEROL HFA INHALER INHALATION PRN (16:15)
[2020-04-14] MEDS ORDERED: ACETAMINOPHEN TAB 325 MG TAB PO PRN (16:15)
[2020-04-14 16:54] LABS: Glucose,Whole Blood 144 mg/dL (75-99)
[2020-04-14] MEDS: INSULIN ASPART (NovoLOG) 100 UNIT/ML VIAL SQ SCH (17:16)
[2020-04-14] MEDS: CARVEDILOL 3.125 MG TAB PO SCH (17:16)
[2020-04-14 20:47] LABS: Glucose,Whole Blood 226 mg/dL (75-99)
[2020-04-14] MEDS: INSULIN DETEMIR (LEVEMIR) 100 UNIT/ML SYR SQ SCH (20:56)
[2020-04-14] MEDS: METOPROLOL TARTRATE 25 MG TAB PO SCH (20:56)
[2020-04-14] MEDS: SODIUM BICARBONATE TAB 650 MG TAB PO SCH (20:56)
[2020-04-14] MEDS: MELATONIN 5 MG TABLET PO SCH (20:56)
[2020-04-14] MEDS: busPIRone HCl 10 MG TAB PO SCH (20:56)
[2020-04-14] MEDS: FERROUS SULFATE 325 MG TAB PO SCH (20:56)
[2020-04-14] MEDS: APIXABAN 2.5 MG TABLET PO SCH (20:56)
[2020-04-14] MEDS: FLUDROCORTISONE 0.1 MG TAB PO SCH (20:57)
[2020-04-14] MEDS: DIVALPROEX 250 MG TABLET.DR PO SCH (20:57)
[2020-04-14] MEDS: PANTOPRAZOLE 40 MG/10 ML VIAL IVP SCH (20:57)
[2020-04-15] MEDS: INSULIN ASPART (NovoLOG) 100 UNIT/ML VIAL SQ SCH ×6 (05:50→21:15)
[2020-04-15] MEDS: CARVEDILOL 3.125 MG TAB PO SCH (05:53)
[2020-04-15] MEDS: LEVOTHYROXINE 112 MCG TAB PO SCH (05:53)
[2020-04-15 06:04] LABS: Glucose,Whole Blood 139 mg/dL (75-99)
[2020-04-15] MEDS: MULTIVITAMINS, THERA 1 EACH TAB PO SCH (07:50)
[2020-04-15] MEDS: SODIUM BICARBONATE TAB 650 MG TAB PO SCH ×2 (07:50→21:14)
[2020-04-15] MEDS: PANTOPRAZOLE 40 MG/10 ML VIAL IVP SCH (07:51)
[2020-04-15] MEDS: MAGNESIUM OXIDE 400 MG TAB PO SCH (07:51)
[2020-04-15] MEDS: APIXABAN 2.5 MG TABLET PO SCH ×2 (07:51→21:15)
[2020-04-15] MEDS: busPIRone HCl 10 MG TAB PO SCH ×2 (07:51→21:15)
[2020-04-15] MEDS: FLUDROCORTISONE 0.1 MG TAB PO SCH ×2 (07:51→07:59)
[2020-04-15] MEDS: SPIRONOLACTONE 25 MG TAB PO SCH (07:51)
[2020-04-15] MEDS: CLOPIDOGREL 75 MG TAB PO SCH (07:52)
[2020-04-15] MEDS: PRAVASTATIN SODIUM 20 MG TAB PO SCH (07:52)
[2020-04-15] MEDS: SERTRALINE 50 MG TAB PO SCH (07:52)
[2020-04-15] MEDS: PSYLLIUM HUSK 100% 6 GM PACKET PO SCH (07:52)
[2020-04-15] MEDS: FERROUS SULFATE 325 MG TAB PO SCH ×2 (07:52→21:15)
[2020-04-15] MEDS: METOPROLOL TARTRATE 25 MG TAB PO SCH ×2 (07:52→21:15)
[2020-04-15] MEDS: DIVALPROEX 250 MG TABLET.DR PO SCH ×2 (07:52→21:15)
[2020-04-15] MEDS: CYANOCOBALAMIN 500 MCG TAB PO SCH (07:52)
[2020-04-15] MEDS: FUROSEMIDE 40 MG TAB PO SCH (07:52)
[2020-04-15] MEDS: BUDESONIDE 1 MG/2 ML NEBU INHALATION PRN (07:58)
[2020-04-15] MEDS: ALBUTEROL NEBULIZED 1.25 MG/3 ML INHALATION PRN ×2 (07:58→11:42)
--- NOTE | 2020-04-15 08:27 | P.HPIM ---
History of Present Illness H&P Date: 04/14/20 Chief Complaint: Severe dyspnea and shortness of breath, CHF with mild exace rbation, COPD, s 79-year-old female one of my office patient for the last 20 years with multiple medical problem known to have history of atherosclerotic heart disease, A. fib, history of CVA, history of CHF and COPD who had few weeks ago and infectious pericarditis was treated with IV antibiotic for over 6 weeks was seen by an one of the cardiothoracic surgeon at [facility] and was sent to [facility] rehab for the time she was on IV antibiotics. Patient had recover and done well was discharged home successfully still require home O2. Patient was hospitalized again for mild dyspnea and shortness of breath with A. fib with RVR treated and done well remain on anticoagulation with eloquent was on Eliquis for A. fib, Plavix for CVA blood sugar has been under control lately. Apparently patient developed to have severe gastritis with mild epigastric pain nausea vomiting since Thursday last week symptom becomes slightly bit worse through the week the patient has not been able to tolerate any food or fluid. Her caregiver had called early this morning complaining about was going on with Tammi was instructed to bring her to [facility] where was seen. Patient is slightly dehydrated has a significant elevated BNP, had elevated lactic acid with sign and symptoms consistent with CHF with mild COPD and severe gastritis with no sign of bleed her hemoglobin has been stable since last visit. Patient was started on IV pantoprazole, IV diuretics along with updraft treatment and O2 and admitted to the hospital for the above problem. Review of Systems CONSTITUTIONAL: Well-developed no acute respiratory distress. EYES: No icterus sclerae, no conjunctivitis. EARS, NOSE, MOUTH, THROAT, and FACE: No sore throat, lymphadenopathy, carotid bruits or deformity. RESPIRATORY: Positive shortness of breath cough and wheezes.. CARDIOVASCULAR: Positive PND orthopnea palpitation with mild edema significant shortness of breath with minimum exertion. GASTROINTESTINAL: Positive nausea and vomiting with mild abdominal pain with change in bowel habit with no black stool or tarry stool no active bleed. GENITOURINARY: Negative for Hematuria or UTI, no kidney stones. INTEGUMENT/BREAST: Negative for any muscular injury with mild osteoarthritis.. HEMATOLOGIC/LYMPHATIC: Negative for bleed or purpura. MUSCULOSKELTAL: Negative for Myalgia or arthralgia. NEURLOGICAL: No LOC, Sz or syncope, blurred vision dizziness or abnormality.. Significant bilateral neuropathy with abnormal balance and gait. BEHAVIORAL/PSYCH: Negative. ENDOCRINE: Negative. Past Medical History Past Medical History: Heart Failure, CVA/TIA, Diabetes Mellitus, Hypertension, Renal Disease Additional Past Medical History / Comment(s): TIAs 4 with previous TIA 18 months ago. Motor seizures left leg anemic, irregular heart beat; murmur, pneum History of Any Multi-Drug Resistant Organisms: None Reported Past Surgical History: Appendectomy, Hysterectomy, Orthopedic Surgery Additional Past Surgical History / Comment(s): left knee arthroscopy, cyst removal (pilonidal cyst) Past Anesthesia/Blood Transfusion Reactions: No Reported Reaction Smoking Status: Never smoker - Past Family History Brother(s) Additional Family Medical History / Comment(s): The patient has 2 brothers and both are . One from aspiration pneumonia with history of stomach cancer. A second brother from melanoma. Father Family Medical History: Congestive Heart Failure (CHF) Additional Family Medical History / Comment(s): Father at age 65 from heart failure. Mother Family Medical History: Congestive Heart Failure (CHF) Additional Family Medical History / Comment(s): Mother at age 92 from heart failure and had previous history of coronary artery disease with several MIs. Sister(s) Family Medical History: Cancer Additional Family Medical History / Comment(s): The patient has 2 sisters. One is stage IV breast cancer survivor and history of diverticulitis. Second sister has many medical problems. Son(s) Family Medical History: Hypertension Medications and Allergies Home Medications Medication Instructions Recorded Confirmed Type Pravastatin Sodium [Pravachol] 20 mg PO DAILY 04/23/14 04/14/20 History Acetaminophen Tab [Tylenol] 650 mg PO Q6H PRN 05/20/19 04/14/20 History Budesonide 1 mg INHALATION RT-BID PRN 05/20/19 04/14/20 History Ferrous Sulfate [Iron (65 MG 325 mg PO BID 05/20/19 04/14/20 History Elemental)] Levothyroxine Sodium 112 mcg PO DAILY 05/20/19 04/14/20 History Lisinopril [Prinivil] 5 mg PO DAILY 05/20/19 04/14/20 History Magnesium Oxide 400 mg PO DAILY 05/20/19 04/14/20 History Melatonin 10 mg PO HS 05/20/19 04/14/20 History Sertraline [Zoloft] 50 mg PO DAILY 05/20/19 04/14/20 History Multivitamins, Thera [Multivitamin 1 tab PO DAILY 09/23/19 04/14/20 History (formulary)] Cyanocobalamin (Vitamin B-12) 1,000 mcg PO DAILY 09/26/19 04/14/20 History [Vitamin B-12] Fludrocortisone Acetate 0.1 mg PO BID 10/24/19 04/14/20 History Furosemide [Lasix] 40 mg PO DAILY 10/24/19 04/14/20 History Sodium Bicarbonate Tab 650 mg PO BID 10/24/19 04/14/20 History Spironolactone [Aldactone] 25 mg PO DAILY 10/24/19 04/14/20 History busPIRone HCl [Buspar] 10 mg PO BID 10/24/19 04/14/20 History Albuterol Nebulized [Ventolin 1.25 mg INHALATION RT-Q4H PRN 04/14/20 04/14/20 History Nebulized] Albuterol Sulfate [Proair Hfa] 2 puff INHALATION RT-Q4H PRN 04/14/20 04/14/20 History Apixaban [Eliquis] 2.5 mg PO BID 04/14/20 04/14/20 History Carvedilol [Coreg] 3.125 mg PO BID 04/14/20 04/14/20 History Clopidogrel [Plavix] 75 mg PO DAILY 04/14/20 04/14/20 History Divalproex Sodium 250 mg PO BID 04/14/20 04/14/20 History INSULIN LISPRO (HumaLOG) [humaLOG] See Protocol SQ AC-TID 04/14/20 04/14/20 His tory Insulin Glargine [Lantus] See Protocol SQ HS 04/14/20 04/14/20 History Metoprolol Tartrate [Lopressor] 25 mg PO BID 04/14/20 04/14/20 History Pantoprazole [Protonix] 40 mg PO DAILY 04/14/20 04/14/20 History Psyllium Husk [Metamucil] 0.4 gm PO DAILY 04/14/20 04/14/20 History Sennosides [Senna] 17.2 mg PO DAILY PRN 04/14/20 04/14/20 History Allergies Allergy/AdvReac Type Severity Reaction Status Date / Time doxycycline calcium Allergy Anaphylaxis Verified 04/14/20 14:06 [From Vibramycin] doxycycline hyclate Allergy Anaphylaxis Verified 04/14/20 14:06 [From Vibramycin] doxycycline monohydrate Allergy Anaphylaxis Verified 04/14/20 14:06 [From Vibramycin] erythromycin base Allergy Anaphylaxis Verified 04/14/20 14:06 Iodinated Contrast Media Allergy Anaphylaxis Verified 04/14/20 14:06 [Iodinated Contrast Media - IV Dye] Physical Exam Vitals: Vital Signs Temp Pulse Pulse Resp BP BP Pulse Ox 04/14/20 15:20 98.4 F 59 L 18 176/94 98 04/14/20 14:06 98.0 F 54 L 18 130/60 97 04/14/20 11:55 97.9 F 58 L 20 133/65 91 L Intake and Output 04/14/20 04/14/20 04/14/20 06:59 14:59 22:59 Other: Weight 48.988 kg General Appearance: Alert, cooperative, no distress, appears stated age. Neck HEENT: Supple, no lymphadenopathy, no thyroid enlargement, no carotid bruits. Lungs: Decreased breath sound bilaterally with fine rhonchi pulse mild expiratory wheezes. Chest Wall: Decrease expansion with deep inspiration no tenderness and no deformity was found on exam, no costochondral pain or discomfort. Heart: Irregular rate and rhythm, S1, S2 positive history positive 2/6 ejection systolic murmur in the apex with JVD. Back: Symmetric, no curvature, ROM normal, no CVA tenderness. Abdomen: Soft significant discomfort in the epigastric area no rebound or rigidity slight tenderness in the mid abdominal region area as well. Extremities: Extremities normal, atraumatic, no cyanosis or edema. Pulses: 2+ and symmetric. Skin: Skin color, texture, tugor normal, no rashes or lesions. Neurologic: Alert oriented x3 cranial nerves II through XII intact, positive generalized weakness possibly abnormal gait imbalance patient still have trouble ambulating without help. Results CBC & Chem 7: 04/14/20 12:32 04/14/20 12:32 Labs: Abnormal Lab Results - Last 24 Hours (Table) 04/14/20 04/14/20 04/14/20 Range/Units 12:32 12:32 12:32 RDW 16.2 H (11.5-15.5) % Lymphocytes # 0.9 L (1.0-4.8) k/uL BUN 38 H (7-17) mg/dL Creatinine 1.20 H (0.52-1.04) mg/dL Glucose 210 H (74-99) mg/dL Plasma Lactic Acid Cam 2.9 H* (0.7-2.0) mmol/L Calcium 10.4 H (8.4-10.2) mg/dL Urine Protein (Negative) 04/14/20 Range/Units 15:18 RDW (11.5-15.5) % Lymphocytes # (1.0-4.8) k/uL BUN (7-17) mg/dL Creatinine (0.52-1.04) mg/dL Glucose (74-99) mg/dL Plasma Lactic Acid Cam (0.7-2.0) mmol/L Calcium (8.4-10.2) mg/dL Urine Protein Trace H (Negative) Thrombosis Risk Factor Assmnt - DVT/VTE Prophylaxis DVT/VTE Prophylaxis: Pharmacologic Prophylaxis ordered, Mechanical Prophylaxis ordered Assessment and Plan Assessment: 1 severe dyspnea and shortness of breath secondary to COPD and CHF with treat patient CHF and fluid overload continue management for hypoxia. 2 CHF: Mostly diastolic acute on chronic was start patient on IV diuretics watch daily weight watch for any worsening symptoms and with the slight change it's probably worth the effort to run another echocardiogram to compare to the last 1 since her endocarditis see any major abnormality or change with her valvular heart disease. 3 COPD with mild exacerbation as well: Patient will continue on O2 continue DuoNeb and Pulmicort no steroid at this point. 4 atrophy fibrillation with pulse rates under control and medication currently continue anticoagulation continue beta ty with metoprolol 25 mg twice a day. 5 multiple CVA and TIA: Patient remain on Plavix continue to control her blood pressure continue secondary prevention with statin as well. 6 diabetes type 2: Continue patient on Lantus and NovoLog with Accu-Chek with sliding scales coverage and adjust dose as needed. 7 hypertension: Remain well controlled on current medication with metoprolol spironolactone and lisinopril. 8 chronic kidney disease: Stage III creatinine slightly but better at this point patient is seen nephrology regular basis. 9 chronic depression: Patient remain on Zoloft and BuSpar. 10 seizure with no seizure activity lately symptom has been under control patient seen neurology continue with Depakote CAD she is off Keppra. 11 hyperlipidemia: Remain on pravastatin 20 mg daily. 12 hypothyroidism: Continue patient on levothyroxine 112 g daily. 13 GI bleed and severe gastritis: Has been on pantoprazole continue medication watch for any bleed. 14 adrenal insufficiency: Patient has been on fludrocortisone and blood pressure has been doing much better she is off hydrocortisone currently. DVT prophylaxis: On anticoagulation. GI prophylaxis: On pantoprazole. Admit patient to the inpatient service for more than 2 nights.
[2020-04-15] MEDS ORDERED: LISINOPRIL 5 MG TAB PO SCH (09:00)
[2020-04-15] MEDS ORDERED: PANTOPRAZOLE 40 MG TABLET PO SCH (09:00)
[2020-04-15] MEDS ORDERED: ONDANSETRON 4 MG/2 ML VIAL IVP PRN (09:23)
--- NOTE | 2020-04-15 09:39 | P.PN ---
Subjective Progress Note Date: 04/15/20 79-year-old female one of my office patient for the last 20 years with multiple medical problem known to have history of atherosclerotic heart disease, A. fib, history of CVA, history of CHF and COPD who had few weeks ago and infectious pericarditis was treated with IV antibiotic for over 6 weeks was seen by an one of the cardiothoracic surgeon at [facility] and was sent to [facility] rehab for the time she was on IV antibiotics. Patient had recover and done well was discharged home successfully still require home O2. Patient was hospitalized again for mild dyspnea and shortness of breath with A. fib with RVR treated and done well remain on anticoagulation with eloquent was on Eliquis for A. fib, Plavix for CVA blood sugar has been under control lately. Apparently patient developed to have severe gastritis with mild epigastric pain nausea vomiting since Thursday last week symptom becomes slightly bit worse through the week the patient has not been able to tolerate any food or fluid. Her caregiver had called early this morning complaining about was going on with Tammi was instructed to bring her to [facility] where was seen. Patient is slightly dehydrated has a significant elevated BNP, had elevated lactic acid with sign and symptoms consistent with CHF with mild COPD and severe gastritis with no sign of bleed her hemoglobin has been stable since last visit. Patient was started on IV pantoprazole, IV diuretics along with updraft treatment and O2 and admitted to the hospital for the above problem. 04/15: Cardiology and pulmonary medicine on consult. Echocardiogram will be ordered. Patient states that she is scheduled for which she believes to be a KEV with Dr. Rae on April 24 and would like to have this done while hospitalized if possible. Will reach out to Dr. Rae regarding this. Patient has been afebrile, heart rate 60, blood pressure 150/79, pulse ox 99% on 3 L nasal cannula. 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 Nausea and vomiting are currently controlled. Objective - Vital Signs Vital signs: Vital Signs Temp 97.7 F 04/15/20 07:48 Pulse 60 04/15/20 08:34 Resp 18 04/15/20 07:48 BP 150/79 04/15/20 07:48 Pulse Ox 99 04/15/20 07:48 Intake & Output 04/14/20 04/15/20 04/15/20 18:59 06:59 18:59 Intake Total 686 240 Output Total 300 Balance 386 240 Weight 48.988 kg 54.1 kg Intake: Oral 686 240 Output: Urine 300 Other: Voiding Method Bedpan # Voids 1 - Exam Review of Systems CONSTITUTIONAL: Well-developed no acute respiratory distress. Denies fever, denies chills. EYES: No icterus sclerae, no conjunctivitis. EARS, NOSE, MOUTH, THROAT, and FACE: No sore throat, lymphadenopathy, carotid bruits or deformity. RESPIRATORY: Positive shortness of breath cough and wheezes.. CARDIOVASCULAR: Positive PND orthopnea palpitation with mild edema significant shortness of breath with minimum exertion. GASTROINTESTINAL: Positive nausea and vomiting with mild abdominal pain with change in bowel habit with no black stool or tarry stool no active bleed. GENITOURINARY: Negative for Hematuria or UTI, no kidney stones. INTEGUMENT/BREAST: Negative for any muscular injury with mild osteoarthritis.. HEMATOLOGIC/LYMPHATIC: Negative for bleed or purpura. MUSCULOSKELTAL: Negative for Myalgia or arthralgia. NEURLOGICAL: No LOC, Sz or syncope, blurred vision dizziness or abnormality.. Significant bilateral neuropathy with abnormal balance and gait. BEHAVIORAL/PSYCH: Negative. ENDOCRINE: Negative. Physical Examination General Appearance: Alert, cooperative, no distress, appears stated age. Neck HEENT: Supple, no lymphadenopathy, no thyroid enlargement, no carotid bruits. Lungs: Decreased breath sound bilaterally with fine rhonchi pulse mild expiratory wheezes. Chest Wall: Decrease expansion with deep inspiration no tenderness and no deformity was found on exam, no costochondral pain or discomfort. Heart: Irregular rate and rhythm, S1, S2 positive history positive 2/6 ejection systolic murmur in the apex with JVD. Back: Symmetric, no curvature, ROM normal, no CVA tenderness. Abdomen: Soft, mild tenderness epigastric area no rebound or rigidity slight tenderness in the mid abdominal region area as well. Extremities: Extremities normal, atraumatic, no cyanosis or edema. Pulses: 2+ and symmetric. Skin: Skin color, texture, tugor normal, no rashes or lesions. Neurologic: Alert oriented x3 cranial nerves II through XII intact, positive generalized weakness possibly abnormal gait imbalance patient still have trouble ambulating without help. - Labs CBC & Chem 7: 04/14/20 12:32 04/14/20 12:32 Labs: Abnormal Lab Results - Last 24 Hours (Table) 04/14/20 04/14/20 04/14/20 Range/Units 12:32 12:32 12:32 RDW 16.2 H (11.5-15.5) % Lymphocytes # 0.9 L (1.0-4.8) k/uL BUN 38 H (7-17) mg/dL Creatinine 1.20 H (0.52-1.04) mg/dL Glucose 210 H (74-99) mg/dL POC Glucose (mg/dL) (75-99) mg/dL Plasma Lactic Acid Cam 2.9 H* (0.7-2.0) mmol/L Calcium 10.4 H (8.4-10.2) mg/dL Urine Protein (Negative) 04/14/20 04/14/20 04/14/20 Range/Units 15:18 16:51 20:45 RDW (11.5-15.5) % Lymphocytes # (1.0-4.8) k/uL BUN (7-17) mg/dL Creatinine (0.52-1.04) mg/dL Glucose (74-99) mg/dL POC Glucose (mg/dL) 144 H 226 H (75-99) mg/dL Plasma Lactic Acid Cam (0.7-2.0) mmol/L Calcium (8.4-10.2) mg/dL Urine Protein Trace H (Negative) 04/15/20 Range/Units 06:02 RDW (11.5-15.5) % Lymphocytes # (1.0-4.8) k/uL BUN (7-17) mg/dL Creatinine (0.52-1.04) mg/dL Glucose (74-99) mg/dL POC Glucose (mg/dL) 139 H (75-99) mg/dL Plasma Lactic Acid Cam (0.7-2.0) mmol/L Calcium (8.4-10.2) mg/dL Urine Protein (Negative) Assessment and Plan Plan: 1 severe dyspnea and shortness of breath secondary to COPD and CHF. Continue Lasix 40 mg oral daily, lisinopril 5 mg daily, Lopressor 25 mg twice daily. Mon itor I&O and daily weights. Coreg will be discontinued. 2 CHF: Mostly diastolic acute on chronic was start patient on IV diuretics watch daily weight watch for any worsening symptoms and with the slight change it's probably worth the effort to run another echocardiogram to compare to the last 1 since her endocarditis see any major abnormality or change with her valvular heart disease. Echocardiogram and possible KEV on this admission. 3 COPD with mild exacerbation as well: Patient will continue on O2 continue DuoNeb and Pulmicort no steroid at this point. 4 atrial fibrillation paroxysmal. Continue eliquis 5 mg twice daily and metoprolol 25 mg twice a day. Discontinue Coreg 5 multiple CVA and TIA: Patient remain on Plavix continue to control her blood pressure continue secondary prevention with statin as well. 6 diabetes type 2: Continue patient on Lantus and NovoLog with Accu-Chek with sliding scales coverage and adjust dose as needed. 7 hypertension: Remain well controlled on current medication with metoprolol spironolactone and lisinopril. 8 chronic kidney disease: Stage III creatinine slightly but better at this point patient is seen nephrology regular basis. 9 chronic depression: Patient remain on Zoloft and BuSpar. 10 seizure with no seizure activity lately symptom has been under control patient seen neurology continue with Depakote CAD she is off Keppra. 11 hyperlipidemia: Remain on pravastatin 20 mg daily. 12 hypothyroidism: Continue patient on levothyroxine 112 g daily. 13 GI bleed and severe gastritis: Has been on pantoprazole continue medication watch for any bleed. 14 adrenal insufficiency: Patient has been on fludrocortisone and blood pressure has been doing much better she is off hydrocortisone currently. DVT prophylaxis: On anticoagulation. GI prophylaxis: On pantoprazole. Discharge plan: To be determined. PT and OT added. Patient has been a [facility] in the past. Impression and plan of care have been directed as dictated by the signing physician. Nubia Caruso nurse practitioner acting as scribe for signing physician.
[2020-04-15 11:35] LABS: Glucose,Whole Blood 186 mg/dL (75-99)
--- NOTE | 2020-04-15 12:24 | P.CRDCN ---
History of Present Illness History of present illness: This is Lidia Contreras PA-C dictating a consult on this patient The patient was interviewed and examined by me as well as by Dr. Herzog Case discussed with Dr. Herzog and he agrees with the plan of care HPI Patient is a 79-year-old female with a history significant for CVA, diabetes, PAF, chronic respiratory failure on home oxygen, congestive heart failure, and was recently treated for infective endocarditis a few months ago. She follows with Dr. Rae. She presented with complaints of nausea, vomiting, and shortness of breath. For the last week she has had abdominal pain, nausea and vomiting. No diarrhea. Denies any fevers. She has also been progressively more short of breath. Denies any chest pain. She does have some mild dizziness, denies any syncope. Upon presentation to the emergency department her temperature was 97.9F, pulse 58, respirations 20, blood pressure 133/65, oxygen saturation 91% on 3 L nasal cannula. Chest x-ray shows COPD, chronic pleural parenchymal changes, small bilateral pleural effusions. EKG shows sinus mechanism with right bundle branch block and T-wave inversions inferiorly and in the precordial leads, similar to previous EKGs. Troponin was negative. BMP 31,000. Patient seen and examined resting in bed. Continues to complain of nausea and shortness of breath. Denies any chest pain. ROS: No fevers, chills or rigors, no cough, phlegm or expectoration, Positive for nausea, vomiting, no diarrhea no hematuria, dysuria, Denies musculoskeletal complaints no strokes or seizures, no skin lesions. EXAMINATION: Patient is afebrile, pulse in the 60s, respirations 18, blood pressure 142/77, oxygen saturation 97% on 3 L nasal cannula Patient seen and examined resting in bed, does not appear to be in any acute distress Lungs with crackles bilaterally Heart is regular, systolic murmur audible No elevated JVD No lower extremity edema REVIEW OF LABS, ECG & MEDICAL DATA WBC 8.7, hemoglobin 11.8, platelets 275, potassium 4.3, BUN 38, creatinine 1.2 Troponin negative 1 BMP 31,000 IMPRESSION / ASSESSMENT: #1 dyspnea secondary to combination of acute on chronic congestive heart failure, diastolic and COPD #2 paroxysmal atrial fibrillation on anticoagulation with eliquis, currently in sinus rhythm #3 history of infective endocarditis #4 history of CVA #5 diabetes #6 chronic respiratory failure on home oxygen #7 hypertension PLAN: Repeat echocardiogram to assess cardiac structure and function continue current cardiac medication regimen, Continue with diuresis Monitor daily weights I's and O's, BMP Past Medical History Past Medical History: Heart Failure, CVA/TIA, Diabetes Mellitus, Hypertension, Renal Disease Additional Past Medical History / Comment(s): TIAs 4 with previous TIA 18 months ago. Motor seizures left leg anemic, irregular heart beat; murmur, pneum History of Any Multi-Drug Resistant Organisms: None Reported Past Surgical History: Appendectomy, Hysterectomy, Orthopedic Surgery Additional Past Surgical History / Comment(s): left knee arthroscopy, cyst removal (pilonidal cyst) Past Anesthesia/Blood Transfusion Reactions: No Reported Reaction Smoking Status: Never smoker - Past Family History Brother(s) Additional Family Medical History / Comment(s): The patient has 2 brothers and both are . One from aspiration pneumonia with history of stomach cancer. A second brother from melanoma. Father Family Medical History: Congestive Heart Failure (CHF) Additional Family Medical History / Comment(s): Father at age 65 from heart failure. Mother Family Medical History: Congestive Heart Failure (CHF) Additional Family Medical History / Comment(s): Mother at age 92 from heart failure and had previous history of coronary artery disease with several MIs. Sister(s) Family Medical History: Cancer Additional Family Medical History / Comment(s): The patient has 2 sisters. One is stage IV breast cancer survivor and history of diverticulitis. Second sister has many medical problems. Son(s) Family Medical History: Hypertension Medications and Allergies Home Medications Medication Instructions Recorded Confirmed Type Pravastatin Sodium [Pravachol] 20 mg PO DAILY 04/23/14 04/14/20 History Acetaminophen Tab [Tylenol] 650 mg PO Q6H PRN 05/20/19 04/14/20 History Budesonide 1 mg INHALATION RT-BID PRN 05/20/19 04/14/20 History Ferrous Sulfate [Iron (65 MG 325 mg PO BID 05/20/19 04/14/20 History Elemental)] Levothyroxine Sodium 112 mcg PO DAILY 05/20/19 04/14/20 History Lisinopril [Prinivil] 5 mg PO DAILY 05/20/19 04/14/20 History Magnesium Oxide 400 mg PO DAILY 05/20/19 04/14/20 History Melatonin 10 mg PO HS 05/20/19 04/14/20 History Sertraline [Zoloft] 50 mg PO DAILY 05/20/19 04/14/20 History Multivitamins, Thera [Multivitamin 1 tab PO DAILY 09/23/19 04/14/20 History (formulary)] Cyanocobalamin (Vitamin B-12) 1,000 mcg PO DAILY 09/26/19 04/14/20 History [Vitamin B-12] Fludrocortisone Acetate 0.1 mg PO BID 10/24/19 04/14/20 History Furosemide [Lasix] 40 mg PO DAILY 10/24/19 04/14/20 History Sodium Bicarbonate Tab 650 mg PO BID 10/24/19 04/14/20 History Spironolactone [Aldactone] 25 mg PO DAILY 10/24/19 04/14/20 History busPIRone HCl [Buspar] 10 mg PO BID 10/24/19 04/14/20 History Albuterol Nebulized [Ventolin 1.25 mg INHALATION RT-Q4H PRN 04/14/20 04/14/20 History Nebulized] Albuterol Sulfate [Proair Hfa] 2 puff INHALATION RT-Q4H PRN 04/14/20 04/14/20 History Apixaban [Eliquis] 2.5 mg PO BID 04/14/20 04/14/20 History Carvedilol [Coreg] 3.125 mg PO BID 04/14/20 04/14/20 History Clopidogrel [Plavix] 75 mg PO DAILY 04/14/20 04/14/20 History Divalproex Sodium 250 mg PO BID 04/14/20 04/14/20 History INSULIN LISPRO (HumaLOG) [humaLOG] See Protocol SQ AC-TID 04/14/20 04/14/20 History Insulin Glargine [Lantus] See Protocol SQ HS 04/14/20 04/14/20 History Metoprolol Tartrate [Lopressor] 25 mg PO BID 04/14/20 04/14/20 History Pantoprazole [Protonix] 40 mg PO DAILY 04/14/20 04/14/20 History Psyllium Husk [Metamucil] 0.4 gm PO DAILY 04/14/20 04/14/20 History Sennosides [Senna] 17.2 mg PO DAILY PRN 04/14/20 04/14/20 History Allergies Allergy/AdvReac Type Severity Reaction Status Date / Time doxycycline calcium Allergy Anaphylaxis Verified 04/14/20 14:06 [From Vibramycin] doxycycline hyclate Allergy Anaphylaxis Verified 04/14/20 14:06 [From Vibramycin] doxycycline monohydrate Allergy Anaphylaxis Verified 04/14/20 14:06 [From Vibramycin] erythromycin base Allergy Anaphylaxis Verified 04/14/20 14:06 Iodinated Contrast Media Allergy Anaphylaxis Verified 04/14/20 14:06 [Iodinated Contrast Media - IV Dye] Physical Exam Vitals: Vital Signs Temp Pulse Pulse Resp BP BP Pulse Ox 04/15/20 12:00 98.2 F 62 18 142/77 97 04/15/20 11:55 60 04/15/20 11:41 56 L 04/15/20 11:01 59 L 18 04/15/20 08:34 60 04/15/20 08:20 58 L 04/15/20 07:48 97.7 F 59 L 18 150/79 99 04/15/20 07:25 55 L 16 04/15/20 04:00 97.9 F 55 L 16 147/73 96 04/15/20 00:00 97.6 F 55 L 16 125/55 95 04/14/20 20:00 98.7 F 55 L 16 112/56 96 04/14/20 16:00 20 04/14/20 15:20 98.4 F 59 L 18 176/94 98 04/14/20 14:06 98.0 F 54 L 18 130/60 97 Intake and Output 04/14/20 04/15/20 04/15/20 22:59 06:59 14:59 Intake Total 686 240 Output Total 300 Balance 686 -300 240 Intake: Oral 686 240 Output: Urine 300 Other: Voiding Method Bedpan Bedpan # Voids 1 1 Weight 54.1 kg Results 04/14/20 12:32 04/14/20 12:32 Cardiac Enzymes 04/14/20 04/14/20 Range/Units 12:32 12:32 AST 21 (14-36) U/L Troponin I <0.012 (0.000-0.034) ng/mL Coagulation 04/14/20 Range/Units 12:32 PT 10.6 (9.0-12.0) sec APTT 24.3 (22.0-30.0) sec CBC 04/14/20 Range/Units 12:32 WBC 8.7 (3.8-10.6) k/uL RBC 3.80 (3.80-5.40) m/uL Hgb 11.8 (11.4-16.0) gm/dL Hct 37.4 (34.0-46.0) % Plt Count 275 (150-450) k/uL Comprehensive Metabolic Panel 04/14/20 Range/Units 12:32 Sodium 141 (137-145) mmol/L Potassium 4.3 (3.5-5.1) mmol/L Chloride 99 (98-107) mmol/L Carbon Dioxide 28 (22-30) mmol/L BUN 38 H (7-17) mg/dL Creatinine 1.20 H (0.52-1.04) mg/dL Glucose 210 H (74-99) mg/dL Calcium 10.4 H (8.4-10.2) mg/dL AST 21 (14-36) U/L ALT 11 (4-34) U/L Alkaline Phosphatase 54 (38-126) U/L Total Protein 7.1 (6.3-8.2) g/dL Albumin 4.4 (3.5-5.0) g/dL Current Medications Generic Name Dose Route Start Last Admin Trade Name Freq PRN Reason Stop Dose Admin Acetaminophen 650 mg 04/14/20 16:15 Tylenol Tab PO Q6H PRN Pain or Fever > 100.5 Albuterol Sulfate 1.25 mg 04/14/20 16:15 04/15/20 11:42 Ventolin Nebulized INHALATION 1.25 mg RT-Q4H PRN Administration Shortness Of Breath Albuterol Sulfate 2 puff 04/14/20 16:15 Ventolin Hfa Inhaler INHALATION RT-Q4H PRN Shortness Of Breath Apixaban 2.5 mg 04/14/20 21:00 04/15/20 07:51 Eliquis PO 2.5 mg BID JC Administration Budesonide 1 mg 04/14/20 16:15 04/15/20 07:58 Pulmicort INHALATION 1 mg RT-BID PRN Administration Shortness Of Breath Buspirone HCl 10 mg 04/14/20 21:00 04/15/20 07:51 Buspar PO 10 mg BID JC Administration Clopidogrel Bisulfate 75 mg 04/15/20 09:00 04/15/20 07:52 Plavix PO 75 mg DAILY JC Administration Cyanocobalamin 1,000 mcg 04/15/20 09:00 04/15/20 07:52 Vitamin B-12 PO 1,000 mcg DAILY JC Administration Divalproex Sodium 250 mg 04/14/20 21:00 04/15/20 07:52 Depakote PO 250 mg BID JC Administration Ferrous Sulfate 325 mg 04/14/20 21:00 04/15/20 07:52 Feosol PO 325 mg BID JC Administration Fludrocortisone Acetate 0.1 mg 04/14/20 21:00 04/15/20 07:59 Florinef PO Not Given BID JC Furosemide 40 mg 04/15/20 09:00 04/15/20 07:52 Lasix PO 40 mg DAILY JC Administration Insulin Aspart 3 unit 04/14/20 17:30 04/15/20 11:58 Novolog SQ 3 unit AC-TID JC Administration Insulin Aspart 0 unit 04/15/20 12:30 04/15/20 11:58 Novolog SQ 2 unit ACHS JC Administration Protocol Insulin Detemir 15 unit 04/14/20 21:00 04/14/20 20:56 Levemir SQ 15 unit HS JC Administration Levothyroxine Sodium 112 mcg 04/15/20 06:30 04/15/20 05:53 Synthroid PO 112 mcg DAILY@0630 JC Administration Lisinopril 5 mg 04/15/20 09:00 04/15/20 07:52 Zestril PO 5 mg DAILY JC Administration Magnesium Oxide 400 mg 04/15/20 09:00 04/15/20 07:51 Mag-Ox PO 400 mg DAILY JC Administration Melatonin 10 mg 04/14/20 21:00 04/14/20 20:56 Melatonin PO 10 mg HS JC Administration Metoprolol Tartrate 25 mg 04/14/20 21:00 04/15/20 07:52 Lopressor PO 25 mg BID JC Administration Multivitamins 1 each 04/15/20 09:00 04/15/20 07:50 Theragran PO 1 each DAILY JC Administration Ondansetron HCl 4 mg 04/15/20 09:23 04/15/20 11:56 Zofran IVP 4 mg Q6HR PRN Administration Nausea And Vomiting Pantoprazole Sodium 40 mg 04/14/20 21:00 04/15/20 07:51 Protonix IVP 40 mg BID JC Administration Pravastatin Sodium 20 mg 04/15/20 09:00 04/15/20 07:52 Pravachol PO 20 mg DAILY JC Administration Psyllium Hydrophilic Mucilloid 6 gm 04/15/20 09:00 04/15/20 07:52 Metamucil PO 6 gm DAILY JC Administration Senna 17.2 mg 04/14/20 16:15 Senokot PO DAILY PRN Constipation Sertraline HCl 50 mg 04/15/20 09:00 04/15/20 07:52 Zoloft PO 50 mg DAILY JC Administration Sodium Bicarbonate 650 mg 04/14/20 21:00 04/15/20 07:50 Sodium Bicarbonate Tab PO 650 mg BID JC Administration Spironolactone 25 mg 04/15/20 09:00 04/15/20 07:51 Aldactone PO 25 mg DAILY JC Administration Intake and Output 04/14/20 04/15/20 04/15/20 22:59 06:59 14:59 Intake Total 686 240 Output Total 300 Balance 686 -300 240 Intake: Oral 686 240 Output: Urine 300 Other: Voiding Method Bedpan Bedpan # Voids 1 1 Weight 54.1 kg 04/14/20 12:32 04/14/20 12:32
[2020-04-15] MEDS ORDERED: FUROSEMIDE 10 MG/ML 4 ML VIAL IV STA (13:15)
--- NOTE | 2020-04-15 13:15 | P.CNPUL ---
History of Present Illness Consult date: 04/15/20 Reason for consult: dyspnea, pleural effusion History of present illness: With multiple medical pounds and comorbidities. She is known to have CAD, chronic A. fib, CHF, COPD, previous history of CVA/TIA, chronic stage III kidney disease, diabetes mellitus type 2, hypertension and moderate to severe pulmonary hypertension based on the previous echocardiogram along with diastolic heart failure, and seizure disorder. The patient also has a chronic right-sided pleural effusion that was drained during a previous admission in October 2019 and the fluid was essentially transudate. This is attributed to her congestion heart failure. Subsequently, the patient had a brief hospitalization at [facility] for a pericardial effusion and the patient required a pericardiocentesis. She was apparently given antibiotics for total of 6 weeks and she was sent to a mcc at [facility] and she has been home since. The patient was noted to be having worsening shortness of breath. She apparently was at home and she developed some epigastric pain and nausea and emesis and she was getting more weak and she has been able to tolerate any food or fluid intake. Her caregiver called and was instructed for this patient to come into the emergency department. At a time of arrival, the patient had elevated lactic acid level in her chest x-ray was consistent with chronic CHF with a stable right-sided pleural effusion. No significant leukocytosis. BUN was at 38 with a creatinine of 1.2. Serum bicarb was 28. The proBNP level was 31,001 100. Troponins were negative. UA was negative. Still some was attempted 0.4. Lactic acid level was at 2.9 at time of admission and dropped down to 0.7. She is afebrile at 3 L of oxygen by nasal cannula with a pulse is 98%. Noted the patient is on a combination of Lasix and Aldactone on outpatient basis. She is still on antibiotic ventilation with Eliquis. Rest of the medications have been essentially unchanged. Review of Systems Constitutional: Reports fatigue, Reports weakness, Reports weight loss Eyes: denies as per HPI, denies blurred vision, denies bulging eye, denies decreased vision, denies diplopia, denies discharge, denies dry eye, denies irritation, denies itching, denies pain, denies photophobia, denies loss of peripheral vision, denies loss of vision, denies tunnel vision/blind spots Ears: deny: decreased hearing, ear discharge, earache, tinnitus Ears, nose, mouth and throat: Reports as per HPI Breasts: absent: as per HPI, change in shape, gynecomastia, masses, nipple discharge, pain, skin changes, swelling Cardiovascular: Reports decreased exercise tolerance, Reports dyspnea on exertion, Reports shortness of breath Respiratory: Reports dyspnea Gastrointestinal: Reports nausea, Reports vomiting Genitourinary: Reports as per HPI Menstruation: Reports as per HPI Musculoskeletal: Reports as per HPI Musculoskeletal: absent: ankle pain, ankle stiffness, ankle swelling Integumentary: Reports as per HPI Neurological: Reports weakness Endocrine: Reports as per HPI, Reports fatigue Hematologic/Lymphatic: Reports as per HPI Allergic/Immunologic: Reports as per HPI Past Medical History Past Medical History: Heart Failure, CVA/TIA, Diabetes Mellitus, Hypertension, Renal Disease Additional Past Medical History / Comment(s): CHF with diastolic dysfunction, COPD, hypertension, diabetes mellitus type 2, chronic stage III kidney disease, previous history of CVA/TIA, chronic anxiety, chronic atrial fibrillation maintained on anticoagulation with Eliquis, hypertension, chronic right-sided pleural effusion, history of pericardial effusion requiring a pericardiocentesis, seizure disorder, generalized anxiety disorder, History of Any Multi-Drug Resistant Organisms: None Reported Past Surgical History: Appendectomy, Hysterectomy, Orthopedic Surgery Additional Past Surgical History / Comment(s): left knee arthroscopy, cyst removal (pilonidal cyst) Past Anesthesia/Blood Transfusion Reactions: No Reported Reaction Smoking Status: Never smoker - Past Family History Brother(s) Additional Family Medical History / Comment(s): The patient has 2 brothers and both are . One from aspiration pneumonia with history of stomach cancer. A second brother from melanoma. Father Family Medical History: Congestive Heart Failure (CHF) Additional Family Medical History / Comment(s): Father at age 65 from heart failure. Mother Family Medical History: Congestive Heart Failure (CHF) Additional Family Medical History / Comment(s): Mother at age 92 from heart failure and had previous history of coronary artery disease with several MIs. Sister(s) Family Medical History: Cancer Additional Family Medical History / Comment(s): The patient has 2 sisters. One is stage IV breast cancer survivor and history of diverticulitis. Second sister has many medical problems. Son(s) Family Medical History: Hypertension Medications and Allergies Home Medications Medication Instructions Recorded Confirmed Type Pravastatin Sodium [Pravachol] 20 mg PO DAILY 04/23/14 04/14/20 History Acetaminophen Tab [Tylenol] 650 mg PO Q6H PRN 05/20/19 04/14/20 History Budesonide 1 mg INHALATION RT-BID PRN 05/20/19 04/14/20 History Ferrous Sulfate [Iron (65 MG 325 mg PO BID 05/20/19 04/14/20 History Elemental)] Levothyroxine Sodium 112 mcg PO DAILY 05/20/19 04/14/20 History Lisinopril [Prinivil] 5 mg PO DAILY 05/20/19 04/14/20 History Magnesium Oxide 400 mg PO DAILY 05/20/19 04/14/20 History Melatonin 10 mg PO HS 05/20/19 04/14/20 History Sertraline [Zoloft] 50 mg PO DAILY 05/20/19 04/14/20 History Multivitamins, Thera [Multivitamin 1 tab PO DAILY 09/23/19 04/14/20 History (formulary)] Cyanocobalamin (Vitamin B-12) 1,000 mcg PO DAILY 09/26/19 04/14/20 History [Vitamin B-12] Fludrocortisone Acetate 0.1 mg PO BID 10/24/19 04/14/20 History Furosemide [Lasix] 40 mg PO DAILY 10/24/19 04/14/20 History Sodium Bicarbonate Tab 650 mg PO BID 10/24/19 04/14/20 History Spironolactone [Aldactone] 25 mg PO DAILY 10/24/19 04/14/20 History busPIRone HCl [Buspar] 10 mg PO BID 10/24/19 04/14/20 History Albuterol Nebulized [Ventolin 1.25 mg INHALATION RT-Q4H PRN 04/14/20 04/14/20 History Nebulized] Albuterol Sulfate [Proair Hfa] 2 puff INHALATION RT-Q4H PRN 04/14/20 04/14/20 History Apixaban [Eliquis] 2.5 mg PO BID 04/14/20 04/14/20 History Carvedilol [Coreg] 3.125 mg PO BID 04/14/20 04/14/20 History Clopidogrel [Plavix] 75 mg PO DAILY 04/14/20 04/14/20 History Divalproex Sodium 250 mg PO BID 04/14/20 04/14/20 History INSULIN LISPRO (HumaLOG) [humaLOG] See Protocol SQ AC-TID 04/14/20 04/14/20 History Insulin Glargine [Lantus] See Protocol SQ HS 04/14/20 04/14/20 History Metoprolol Tartrate [Lopressor] 25 mg PO BID 04/14/20 04/14/20 History Pantoprazole [Protonix] 40 mg PO DAILY 04/14/20 04/14/20 History Psyllium Husk [Metamucil] 0.4 gm PO DAILY 04/14/20 04/14/20 History Sennosides [Senna] 17.2 mg PO DAILY PRN 04/14/20 04/14/20 History Allergies Allergy/AdvReac Type Severity Reaction Status Date / Time doxycycline calcium Allergy Anaphylaxis Verified 04/14/20 14:06 [From Vibramycin] doxycycline hyclate Allergy Anaphylaxis Verified 04/14/20 14:06 [From Vibramycin] doxycycline monohydrate Allergy Anaphylaxis Verified 04/14/20 14:06 [From Vibramycin] erythromycin base Allergy Anaphylaxis Verified 04/14/20 14:06 Iodinated Contrast Media Allergy Anaphylaxis Verified 04/14/20 14:06 [Iodinated Contrast Media - IV Dye] Physical Exam Vitals: Vital Signs Temp Pulse Pulse Resp BP BP Pulse Ox 04/15/20 12:00 98.2 F 62 18 142/77 97 04/15/20 11:55 60 04/15/20 11:41 56 L 04/15/20 11:01 59 L 18 04/15/20 08:34 60 04/15/20 08:20 58 L 04/15/20 07:48 97.7 F 59 L 18 150/79 99 04/15/20 07:25 55 L 16 04/15/20 04:00 97.9 F 55 L 16 147/73 96 04/15/20 00:00 97.6 F 55 L 16 125/55 95 04/14/20 20:00 98.7 F 55 L 16 112/56 96 04/14/20 16:00 20 04/14/20 15:20 98.4 F 59 L 18 176/94 98 04/14/20 14:06 98.0 F 54 L 18 130/60 97 Intake and Output 04/14/20 04/15/20 04/15/20 22:59 06:59 14:59 Intake Total 686 240 Output Total 300 Balance 686 -300 240 Intake: Oral 686 240 Output: Urine 300 Other: Voiding Method Bedpan Bedpan # Voids 1 1 Weight 54.1 kg GENERAL EXAM: Alert, very pleasant, 79-year-old white female patient, on 2L., comfortable in no apparent distress.pulse ox in the order of 98% HEAD: Normocephalic/atraumatic. EYES: Normal reaction of pupils, equal size. Conjunctiva pink, sclera white. NOSE: Clear with pink turbinates. THROAT: No erythema or exudates. NECK: No masses, no JVD, no thyroid enlargement, no adenopathy. CHEST: No chest wall deformity. Symmetrical expansion. LUNGS: Equal air entry with bibasilar crackles, diminished breath on the right l luis base compared to the left CVS: Regular rate and rhythm, normal S1 and S2, no gallops, no murmurs, no rubs ABDOMEN: Soft, nontender. No hepatosplenomegaly, normal bowel sounds, no guarding or rigidity. EXTREMITIES: No clubbing, mild pretibial edema, no cyanosis, 2+ pulses and upper and lower extremities. MUSCULOSKELETAL: Muscle strength and tone normal. SPINE: No scoliosis or deformity SKIN: No rashes CENTRAL NERVOUS SYSTEM: Alert and oriented -3. No focal deficits, tone is normal in all 4 extremities. PSYCHIATRIC: Alert and oriented -3. Appropriate affect. Intact judgment and insight. Results - Laboratory Findings CBC and BMP: 04/14/20 12:32 04/14/20 12:32 PT/INR, D-dimer PT 10.6 sec (9.0-12.0) 04/14/20 12:32 INR 1.0 (<1.2) 04/14/20 12:32 Abnormal lab findings: Abnormal Labs 04/14/20 04/14/20 04/14/20 12:32 12:32 12:32 RDW 16.2 H Lymphocytes # 0.9 L BUN 38 H Creatinine 1.20 H Glucose 210 H POC Glucose (mg/dL) Plasma Lactic Acid Cam 2.9 H* Calcium 10.4 H Urine Protein 06/04/2804/14/20 04/14/20 15:18 16:51 20:45 RDW Lymphocytes # BUN Creatinine Glucose POC Glucose (mg/dL) 144 H 226 H Plasma Lactic Acid Cam Calcium Urine Protein Trace H 04/15/20 04/15/20 06:02 11:23 RDW Lymphocytes # BUN Creatinine Glucose POC Glucose (mg/dL) 139 H 186 H Plasma Lactic Acid Cma Calcium Urine Protein - Diagnostic Findings Chest x-ray: image reviewed Assessment and Plan Plan: #1. Acute on chronic hypoxic respiratory failure secondary to acute exacerbation of diastolic congestive heart failure, and the patient has a chronic right-sided pleural effusion that has been drained on previous occasions and the fluid was essentially transudate. The proBNP is elevated and the patient is still vessel congestion and recurrent left-sided pleural effusion and presentation is suggestive an consistent with decompensated heart failure. #2. Chronic right-sided pleural effusion details discussed above #3. History of paroxysmal atrial fibrillation on Eliquis #4. Chronic kidney disease stage III #5. History of TIA #6. Hypertension #7. Seizure disorder #8. Generalized anxiety disorder #9 pericardial effusion, infectious versus uremic versus viral. The patient underwent pericardiocentesis and this was done outside hospital and a repeat echocardiogram was ordered to reevaluate the presence of any residual pleural effusion #10 diabetes mellitus type 2 #11 hypothyroidism #13 hyperlipidemia Plan Repeat echo of the heart for the above-mentioned reasons May recommend diuresis with Lasix, suggest IV with close monitoring of the renal function. I will give her additional dose of Lasix 40 mg IV push for now and continue the maintenance of 40 on a daily basis Continue anticoagulation with Eliquis Resume all medications Do not see the need to do another thoracentesis of the right lung as this has been confirmed to be a transudate. We'll continue to follow
[2020-04-15 15:12] VITALS: BMI 21.1
[2020-04-15 16:45] LABS: Glucose,Whole Blood 104 mg/dL (75-99)
[2020-04-15 20:47] LABS: Glucose,Whole Blood 195 mg/dL (75-99)
[2020-04-15] MEDS: MELATONIN 5 MG TABLET PO SCH (21:14)
[2020-04-15] MEDS: PANTOPRAZOLE 40 MG TABLET PO SCH (21:15)
[2020-04-15] MEDS: INSULIN DETEMIR (LEVEMIR) 100 UNIT/ML SYR SQ SCH (21:15)
[2020-04-16] MEDS: LEVOTHYROXINE 112 MCG TAB PO SCH (05:55)
[2020-04-16 06:22] LABS: Glucose,Whole Blood 98 mg/dL (75-99)
[2020-04-16] MEDS: INSULIN ASPART (NovoLOG) 100 UNIT/ML VIAL SQ SCH ×7 (06:25→21:23)
[2020-04-16 07:43] LABS: Calcium 9.2 mg/dL (8.4-10.2); Potassium 4.2 mmol/L (3.5-5.1)
[2020-04-16] MEDS: BUDESONIDE 1 MG/2 ML NEBU INHALATION PRN ×2 (09:18→20:41)
[2020-04-16] MEDS: ALBUTEROL NEBULIZED 1.25 MG/3 ML INHALATION PRN ×2 (09:18→20:41)
[2020-04-16] MEDS: MAGNESIUM OXIDE 400 MG TAB PO SCH (09:30)
[2020-04-16] MEDS: APIXABAN 2.5 MG TABLET PO SCH ×2 (09:30→21:22)
[2020-04-16] MEDS: FUROSEMIDE 40 MG TAB PO SCH (09:30)
[2020-04-16] MEDS: PANTOPRAZOLE 40 MG TABLET PO SCH ×2 (09:30→21:22)
[2020-04-16] MEDS: METOPROLOL TARTRATE 25 MG TAB PO SCH ×2 (09:30→21:22)
[2020-04-16] MEDS: FERROUS SULFATE 325 MG TAB PO SCH ×2 (09:30→21:22)
[2020-04-16] MEDS: MULTIVITAMINS, THERA 1 EACH TAB PO SCH (09:30)
[2020-04-16] MEDS: PRAVASTATIN SODIUM 20 MG TAB PO SCH (09:30)
[2020-04-16] MEDS: SODIUM BICARBONATE TAB 650 MG TAB PO SCH ×2 (09:30→21:21)
[2020-04-16] MEDS: CYANOCOBALAMIN 500 MCG TAB PO SCH (09:30)
[2020-04-16] MEDS: CLOPIDOGREL 75 MG TAB PO SCH (09:30)
[2020-04-16] MEDS: busPIRone HCl 10 MG TAB PO SCH ×2 (09:30→21:22)
[2020-04-16] MEDS: SERTRALINE 50 MG TAB PO SCH (09:30)
[2020-04-16] MEDS: SPIRONOLACTONE 25 MG TAB PO SCH (09:30)
[2020-04-16] MEDS: DIVALPROEX 250 MG TABLET.DR PO SCH ×2 (09:31→21:21)
[2020-04-16] MEDS: PSYLLIUM HUSK 100% 6 GM PACKET PO SCH (09:31)
[2020-04-16] MEDS: FLUDROCORTISONE 0.1 MG TAB PO SCH ×2 (09:31→21:29)
--- NOTE | 2020-04-16 11:05 | P.PN ---
Subjective Progress Note Date: 04/16/20 This is a pleasant 79-year-old female patient with history of CVA, diabetes, paroxysmal atrial fibrillation, chronic respiratory failure, on home oxygen, congestive heart failure. 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 She does follow with Dr. Carter. She underwent echocardiogram during admission in October 2019 which showed questionable vegetation on aortic valve leaflet and was scheduled for transesophageal echocardiogram with Dr. Rae in the next couple weeks as it been postponed due to COVID-19 restrictions. She presented with complaints of abdominal pain, nausea vomiting as well as complaints of being progressively more short of breath over the last week. Chest x-ray on admission showed COPD, chronic pleural parenchymal changes, small bilateral pleural effusions. EKG showed sinus mechanism with right bundle branch block and T-wave inversions inferiorly in the precordial leads, similar to previous EKGs. Troponin was negative. Anti-proBNP is 31,000. Labs this morning show BUN of 43 and creatinine 1.48. Upon examination patient is resting comfortably in bed. She's feels significantly better compared to admission. Objective - Vital Signs Vital signs: Vital Signs Temp 98.0 F 04/16/20 08:00 Pulse 55 L 04/16/20 09:31 Resp 18 04/16/20 08:00 BP 160/72 04/16/20 08:00 Pulse Ox 94 L 04/16/20 08:00 Intake & Output 04/15/20 04/16/20 04/16/20 18:59 06:59 18:59 Intake Total 720 240 236 Output Total 550 Balance 720 -310 236 Weight 54.1 kg 64 kg Intake: Oral 720 240 236 Output: Urine 550 Other: # Voids 1 0 - Exam PHYSICAL EXAMINATION: HEENT: Head is atraumatic, normocephalic. Pupils equal, round. Neck is supple. There is no elevated jugular venous pressure. HEART EXAMINATION: Heart sounds regular, S1 and S2 with a systolic murmur. CHEST EXAMINATION: Lungs reveal diminished air entry with faint crackles the bilateral bases. No chest wall tenderness is noted on palpation or with deep breathing. ABDOMEN: Soft, nontender. Bowel sounds are heard. No organomegaly noted. EXTREMITIES: 2+ peripheral pulses with no evidence of peripheral edema and no calf tenderness noted. NEUROLOGIC patient is awake, alert and oriented x3. . - Labs CBC & Chem 7: 04/14/20 12:32 04/16/20 05:56 Labs: Abnormal Lab Results - Last 24 Hours (Table) 04/15/20 04/15/20 04/15/20 Range/Units 11:23 16:26 20:45 Carbon Dioxide (22-30) mmol/L BUN (7-17) mg/dL Creatinine (0.52-1.04) mg/dL POC Glucose (mg/dL) 186 H 104 H 195 H (75-99) mg/dL 04/16/20 Range/Units 05:56 Carbon Dioxide 34 H (22-30) mmol/L BUN 43 H (7-17) mg/dL Creatinine 1.48 H (0.52-1.04) mg/dL POC Glucose (mg/dL) (75-99) mg/dL Assessment and Plan Assessment: #1 dyspnea secondary to termination of acute on chronic congestive heart failure, diastolic and COPD #2 paroxysmal atrial fibrillation on atrial fibrillation with Eliquis, currently in sinus rhythm #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 We will obtain records from [facility] when she was hospitalized with infectious pericarditis. Medications were reviewed and we will continue this same at this time however patient likely does not need Plavix in addition to the Eliquis. Keep the patient nothing by mouth after midnight for possible transesophageal echocardiogram depending on transthoracic echocardiogram results. Further recommendations to follow. LOOP TENDER note has been reviewed, I agree with a documented findings and plan of care. Patient was seen and examined.
--- NOTE | 2020-04-16 11:10 | P.PN ---
Subjective Progress Note Date: 04/16/20 79-year-old female one of my office patient for the last 20 years with multiple medical problem known to have history of atherosclerotic heart disease, A. fib, history of CVA, history of CHF and COPD who had few weeks ago and infectious pericarditis was treated with IV antibiotic for over 6 weeks was seen by an one of the cardiothoracic surgeon at [facility] and was sent to [facility] rehab for the time she was on IV antibiotics. Patient had recover and done well was discharged home successfully still require home O2. Patient was hospitalized again for mild dyspnea and shortness of breath with A. fib with RVR treated and done well remain on anticoagulation with eloquent was on Eliquis for A. fib, Plavix for CVA blood sugar has been under control lately. Apparently patient developed to have severe gastritis with mild epigastric pain nausea vomiting since Thursday last week symptom becomes slightly bit worse through the week the patient has not been able to tolerate any food or fluid. Her caregiver had called early this morning complaining about was going on with Tammi was instructed to bring [facility] where was seen. Patient is slightly dehydrated has a significant elevated BNP, had elevated lactic acid with sign and symptoms consistent with CHF with mild COPD and severe gastritis with no sign of bleed her hemoglobin has been stable since last visit. Patient was started on IV pantoprazole, IV diuretics along with updraft treatment and O2 and admitted to the hospital for the above problem. 04/15: Cardiology and pulmonary medicine on consult. Echocardiogram will be ordered. Patient states that she is scheduled for which she believes to be a KEV with Dr. Rae on April 24 and would like to have this done while hospitalized if possible. Will reach out to Dr. Rae regarding this. Patient has been afebrile, heart rate 60, blood pressure 150/79, pulse ox 99% on 3 L nasal cannula. coat fitter is a sinus rhythm. Nausea and vomiting are currently controlled. 04/16: Patient states she feels about the same from yesterday. She denies having any chest pain. She denies any shortness of breath when she is in bed. No lower extremity edema. She does complain that whenever she moves she gets an upset stomach. Repeat blood work reveals CO2 34, BUN 43 and creatinine 1.48. Lisinopril will be placed on hold. Blood sugars are running between 84 and 195. The patient was seen yesterday by pulmonary medicine with recommendations for IV Lasix, repeat echocardiogram, continue eliquis. No plan for thoracentesis on the right as this has been confirmed to be transudate. Patient is also been seen and followed by cardiology with recommendations to continue cardiac medications in diuresing. Will add in physical therapy to evaluate for home care or subacute need. Objective - Vital Signs Vital signs: Vital Signs Temp 97.9 F 04/16/20 03:59 Pulse 51 L 04/16/20 03:59 Resp 16 04/16/20 03:59 BP 127/67 04/16/20 03:59 Pulse Ox 97 04/16/20 03:59 Intake & Output 04/15/20 04/16/20 04/16/20 18:59 06:59 18:59 Intake Total 720 240 Output Total 550 Balance 720 -310 Weight 54.1 kg 64 kg Intake: Oral 720 240 Output: Urine 550 Other: # Voids 1 0 - Exam Review of Systems CONSTITUTIONAL: Well-developed no acute respiratory distress. Denies fever, d enies chills. EARS, NOSE, MOUTH, THROAT, and FACE: No sore throat, lymphadenopathy, carotid bruits or deformity. RESPIRATORY: Positive shortness of breath cough and wheezes.. CARDIOVASCULAR: Positive PND orthopnea noedema significant shortness of breath with minimum exertion. GASTROINTESTINAL: Positive nausea and vomiting with mild abdominal pain with change in bowel habit with no black stool or tarry stool no active bleed. GENITOURINARY: Negative for Hematuria or UTI, no kidney stones. INTEGUMENT/BREAST: Negative for any muscular injury with mild osteoarthritis.. HEMATOLOGIC/LYMPHATIC: Negative for bleed or purpura. MUSCULOSKELTAL: Negative for Myalgia or arthralgia. NEURLOGICAL: No LOC, Sz or syncope, blurred vision dizziness or abnormality.. Significant bilateral neuropathy with abnormal balance and gait. BEHAVIORAL/PSYCH: Negative. ENDOCRINE: Negative. Physical Examination General Appearance: Alert, cooperative, no distress, appears stated age. P atient is seen resting in bed. Neck HEENT: Supple, no lymphadenopathy, no thyroid enlargement, no carotid bruits. Lungs: Decreased breath sound bilaterally with fine rhonchi pulse mild expiratory wheezes. Chest Wall: Decrease expansion with deep inspiration no tenderness and no deformity was found on exam, no costochondral pain or discomfort. Heart: Irregular rate and rhythm, S1, S2 positive history positive 2/6 ejection systolic murmur in the apex with JVD. Back: Symmetric, no curvature, ROM normal, no CVA tenderness. Abdomen: Soft, mild tenderness epigastric area no rebound or rigidity slight tenderness in the mid abdominal region area as well. Extremities: Extremities normal, atraumatic, no cyanosis or edema. Pulses: 2+ and symmetric. Skin: Skin color, texture, tugor normal, no rashes or lesions. Neurologic: Alert oriented x3 cranial nerves II through XII intact, positive generalized weakness possibly abnormal gait imbalance patient still have trouble ambulating without help. - Labs CBC & Chem 7: 04/14/20 12:32 04/16/20 05:56 Labs: Abnormal Lab Results - Last 24 Hours (Table) 04/15/20 04/15/20 04/15/20 Range/Units 11:23 16:26 20:45 Carbon Dioxide (22-30) mmol/L BUN (7-17) mg/dL Creatinine (0.52-1.04) mg/dL POC Glucose (mg/dL) 186 H 104 H 195 H (75-99) mg/dL 04/16/20 Range/Units 05:56 Carbon Dioxide 34 H (22-30) mmol/L BUN 43 H (7-17) mg/dL Creatinine 1.48 H (0.52-1.04) mg/dL POC Glucose (mg/dL) (75-99) mg/dL Assessment and Plan Plan: 1 severe dyspnea and shortness of breath secondary to COPD and CHF. Continue Lasix 40 mg oral daily, lisinopril 5 mg daily, Lopressor 25 mg twice daily. Monitor I&O and daily weights. Coreg will be discontinued. 2 CHF: Mostly diastolic acute on chronic was start patient on IV diuretics watch daily weight watch for any worsening symptoms and with the slight change it's probably worth the effort to run another echocardiogram to compare to the last 1 since her endocarditis see any major abnormality or change with her valvular heart disease. Echocardiogram and possible KEV on this admission. 3 COPD with mild exacerbation. Continue on O2 continue DuoNeb and Pulmicort no steroid at this point. 4 atrial fibrillation paroxysmal. Continue eliquis 5 mg twice daily and metoprolol 25 mg twice a day. Discontinue Coreg 5 multiple CVA and TIA: Patient remain on Plavix continue to control her blood pressure continue secondary prevention with statin as well. 6 diabetes type 2: Continue patient on Lantus and NovoLog with Accu-Chek with sliding scales coverage and adjust dose as needed. 7 hypertension: Remain well controlled on current medication with metoprolol spironolactone and lisinopril will be placed on hold. 8 chronic kidney disease: Stage III. Hold lisinopril. 9 chronic depression: Patient remain on Zoloft and BuSpar. 10 seizure with no seizure activity lately symptom has been under control patient seen neurology continue with Depakote CAD she is off Keppra. 11 hyperlipidemia: Remain on pravastatin 20 mg daily. 12 hypothyroidism: Continue patient on levothyroxine 112 g daily. 13 GI bleed and severe gastritis: Has been on pantoprazole continue medication watch for any bleed. 14 adrenal insufficiency: Patient has been on fludrocortisone and blood pressure has been doing much better she is off hydrocortisone currently. DVT prophylaxis: On anticoagulation. GI prophylaxis: On pantoprazole. Discharge plan: To be determined. PT and OT added. Patient has been a [facility] in the past. Impression and plan of care have been directed as dictated by the signing physician. Nubia Caruso nurse practitioner acting as scribe for signing physician.
[2020-04-16 12:12] LABS: Glucose,Whole Blood 131 mg/dL (75-99)
--- NOTE | 2020-04-16 12:36 | ECHOF ---
Referral Reason:LVF MEASUREMENTS -------- HEIGHT: 160.0 cm WEIGHT: 64.0 kg BP: 127/67 RVIDd: 3.3 cm (< 3.3) IVSd: 1.7 cm (0.6 - 1.1) LVIDd: 3.5 cm (3.9 - 5.3) LVPWd: 1.4 cm (0.6 - 1.1) IVSs: 1.6 cm LVIDs: 2.1 cm LVPWs: 1.9 cm LA Diam: 3.9 cm (2.7 - 3.8) LAESV Index (A-L): 29.73 ml/m Ao Diam: 3.1 cm (2.0 - 3.7) MV EXCURSION: 14.577 mm (> 18.000) MV EF SLOPE: 22 mm/s (70 - 150) EPSS: 0.7 cm MV E Eddi: 1.01 m/s MV DecT: 490 ms MV A Eddi: 0.37 m/s MV E/A Ratio: 2.75 RAP: 15.00 mmHg RVSP: 77.90 mmHg FINDINGS -------- Sinus rhythm. This was a technically adequate study. The left ventricular size is normal. There is severe concentric left ventricular hypertrophy. Lef t ventricular systolic function is hyperdynamic with an estimated EF of >70%. The right ventricle is mildly enlarged. LA is midly dilated 29-33ml/m2. The right atrium is normal in size. 5.0mg of Lumason was utilized for enhancement of images Interatrial and interventricular septum intact. There is mild aortic valve sclerosis. Trace amount of aortic regurgitation. Mild mitral annular calcification present. Moderate tricuspid regurgitation present. There is severe pulmonary hypertension. The right ventr icular systolic pressure, as measured by Doppler, is 77.90mmHg. Trace/mild (physiologic) pulmonic regurgitation. The aortic root size is normal. Normal inferior vena cava with less than 50% inspiratory collapse consistent with estimated right atr ial pressure of 15 mmHg. There is no pericardial effusion. CONCLUSIONS -------- 1. Sinus rhythm. 2. This was a technically adequate study. 3. The left ventricular size is normal. 4. There is severe concentric left ventricular hypertrophy. 5. Left ventricular systolic function is hyperdynamic with an estimated EF of >70%. 6. The right ventricle is mildly enlarged. 7. LA is midly dilated 29-33ml/m2. 8. The right atrium is normal in size. 9. 5.0mg of Lumason was utilized for enhancement of images 10. Interatrial and interventricular septum intact. 11. There is mild aortic valve sclerosis. 12. Trace amount of aortic regurgitation. 13. Mild mitral annular calcification present. 14. Moderate tricuspid regurgitation present. 15. There is severe pulmonary hypertension. 16. The right ventricular systolic pressure, as measured by Doppler, is 77.90mmHg. 17. Trace/mild (physiologic) pulmonic regurgitation. 18. The aortic root size is normal. 19. Normal inferior vena cava with less than 50% inspiratory collapse consistent with estimated right atrial pressure of 15 mmHg. 20. There is no pericardial effusion. COILER: Miladis Bhandari RDCS
--- NOTE | 2020-04-16 14:50 | P.PN ---
Subjective Progress Note Date: 04/16/20 Principal diagnosis: Acute on chronic hypoxic arrest or failure secondary to acute exacerbation of diastolic congestive heart failure and chronic right-sided pleural effusion With multiple medical pounds and comorbidities. She is known to have CAD, chronic A. fib, CHF, COPD, previous history of CVA/TIA, chronic stage III kidney disease, diabetes mellitus type 2, hypertension and moderate to severe pulmonary hypertension based on the previous echocardiogram along with diastolic heart failure, and seizure disorder. The patient also has a chronic right-sided pleural effusion that was drained during a previous admission in October 2019 and the fluid was essentially transudate. This is attributed to her congestion heart failure. Subsequently, the patient had a brief hospitalization at [facility] for a pericardial effusion and the patient required a pericardiocentesis. She was apparently given antibiotics for total of 6 weeks and she was sent to a residential at [facility] and she has been home since. The patient was noted to be having worsening shortness of breath. She apparently was at home and she developed some epigastric pain and nausea and emesis and she was getting more weak and she has been able to tolerate any food or fluid intake. Her caregiver called and was instructed for this patient to come into the emergency department. At a time of arrival, the patient had elevated lactic acid level in her chest x-ray was consistent with chronic CHF with a stable right-sided pleural effusion. No significant leukocytosis. BUN was at 38 with a creatinine of 1.2. Serum bicarb was 28. The proBNP level was 31,001 100. Troponins were negative. UA was negative. Still some was attempted 0.4. Lactic acid level was at 2.9 at time of admission and dropped down to 0.7. She is afebrile at 3 L of oxygen by nasal cannula with a pulse is 98%. Noted the patient is on a combination of Lasix and Aldactone on outpatient basis. She is still on antibiotic ventilation with Eliquis. Rest of the medications have been essentially unchanged. Reevaluated today on 04/16/20, patient is doing a bit better, breathing easier, remains on 3 L nasal cannula, and her O2 saturation is 100%. Blood pressure is stable. Patient remains on diuretics, labs are unremarkable except for elevated bicarb of 34 BUN is 43 creatinine is 1.48. Patient is also on bronchodilators in the form of albuterol, she is on Pulmicort, and on Lasix 40 mg by mouth daily. IV fluid is at KVO, and she is on Aldactone at 25 mg daily Objective - Vital Signs Vital signs: Vital Signs Temp 98.0 F 04/16/20 08:00 Pulse 51 L 04/16/20 12:00 Resp 18 04/16/20 12:00 BP 142/65 04/16/20 12:00 Pulse Ox 100 04/16/20 12:00 Intake & Output 04/15/20 04/16/20 04/16/20 18:59 06:59 18:59 Intake Total 720 240 472 Output Total 550 525 Balance 720 -310 -53 Weight 54.1 kg 64 kg Intake: Oral 720 240 472 Output: Urine 550 525 Other: # Voids 1 0 - Exam HEENT: PERRLA, EOMI, no icterus. Dry mucous membranes. CHEST: No chest wall deformity. Symmetrical expansion. LUNGS: Equal air entry with bibasilar crackles, diminished breath on the right lung base compared to the left CVS: Regular rate and rhythm, normal S1 and S2, no gallops, no murmurs, no rubs ABDOMEN: Soft, nontender. No hepatosplenomegaly, normal bowel sounds, no guarding or rigidity. EXTREMITIES: No clubbing, mild pretibial edema, no cyanosis, 2+ pulses and upper and lower extremities. MUSCULOSKELETAL: Muscle strength and tone normal. SPINE: No scoliosis or deformity SKIN: No rashes CENTRAL NERVOUS SYSTEM: Alert and oriented -3. No focal deficits, tone is normal in all 4 extremities. PSYCHIATRIC: Alert and oriented -3. Appropriate affect. Intact judgment and insight. - Labs CBC & Chem 7: 04/14/20 12:32 04/16/20 05:56 Labs: Abnormal Lab Results - Last 24 Hours (Table) 04/15/20 04/15/20 04/16/20 Range/Units 16:26 20:45 05:56 Carbon Dioxide 34 H (22-30) mmol/L BUN 43 H (7-17) mg/dL Creatinine 1.48 H (0.52-1.04) mg/dL POC Glucose (mg/dL) 104 H 195 H (75-99) mg/dL 04/16/20 Range/Units 12:10 Carbon Dioxide (22-30) mmol/L BUN (7-17) mg/dL Creatinine (0.52-1.04) mg/dL POC Glucose (mg/dL) 131 H (75-99) mg/dL Assessment and Plan Assessment: Impression: Acute on chronic hypoxic respiratory failure secondary to diastolic congestive heart failure, acute exacerbation of diastolic congestive heart failure. Chronic right-sided pleural effusion previous thoracentesis and it was transudative in nature. Paroxysmal atrial fibrillation. Chronic kidney disease stage III. Benign essential hypertension. History of seizure disorder. History of pericardial effusion requiring pericardiocentesis in outside institution. Hypothyroidism. Type 2 diabetes. Dyslipidemia. History of infective endocarditis. Recommendation: Reviewed echocardiogram report which seems to be normal. Continue diuretics. Continue bronchodilators. We'll continue to follow. Monitor electrolytes and renal profile closely. Time with Patient: Less than 30
[2020-04-16 17:26] LABS: Glucose,Whole Blood 158 mg/dL (75-99)
[2020-04-16 20:41] LABS: Glucose,Whole Blood 154 mg/dL (75-99)
[2020-04-16] MEDS: MELATONIN 5 MG TABLET PO SCH (21:22)
[2020-04-16] MEDS: INSULIN DETEMIR (LEVEMIR) 100 UNIT/ML SYR SQ SCH (21:22)
[2020-04-16 23:04] LABS: Glucose,Whole Blood 197 mg/dL (75-99)
[2020-04-17 06:23] LABS: Glucose,Whole Blood 114 mg/dL (75-99)
[2020-04-17] MEDS: LEVOTHYROXINE 112 MCG TAB PO SCH (06:25)
[2020-04-17] MEDS: INSULIN ASPART (NovoLOG) 100 UNIT/ML VIAL SQ SCH ×7 (06:26→20:27)
[2020-04-17 07:15] LABS: Calcium 8.9 mg/dL (8.4-10.2)
[2020-04-17 07:38] LABS: Potassium 4.9 mmol/L (3.5-5.1)
[2020-04-17] MEDS: SODIUM BICARBONATE TAB 650 MG TAB PO SCH ×2 (09:15→20:34)
[2020-04-17] MEDS: FERROUS SULFATE 325 MG TAB PO SCH ×2 (09:15→20:34)
[2020-04-17] MEDS: CYANOCOBALAMIN 500 MCG TAB PO SCH (09:15)
[2020-04-17] MEDS: APIXABAN 2.5 MG TABLET PO SCH ×2 (09:16→20:34)
[2020-04-17] MEDS: PRAVASTATIN SODIUM 20 MG TAB PO SCH (09:16)
[2020-04-17] MEDS: MULTIVITAMINS, THERA 1 EACH TAB PO SCH (09:16)
[2020-04-17] MEDS: FLUDROCORTISONE 0.1 MG TAB PO SCH ×2 (09:16→20:34)
[2020-04-17] MEDS: busPIRone HCl 10 MG TAB PO SCH ×2 (09:16→20:34)
[2020-04-17] MEDS: PANTOPRAZOLE 40 MG TABLET PO SCH ×2 (09:16→20:34)
[2020-04-17] MEDS: CLOPIDOGREL 75 MG TAB PO SCH (09:16)
[2020-04-17] MEDS: FUROSEMIDE 40 MG TAB PO SCH (09:17)
[2020-04-17] MEDS: SPIRONOLACTONE 25 MG TAB PO SCH (09:17)
[2020-04-17] MEDS: MAGNESIUM OXIDE 400 MG TAB PO SCH (09:17)
[2020-04-17] MEDS: DIVALPROEX 250 MG TABLET.DR PO SCH ×2 (09:17→20:34)
[2020-04-17] MEDS: METOPROLOL TARTRATE 25 MG TAB PO SCH ×2 (09:17→20:34)
[2020-04-17] MEDS: SERTRALINE 50 MG TAB PO SCH (09:17)
[2020-04-17] MEDS: PSYLLIUM HUSK 100% 6 GM PACKET PO SCH (09:18)
[2020-04-17] MEDS: BUDESONIDE 1 MG/2 ML NEBU INHALATION PRN ×2 (09:30→20:26)
[2020-04-17] MEDS: ALBUTEROL NEBULIZED 2.5 MG/3 ML INHALATION PRN ×2 (09:30→20:26)
--- NOTE | 2020-04-17 11:42 | P.PN ---
Subjective Progress Note Date: 04/17/20 This is a pleasant 79-year-old female patient with history of CVA, diabetes, paroxysmal atrial fibrillation, chronic respiratory failure, on home oxygen, congestive heart failure. 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 She does follow with Dr. Carter. She underwent echocardiogram during admission in October 2019 which showed questionable vegetation on aortic valve leaflet and was scheduled for transesophageal echocardiogram with Dr. Rae in the next couple weeks as it been postponed due to COVID-19 restrictions. She presented with complaints of abdominal pain, nausea vomiting as well as complaints of being progressively more short of breath over the last week. Chest x-ray on admission showed COPD, chronic pleural parenchymal changes, small bilateral pleural effusions. EKG showed sinus mechanism with right bundle branch block and T-wave inversions inferiorly in the precordial leads, similar to previous EKGs. Troponin was negative. Anti-proBNP is 31,000. Labs this morning show BUN of 43 and creatinine 1.48. Upon examination patient is resting comfortably in bed. She's feels significantly better compared to admission. 04/17/2020 Patient was seen and examined this morning sitting up in bed resting comfortably. She is overall feeling quite a bit better today. Her breathing is stable. She denies chest discomfort, palpitations, or dizziness. Her breathing is stable. Echocardiogram showed severe LVH with hyperdynamic LV systolic function with an estimated ejection fraction of greater than 70%, mildly enlarged RV, moderate TR and severe pulmonary hypertension with no evidence of vegetation in the aortic valve. Left shown improvement in her renal function since yesterday with a BUN of 30 and creatinine 1.28. Objective - Vital Signs Vital signs: Vital Signs Temp 98.2 F 04/17/20 08:00 Pulse 56 L 04/17/20 09:45 Resp 16 04/17/20 08:00 BP 162/71 04/17/20 08:00 Pulse Ox 97 04/17/20 08:00 Intake & Output 04/16/20 04/17/20 04/17/20 18:59 06:59 18:59 Intake Total 472 240 Output Total 525 250 Balance -53 -10 Weight 60 kg Intake: Oral 472 240 Output: Urine 525 250 - Exam PHYSICAL EXAMINATION: HEENT: Head is atraumatic, normocephalic. Pupils equal, round. Neck is supple. There is no elevated jugular venous pressure. HEART EXAMINATION: Heart sounds regular, S1 and S2 with a systolic murmur. CHEST EXAMINATION: Lungs reveal diminished air entry. No chest wall tenderness is noted on palpation or with deep breathing. ABDOMEN: Soft, nontender. Bowel sounds are heard. No organomegaly noted. EXTREMITIES: 2+ peripheral pulses with no evidence of peripheral edema and no calf tenderness noted. NEUROLOGIC patient is awake, alert and oriented x3. . - Labs CBC & Chem 7: 04/14/20 12:32 04/17/20 06:04 Labs: Abnormal Lab Results - Last 24 Hours (Table) 04/16/20 04/16/20 04/16/20 Range/Units 12:10 17:20 20:40 BUN (7-17) mg/dL Creatinine (0.52-1.04) mg/dL Glucose (74-99) mg/dL POC Glucose (mg/dL) 131 H 158 H 154 H (75-99) mg/dL 04/16/20 04/17/20 04/17/20 Range/Units 23:02 06:04 06:21 BUN 48 H (7-17) mg/dL Creatinine 1.28 H (0.52-1.04) mg/dL Glucose 102 H (74-99) mg/dL POC Glucose (mg/dL) 197 H 114 H (75-99) mg/dL Assessment and Plan Assessment: #1 dyspnea secondary to combination of acute on chronic congestive heart failure, diastolic and COPD #2 paroxysmal atrial fibrillation on atrial fibrillation with Eliquis, currently in sinus rhythm #3 history of infective endocarditis #4 possible aortic valve leaflet vegetation on echocardiogram done in October with no evidence of this on echocardiogram done this admission #5 history of CVA #6 chronic respiratory failure on home oxygen #7 hypertension Plan: From cardiology's perspective, no evidence of aortic valve vegetation on echocardiogram done yesterday and therefore no indication for KEV at this time. Medications were reviewed and will continue the same. We'll continue to follow the patient during this admission and provide further recommendations accordingly. [employer] note has been reviewed, I agree with a documented findings and plan of care. Patient was seen and examined.
[2020-04-17 11:53] LABS: Glucose,Whole Blood 162 mg/dL (75-99)
--- NOTE | 2020-04-17 12:46 | P.PN ---
Subjective Progress Note Date: 04/17/20 Principal diagnosis: Acute on chronic hypoxic respiratory failure secondary to acute exacerbation of diastolic CHF and chronic right-sided pleural effusion 79-year-old white female with multiple medical pounds and comorbidities. She is known to have CAD, chronic A. fib, CHF, COPD, previous history of CVA/TIA, chronic stage III kidney disease, diabetes mellitus type 2, hypertension and moderate to severe pulmonary hypertension based on the previous echocardiogram along with diastolic heart failure, and seizure disorder. The patient also has a chronic right-sided pleural effusion that was drained during a previous admission in October 2019 and the fluid was essentially transudate. This is attributed to her congestion heart failure. Subsequently, the patient had a b [facility] hospitalization at [facility] for a pericardial effusion and the patient required a pericardiocentesis. She was apparently given antibiotics for total of 6 weeks and she was sent to a penitentiary at [facility] and she has been home since. The patient was noted to be having worsening shortness of breath. She apparently was at home and she developed some epigastric pain and nausea and emesis and she was getting more weak and she has been able to tolerate any food or fluid intake. Her caregiver called and was instructed for this patient to come into the emergency department. At a time of arrival, the patient had elevated lactic acid level in her chest x-ray was consistent with chronic CHF with a stable right-sided pleural effusion. No significant leukocytosis. BUN was at 38 with a creatinine of 1.2. Serum bicarb was 28. The proBNP level was 31,001 100. Troponins were negative. UA was negative. Still some was attempted 0.4. Lactic acid level was at 2.9 at time of admission and dropped down to 0.7. She is afebrile at 3 L of oxygen by nasal cannula with a pulse is 98%. Noted the patient is on a combination of Lasix and Aldactone on outpatient basis. She is still on antibiotic ventilation with Eliquis. Rest of the medications have been essentially unchanged. Reevaluated today on 04/16/20, patient is doing a bit better, breathing easier, remains on 3 L nasal cannula, and her O2 saturation is 100%. Blood pressure is stable. Patient remains on diuretics, labs are unremarkable except for elevated bicarb of 34 BUN is 43 creatinine is 1.48. Patient is also on bronchodilators in the form of albuterol, she is on Pulmicort, and on Lasix 40 mg by mouth daily. IV fluid is at KVO, and she is on Aldactone at 25 mg daily On 04/17/2020 patient seen in follow-up on selective care unit, she is resting comfortably in bed, she has no acute distress, no worsening dyspnea, seems to be pre-comfortable, no compressive chest pain. She is on 3 L of oxygen and a pulse ox of 97%, hemodynamically stable, vital signs are stable, no worsening dyspnea. She continues on maintenance dose of oral Lasix. She's had no fever or chills. Renal function was improving, electrolytes are within normal limits, BUN is 48, and creatinine is 1.28 Objective - Vital Signs Vital signs: Vital Signs Temp 98.2 F 04/17/20 08:00 Pulse 56 L 04/17/20 09:45 Resp 16 04/17/20 08:00 BP 162/71 04/17/20 08:00 Pulse Ox 97 04/17/20 08:00 Intake & Output 04/16/20 04/17/20 04/17/20 18:59 06:59 18:59 Intake Total 472 240 Output Total 525 250 Balance -53 -10 Weight 60 kg Intake: Oral 472 240 Output: Urine 525 250 - Exam GENERAL EXAM: Alert, very pleasant, 71-year-old white female on 3 L of oxygen the pulse ox of 97% comfortable in no apparent distress. HEAD: Normocephalic/atraumatic. EYES: Normal reaction of pupils, equal size. Conjunctiva pink, sclera white. NOSE: Clear with pink turbinates. THROAT: No erythema or exudates. NECK: No masses, no JVD, no thyroid enlargement, no adenopathy. CHEST: No chest wall deformity. Symmetrical expansion. LUNGS: Equal air entry with no crackles, wheeze, rhonchi or dullness. CVS: Regular rate and rhythm, normal S1 and S2, no gallops, no murmurs, no rubs ABDOMEN: Soft, nontender. No hepatosplenomegaly, normal bowel sounds, no guarding or rigidity. EXTREMITIES: No clubbing, no edema, no cyanosis, 2+ pulses and upper and lower extremities. MUSCULOSKELETAL: Muscle strength and tone normal. SPINE: No scoliosis or deformity SKIN: No rashes CENTRAL NERVOUS SYSTEM: Alert and oriented -3. No focal deficits, tone is normal in all 4 extremities. PSYCHIATRIC: Alert and oriented -3. Appropriate affect. Intact judgment and insight. - Labs CBC & Chem 7: 04/14/20 12:32 04/17/20 06:04 Labs: Abnormal Lab Results - Last 24 Hours (Table) 04/16/20 04/16/20 04/16/20 Range/Units 17:20 20:40 23:02 BUN (7-17) mg/dL Creatinine (0.52-1.04) mg/dL Glucose (74-99) mg/dL POC Glucose (mg/dL) 158 H 154 H 197 H (75-99) mg/dL 04/17/20 04/17/20 04/17/20 Range/Units 06:04 06:21 11:52 BUN 48 H (7-17) mg/dL Creatinine 1.28 H (0.52-1.04) mg/dL Glucose 102 H (74-99) mg/dL POC Glucose (mg/dL) 114 H 162 H (75-99) mg/dL Assessment and Plan Plan: Assessment: Acute on chronic hypoxic respiratory failure secondary to diastolic congestive heart failure, acute exacerbation of diastolic congestive heart failure. Chronic right-sided pleural effusion previous thoracentesis and it was transudative in nature. Paroxysmal atrial fibrillation. Chronic kidney disease stage III. Benign essential hypertension. History of seizure disorder. History of pericardial effusion requiring pericardiocentesis in outside institution. Hypothyroidism. Type 2 diabetes. Dyslipidemia. History of infective endocarditis. Plan: Continue current medical treatment, breathing is comfortable, no complaints of chest pain, no plans for thoracentesis, continue medical treatment, increase activity as tolerated. Continue bronchodilators. Profile is improving, continue monitoring electrolytes and renal profile. From pulmonary perspective patient can be considered for discharge home tomorrow if she's stable and has been cleared by cardiology I performed a history & physical examination of the patient and discussed their management with my nurse practitioner, Amelia Springer. I reviewed the nurse practitioner's note and agree with the documented findings and plan of care. Lung sounds are positive for diminished breath sounds. The findings and the impression was discussed with the patient. I attest to the documentation by the nurse practitioner. Time with Patient: Less than 30
--- NOTE | 2020-04-17 13:53 | P.PN ---
Subjective Progress Note Date: 04/17/20 79-year-old female one of my office patient for the last 20 years with multiple medical problem known to have history of atherosclerotic heart disease, A. fib, history of CVA, history of CHF and COPD who had few weeks ago and infectious pericarditis was treated with IV antibiotic for over 6 weeks was seen by an one of the cardiothoracic surgeon at [facility] and was sent to [facility] rehab for the time she was on IV antibiotics. Patient had recover and done well was discharged home successfully still require home O2. Patient was hospitalized again for mild dyspnea and shortness of breath with A. fib with RVR treated and done well remain on anticoagulation with eloquent was on Eliquis for A. fib, Plavix for CVA blood sugar has been under control lately. Apparently patient developed to have severe gastritis with mild epigastric pain nausea vomiting since Thursday last week symptom becomes slightly bit worse through the week the patient has not been able to tolerate any food or fluid. Her caregiver had called early this morning complaining about was going on with Tammi was instructed to bring her to [facility] where was seen. Patient is slightly dehydrated has a significant elevated BNP, had elevated lactic acid with sign and symptoms consistent with CHF with mild COPD and severe gastritis with no sign of bleed her hemoglobin has been stable since last visit. Patient was started on IV pantoprazole, IV diuretics along with updraft treatment and O2 and admitted to the hospital for the above problem. 04/15: Cardiology and pulmonary medicine on consult. Echocardiogram will be ordered. Patient states that she is scheduled for which she believes to be a KEV with Dr. Rae on April 24 and would like to have this done while hospitalized if possible. Will reach out to Dr. Rae regarding this. Patient has been afebrile, heart rate 60, blood pressure 150/79, pulse ox 99% on 3 L nasal cannula. telemetry monitor is a sinus rhythm. Nausea and vomiting are currently controlled. 04/16: Patient states she feels about the same from yesterday. She denies having any chest pain. She denies any shortness of breath when she is in bed. No lower extremity edema. She does complain that whenever she moves she gets an upset stomach. Repeat blood work reveals CO2 34, BUN 43 and creatinine 1.48. Lisinopril will be placed on hold. Blood sugars are running between 84 and 195. The patient was seen yesterday by pulmonary medicine with recommendations for IV Lasix, repeat echocardiogram, continue eliquis. No plan for thoracentesis on the right as this has been confirmed to be transudate. Patient is also been seen and followed by cardiology with recommendations to continue cardiac medications in diuresing. Will add in physical therapy to evaluate for home care or subacute need. 04/17: The patient denies any new complaints. She states she is feeling a lot be tter so she came in to the hospital. Lisinopril was placed on hold due to worsening renal function which is improved with BUN 48 creatinine 1.28. Blood sugars running between 102 197. Patient has been afebrile, heart rate 56, blood pressure 162/71, pulse ox 97% on 3 L nasal cannula. Cardiology does not plan to do KEV on this admission. Echocardiogram reveals EF greater than 70%, severe concentric left ventricular hypertrophy, trace aortic regurgitation, moderate tricuspid regurgitation, severe pulmonary hypertension. No vegetation noted. Patient's son was contacted via phone call and updated regarding current condition. Also recommended the patient have a [employer] or homecare ref so that she can be more independent in her own home. Plan is for return home with sister to help. Plan is for discharge home tomorrow. Patient will be transferred to [facility] floor. Home care will be arranged by caseworker. Objective - Vital Signs Vital signs: Vital Signs Temp 97.6 F 04/17/20 04:00 Pulse 53 L 04/17/20 04:00 Resp 16 04/17/20 04:00 BP 146/67 04/17/20 04:00 Pulse Ox 96 04/17/20 04:00 Intake & Output 04/16/20 04/17/20 04/17/20 18:59 06:59 18:59 Intake Total 472 240 Output Total 525 250 Balance -53 -10 Weight 60 kg Intake: Oral 472 240 Output: Urine 525 250 - Exam Review of Systems CONSTITUTIONAL: Well-developed no acute respiratory distress. Denies fever, denies chills. EARS, NOSE, MOUTH, THROAT, and FACE: No sore throat, lymphadenopathy, carotid bruits or deformity. RESPIRATORY: Positive shortness of breath cough and wheezes.. CARDIOVASCULAR: Positive PND orthopnea noedema significant shortness of breath with minimum exertion. GASTROINTESTINAL: Denies nausea and vomiting denies abdominal pain with change in bowel habit with no black stool or tarry stool no active bleed. GENITOURINARY: Negative for Hematuria or UTI, no kidney stones. INTEGUMENT/BREAST: Negative for any muscular injury with mild osteoarthritis.. HEMATOLOGIC/LYMPHATIC: Negative for bleed or purpura. MUSCULOSKELTAL: Negative for Myalgia or arthralgia. NEURLOGICAL: No LOC, Sz or syncope, blurred vision dizziness or abnormality.. Significant bilateral neuropathy with abnormal balance and gait. BEHAVIORAL/PSYCH: Negative. ENDOCRINE: Negative. Physical Examination General Appearance: Alert, cooperative, no distress, appears stated age. Patient is seen resting in bed. Neck HEENT: Supple, no lymphadenopathy, no thyroid enlargement, no carotid bruits. Lungs: Decreased breath sound bilaterally with fine rhonchi pulse mild expiratory wheezes. Chest Wall: Decrease expansion with deep inspiration no tenderness and no deformity was found on exam, no costochondral pain or discomfort. Heart: Irregular rate and rhythm, S1, S2 positive history positive 2/6 ejection systolic murmur in the apex with JVD. Back: Symmetric, no curvature, ROM normal, no CVA tenderness. Abdomen: Soft, no tenderness no rebound or rigidity slight tenderness in the mid abdominal region area as well. Extremities: Extremities normal, atraumatic, no cyanosis or edema. Pulses: 2+ and symmetric. Skin: Skin color, texture, tugor normal, no rashes or lesions. Neurologic: Alert oriented x3 cranial nerves II through XII intact, positive generalized weakness possibly abnormal gait imbalance patient still have trouble ambulating without help. - Labs CBC & Chem 7: 04/14/20 12:32 04/17/20 06:04 Labs: Abnormal Lab Results - Last 24 Hours (Table) 04/16/20 04/16/20 04/16/20 Range/Units 12:10 17:20 20:40 BUN (7-17) mg/dL Creatinine (0.52-1.04) mg/dL Glucose (74-99) mg/dL POC Glucose (mg/dL) 131 H 158 H 154 H (75-99) mg/dL 04/16/20 04/17/20 04/17/20 Range/Units 23:02 06:04 06:21 BUN 48 H (7-17) mg/dL Creatinine 1.28 H (0.52-1.04) mg/dL Glucose 102 H (74-99) mg/dL POC Glucose (mg/dL) 197 H 114 H (75-99) mg/dL Assessment and Plan Plan: 1 severe dyspnea and shortness of breath secondary to COPD and CHF. Continue Lasix 40 mg oral daily, lisinopril on hold, Lopressor 25 mg twice daily. Monitor I&O and daily weights. Coreg will be discontinued. 2 CHF: Mostly diastolic acute on chronic was start patient on IV diuretics watch daily weight watch for any worsening symptoms and with the slight change it's probably worth the effort to run another echocardiogram to compare to the last 1 since her endocarditis see any major abnormality or change with her valvular heart disease. Echocardiogram and possible KEV on this admission. 3 COPD with mild exacerbation. Continue on O2 continue DuoNeb and Pulmicort no steroid at this point. 4 atrial fibrillation paroxysmal. Continue eliquis 5 mg twice daily and metoprolol 25 mg twice a day. Discontinue Coreg 5 multiple CVA and TIA: Patient remain on Plavix continue to control her blood pressure continue secondary prevention with statin as well. 6 diabetes type 2: Continue patient on Lantus and NovoLog with Accu-Chek with sliding scales coverage and adjust dose as needed. 7 hypertension: Remain well controlled on current medication with metoprolol spironolactone and lisinopril will be placed on hold. 8 chronic kidney disease: Stage III. Hold lisinopril. 9 chronic depression: Patient remain on Zoloft and BuSpar. 10 seizure with no seizure activity lately symptom has been under control patient seen neurology continue with Depakote CAD she is off Keppra. 11 hyperlipidemia: Remain on pravastatin 20 mg daily. 12 hypothyroidism: Continue patient on levothyroxine 112 g daily. 13 GI bleed and severe gastritis: Has been on pantoprazole continue medication watch for any bleed. 14 adrenal insufficiency: Patient has been on fludrocortisone and blood pressure has been doing much better she is off hydrocortisone currently. DVT prophylaxis: On anticoagulation. GI prophylaxis: On pantoprazole. Discharge plan: Home tomorrow with [facility]. Impression and plan of care have been directed as dictated by the signing physician. Nubia Caruso nurse practitioner acting as scribe for signing physician.
[2020-04-17 17:17] LABS: Glucose,Whole Blood 117 mg/dL (75-99)
[2020-04-17 20:25] LABS: Glucose,Whole Blood 127 mg/dL (75-99)
[2020-04-17] MEDS: MELATONIN 5 MG TABLET PO SCH (20:34)
[2020-04-17] MEDS: INSULIN DETEMIR (LEVEMIR) 100 UNIT/ML SYR SQ SCH (20:35)
[2020-04-17 21:38] VITALS: TEMP 98
[2020-04-17 23:44] VITALS: RESP 19
[2020-04-18 06:20] VITALS: BP 163/70
[2020-04-18 07:10] LABS: Glucose,Whole Blood 88 mg/dL (75-99)
[2020-04-18] MEDS: LEVOTHYROXINE 112 MCG TAB PO SCH (07:10)
[2020-04-18] MEDS: INSULIN ASPART (NovoLOG) 100 UNIT/ML VIAL SQ SCH ×2 (07:10)
[2020-04-18 07:21] LABS: Calcium 9.3 mg/dL (8.4-10.2); Potassium 4.6 mmol/L (3.5-5.1)
[2020-04-18] MEDS: ALBUTEROL NEBULIZED 2.5 MG/3 ML INHALATION PRN (08:40)
[2020-04-18] MEDS: BUDESONIDE 1 MG/2 ML NEBU INHALATION PRN (08:40)
[2020-04-18 08:43] VITALS: PULSE 62
[2020-04-18] MEDS: FLUDROCORTISONE 0.1 MG TAB PO SCH (09:04)
[2020-04-18] MEDS: SODIUM BICARBONATE TAB 650 MG TAB PO SCH (09:04)
[2020-04-18] MEDS: APIXABAN 2.5 MG TABLET PO SCH (09:04)
[2020-04-18] MEDS: busPIRone HCl 10 MG TAB PO SCH (09:04)
[2020-04-18] MEDS: SPIRONOLACTONE 25 MG TAB PO SCH (09:04)
[2020-04-18] MEDS: FUROSEMIDE 40 MG TAB PO SCH (09:04)
[2020-04-18] MEDS: MULTIVITAMINS, THERA 1 EACH TAB PO SCH (09:04)
[2020-04-18] MEDS: PANTOPRAZOLE 40 MG TABLET PO SCH (09:05)
[2020-04-18] MEDS: METOPROLOL TARTRATE 25 MG TAB PO SCH (09:05)
[2020-04-18] MEDS: PSYLLIUM HUSK 100% 6 GM PACKET PO SCH (09:05)
[2020-04-18] MEDS: MAGNESIUM OXIDE 400 MG TAB PO SCH (09:05)
[2020-04-18] MEDS: SERTRALINE 50 MG TAB PO SCH (09:05)
[2020-04-18] MEDS: PRAVASTATIN SODIUM 20 MG TAB PO SCH (09:05)
[2020-04-18] MEDS: FERROUS SULFATE 325 MG TAB PO SCH (09:05)
[2020-04-18] MEDS: CLOPIDOGREL 75 MG TAB PO SCH (09:05)
[2020-04-18] MEDS: CYANOCOBALAMIN 500 MCG TAB PO SCH (09:06)
[2020-04-18] MEDS: DIVALPROEX 250 MG TABLET.DR PO SCH (09:06)
--- NOTE | 2020-04-18 09:14 | P.DS ---
Providers Date of admission: 04/14/20 13:59 Expected date of discharge: 04/18/20 Attending physician: Eleazar Mills Consults: 04/14/20 13:59 Consult Physician Urgent Consulting Provider: [facility] Reason/Comments: Dyspnea Do you want consulting provider notified?: Yes Consult Physician Urgent Consulting Provider: Jessica Abreu Reason/Comments: Dyspnea Do you want consulting provider notified?: Yes Primary care physician: [facility] Course: 79-year-old female one of my office patient for the last 20 years with multiple medical problem known to have history of atherosclerotic heart disease, A. fib, history of CVA, history of CHF and COPD who had few weeks ago and infectious pericarditis was treated with IV antibiotic for over 6 weeks was seen by an one of the cardiothoracic surgeon at [facility] and was sent to [facility] rehab for the time she was on IV antibiotics. Patient had recover and done well was discharged home successfully still require home O2. Patient was hospitalized again for mild dyspnea and shortness of breath with A. fib with RVR treated and done well remain on anticoagulation with eloquent was on Eliquis for A. fib, Plavix for CVA blood sugar has been under control lately. Apparently patient developed to have severe gastritis with mild epigastric pain nausea vomiting since Thursday last week symptom becomes slightly bit worse through the week the patient has not been able to tolerate any food or fluid. Her caregiver had called early this morning complaining about was going on with Tammi was instructed to bring her to [facility] where was seen. Patient is slightly dehydrated has a significant elevated BNP, had elevated lactic acid with sign and symptoms consistent with CHF with mild COPD and severe gastritis with no sign of bleed her hemoglobin has been stable since last visit. Patient was started on IV pantoprazole, IV diuretics along with updraft treatment and O2 and admitted to the hospital for the above problem. 04/15: Cardiology and pulmonary medicine on consult. Echocardiogram will be ordered. Patient states that she is scheduled for which she believes to be a KEV with Dr. Rae on April 24 and would like to have this done while hospitalized if possible. Will reach out to Dr. Rae regarding this. Patient has been afebrile, heart rate 60, blood pressure 150/79, pulse ox 99% on 3 L nasal cannula. nurse first aid is a sinus rhythm. Nausea and vomiting are currently controlled. 04/16: Patient states she feels about the same from yesterday. She denies having any chest pain. She denies any shortness of breath when she is in bed. No lower extremity edema. She does complain that whenever she moves she gets an upset stomach. Repeat blood work reveals CO2 34, BUN 43 and creatinine 1.48. Lisinopril will be placed on hold. Blood sugars are running between 84 and 195. The patient was seen yesterday by pulmonary medicine with recommendations for IV Lasix, repeat echocardiogram, continue eliquis. No plan for thoracentesis on the right as this has been confirmed to be transudate. Patient is also been seen and followed by cardiology with recommendations to continue cardiac medications in diuresing. Will add in physical therapy to evaluate for home care or subacute need. 04/17: The patient denies any new complaints. She states she is feeling a lot better so she came in to the hospital. Lisinopril was placed on hold due to worsening renal function which is improved with BUN 48 creatinine 1.28. Blood sugars running between 102 197. Patient has been afebrile, heart rate 56, blood pressure 162/71, pulse ox 97% on 3 L nasal cannula. Cardiology does not plan to do KEV on this admission. Echocardiogram reveals EF greater than 70%, severe concentric left ventricular hypertrophy, trace aortic regurgitation, moderate tricuspid regurgitation, severe pulmonary hypertension. No vegetation noted. Patient's son was contacted via phone call and updated regarding current condition. Also recommended the patient have a [employer] or homecare ref so that she can be more independent in her own home. Plan is for return home with sister to help. Plan is for discharge home tomorrow. Patient will be transferred to [facility] floor. Home care will be arranged by residential case manager. 04/18: Patient has been afebrile, heart rate 62, blood pressure 163/70, pulse ox 99% on 2 L nasal cannula. Repeat lab work reveals sodium 141, potassium 4.6, chloride 100, CO2 36, BUN 47 creatinine 1.29. Blood sugars running between 82 and 127. Patient denies any new complaints. Her breathing status is stable. Home care has been arranged and family is expecting her home today. Patient will be discharged home today in stable condition. Discharge diagnoses: 1 severe dyspnea and shortness of breath secondary to COPD and CHF. 2 acute on chronic diastolic heart failure 3 COPD with mild exacerbation. 4 atrial fibrillation paroxysmal. 5 multiple CVA and TIA 6 diabetes type 2 7 hypertension 8 chronic kidney disease: Stage III. 9 recurrent depression 10 seizure with no seizure activity lately 11 hyperlipidemia 12 hypothyroidism 13 GI bleed and severe gastritis 14 adrenal insufficiency COVID-19 infection not present. Discharge plan: Home with [facility]. Impression and plan of care have been directed as dictated by the signing physician. Nubia Caruso nurse practitioner acting as scribe for signing physician. Patient Condition at Discharge: Good Plan - Discharge Summary New Discharge Prescriptions: Continue Pravastatin Sodium [Pravachol] 20 mg PO DAILY Budesonide 1 mg INHALATION RT-BID PRN PRN Reason: Shortness Of Breath Ferrous Sulfate [Iron (65 MG Elemental)] 325 mg PO BID Levothyroxine Sodium 112 mcg PO DAILY Lisinopril [Prinivil] 5 mg PO DAILY Magnesium Oxide 400 mg PO DAILY Melatonin 10 mg PO HS Sertraline [Zoloft] 50 mg PO DAILY Acetaminophen Tab [Tylenol] 650 mg PO Q6H PRN PRN Reason: Pain Or Fever > 100.5 Multivitamins, Thera [Multivitamin (formulary)] 1 tab PO DAILY Cyanocobalamin (Vitamin B-12) [Vitamin B-12] 1,000 mcg PO DAILY Sodium Bicarbonate Tab 650 mg PO BID busPIRone HCl [Buspar] 10 mg PO BID Furosemide [Lasix] 40 mg PO DAILY Fludrocortisone Acetate 0.1 mg PO BID Spironolactone [Aldactone] 25 mg PO DAILY Psyllium Husk [Metamucil] 0.4 gm PO DAILY Sennosides [Senna] 17.2 mg PO DAILY PRN PRN Reason: Constipation Metoprolol Tartrate [Lopressor] 25 mg PO BID Apixaban [Eliquis] 2.5 mg PO BID Divalproex Sodium 250 mg PO BID Albuterol Sulfate [Proair Hfa] 2 puff INHALATION RT-Q4H PRN PRN Reason: Shortness Of Breath Pantoprazole [Protonix] 40 mg PO DAILY Clopidogrel [Plavix] 75 mg PO DAILY Albuterol Nebulized [Ventolin Nebulized] 1.25 mg INHALATION RT-Q4H PRN PRN Reason: Shortness Of Breath Insulin Glargine [Lantus] See Protocol SQ HS INSULIN LISPRO (HumaLOG) [humaLOG] See Protocol SQ AC-TID Discontinued Carvedilol [Coreg] 3.125 mg PO BID Discharge Medication List Pravastatin Sodium [Pravachol] 20 mg PO DAILY 04/23/14 [History] Acetaminophen Tab [Tylenol] 650 mg PO Q6H PRN 05/20/19 [History] Budesonide 1 mg INHALATION RT-BID PRN 05/20/19 [History] Ferrous Sulfate [Iron (65 MG Elemental)] 325 mg PO BID 05/20/19 [History] Levothyroxine Sodium 112 mcg PO DAILY 05/20/19 [History] Lisinopril [Prinivil] 5 mg PO DAILY 05/20/19 [History] Magnesium Oxide 400 mg PO DAILY 05/20/19 [History] Melatonin 10 mg PO HS 05/20/19 [History] Sertraline [Zoloft] 50 mg PO DAILY 05/20/19 [History] Multivitamins, Thera [Multivitamin (formulary)] 1 tab PO DAILY 09/23/19 [History] Cyanocobalamin (Vitamin B-12) [Vitamin B-12] 1,000 mcg PO DAILY 09/26/19 [History] Fludrocortisone Acetate 0.1 mg PO BID 10/24/19 [History] Furosemide [Lasix] 40 mg PO DAILY 10/24/19 [History] Sodium Bicarbonate Tab 650 mg PO BID 10/24/19 [History] Spironolactone [Aldactone] 25 mg PO DAILY 10/24/19 [History] busPIRone HCl [Buspar] 10 mg PO BID 10/24/19 [History] Albuterol Nebulized [Ventolin Nebulized] 1.25 mg INHALATION RT-Q4H PRN 04/14/20 [History] Albuterol Sulfate [Proair Hfa] 2 puff INHALATION RT-Q4H PRN 04/14/20 [History] Apixaban [Eliquis] 2.5 mg PO BID 04/14/20 [History] Clopidogrel [Plavix] 75 mg PO DAILY 04/14/20 [History] Divalproex Sodium 250 mg PO BID 04/14/20 [History] INSULIN LISPRO (HumaLOG) [humaLOG] See Protocol SQ AC-TID 04/14/20 [History] Insulin Glargine [Lantus] See Protocol SQ HS 04/14/20 [History] Metoprolol Tartrate [Lopressor] 25 mg PO BID 04/14/20 [History] Pantoprazole [Protonix] 40 mg PO DAILY 04/14/20 [History] Psyllium Husk [Metamucil] 0.4 gm PO DAILY 04/14/20 [History] Sennosides [Senna] 17.2 mg PO DAILY PRN 04/14/20 [History] Follow up Appointment(s)/Referral(s): Eleazar Mills MD [Primary Care Provider] - 04/24/20 11:00 am [facility], [NON-STAFF] - Mp Munoz MD [STAFF PHYSICIAN] - 05/15/20 10:30 am Patient Instructions/Handouts: Gastritis (DC), Bradycardia (DC), Dyspnea (DC) Activity/Diet/Wound Care/Special Instructions: PT at home Discharge Disposition: HOME WITH HOME HEALTH SERVICES
--- NOTE | 2020-04-18 11:37 | P.PN ---
Subjective Progress Note Date: 04/18/20 Principal diagnosis: Acute on chronic hypoxic respiratory failure secondary to acute exacerbation of diastolic congestive heart failure and chronic right-sided pleural effusion 79-year-old white female with multiple medical pounds and comorbidities. She is known to have CAD, chronic A. fib, CHF, COPD, previous history of CVA/TIA, chronic stage III kidney disease, diabetes mellitus type 2, hypertension and moderate to severe pulmonary hypertension based on the previous echocardiogram along with diastolic heart failure, and seizure disorder. The patient also has a chronic right-sided pleural effusion that was drained during a previous admission in October 2019 and the fluid was essentially transudate. This is attributed to her congestion heart failure. Subsequently, the patient had a brief hospitalization at [facility] for a pericardial effusion and the patient required a pericardiocentesis. She was apparently given antibiotics for total of 6 weeks and she was sent to a group home at [facility] and she has been home since. The patient was noted to be having worsening shortness of breath. She apparently was at home and she developed some epigastric pain and nausea and emesis and she was getting more weak and she has been able to tolerate any food or fluid intake. Her caregiver called and was instructed for this patient to come into the emergency department. At a time of arrival, the patient had elevated lactic acid level in her chest x-ray was consistent with chronic CHF with a stable right-sided pleural effusion. No significant l eukocytosis. BUN was at 38 with a creatinine of 1.2. Serum bicarb was 28. The proBNP level was 31,001 100. Troponins were negative. UA was negative. Still some was attempted 0.4. Lactic acid level was at 2.9 at time of admission and dropped down to 0.7. She is afebrile at 3 L of oxygen by nasal cannula with a pulse is 98%. Noted the patient is on a combination of Lasix and Aldactone on outpatient basis. She is still on antibiotic ventilation with Eliquis. Rest of the medications have been essentially unchanged. Reevaluated today on 04/16/20, patient is doing a bit better, breathing easier, remains on 3 L nasal cannula, and her O2 saturation is 100%. Blood pressure is stable. Patient remains on diuretics, labs are unremarkable except for elevated bicarb of 34 BUN is 43 creatinine is 1.48. Patient is also on bronchodilators in the form of albuterol, she is on Pulmicort, and on Lasix 40 mg by mouth daily. IV fluid is at KVO, and she is on Aldactone at 25 mg daily On 04/17/2020 patient seen in follow-up on selective care unit, she is resting comfortably in bed, she has no acute distress, no worsening dyspnea, seems to be pre-comfortable, no compressive chest pain. She is on 3 L of oxygen and a pulse ox of 97%, hemodynamically stable, vital signs are stable, no worsening dyspnea. She continues on maintenance dose of oral Lasix. She's had no fever or chills. Renal function was improving, electrolytes are within normal limits, BUN is 48, and creatinine is 1.28 Patient is seen today 04/18/2020 and follow-up on the selective care unit. She is awake and alert in no acute distress. Resting fairly comfortably in bed. She is maintaining O2 saturations in the high 90s on 2 L/m per nasal cannula. She's been afebrile. Sodium 141. Potassium 4.6. Creatinine 1.29. She's been maintained on albuterol, Pulmicort, diuretics. Objective - Vital Signs Vital signs: Vital Signs Temp 98 F 04/18/20 06:19 Pulse 62 04/18/20 08:55 Resp 19 04/18/20 07:59 BP 163/70 04/18/20 06:19 Pulse Ox 99 04/18/20 06:19 Intake & Output 04/17/20 04/18/20 04/18/20 18:59 06:59 18:59 Intake Total 360 Output Total 500 725 Balance -140 -725 Intake: Oral 360 Output: Urine 500 725 Other: Voiding Method Bedpan # Bowel Movements 1 - Exam GENERAL EXAM: Alert, very pleasant, 71-year-old female patient on 2 L of oxygen the pulse ox of 99% comfortable in no apparent distress. HEAD: Normocephalic/atraumatic. EYES: Normal reaction of pupils, equal size. Conjunctiva pink, sclera white. NOSE: Clear with pink turbinates. THROAT: No erythema or exudates. NECK: No masses, no JVD, no thyroid enlargement, no adenopathy. CHEST: No chest wall deformity. Symmetrical expansion. LUNGS: Equal air entry with crackles in the right lung base. CVS: Regular rate and rhythm, normal S1 and S2, no gallops, no murmurs, no rubs ABDOMEN: Soft, nontender. No hepatosplenomegaly, normal bowel sounds, no guarding or rigidity. EXTREMITIES: No clubbing, no edema, no cyanosis, 2+ pulses and upper and lower extremities. MUSCULOSKELETAL: Muscle strength and tone normal. SPINE: No scoliosis or deformity SKIN: No rashes CENTRAL NERVOUS SYSTEM: No focal deficits, tone is normal in all 4 extremities. PSYCHIATRIC: Alert and oriented -3. Appropriate affect. Intact judgment and insight. - Labs CBC & Chem 7: 04/14/20 12:32 04/18/20 06:08 Labs: Abnormal Lab Results - Last 24 Hours (Table) 04/17/20 04/17/20 04/17/20 Range/Units 11:52 17:16 20:24 Carbon Dioxide (22-30) mmol/L BUN (7-17) mg/dL Creatinine (0.52-1.04) mg/dL POC Glucose (mg/dL) 162 H 117 H 127 H (75-99) mg/dL 04/18/20 Range/Units 06:08 Carbon Dioxide 36 H (22-30) mmol/L BUN 47 H (7-17) mg/dL Creatinine 1.29 H (0.52-1.04) mg/dL POC Glucose (mg/dL) (75-99) mg/dL Assessment and Plan Assessment: Acute on chronic hypoxic respiratory failure secondary to diastolic congestive heart failure, acute exacerbation of diastolic congestive heart failure. Chronic right-sided pleural effusion previous thoracentesis and it was transudative in nature. Paroxysmal atrial fibrillation. Chronic kidney disease stage III. Benign essential hypertension. History of seizure disorder. History of pericardial effusion requiring pericardiocentesis in outside institution. Hypothyroidism. Type 2 diabetes. Dyslipidemia. History of infective endocarditis. Plan: The patient was seen and evaluated by Dr. Abreu She is stable for discharge from the pulmonary standpoint Follow up in our office in 1-2 weeks' time I, the cosigning physician, performed a history & physical examination of the patient. Lungs sounds with crackles in the right lung base. Maintaining good O2 saturations in the 90s on 2 L/m per nasal cannula. I discussed the assessment and plan of care with my nurse practitioner, Nataly Reveles. I attest to the above note as dictated by her.
--- NOTE | 2020-04-18 14:04 | P.PN ---
Subjective Progress Note Date: 04/18/20 This is a pleasant 79-year-old female patient with history of CVA, diabetes, paroxysmal atrial fibrillation, chronic respiratory failure, on home oxygen, congestive heart failure. 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 She does follow with Dr. Carter. She underwent echocardiogram during admission in October 2019 which showed questionable vegetation on aortic valve leaflet and was scheduled for transesophageal echocardiogram with Dr. Rae in the next couple weeks as it been postponed due to COVID-19 restrictions. She presented with complaints of abdominal pain, nausea vomiting as well as complaints of being progressively more short of breath over the last week. Chest x-ray on admission showed COPD, chronic pleural parenchymal changes, small bilateral pleural effusions. EKG showed sinus mechanism with right bundle branch block and T-wave inversions inferiorly in the precordial leads, similar to previous EKGs. Troponin was negative. Anti-proBNP is 31,000. Labs this morning show BUN of 43 and creatinine 1.48. Upon examination patient is resting comfortably in bed. She's feels significantly better compared to admission. 04/17/2020 Patient was seen and examined this morning sitting up in bed resting comfortably. She is overall feeling quite a bit better today. Her breathing is stable. She denies chest discomfort, palpitations, or dizziness. Her breathing is stable. Echocardiogram showed severe LVH with hyperdynamic LV systolic function with an estimated ejection fraction of greater than 70%, mildly enlarged RV, moderate TR and severe pulmonary hypertension with no evidence of vegetation in the aortic valve. Left shown improvement in her renal function since yesterday with a BUN of 30 and creatinine 1.28. 04/18/2020 Patient was seen and examined this morning resting comfortably in bed. Overall she's feeling significantly better compared to admission. Her breathing is stable. She denies any chest discomfort, palpitations or dizziness. Labs today showed a BUN of 47 and creatinine 1.29. She is anxious to be discharged home. Objective - Vital Signs Vital signs: Vital Signs Temp 98 F 04/18/20 06:19 Pulse 62 04/18/20 08:55 Resp 19 04/18/20 07:59 BP 163/70 04/18/20 06:19 Pulse Ox 99 04/18/20 06:19 Intake & Output 04/17/20 04/18/20 04/18/20 18:59 06:59 18:59 Intake Total 360 Output Total 500 725 Balance -140 -725 Intake: Oral 360 Output: Urine 500 725 Other: Voiding Method Bedpan # Bowel Movements 1 - Exam PHYSICAL EXAMINATION: HEENT: Head is atraumatic, normocephalic. Pupils equal, round. Neck is supple. There is no elevated jugular venous pressure. HEART EXAMINATION: Heart sounds regular, S1 and S2 with a systolic murmur. CHEST EXAMINATION: Lungs reveal diminished air entry. No chest wall tenderness is noted on palpation or with deep breathing. ABDOMEN: Soft, nontender. Bowel sounds are heard. No organomegaly noted. EXTREMITIES: 2+ peripheral pulses with no evidence of peripheral edema and no calf tenderness noted. NEUROLOGIC patient is awake, alert and oriented x3. . - Labs CBC & Chem 7: 04/14/20 12:32 04/18/20 06:08 Labs: Abnormal Lab Results - Last 24 Hours (Table) 04/17/20 04/17/20 04/18/20 Range/Units 17:16 20:24 06:08 Carbon Dioxide 36 H (22-30) mmol/L BUN 47 H (7-17) mg/dL Creatinine 1.29 H (0.52-1.04) mg/dL POC Glucose (mg/dL) 117 H 127 H (75-99) mg/dL Assessment and Plan Assessment: #1 dyspnea secondary to combination of acute on chronic congestive heart failure, diastolic and COPD #2 paroxysmal atrial fibrillation on atrial fibrillation with Eliquis, currently in sinus rhythm #3 history of infective endocarditis #4 possible aortic valve leaflet vegetation on echocardiogram done in October with no evidence of this on echocardiogram done this admission #5 history of CVA #6 chronic respiratory failure on home oxygen #7 hypertension Plan: From cardiology's perspective, Medications were reviewed and will continue the s sania. She is stable for discharge home from our standpoint. She will follow-up in the office with Dr. Rae. [employer] note has been reviewed, I agree with a documented findings and plan of care. Patient was seen and examined.
== END 2020-04-18 11:25 | disposition home health service (06) | DRG 291 ==
LOC: EC 11:53 → 3SCARD 13:59
PROVIDERS: ADMIT Internal Medicine Geriatric Medicine; ATTEND Internal Medicine Geriatric Medicine
DX: I13.0 Hypertensive heart and chronic kidney disease with heart failure and stage 1 through stage 4 chronic kidney disease, or unspecified chronic kidney disease (principal); I50.33 Acute on chronic diastolic (congestive) heart failure; J96.21 Acute and chronic respiratory failure with hypoxia; K29.71 Gastritis, unspecified, with bleeding; E27.40 Unspecified adrenocortical insufficiency; F33.9 Major depressive disorder, recurrent, unspecified; I48.20 Chronic atrial fibrillation, unspecified; J44.1 Chronic obstructive pulmonary disease with (acute) exacerbation; Z20.828 Contact with and (suspected) exposure to other viral communicable diseases; E03.9 Hypothyroidism, unspecified; E11.22 Type 2 diabetes mellitus with diabetic chronic kidney disease; E78.5 Hyperlipidemia, unspecified; E86.0 Dehydration; F41.1 Generalized anxiety disorder; G40.909 Epilepsy, unspecified, not intractable, without status epilepticus; I25.10 Atherosclerotic heart disease of native coronary artery without angina pectoris; I27.20 Pulmonary hypertension, unspecified; I45.10 Unspecified right bundle-branch block; I48.0 Paroxysmal atrial fibrillation; N18.3 Chronic kidney disease, stage 3 (moderate); Z79.01 Long term (current) use of anticoagulants; Z79.02 Long term (current) use of antithrombotics/antiplatelets; Z79.4 Long term (current) use of insulin; Z79.51 Long term (current) use of inhaled steroids; Z79.82 Long term (current) use of aspirin; Z79.890 Hormone replacement therapy; Z79.899 Other long term (current) drug therapy; Z80.8 Family history of malignant neoplasm of other organs or systems; Z82.49 Family history of ischemic heart disease and other diseases of the circulatory system; Z86.73 Personal history of transient ischemic attack (TIA), and cerebral infarction without residual deficits; Z90.710 Acquired absence of both cervix and uterus; Z99.81 Dependence on supplemental oxygen; Z83.79 Family history of other diseases of the digestive system; Z80.3 Family history of malignant neoplasm of breast; Z80.0 Family history of malignant neoplasm of digestive organs; Z88.1 Allergy status to other antibiotic agents; Z91.041 Radiographic dye allergy status
CPT/HCPCS: 36415; 71046; 80048; 80053; 81003; 83605; 83690; 83735; 83880; 84484; 85025; 85610; 85730; 93005; 93306; 94640; 96361; 96374; 99285